=== PATIENT | male | born 1950 | race Caucasian/White ===

== ENCOUNTER 2018-03-17 15:38 | Outpatient (REF) | payer MEDICARE, SELFPAY ==
[2018-03-17 19:45] LABS: Abs Immature Grans 0.02 k/cumm (0.0-0.09); Absolute Basophil Count 0.04 k/cumm (0.0-0.2); Absolute Eosinophil Count 0.15 k/cumm (0.0-0.7); Absolute Lymphocyte Count 1.88 k/cumm (1.2-3.4); Absolute Monocyte Count 0.49 k/cumm (0.11-0.7); Absolute Neutrophil Count 4.66 k/cumm (1.2-6.7); Basophils % 0.6; Eosinophils % 2.1; HCT 41.3 % (40.0-50.0); HGB 14.1 g/dL (13.5-17.5); Immature Grans % 0.3; Mean Corp. HGB Concentration 34.1 g/dL (32.0-36.0); Mean Corpuscular Hemoglobin 30.4 pg (27.0-33.0); Monocytes % 6.8; Neutrophils % 64.2; Platelet Count 229 x1000/uL (130-400); RBC 4.64 m/cumm (4.50-6.00); RBC Distribution Width 12.5 % (11.8-14.1); White Blood Cell Count 7.24 k/cumm (4.4-10.8)
[2018-03-17 19:54] LABS: Anion Gap 9.8 mmol/L (3-11); BUN 19 mg/dL (7-18); CO2 27.2 mmol/L (21.0-32.0); CREATININE 0.94 mg/dL (0.70-1.30); Calcium 8.8 mg/dL (8.5-10.1); Chloride 105 mmol/L (98-107); Glucose 85 mg/dL (70-100); Potassium 4.5 mmol/L (3.5-5.1); Sodium 142 mmol/L (136-145); Uric Acid 6.4 mg/dL (3.5-7.2)
== END 2018-03-17 15:58 ==
LOC: NCHCN 15:38
PROVIDERS: PCP Specialist/Technologist Athletic Trainer; Visit Provider Physician Assistant Medical
DX: M10.9 Gout, unspecified (principal)
CPT/HCPCS: 80048; 84550; 85025

== ENCOUNTER 2019-01-11 09:09 | Outpatient (REF) | payer MEDICARE, SELFPAY ==
[2019-01-11 21:50] LABS: Anion Gap 11.9 mmol/L (3-11); BUN 20 mg/dL (7-18); CO2 24.1 mmol/L (21.0-32.0); CREATININE 0.89 mg/dL (0.70-1.30); Calcium 8.7 mg/dL (8.5-10.1); Calculated LDL 135 mg/dL; Chloride 105 mmol/L (98-107); Cholesterol 201 mg/dL (50-200); Glucose 86 mg/dL (70-100); HDL Cholesterol 44 mg/dL (40-60); Potassium 4.3 mmol/L (3.5-5.1); Sodium 141 mmol/L (136-145); Triglyceride 113 mg/dL (30-150)
== END 2019-01-11 09:29 ==
LOC: NCHCN 09:09
PROVIDERS: PCP Specialist/Technologist Athletic Trainer; Visit Provider Specialist/Technologist Athletic Trainer
DX: E78.5 Hyperlipidemia, unspecified (principal); R81 Glycosuria
CPT/HCPCS: 80048; 80061; 83721

== ENCOUNTER 2019-02-13 19:18 | Emergency (ER) | payer MEDICARE, OTHER, SELFPAY ==
[2019-02-13 19:25] VITALS: BP 126/71; PULSE 61; RESP 18; TEMP 37; O2SAT 95
--- NOTE | 2019-02-13 19:49 | W.ED.GENAD ---
Discharge Plan Disposition Patient Disposition: HOME Condition: Stable Discharge Details Chief Complaint: Burn Clinical Impression: Burn of arm, left, second degree Primary Care Provider: Eusebio Montoya ED Provider: Maury Maier Home Meds and New Rx's Prescriptions: No Action ibuprofen 200 mg capsule 600 mg PO TID PRNRF: 0 fluticasone propionate [Flonase Allergy Relief] 50 mcg/actuation spray,suspension 1 spray PERRI DAILY RF: 0 loratadine-pseudoephedrine [Claritin-D 24 Hour] 10-240 mg tablet extended release 24 hr 1 tab PO DAILY RF: 0 Discharge Instructions Instructions: Second Degree Burn (ED), Acute Wound Care (ED) Additional Instructions: Please keep dressing in place for the next 3 to 7 days to ensure appropriate healing. Watch for signs of any worsening symptoms or infection of the wound if this occurs return to the emergency department for reassess. Feel free to follow-up with primary care provider also as needed for reassessment and wound check. Referrals: Eusebio Montoya [Primary Care Provider] - (As needed for reassessment or if not healing well) Medical Decision Making Patient presenting to the emergency department for chief complaint of left forearm burn. Patient reports yesterday while working on a radiator [employer] he suffered a steam burn to his forearm. He noted redness yesterday but no other symptoms. He did state it was painful and had sensation at that time. Today he went to work and covered it and worked all day but when he removed the dressing and showed his family they requested he come to emergency department for evaluation. Patient has a second-degree burn to the volar aspect of the left forearm that is approximately 1% of body surface area using palmar method. Patient does have some blisters and some slight sloughing of skin surrounded by other popped blisters. Sensation is intact patient has a very high pain threshold denies severe significant pain. Plan to coat with bacitracin and placed on Ag Mepilex dressing. Otherwise I feel the patient given that this is greater than 24 hours old may follow-up with primary care provider as needed or return for any new or worsening symptoms. Patient's tetanus is up-to-date. After discussion of diagnosis and plan of care patient has no further needs, questions, or concerns and states clear understanding to return to the emergency department for any worsening symptoms. HPI General Mode of arrival: ambulatory. Date/Time Provider Initiated Documentation: 02/13/19 19:28. Limitations to Documentation: no limitations. Information obtained by: patient and RN notes reviewed. History of Present Illness 68 year old M presents to the emergency department with the chief complaint of Left arm burn, described as mild, with intensity rated at 1. Quality is described as aching (Tingling), and is localized to the left and upper extremity. Patient started experiencing this day(s) (1) and it has been constant. Patient notes no other symptoms.. Patient did receive the following treatments prior to arrival, none Related Data Home Medications Medication Instructions Recorded Confirmed fluticasone propionate 50 1 spray PERRI DAILY 02/13/19 02/13/19 mcg/actuation nasal spray,suspension ibuprofen 200 mg capsule 600 mg PO TID PRN cap 02/13/19 02/13/19 loratadine-pseudoephedrine ER 10 1 tab PO DAILY 02/13/19 02/13/19 mg-240 mg tablet,extended [id number] Allergies Allergy/AdvReac Type Severity Reaction Status Date / Time No Known Allergies Allergy Unverified 02/13/19 19:30 General Stated Complaint: Burn HOWARD: 4 Review of Systems Constitutional Denies fever(s) Cardiovascular Denies chest pain and Denies dyspnea Respiratory Denies dyspnea Integumentary/Breasts Reports as per HPI and Reports other (Burn) Neurologic Denies sensory deficit [facility] Medical History Bradycardia (Acute) Chronic back pain (Acute) Dermatitis (Acute) Social History Smoking/Tobacco Use Status: Never Drug use: Never Do you feel safe in your relationship?: Yes Exam Const General: cooperative, no acute distress and not ill appearing Orientation: alert, awake and oriented x3 HENMT Mouth: moist mucous membranes Resp Effort & Inspection: normal respiratory effort, able to speak in complete sentences and no respiratory distress Cardio Rate: regular rate Rhythm: regular rhythm Skin Wounds: wounds noted (Second-degree burn with blisters and some sloughing of skin) left volar forearm Course Vital Signs Temperature 37 C 02/13/19 19:25 Pulse 61 02/13/19 19:25 Respiratory Rate 18 02/13/19 19:25 Blood Pressure 126/71 02/13/19 19:25 Pulse Oximetry 95 02/13/19 19:25 Temperature 37 C 02/13/19 19:25 Temperature Source Skin 02/13/19 19:25 Pulse 61 02/13/19 19:25 Respiratory Rate 18 02/13/19 19:25 Blood Pressure 126/71 02/13/19 19:25 Blood Pressure Position Sitting 02/13/19 19:25 Pulse Oximetry 95 02/13/19 19:25 Oxygen Delivery Method Room Air 02/13/19 19:25 Oxygen Flow Rate 0 02/13/19 19:25 Pain Level 0 02/13/19 19:25
== END 2019-02-13 20:16 | disposition home or self-care (01) ==
PROVIDERS: Emergency Provider Nurse Practitioner Family; PCP Specialist/Technologist Athletic Trainer
DX: T22.212A Burn of second degree of left forearm, initial encounter (principal); X13.1XXA Other contact with steam and other hot vapors, initial encounter; T31.0 Burns involving less than 10% of body surface
CPT/HCPCS: 16020

== ENCOUNTER → 2019-03-29 14:32 | Outpatient (BNVA) | payer MEDICARE, OTHER, SELFPAY | PROVIDERS: PCP Specialist/Technologist Athletic Trainer; Referring Provider Specialist/Technologist Athletic Trainer; Visit Provider Physical Therapy Assistant | DX: Z12.11 Encounter for screening for malignant neoplasm of colon (principal) ==

== ENCOUNTER 2019-04-11 11:42 | Outpatient (CLI) | payer MEDICARE, OTHER, SELFPAY ==
--- NOTE | 2019-04-11 11:53 | DI.RAD_ITS ---
EXAM: XR KNEE LT 3V AP,LAT,YOGI INDICATION: LT KNEE PAIN, M25.562. COMPARISON: No exams were available for comparison TECHNIQUE: 2D digital imaging was performed. FINDINGS: The bony structures are normally mineralized and joint spaces intact. Hypertrophic spurring is ident ified at the insertion of the quadriceps tendon on the patella. There is no evidence of a fracture o r dislocation. There is no evidence of a joint effusion.
== END 2019-04-11 12:02 ==
PROVIDERS: PCP Specialist/Technologist Athletic Trainer; Visit Provider Internal Medicine Hematology
DX: M25.562 Pain in left knee (principal)
CPT/HCPCS: 73562

== ENCOUNTER 2019-04-23 06:13 | Day surgery (SDC) | payer MEDICARE, OTHER, SELFPAY ==
[2019-04-23 06:24] VITALS: BP 109/69; PULSE 61; RESP 16; TEMP 36.1; O2SAT 97
--- NOTE | 2019-04-23 06:41 | W.COLOREPORT ---
Date of service: 04/23/19 Time of Service: 07:21 Colonoscopy Report Date of procedure: 04/23/19 Pre-op diagnosis general: Colon Cancer Screening Post-op diagnosis procedure note: other (colorectal polyps, diverticulosis, internal hemorrhoids) Procedure: Colonoscopy with polypectomy by cold forceps Surgeon: Meg Srivastvaa Anesthesia proc note operative: other (General/ ASA 2/Brian Bennett, JD) Estimated blood loss (mL): 3 Pathology: other (ascending polyp and sigmoid polyp) Complications: None Disposition: same day Indications: Mr. Contreras is a pleasant 68-year-old gentleman who is here today for a screening colonoscopy. His last colonoscopy was in 2000 and was normal. He has no family history of colon cancer. Risks, benefits and complications have been reviewed. Complications include but are not limited to bleeding, pain, perforation, missed small lesion/polyp, sore throat, aspiration and adverse reaction to the medications. Questions were entertained and answered to their satisfaction and they wished to proceed. No guarantees were given or implied. Prep: Miralax/Dulcolax Procedure Start Time: :21 Procedure End Time: 07:49 Retraction Time: 22 minutes Findings: 2 small sessile polyps. Both <10 mm mild sigmoid diverticulosis Grade 1 internal hemorrhoids Procedure Description: After informed consent was obtained the patient was taken to the procedure room and placed in a left decubitous position. Monitors were applied and a time out was done. The patients name, date of , procedure, allergies to medications and metal in their body was reviewed. The patient was then sedated. Once sedated and comfortable a rectal exam was done. External exam revealed mild rectal prolapse. Internal exam revealed a normal sphincter tone and no palpable masses. The prostate felt smooth. The scope was then introduced and retro-flexed. Grade 1 internal hemorrhoids were identified. The scope was then advanced to the cecum without difficulty. The TI and appendiceal orifice were identified. The prep was good. The scope was then slowly retracted over 22 minutes back into the rectum. Polyps were removed with cold forceps in the ascending colon and sigmoid colon. There was mild diverticulosis of the sigmoid colon. The scope was removed and the patient was woken up and taken back to Same day surgery in stable condition. The patient tolerated the procedure well and there were no immediate complications. Follow up: Follow up will depend on final pathology.
--- NOTE | 2019-04-23 06:42 | W.PM.DSUDISC ---
Discharge Plan Disposition Patient Disposition: HOME Condition: Good Discharge Details Reason For Visit: Colonoscopy Attending Provider: Meg Srivastava Primary Care Provider: Eusebio Montoya Home Meds and New Rx's Prescriptions: Continued ibuprofen 200 mg capsule 600 mg PO TID PRNRF: 0 fluticasone propionate [Flonase Allergy Relief] 50 mcg/actuation spray,suspension 1 spray PERRI DAILY RF: 0 loratadine-pseudoephedrine [Claritin-D 24 Hour] 10-240 mg tablet extended release 24 hr 1 tab PO DAILY RF: 0 Discontinued polyethylene glycol 3350 17 gram/dose powder 238 g PO ONCE Qty: 238 RF: 0 bisacodyl [Dulcolax (bisacodyl)] 5 mg tablet,delayed release (DR/EC) 5 mg PO ONCE Qty: 4 RF: 0 Discharge Instructions Instructions: Colonoscopy (DC), Diverticulosis (DC), Hemorrhoids (DC) Additional Instructions: Findings: 2 small polyps Diverticulosis Internal hemorrhoids Follow up: depends on final pathology Please call if you develop: fevers >101.5 Nausea or Vomiting Abdominal pain that is not transient DAY SURGERY UNIT POST ENDOSCOPY INSTRUCTIONS 1. Because there will be medication in your system for the next 24 hours, you may feel a little sleepy. Your coordination will be affected. Therefore: a. Do not drive or operate dangerous equipment for 24 hours. b. Do not drink alcohol beverages for 24 hours (not even beer). c. Plan to go home and rest for the day. 2. Generally there are no restrictions on your activity after a day or so has gone by, but you may feel a bit fatigued for a few days. 3 After you arrive home you may have a light meal and return to a normal diet as you can tolerate it without feeling sick to your stomach. 4. After surgery, you may feel pain or discomfort. This should be only transient, but if it persists please contact your doctor. 5. If there are any questions regarding the findings of your procedure, please feel free to contact your doctor. 6. If you are unable to contact your doctor with a problem, contact the hospital at [phone]. 7. Continue all your regular medications unless directed otherwise. I understand the above instructions and have no questions. Signature of Patient or Responsible Adult Escort Date/Time Name of Responsible Adult Escort Signature of Nurse Date/Time Activity:: Activity as Tolerated Diet:: As Tolerated Discharge Orders Discharge Orders: Discharge Order (Routine); Ordered 04/23/19 Ordered By: Meg Srivastava DS: Diagnosis Discharge Diagnosis (1) S/P colonoscopy: Status: Acute (2) Diverticulosis: Status: Acute (3) Colorectal polyps: Status: Acute
[2019-04-23] MEDS: Lactated Ringers 1,000 ML 80 ML IV (06:49)
--- NOTE | 2019-04-23 07:32 | BOWEL_PTH ---
PATIENT: Eduardo Contreras LOC: [facility] U#:[id number] AGE/SX: 68/M ROOM: RE04/23/[address]: Meg Srivastava MD : 1950 BED: DIS: 04/23/2019 SPEC #: [id number] RECD: 04/23/19 11:54 STATUS: LUZ RE #: [id number] ADILSON: 04/23/19 07:[address]: Meg Srivastava DEPT: Surgical Specimen RECD BY: Tiny Espinosa ENTERED: 04/23/19 11:55 SP TYPE: Bowel OTHR DR: Eusebio Montoya Tissues: 1 - BIOPSY BOWEL 2 - BIOPSY BOWEL Procedures: GROSS AND MICRO LEVEL 4 Comments: [id number]
[2019-04-23 08:33] VITALS: BP 103/69; PULSE 54; RESP 16; TEMP 36.2; O2SAT 96
== END 2019-04-23 09:00 | disposition home or self-care (01) ==
PROVIDERS: PCP Specialist/Technologist Athletic Trainer; Visit Provider Surgery
PROC: 0DJD8ZZ Inspection of Lower Intestinal Tract, Via Natural or Artificial Opening Endoscopic (ICD-10-PCS; CPT 45378; principal; 2019-04-23 07:30)
DX: Z12.11 Encounter for screening for malignant neoplasm of colon (principal); D12.2 Benign neoplasm of ascending colon; K57.30 Diverticulosis of large intestine without perforation or abscess without bleeding; K64.0 First degree hemorrhoids; K63.5 Polyp of colon
CPT/HCPCS: 45380; 88305

== ENCOUNTER 2020-05-23 14:52 | Outpatient (REF) | payer MEDICARE, OTHER, SELFPAY ==
[2020-05-23 21:01] LABS: Anion Gap 5.2 mmol/L (3-11); BUN 20 mg/dL (7-18); CO2 27.8 mmol/L (21.0-32.0); Calcium 8.4 mg/dL (8.5-10.1); Calculated LDL 159 mg/dL (<100); Chloride 103 mmol/L (98-107); Cholesterol 231 mg/dL (<200); Glucose 103 mg/dL (74-106); HDL Cholesterol 61 mg/dL (40-60); Potassium 4.6 mmol/L (3.5-5.1); Sodium 136 mmol/L (136-145); Triglyceride 57 mg/dL (<150)
== END 2020-05-23 15:12 ==
LOC: NCHCN 14:52
PROVIDERS: PCP Specialist/Technologist Athletic Trainer; Visit Provider Nurse Practitioner Family
DX: E78.5 Hyperlipidemia, unspecified (principal); R73.9 Hyperglycemia, unspecified
CPT/HCPCS: 80048; 80061

== ENCOUNTER 2020-11-28 19:16 | Outpatient (REF) | payer MEDICARE, OTHER, SELFPAY ==
[2020-12-01 11:00] LABS: Lyme Ab w Rflx to Lyme Confirm Negative (Negative)
[2020-12-02 22:28] LABS: Anaplasma phagocytophilum Negative (Negative); B. miyamotoi PCR Negative (Negative); Babesia divergens/MO-1 Negative (Negative); Babesia duncani Negative (Negative); Babesia microti Negative (Negative); Ehrlichia chaffeensis Negative (Negative); Ehrlichia ewingii/canis Negative (Negative); Ehrlichia muris eauclairensis Negative (Negative)
== END 2020-11-28 19:17 | disposition home or self-care (01) ==
LOC: NCHCN 19:16
PROVIDERS: PCP Specialist/Technologist Athletic Trainer; Visit Provider Nurse Practitioner Family
DX: W57.XXXA Bitten or stung by nonvenomous insect and other nonvenomous arthropods, initial encounter (principal); T14.8XXA Other injury of unspecified body region, initial encounter
CPT/HCPCS: 87798; 86618

== ENCOUNTER 2020-12-05 18:12 | Outpatient (REF) | payer MEDICARE, OTHER, SELFPAY ==
[2020-12-08 10:52] LABS: Hepatitis C Ab w Rflx HCV PCR Negative (Negative)
== END 2020-12-05 18:13 | disposition home or self-care (01) ==
LOC: NCHCN 18:12
PROVIDERS: PCP Specialist/Technologist Athletic Trainer; Visit Provider Nurse Practitioner Family
DX: Z11.59 Encounter for screening for other viral diseases (principal)
CPT/HCPCS: 86803

== ENCOUNTER 2021-06-05 10:18 | Outpatient (REF) | payer MEDICARE, OTHER, SELFPAY ==
[2021-06-05 12:48] LABS: Anion Gap 8.4 mmol/L (3-11); BUN 21 mg/dL (7-18); CO2 26.6 mmol/L (21.0-32.0); Calcium 8.6 mg/dL (8.5-10.1); Calculated LDL 123 mg/dL (<100); Chloride 105 mmol/L (98-107); Cholesterol 216 mg/dL (<200); Glucose 92 mg/dL (74-106); HDL Cholesterol 54 mg/dL (40-60); Potassium 4.5 mmol/L (3.5-5.1); Sodium 140 mmol/L (136-145); Triglyceride 199 mg/dL (<150)
[2021-06-05 13:37] LABS: Hemoglobin A1C 6.1 % (<5.7)
== END 2021-06-05 10:19 | disposition home or self-care (01) ==
LOC: NCHCN 10:18
PROVIDERS: PCP Family Medicine; Visit Provider Nurse Practitioner Family
DX: E78.5 Hyperlipidemia, unspecified (principal); R73.03 Prediabetes
CPT/HCPCS: 80048; 80061; 83036

== ENCOUNTER → 2022-11-11 13:35 | Outpatient (BNVA) | payer MEDICARE, OTHER, SELFPAY | PROVIDERS: PCP Family Medicine; Referring Provider Family Medicine; Visit Provider Urology | DX: N48.0 Leukoplakia of penis (principal) | CPT/HCPCS: 99203 ==

== ENCOUNTER 2022-11-30 15:49 | Outpatient (REF) | payer MEDICARE, OTHER, SELFPAY ==
[2022-11-30 16:07] LABS: Abs Immature Grans 0.02 10^3/uL (0.0-0.06); Absolute Basophil Count 0.05 10^3/uL (0.0-0.2); Absolute Eosinophil Count 0.15 10^3/uL (0.0-0.7); Absolute Lymphocyte Count 1.68 10^3/uL (1.2-3.4); Absolute Neutrophil Count 2.31 10^3/uL (1.2-6.7); Basophils % 1.1; Eosinophils % 3.3; HCT 38.9 % (40.0-50.0); HGB 13.2 g/dL (13.5-17.5); Immature Grans % 0.4; Lymphocytes % 36.4; MCH 30.3 pg (27.0-33.0); MCHC 33.9 % (32.0-36.0); MCV 89 fL (80-95); MPV 10.7 fL (8.0-11.0); Monocytes % 8.7; Neutrophils % 50.1; Platelet Count 211 10^3/uL (130-400); RBC 4.36 10^6/uL (4.36-5.78); RDW 12.3 % (11.8-14.1); RDW-SD 40.8 fL; WBC 4.61 10^3/uL (4.4-10.8)
[2022-11-30 16:27] LABS: ALT 38 U/L (16-63); AST 32 U/L (15-37); Albumin 3.6 g/dL (3.4-5.0); Alkaline Phosphatase 50 U/L (46-116); BUN 17 mg/dL (7-18); Bilirubin, Total 0.4 mg/dL (0.2-1.0); CREATININE 0.8 mg/dL (0.70-1.30); Calcium 8.3 mg/dL (8.5-10.1); Calculated LDL 118 mg/dL (<100); Chloride 107 mmol/L (98-107); Cholesterol 186 mg/dL (<200); Estimated GFR 94.62 (mL/min/1.73m2); Glucose 119 mg/dL (74-106); HDL Cholesterol 54 mg/dL (40-60); Potassium 4.1 mmol/L (3.5-5.1); Sodium 139 mmol/L (136-145); Total Protein 7.5 g/dL (6.4-8.2); Triglyceride 74 mg/dL (<150)
== END 2022-11-30 15:50 | disposition home or self-care (01) ==
LOC: NCHCN 15:49
PROVIDERS: PCP Family Medicine; Visit Provider Nurse Practitioner Family
DX: E78.5 Hyperlipidemia, unspecified (principal); R73.03 Prediabetes; N13.5 Crossing vessel and stricture of ureter without hydronephrosis; J32.8 Other chronic sinusitis
CPT/HCPCS: 80053; 80061; 83036; 85025

== ENCOUNTER → 2022-12-17 09:42 | Outpatient (BNVA) | payer MEDICARE, OTHER, SELFPAY | PROVIDERS: PCP Family Medicine; Referring Provider Family Medicine; Visit Provider Urology | DX: N35.911 Unspecified urethral stricture, male, meatal (principal) | CPT/HCPCS: 99214 ==

== ENCOUNTER 2023-01-03 07:06 | Day surgery (SDC) | payer MEDICARE, OTHER, SELFPAY ==
[2023-01-03] VITALS (7 sets, daily range): BP systolic 95–117; BP diastolic 51–86; PULSE 34–47; RESP 13–17; TEMP 36–36.5; O2SAT 95–98; BMI 24.5
[2023-01-03] MEDS: Lactated Ringers 1,000 ML 80 ML IV (08:10)
--- NOTE | 2023-01-03 08:18 | W.PM.HP.N ---
Date of service: 01/03/23 Time of Service: 08:46 Assessment and Plan Assessment and plan (1) Urethral meatal stenosis: Status: Acute Assessment and plan: We will plan to biopsy the tissue at the urethral meatus and dilate the area. We will likely leave a urethral catheter in place after the procedure until the biopsy site heals. History of Present Illness Narrative: This is a 72-year-old gentleman who tells me that he has had spraying of his urinary stream for about a year.? More recently, he felt a firm area on the glans.? Since feeling the firm area, he actually has had a less spraying but more postvoid dribbling.? He has no gross hematuria and no dysuria.? He has no history of kidney stones or recurrent urinary tract infections. He has never had a circumcision.? He has never been catheterized.? His only other urologic procedure is a vasectomy. He was treated with a trial of a topical steroid ointment with no improvement. he presents for biopsy of the urethral meatus and urethral dilation. Review of Systems Narrative: No fevers or chills Chronic sinusitis. No vision change or dysphasia No diabetes or thyroid No shortness of breath, cough or hemoptysis No chest pain or palpitations No nausea, vomiting, hepatitis, ulcers, jaundice No seizures, strokes or peripheral neuropathy No bleeding disorders or anemia No gout PFSH All Active Problems Urethral meatal stenosis (Acute) Phlegm in throat (Acute) Chronic rhinosinusitis (Acute) Postnasal drip (Acute) Leg cramps (Acute) Prediabetes (Acute) Preventative health care (Acute) Hx of adenomatous colonic polyps (Acute) Skin lesion of face (Acute) Pharyngeal mucositis (Acute) Vision changes (Acute) Hordeolum (Acute) Colorectal polyps (Acute) Diverticulosis (Acute ~04/23/19) S/P colonoscopy (Acute ~04/23/19) 05/08 - serrated adenoma. 2000- normal Hyperlipidemia (Acute) Chronic cough (Acute) Glucosuria (Acute) Fatty liver (Acute) Chronic back pain (Acute) Bradycardia (Acute) Dermatitis (Acute) Medical History Balanitis xerotica obliterans Social History Smoking/Tobacco Use Status: Never Smoking risk assessment performed?: Yes Alcohol Intake: current Alcohol Intake frequency: holidays/special occasions only Alcohol type: beer Drug use: Never Substance use type: does not use Housing: house Pets and animals: Yes Pets and animals: dog(s) Current gender identity: male Do you feel safe at home: Yes Do you feel safe in your relationship?: Yes Meds Allergies and Home Medications Allergies Allergy/AdvReac Type Severity Reaction Status Date / Time No Known Allergies Allergy Unverified 12/31/22 11:38 Home Medications Medication Instructions Recorded Confirmed Type ibuprofen 200 mg capsule 600 mg PO TID PRN 02/13/19 01/03/23 History varicella-zoster glycoE [id number] 0.5 ml IM ONCE 03/31/21 01/03/23 History adj(PF) 50 mcg/0.5 mL IM susp, kit (Shingrix (PF)) Exam Const General: cooperative Neck Neck: supple Resp Effort & Inspection: normal respiratory effort Auscultation: clear to auscultation bilaterally Cardio Rate: regular rate Rhythm: regular rhythm GI Inspection: normal to inspection Palpation: soft and no masses Neuro General: patient alert, patient awake and patient oriented x3 Results Last Vital Signs Temp 36.5 C 01/03/23 07:29 Pulse 47 L 01/03/23 07:29 Resp 16 01/03/23 07:29 BP 113/86 01/03/23 07:29 Pulse Ox 96 01/03/23 07:29 Time Spent Time spent with Patient: <40 minutes Time was spent: other
--- NOTE | 2023-01-03 08:35 | W.ANESPRE ---
General Info Date of Service Date Performed: 01/03/23 Height: 5 ft 8 in Weight: 73.2 kg Body Mass Index (BMI): 24.5 Surgical Procedure: Operation Date: 01/03/23 08:40 Proposed Procedure Side Surgeon p Cystoscopy/Urethral Dilation/Penile Biopsy Moisés Hardy MD Actual Procedure Side Surgeon p Cystoscopy/Urethral Dilation/Penile Biopsy Not Applicable Moisés Hardy MD Meds Allergies and Home Medications Allergies Allergy/AdvReac Type Severity Reaction Status Date / Time No Known Allergies Allergy Unverified 12/31/22 11:38 Home Medication Medication Instructions Recorded ibuprofen 200 mg capsule 600 mg PO TID PRN 02/13/19 varicella-zoster glycoE [id number] 0.5 ml IM ONCE 03/31/21 adj(PF) 50 mcg/0.5 mL IM susp, kit (Shingrix (PF)) Current Visit Medications: Current Medications Generic Name Dose Route Start Last Admin Trade Name Freq PRN Reason Stop Dose Admin Ringer's Solution 1,000 mls @ 80 mls/hr 01/03/23 06:00 01/03/23 08:10 IV 01/30/23 23:59 80 mls/hr INFUSION AIRAM Administration Cefazolin Sodium/Dextrose 2 gm in 50 mls @ 100 mls/hr 01/03/23 06:00 Ancef Duplex IVPB 01/03/23 16:00 PREOP AIRAM IV Miscellaneous Supplies 1 each 01/03/23 06:00 Iv Access IV 01/30/23 23:59 DIRECTED AIRAM Sodium Chloride 0 ml 01/03/23 06:00 Normal Saline Flush 10 Ml Syr IV 01/30/23 23:59 PRN PRN Sodium Chloride 0 ml 01/03/23 06:00 Normal Saline 10 Ml Vial IJ 01/30/23 23:59 DIRECTED PRN Sterile Water 0 ml 01/03/23 06:00 Water,Injection,Sterile 10 Ml Vial IJ 01/30/23 23:59 DIRECTED PRN PFSH Active Problems Active Problems: Problem Status Onset Code Urethral meatal stenosis N35.919 Phlegm in throat R09.89 Chronic rhinosinusitis J31.0, J32.9 Postnasal drip R09.82 Leg cramps R25.2 Prediabetes R73.03 Preventative health care Z00.00 Hx of adenomatous colonic polyps Z86.010 Skin lesion of face L98.9 Pharyngeal mucositis K12.30 Vision changes H53.9 Hordeolum H00.019 Colorectal polyps K63.5 Diverticulosis ~04/23/19 K57.90 S/P colonoscopy ~04/23/19 Z98.890 Hyperlipidemia E78.5 Chronic cough R05 Glucosuria R81 Fatty liver K76.0 Chronic back pain M54.9, G89.29 Bradycardia R00.1 Dermatitis L30.9 Medical History Medical History Balanitis xerotica obliterans Medical History Comments:: 01/03/23 post nasal drip Tobacco Smoking/Tobacco Use Status: Never Alcohol Alcohol Intake: current Alcohol intake frequency: holidays/special occasions only Alcohol type: beer Substance Use Substance use: Never Substance use type: does not use Vital Signs and Lab Results Vital Signs Most Recent Vital Signs in EMR: Most Recent Vital Signs Temp Pulse Resp BP Pulse Ox 36.5 C 47 L 16 113/86 96 01/03/23 07:29 01/03/23 07:29 01/03/23 07:29 01/03/23 07:29 01/03/23 07:29 Point of Care Results Point of Care Results: Finger Stick Blood Glucose 105 01/03/23 07:58 Lab Results Blood Type / Crossmatch: No Data to Display Complete Blood Count: No Data to Display Complete Metabolic Panel: No Data to Display Liver Function Panel: No Data to Display Coagulation Panel: No Data to Display Cardiac Panel: No Data to Display Arterial Blood Gas: No Data to Display Venous Blood Gas: No Data to Display Pancreas Panel: No Data to Display Thyroid Panel: No Data to Display Infectious Disease: No Data to Display Blood Cultures: No Data to Display Toxicology Panel: No Data to Display Anesthesia Assessment and Plan Anesthesia History Personal History: No History of Anesthesia Complications Family History: No Family History of Anesthesia Complications Exercise Tolerance Exercise Tolerance: Metabolic Equivalents>4 Pertinent Negatives Pertinent Negatives: No Symptoms of GERD Cardiac & Pulmonary Exam Cardiac Exam: Normal S1/S2 Heart Sounds Pulmonary Exam: Clear Bilateral Breath Sounds Implantable Cardiac Device Does patient have a Pacemaker or an ICD?: No Airway Exam Known Difficult Airway: No Mallampati Class: 2 Mouth Opening: Normal (> 3cm) Thyromental Distance: Less than 3 cm Neck Range of Motion: Full ROM Neck Circumference: Normal Teeth Condition: Normal Dentition ASA Classification ASA Score: ASA 2 Emergency Case?: No NPO Status NPO Status: NPO Clears >2 hours, Solids >8 hours Anesthesia Plan Resuscitation Status: Full Code Anesthesia Technique: General Anesthesia Airway Planned: LMA Monitors Used: Standard Monitors
[2023-01-03] MEDS: ceFAZolin 2 GM/50 ML BAG IVPB (08:59)
--- NOTE | 2023-01-03 09:13 | URETHRABX_PTH ---
PATIENT: Eduardo Contreras LOC: [facility] U#:[id number] AGE/SX: 72/M ROOM: RE01/03/[address]: Moisés Hardy MD : 1950 BED: DIS: 01/03/2023 SPEC #: [id number] RECD: 01/03/23 12:05 STATUS: LUZ RE #: [id number] ADILSON: 01/03/23 09:[address]: Moisés Hardy DEPT: Surgical Specimen RECD BY: yLssa Garcia ENTERED: 01/03/23 12:08 SP TYPE: URETHRABX OTHR DR: SOPHY NOE, LORETA Tissues: 1 - URETHRA BIOPSY Procedures: GROSS AND MICRO LEVEL 4 IMMUNOPEROXIDASE STAIN Comments: [id number]
--- NOTE | 2023-01-03 09:25 | W.PM.OP ---
Date of service: 01/03/23 Time of Service: 09:25 Operative Note Operative Note DATE OF PROCEDURE: 01/03/23 PRE-OP DIAGNOSIS: Meatal Stenosis POST-OP DIAGNOSIS: same PROCEDURE: Penile biopsy, urethral dilation, cystoscopy, insert urethral catheter SURGEON: Moisés Hardy ANESTHESIA TYPE: General LMA/ETT Refer to Anesthesia Record ESTIMATED BLOOD LOSS: 25 PATHOLOGY: other (urethral meatal biopsy) COMPLICATIONS: None Patient was transported to: PACU Patient's condition: stable Implants: 16 [place] [employer] tipped catheter with 10 cc sterile water in balloon Indications: This is a 72-year-old gentleman who has a history of spraying of his urinary stream over the past year or so. He then developed a firm area out at the urethral meatus. Clinically, we treated him with a topical steroid for presumptive diagnosis of balanitis xerotica obliterans. He had no improvement in either his urinary stream or the firmness of the penile mass. He presents now for biopsy of the area and urethral dilation. We plan on doing cystoscopy to evaluate the extent of any narrowing of the urethra. Findings: Meatal stenosis Procedure Description: The patient was brought to the operating room on 01/03/2023. He was given a dose of IV antibiotics. After successful induction of general anesthesia with intubation, he was placed in the dorsal lithotomy position. His genitalia was prepped and draped. Examination of the urethral meatus revealed a stenotic area with firmness of the surrounding glanular tissue. I was able to pass a guidewire through the urethral meatus and advanced the wire into the bladder. With the wire placed, I took an excisional biopsy of some of the firm tissue at the urethral meatus. The tissue was placed in formalin and sent to pathology for permanent section. I was then able to dilate the urethral meatus over the wire. We used urethral dilators to go from 14 [place] size up to 24 [place] size. Once the dilation was complete, I then passed a 22 [place] rigid cystoscope through the urethra alongside of the wire. I inspected the urethra using a 30 degree lens. The length of the stenotic area was less than a centimeter. The remainder the urethra appeared normal with no additional stenotic areas. The bladder appeared normal with no papillary or nodular lesions. The cystoscope was then withdrawn and a 16 [place] citizen [place] tip catheter was passed over the wire. The catheter was advanced until the tip was in the bladder. The catheter balloon was inflated with 10 cc of sterile water and the catheter was hooked to gravity drainage. Once the catheter was placed, I used simple interrupted 4-0 chromic sutures to reapproximate the edges of the urethral and penile mucosa. A Xeroflo dressing was applied at the urethral meatus. The patient tolerated this procedure well with no complications.
--- NOTE | 2023-01-03 09:28 | W.PM.DSUDISC ---
Date of service: 01/03/23 Time of Service: 09:28 Discharge Plan Disposition Patient Disposition: Home Condition: Stable Discharge Details Reason For Visit: meatal stenosis Attending Provider: Moisés Hardy Primary Care Provider: SOPHY NOE Home Meds and New Rx's Prescriptions: No Action ibuprofen 200 mg capsule 600 mg PO TID PRN Shingrix (PF) 50 mcg/0.5 mL suspension for reconstitution 0.5 ml IM ONCE Discharge Instructions Additional Instructions: black to leg bag followup 3 to 5 days for catheter removal followup appt 2 to 3 week for biopsy results Activity:: no lifting over 10 pounds for 48 hours Shower/Bathe:: 24 hours Diet:: As Tolerated Discharge Orders Discharge Orders: Discharge Order (Routine); Ordered 01/03/23 Ordered By: Moisés Hardy DS: Diagnosis Discharge Diagnosis (1) Urethral meatal stenosis: Status: Acute
--- NOTE | 2023-01-03 10:06 | W.ANESPOSTOP ---
Postoperative Evaluation Date, Time and Location Date Performed: 01/03/23 Time Performed: 10:06 Patient Location: Day Surgery Unit Vital Signs Most Recent Imported Vital Signs: Most Recent Vital Signs Temp Pulse Resp BP Pulse Ox 36.1 C L 39 L 16 103/73 96 01/03/23 09:54 01/03/23 09:54 01/03/23 09:54 01/03/23 09:54 01/03/23 09:54 Pain Score Most Recent Pain Score: Most Recent Pain Score Pain Level 0 01/03/23 09:54 Assessment Mental Status: Awake (Alert & Oriented to Patient Baseline) Airway and Respiratory Function: Patent airway with normal (patient baseline) respiratory exam Cardiovascular Function: Hemodynamically Stable Hydration Status: Adequately Hydrated Nausea & Vomiting: No Nausea or Vomiting Pain: Pt. Denies Any Pain Peripheral Nerve Block: Patient did not receive a nerve block
== END 2023-01-03 11:33 | disposition home or self-care (01) ==
PROVIDERS: PCP Nurse Practitioner Family; Visit Provider Urology
PROC: 0T7D8ZZ Dilation of Urethra, Via Natural or Artificial Opening Endoscopic (ICD-10-PCS; CPT 52281; principal; 2023-01-03 08:30)
DX: N35.811 Other urethral stricture, male, meatal (principal)
CPT/HCPCS: 52204; 88305; 88361; J0690; J1100; J1885; J2001; J2405; J2704

== ENCOUNTER → 2023-01-06 08:05 | Outpatient (BNVA) | payer MEDICARE, OTHER, SELFPAY | PROVIDERS: PCP Nurse Practitioner Family; Referring Provider Nurse Practitioner Family; Visit Provider Nurse Practitioner Gerontology | DX: Z46.6 Encounter for fitting and adjustment of urinary device (principal); N35.811 Other urethral stricture, male, meatal | CPT/HCPCS: 99213 ==

== ENCOUNTER → 2023-01-28 15:05 | Outpatient (BNVA) | payer MEDICARE, OTHER, SELFPAY | PROVIDERS: PCP Nurse Practitioner Family; Referring Provider Nurse Practitioner Family; Visit Provider Urology | DX: N35.911 Unspecified urethral stricture, male, meatal (principal) | CPT/HCPCS: 99213 ==

== ENCOUNTER 2023-04-26 07:56 | Outpatient (REF) | payer MEDICARE, OTHER, SELFPAY | END 2023-04-26 07:57 | disposition home or self-care (01) | LOC: LBN 07:56 | PROVIDERS: PCP Nurse Practitioner Family; Visit Provider Urology | DX: R82.90 Unspecified abnormal findings in urine (principal); D49.59 Neoplasm of unspecified behavior of other genitourinary organ | CPT/HCPCS: 87086 ==

== ENCOUNTER 2023-08-09 05:24 | Outpatient (CLI) | payer MEDICARE, OTHER, SELFPAY ==
[2023-08-09 12:54] LABS: Abs Immature Grans 0.07 10^3/uL (0.0-0.06); Absolute Basophil Count 0.08 10^3/uL (0.0-0.2); Absolute Eosinophil Count 0.26 10^3/uL (0.0-0.7); Absolute Lymphocyte Count 1.49 10^3/uL (1.2-3.4); Absolute Monocyte Count 0.52 10^3/uL (0.1-0.8); Absolute Neutrophil Count 4.54 10^3/uL (1.2-6.7); Basophils % 1.1; Eosinophils % 3.7; HCT 38.9 % (40.0-50.0); HGB 13.2 g/dL (13.5-17.5); Lymphocytes % 21.4; MCH 29.9 pg (27.0-33.0); MCHC 33.9 % (32.0-36.0); MCV 88 fL (80-95); MPV 9.4 fL (8.0-11.0); Monocytes % 7.5; Neutrophils % 65.3; Platelet Count 364 10^3/uL (130-400); RBC 4.41 10^6/uL (4.36-5.78); RDW 11.9 % (11.8-14.1); RDW-SD 38.5 fL; WBC 6.96 10^3/uL (4.4-10.8)
[2023-08-09 13:28] LABS: ALT 28 U/L (16-63); AST 18 U/L (15-37); Albumin 2.9 g/dL (3.4-5.0); Alkaline Phosphatase 78 U/L (46-116); BUN 21 mg/dL (7-18); Bilirubin, Total 0.2 mg/dL (0.2-1.0); Calcium 8.9 mg/dL (8.5-10.1); Chloride 104 mmol/L (98-107); Estimated GFR 79.97 (mL/min/1.73m2); Glucose 119 mg/dL (74-106); Potassium 4.2 mmol/L (3.5-5.1); Sodium 142 mmol/L (136-145); Total Protein 7.6 g/dL (6.4-8.2)
== END 2023-08-09 05:25 | disposition home or self-care (01) ==
LOC: LBO 05:26
PROVIDERS: PCP Nurse Practitioner Family; Visit Provider Internal Medicine
DX: C60.9 Malignant neoplasm of penis, unspecified (principal)
CPT/HCPCS: 36415; 80053; 85025

== ENCOUNTER 2023-09-11 00:46 | Outpatient (RCR) | payer MEDICARE, OTHER, SELFPAY ==
[2023-09-11] MEDS: Normal Saline Flush 10 ML SYR IVP (16:30)
== END 2023-09-18 23:59 | disposition home or self-care (01) ==
LOC: INF 00:46
PROVIDERS: PCP Nurse Practitioner Family; Visit Provider Internal Medicine
DX: C60.9 Malignant neoplasm of penis, unspecified (principal)
CPT/HCPCS: 96523

== ENCOUNTER 2023-10-11 04:42 | Outpatient (RCR) | payer MEDICARE, OTHER, SELFPAY ==
[2023-09-20] MEDS: Normal Saline Flush 10 ML SYR IVP (11:55)
[2023-09-20 12:03] LABS: Abs Immature Grans 0.01 10^3/uL (0.0-0.06); Absolute Basophil Count 0.02 10^3/uL (0.0-0.2); Absolute Eosinophil Count 0.31 10^3/uL (0.0-0.7); Absolute Lymphocyte Count 0.49 10^3/uL (1.2-3.4); Absolute Monocyte Count 0.44 10^3/uL (0.1-0.8); Absolute Neutrophil Count 1.41 10^3/uL (1.2-6.7); Basophils % 0.7; Eosinophils % 11.6; HCT 34.3 % (40.0-50.0); HGB 11.5 g/dL (13.5-17.5); Immature Grans % 0.4; Lymphocytes % 18.3; MCH 29.3 pg (27.0-33.0); MCHC 33.5 % (32.0-36.0); MCV 88 fL (80-95); Monocytes % 16.4; Neutrophils % 52.6; Platelet Count 101 10^3/uL (130-400); RBC 3.92 10^6/uL (4.36-5.78); RDW-SD 39.7 fL; WBC 2.68 10^3/uL (4.4-10.8)
[2023-09-20 12:17] LABS: ALT 28 U/L (16-63); AST 22 U/L (15-37); Albumin 3.2 g/dL (3.4-5.0); Alkaline Phosphatase 64 U/L (46-116); Anion Gap 9.3 mmol/L (3-11); BUN 16 mg/dL (7-18); Bilirubin, Total 0.3 mg/dL (0.2-1.0); CO2 26.7 mmol/L (21.0-32.0); CREATININE 0.9 mg/dL (0.70-1.30); Calcium 8.5 mg/dL (8.5-10.1); Chloride 105 mmol/L (98-107); Estimated GFR 90.74 (mL/min/1.73m2); Glucose 119 mg/dL (74-106); Potassium 4.1 mmol/L (3.5-5.1); Sodium 141 mmol/L (136-145); Total Protein 7.1 g/dL (6.4-8.2)
[2023-09-27] MEDS: Normal Saline Flush 10 ML SYR IVP (13:25)
[2023-09-27 14:22] LABS: Abs Immature Grans 0.09 10^3/uL (0.0-0.06); Absolute Basophil Count 0.05 10^3/uL (0.0-0.2); Absolute Eosinophil Count 0.36 10^3/uL (0.0-0.7); Absolute Lymphocyte Count 0.48 10^3/uL (1.2-3.4); Absolute Monocyte Count 0.64 10^3/uL (0.1-0.8); Absolute Neutrophil Count 2.55 10^3/uL (1.2-6.7); Basophils % 1.2; Eosinophils % 8.6; HCT 35.4 % (40.0-50.0); HGB 12.2 g/dL (13.5-17.5); Immature Grans % 2.2; Lymphocytes % 11.5; MCHC 34.5 % (32.0-36.0); MCV 87 fL (80-95); MPV 9.2 fL (8.0-11.0); Monocytes % 15.3; Neutrophils % 61.2; Platelet Count 128 10^3/uL (130-400); RBC 4.06 10^6/uL (4.36-5.78); RDW 13.9 % (11.8-14.1); WBC 4.17 10^3/uL (4.4-10.8)
[2023-09-27 15:05] LABS: ALT 30 U/L (16-63); AST 25 U/L (15-37); Albumin 3.4 g/dL (3.4-5.0); Alkaline Phosphatase 64 U/L (46-116); Anion Gap 9.1 mmol/L (3-11); BUN 17 mg/dL (7-18); Bilirubin, Total 0.3 mg/dL (0.2-1.0); CO2 25.9 mmol/L (21.0-32.0); CREATININE 1.3 mg/dL (0.70-1.30); Calcium 8.3 mg/dL (8.5-10.1); Chloride 102 mmol/L (98-107); Estimated GFR 58.37 (mL/min/1.73m2); Glucose 127 mg/dL (74-106); Sodium 137 mmol/L (136-145); Total Protein 7.6 g/dL (6.4-8.2)
[2023-10-02] MEDS: Normal Saline Flush 10 ML SYR IVP (15:56)
[2023-10-11] MEDS: Normal Saline Flush 10 ML SYR IVP (08:19)
[2023-10-11 08:40] LABS: Abs Immature Grans 0.02 10^3/uL (0.0-0.06); Absolute Basophil Count 0.04 10^3/uL (0.0-0.2); Absolute Eosinophil Count 0.79 10^3/uL (0.0-0.7); Absolute Lymphocyte Count 0.31 10^3/uL (1.2-3.4); Absolute Monocyte Count 0.72 10^3/uL (0.1-0.8); Absolute Neutrophil Count 2.57 10^3/uL (1.2-6.7); Basophils % 0.9; Eosinophils % 17.8; HCT 33.9 % (40.0-50.0); HGB 11.9 g/dL (13.5-17.5); Immature Grans % 0.4; MCH 30.5 pg (27.0-33.0); MCHC 35.1 % (32.0-36.0); MCV 87 fL (80-95); MPV 8.4 fL (8.0-11.0); Monocytes % 16.2; Neutrophils % 57.7; Platelet Count 244 10^3/uL (130-400); RDW 15.8 % (11.8-14.1); RDW-SD 47.4 fL; WBC 4.45 10^3/uL (4.4-10.8)
[2023-10-11 08:53] LABS: ALT 25 U/L (16-63); AST 16 U/L (15-37); Albumin 2.9 g/dL (3.4-5.0); Alkaline Phosphatase 60 U/L (46-116); Anion Gap 8.6 mmol/L (3-11); BUN 15 mg/dL (7-18); Bilirubin, Total 0.3 mg/dL (0.2-1.0); CO2 26.4 mmol/L (21.0-32.0); CREATININE 1.1 mg/dL (0.70-1.30); Calcium 8.1 mg/dL (8.5-10.1); Chloride 103 mmol/L (98-107); Estimated GFR 71.32 (mL/min/1.73m2); Glucose 163 mg/dL (74-106); Potassium 3.5 mmol/L (3.5-5.1); Sodium 138 mmol/L (136-145); Total Protein 6.8 g/dL (6.4-8.2)
== END 2023-10-18 23:59 | disposition home or self-care (01) ==
LOC: INF 04:42
PROVIDERS: PCP Nurse Practitioner Family; Visit Provider Internal Medicine
DX: Z45.2 Encounter for adjustment and management of vascular access device (principal); C60.9 Malignant neoplasm of penis, unspecified
CPT/HCPCS: 36591; 80053; 96523; 85025

== ENCOUNTER 2024-06-04 17:24 | Outpatient (CLI) | payer MEDICARE, OTHER, SELFPAY ==
--- OUTSIDE RECORDS SUMMARY | 2024-06-04 17:27 | XMS_ITS ---
[facility] [address] Care Team Providers Care Administrative Office Manager Name Role Phone Shannan Arellano GAYLE Primary Care Provider [phone] Active Problems Problem Noted Date Diagnosed Date Edema 10/06/2023 Surgical site infection 07/20/2023 Intra-abdominal fluid collection 07/19/2023 Penile cancer 06/24/2023 Cancer Staging:Pathologic:Stage IV(pT2, pN3, cM0) - Signed by Rolly Peters MD on 07/22/2023 Current Oncology Plans [facility] ONC -BLADDER CANCER - mitoMYcin / FLUOROURACIL / XRT* Plan Start Date:09/06/2023 Plan Provider:Olivier Obrien MD Linked Problems Penile cancer Treatment Medications fluorouraciL (AdruciL) in so dium chloride 0.9% 360 mL infusion (5 Day - For Home Use)mitoMYcin (Mutamycin)Pump Disconnect: Home Infusion Past Plans No past plan information found. Radiation Treatments * No radiation treatments are documented for this patient in [facility]. Treatments may have been administered in another system.
--- OUTSIDE RECORDS SUMMARY | 2024-06-04 17:27 | XMS_ITS | Encounter Summary ---
Author Organization [facility] Address [facility] [address] Care Team Providers Care Data Processing Manager Name Role Phone Shannan Arellano APRN Primary Care Provider Encounter Details Date Type Department Care Team (Latest Contact Info) Description 05/03/2024 Travel Social History Tobacco Use Types Packs/Day Years Used Date Smoking Tobacco: Never Smokeless Tobacco: Never Alcohol Use Standard Drinks/Week Comments Yes 1 (1 standard drink = 0.6 oz pur e alcohol) [facility] Utilities Answer Date Recorded In the past 12 months has th e electric, gas, oil, or water [employer] threatened to shut off services in your home? No 07/28/2023 Overall Financial Resource Strain (CARDIA) Answe r Date Recorded How hard is it for you to pa y for the very basics like food, housing, medical care, and heating? Not hard at all 07/28/2023 Hunger Vital Sign Answer Date Recorded Worried About Running Out of Food in the Last Ye ar Not on file 07/28/2023 Within the past 12 months, t he food you bought just didn't last and you didn't have money to get more. Never true 07/28/2023 PRAPARE - Transportation Answer Date Re corded In the past 12 months, has l ack of transportation kept you from medical appointments or from getting medications? No 01/2024 In the past 12 months, has l ack of transportation kept you from meetings, work, or from getting things needed for daily living? No 07/28/2023 Housing Stability Vital Sign Answer Mina e Recorded In the last 12 months, was t here a time when you were not able to pay the mortgage or rent on time? No 07/28/2023 In the last 12 months, how many places have you lived? 1 07/28/2023 In the last 12 months, was t here a time when you did not have a steady place to sleep or slept in a custodial (including now)? No 07/28/2023 IPV Inpatient Questions Answer Date Recorded Does Anyone Try to Keep You From Having Contact with Others or Doing Things Outside Your Home? unable to answer (comment required) 06/24/2023 Feels Threatened by Someone unable to an swer (comment required) 06/24/2023 Feels Unsafe at Home or Work/School unab le to answer (comment required) 06/24/2023 Physical Signs of Abuse Present no 06/24/2023 Sex and Gender Information Value Date Recorded Sex Assigned at Not on file Gender Identity Not on file Sexual Orientation Not on file documented as of this encounter Plan of Treatment Upcoming Encounters Date Type Department Care Team (Late st Contact Info) Description 06/07/2024 1:00 PM EST TH Visit (TeleHealth) [place] [address] Zachary Garcia MD [facility] [place] [address] 06/11/2024 9:00 AM EST Office Visit [place] [address] EspinozaTia de la torreyl E, OT 07/10/2024 8:00 AM EST Office Visit [place] [address] Espinoza, Caroline E, OT 07/24/2024 10:00 AM EST Office Visit [place] [address] Espinoza, Caroline E, OT 08/07/2024 10:00 AM EST Office Visit [place] [address] Espinoza, Caroline E, OT 08/21/2024 10:00 AM EST Office Visit [place] [address] Caroline Espinoza, OT documented as of this encounter Visit Diagnoses Not on filedocumented in this encounter Care Teams Data Processing Manager Relationship Specialty Start Date End Date Shannan Arellano, [place] [address] PCP - General Family Medicine 02/03/23 documented as of this encounter
--- OUTSIDE RECORDS SUMMARY | 2024-06-04 17:27 | XMS_ITS | Encounter Summary ---
Author Organization [facility] Address [facility] [address] Care Team Providers Care Rhythmic Gymnastics Coach Name Role Phone Shannan Arellaon APRN Primary Care Provider Encounter Details Date Type Department Care Team (Latest Contact Info) Description 04/03/2024 Travel Social History Tobacco Use Types Packs/Day Years Used Date Smoking Tobacco: Never Smokeless Tobacco: Never Alcohol Use Standard Drinks/Week Comments Yes 1 (1 standard drink = 0.6 oz pur e alcohol) [facility] Utilities Answer Date Recorded In the past 12 months has th e electric, gas, oil, or water [employer] threatened to shut off services in your [...] place to sleep or slept in a intermediate (including now)? No 07/28/2023 IPV Inpatient Questions [...] PM EST TH Visit (TeleHealth) [place] [address] Zachary Garcia MD [facility] [place] [address] 06/11/2024 9:00 AM EST Office Visit [place] [address] EspinozaTia de la torreyl E, OT 07/10/2024 8:00 AM EST Office Visit [place] [address] Espinoza, Caroline E, OT 07/24/2024 10:00 AM EST Office Visit [place] [address] Espinoza, Caroline E, OT 08/07/2024 10:00 AM EST Office Visit [place] [address] Espinoza, Caroline E, OT 08/21/2024 10:00 AM EST Office Visit [place] [address] Caroline Espinoza, OT documented as of this encounter Visit Diagnoses Not on filedocumented in this encounter Care Teams Rhythmic Gymnastics Coach Relationship Specialty Start Date End Date Shannan Arellano, BOW MAKER [place] [address] PCP - General Family Medicine 02/03/23 documented as of this encounter
--- OUTSIDE RECORDS SUMMARY | 2024-06-04 17:27 | XMS_ITS | Encounter Summary ---
Author Organization [facility] [place] [address] Care Team Providers Care Supervisor Forming And Tempering Name Role Phone Shannan Arellano GAYLE Primary Care Provider [phone] Reason for Referral * Physical Therapy (Routine) - Authorized Specialty Diagnoses / Procedures Referred By Marry kelsey Referred To Contact Physical Therapy Diagnoses History of penile cancer Lymphedema of both lower extremities Zachary Garcia MD [facility] [place] [address] [facility] [place] [address] Referral ID Status Reason Start Date Expiration Date Visits Requested Visits Authorized [id number] Authorized Evaluate and Treat 05/29/2024 05/29/2025 100 100 Encounter Details Date Type Department Care Team (Late Contact Info) Description 05/29/2024 [place] [address] Zo Arboleda, RN Social History Tobacco Use Types Packs/Day Years Used Date Smoking Tobacco: Never Smokeless Tobacco: Never Alcohol Use Standard Drinks/Week Comments Yes 1 (1 standard drink = 0.6 oz pur e alcohol) [facility] Utilities Answer Date Recorded In the past 12 months has th e electric, gas, oil, or water company threatened to shut off services in your [...] place to sleep or slept in a care home (including now)? No 07/28/2023 DH IPV Inpatient Questions Answer Date Recorded Does [...] on file documented as of this encounter Miscellaneous Notes * Telephone Encounter - Zo Arboleda RN - 05/29/2024 11:29 AM EST Copied from [facility] #[id number]. Topic: Specialty Dept CRMs - Generic Call >> May 29, 2024 11:26 AM September R wrote: Specialist: Radha Relationship (if other than patient-full name): Janiya [facility] rehab Reason for Call: Janiya states that they need a new referral from the provider as previous one is going to . documented in this encounter Plan of Treatment Upcoming Encounters Date Type Department Care Team (Late st Contact Info) Description 06/07/2024 1:00 PM EST TH Visit (TeleHealth) [place] [address] Zachary Garcia MD [facility] [place] [address] 06/11/2024 9:00 AM EST Office [place] [address] Espinoza, Caroline E, OT 07/10/2024 8:00 AM EST Office [place] [address] Espinoza, Caroline E, OT 07/24/2024 10:00 AM EST Office [place] [address] Espinoza, Caroline E, OT 08/07/2024 10:00 AM EST Office [place] [address] Espinoza, Caroline E, OT 08/21/2024 10:00 AM EST Office [place] [address] Espinoza, Caroline E, OT Scheduled Referrals Name Type Priority Associated Diagnoses Orde r Schedule Referral to Physical Therapy Outpatient Referral Routine History of penile cancer Lymphedema of both lower extremities Ordered: 05/29/2024 documented as of this encounter Visit Diagnoses Diagnosis History of penile cancer Lymphedema of both lower extremities documented in this encounter Care Teams Supervisor Forming And Tempering Relationship Specialty Start Date End Date Shannan Arellano APRN Gu[place] [address] PCP - General Family Medicine 02/03/23 documented as of this encounter
--- OUTSIDE RECORDS SUMMARY | 2024-06-04 17:27 | XMS_ITS | Encounter Summary ---
Author Organization [facility] Address [facility] [address] Care Team Providers Care Emergency Management System Director Name Role Phone Shannan Arellano GAYLE Primary Care Provider [phone] Encounter Details Date Type Department Care Team (Late st Contact Info) Description 06/04/2024 Telephone [place] [address] Zo Arboleda RN Social History Tobacco Use Types Packs/Day Years Used Date Smoking Tobacco: Never Smokeless Tobacco: Never Alcohol Use Standard Drinks/Week Comments Yes 1 (1 standard drink = 0.6 oz pur e alcohol) [facility] Utilities Answer Date Recorded In the past [...] place to sleep or slept in a long-term (including now)? No 07/28/2023 DH IPV Inpatient [...] on file documented as of this encounter Progress Notes * Zo Arboleda RN - 06/04/2024 10:28 AM EST Call returned to patient and Sylvie, reviewed upcoming appointment times. Lab work not completed, pt will go to [facility] today, requested results be faxed back [facility] for upcomingappointment. documented in this encounter Miscellaneous Notes * Telephone Encounter - Zo Arboleda RN - 06/04/2024 10:23 AM EST Copied from [facility] #[id number]. Topic: Specialty Dept CRMs - Generic Call >> May 31, 2024 1:06 PM Sarah Navarro wrote: Specialist: Radha Relationship (if other than patient-full name): Sylvie ([place] on file) Reason for Call: Sylvie calling, says patient has a phone call with Dr. Garcia to discuss PET scan results on 06/07. Sylvie is wondering if this is necessary as patient is seeing Dr. Garcia on 07/02/24. Sylvie says if she doesn't answer you can leave a detailed message just letting her know that Dr. Garcia would like to speak to them on 06/07 or if it will be cancelled and they will see him on 07/02. Can you please advise? documented in this encounter Plan of Treatment Upcoming Encounters Date Type Department Care Team (Daniela st Contact Info) Description 06/07/2024 1:00 PM EST TH Visit (TeleHealth) [place] [address] Zachary Garcia MD [facility] [place] [address] 06/11/2024 9:00 AM EST Office Visit [place] [address] Espinoza, Caroline E, OT 07/10/2024 8:00 AM EST Office Visit [place] [address] Espinoza, Caroline E, OT 07/24/2024 10:00 AM EST Office Visit [place] [address] Espinoza, Caroline E, OT 08/07/2024 10:00 AM EST Office Visit [place] [address] Espinoza, Caroline E, OT 08/21/2024 10:00 AM EST Office Visit [place] [address] Espinoza, Caroline E, OT documented as of this encounter Visit Diagnoses Not on filedocumented in this encounter Care Teams Emergency Management System Director Relationship Specialty Start Date End Date Shannan Arellano, ASSISTANT WOMENS VOLLEYBALL COACH [place] [address] PCP - General Family Medicine 02/03/23 documented as of this encounter
--- OUTSIDE RECORDS SUMMARY | 2024-06-04 17:27 | XMS_ITS | Encounter Summary ---
Author Organization [facility] Address [facility] [address] Care Team Providers Care Window Systems Administrator Name Role Phone Shannan Arellano APRN Primary Care Provider [phone] Encounter Details Date Type Department Care Team (Latest Contact Info) Description 05/29/2024 Travel Social History Tobacco Use Types Packs/Day Years Used Date Smoking Tobacco: Never Smokeless Tobacco: Never Alcohol Use Standard Drinks/Week Comments Yes 1 (1 standard drink = 0.6 oz pur e alcohol) [facility] Utilities Answer Date Recorded In the past 12 months has th e electric, gas, oil, or water [employer] threatened to shut off services in your [...] place to sleep or slept in a senior care (including now)? No 07/28/2023 IPV Inpatient Questions [...] PM EST TH Visit (TeleHealth) [place] [address] Zachary Garcia MD [facility] [place] [address] 06/11/2024 9:00 AM EST Office [place] [address] EspinozaTia de la torreyl E, OT 07/10/2024 8:00 AM EST Office [place] [address] Espinoza, Caroline E, OT 07/24/2024 10:00 AM EST Office [place] [address] Espinoza, Caroline E, OT 08/07/2024 10:00 AM EST Office [place] [address] Espinoza, Caroline E, OT 08/21/2024 10:00 AM EST Office [place] [address] Caroline Espinoza, OT documented as of this encounter Visit Diagnoses Not on filedocumented in this encounter Care Teams Window Systems Administrator Relationship Specialty Start Date End Date Shannan Arellano, [place] [address] PCP - General Family Medicine 02/03/23 documented as of this encounter
--- OUTSIDE RECORDS SUMMARY | 2024-06-04 17:27 | XMS_ITS | Encounter Summary ---
Author Organization [facility] Address [facility] [address] Care Team Providers Care Television Agent Name Role Phone Shannan Arellano APRN Primary Care Provider [phone] Encounter Details Date Type Department Care Team (Latest Contact Info) Description 04/19/2024 Travel Social History Tobacco Use Types Packs/Day Years Used Date Smoking Tobacco: Never Smokeless Tobacco: Never Alcohol Use Standard Drinks/Week Comments Yes 1 (1 standard drink = 0.6 oz pur e alcohol) [facility] Utilities Answer Date Recorded In the past 12 months has th e electric, gas, oil, or water [employer] threatened to shut off services in your [...] place to sleep or slept in a nursing home (including now)? No 07/28/2023 IPV Inpatient Questions [...] PM EST TH Visit (TeleHealth) [place] [address] Zachary Garcia MD [facility] [place] [address] 06/11/2024 9:00 AM EST Office [place] [address] EspinozaTia de la torreyl E, OT 07/10/2024 8:00 AM EST Office [place] [address] Espinoza, Caroline E, OT 07/24/2024 10:00 AM EST Office [place] [address] Espinoza, Caroline E, OT 08/07/2024 10:00 AM EST Office [place] [address] Espinoza, Caroline E, OT 08/21/2024 10:00 AM EST Office [place] [address] Caroline Espinoza, OT documented as of this encounter Visit Diagnoses Not on filedocumented in this encounter Care Teams Television Agent Relationship Specialty Start Date End Date Shannan Arellano, FACULTY I ON CALL MEDICAL [place] [address] PCP - General Family Medicine 02/03/23 documented as of this encounter
--- OUTSIDE RECORDS SUMMARY | 2024-06-04 17:27 | XMS_ITS | Encounter Summary ---
Author Organization [facility] Address [facility] [address] Care Team Providers Care Atmospheric Drier Tender Name Role Phone Shannan Arellano APRN Primary Care Provider [phone] Encounter Details Date Type Department Care Team (Latest Contact Info) Description 06/01/2024 Travel Social History Tobacco Use Types Packs/Day Years Used Date Smoking Tobacco: Never Smokeless Tobacco: Never Alcohol Use Standard Drinks/Week Comments Yes 1 (1 standard drink = 0.6 oz pur e alcohol) [facility] Utilities Answer Date Recorded In the past 12 months has th e electric, gas, oil, or water [employer] threatened to shut off services in your [...] place to sleep or slept in a halfway (including now)? No 07/28/2023 IPV Inpatient Questions [...] PM EST TH Visit (TeleHealth) [place] [address] Zachary Garcia MD [facility] [place] [address] 06/11/2024 9:00 AM EST Office Visit [place] [address] EspinozaTia de la torreyl E, OT 07/10/2024 8:00 AM EST Office [place] [address] Espinoza, Caroline E, OT 07/24/2024 10:00 AM EST Office Visit [place] [address] Espinoza, Caroline E, OT 08/07/2024 10:00 AM EST Office Visit [place] [address] Espinoza, Caroline E, OT 08/21/2024 10:00 AM EST Office Visit [place] [address] Caroline Espinoza, OT documented as of this encounter Visit Diagnoses Not on filedocumented in this encounter Care Teams Atmospheric Drier Tender Relationship Specialty Start Date End Date Shannan Arellano, [place] [address] PCP - General Family Medicine 02/03/23 documented as of this encounter
--- OUTSIDE RECORDS SUMMARY | 2024-06-04 17:27 | XMS_ITS | Encounter Summary ---
Author Organization [facility] [place] [address] Care Team Providers Care Short Haul Driver Name Role Phone Shannan Arellano GAYLE Primary Care Provider [phone] Reason for Referral * Diagnostic Test (Routine) - Closed Specialty Diagnoses / Procedures Referred By Contac t Referred To Contact Radiology Diagnoses Penis cancer Procedures NM PET CT Skull Base to Mid-thigh Zachary Garcia MD [facility] [place] [address] [place] [address] Referral ID Status Reason Start Date Expiration Date V isits Requested Visits Authorized [id number] Closed Specialty Service Requested 03/16/2024 09/13/2025 1 1 Reason for Visit * Diagnostic Test (Routine) - Closed Specialty Diagnoses / Procedures Referred By Contac t Referred To Contact Radiology Diagnoses Penis cancer Procedures NM PET CT Skull Base to Mid-thigh Zachary Garcia MD [facility] [place] [address] [place] [address] Referral ID Status Reason Start Date Expiration Date V isits Requested Visits Authorized [id number] Closed Specialty Service Requested 03/16/2024 09/13/2025 1 1 Encounter Details Date Type Department Care Team (Latest Contact Info) Description 06/01/2024 9:47 AM EST - 06/01/2024 11:59 PM EST Hospital Encounter Nuclear Medicine at [facility] [place] [address] Zachary Garcia MD [facility] [address] Penis cancer Discharge Disposition: Home Social History Tobacco Use Types Packs/Day Years Used Date Smoking Tobacco: Never Smokeless Tobacco: Never Alcohol Use Standard Drinks/Week Comments Yes 1 (1 standard drink = 0.6 oz pur e alcohol) [facility] Utilities Answer Date Recorded In the past [...] place to sleep or slept in a [facility] (including now)? No 07/28/2023 DH IPV Inpatient [...] on file documented as of this encounter Medications at Time of Discharge Medication Sig Dispensed Refills Start Date End Date tamsulosin (Flomax) 0.4 mg capsule Take 1 capsule by mouth nightly. 30 tablet 11/04/2023 silver sulfADIAZINE (Silvadene) 1 % Cream Apply topically daily. 400 g 10/14/2023 simethicone (Gas-X Chew) 80 mg chewable tablet Take 80 mg by mouth every 6 hours as needed for Flatulence. guaiFENesin (Robitussin) 20 mg/mL Liquid Take 200 mg by mouth 3 times daily as needed for Cough. ondansetron ODT (Zofran-ODT) 8 mg disintegrating tablet Take 1 tablet by mouth every 8 hours as needed for Nausea. Put the tablet under your tongue and it will dissolve. 30 tablet 10/07/2023 Psyllium Seed-Sucrose (0) Powder Take by mouth. loperamide (IMODIUM A-D) 2 mg Tablet Take by mouth 4 times daily as needed for Diarrhea. Maximum 16 mg in 24 hours lidocaine-prilocaine (EMLA) CreamIndications:Penile cancer Apply topically as needed. 30 g 1 09/05/2023 prochlorperazine (Compazine) 10 mg tabletIndications:Penile cancer Take 1 tablet by mouth every 6 hours as needed for Nausea. 30 tablet 3 08/16/2023 acetaminophen (Tylenol) 325 mg tablet Take 650 mg by mouth as needed for Pain. Maybe once a week famotidine (Pepcid) 40 mg tablet Take 40 mg by mouth. 07/27/2023 fluticasone propionate (Flonase) 50 mcg/actuation Parnell, Suspension by Each Nare route daily. 07/27/2023 oxyCODONE (Roxicodone) 5 mg tablet Take 1 tablet by mouth every 4 hours as needed for Pain (for severe pain not controlled by tylenol/ibuprofen). 5 tablet 06/26/2023 documented as of this encounter Plan of Treatment Upcoming Encounters Date Type Department Care Team (Late st Contact Info) Description 06/07/2024 1:00 PM EST TH Visit (TeleHealth) [place] [address] Zachary Garcia MD [facility] [address] 06/11/2024 9:00 AM EST Office [place] [address] Espinoza, Caroline E, OT 07/10/2024 8:00 AM EST Office [place] [address] Espinoza, Caroline E, OT 07/24/2024 10:00 AM EST Office [place] [address] Espinoza, Caroline E, OT 08/07/2024 10:00 AM EST Office [place] [address] Espinoza, Caroline E, OT 08/21/2024 10:00 AM EST Office [place] [address] Espinoza, Caroline E, OT documented as of this encounter Procedures Procedure Name Priority Date/Time Associated Diagnosis Comments NM PET CT SKULL BASE TO MID-THIGH ([facility]) Routine 06/01/2024 11:05 AM EST Penis cancer documented in this encounter Results * NM PET CT Skull Base to Mid-thigh (06/01/2024 11:05 AM EST) WORKSTATION ID [id number] RAD Anatomical Region Laterality Modality Positron Emissio n Tomography (PET) Impressions 06/04/2024 4:10 PM EST No evidence of tumor recurrence or metastasis. I have personally reviewed the image(s) and the resident's interpretation and agree with the findings, Alfredo Everett MD at 06/04/2024 4:10 PM Thank you for letting us participate in the care of this patient. ??If you are a health care provider and have any questions regarding this report, please contact the number below. ??For patients who have questions please contact the health vehicle care specialist that requested your imaging first. ? 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 The noncontrast CT was used for anatomic localization and photon attenuation correction of the PET scan. Blood glucose level: 97 (mg/dL) FDG dose: 7.2 mCi COMPARISON: PET/CT 01/11/2024 FINDINGS: HEAD/NECK: Normal activity in all soft tissue regions of the neck and visualized lower head. No adenopathy. CHEST: Normal activity in all soft tissue regions. No adenopathy and no suspicious pulmonary nodule. Aortic annular calcifications. ABDOMEN/PELVIS: Normal activity in all soft tissue regions. No adenopathy. Postsurgical change in the left inguinal region. Stable right lower pole simple renal cyst. Stable small left hydrocele. Diffuse subcutaneous edema in the left lower pelvis and visualized left lower extremity SKELETON/EXTREMITIES: Decreased marrow activity in the lower lumbar spine and pelvis is consistent with post radiation change. No suspicious osseous lesion. Procedure Note Ashdown, Alfredo A, MD - 06/04/2024 EXAMINATION: NM PET CT STANDARD SKULL BASE TO MID-THIGH CLINICAL HISTORY: Hx of Node positive penile cancer sp node dissection andXRT C60.9, Malignant neoplasm of penis, unspecified TECHNIQUE: Following IV injection of 91-htysnm-1-deoxyglucose (FDG) astandard uptake of approximately 60 minutes, a noncontrast CT scan followed by aPET scan were acquired from the base of the skull to mid thighs. The noncontrast CTwas used for anatomic localization and photon attenuation correction of thePET scan. Blood glucose level: 97 (mg/dL) FDG dose: 7.2 mCi COMPARISON: PET/CT 01/11/2024 FINDINGS: HEAD/NECK: Normal activity in all soft tissue regions of the neck and visualizedlower head. No adenopathy. CHEST: Normal activity in all soft tissue regions. No adenopathy and nosuspicious pulmonary nodule. Aortic annular calcifications. ABDOMEN/PELVIS: Normal activity in all soft tissue regions. No adenopathy. Postsurgical change in the left inguinal region. Stable right lower pole simple renal cyst. Stable small left hydrocele. Diffuse subcutaneous edema in the left lower pelvis and visualized leftlower extremity SKELETON/EXTREMITIES: Decreased marrow activity in the lower lumbar spine and pelvis isconsistent with post radiation change. No suspicious osseous lesion. IMPRESSION No evidence of tumor recurrence or metastasis. I have personally reviewed the image(s) and the resident's interpretationand agree with the findings, Alfredo Everett MD at 06/04/2024 4:10 PM Thank you for letting us participate in the care of this patient. If youare a health care provider and have any questions regarding this report,please contact the number below. For patients who have questions please contactthe health vehicle care specialist that requested your imaging first. Zachary Garcia MD IMG PET ORDERABLES documented in this encounter Visit Diagnoses Diagnosis Penis cancer Malignant neoplasm of penis, part unspecified documented in this encounter Administered Medications Inactive Administered Medications - up to 3 most recent administrations Medication Order MAR Action Action Date Dose Rate Site fludeoxyglucose (F-18) FDG injection 0-20 mCi 0-20 mCi, Intravenous, ONCE PRN, 1 dose, Starting on Tue06/01/24 at 1004, Until Tue06/01/24 at 0958, Per Protocol, Radiology Contrast, Routine Given 06/01/2024 9:58 AM EST 7.2 mCi Right Arm documented in this encounter Care Teams Short Haul Driver Relationship Specialty Start Date End Date Shannan Arellano, NIB INSPECTOR [facility] [address] [facility] [address] PCP - General Family Medicine 02/03/23 documented as of this encounter
--- OUTSIDE RECORDS SUMMARY | 2024-06-04 17:27 | XMS_ITS | Encounter Summary ---
Author Organization [facility] Address [facility] [address] Care Team Providers Care Dry Clipper Tender Name Role Phone Shannan Arellano APRN Primary Care Provider [phone] Encounter Details Date Type Department Care Team (Late st Contact Info) Description 04/30/2024 Telephone [place] [phone] Kristel Mendoza Social History Tobacco Use Types Packs/Day Years Used Date Smoking Tobacco: Never Smokeless Tobacco: Never Alcohol Use Standard Drinks/Week Comments Yes 1 (1 standard drink = 0.6 oz pur e alcohol) [facility] Utilities Answer Date Recorded In the [...] place to sleep or slept in a fpc (including now)? No 07/28/2023 IPV Inpatient Questions [...] encounter Miscellaneous Notes * Telephone Encounter - Kristel Mendoza - 04/30/2024 10:05 AM EST Eduardo Contreras [id number] Diagnosis/Indication: screening Please review patient chart to confirm if previous Endoscopy procedure was performed within system. If yes, take note of Anesthesia type used. If previous procedure found, and with MAC/propofol Anesthesia support was used, schedule this procedure with Anesthesia and skip the Anesthesia portion of questions. If not performed within system, not performed at all, or performed with IVCS, ask Anesthesia questions. SCHEDULING QUESTIONS (ask all patient these questions) Have you ever had a/an Colonoscopy before? Yes: Date 5 yrs [facility] If yes, did you have any problems with the procedure (such as waking up during the procedure, pain or difficulties afterwards, etc.)? No What type of sedation was used: IV Conscious Sedation (ASK ONLY FOR COLONOSCOPY PROCEDURES) Are you aware, or have you ever been told that you had a poor prep or failed prep with a previous colonoscopy? No If yes, assign the Extended MiraLAX Prep (ASK ONLY FOR COLONOSCOPY PROCEDURES) Do you have an ongoing history of constipation? (E.g., hard stools, >2 days without a bowel movement, straining or difficulty passing stool) No If yes, assign the Extended MiraLAX Prep Do you take any blood thinners or have you been diagnosed with a bleeding disorder that increases your risk of bleeding with procedures? No Do you have a Pacemaker or Defibrillator device? If yes, send pool message to Cardiology with patient information and date or procedure. No Do you have diabetes? If yes, call PCP/managing provider to discuss use of prep and any questions or concerns related to. No If yes, assign the Extended MiraLAX Prep Do you take any iron supplements or vitamins that contain iron? No Do you take a GLP-1 medication for diabetes and/or weight loss? All patients who say yes, regardless of procedure, must be on clear liquids day prior to procedure. If patient answers yes, you must note which medication and instruct to hold the medication prior to procedure for one dose. Brand names include Wegovy, Ozempic, Trulicity, Mounjaro, Zepbound, Rynelsus, Saxenda, Victoza, Byetta, Bydureon, Soliqua, Xultophy No Do you have a preference regarding the gender of your provider? No ANESTHESIA QUESTIONS (YES to any question, please book with Anesthesia support) Have you ever been diagnosed with Pulmonary Hypertension and/or Congential Heart Disease? No Have you been diagnosed with A-Fib (atrial fibrillation) that is NOT being well controled with medications? No Have you ever had an allergic or adverse reaction to Fentanyl or Versed? No Have you had a problem with sedation or anesthesia? (Waking up during procedure, extreme confusion after, etc.) No Do you have a diagnosis of Obstructive Sleep Apnea that requires the use of a c- pap machine? No Do you use an oxygen tank at home? No Do you use a rescue inhaler more than twice per day? (COPD, severe asthma) No Do you experience breathing problems when you lay flat for a period of time? No Do you regularly take prescription opioid pain medications on a daily basis? (Includes oxycodone, Percocet, Suboxone, methadone, etc.) No If yes, assign the Extended MiraLAX Prep SCHEDULING CONFIRMATIONS: Please note any and all parts of your conversation with the patient here. We offer all new patients an opportunity to have an appointment with one of our associate care providers to learn more about your upcoming procedure, ask questions and get answers. These appointmentsare offered via telehealth. Would you be interested in scheduling this appointment? (Only ask if NEW referral patient; skip this question if GI provider ordered the procedure.) No Is there any other information or concerns you would like to us to share with your care team in relation to your upcoming scheduled procedure? No You must have a responsible constitution party who will drive you to your procedure, stay on campus for the entire duration of your procedure, and drive you home from your procedure. Who will likely be your lyft driver for the procedure? *Please Verify the height and weight, and adjust if height and/or weight have changed* Estimated body mass index is 24.96 kg/m?? as calculated from the following: Height as of 11/18/23: 172.2 cm (5' 7.8). Weight as of 11/18/23: 74 kg (163 lb 3.2 oz). Age:73 y.o. documented in this encounter Plan of Treatment Upcoming Encounters Date Type Department Care Team (Late st Contact Info) Description 06/07/2024 1:00 PM EST TH Visit (TeleHealth) [place] [address] Zachary Garcia MD [facility] [place] [address] 06/11/2024 9:00 AM EST Office [place] [address] Caroline Espinoza, OT 07/10/2024 8:00 AM EST Office [place] [address] Caroline Espinoza, OT 07/24/2024 10:00 AM EST Office [place] [address] Caroline Espinoza, OT 08/07/2024 10:00 AM EST Office [place] [address] Caroline Espinoza, OT 08/21/2024 10:00 AM EST Office [place] [address] Caroline Espinoza, OT documented as of this encounter Visit Diagnoses Not on filedocumented in this encounter Care Teams Dry Clipper Tender Relationship Specialty Start Date End Date Shannan Arellano, ASSISTANT FACILITY MANAGER [address] [place] [address] PCP - General Family Medicine 02/03/23 documented as of this encounter
--- OUTSIDE RECORDS SUMMARY | 2024-06-04 17:27 | XMS_ITS | Encounter Summary ---
Author Organization [facility] Address [facility] [address] Care Team Providers Care Commercial Census Taker Name Role Phone Shannan Arellano GAYLE Primary Care Provider [phone] Reason for Visit * Physical Therapy (Routine) - Authorized Specialty Diagnoses / Procedures Referred By Marry kelsey Referred To Contact Physical Therapy Diagnoses Penile cancer Zachary Garcia MD [facility] [place] [address] [facility] [place] [address] Referral ID Status Reason Start Date Expiration Date Visits Requested Visits Authorized [id number] Authorized Evaluate and Treat 05/17/2023 06/15/2024 100 100 Encounter Details Date Type Department Care Team (Late st Contact Info) Description 04/19/2024 9:00 AM EDT Office [place] [address] Caroline Espinoza, OT Lymphedema; 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 No 07/28/2023 DH IPV Inpatient [...] as of this encounter Miscellaneous Notes * Treatment - Therapy - Caroline Espinoza OT - 04/19/2024 9:00 AM EDTSummary: OT/CLT LE LYMPHEDEMA TREATMENT NOTE OT/CLT LE LYMPHEDEMA TREATMENT NOTE Date of Exam/First treatment: 05/31/23 Date of Onset 03/18/23 Referring Provider: Zachary Garcia MD Diagnosis and pertinent co-morbidities: Penile CA Primary Insurance: Payor: MEDICARE / Plan: MEDICARE PART A & B / Product Type: *No Product type* / Medicare Cert Period: 05/31/23- 08/29/23 08/29/33-11/28/23 11/29/23- 02/27/24 02/28/24- 06/26/24 CURRENT HISTORY: Eduardo Contreras is a 73 y.o. male with h/o penile CA. Referred by DR. Garcia. Patient presented initially with swelling/lymphedema with s/p CA and node resection. 06/30/23 local excision of distal urethra with hypospadiac meatus, bilateral groin dissection. MRI with suspicious LEFT inguinal lymph nodes. Cystoscopy and biopsy on 05/09/23 Surgery on 06/24/22 for inguinal lymph node dissection and penile tumor resection. 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 Lymphedema and scarring Patient has been receiving therapy with CLT since 05/31/23 . Patient has been consistent daily withcompression wear, elevation, dietary changes, MLD and adjunct fluid management techniques . He continues to have difficulty with lymphedema control particularly with his pelvic, truncal and scrotal areas as well as bilateral LE L>R. He would at this point benefit from sequential compression pumps for B LE and pelvis/trunk. Pending with [facility] for follow through. He avinash require advanced pump secondary to pelvic, trunk and abdominal lymphedema. He has been utilizing basic pump for approximately 2 weeks. Noted improvement in leg girth however continues with truncal and pelvic lymphedema. He has been consistent with scrotal pad, compression wear, elevation and MLD daily. He continues to have difficulty with control of his pelvic and truncal lymphedema with significant pelvic fibrosis. Hyperpigmentation in inguinal and pubis s/p radiation treatment. Patient would benefit from ADVANCED sequential compression pumps to address his pelvic and truncal lymphedema. PRECAUTIONS: activity as tolerated SOCIAL SUPPORTS: Patient lives with spouse, Kate, 6 children 30 years. Does not smoke. Anddrinks rarely ENVIRONMENT: I at home with out DME PATIENT STATED GOAL: I want to get back to work and doing what I like to do. CURRENT ACTIVITY LEVEL: Active lifestyle and work. 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 PAIN: Occasional knee and back pain from OA reported. No c.o pain. FUNCTIONAL LIMITATIONS: On a difficulty scale with 0 being unable to perform an activity, and 10 being able to perform at a pre injury/occurance level 10/10 HAND DOMINANCE: Patient is R hand dominant. CLINICAL FINDINGS: 1) GENERAL OBSERVATION Thin healthy male. Good postural and neck control and AROM noted. Both UE and LE 2) STRENGTH:WNL 3) SKIN/PALPATION: H/O CELLULITIS Mod/max fibrotic changes. Hyperpigmentation from radiation. NO hyperplasia, hyperkeratosis, or papillomas noted Mod/max fibrotic tissue changes noted groin, pelvis, lower abdomen and upper thigh L>R LE. R LE often having lymphedema through to ankle.Continues with scrotal lymphedema though this has been better. Reviewed S/S of cellulitis. Patient and spouse keeping an eye on. Verbalize understanding to contact PCP or ED if increase in redness/swelling/heat Continues with scrotal edema and edema above pubic bone into lower abdomen. Continues daily wearingof compression long shorts or capris with thigh high L LE with scrotal swell pack . Lymphedema continues to persist. 5) LE circumferences (cm) Right 05/31/23 Left 05/31/23 RIGHT 08/16/23 Left 08/16/23 RIGHT 11/22/23 Left 11/22/23 Right 02/21/24 LEFT 02/21/24 RIGHT 03/20/24 LEFT 03/20/24 LEFT 04/03/24 Right 04/19/24 Left 04/19/24 Mid foot 22.8 23.2 22.5 23.6 22.5 23.5 23 25 22 22.9 23.6 22.3 23.6 Ankle 25.4 24 24 24.1 22.6 26 23.9 27.5 22.1 23.8 24.6 21.4 23.2 Calf 33 35.3 31.7 34.8 35.5 34.6 32 35.5 29.5 35.7 37.5 30.5 34.6 D 32.3 31.8 33.5 33 32.5 33.2 33 35.4 32 34.2 35.2 32 34.9 Knee 35.7 35.5 36.8 37.2 36.2 38.4 36.5 42.4 35.6 37.6 38.6 35.4 38.7 Knee +12 45.3 46.8 46.7 47 46.5 49.7 47 49.6 45.6 51.4 55 45.5 46 Upper thigh G 55 53.4 51.2 52 51.7 54.2 52.7 58.2 50.7 57.8 57.5 51.1 56.2 A-D Length 38 A-G Length 75 Waist 87.5 86.5* Hips 95.2 94.2* * post MLD measurements. Patient continues with persistent lower abdomen, pelvis lymphedema even with follow through with all techniques taught. Lower abdomen and above pubic area continues firm and fluid filled. Responds positively to MLD sessions. Patient has procurred vibration plate for home use and is adding to his management routine. Utilizing Jobst 20-30 MMhG compression tights daily with scrotal pad. He finds these comfortable. He wears these most often. Utilizing scrotal pad to keep scrotal swelling down though encouraged to use with greater consistency. Usually using 5-6 days per week. Verbalizes understanding. Lower abdomen pubic lymphedema has been more persistent. Discussion today regarding utilzing swell pad on pubis if scrotal pad feels like too much. Patient verbalizes understanding. Scars are mobile and well healed CLINICAL EVALUATION AND DIAGNOSIS: Penile Ca with Inguinal node dissection and CA resection. Patient would benefit from skilled OT/CLT services to address MLD Education and training for self MLD as needed for lymphededema / scrotal edema compression wear including instruction on donning and doffing for post op edema management Education and training for adjunct fluid management as needed post op techniques which may include gu ayleen paddle, rolling, elevation, Education and training for edema management, lymphedema risk and risk reduction. Scar management techniques. SCD utilization indicated. IS currently using basic pump but would benefit from advanced pump to address truncal and pelvic lymphedema Clinical presentation: Stable Evolving Unstable X X Notes: The patient's rehabilitation potential is good for stated goals. GOALS: Therapy Short Term Goals 4 weeks Patient will be mod i with self MLD techniques including deep diaphragmatic breathing and deep abdominal lymph node drainage as indicated for fluid management 08/16/23 working on improving compliance 11/22/23 goal met 2. Patient will be I with donning/doffing appropriate compression wear for post op fluid management 08/16/23 MOD I goal met 3. Patient will demonstrate good understanding of risks of lymphedema given plans for inguinal noderemoval and possible post surgical radiation treatment. 08/16/23 goal met 4. Scar management 5. Patient will be I with utilization of adjunct fluid management techniques: Rolling. Muscle pump HEP. Elevation gu sha paddle. 08/16/23 ongoing. 11/22/23 6. SCD trial. [facility] Pending [facility] Goals 12 weeks 1. Patient will demonstrate ability to maintain reduction in swelling utilizing all techniques taught. 11/22/23 Patient continues to benefit from MLD every 4-6 weeks to clear out lymph fluid. THERAPEUTIC INTERVENTIONS UTILIZED TODAY: Review education and training for MLD sequence including deep diaphragmatic breathing and deep abdominal lymph node drainage. Full MLD sequence. Lymphedema responds well with increase in comfort reported by patient. Reviewed use of scrotal swell pack. Discussion today re: needs SCD for LE and pelvis/abdomen/truncal . Will work with [facility] for follow through. Education/training with gu sha paddle. Good return demo. Education and training for LE muscle pump HEP. Has written information. Excellent follow through. PLAN: OT/CLT SERVICES 2x/month x 3 months Adding or tapering visits as clinically indicated. Treatment: manual lymphatic drainage Exercise- muscle pump HEP teaching self care garment fitting- Bioflex Orly and Jobst compression shorts. With jobst tights. Patient alternates.Patient has scrotal swell packs/channel foam to minimize scrotal edema. Adjunct fluid management techniques SCD trial has been initiated. Looking to get advanced pump with pelvic and abdominal pump . Per Medicare guidelines he will need to first trial basic Entree pump for 4 weeks. Charges Minutes OT EVAL LOW (29707) OT EVAL MOD (50520) OT EVAL HIGH (27102) MANUAL THERAPY(82234) 45 SELF CARE/HOME MANAGEMENT (83972) THERAPEUTIC/FUNCTIONAL ACTIVITIES(44580) THEREX NEUROMUSCULAR BINA(67463) THEREX: STRENGTH ROM (35535) 15 Caroline Espinoza, OT/CLT ADVANCED PNEUMATIC COMPRESSION DEVICE (PCD) EVALUATION: DIAGNOSIS ASSESSMENT [x] Lymphedema, not elsewhere classified [I89.0] Secondary to: radiation and penile cancer resection [] Hereditary/Congenital lymphedema [Q82.0] [] Praecox [] Tarda [] Other: LOCATION OF LYMPHEDEMA [x] Right Leg [x] Left Leg [x] Pelvis/Genitals/Hips/Buttocks [x] Abdomen/Trunk [] Other: Date of onset, or duration: 05/31/23 SEVERITY Symptoms and observations from physical exam Stage of Lymphedema: []Stage II [x] Stage III []Other [] Hyperkeratosis [x] Hyperpigmentation [] Lymphorrhea (weeping) [] Papillomatosis (warts, nodules, papules) [] Elephantiasis [x] Fibrosis [x] Pitting edema [] Recurrent episode(s) of infection/cellulitis [] Pain [] Venous leg ulcers and/or wounds [x] Functional impairments to include limited range of motion or impaired mobility [x] Other, explain: decreased ROM with increased fluid Patient adhered to: Regular use of compression bandage system or compression garment(s)? [x] YES, compression garments with a minimum of 20-30 mmHg distally [] YES, compression bandage system Type: [] Multi-layer short stretch [] Velcro compression wrap(s) [] One-time use pre-packaged bandaging (i.e., Profore, Unna boot, Coban) [] Other: [] NO, explain: Regular exercise? [x] YES []NO If NO, explain: Limb elevation? [x] YES [] NO If NO, explain: Complete decongestive therapy (CDT) or lymphedema therapy? [x] YES [] NO If NO, explain: At least 30 minutes daily of MLD or self-MLD? [x] YES [] NO If NO, explain: Diet modifications? [x] YES [] NO Ongoing dietary concerns? [] YES [x] NO If YES, explain: Patient has used an E0651 basic PCD? [x] Yes (complete below questions) [] No Did complete trial with good results. Device make and model: entre basic Duration per extremity (hour): [x] 1 [] 2 [] Other: Frequency per day: [] 1x [x] 2x [] Other: Pressure level (mmHg): [x] 30 (low) [] 40 (med) [] 60 (high) Patient has been adherent in their use of an E0651 basic PCD, and I am recommending an E0652 advanced PCD for ongoing treatment of patient's lymphedema [x] Yes [] No If yes, was the E0651 basic PCD effective in managing the patient's lymphedema? [] Yes [x] No [] N/A Did the patient experience any barriers during use of the E0651 that would prevent them from adhering to the recommended treatment protocol(s)? [] Yes [x] No If YES, explain: What changes have occurred in the patient's condition? Describe symptoms that have persisted and/orevolved: persistent truncal, lower abdoinal and pelvic. lymphedema Why is the E0651 basic PCD unable to provide satisfactory treatment (check all that apply): [x] Lymphedema is extending beyond the treatment area of an E0651 treatment sleeve [] E0651 basic PCD exacerbated preexisting upper thigh, trunk/abdominal lymphedema [] Patient was unable to tolerate static pressure applied during the trial of the E0651 basic PCD due to a pre-existing condition or a condition being exacerbated: []Pain []Scarring []Contractures []Compromised skin integrity []Open ulcers/wounds [] The E0651 basic PCD did not control swelling or resulted in no significant clinical improvement Explain: MEASUREMENTS ; SEE MEASUREMENTS EMBEDDED ABOVE Choose at least two consecutive anatomical locations in addition to hip and waist. Right Leg Left Leg Ankle cm Ankle cm Calf cm Calf cm Knee cm Knee cm Thigh cm Thigh cm Suprapubic (Hip) cm Suprapubic (Hip) cm Umbilicus (Waist) cm Umbilicus (Waist) cm Other history and clinical information: documented in this encounter Plan of Treatment Upcoming Encounters Date Type Department Care Team (Late st Contact Info) Description 06/07/2024 1:00 PM EST TH Visit (TeleHealth) [place] [address] Zachary Garcia MD [facility] [place] [address] 06/11/2024 9:00 AM EST Office [place] [address] Caroline Espinoza OT 07/10/2024 8:00 AM EST [place] [address] Caroline Espinoza OT 07/24/2024 10:00 AM EST Office [place] [address] EspinozaCaroline de la torre E, OT 08/07/2024 10:00 AM EST Office [place] [address] EspinozaTia santiagoyl E, OT 08/21/2024 10:00 AM EST Office [place] [address] EspinozaTiayl E, OT documented as of this encounter Visit Diagnoses Diagnosis Lymphedema Other lymphedema 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
--- OUTSIDE RECORDS SUMMARY | 2024-06-04 17:27 | XMS_ITS | Encounter Summary ---
Author Organization [facility] Address [facility] [place] [address] Care Team Providers Care Membership Sales Representative Name Role Phone Shannan Arellano APRN Primary Care Provider [phone] Encounter Details Date Type Department Care Team (Latest Contact Info) Description 05/15/2024 9:36 AM EST - 05/15/2024 12:28 PM EST Hospital Encounter Gastroenterology at [facility] [place] [address] Regina Burns MD [facility] [place] [address] Discharge Disposition: Home Social History Tobacco Use Types Packs/Day Years Used Date Smoking Tobacco: Never Smokeless Tobacco: Never Alcohol Use Standard Drinks/Week Comments Yes 1 (1 standard drink = 0.6 oz pur e alcohol) [facility] Utilities Answer Date Recorded In the past 12 months has e electric, gas, oil, or water company [...] place to sleep or slept in a [place] [facility] [place] facility (including now)? No 07/28/2023 [facility] IPV Inpatient [...] on file documented as of this encounter Last Filed Vital Signs Vital Sign Reading Time Taken Comments Blood Pressure 93/68 05/15/2024 12:10 PM EST Pulse 54 05/15/2024 11:52 AM EST Temperature 36.3 ??C (97.3 ??F) 05/15/2024 10:[address] Respiratory Rate 16 05/15/2024 11:55 AM EST Oxygen Saturation 94% 05/15/2024 12:10 PM EST Inhaled Oxygen Concentration - - Weight 72.6 kg (160 lb) 05/15/2024 10:04 AM EST Height - - Body Mass Index 24.48 11/18/2023 12:30 PM EDT documented in this encounter Discharge Instructions * Discharge Instructions* Molly Rod RN - 05/15/2024 11:54 AM EST Colonoscopy: What to Expect at Home Your Recovery Your doctor will talk to you about when you will need your next colonoscopy. Your doctor can help you decide how often you need to be checked. This will depend on the results of your test and your risk for colorectal cancer. After the test, you may be bloated or have gas pains. You may need to pass gas. If a biopsy was done or a polyp was removed, you may have streaks of blood in your stool (feces) for a few days. Problems such as heavy rectal bleeding may not occur until several weeks after the test. This isn't common. But it can happen after polyps are removed. This care sheet gives you a general idea about how long it will take for you to recover. But each person recovers at a different pace. Follow the steps below to get better as quickly as possible. How can you care for yourself at home? Activity Rest when you feel tired. You can do your normal activities when it feels okay to do so. Diet Follow your doctor's directions for eating. Unless your doctor has told you not to, drink plenty of fluids. This helps to replace the fluids that were lost during the colon prep. Do not drink alcohol. Medicines Your doctor will tell you if and when you can restart your medicines. He or she will also give you instructions about taking any new medicines. If you take blood thinners, such as warfarin (Coumadin), clopidogrel (Plavix), or aspirin, be sure to talk to your doctor. He or she will tell you if and when to start taking those medicines again. Make sure that you understand exactly what your doctor wants you to do. If polyps were removed or a biopsy was done during the test, your doctor may tell you not to take aspirin or other anti-inflammatory medicines for a few days. These include ibuprofen (Advil, Motrin) and naproxen (Aleve). Other instructions For your safety, do not drive or operate machinery until the medicine wears off and you can think clearly. Your doctor may tell you not to drive or operate machinery until the day after your test. Do not sign legal documents or make major decisions until the medicine wears off and you can think clearly. The anesthesia can make it hard for you to fully understand what you are agreeing to. Additional Information for Sedation Patients For patients who received sedation: You may have received medications before and/or during your procedure which effects your judgement and reaction time. Do not drive, operate machinery, drink alcoholic beverages or make important decisions for 24 hours. Be careful on stairs as you may be unsteady on your feet. You may eat a regular diet as tolerated. Do not smoke if you are alone. IV site: Slight redness or tenderness is normal, you can use a warm compress if you would like. If tenderness and/or redness increase or if foul drainage occurs, please contact your Doctor. Please call [phone] before 8pm Mon-Fri with problems, questions or concerns. If you call after 8pm or on weekends, call the Hospital at [phone] and ask to speak to the Resolution Specialist demolition specialist and the tank house operator helper will contact that person for you. When should you call for help? Call [phone] anytime you think you may need emergency care. For example, call if: You passed out (lost consciousness). You pass maroon or bloody stools. You have trouble breathing. Call your doctor now or seek immediate medical care if: You have pain that does not get better after you take pain medicine. You are sick to your stomach or cannot drink fluids. You have new or worse belly pain. You have blood in your stools. You have a fever. You cannot pass stools or gas. Watch closely for changes in your health, and be sure to contact your doctor if you have any problems. Where can you learn more? [facility] View your After Visit Summary and more online at [email or web address] If you would like to provide feedback about your hospital experience, please call the Office of Patient and Family Relations at . If you have received this After Visit Summary in error, please immediately return it in person to the department, or notify the [facility] Privacy Office by calling toll free at between the hours of 8AM and 5PM to arrange for our retrieval of the documents at no cost to you. Content Version: 12.2 ?? 3664-6179 [employer]. Care instructions adapted under license by [facility]. If you have questions about a medical condition or this instruction, always ask your healthcare professional. [employer] disclaims any warranty or liability for your use of this information. Colonoscopy: What to Expect at Home Your Recovery Your doctor will talk to you about when you will need your next colonoscopy. Your doctor can help you decide how often you need to be checked. This will depend on the results of your test and your risk for colorectal cancer. After the test, you may be bloated or have gas pains. You may need to pass gas. If a biopsy was done or a polyp was removed, you may have streaks of blood in your stool (feces) for a few days. Problems such as heavy rectal bleeding may not occur until several weeks after the test. This isn't common. But it can happen after polyps are removed. This care sheet gives you a general idea about how long it will take for you to recover. But each person recovers at a different pace. Follow the steps below to get better as quickly as possible. How can you care for yourself at home? Activity Rest when you feel tired. You can do your normal activities when it feels okay to do so. Diet Follow your doctor's directions for eating. Unless your doctor has told you not to, drink plenty of fluids. This helps to replace the fluids that were lost during the colon prep. Do not drink alcohol. Medicines Your doctor will tell you if and when you can restart your medicines. He or she will also give you instructions about taking any new medicines. If you take blood thinners, such as warfarin (Coumadin), clopidogrel (Plavix), or aspirin, be sure to talk to your doctor. He or she will tell you if and when to start taking those medicines again. Make sure that you understand exactly what your doctor wants you to do. If polyps were removed or a biopsy was done during the test, your doctor may tell you not to take aspirin or other anti-inflammatory medicines for a few days. These include ibuprofen (Advil, Motrin) and naproxen (Aleve). Other instructions For your safety, do not drive or operate machinery until the medicine wears off and you can think clearly. Your doctor may tell you not to drive or operate machinery until the day after your test. Do not sign legal documents or make major decisions until the medicine wears off and you can think clearly. The anesthesia can make it hard for you to fully understand what you are agreeing to. Additional Information for Sedation Patients For patients who received sedation: You may have received medications before and/or during your procedure which effects your judgement and reaction time. Do not drive, operate machinery, drink alcoholic beverages or make important decisions for 24 hours. Be careful on stairs as you may be unsteady on your feet. You may eat a regular diet as tolerated. Do not smoke if you are alone. IV site: Slight redness or tenderness is normal, you can use a warm compress if you would like. If tenderness and/or redness increase or if foul drainage occurs, please contact your Doctor. Please call [phone] before 8pm Mon-Fri with problems, questions or concerns. If you call after 8pm or on weekends, call the Hospital at [phone] and ask to speak to the Resolution Specialist demolition specialist and the tank house operator helper will contact that person for you. When should you call for help? Call 911 anytime you think you may need emergency care. For example, call if: You passed out (lost consciousness). You pass maroon or bloody stools. You have trouble breathing. Call your doctor now or seek immediate medical care if: You have pain that does not get better after you take pain medicine. You are sick to your stomach or cannot drink fluids. You have new or worse belly pain. You have blood in your stools. You have a fever. You cannot pass stools or gas. Watch closely for changes in your health, and be sure to contact your doctor if you have any problems. Where can you learn more? [facility] View your After Visit Summary and more online at [email or web address] If you would like to provide feedback about your hospital experience, please call the Office of Patient and Family Relations at . If you have received this After Visit Summary in error, please immediately return it in person to the department, or notify the [facility] Privacy Office by calling toll free at between the hours of 8AM and 5PM to arrange for our retrieval of the documents at no cost to you. Content Version: 12.2 ?? 4027-3951 [employer]. Care instructions adapted under license by [facility]. If you have questions about a medical condition or this instruction, always ask your healthcare professional. [employer] disclaims any warranty or liability for your use of this information. * Patient Instructions* Regina Burns MD - 05/15/2024 11:51 AM EST Please see Recommendations in the Provation procedure report which is documented in the procedural note in [facility]. documented in this encounter Medications at Time of Discharge [...] mouth. 07/27/2023 fluticasone propionate (Flonase) 50 mcg/actuation [place], Suspension by Each Nare route daily. 07/27/2023 oxyCODONE (Roxicodone) 5 mg tablet Take 1 tablet by mouth every 4 hours as needed for Pain (for severe pain not controlled by tylenol/ibuprofen). 5 tablet 06/26/2023 documented as of this encounter Progress Notes * Adela Ponce, RN - 05/15/2024 12:21 PM ESTSummary: endo discharge Patient alert and oriented, vital signs stable. Reviewed discharge instructions; patient and spouseverbalized understanding. Copy of instruction sheet with contact numbers for questions/concerns. Pain assessment documented. Patient escorted out of department via wheelchair with spouse. documented in this encounter H&P Notes * Regina Burns MD - 05/15/2024 11:29 AM EST Gastroenterology and Hepatology Pre-Procedure History and Physical Exam Procedure: Colonoscopy: Indication: Surveillance colonoscopy Patient Active Problem List Diagnosis Code Penile cancer C60.9 Intra-abdominal fluid collection R18.8 Surgical site infection T81.49XA Edema R60.9 EXAM: HEENT: Airway examined, oropharynx clear Mallampati Score: I (soft palate, uvula, fauces, tonsillar pillars visible) LUNGS: Clear to auscultation HEART: Regular rate and rhythm, normal S1, S2 ABDOMEN: Normal bowel sounds, soft, non tender, non distended, A/P Proceed with the planned endoscopic procedure. ASA 2 - Patient with mild systemic disease with no functional limitations Sedation Plan: moderate (conscious sedation) Risks and benefits of the procedure explained to the patient. Consent signed. documented in this encounter Miscellaneous Notes * Op Note - Regina Burns MD - 05/15/2024 11:38 AM EST [facility] Operative Note Patient Name: Eduardo Contreras : [id number] MR#: [id number] Case Date: 05/15/2024 Surgeon: Surgeons and Role: * Regina Burns MD - Primary Preoperative diagnosis: surveillance colonoscopy Postoperative diagnosis: diverticulosis, radiation proctopathy - mild Procedure(s) (LRB): COLONOSCOPY,SCREENING (WRVU 3.26) (N/A) Anesthesia: IVCS Full procedure note is documented under the Procedure section of [facility]. Attestation: Case Date: 05/15/2024 I performed this procedure without the involvement of a resident. REGINA BURNS MD 05/15/2024 documented in this encounter Plan of Treatment Upcoming Encounters Date Type Department Care Team (Late st Contact Info) Description 06/07/2024 1:00 PM EST TH Visit (TeleHealth) [place] [address] Zachary Garcia MD [facility] [place] [address] 06/11/2024 9:00 AM EST Office Visit [place] [address] Espinoza, Caroline E, OT 07/10/2024 8:00 AM EST Office Visit [place] [address] Espinoza, Caroline E, OT 07/24/2024 10:00 AM EST Office Visit [place] [address] Espinoza, Caroline E, OT 08/07/2024 10:00 AM EST Office Visit [place] [address] Espinoza, Caroline E, OT 08/21/2024 10:00 AM EST Office Visit [place] [address] Espinoza, Caroline E, OT documented as of this encounter Procedures Procedure Name Priority Date/Time Associated Diagnosis Comments Colonoscopy, Diagnostic (88502) 05/15/2024 11:30 AM EST Encounter for screening colonoscopy COLONOSCOPY Routine 05/15/2024 11:20 AM EST documented in this encounter Results * COLONOSCOPY (05/15/2024 11:20 AM EST) COLONOSCOPY [facility] Endoscopy Procedure Date: 05/15/2024 11:20 AM ? Patient Name: Eduardo Contreras ? Date of : 1950 ? Age: 73 ? Order #: [id number] ? Instrument Name: [id number] ? Procedure: ? Colonoscopy Indications: ? High risk colon cancer ? surveillance: Personal history of ? adenomatous colonic polyps Providers: ? Regina Burns MD, Hudson Matthew ? KIRA Ford, Krystian Bahena MD: ?Shannan Arellano Medicines: ? Midazolam 3 mg IV, Fentanyl 125 ? micrograms IV Complications: ? No immediate complications. Procedure: ? Pre-Anesthesia Assessment: ? - Prior to the procedure, a History ? and Physical was performed, and ? patient medications, allergies and ? sensitivities were reviewed. The ? patient's tolerance of previous ? anesthesia was reviewed. ? - The risks and benefits of the ? procedure and the sedation options ? and risks were discussed with the ? patient. All questions were ? answered and informed consent was ? obtained. ? - Abdominal Examination: bowel ? sounds present, abdomen soft and ? non-tender, no masses or ? organomegaly noted. ? - CV Examination: normal. ? - Mental Status Examination: alert ? and oriented. ? - Respiratory Examination: clear to ? auscultation. ? - ASA Grade Assessment: II - A ? patient with mild systemic disease. ? - After reviewing the risks and ? benefits, the patient was deemed in ? satisfactory condition to undergo ? the procedure. ? - The anesthesia plan was to use ? moderate sedation/analgesia ? (conscious sedation). ? - Immediately prior to ? administration of medications, the ? patient was re-assessed for ? adequacy to receive sedatives. ? - Sedation was administered by the ? nurse. The sedation level attained ? was moderate. ? - The heart rate, respiratory rate, ? oxygen saturations, blood pressure, ? adequacy of pulmonary ventilation, ? and response to care were monitored ? throughout the procedure. ? - The physical status of the ? patient was re-assessed after the ? procedure. ? The procedure, indications, ? benefits, risks and alternatives ? were explained to the patient. ? Specifically discussed were ? potential complications including, ? but not limited to, bleeding, ? perforation, infection, missing a ? cancer, and adverse medication ? reactions. The patient was placed ? in the left lateral decubitus ? position, and a digital rectal exam ? was performed. The Colonoscope was ? inserted in the anus and under ? direct visualization, advanced to ? the terminal ileum. Careful ? inspection was made as the ? colonoscope was withdrawn. The ? colonoscopy was performed without ? difficulty. The patient tolerated ? the procedure well. The quality of ? the bowel preparation was good. ? Anatomical landmarks were ? photographed. ? Findings: ? The perianal and digital rectal examinations were ? normal. ? The terminal ileum appeared normal. ? Multiple small angioectasias without bleeding were ? found in the rectum. ? The exam was otherwise without abnormality. ? A few small-mouthed diverticula were found in the ? sigmoid colon. ? Moderate Sedation: ? Moderate (conscious) sedation was administered by the ? nurse and supervised by the endoscopist. The ? following parameters were monitored: oxygen ? saturation, heart rate, blood pressure, and response ? to care. Impression: ?- The examined portion of the ileum ? was normal. ? - Multiple non-bleeding colonic ? angioectasias. 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 ? - The examination was otherwise ? normal. ? - Mild diverticulosis in the ? sigmoid colon. ? - No specimens collected. Recommendation: ?- Repeat colonoscopy in 5 years for ? surveillance. ? Attending Participation: ? I personally performed the entire procedure. I was ? present during the intraservice time as documented by ? the sedation RN. ? Regina Burns MD 05/15/2024 11:57:51 AM This report has been signed electronically. Number of Addenda: 0 Note Initiated On: 05/15/2024 11:20 AM PROVATION 05/15/2024 11:2 0 AM EST Shannan Arellano APRN GENERAL SURGICAL ORD ERABLES PROVATION documented in this encounter Visit Diagnoses Not on filedocumented in this encounter Active and Recently Administered Medications Times are shown in EST. PRN Medication Order 05/13/2024 05/14/2024 05/15/2024 fentaNYL (pf) (50 mcg/mL) multi-dose injection (CANCELED) PRN, Starting on Tue05/15/24 at 1134, Until Tue05/15/24 at 1428, Intra-Operative (Intra-Procedure), Routine 1133 (Given - Provid er: Molly Rod RN)1136 (Given - Provider: Molly Rod RN)1142 (Given - Provider: Molly Rod RN) midazolam (pf) (Versed) (1 mg/mL) multi-dose injection (CANCELED) PRN, Starting on Tue05/15/24 at 1134, Until Tue05/15/24 at 1428, Intra-Operative (Intra-Procedure), Routine 1133 (Given - Provid er: Molly Rod RN)1136 (Given - Provider: Molly Rod RN)1142 (Given - Provider: Molly Rod RN) documented in this encounter Care Teams Membership Sales Representative Relationship Specialty Start Date End Date Shannan Arellano, [place] [address] PCP - General Family Medicine 02/03/23 documented as of this encounter
--- OUTSIDE RECORDS SUMMARY | 2024-06-04 17:27 | XMS_ITS | Encounter Summary ---
Author Organization [facility] Address [facility] [address] Care Team Providers Care Card Processing Clerk Name Role Phone Shannan Arellano GAYLE Primary Care Provider [phone] Reason for Visit * Physical Therapy (Routine) - Authorized Specialty Diagnoses / Procedures Referred By Marry kelsey Referred To Contact Physical Therapy Diagnoses Penile cancer Zachary Garcia MD [facility] [place] [address] [facility] [place] [address] Referral ID Status Reason Start Date Expiration Date Visits Requested Visits Authorized [id number] Authorized Evaluate and Treat 05/17/2023 06/15/2024 100 100 Encounter Details Date Type Department Care Team (Late st Contact Info) Description 05/29/2024 9:00 AM EST Office [place] [address] Caroline Espinoza, OT Lymphedema; 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 No 07/28/2023 DH IPV Inpatient [...] - Therapy - Caroline Espinoza OT - 05/29/2024 9:00 AM ESTSummary: OT/CLT LE LYMPHEDEMA TREATMENT NOTE Occupational Therapy Occupational Therapy Visit Patient Name: Eduardo Contreras Date of : 1950 Today's Date: 05/29/2024 Date of Exam/First treatment: 05/31/23 Date of Onset 03/18/23 Referring Provider: Zachary Garcia MD Diagnosis and pertinent co-morbidities: Penile CA LE, scrotal and pelvic lymphedema Primary Insurance: Payor: MEDICARE / Plan: MEDICARE [...] He would at this point benefit from advanced sequential compression pumps for B LE and pelvis/trunk. Pending with [facility] for follow through. He avinash require advanced pump secondary to pelvic, trunk and abdominal lymphedema. He has been utilizing basic pump daily for 2 hours. ( Two one hour periods.). Noted improvement in leg girth however continues withtruncal and pelvic lymphedema. He has been consistent with scrotal pad, compression wear, elevationand MLD daily. He continues to have difficulty with control of his pelvic and truncal lymphedema with significant pelvic fibrosis. Hyperpigmentation in inguinal and pubis s/p radiation treatment. He is also elevating and utilizing muscle pump HEP 1-2 times per day. Patient would benefit from ADVANCED sequential compression pumps to address his pelvic and truncal lymphedema. Information resubmitted today to [facility] for Flexitouch. PRECAUTIONS: activity as tolerated SOCIAL SUPPORTS: Patient lives with spouse, Kate, 6 children 30 years. Does not smoke. Anddrinks rarely ENVIRONMENT: I at home with out DME PATIENT STATED GOAL: I want to get back to work and doing what I like to do. CURRENT ACTIVITY LEVEL: Active lifestyle and work. 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 PAIN: Occasional knee and back pain from OA reported. No c.o pain. FUNCTIONAL LIMITATIONS: On a difficulty scale with 0 being unable to perform an activity, and 10 being able to perform at a pre injury/occurance level 1010 HAND DOMINANCE: Patient is R hand dominant. [...] 11/22/23 Left 11/22/23 Right 02/21/24 LEFT 02/21/24 LEFT 04/03/24 Right 04/19/24 Left 04/19/24 RIGHT 05/03/24 LEFT 05/03/24 LEFT 05/29/24 Mid foot 22.8 23.2 22.5 23.6 22.5 23.5 23 25 23.6 22.3 23.6 22.5 23.9 23.3. Ankle 25.4 24 24 24.1 22.6 26 23.9 27.5 24.6 21.4 23.2 23.8 26.7 25.2 Calf 33 35.3 31.7 34.8 35.5 34.6 32 35.5 37.5 30.5 34.6 31.7 36.3 37.2 D 32.3 31.8 33.5 33 32.5 33.2 33 35.4 35.2 32 34.9 31.6 34.6 34 Knee 35.7 35.5 36.8 37.2 36.2 38.4 36.5 42.4 38.6 35.4 38.7 35 39.3 38 Knee +12 45.3 46.8 46.7 47 46.5 49.7 47 49.6 55 45.5 46 46.1 51.1 50.6 Upper thigh G 55 53.4 51.2 52 51.7 54.2 52.7 58.2 57.5 51.1 56.2 50.2 55.7 56 A-D Length 38 A-G Length 75 Waist 87.5 86.5* 87 Hips 95.2 94.2* 96.4 * post MLD measurements. Patient continues with persistent lower abdomen, pelvis lymphedema even with consistent follow through with all techniques taught. Lower abdomen and above pubic area continues firm and fluid filled. Responds positively to MLD sessions. Patient has been consistent with follow through with all techniques taught. Patient has procurred vibration plate for home use and is adding to his management routine. Utilizing [employer]st 20-30 MMhG compression tights daily with scrotal pad. He finds these comfortable. He wears these most often. Utilizing scrotal pad to keep scrotal swelling down , utilizing with greater consistency. Usually using 5-6 days [...] reduction. Scar management techniques. SCD utilization indicated. Patient is currently using basic pump but would benefit [...] node drainage as indicated for fluid management 11/22/23 goal met 05/29/24 consistent with follow through. 2. Patient will be I with donning/doffing [...] HEP. Elevation gu sha paddle. 08/16/23 ongoing. 05/29/24 scar mobile 6. SCD trial. [employer] Pending for advanced Therapy Snf Goals 12 weeks 1. Patient will demonstrate ability to maintain reduction in swelling utilizing all techniques taught. 05/29/24 Patient continues to benefit from MLD every [...] [employer] for follow through. Education/training with edda sha paddle. Good return demo. Education and [...] 4 weeks. Charges Minutes OT EVAL LOW (76813) OT EVAL MOD (00577) OT EVAL HIGH (95177) MANUAL THERAPY(31457) 45 SELF CARE/HOME MANAGEMENT (17086) THERAPEUTIC/FUNCTIONAL ACTIVITIES(55842) THEREX NEUROMUSCULAR BINA(69954) THEREX: STRENGTH ROM (79412) 15 Caroline Espinoza, OT/CLT ADVANCED PNEUMATIC COMPRESSION [...] PM EST TH Visit (TeleHealth) [place] [address] Zachary Garcia MD [facility] [place] [address] 06/11/2024 9:00 AM EST Office [place] [address] Espinoza, Caroline E, OT 07/10/2024 8:00 AM EST Office [place] [address] Espinoza, Caroline E, OT 07/24/2024 10:00 AM EST Office [place] [address] Espinoza, Caroline E, OT 08/07/2024 10:00 AM EST Office [place] [address] Espinoza, Caroline E, OT 08/21/2024 10:00 AM EST Office [place] [address] Espinoza, Caroline E, OT documented as of this encounter Visit Diagnoses Diagnosis Lymphedema Other lymphedema 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
--- OUTSIDE RECORDS SUMMARY | 2024-06-04 17:27 | XMS_ITS | Encounter Summary ---
Author Organization [facility] [place] [address] Care Team Providers Care Word Processing Supervisor Name Role Phone Shannan Arellano GAYLE Primary Care Provider [phone] Reason for Visit * Diagnostic Test (Routine) - Closed Specialty Diagnoses / Procedures Referred By Marry kelsey Referred To Contact Radiology Diagnoses Penis cancer Procedures NM PET CT Skull Base to Mid-thigh Zachary Garcia MD [facility] [place] [address] [place] [address] Referral ID Status Reason Start Date Expiration Date V isits Requested Visits Authorized [id number] Closed Specialty Service Requested 03/16/2024 09/13/2025 1 1 Encounter Details Date Type Department Care Team (Latest Contact Info) Description 06/01/2024 9:47 AM EST - 06/01/2024 11:59 PM [facility] Hospital Encounter [place] [address] Zachary Garcia MD [facility] [place] [address] Arrived Discharge Disposition: Home Social History Tobacco Use Types Packs/Day Years Used Date Smoking Tobacco: Never Smokeless Tobacco: Never Alcohol Use Standard Drinks/Week Comments Yes 1 (1 standard drink = 0.6 oz pur e alcohol) [facility] Utilities Answer Date Recorded In the past 12 months has [employer], gas, oil, or water company threatened [...] place to sleep or slept in a correction (including now)? No 07/28/2023 DH IPV Inpatient [...] mouth. 07/27/2023 fluticasone propionate (Flonase) 50 mcg/actuation [place], Suspension by Each Nare route daily. 07/27/2023 oxyCODONE (Roxicodone) 5 mg tablet Take 1 tablet by mouth every 4 hours as needed for Pain (for severe pain not controlled by tylenol/ibuprofen). 5 tablet 06/26/2023 documented as of this encounter Plan of Treatment Upcoming Encounters Date Type Department Care Team (Late st Contact Info) Description 06/07/2024 1:00 PM EST TH Visit (TeleHealth) [place] [address] Zachary Garcia MD [facility] [place] [address] 06/11/2024 9:00 AM EST Office Visit [place] [address] Caroline Espinoza OT 07/10/2024 8:00 AM EST Office [place] [address] Espinoza, Caroline E, OT 07/24/2024 10:00 AM EST Office [place] [address] Espinoza, Caroline E, OT 08/07/2024 10:00 AM EST Office [place] [address] Espinoza, Caroline E, OT 08/21/2024 10:00 AM EST Office [place] [address] Espinoza, Caroline E, OT documented as of this encounter Procedures Procedure Name Priority Date/Time Associated Diagnosis Comments NM PET CT SKULL BASE TO MID-THIGH ([facility]) Routine 06/01/2024 11:05 AM EST Penis cancer POC, GLUCOSE Routine 06/01/2024 9:56 AM EST documented in this encounter Results * POC, GLUCOSE (06/01/2024 9:56 AM EST) Glucometer, POC 97 65 - 199 mg/dL 06/01/2024 9:57 AM EST [facility] Comment:Supplemental ranges: <140 mg/dL before meals <180 mg/dL all other times of the day. Blood CAPILLARY BLOOD / Unknown 06/01/2024 9:56 AM EST 06/01/2024 9:57 AM EST Zachary Garcia MD POINT OF CARE TEST O RDERABLES [facility] [place] [address] documented in this encounter Visit Diagnoses Not on filedocumented in this encounter Care Teams Word Processing Supervisor Relationship Specialty Start Date End Date Shannan Arellano APR[place] [address] PCP - General Family Medicine 02/03/23 documented as of this encounter
--- OUTSIDE RECORDS SUMMARY | 2024-06-04 17:27 | XMS_ITS | Encounter Summary ---
Author Organization [facility] Address [facility] [place] [address] Care Team Providers Care Quality Inspector Name Role Phone Shannan Arellano APRN Primary Care Provider [phone] Encounter Details Date Type Department Care Team (Late st Contact Info) Description 05/15/2024 10:30 AM EST - 05/15/2024 11:15 AM EST Surgery Gastroenterology at [facility] [address] Regina Burns MD [facility] [place] [address] COLONOSCOPY,SCREENING (WRVU 3.26) Social History Tobacco Use Types Packs/Day Years Used Date Smoking Tobacco: Never Smokeless Tobacco: Never Alcohol Use Standard Drinks/Week Comments Yes 1 (1 standard drink = 0.6 oz pur e alcohol) [facility] Utilities Answer Date Recorded In [...] place to sleep or slept in a assisted (including now)? No 07/28/2023 DH IPV Inpatient [...] Sign Reading Time Taken Comments Blood Pressure 104/68 05/15/2024 10:04 AM EST Pulse 55 05/15/2024 10:04 AM EST Temperature 36.3 ??C (97.3 ??F) 05/15/2024 10:[address] Respiratory Rate 17 05/15/2024 10:04 AM EST Oxygen Saturation 97% 05/15/2024 10:04 AM EST Inhaled Oxygen Concentration - - Weight [...] occurs, please contact your Doctor. Please call [phone] before 8pm Mon-Fri with problems, questions or concerns. If you call after 8pm or on weekends, call the Hospital at [phone] and ask to speak to the Industrial Rehabilitation Consultant health and physical education teacher and the proof machine operator supervisor will contact that person for you. When should you call for help? Call [phone] anytime you think you may need emergency [...] any problems. Where can you learn more? [facility] View your After Visit Summary and more online at [email or web address] If you would like to provide feedback about your hospital experience, please call the Office of Patient and Family Relations at . If you have received this After Visit Summary in error, please immediately return it in person to the department, or notify the [facility] Privacy Office by calling toll free at between the hours of 8AM and 5PM to arrange for our retrieval of the documents at no cost to you. Content Version: 12.2 ?? 8144-4790 [employer]. Care instructions adapted under license by [facility]. If you have questions about a medical condition or this instruction, always ask your healthcare professional. [employer] disclaims any warranty or liability for your [...] occurs, please contact your Doctor. Please call [phone] before 8pm Mon-Fri with problems, questions or concerns. If you call after 8pm or on weekends, call the Hospital at [phone] and ask to speak to the Industrial Rehabilitation Consultant health and physical education teacher and the proof machine operator supervisor will contact that person for you. When should you call for help? Call [phone] anytime you think you may need emergency [...] any problems. Where can you learn more? [facility] View your After Visit Summary and more online at [email or web address] If you would like to provide feedback about your hospital experience, please call the Office of Patient and Family Relations at . If you have received this After Visit Summary in error, please immediately return it in person to the department, or notify the [facility] Privacy Office by calling toll free at between the hours of 8AM and 5PM to arrange for our retrieval of the documents at no cost to you. Content Version: 12.2 ?? 3053-9009 [employer]. Care instructions adapted under license by [facility]. If you have questions about a medical condition or this instruction, always ask your healthcare professional. [employer] disclaims any warranty or liability for your [...] mouth. 07/27/2023 fluticasone propionate (Flonase) 50 mcg/actuation [place], Suspension by Each Nare route daily. 07/27/2023 oxyCODONE (Roxicodone) 5 mg tablet Take 1 tablet by mouth every 4 hours as needed for Pain (for severe pain not controlled by tylenol/ibuprofen). 5 tablet 06/26/2023 documented as of this encounter Progress Notes * Adela Ponce RN - 05/15/2024 12:21 PM ESTSummary: endo [...] Burns MD - 05/15/2024 11:38 AM EST [facility] Operative Note Patient Name: Eduardo Contreras : [id number] MR#: [id number] Case Date: 05/15/2024 Surgeon: Surgeons and Role: * Regina Burns MD - Primary Preoperative diagnosis: surveillance colonoscopy Postoperative diagnosis: diverticulosis, radiation proctopathy - mild Procedure(s) (LRB): COLONOSCOPY,SCREENING (WRVU 3.26) (N/A) Anesthesia: IVCS Full procedure note is documented under the Procedure section of [facility]. Attestation: Case Date: 05/15/2024 I performed this procedure without the involvement of a resident. REGINA BURNS MD 05/15/2024 documented in this encounter Plan of Treatment Upcoming Encounters Date Type Department Care Team (Late st Contact Info) Description 06/07/2024 1:00 PM EST TH Visit (TeleHealth) [place] [address] Zachary Garcia MD [facility] [place] [address] 06/11/2024 9:00 AM EST Office Visit [place] [address] Espinoza, Caroline E, OT 07/10/2024 8:00 AM EST Office [place] [address] Espinoza, Caroline E, OT 07/24/2024 10:00 AM EST Office [place] [address] Espinoza, Caroline E, OT 08/07/2024 10:00 AM EST Office [place] [address] Espinoza, Caroline E, OT 08/21/2024 10:00 AM EST Office [place] [address] Espinoza, Caroline E, OT documented as of this encounter Procedures Procedure Name Priority Date/Time Associated Diagnosis Comments Colonoscopy, Diagnostic (72112) 05/15/2024 11:30 AM EST Encounter for screening colonoscopy COLONOSCOPY Routine 05/15/2024 11:20 AM EST documented in this encounter Results * COLONOSCOPY (05/15/2024 11:20 AM EST) COLONOSCOPY [facility] Endoscopy Procedure Date: 05/15/2024 11:20 AM ? Patient Name: Eduardo Contreras ? Date of : 1950 ? Age: 73 ? Order #: [id number] ? Instrument Name: [id number] ? Procedure: ? Colonoscopy Indications: ? High [...] [employer]ATION documented in this encounter Visit Diagnoses Diagnosis Encounter for screening colonoscopy Special screening for malignant neoplasms, colon documented in this encounter Administered Medications Inactive Administered Medications - up to 3 most recent administrations Medication Order MAR Action Action Date Dose Rate Site fentaNYL (pf) (50 mcg/mL) multi-dose injection PRN, Starting on Tue05/15/24 at 1134, Until Tue05/15/24 at 1428, Intra-Operative (Intra-Procedure), Routine Given 05/15/2024 11:42 AM EST 25 mcg Given 05/15/2024 11:36 AM EST 50 mcg Given 05/15/2024 11:33 AM EST 50 mcg midazolam (pf) (Versed) (1 mg/mL) multi-dose injection PRN, Starting on Tue05/15/24 at 1134, Until Tue05/15/24 at 1428, Intra-Operative (Intra-Procedure), Routine Given 05/15/2024 11:42 AM EST 1 mg Given 05/15/2024 11:36 AM EST 1 mg Given 05/15/2024 11:33 AM EST 1 mg documented in this encounter Active and Recently Administered [...] RN) documented in this encounter Care Teams Quality Inspector Relationship Specialty Start Date End Date Shannan Arellano [place] [address] PCP - General Family Medicine 02/03/23 documented as of this encounter
--- OUTSIDE RECORDS SUMMARY | 2024-06-04 17:27 | XMS_ITS | Encounter Summary ---
Author Organization [facility] Address [facility] [address] Care Team Providers Care Nursery Attendant Name Role Phone Shannan Arellano GAYLE Primary Care Provider [phone] Reason for Visit * Physical Therapy (Routine) - Authorized Specialty Diagnoses / Procedures Referred By Marry kelsey Referred To Contact Physical Therapy Diagnoses Penile cancer Zachary Garcia MD [facility] [place] [address] 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 No 07/28/2023 DH IPV Inpatient [...] - Therapy - Caroline Espinoza OT - 05/03/2024 9:00 AM ESTSummary: OT/CLT LE LYMPHEDEMA TREATMENT NOTE OT/CLT LE [...] for B LE and pelvis/trunk. Pending with [facility] for follow through. He avinash require [...] address his pelvic and truncal lymphedema. Information submitted today to [employer] for Flexitouch. PRECAUTIONS: activity as tolerated SOCIAL SUPPORTS: Patient lives with spouse, Kate, 6 children 30 years. Does not smoke. Anddrinks rarely ENVIRONMENT: I at home with out DME PATIENT STATED GOAL: I want to get back to work and doing what I like to do. CURRENT ACTIVITY LEVEL: Active lifestyle and work. 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 PAIN: Occasional knee and back pain from OA reported. No c.o pain. FUNCTIONAL LIMITATIONS: On a difficulty scale with 0 being unable to perform an activity, and 10 being able to perform at a pre injury/occurance level 10/ HAND DOMINANCE: Patient is R hand dominant. [...] 03/20/24 LEFT 04/03/24 Right 04/19/24 Left 04/19/24 RIGHT 05/03/24 LEFT 05/03/24 Mid foot 22.8 23.2 22.5 23.6 22.5 23.5 23 25 22 22.9 23.6 22.3 23.6 22.5 23.9 Ankle 25.4 24 24 24.1 22.6 26 23.9 27.5 22.1 23.8 24.6 21.4 23.2 23.8 26.7 Calf 33 35.3 31.7 34.8 35.5 34.6 32 35.5 29.5 35.7 37.5 30.5 34.6 31.7 36.3 D 32.3 31.8 33.5 33 32.5 33.2 33 35.4 32 34.2 35.2 32 34.9 31.6 34.6 Knee 35.7 35.5 36.8 37.2 36.2 38.4 36.5 42.4 35.6 37.6 38.6 35.4 38.7 35 39.3 Knee +12 45.3 46.8 46.7 47 46.5 49.7 47 49.6 45.6 51.4 55 45.5 46 46.1 51.1 Upper thigh G 55 53.4 51.2 52 51.7 54.2 52.7 58.2 50.7 57.8 57.5 51.1 56.2 50.2 55.7 A-D Length 38 A-G Length 75 Waist [...] 6. SCD trial. [facility] Pending Therapy [facility] Goals 12 weeks 1. Patient will demonstrate [...] 4 weeks. Charges Minutes OT EVAL LOW (74383) OT EVAL MOD (77246) OT EVAL HIGH (98237) MANUAL THERAPY(84932) 45 SELF CARE/HOME MANAGEMENT (90920) THERAPEUTIC/FUNCTIONAL ACTIVITIES(33643) THEREX NEUROMUSCULAR BINA(62809) THEREX: STRENGTH ROM (09667) 15 Caroline Espinoza, OT/CLT ADVANCED PNEUMATIC COMPRESSION [...] PM EST TH Visit (TeleHealth) [place] [address] Zachary Garcia MD [facility] [place] [address] 06/11/2024 9:00 AM EST Office [place] [address] Espinoza, Caroline E, OT 07/10/2024 8:00 AM EST Office [place] [address] Espinoza, Caroline E, OT 07/24/2024 10:00 AM EST Office [place] [address] Espinoza, Caroline E, OT 08/07/2024 10:00 AM EST Office [place] [address] Espinoza, Caroline E, OT 08/21/2024 10:00 AM EST Office [place] [address] Espinoza, Caroline E, OT documented as of this encounter Visit Diagnoses Diagnosis Lymphedema Other lymphedema 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
--- OUTSIDE RECORDS SUMMARY | 2024-06-04 17:27 | XMS_ITS | Clinical Summary ---
Author Organization [facility] Address [facility] [place] [address] Care Team Providers Care Principal Statistical Programmer Name Role Phone Shannan Arellano CAUSE ANALYST Primary Care Provider [phone] Allergies No known active allergies Medications Medication Sig Dispensed Refills Start Date End Date Status oxyCODONE (Roxicodone) 5 mg tablet Take 1 tablet by mouth every 4 hours as needed for Pain (for severe pain not controlled by tylenol/ibuprofen ). 5 tablet 06/26/2023 Active Additional Information Patient not taking.Reported on 07/26/2023 acetaminophen (Tylenol) 325 mg tablet Take 650 mg by mouth as needed for Pain. Maybe once a week Active famotidine (Pepcid) 40 mg tablet Take 40 mg by mouth. 07/27/2023 Active fluticasone propionate (Flonase) 50 mcg/actuation [place], Suspension by Each Nare route daily. 07/27/2023 Active prochlorperazine (Compazine) 10 mg tabletIndications:Pen ile cancer Take 1 tablet by mouth every 6 hours as needed for Nausea. 30 tablet 3 08/16/2023 Active Additional Information Patient not taking.Reported on 10/28/2023 lidocaine-prilocaine (EMLA) CreamIndications:Peni le cancer Apply topically as needed. 30 g 1 09/05/2023 Active Additional Information Patient not taking.Reported on 09/08/2023 loperamide (IMODIUM A-D) 2 mg Tablet Take by mouth 4 times daily as needed for Diarrhea. Maximum 16 mg in 24 hours Active Psyllium Seed-Sucrose (0) Powder Take by mouth. Active simethicone (Gas-X Chew) 80 mg chewable tablet Take 80 mg by mouth every 6 hours as needed for Flatulence. Active guaiFENesin (Robitussin) 20 mg/mL Liquid Take 200 mg by mouth 3 times daily as needed for Cough. Active ondansetron ODT (Zofran-ODT) 8 mg disintegrating tablet Take 1 tablet by mouth every 8 hours as needed for Nausea. Put the tablet under your tongue and it will dissolve. 30 tablet 10/07/2023 Active Additional Information Patient not taking.Reported on 10/28/2023 silver sulfADIAZINE (Silvadene) 1 % Cream Apply topically daily. 400 g 10/14/2023 Active Additional Information Patient not taking.Reported on 03/16/2024 tamsulosin (Flomax) 0.4 mg capsule Take 1 capsule by mouth nightly. 30 tablet 11/04/2023 Active Active Problems Problem Noted Date Diagnosed Date Edema 10/06/2023 Surgical site infection 07/20/2023 Intra-abdominal fluid collection 07/19/2023 Penile cancer 06/24/2023 Cancer Staging:Pathologic:Stage IV(pT2, pN3, cM0) - Signed by Rolly Peters MD on 07/22/2023 Encounters Date Type Department Care Team Description 06/04/2024 [place] [phone] Zo Arboleda RN 06/01/2024 9:47 AM EST - 06/01/2024 11:59 PM EST Hospital Encounter [place] [phone] Zachary Garcia MD Arrived Discharge Disposition: Home 06/01/2024 9:47 AM EST - 06/01/2024 11:59 PM EST Hospital [place] [phone] Zachary Garcia MD Penis cancer Discharge Disposition: Home 06/01/2024 Travel 05/29/2024 9:00 AM EST Office Visit Occupational Therapy at [place] [phone] Caroline Espinoza, OT Lymphedema; 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 05/29/2024 [place] [address] Zo Arboleda, RN 05/29/2024 Travel 05/15/2024 10:30 AM EST - 05/15/2024 11:15 AM EST Surgery Gastroenterology at [place] [phone] Peter Burns MD COLONOSCOPY,SCREENI NG (WRVU 3.26) 05/15/2024 9:36 AM EST - 05/15/2024 12:28 PM EST Hospital En[place] [address] Peter Burns MD Discharge Disposition: Home 05/03/2024 9:00 AM EST Office Visit Occupational Therapy at [place] [phone] Espinoza, Caroline E, OT Lymphedema; 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 05/03/2024 Travel 04/30/2024 [place] [address] Kristel Mendoza 04/19/2024 9:00 AM EDT Office [place] [address] Espinoza, Caroline E, OT Lymphedema; 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; Scar 04/19/2024 Travel 04/03/2024 8:00 AM EDT Office [place] [address] Espinoza, Caroline E, OT Lymphedema 04/03/2024 Travel 04/03/2024 [place] [address] Zo Arboleda, RN 03/20/2024 9:00 AM EDT Office [place] [address] Espinoza, Caroline E, OT Lymphedema (Primary Dx); 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; Scar 03/20/2024 Travel 03/19/2024 [place] [address] Marline Goetz, RN 03/16/2024 10:00 AM EDT [place] [address] Zachary Garcia MD Penis cancer (Primary Dx) 03/15/2024 [place] [address] Marline Goetz, RN from Last 3 Months Family History Medical History Relation Comments Breast Cancer Maternal Grandmother Relation Status Comments Maternal Grandmother Social History Tobacco Use Types Packs/Day Years Used Date Smoking Tobacco: Never Smokeless Tobacco: Never Tobacco Cessation:Counseling Given: Not Answered Alcohol Use Standard Drinks/Week Comments Yes 1 (1 standard drink = 0.6 oz pur e alcohol) [facility] Utilities Answer Date Recorded In the past 12 months has th e [place], gas, oil, or water [employer] threatened to shut off services in your [...] place to sleep or slept in a usp (including now)? No 07/28/2023 [facility] Inpatient Questions Answer Date Recorded Does Anyone [...] on file Sexual Orientation Not on file Last Filed Vital Signs Vital Sign Reading Time Taken Comments Blood Pressure 93/68 05/15/2024 12:10 PM EST Pulse 54 05/15/2024 11:52 AM EST Temperature 36.3 ??C (97.3 ??F) 05/15/2024 10:[address] Respiratory Rate 16 05/15/2024 11:55 AM EST Oxygen Saturation 94% 05/15/2024 12:10 PM EST Inhaled Oxygen Concentration - - Weight 72.6 kg (160 lb) 05/15/2024 10:04 AM EST Height 172.2 cm (5' 7.8) 11/18/2023 12:30 PM ED T Body Mass Index 24.48 11/18/2023 12:30 PM EDT Plan of Treatment Upcoming Encounters Date Type Department Care Team (Late st Contact Info) Description 06/07/2024 1:00 PM EST TH Visit (TeleHealth) [place] [phone] Zachary Garcia MD [facility] [place] [address] 06/11/2024 9:00 AM EST Office Visit [place] [phone] Caroline Espinoza OT 07/10/2024 8:00 AM EST Office [place] [phone] Espinoza, Caroline E, OT 07/24/2024 10:00 AM EST Office [place] [phone] Espinoza, Caroline E, OT 08/07/2024 10:00 AM EST Office [place] [phone] Espinoza, Caroline E, OT 08/21/2024 10:00 AM EST Office [place] [phone] Espinoza, Caroline E, OT Health Maintenance Due Date Last Done Comments CT Colonography 1950 FIT DNA 1950 FIT 1950 Sigmoidoscopy 1950 Hepatitis C Screening 1969 Lipid Screening 1969 Tetanus/Diphtheria/Pertussis Vaccines (1 - Tdap) 1970 Zoster vaccine (1 of 2) 2001 Advance Directive 2006 Pneumoccocal Vaccine: 65+ (1 of 1 - PCV) 2016 Covid-19 Vaccine (1 - season) 2024 Influenza (Flu) vaccine (1 o f 1 - Influenza standard series) 02/19/2024 Colonoscopy 05/15/2034 05/15/2024, 05/15/2024 Colorectal Cancer Screening 05/15/2034 Sigmoidoscopy (10 year) with FIT yearly 05/15/2034 1 07/15/2023, 05/15/2024 Medical Devices Explanted Type Area Nutrition Manager Device Identifier Shelf Expiration Date Model / Serial / Lot Port Infusion 8fr Cath Power Injectable Lp 1lum Ct Ti [id number] Implanted:Qty: 1 on 08/25/2023 by Robbin Cristobal PA Explanted:Qty: 1 on 12/20/2023 by Katerina Fernandez PA IMPLANTS Right: Chest Wall [employer] - CR BARD 09/17/2024 [id number] / / Description:8fr Procedures Procedure Name Priority Date/Time Associated Diagnosis Comments NM PET CT SKULL BASE TO MID-THIGH ([facility]) Routine 06/01/2024 11:05 AM EST Penis cancer POC, GLUCOSE Routine 06/01/2024 9:56 AM EST Colonoscopy, Diagnostic (96723) 05/15/2024 11:30 AM EST Encounter for screening colonoscopy COLONOSCOPY Routine 05/15/2024 11:20 AM EST OT PLAN OF CARE CERT/RE-CERT Routine 03/20/2024 10:58 AM EDT Lymphedema 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 ? Electronically signed by: Alfredo Everett MD, [facility] ([phone]), at 06/04/2024 4:10 PM Narrative 06/04/2024 4:10 PM EST EXAMINATION: NM PET CT STANDARD SKULL BASE TO MID-THIGH CLINICAL HISTORY: Hx of Node positive penile cancer sp node dissection and XRT C60.9, Malignant neoplasm of penis, unspecified TECHNIQUE: Following IV injection of 81-tegizg-5-deoxyglucose (FDG) a standard uptake of approximately 60 [...] change. No suspicious osseous lesion. Procedure Note Alfredo Everett MD - 06/04/2024 EXAMINATION: NM PET CT STANDARD SKULL BASE TO MID-THIGH CLINICAL HISTORY: Hx of Node positive penile cancer sp node dissection andXRT C60.9, Malignant neoplasm of penis, unspecified TECHNIQUE: Following IV injection of 42-nafecz-5-deoxyglucose (FDG) astandard uptake of approximately 60 minutes, [...] patients who have questions please contactthe health director career that requested your imaging first. Electronically signed by: Alfredo Everett MD, [facility]([phone]), at 06/04/2024 4:10 PM Zachary Garcia MD IMG PET ORDERABLES * POC, GLUCOSE (06/01/2024 9:56 AM EST) Glucometer, POC 97 65 - 199 mg/dL 06/01/2024 9:[address] [facility] Comment:Supplemental ranges: <140 mg/dL before meals <180 mg/dL all other times of the day. Blood CAPILLARY BLOOD / Unknown 06/01/2024 9:56 AM EST 06/01/2024 9:57 AM EST Zachary Garcia MD POINT OF CARE TEST O RDERABLES [facility] [place] [address] * COLONOSCOPY (05/15/2024 11:20 AM EST) COLONOSCOPY [facility] Endoscopy Procedure Date: 05/15/2024 11:20 AM ? Patient Name: Eduardo Contreras ? Date of : 1950 ? Age: 73 ? Order #: [id number] ? Instrument Name: [id number] ? Procedure: ? Colonoscopy Indications: ? High risk colon cancer ? surveillance: Personal history of ? adenomatous colonic polyps Providers: ? Peter Burns MD, [place] Matthew ? KIRA Ford, [...] documented by ? the sedation RN. ? Peter Burns MD 05/15/2024 11:57:51 AM This report has been signed electronically. 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 Production Plant Operator 07/29/2023 2:16 PM designation of personal rep Personal Cement Production Plant Operator 05/09/2023 6:11 AM Personal Rep.() * Attempt Cardiopulmonary Resuscitation - Inpatient (Latest Code Status on File) Date Activated Date Inactivated Comments 12/20/2023 10:38 AM 12/21/2023 4:35 AM Question Answer Comments Code Status decision made by: Patient * Attempt Cardiopulmonary Resuscitation - Inpatient Date Activated Date Inactivated Comments 08/25/2023 7:05 AM 08/26/2023 4:33 AM Question Answer Comments Code Status decision made by: Patient * Attempt Cardiopulmonary Resuscitation - Inpatient Date Activated Date Inactivated Comments 07/19/2023 5:31 PM 07/21/2023 6:04 PM Question Answer Comments Code Status decision made by: Patient * Attempt Cardiopulmonary Resuscitation - Inpatient Date Activated Date Inactivated Comments 06/24/2023 8:00 PM 06/26/2023 6:09 PM Question Answer Comments Code Status decision made by: Patient Care Teams Principal Statistical Programmer Relationship Specialty Start Date End Date Shannan Arellano, [place] [address] PCP - General Family Medicine 02/03/23
--- OUTSIDE RECORDS SUMMARY | 2024-06-04 17:28 | XMS_ITS | Encounter Summary ---
Author Organization [facility] Address [facility] [address] Care Team Providers Care Crystalizer Name Role Phone Shannan Arellano GAYLE Primary Care Provider [phone] Reason for Visit * Physical Therapy (Routine) - Authorized Specialty Diagnoses / Procedures Referred By Marry kelsey Referred To Contact Physical Therapy Diagnoses Penile cancer Zachary Garcia MD [facility] [place] [address] [facility] [place] [address] Referral ID Status Reason Start Date Expiration Date Visits Requested Visits Authorized [id number] Authorized Evaluate and Treat 05/17/2023 06/15/2024 100 100 Encounter Details Date Type Department Care Team (Late st Contact Info) Description 11/22/2023 9:00 AM EDT Office Visit [place] [address] Caroline Espinoza, OT Lymphedema (Primary Dx); Scar; 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 No 07/28/2023 DH IPV Inpatient [...] as of this encounter Progress Notes * Caroline Espinoza OT - 11/22/2023 9:00 AM EDTSummary: OT/CLT LE LYMPHEDEMA PROGRESS NOTE OT/CLT LE LYMPHEDEMA PROGRESS NOTE Date of Exam/First treatment: 05/31/23 Date of Onset 03/18/23 Referring Provider: Zachary Garcia MD Diagnosis and pertinent co-morbidities: Penile CA Primary Insurance: Payor: MEDICARE / Plan: MEDICARE PART A & B / Product Type: *No Product type* / Medicare Cert Period: 05/31/23- 08/29/23 08/29/33-11/28/23 11/29/23- 02/27/24 Penile CA CURRENT HISTORY: Eduardo Contreras is a 73 y.o. male with h/o penile CA. Referred by DR. Garcia. Patient presented initially with swelling/lymphedema with s/p CA and node resection. 06/30/23 local excision of distal urethra with hypospadiac meatus, bilateral groin dissection. MRI show suspicious LEFT inguinal lymph nodes. Cystoscopy and biopsy on 05/09/23 Surgery on 06/24/22 for inguinal dissection and penile tumor resection. Patient has completed adjuvant chemo and radiation . Pending port removal in next 2 weeks. 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 Lymphedema and scarring PRECAUTIONS: activity as tolerated SOCIAL SUPPORTS: Patient lives with spouse, Kate, 6 children 30 years. Does not smoke. Anddrinks rarely ENVIRONMENT: I at home with out DME PATIENT STATED GOAL: I want to get back to work and doing what I like to do. CURRENT ACTIVITY LEVEL: Active lifestyle and work. 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 PAIN: Occasional knee and back pain from OA reported. No c.o pain. Belly bloating and fullness he had during radiation resolving. Reports improved appetite. FUNCTIONAL LIMITATIONS: On a difficulty scale with 0 being unable to perform an activity, and 10 being able to perform at a pre injury/occurance level 10/10 HAND DOMINANCE: Patient is R hand dominant. CLINICAL FINDINGS: 1) GENERAL OBSERVATION Thin healthy male. Good postural and neck control and AROM noted. Both UE and LE 2) STRENGTH:WNL 3) SKIN/PALPATION: H/O CELLULITIS Fibrotic changes. Hyperpigmentation for radiation. NO hyperplasia, hyperkeratosis, or papillomas noted \ Radiated area warm and fibrotic tissue changes noted. Reviewed S/S of cellulitis. Patient and spouse keeping an eye on. Verbalize understanding to contact PCP or ED if increase in redness/swelling/heat Continues with waxing/waning scrotal edema and edema above pubic bone into lower abdomen 5) LE circumferences (cm) Right 05/31/23 Left 05/31/23 RIGHT 07/07/23 LEFT 07/07/23 RIGHT 08/16/23 Left 08/16/23 Right 09/13/23 Left 09/13/23 RIGHT 10/25/23 LEFT 10/25/23 RIGHT 11/22/23 Left 11/22/23 Mid foot 22.8 23.2 23.3 23.1 22.5 23.6 22.3 23.5 22.3 23.5 22.5 23.5 Ankle 25.4 24 22.8 22.6 24 24.1 23 24.5 25.2 24.4 22.6 26 Calf 33 35.3 35 35.3 31.7 34.8 34.7 35.8 35.5 35.3 35.5 34.6 D 32.3 31.8 32.5 32 33.5 33 33 32.8 32.5 33 32.5 33.2 Knee 35.7 35.5 35.7 36.2 36.8 37.2 36.4 37.5 35.9 36.7 36.2 38.4 Knee +12 45.3 46.8 41.5 45.6 46.7 47 45.2 46 45.9 47.9 46.5 49.7 Upper thigh G 55 53.4 52.3 57 51.2 52 51.5 51.8 51.7 54.2 A-D Length 38 A-G Length 75 32 waist JUZO 20-30 MMhG compression short size II capris Compression bike short. Wearing during the day at times Patient is also using Jobst relax tights 15-20 mmHg footless/footed . He finds these comfortable. And wears these most often. Discussion today about wearing new knee highs (pending delivery and compression short to increase compression at pubis and using scrotal pad to keep scrotal swelling done. Verbalizes understanding. Recs for scrotal swell pad. Patient has been having mild/mod increase in scrotal swelling which hasbeen waxing and waning. Reviewed again with patient for waxing/waning scrotal edema utilizing scrotal compression pads which he has at home. He is reluctant to use. Discussion today regarding concerns for further scrotal swelling. Patient and spouse verbalizes understanding. Patient given channel foam pieces to assist in more comfortable scrotal compression. RECOMMENDED to patient to wear stretchy more breathable athletic pants. He over wears damon jeans which are less breathable and heavy rubbing on incisions. Spouse and patient verbalize understanding.Reviewed again today. Discussion for increase reclining with area open to air over next week to help skin heal from radiation. Discussion regarding not getting overheated. 7) Occasional urinary dribbling. Utilizing pads a needed. CLINICAL EVALUATION AND DIAGNOSIS: Penile Ca with pending Inguinal dissection and CA resection. Patient would benefit from skilled OT/CLT services to address MLD Education and training for self MLD as needed for lymphededema / scrotal edema compression wear including instruction on donning and doffing for post op edema management Education and training for adjunct fluid management as needed post op techniques which may include gu ayleen paddle, rolling, elevation, dry brushing, vibration plate Education and training for edema management, lymphedema risk and risk reduction. Scar management techniques. Clinical presentation: Stable Evolving Unstable X Notes: The patient's rehabilitation potential is [...] management techniques: Rolling. Muscle pump HEP. Elevation 08/16/23 ongoing. 11/22/23 Therapy License Inspector Goals 12 weeks 1. Patient will demonstrate ability to maintain reduction in swelling utilizing all techniques taught. 11/22/23 Patient continues to benefit from MLD every 4-6 weeks to clear out lymph fluid. THERAPEUTIC INTERVENTIONS UTILIZED TODAY: Review education and training for MLD sequence including deep diaphragmatic breathing and deep abdominal lymph node drainage. Full MLD sequence. Edema responds well with increase in comfort reported by patient. Reviewed need for scrotal swell pack. Reviewed importance of wearing regularly Given channel foam pieces to place in compression shorts to assist in scrotal compression. Have ordered thigh high compression stocking for patient to wear under compression sorts as they may be more comfortable. Patient is in agreement with plan as stated. Pending delivery per John today. Patient seen today for progress visit. Patient continues to work on goals as denoted above. OT/CLT services to continue per POC. Patient is in agreement with plan as stated. PLAN: OT/CLT SERVICES 2x/ month x 2 months. Adding or tapering visits as needed. Treatment: manual lymphatic drainage compression bandaging if indicated Exercise- muscle pump HEP teaching self care garment fitting- Bioflex Orly and Jobst compression shorts. Patient alternates. Patient has scrotal swell packs/channel foam to minimize scrotal edema. Patient is also doing well with Jobst relax 15-20 mmHg tights. May benefit from 20-30 compression. Reviewed with patient today. Ordered thigh highcompression to be worn with compression shorts. Pending delivery from [employer]. Adjunct fluid management techniques Charges Minutes OT EVAL LOW (47685) OT EVAL MOD (10794) OT EVAL HIGH (21081) MANUAL THERAPY(63134) 45 SELF CARE/HOME MANAGEMENT (70970) 15 THERAPEUTIC/FUNCTIONAL ACTIVITIES(81046) THEREX NEUROMUSCULAR BINA(00192) THEREX: STRENGTH ROM (72066) Caroline Espinoza, OT/CLT DIAGNOSIS ASSESSMENT [x] Lymphedema, not elsewhere classified [I89.0] Secondary to: penile CA and radiation [] Hereditary/Congenital lymphedema [Q82.0] [] Praecox [] Tarda [] Other: LOCATION OF LYMPHEDEMA [x] Right Leg [x] Left Leg [x] Pelvis/Genitals/Hips/Buttocks [] Abdomen/Trunk [] Other: Date of onset, or duration: 03/18/23 SEVERITY Symptoms and observations from physical exam Stage of Lymphedema: []Stage II [x] Stage III []Other: [] Hyperkeratosis [x] Hyperpigmentation [] Lymphorrhea (weeping) [] Papillomatosis (warts, nodules, papules) [] Elephantiasis [x] Fibrosis [] Pitting edema [x] Recurrent episode(s) of infection/cellulitis [] Pain [] Venous leg ulcers and/or wounds [] Functional impairments to include limited range of motion or impaired mobility [] Other, explain: CONSERVATIVE TREATMENT (CT) INITATION Start date (if different from this visit date): 05/31/23 Conservative treatment plan includes the following activities (check all that apply): [x] Regular exercise [x] Elevation of the limb(s) [x] Compression garment(s) or compression bandage system [x] Compression garments with a minimum of 30 mmHg distally [] Compression bandage system Type: [] Multi-layer short stretch [] Velcro compression wrap(s) [] One-time use pre-packaged bandaging (i.e., Profore, Unna boot, Coban) [] Other: [x] Complete decongestive therapy (CDT) or lymphedema therapy [x] Minimum of 30 minutes daily MLD or self-MLD [x] Diet assessment with modification recommendations [] Other: Has the patient tried an E0651 basic pneumatic compression device? [] Yes [x] No Comments: MEASUREMENTS: SEE MEASUREMENTS EMBEDDED ABOVE Choose at least two anatomical locations. Right Leg Left Leg Ankle cm Ankle cm Calf cm Calf cm Knee cm Knee cm Thigh cm Thigh cm Suprapubic (Hip)* cm Suprapubic (Hip)* cm Umbilicus (Waist)* cm Umbilicus (Waist)* cm *Include measurements if patient presents with lymphedema proximally into the genitals or trunk Other history and clinical information: documented in this encounter Plan of Treatment Upcoming Encounters Date Type Department Care Team (Late st Contact Info) Description 06/07/2024 1:00 PM EST TH Visit (TeleHealth) [place] [address] aZchary Garcia MD [facility] [place] [address] 06/11/2024 9:00 AM EST Office Visit [place] [address] Caroline Espinoza OT 07/10/2024 8:00 AM EST Office [place] [address] Caroline Espinoza OT 07/24/2024 10:00 AM EST Office [place] [address] Caroline Espinoza OT 08/07/2024 10:00 AM EST Office Visit [place] [address] Caroline Espinoza OT 08/21/2024 10:00 AM EST Office Visit [place] [address] Caroline Espinoza OT documented as of this encounter Procedures Procedure Name Priority Date/Time Associated Diagnosis Comments OT PLAN OF CARE CERT/RE-CERT Routine 11/22/2023 11:58 AM EDT Lymphedema 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
--- OUTSIDE RECORDS SUMMARY | 2024-06-04 17:28 | XMS_ITS | Encounter Summary ---
Author Organization [facility] Address [facility] [address] [address] Care Team Providers Care Waste Water Operator Name Role Phone Shannan Arellano APRN Primary Care Provider [phone] Encounter Details Date Type Department Care Team (Latest Contact Info) Description 02/21/2024 Travel Social History Tobacco Use Types Packs/Day Years Used Date Smoking Tobacco: Never Smokeless Tobacco: Never Alcohol Use Standard Drinks/Week Comments Yes 1 (1 standard drink = 0.6 oz pur e alcohol) [facility] Utilities Answer Date Recorded In the past 12 months has th e electric, gas, oil, or water [employer] threatened to shut off services in your [...] PM EST TH Visit (TeleHealth) [place] [address] Zachary Garcia MD [facility] [place] [address] 06/11/2024 9:00 AM EST Office [place] [address] EspinozaTia de la torreyl E, OT 07/10/2024 8:00 AM EST Office [place] [address] Espinoza, Caroline E, OT 07/24/2024 10:00 AM EST Office [place] [address] Espinoza, Caroline E, OT 08/07/2024 10:00 AM EST Office [place] [address] Espinoza, Caroline E, OT 08/21/2024 10:00 AM EST Office [place] [address] Caroline Espinoza, OT documented as of this encounter Visit Diagnoses Not on filedocumented in this encounter Care Teams Waste Water Operator Relationship Specialty Start Date End Date Shannan Arellano, [place] [address] PCP - General Family Medicine 02/03/23 documented as of this encounter
--- OUTSIDE RECORDS SUMMARY | 2024-06-04 17:28 | XMS_ITS | Encounter Summary ---
Author Organization [facility] Address [facility] [address] Care Team Providers Care Hand Miter Operator Name Role Phone Shannan Arellano APRN Primary Care Provider [phone] Encounter Details Date Type Department Care Team (Latest Contact Info) Description 03/20/2024 Travel Social History Tobacco Use Types Packs/Day Years Used Date Smoking Tobacco: Never Smokeless Tobacco: Never Alcohol Use Standard Drinks/Week Comments Yes 1 (1 standard drink = 0.6 oz pur e alcohol) [facility] Utilities Answer Date Recorded In the past 12 months has th e electric, gas, oil, or water [employer] threatened to shut off services in your [...] PM EST TH Visit (TeleHealth) [place] [address] Zachary Garcia MD [facility] [place] [address] 06/11/2024 9:00 AM EST Office Visit [place] [address] EspinozaTia de la torreyl E, OT 07/10/2024 8:00 AM EST Office Visit [place] [address] Espinoza, Caroline E, OT 07/24/2024 10:00 AM EST Office Visit [place] [address] Espinoza, Caroline E, OT 08/07/2024 10:00 AM EST Office Visit [place] [address] Espinoza, Caroline E, OT 08/21/2024 10:00 AM EST Office Visit [place] [address] Caroline Espinoza, OT documented as of this encounter Visit Diagnoses Not on filedocumented in this encounter Care Teams Hand Miter Operator Relationship Specialty Start Date End Date Shannan Arellano, [place] [address] PCP - General Family Medicine 02/03/23 documented as of this encounter
--- OUTSIDE RECORDS SUMMARY | 2024-06-04 17:28 | XMS_ITS | Encounter Summary ---
[place] [address] Care Team Providers Care Brand Ambassadors Promotional Sales Name Role Phone Shannan Arellano GAYLE Primary Care Provider [phone] Reason for Visit * Diagnostic Test (Routine) - Closed Specialty Diagnoses / Procedures Referred By Marry kelsey Referred To Contact Radiology Diagnoses Penile cancer Procedures NM PET CT Skull Base to Mid-thigh Rolly Peters MD [address] [place] [address] [place] [address] [place] [address] Referral ID Status Reason Start Date Expiration Date V isits Requested Visits Authorized [id number] Closed Specialty Service Requested 10/14/2023 04/14/2025 1 1 Encounter Details Date Type Department Care Team (Latest Contact Info) Description 01/11/2024 11:10 AM EDT - 01/11/2024 11:59 PM EDT Hospital Encounter [place] [address] Rolly Peters MD [address] [place] [address] DR RADIATION ONCOLOGY [place], [place] [id number] Discharge Disposition: Home Social History Tobacco Use Types Packs/Day Years Used Date Smoking Tobacco: Never Smokeless Tobacco: Never Alcohol Use Standard Drinks/Week Comments Yes 1 (1 standard drink = 0.6 oz pur e alcohol) [facility] Utilities Answer Date Recorded In the past 12 months has [employer] electric, gas, oil, or water company threatened [...] mouth. 07/27/2023 fluticasone propionate (Flonase) 50 mcg/actuation [place], Suspension by Each Nare route daily. 07/27/2023 oxyCODONE (Roxicodone) 5 mg tablet Take 1 tablet by mouth every 4 hours as needed for Pain (for severe pain not controlled by tylenol/ibuprofen). 5 tablet 06/26/2023 documented as of this encounter Plan of Treatment Upcoming Encounters Date Type Department Care Team (Late st Contact Info) Description 06/07/2024 1:00 PM EST TH Visit (TeleHealth) [place] [address] Zachary Garcia MD [facility] [place] [address] 06/11/2024 9:00 AM EST Office Visit [place] [address] Caroline Espinoza OT 07/10/2024 8:00 AM EST Office Visit [place] [address] Espinoza, Caroline E, OT 07/24/2024 10:00 AM EST Office Visit [place] [address] Espinoza, Caroline E, OT 08/07/2024 10:00 AM EST Office Visit [place] [address] Espinoza, Caroline E, OT 08/21/2024 10:00 AM EST Office Visit [place] [address] Espinoza, Caroline E, OT documented as of this encounter Procedures Procedure Name Priority Date/Time Associated Diagnosis Comments NM PET CT SKULL BASE TO MID-THIGH ([facility]) Routine 01/11/2024 1:06 PM EDT Penile cancer POCT GLUCOSE Routine 01/11/2024 11:24 AM EDT documented in this encounter Results * POCT Glucose (01/11/2024 11:24 AM EDT) Glucose, POC 106 65 - 199 mg/dL [facility] Comment: Supplemental ranges: <140 mg/dL before meals <180 mg/dL all other times of the day Blood 01/11/2024 11:2 4 AM EDT 01/11/2024 11:24 AM EDT Rolly Peters MD POINT OF CARE TEST O RDERABLES [facility] [place] [address] documented in this encounter Visit Diagnoses Not on filedocumented in this encounter Care Teams Brand Ambassadors Promotional Sales Relationship Specialty Start Date End Date Shannan Arellano [place] [address] PCP - General Family Medicine 02/03/23 documented as of this encounter
--- OUTSIDE RECORDS SUMMARY | 2024-06-04 17:28 | XMS_ITS | Encounter Summary ---
Author Organization [facility] Address [facility] [address] Care Team Providers Care Mortgage Collector Name Role Phone Shannan Arellano GAYLE Primary Care Provider [phone] Reason for Visit * Physical Therapy (Routine) - Authorized Specialty Diagnoses / Procedures Referred By Marry kelsey Referred To Contact Physical Therapy Diagnoses Penile cancer Zachary Garcia MD [facility] [place] [address] [facility] [place] [address] Referral ID Status Reason Start Date Expiration Date Visits Requested Visits Authorized [id number] Authorized Evaluate and Treat 05/17/2023 06/15/2024 100 100 Encounter Details Date Type Department Care Team (Late st Contact Info) Description 12/20/2023 9:00 AM EDT Office [place] [address] Caroline Espinoza, OT Lymphedema; Scar; 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 PAIN: Occasional [...] radiation. NO hyperplasia, hyperkeratosis, or papillomas noted Fibrotic tissue changes noted groin, pelvis and upper thigh L>R LE. R LE often having lymphedemathrough to ankle. Reviewed S/S of cellulitis. Patient and spouse keeping an eye on. Verbalize understanding to contact PCP or ED if increase in redness/swelling/heat Continues with waxing/waning scrotal edema and edema above pubic bone into lower abdomen. Continue to encourage daily wearing of compression long shorts or capris with thigh high L LE with scrotal swell pack . 5) LE circumferences (cm) Right 05/31/23 Left 05/31/23 RIGHT 07/07/23 LEFT 07/07/23 RIGHT 2/27/24 Left 08/16/23 Right 09/13/23 Left 09/13/23 RIGHT [...] Length 38 A-G Length 75 32 waist HIPS Patient continues with persistent scrotal and pelvis lymphedema even with follow through with all techniques taught. Utilizing JUZO 20-30 MMhG compression short size II capris Compression bike short. Wearing during the day at times Patient is also using Jobst relax tights 15-20 mmHg footless/footed . He finds these comfortable. And wears these most often. Discussion today about wearing new knee highs (pending delivery and compression capris to increase compression at pubis and using scrotal pad to keep scrotal swelling done. Verbalizes understanding. Recs for scrotal swell pad. Patient has been having mild/mod increase in scrotal swelling which hasbeen waxing and waning. Reviewed again with patient for waxing/waning scrotal edema utilizing scrotal compression pads which he has at home. He continues reluctant to use. Discussion today regarding concerns for further scrotal swelling. Patient and spouse verbalizes understanding. Incisions well healed. CLINICAL EVALUATION AND DIAGNOSIS: Penile Ca with [...] pump HEP. Elevation 08/16/23 ongoing. 11/22/23 Therapy Shelter Goals 12 weeks 1. Patient will demonstrate [...] compression shorts to assist in scrotal compression. Also has information about swell pack for pubis if scrotal swell pack less tolerated. Discussion today re: SCD for le and pelvis/abdomen consistent follow through with current techniques not enough. Education and training for LE muscle pump HEP. Has written information. Patient seen today for progress visit. Patient continues to work on goals as denoted above. OT/CLT services to continue per POC. Patient is in agreement with plan as stated. PLAN: OT/CLT SERVICES 1x/month x 3 months Adding or tapering visits as needed. Treatment: manual lymphatic drainage Exercise- muscle pump HEP teaching self care garment fitting- Bioflex Orly and Jobst compression shorts. Patient alternates. Patient has scrotal swell packs/channel foam to minimize scrotal edema. Patient is also doing well with Jobst relax 15-20 mmHg tights. Adjunct fluid management techniques SCD trial as indicated. Charges Minutes OT EVAL LOW (67474) OT EVAL MOD (61273) OT EVAL HIGH (77886) MANUAL THERAPY(44865) 45 SELF CARE/HOME MANAGEMENT (87682) THERAPEUTIC/FUNCTIONAL ACTIVITIES(62460) THEREX NEUROMUSCULAR BINA(99027) THEREX: STRENGTH ROM (40829) 15 Caroline Espinoza, OT/CLT ADVANCED PNEUMATIC COMPRESSION DEVICE (PCD) EVALUATION: DIAGNOSIS ASSESSMENT [x] Lymphedema, not elsewhere classified [I89.0] Secondary to: [] Hereditary/Congenital lymphedema [Q82.0] [] Praecox [] Tarda [] Other: LOCATION OF LYMPHEDEMA [x] Right Leg [x] Left Leg [x] Pelvis/Genitals/Hips/Buttocks [] Abdomen/Trunk [] Other: Date of onset, or duration: 03/18/23 SEVERITY Symptoms and observations from physical exam Stage of Lymphedema: []Stage II [] Stage III [x]Other [] Hyperkeratosis [x] Hyperpigmentation [] Lymphorrhea (weeping) [] Papillomatosis (warts, nodules, papules) [] Elephantiasis [x] Fibrosis [x] Pitting edema [x] Recurrent episode(s) of infection/cellulitis [] Pain [] Venous leg ulcers and/or wounds [] Functional impairments to include limited range of motion or impaired mobility [] Other, explain: Patient adhered to: Regular use of compression bandage system or compression garment(s)? [x] YES, compression garments with a minimum of 30 mmHg distally [] YES, compression bandage system [...] Patient has used an E0651 basic PCD? [] Yes (complete below questions) [x] No Device make and model: Duration per extremity (hour): [] 1 [] 2 [] Other: Frequency per day: [] 1x [] 2x [] Other: Pressure level (mmHg): [] 30 (low) [] 40 (med) [] 60 (high) Patient has been adherent in their use of an E0651 basic PCD, and I am recommending an E0652 advanced PCD for ongoing treatment of patient's lymphedema [] Yes [] No If yes, was the E0651 basic PCD effective in managing the patient's lymphedema? [] Yes [] No [] N/A Did the patient experience any barriers during use of the E0651 that would prevent them from adhering to the recommended treatment protocol(s)? [] Yes [] No If YES, explain: What changes have occurred in the patient's condition? Describe symptoms that have persisted and/orevolved: Why is the E0651 basic PCD unable [...] in no significant clinical improvement Explain: MEASUREMENTS Choose at least two consecutive anatomical locations in addition to hip and waist. See measurement embedded above. Right Leg Left Leg Ankle cm Ankle [...] PM EST TH Visit (TeleHealth) [place] [address] Zachary Garcia MD [facility] [place] [address] 06/11/2024 9:00 AM EST Office [place] [address] Caroline Espinoza, OT 07/10/2024 8:00 AM EST Office [place] [address] Caroline Espinoza, OT 07/24/2024 10:00 AM EST Office [place] [address] Caroline Espinoza, OT 08/07/2024 10:00 AM EST Office [place] [address] Caroline Espinoza, OT 08/21/2024 10:00 AM EST Office [place] [address] Caroline Espinoza, OT documented as of this encounter Visit Diagnoses Diagnosis Lymphedema Other lymphedema Scar Scar condition and fibrosis of skin 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
--- OUTSIDE RECORDS SUMMARY | 2024-06-04 17:28 | XMS_ITS | Encounter Summary ---
Author Organization [facility] Address [facility] [place] [address] Care Team Providers Care Legal Billing Specialist Name Role Phone Shannan Arellano APRN Primary Care Provider [phone] Encounter Details Date Type Department Care Team (Late st Contact Info) Description 05/29/2024 Plan of Care Documentation [facility] [place] [address] Social History Tobacco Use Types Packs/Day Years Used Date Smoking Tobacco: Never Smokeless Tobacco: Never Alcohol Use Standard Drinks/Week Comments Yes 1 (1 standard drink = 0.6 oz pur e alcohol) [facility] Utilities Answer Date Recorded In [...] place to sleep or slept in a mcc (including now)? No 07/28/2023 IPV Inpatient Questions [...] PM EST TH Visit (TeleHealth) [place] [address] Zachary Garcia MD [facility] [place] [address] 06/11/2024 9:00 AM EST Office [place] [address] Caroline Espinoza, OT 07/10/2024 8:00 AM EST Office [place] [address] Caroline Espinoza, OT 07/24/2024 10:00 AM EST Office [place] [address] Caroline Espinoza, OT 08/07/2024 10:00 AM EST Office [place] [address] Caroline Espinoza, OT 08/21/2024 10:00 AM EST Office [place] [address] Caroline Espinoza, OT documented as of this encounter Visit Diagnoses Not on filedocumented in this encounter Care Teams Legal Billing Specialist Relationship Specialty Start Date End Date Shannan Arellano, CONCIERGE MANAGER [address] [place] [address] PCP - General Family Medicine 02/03/23 documented as of this encounter
--- OUTSIDE RECORDS SUMMARY | 2024-06-04 17:28 | XMS_ITS | Encounter Summary ---
Author Organization [facility] Address [facility] [address] Care Team Providers Care Sign Builder Name Role Phone Shannan Arellano GAYLE Primary Care Provider Reason for Visit * Physical Therapy (Routine) - Authorized Specialty Diagnoses / Procedures Referred By Marry kelsey Referred To Contact Physical Therapy Diagnoses Penile cancer Zachary Garcia MD [facility] [address] [facility] [place] [address] Referral ID Status Reason Start Date Expiration Date Visits Requested Visits Authorized [id number] Authorized Evaluate and Treat 05/17/2023 06/15/2024 100 100 Encounter Details Date Type Department Care Team (Late st Contact Info) Description 04/03/2024 8:00 AM EDT Office [place] [address] Caroline Espinoza, OT Lymphedema Social History Tobacco Use Types Packs/Day Years Used Date Smoking Tobacco: Never Smokeless Tobacco: Never Alcohol Use Standard Drinks/Week Comments Yes 1 (1 standard drink = 0.6 oz pur e alcohol) [facility] Utilities Answer Date Recorded In the past 12 months has [employer], gas, oil, or water company threatened to [...] - Therapy - Caroline Espinoza OT - 04/03/2024 8:00 AM EDTSummary: OT/CLT LE LYMPHEDEMA TREATMENT NOTE OT/CLT LE LYMPHEDEMA PROGRESS NOTE Date of Exam/First treatment: 05/31/23 Date of Onset 03/18/23 Referring Provider: Zachary Garcia MD Diagnosis and pertinent co-morbidities: Penile CA Primary Insurance: Payor: MEDICARE / Plan: MEDICARE PART A & B / Product Type: *No Product type* / Medicare Cert Period: 05/31/23- 08/29/23 08/29/33-11/28/23 11/29/23- 02/27/24 02/28/24- 06/26/24 Penile CA CURRENT HISTORY: Eduardo Contreras is [...] with lymphedema control particularly with his pelvic, trunk and scrotal areas as well as bilateral LE L>R. He would at this point benefit from sequential compression pumps for B LE and pelvis/trunk. Pending with [facility] for follow through. He avinash require advanced pump secondary to pelvic, trunk and abdominal lymphedema/. PRECAUTIONS: activity as tolerated SOCIAL SUPPORTS: Patient lives with spouse, Kate, 6 children 30 years. Does not smoke. Anddrinks rarely ENVIRONMENT: I at home with out DME PATIENT STATED GOAL: I want to get back to work and doing what I like to do. CURRENT ACTIVITY LEVEL: Active lifestyle and work. 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 PAIN: Occasional [...] 05/31/23 Left 05/31/23 RIGHT 08/16/23 Left 08/16/23 Right 09/13/23 Left 09/13/23 RIGHT 11/22/23 Left 11/22/23 Right 01/24/24 Left 01/24/24 Right 02/21/24 LEFT 02/21/24 RIGHT 03/20/24 LEFT 03/20/24 LEFT 04/03/24 Mid foot 22.8 23.2 22.5 23.6 22.3 23.5 22.5 23.5 23 24.7 23 25 22 22.9 23.6 Ankle 25.4 24 24 24.1 23 24.5 22.6 26 23.9 27.1 23.9 27.5 22.1 23.8 24.6 Calf 33 35.3 31.7 34.8 34.7 35.8 35.5 34.6 31.1 35 32 35.5 29.5 35.7 37.5 D 32.3 31.8 33.5 33 33 32.8 32.5 33.2 32.9 35.2 33 35.4 32 34.2 35.2 Knee 35.7 35.5 36.8 37.2 36.4 37.5 36.2 38.4 36.4 41.2 36.5 42.4 35.6 37.6 38.6 Knee +12 45.3 46.8 46.7 47 45.2 46 46.5 49.7 47.1 48.6 47 49.6 45.6 51.4 55 Upper thigh G 55 53.4 51.2 52 51.5 51.8 51.7 54.2 53.6 57.3 52.7 58.2 50.7 57.8 57.5 A-D Length 38 A-G Length 75 Waist 87.5 Hips 95.2 Patient continues with persistent lower abdomen, pelvis lymphedema even with follow through with all techniques taught. Lower abdomen and above pubic area continues firm and fluid filled. Responds positively to MLD sessions. Trialed vibration plate today 10 mins level 7 with muscle pump HEP with positive results. Patient has information on procuring for home use. Utilizing JUZO 20-30 MMhG compression short size II capris. Wearing during the day. Patient is using Jobst relax tights 20-30 mmHg footless/footed . He finds these comfortable. He wears these most often. Continue using scrotal pad to keep scrotal swelling down though encouraged to use with greater consistency. Usually using 3-4 days per week. Verbalizes understanding. Lower abdomen pubic lymphedema has been more persistent. Discussion today regarding utilzing swell pad on pubis if scrotal pad feelslike too much. Patient verbalizes understanding. Scars are mobile and well healed CLINICAL EVALUATION AND DIAGNOSIS: Penile Ca with Inguinal dissection and CA resection. Patient would [...] and risk reduction. Scar management techniques. SCD trial indicated . Order is pending with [facility]. Clinical presentation: Stable Evolving Unstable X X [...] 6. SCD trial. [facility] Pending Therapy Device Sales Consultant Goals 12 weeks 1. Patient will demonstrate [...] of scrotal swell pack. Discussion today re: SCD for le and pelvis/abdomen consistent follow through with current techniques not enough. Referral sent to [facility]. Pending insurance. Education/training with edda escudero paddle. Good return demo. Vibration plate 10 min level 7 with positive results. Patient has information on procuring. Education and training for LE muscle pump [...] 4 weeks. Charges Minutes OT EVAL LOW (22268) OT EVAL MOD (28853) OT EVAL HIGH (99037) MANUAL THERAPY(14003) 45 SELF CARE/HOME MANAGEMENT (67276) THERAPEUTIC/FUNCTIONAL ACTIVITIES(51526) THEREX NEUROMUSCULAR IBNA(43754) THEREX: STRENGTH ROM (51149) 15 Caroline Espinoza, OT/CLT ADVANCED PNEUMATIC COMPRESSION [...] [] Yes (complete below questions) [x] No Did complete trial with good results. Device make and model: Duration per extremity (hour): [] 1 [] 2 [] Other: Frequency per day: [] 1x [] 2x [] Other: Pressure level (mmHg): [] 30 (low) [] 40 (med) [] 60 (high) Patient has been adherent in their use of an E0651 basic PCD, and I am recommending an E0652 advanced PCD for ongoing treatment of patient's lymphedema [] Yes [x] No If yes, was the E0651 basic [...] PM EST TH Visit (TeleHealth) [place] [address] Zachary Garcia MD [facility] [place] [address] 06/11/2024 9:00 AM EST Office [place] [address] Caroline Espinoza OT 07/10/2024 8:00 AM EST Office [place] [address] Caroline Espinoza OT 07/24/2024 10:00 AM EST Office [place] [address] Caroline Espinoza OT 08/07/2024 10:00 AM EST Office [place] [address] Caroline Espinoza OT 08/21/2024 10:00 AM EST Office [place] [address] Caroline Espinoza OT documented as of this encounter Visit Diagnoses Diagnosis Lymphedema Other lymphedema documented in this encounter Care Teams Sign Builder Relationship Specialty Start Date End Date Shannan Arellano, LEDGER [place] [address] PCP - General Family Medicine 02/03/23 documented as of this encounter
--- OUTSIDE RECORDS SUMMARY | 2024-06-04 17:28 | XMS_ITS | Encounter Summary ---
Author Organization [facility] Address [facility] [address] Care Team Providers Care Mail Processing Equipment Mechanic Name Role Phone Shannan Arellano APRN Primary Care Provider [phone] Encounter Details Date Type Department Care Team (Latest Contact Info) Description 01/24/2024 Travel Social History Tobacco Use Types Packs/Day Years Used Date Smoking Tobacco: Never Smokeless Tobacco: Never Alcohol Use Standard Drinks/Week Comments Yes 1 (1 standard drink = 0.6 oz pur e alcohol) [facility] Utilities Answer Date Recorded In the past 12 months has th e electric, gas, oil, or water [employer] threatened to shut off services in your [...] PM EST TH Visit (TeleHealth) [place] [address] Zachary Garcia MD [facility] [place] [address] 06/11/2024 9:00 AM EST Office [place] [address] EspinozaTia de la torreyl E, OT 07/10/2024 8:00 AM EST Office [place] [address] Espinoza, Caroline E, OT 07/24/2024 10:00 AM EST Office [place] [address] Espinoza, Caroline E, OT 08/07/2024 10:00 AM EST Office [place] [address] Espinoza, Caroline E, OT 08/21/2024 10:00 AM EST Office [place] [address] Carolien Espinoza, OT documented as of this encounter Visit Diagnoses Not on filedocumented in this encounter Care Teams Mail Processing Equipment Mechanic Relationship Specialty Start Date End Date Shannan Arellano, RESIDENCE [place] [address] PCP - General Family Medicine 02/03/23 documented as of this encounter
--- OUTSIDE RECORDS SUMMARY | 2024-06-04 17:28 | XMS_ITS | Encounter Summary ---
Author Organization [facility] Address [facility] [address] Care Team Providers Care Dining Services Director Name Role Phone Shannan Arellano APRN Primary Care Provider [phone] Encounter Details Date Type Department Care Team (Late st Contact Info) Description 03/19/2024 [place] [address] Marline Goetz RN Social History Tobacco Use Types Packs/Day Years Used Date Smoking Tobacco: Never Smokeless Tobacco: Never Alcohol Use Standard Drinks/Week Comments Yes 1 (1 standard drink = 0.6 oz pur e alcohol) [facility] Utilities Answer Date Recorded In [...] in a snf (including now)? No 07/28/2023 IPV Inpatient Questions [...] encounter Miscellaneous Notes * Telephone Encounter - Marline Goetz RN - 03/19/2024 11:53 AM EDT Copied from [facility] #[id number]. Topic: Specialty Dept CRMs - Form Status >> Mar 19, 2024 11:25 AM Laurel Hernandez wrote: Form Status Request Specialist Urology Relationship (if other than patient-full name): Molly - [facility] Type of Form/Paperwork: Prescription request How Was Form/Paperwork Given to Office: Faxed Date Form/Paperwork was Sent to Office: 03/07/24 Fax form to [phone] Patient Informed, completion of this request can take 5-7 business days. documented in this encounter Plan of Treatment Upcoming Encounters Date Type Department Care Team (Late st Contact Info) Description 06/07/2024 1:00 PM EST TH Visit (TeleHealth) [place] [address] Zachary Garcia MD [facility] [place] [address] 06/11/2024 9:00 AM EST Office [place] [address] Espinoza, Caroline E, OT 07/10/2024 8:00 AM EST Office [place] [address] Espinoza, Caroline E, OT 07/24/2024 10:00 AM EST Office [place] [address] Espinoza, Caroline E, OT 08/07/2024 10:00 AM EST Office [place] [address] Espinoza, Caroline E, OT 08/21/2024 10:00 AM EST Office [place] [address] Espinoza, Caroline E, OT documented as of this encounter Visit Diagnoses Not on filedocumented in this encounter Care Teams Dining Services Director Relationship Specialty Start Date End Date Shannan Arellano, FOOD [place] [address] PCP - General Family Medicine 02/03/23 documented as of this encounter
--- OUTSIDE RECORDS SUMMARY | 2024-06-04 17:28 | XMS_ITS | Encounter Summary ---
Author Organization [facility] Address [facility] [place] [address] Care Team Providers Care Financial Planning Adviser Name Role Phone Shannan Arellano APRN Primary Care Provider [phone] Encounter Details Date Type Department Care Team (Latest Contact Info) Description 11/18/2023 Travel Social History Tobacco Use Types Packs/Day Years Used Date Smoking Tobacco: Never Smokeless Tobacco: Never Alcohol Use Standard Drinks/Week Comments Yes 1 (1 standard drink = 0.6 oz pur e alcohol) [facility] Utilities Answer Date Recorded In the past 12 months has th e electric, gas, oil, or water [employer] threatened to shut off services in [...] a care home (including now)? No 07/28/2023 IPV Inpatient [...] PM EST TH Visit (TeleHealth) [place] [address] Zachary Garcia MD [facility] [place] [address] 06/11/2024 9:00 AM EST Office [place] [address] EspinozaTia de la torreyl E, OT 07/10/2024 8:00 AM EST Office [place] [address] Espinoza, Caroline E, OT 07/24/2024 10:00 AM EST Office [place] [address] Espinoza, Caroline E, OT 08/07/2024 10:00 AM EST Office [place] [address] Espinoza, Caroline E, OT 08/21/2024 10:00 AM EST Office [place] [address] Caroline Espinoza, OT documented as of this encounter Visit Diagnoses Not on filedocumented in this encounter Care Teams Financial Planning Adviser Relationship Specialty Start Date End Date Shannan Arellano, SENIOR [place] [address] PCP - General Family Medicine 02/03/23 documented as of this encounter
--- OUTSIDE RECORDS SUMMARY | 2024-06-04 17:28 | XMS_ITS | Encounter Summary ---
Author Organization [facility] [address] Care Team Providers Care Sales Service Rep Name Role Phone Shannan Arellano APRN Primary Care Provider [phone] Encounter Details Date Type Department Care Team (Late st Contact Info) Description 11/04/2023 Orders Only Radiation Oncology at [address] [address] Rolly Peters MD [address] [place] [address] [place] [address] Social History Tobacco Use Types Packs/Day Years [...] in a correction (including now)? No 07/28/2023 IPV Inpatient Questions [...] PM EST TH Visit (TeleHealth) [place] [address] Zachary Garcia MD [facility] [place] [address] 06/11/2024 9:00 AM EST Office [place] [address] Caroline Espinoza, OT 07/10/2024 8:00 AM EST Office [place] [address] Caroline Espinoza, OT 07/24/2024 10:00 AM EST Office [place] [address] Caroline Espinoza, OT 08/07/2024 10:00 AM EST Office [place] [address] Caroline Espinoza OT 08/21/2024 10:00 AM EST Office [place] [address] Caroline Espinoza OT documented as of this encounter Visit Diagnoses Not on filedocumented in this encounter Care Teams Sales Service Rep Relationship Specialty Start Date End Date Shannan Arellano, FLYING [place] [address] PCP - General Family Medicine 02/03/23 documented as of this encounter
--- OUTSIDE RECORDS SUMMARY | 2024-06-04 17:28 | XMS_ITS | Encounter Summary ---
Author Organization [facility] [address] Care Team Providers Care Heating Element Winder Name Role Phone Shannan Arellano APRN Primary Care Provider [phone] Encounter Details Date Type Department Care Team (Late st Contact Info) Description 11/18/2023 Telephone Urology [facility] [place] [address] Peter Hahn MD [facility] [place] [address] Social History Tobacco Use Types Packs/Day Years Used Date Smoking Tobacco: Never Smokeless Tobacco: Never Alcohol Use Standard Drinks/Week Comments Yes 1 (1 standard drink = 0.6 oz pur e alcohol) [facility] Utilities Answer Date Recorded In [...] encounter Miscellaneous Notes * Telephone Encounter - Peter Hahn MD - 11/18/2023 5:58 PM EDT Spoke with patient regarding Eliquis prescription. Per last note by Dr. Garcia on 08/11/23 patient to continue for 3 months. He should not require more Eliquis as he just ran out. documented in this encounter Plan of Treatment Upcoming Encounters Date Type Department Care Team (Late st Contact Info) Description 06/07/2024 1:00 PM EST TH Visit (TeleHealth) [place] [address] Zachary Garcia MD [facility] [place] [address] 06/11/2024 9:00 AM EST Office Visit Occupational [place] [address] Caroline Espinoza, OT 07/10/2024 8:00 AM EST Office Visit Occupational [place] [address] Espinoza, Caroline E, OT 07/24/2024 10:00 AM EST Office Visit Occupational [place] [address] Espinoza, Caroline E, OT 08/07/2024 10:00 AM EST Office Visit Occupational [place] [address] Espinoza, Caroline E, OT 08/21/2024 10:00 AM EST Office Visit Occupational [place] [address] Espinoza, Caroline E, OT documented as of this encounter Visit Diagnoses Not on filedocumented in this encounter Care Teams Heating Element Winder Relationship Specialty Start Date End Date Shannan Arellano, ELECTROCHE[place] [address] PCP - General Family Medicine 02/03/23 documented as of this encounter
--- OUTSIDE RECORDS SUMMARY | 2024-06-04 17:28 | XMS_ITS | Encounter Summary ---
Author Organization [facility] Address [facility] [address] Care Team Providers Care Radon Inspector Name Role Phone Shannan Arellano GAYLE Primary Care Provider [phone] Encounter Details Date Type Department Care Team (Late st Contact Info) Description 01/25/2024 [place] [address] Zo Arboleda RN Social History Tobacco Use Types Packs/Day Years Used Date Smoking Tobacco: Never Smokeless Tobacco: Never Alcohol Use Standard Drinks/Week Comments Yes 1 (1 standard drink = 0.6 oz pur e alcohol) [facility] Utilities Answer Date Recorded In [...] to sleep or slept in a senior living (including now)? No 07/28/2023 DH IPV Inpatient [...] Progress Notes * Zo Arboleda RN - 01/25/2024 10:07 AM EDT Call returned to patient's Sylvie, reviewed recommendation per Dr. Garcia. Sylvie reports that patient is not experiencing pain, redness or warmth to CARIN, he did appear to be SOB when putting on his compression stockings this AM. Sylvie will call Vascular to schedule US, she agreed to call back if he is not able to be scheduled today. documented in this encounter Miscellaneous Notes * Telephone Encounter - Zo Arboleda RN - 01/25/2024 10:05 AM EDT Copied from CRM #[id number]. Topic: Specialty Dept CRMs - Generic Call >> Jan 25, 2024 9:48 AM Ganesh Zhang wrote: Specialist: Unknown Relationship (if other than patient-full name): Sylvie, spouse Reason for Call: Patient's spouse Sylvie called back in response to vm. Please call patient to assist. documented in this encounter Plan of Treatment Upcoming Encounters Date Type Department Care Team (Late st Contact Info) Description 06/07/2024 1:00 PM EST TH Visit (TeleHealth) [place] [address] Zachary Garcia MD [facility] [place] [address] 06/11/2024 9:00 AM EST Office Visit [place] [address] Espinoza, Caroline E, OT 07/10/2024 8:00 AM EST Office [place] [address] Espinoza, Caroline E, OT 07/24/2024 10:00 AM EST Office [place] [address] Espinoza, Caroline E, OT 08/07/2024 10:00 AM EST Office [place] [address] Espinoza, Caroline E, OT 08/21/2024 10:00 AM EST Office [place] [address] Espinoza, Caroline E, OT documented as of this encounter Visit Diagnoses Not on filedocumented in this encounter Care Teams Radon Inspector Relationship Specialty Start Date End Date Shann[place] [address] PCP - General Family Medicine 02/03/23 documented as of this encounter
--- OUTSIDE RECORDS SUMMARY | 2024-06-04 17:28 | XMS_ITS | Encounter Summary ---
Author Organization [facility] Address [facility] [place] [address] Care Team Providers Care Child Care Cook Name Role Phone Shannan Arellano APRN Primary Care Provider [phone] Reason for Visit * Reason Onset Date Comments Medication Refill 11/18/2023 Encounter Details Date Type Department Care Team (Late st Contact Info) Description 11/18/2023 Telephone Urology at [facility] [place] [address] Zachary Garcia MD [facility] [place] [address] Medication Refill Social History Tobacco Use Types Packs/Day Years Used Date Smoking Tobacco: Never Smokeless Tobacco: Never Alcohol Use Standard Drinks/Week Comments Yes 1 (1 standard drink = 0.6 oz pur e alcohol) [facility] Utilities Answer Date Recorded In [...] medical appointments or from getting medications? No 02/0 01/2024 In the past 12 months, has [...] encounter Miscellaneous Notes * Telephone Encounter - Alexia Sanchez Natalia - 11/18/2023 1:09 PM EDT Patient was not aware that this medication was supposed to continue. Please send appropriate amountof refills to pharmacy. Patient has not medication in over a week. NAME OF MEDICATION AND DOSE: apixaban (Eliquis) 5 mg tablet Take 1 tablet by mouth 2 times daily., Historical Med - dose and frequency as stated in medication list. PHARMACY NAME:[facility] P: [phone] PHARMACY PHONE: [phone] Would patient like script sent directly to pharmacy? (Yes or no) yes Would patient like to corn picker paper script here at our office (Please put yes or no) no Would patient like paper script mailed to home address (Please put yes or no) no Patient did not have a pill to take this morning. Sylvie wants to be sure its ok patient missed a dose and asked if this can be called in today so he doesn't miss anymore. Caller/Patient aware of 1-2 business day process. documented in this encounter Plan of Treatment Upcoming Encounters Date Type Department Care Team (Late st Contact Info) Description 06/07/2024 1:00 PM EST TH Visit (TeleHealth) [place] [address] [facility] [place] [address] 06/11/2024 9:00 AM EST Office [place] [address] Espinoza, Caroline E, OT 07/10/2024 8:00 AM EST Office [place] [address] Espinoza, Caroline E, OT 07/24/2024 10:00 AM EST Office [place] [address] Espinoza, Caroline E, OT 08/07/2024 10:00 AM EST Office [place] [address] Espinoza, Caroline E, OT 08/21/2024 10:00 AM EST Office [place] [address] Espinoza, Caroline E, OT documented as of this encounter Visit Diagnoses Not on filedocumented in this encounter Care Teams Child Care Cook Relationship Specialty Start Date End Date Shannan Arellano, PHOTOENG[place] [address] PCP - General Family Medicine 02/03/23 documented as of this encounter
--- OUTSIDE RECORDS SUMMARY | 2024-06-04 17:28 | XMS_ITS | Encounter Summary ---
Author Organization Replaced By [facility] Address [facility] [place] [address] Care Team Providers Care Lumber Stacker Operator Name Role Phone Shannan Arellano APRN Primary Care Provider [phone] Encounter Details Date Type Department Care Team (Latest Contact Info) Description 01/11/2024 Travel Social History Tobacco Use Types Packs/Day Years Used Date Smoking Tobacco: Never Smokeless Tobacco: Never Alcohol Use Standard Drinks/Week Comments Yes 1 (1 standard drink = 0.6 oz pur e alcohol) [facility] Utilities Answer Date Recorded In the past 12 months has th e electric, gas, oil, or water [email or web address] threatened to shut off services in your [...] PM EST TH Visit (TeleHealth) [place] [address] Zachary Garcia MD [facility] [place] [address] 06/11/2024 9:00 AM EST Office Visit [place] [address] EspinozaTia de la torreyl E, OT 07/10/2024 8:00 AM EST Office Visit [place] [address] Espinoza, Caroline E, OT 07/24/2024 10:00 AM EST Office [place] [address] Espinoza, Caroline E, OT 08/07/2024 10:00 AM EST Office [place] [address] Espnioza, Caroline E, OT 08/21/2024 10:00 AM EST Office [place] [address] Caroline Espinoza, OT documented as of this encounter Visit Diagnoses Not on filedocumented in this encounter Care Teams Lumber Stacker Operator Relationship Specialty Start Date End Date Shannan Arellano, FIRE CONTROL [place] [address] PCP - General Family Medicine 02/03/23 documented as of this encounter
--- OUTSIDE RECORDS SUMMARY | 2024-06-04 17:28 | XMS_ITS | Encounter Summary ---
Author Organization [facility] Address [facility] [address] Care Team Providers Care Epic Cupid Specialists Name Role Phone Shannan Arellano GAYLE Primary Care Provider [phone] Encounter Details Date Type Department Care Team (Late st Contact Info) Description 04/03/2024 [place] [phone] Zo Arboleda RN Social History Tobacco Use [...] Progress Notes * Zo Arboleda RN - 04/03/2024 7:16 AM EDT Office notes faxed to number provided below. documented in this encounter Miscellaneous Notes * Telephone Encounter - Zo Arboleda RN - 04/03/2024 7:12 AM EDT Copied from [facility] #[id number]. Topic: Specialty Dept CRMs - Form Status >> Apr 02, 2024 8:14 AM Alyce Alonso wrote: Form Status Request Specialist Radha Relationship (if other than patient-full name): Niya Estrada Medical Type of Form/Paperwork: last office visit notes How Was Form/Paperwork Given to Office: Faxed Date Form/Paperwork was Sent to Office: 03/28/2024 phone [phone] fax Patient Informed, completion of this request can take 5-7 business days. documented in this encounter Plan of Treatment Upcoming Encounters Date Type Department Care Team (Late st Contact Info) Description 06/07/2024 1:00 PM EST TH Visit (TeleHealth) [place] [address] Zachary Garcia MD [facility] [address] 06/11/2024 9:00 AM EST Office Visit [place] [address] Espinoza, Caroline E, OT 07/10/2024 8:00 AM EST Office Visit [place] [address] Espinoza, Caroline E, OT 07/24/2024 10:00 AM EST Office [place] [address] Espinoza, Caroline E, OT 08/07/2024 10:00 AM EST Office Visit [place] [address] Espinoza, Caroline E, OT 08/21/2024 10:00 AM EST Office [place] [address] Espinoza, Caroline E, OT documented as of this encounter Visit Diagnoses Not on filedocumented in this encounter Care Teams Epic Cupid Specialists Relationship Specialty Start Date End Date Shannan Arellano, [place] [address] PCP - General Family Medicine 02/03/23 documented as of this encounter
--- OUTSIDE RECORDS SUMMARY | 2024-06-04 17:28 | XMS_ITS | Encounter Summary ---
Author Organization [facility] Address [facility] [place] [address] Care Team Providers Care Isotope Technologist Name Role Phone Shannan Arellano APRN Primary Care Provider [phone] Encounter Details Date Type Department Care Team (Late st Contact Info) Description 01/16/2024 Telephone Radiation Oncology at [facility] [place] [address] Noemy Mallory MD [facility] [place] [address] Social History Tobacco Use Types Packs/Day Years [...] in a halfway (including now)? No 07/28/2023 DH IPV Inpatient [...] encounter Miscellaneous Notes * Telephone Encounter - Noemy Mallory MD - 01/16/2024 11:10 AM EDT Images from the original note were not included. 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 He is received adjuvant chemoradiation to the pelvis and groins where he had 3 involved LNs (all on the left side) completed10/17/23. I am calling him today to discuss PET/CT results from 01/11/24. INTERVAL SUBJECTIVE HISTORY: Since last seen, reports no overall changes to his health status. INTERVAL OBJECTIVE HISTORY: 01/11/24 PET/CT: IMPRESSION 1. Small focus of uptake in the base of the penis/penile urethra is nonspecific, favored to be inflammatory. Attention on follow-up. 2. Resolution of previously seen bilateral inguinal fluid collections which were mildly avid along the periphery. ASSESSMENT / PLAN: I relayed the results of his most recent PET/CT which showed a good response, though there is smallamount of non-specific uptake in the base of the penis. Eduardo understands that these results likelyreflect inflammation, but that we will continue to monitor this area. Edaurdo thinks he's supposed to follow-up with Dr. Garcia in January 2024, but doesn't currently have an appointment. I will reach out to Dr. Garcia to confirm urology follow-up. Dr. Peters is currently out of office, but I will confirm on his return regarding follow-up in the radiation oncology department. Eduardo is agreeable to this plan and all of his questions were answered to his fullest satisfaction, and we have provided him with our contact information should any further questions or concerns arise. Son Mallory MD, MS PGY5 documented in this encounter Plan of Treatment Upcoming Encounters Date Type Department Care Team (Late st Contact Info) Description 06/07/2024 1:00 PM EST TH Visit (TeleHealth) [place] [address] Zachary Garcia MD [facility] [place] [place] [address] 06/11/2024 9:00 AM EST Office Visit [place] [address] Caroline Espinoza, OT 07/10/2024 8:00 AM EST Office Visit [place] [address] Caroline Espinoza, OT 07/24/2024 10:00 AM EST Office Visit [place] [address] Caroline Espinoza, OT 08/07/2024 10:00 AM EST Office Visit [place] [address] Caroline Espinoza OT 08/21/2024 10:00 AM EST Office Visit [place] [address] Caroline Espinoza OT documented as of this encounter Visit Diagnoses Not on filedocumented in this encounter Care Teams Isotope Technologist Relationship Specialty Start Date End Date Shannan Arellano, TAP OUT OPERATOR [facility] [place] [address] PCP - General Family Medicine 02/03/23 documented as of this encounter
--- OUTSIDE RECORDS SUMMARY | 2024-06-04 17:28 | XMS_ITS | Encounter Summary ---
Author Organization [facility] [place] [address] Care Team Providers Care Asphalt Paver Operator Name Role Phone Shannan Arlelano GAYLE Primary Care Provider [phone] Reason for Referral * Diagnostic Test (Routine) - Closed Specialty Diagnoses / Procedures Referred By Marry t Referred To Contact Diagnoses Penile cancer Procedures Duplex Study for DVT, Bilat legs Shelbie Garcia MD [facility] [place] [address] [facility] [address] [place] [address] Referral ID Status Reason Start Date Expiration Date V isits Requested Visits Authorized [id number] Closed Specialty Service Requested 01/24/2024 01/23/2025 1 1 Encounter Details Date Type Department Care Team (Late st Contact Info) Description 01/24/2024 [place] [address] Zo Arboleda, RN Social History Tobacco Use Types Packs/Day Years Used Date Smoking Tobacco: Never Smokeless Tobacco: Never Alcohol Use Standard Drinks/Week Comments Yes 1 (1 standard drink = 0.6 oz pur e alcohol) [facility] Utilities Answer Date Recorded In the past 12 months has [employer] electric, gas, oil, or water company threatened [...] place to sleep or slept in a group home (including now)? No 07/28/2023 DH IPV [...] Notes * Zo Arboleda RN - 01/25/2024 9:27 AM EDT Call placed to patient on mobile and call placed to patient's , no answer, LVM requesting a call back. Patient will need to go to Vascular for a bilat. Duplex study to assess for DVT. * Zo Arboleda RN - 01/24/2024 5:01 PM EDT Call returned to patient, no answer, LVM to return call to clinic. Background: Per last office visit with Dr. 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 With negative margins 3/13 pelvic nodes positive. Doing well Plan: Complete Levaquin Continue Eliquis 3 months Await PET. OK to proceed with chemo XRT in 1-2 weeks if groins stable. I will see in 3-4 months after he has completed his chemo XRT. documented in this encounter Miscellaneous Notes * Addendum Note - Shelbie Garcia MD - 01/24/2024 5:40 PM EDTAddended by: SHELBIE GARCIA on: 01/24/2024 05:40 PM Modules accepted: Orders * Telephone Encounter - Zo Arboleda RN - 01/24/2024 4:55 PM EDT Copied from [facility] #[id number]. Topic: Specialty Dept CRMs - Triage >> Jan 24, 2024 3:53 PM Laurel Hernandez wrote: Triage Message Specialist: Urology Relationship (if other than patient-full name): Sylvie - Symptom: Swelling from hip down the leg, mainly on left side but some on right. Has patient experienced symptom before No If patient has experienced symptom before, when was the last time this occurred Is patient currently having symptom : Yes When did symptom begin : After surgery in June Additional Comments: Sylvie states the patient had Physical Therapy today, and the physical therapist thought the patient should see Dr. Chinchilla to make sure there was nothing else going on. AVS for 2/ states - I will see in 3-4 months after he has completed his chemo XRT, and patient finished Chemo at the end of December. documented in this encounter Plan of Treatment Upcoming Encounters Date Type Department Care Team (Late st Contact Info) Description 06/07/2024 1:00 PM EST TH Visit (TeleHealth) [place] [address] Shelbie Garcia MD [facility] DR UROLOGY [place] [id number] 06/11/2024 9:00 AM EST Office Visit [place] [address] Espinoza, Caroline E, OT 07/10/2024 8:00 AM EST Office Visit [place] [address] Espinoza, Caroline E, OT 07/24/2024 10:00 AM EST Office [place] [address] Espinoza, Caroline E, OT 08/07/2024 10:00 AM EST Office Visit [place] [address] Espinoza, Caroline E, OT 08/21/2024 10:00 AM EST Office [place] [address] Espinoza, Caroline E, OT documented as of this encounter Results * Duplex Study for DVT, Bilat legs (01/25/2024 2:07 PM EDT) Pathologist [facility] Text Report Department: Vascular Surgery Lab Patient: [id number] (EBONY CONTRERAS) CPT: [id number] Referring Physician: SHELBIE GARCIA ?? Indications: Bilateral LE swelling L>R. Hx of lymph nodes removed. ? DVT Findings: RIGHT: Patent common femoral vein and popliteal vein with spontaneous, respirophasic Doppler waveforms that respond normally to augmentation maneuvers. The common femoral vein, saphenofemoral junction, femoral vein through the thigh and popliteal vein are fully compressible. Patent posterior tibial and peroneal veins with no evidence of thrombus. LEFT: Patent common femoral vein and popliteal vein with spontaneous, respirophasic Doppler waveforms that respond normally to augmentation maneuvers. The common femoral vein, saphenofemoral junction, femoral vein through the thigh and popliteal vein are fully compressible. Patent posterior tibial and peroneal veins with no evidence of thrombus. Interpretation: RIGHT: ??No evidence of lower extremity deep venous thrombosis. LEFT: ??No evidence of lower extremity deep venous thrombosis. Comparison: ?? No previous study in our vascular lab database for comparison. Electronically Signed by: WENDY MANRIQUE on 2024-01-31 08:16:47 AM [facility] VB Text Report End of Report [facility] 01/25/2024 2:07 PM EDT Shelbie Garcia MD VASCULAR ORDERABLES Performing Organization Address City/State/[facility] Co de Phone Number [facility] documented in this encounter Visit Diagnoses Diagnosis Penile cancer- Primary Malignant neoplasm of penis, part unspecified documented in this encounter Care Teams Asphalt Paver Operator Relationship Specialty Start Date End Date Shannan Arellano, SKYDIVING INSTRUCTOR [place] [address] PCP - General Family Medicine 02/03/23 documented as of this encounter
--- OUTSIDE RECORDS SUMMARY | 2024-06-04 17:28 | XMS_ITS | Encounter Summary ---
Author Organization Replaced By [facility] [place] [address] Care Team Providers Care Broadcast Operations Engineer Name Role Phone Shannan Arellano GAYLE Primary Care Provider [phone] Reason for Referral * Diagnostic Test (Routine) - Closed Specialty Diagnoses / Procedures Referred By Marry kelsey Referred To Contact Radiology Diagnoses Penis cancer Procedures NM PET CT Skull Base to Mid-thigh Shelbie Garcia MD [facility] [place] [address] [place] [address] Referral ID Status Reason Start Date Expiration Date V isits Requested Visits Authorized [id number] Closed Specialty Service Requested 03/16/2024 09/13/2025 1 1 Encounter Details Date Type Department Care Team (Late st Contact Info) Description 03/16/2024 10:00 AM EDT [place] [id number] Shelbie Garcia MD [facility] [address] Penis cancer (Primary Dx) Social History Tobacco Use Types Packs/Day Years Used Date Smoking Tobacco: Never Smokeless Tobacco: Never Alcohol Use Standard Drinks/Week Comments Yes 1 (1 standard drink = 0.6 oz pur e alcohol) [facility] Utilities Answer Date Recorded In the past 12 months has [employer], gas, oil, or water company threatened to [...] place to sleep or slept in a retirement (including now)? No 07/28/2023 DH IPV Inpatient [...] Sign Reading Time Taken Comments Blood Pressure 104/65 03/16/2024 9:52 AM EDT Pulse 53 03/16/2024 9:52 AM EDT Temperature - - Respiratory Rate - - Oxygen Saturation - - Inhaled Oxygen Concentration - - Weight - - Height - - Body Mass Index - - documented in this encounter Progress Notes * Shelbie Garcia MD - 03/16/2024 10:00 AM EDT Images from the original note were not included. Patient Name: Eduardo Contreras Date of Service: 03/16/2024 Primary Care Provider: Shannan Arellano APRN Reason for Visit: Eduardo Contreras is a 73 y.o. male who is referred Dr. 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 ~ 1 year ago He started to void spraying and noticed a lump about 3 months 01/03/2023 Cyto/urethral dilitation/Bx 05/09/2023 Cystoscopy/penile biopsy/groin FNA Path Invasive carcinoma with squamoid features. LEFT Groin node FNA Positive 06/24/2023 Local excision and penile glans reconstruction/neomeatus/ Bilateral Groin dissection Left lap pelvic node dissection Path: [id number] poorly differentiated penile cancer 4/10 Left inguinal and 3/13 Left pelvic nodes. 0/8 Right nodes. Margins Negative (to be confirmed at tumor board review) Negative urethroscopy. distal penile mass, ventral aspect of glans and distal aspect of urethra resected with remaining penis reconstructed. Frozen section Margins negative Bilateral inguinal lymph node dissection with sartorius muscle flap bilaterally. Palpable left inguinal lymph nodes. Right inguinal lymph node frozen sections negative. Laparoscopic pelvic lymph node dissection on the left performed. Following the surgery he did well and was discharged with drains in place on Keflex 06/26/2022. He was readmitted on 07/19/2023 for undrained collections and SSI. Discharged on 07/21/23 with Levaquin and 4 total drains. 08/03/2023 All drains removed. 10/17/2023 Completed 54GY of XRT He sees Lanny Espinoza OT for his lymphodema Currently Past Medical History: None Past Surgical History: None Medications: Reviewed Allergies: Reviewed Family History: There is no family history of Penile issues. Father ASCVD. 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 The patient has been for 30 years with 6 children (between them) . The patient drinks rarely Tobacco: Never. Systems review: He can walk a mile. Physical Exam: Looks well Penis some odema, Unable to expose remains of glans, but no palpable masses. No palpable masses on the shaft. Groin look good. Some bilateral induration over area of sarorius flap on both Right and Left. A little more prominent on Left. No fluid collections. No cellulitis. Labs 07/21/2023 Hb 12.2, Plts 169, Cr 1.02, X-rays 04/22/2023 MR Groin IMPRESSION 1. Mass of the distal corpus spongiosum, 1.2 cm. No invasion of the corpora cavernosa or glans penis, within the limitations of image quality. 2. Suspicious left inguinal lymph nodes, largest 1.4 cm. 06/21/2023 PET IMPRESSION 1. Mana metastases in the left inguinal, left distal external iliac, and left anterior obturator regions. 2. No distant sites of metastasis. 3. The primary malignancy in the distal urethra is not evident on this exam, likely due to its small size and location. 12/2023 PET IMPRESSION 1. Small focus of uptake in the base of the penis/penile urethra is nonspecific, favored to be inflammatory. Attention on follow-up. 2. Resolution of previously seen bilateral inguinal fluid collections which were mildly avid along the periphery. 01/25/2024 Duplex negative Tumor Board 07/14/2022 Discussion Radiology: Positive left inguinal and left external iliac lymph nodes seen on PET. 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 Positive nodes - 7 total. No evidence of extra-mana disease. Rad Onc: Would recommend adjuvant chemoRT with treatment of surgical bed as well due to HPV relateddisease. Recommendation Recommend referral for discussion with patient of adjuvant chemoRT with treatment of the surgical bed. Impression: [id number] poorly diff penile cancer sp local excision and bilateral node dissection. With negative margins 08/30 pelvic nodes positive 06/2023. Sp adjuvant XRT 09/2023 ANDRE Doing well Plan: 3 months for exam and CMP PET All questions were answered documented in this encounter Miscellaneous Notes * Addendum Note - Shelbie Garcia MD - 03/16/2024 10:00 AM EDTAddended by: SHELBIE GARCIA on: 03/16/2024 11:25 AM Modules accepted: Orders documented in this encounter Plan of Treatment Upcoming Encounters Date Type Department Care Team (Late st Contact Info) Description 06/07/2024 1:00 PM EST TH Visit (TeleHealth) [place] [address] Shelbie Garcia MD [facility] [place] [place] [address] 06/11/2024 9:00 AM EST Office Visit [place] [address] Espinoza, Caroline E, OT 07/10/2024 8:00 AM EST Office [place] [address] Espinoza, Caroline E, OT 07/24/2024 10:00 AM EST Office [place] [address] Espionza, Caroline E, OT 08/07/2024 10:00 AM EST Office [place] [address] Espinoza, Caroline E, OT 08/21/2024 10:00 AM EST Office [place] [address] Espinoza, Caroline E, OT Scheduled Orders Name Type Priority Associated Diagnoses Orde r Schedule Comprehensive metabolic panel Non-fasting Lab Routine Penis cancer Expected: 06/15/2024 (Approximate), Expires: 03/16/2025 documented as of this encounter Results * NM PET CT Skull Base to Mid-thigh (06/01/2024 11:05 AM EST) WORKSTATION ID [id number] RAD Anatomical Region Laterality Modality Positron Emissio [...] who have questions please contact the health day care worker that requested your imaging first. ? Electronically signed by: Alfredo Everett MD, [facility] ([phone]), at 06/04/2024 4:10 PM Narrative 06/04/2024 4:10 PM EST EXAMINATION: NM PET CT STANDARD SKULL BASE TO MID-THIGH CLINICAL HISTORY: Hx of Node positive penile cancer sp node dissection and XRT C60.9, Malignant neoplasm of penis, unspecified TECHNIQUE: Following IV injection of 55-pkytjj-4-deoxyglucose (FDG) a standard uptake of approximately 60 [...] penis, unspecified TECHNIQUE: Following IV injection of 57-sxfrvu-6-deoxyglucose (FDG) astandard uptake of approximately 60 minutes, [...] patients who have questions please contactthe health day care worker that requested your imaging first. Electronically signed by: Alfredo Everett MD, [facility]([phone]), at 06/04/2024 4:10 PM Shelbie Garcia MD IMG PET ORDERABLES documented in this encounter Visit Diagnoses Diagnosis Penis cancer- Primary Malignant neoplasm of penis, part unspecified Penis cancer Malignant neoplasm of penis, part unspecified documented in this encounter Care Teams Broadcast Operations Engineer Relationship Specialty Start Date End Date Shannan Arellano, CERTIFIED ORTHOTIST/PEDORTHIST [place] [address] PCP - General Family Medicine 02/03/23 documented as of this encounter
--- OUTSIDE RECORDS SUMMARY | 2024-06-04 17:28 | XMS_ITS | Encounter Summary ---
Author Organization [facility] Address [facility] [address] Care Team Providers Care Aeronautical Test Engineer Name Role Phone Shannan Arellano APRN Primary Care Provider [phone] Encounter Details Date Type Department Care Team (Latest Contact Info) Description 12/20/2023 Travel Social History Tobacco Use Types Packs/Day Years Used Date Smoking Tobacco: Never Smokeless Tobacco: Never Alcohol Use Standard Drinks/Week Comments Yes 1 (1 standard drink = 0.6 oz pur e alcohol) [facility] Utilities Answer Date Recorded In the past 12 months has th e electric, gas, oil, or water [employer] threatened to shut off services in your [...] in a penitentiary (including now)? No 07/28/2023 IPV Inpatient Questions [...] PM EST TH Visit (TeleHealth) [place] [address] Zachary Garcia MD [facility] [place] [address] 06/11/2024 9:00 AM EST Office Visit Occupational [place] [address] EspinozaTia de la torreyl E, OT 07/10/2024 8:00 AM EST Office Visit Occupational [place] [address] Espinoza, Caroline E, OT 07/24/2024 10:00 AM EST Office Visit Occup[place] [address] Espinoza, Caroline E, OT 08/07/2024 10:00 AM EST Office Visit Occup[place] [address] Espinoza, Caroline E, OT 08/21/2024 10:00 AM EST Office Visit Occupational [place] [address] Caroline Espinoza, OT documented as of this encounter Visit Diagnoses Not on filedocumented in this encounter Care Teams Aeronautical Test Engineer Relationship Specialty Start Date End Date Shannan Arellano, SR. MANAGER [employer] [place] [address] PCP - General Family Medicine 02/03/23 documented as of this encounter
--- OUTSIDE RECORDS SUMMARY | 2024-06-04 17:28 | XMS_ITS | Encounter Summary ---
Author Organization [facility] Address [facility] [place] [address] Care Team Providers Care Wheat Shipper Name Role Phone Shannan Arellano APRN Primary Care Provider [phone] Encounter Details Date Type Department Care Team (Late st Contact Info) Description 01/12/2024 Telephone Radiation Oncology at [facility] [place] [phone] Noemy Mallory MD [facility] DR [place] [address] Social History Tobacco Use Types Packs/Day Years Used Date Smoking Tobacco: Never Smokeless Tobacco: Never Alcohol Use Standard Drinks/Week Comments Yes 1 (1 standard drink = 0.6 oz pur e alcohol) [facility] Utilities Answer Date Recorded In the [...] place to sleep or slept in a chcf (including now)? No 07/28/2023 IPV Inpatient Questions [...] Miscellaneous Notes * Telephone Encounter - Noemy Malloyr MD - 01/12/2024 1:26 PM EDT Patient's PET/CT was completed yesterday. Final results show non-specific focal uptake in base of the penis/penile urethra favoring inflammatory etiology. Called patient to discuss results but there was no answer. Left message that I was calling from Dr. Peters's office and would reach out again. Son Mallory MD, MS PGY5 documented in this encounter Plan of Treatment Upcoming Encounters Date Type Department Care Team (Late st Contact Info) Description 06/07/2024 1:00 PM EST TH Visit (TeleHealth) [place] [address] Zachary Garcia MD [facility] [place] [address] 06/11/2024 9:00 AM EST Office Visit [place] [address] Espinoza, Caroline E, OT 07/10/2024 8:00 AM EST Office Visit [place] [address] Espinoza, Caroline E, OT 07/24/2024 10:00 AM EST Office Visit [place] [address] Espinoza, Caroline E, OT 08/07/2024 10:00 AM EST Office Visit [place] [address] Espinoza, Caroline E, OT 08/21/2024 10:00 AM EST Office Visit [place] [address] Espinoza, Caroline E, OT documented as of this encounter Visit Diagnoses Not on filedocumented in this encounter Care Teams Wheat Shipper Relationship Specialty Start Date End Date Shannan Arellano, EXTRACTOR PLANT [place] [address] PCP - General Family Medicine 02/03/23 documented as of this encounter
--- OUTSIDE RECORDS SUMMARY | 2024-06-04 17:28 | XMS_ITS | Encounter Summary ---
Author Organization [facility] [address] Care Team Providers Care Curatorial Specialist Name Role Phone Shannan Arellano GAYLE Primary Care Provider [phone] Reason for Visit * Reason Onset Date Comments Follow-up 11/04/2023 Urinary urgency Encounter Details Date Type Department Care Team (Late st Contact Info) Description 11/04/2023 Telephone Radiation Oncology at [address] [address] Katerina Ochoa, RN Follow-up (Urinary urgency) Social History Tobacco Use Types Packs/Day Years Used Date Smoking Tobacco: Never Smokeless Tobacco: Never Alcohol Use Standard Drinks/Week Comments Yes 1 (1 standard drink = 0.6 oz pur e alcohol) [facility] Utilities Answer Date Recorded In [...] encounter Miscellaneous Notes * Telephone Encounter - Katerina Ochoa RN - 11/04/2023 9:40 AM EDT RN call returned to patient and to assess urinary urgency. Spoke to Kate who tells me it is about the same as it has been. He is getting up about 3 times at night and voiding frequent, small amounts during the day. She was hoping Dr. Peters would be able to order Flomax to try. Dr. Peters updated via in basket and order for Flomax was placed. Returned call to Kate to let her know and also advised her to call us back if Eduardo is having any ill side effects from the medication. Kate is in agreement with this plan. ----- Message from Rolly Peters MD sent at 11/04/2023 9:34 AM EDT ----- Sure flomax is worth trying. I will send it to the pharmacy now. ----- Message ----- From: Katerina Ochoa RN Sent: 11/04/2023 9:28 AM EDT To: Rolly Peters MD I got in touch with his . She said she thought you had mentioned that you were going to order flomax or a different med for the urgency but nothing was ever sent in. His urgency is about the sameand he's still voiding frequent, small amounts. Getting up 3 times at night. They use [facility] in [place]. Let me know your recs and I'll call her back. Thanks, Katerina ----- Message ----- From: Rolly Peters MD Sent: 11/03/2023 4:48 PM EDT To: Chasidy Cali; [facility] Nurse; # Sounds good, thanks for calling him. ----- Message ----- From: Katerina Ochoa RN Sent: 11/03/2023 4:28 PM EDT To: Rolly Peters MD; Chasidy Cali; # I tried to call back to further assess urinary symptoms, but it went to voice mail. I will call again tomorrow. I think it is safe to cancel skin check appointment for tomorrow - I looked with Dr. Maier last week and it was looking much better. Katerina ----- Message ----- From: Chasidy Cali Sent: 11/03/2023 2:29 PM EDT To: [facility] Nurse Francisco Javierjonatan Eduardo is canceling his appt for 11/04/[address] as he said that Dr. Peters told him if he felt like not keeping the appt then he did not have to. Eduardo is also looking for medication to help with the urgency to urinate. They are wondering if Dr. Peters could call that medication in to [facility] in [place] His call back number is [phone] Thank you Chasidy I did not cancel appt, didn't know if in fact he does need to be seen. Just let me know documented in this encounter Plan of Treatment Upcoming Encounters Date Type Department Care Team (Late st Contact Info) Description 06/07/2024 1:00 PM EST TH Visit (TeleHealth) [place] [address] Zachary Garcia MD [facility] [place] [address] 06/11/2024 9:00 AM EST Office Visit [place] [address] Espinoza, Caroline E, OT 07/10/2024 8:00 AM EST Office Visit [place] [address] Espinoza, Caroline E, OT 07/24/2024 10:00 AM EST Office [place] [address] Espinoza, Caroline E, OT 08/07/2024 10:00 AM EST Office Visit [place] [address] Espinoza, Caroline E, OT 08/21/2024 10:00 AM EST Office Visit [place] [address] Espinoza, Caroline E, OT documented as of this encounter Visit Diagnoses Not on filedocumented in this encounter Care Teams Curatorial Specialist Relationship Specialty Start Date End Date Shannan Arellano [place] [address] PCP - General Family Medicine 02/03/23 documented as of this encounter
--- OUTSIDE RECORDS SUMMARY | 2024-06-04 17:28 | XMS_ITS | Encounter Summary ---
[facility] [address] Care Team Providers Care Certification Officer Name Role Phone Shannan Arellano GAYLE Primary Care Provider [phone] Reason for Referral * Diagnostic Test (Routine) - Closed Specialty Diagnoses / Procedures Referred By Marry kelsey Referred To Contact Radiology Diagnoses Penile cancer Procedures IR Mediport Removal Lucinda Cardenas APRN [facility] [place] [address] Referral ID Status Reason Start Date Expiration Date V isits Requested Visits Authorized [id number] Closed Specialty Service Requested 11/22/2023 05/23/2025 1 1 Reason for Visit * Diagnostic Test (Routine) - Closed Specialty Diagnoses / Procedures Referred By Marry kelsey Referred To Contact Radiology Diagnoses Penile cancer Procedures IR Mediport Removal Lucinda Cardenas [facility] [place] [address] Referral ID Status Reason Start Date Expiration Date V isits Requested Visits Authorized [id number] Closed Specialty Service Requested 11/22/2023 05/23/2025 1 1 Encounter Details Date Type Department Care Team (Latest Contact Info) Description 12/20/2023 10:21 AM EDT - 12/20/2023 11:59 PM EDT Hospital En[place] [address] Lucinda Cardenas [employer] [facility] [place] [address] Penile cancer Discharge Disposition: Home Social History Tobacco Use Types Packs/Day Years Used Date Smoking Tobacco: Never Smokeless Tobacco: Never Alcohol Use Standard Drinks/Week Comments Yes 1 (1 standard drink = 0.6 oz pur e alcohol) [facility] Utilities Answer Date Recorded In the past [...] Sign Reading Time Taken Comments Blood Pressure 115/71 12/20/2023 11:56 AM EDT Pulse 56 12/20/2023 11:56 AM EDT Temperature 36.4 ??C (97.5 ??F) 12/20/2023 10:41 AM E DT Respiratory Rate 16 12/20/2023 11:56 AM EDT Oxygen Saturation 96% 12/20/2023 11:56 AM EDT Inhaled Oxygen Concentration - - Weight - - Height - - Body Mass Index - - documented in this encounter Discharge Instructions * Discharge Instructions* Missael Hanley RN - 12/20/2023 11:23 AM EDT [facility] Vascular and Interventional Radiology Discharge Instructions for your Chest Port Removal Activity: Relax for the next 24 hours Diet: Drink plenty of fluids. Resume your regular diet Bandage: There is a sterile dressing consisting of small gauze with a clear dressing (Tegaderm or IV 3000). This dressing should be left in place for 48 hours. If the clear dressing becomes loose youshould place tape over the edges to secure it in place. No tub baths, swimming or whirlpools for 1 week. No showering for 48 hours. Note: There may be Ollie-arana (skin glue) also, allow this to flake off. Do not pick this off. Bathing: Do not take a shower until 48 hours after your port is removed; after this time you may shower with the dressing in place, then remove it and pat your skin dry. After 48 hours, we recommend that you cover the area with THE AQUA GUARD PROVIDED for 1 week while showering, facing away from the shower stream. You may use a bandaid to cover the site after the 48 hours are up if there is any drainage. No tub baths, whirlpools or swimming for one week following port removal. Pain: Apply ice bag to site (s) at 30 minute intervals (30 minutes on and 30 minutes off) for 24 hours?? . May use as needed for pain and/or bruising after 24 hours. When to call your healthcare provider: If you notice bleeding from the incision on your chest, you should lie flat and apply firm pressureover the site for 10-15 minutes, keeping the site covered and call your doctor. If you are still bleeding after 10-15 minutes, reapply pressure, and have someone drive you to the nearest Emergency Department, or call 911. If you develop pain, redness, drainage or swelling at or around chest incision site. If you develop a fever equal to or greater than 101 degrees Fahrenheit. When to call the Interventional Radiology Department: Please call with any questions or concerns. If it is during regular office hours, please call [phone]. If it is after regular office hours, or on weekends or holidays, please call [phone] and ask to speak to the [employer] utility person for Interventional Radiology. You may resume your regular diet as tolerated. Revised 04/05/19 documented in this encounter Medications at Time [...] mouth. 07/27/2023 fluticasone propionate (Flonase) 50 mcg/actuation [place], Suspension by Each Nare route daily. 07/27/2023 oxyCODONE (Roxicodone) 5 mg tablet Take 1 tablet by mouth every 4 hours as needed for Pain (for severe pain not controlled by tylenol/ibuprofen). 5 tablet 06/26/2023 documented as of this encounter Progress Notes * Fozia Danielle RN - 12/20/2023 11:22 AM EDT [facility] DATABASE Name: Eduardo Contreras Date of : 1950 AGE: 73 y.o. Address: [address] [address] Phone: [phone] (home) Mobile: Telephone Information: Referring Provider: Lucinda Cardenas REASON FOR VISIT: Order Questions Answers Where will study be performed? External [125] Reason for exam and clinical history: patient has completed chemo Is the patient on anticoagulant / antiplatelet therapy ? No No data recorded No Known Allergies Pertinent PMH: Patient Active Problem List Diagnosis Code Penile cancer C60.9 Intra-abdominal fluid collection R18.8 Surgical site infection T81.49XA Edema R60.9 Date/Procedure Meds Given/Comments 07/20/23 US Guided Inguinal drain placement x 2 Versed 2mg, Fentanyl 100mcg 08/25/23 Mediport placement Fentanyl 75 mcg IV, Versed 1.5 mg IV Sinus chandler ~50 bpm @ baseline, Hypotensive (80s/50s) w/ sedation - asymptomatic 12/20/23 Mediport Removal Local 1120 to procedure room IR6 via stretcher. Onto table supine. All monitors, O2, safety strap in place. Meds per protocol. Laboratory Results: Lab Results Component Value Date CREATININE 1.02 07/21/2023 Lab Results Component Value Date K 4.3 07/21/2023 Lab Results Component Value Date PLATELET 169 07/21/2023 documented in this encounter H&P Notes * Stumetz, Juan Jose, DO - 12/20/2023 10:38 AM EDT INTERVENTIONAL RADIOLOGY FOCUSED H&P: Procedure: Planned procedure: Mediport removal The patient's history and physical exam have been reviewed and completed. There has been no interval change from that of the pre-operative history and physical exam done within the last 30 days. Physical Exam: Cardiovascular: Regular, Normal Pulmonary: Breath sounds clear to auscultation The planned procedure (and sedation plan if appropriate) , its benefits and risks, and alternativeswere discussed with the patient. The patient consented to the procedure. PRE-SEDATION ASSESSMENT: Sedation Plan: no sedation Confirm NPO status: No History of anesthetic complications: No Current medications reviewed: Yes Allergies reviewed: Yes Source Note - AshfieldKaterina PA - 12/20/2023 8:52 AM EDT Images from the original note were not included. Interventional Radiology Focused Pre-procedure H&P: PCP: Shannan Arellano APRN Referring Provider: Lucinda Cardenas Planned procedure: Mediport removal Procedure indication: Penile cancer, completion of chemotherapy, no longer requiring durable venousaccess IR workflow: Procedure request received through Interventional Radiology eDH order queue. Order Questions Answers Where will study be performed? External [125] Reason for exam and clinical history: patient has completed chemo Is the patient on anticoagulant / antiplatelet therapy ? No History of Present Illness: Per chart review, Eduardo Contreras is a 73 y.o. male with PMH of penile cancer s/p right IJ chest port ( IR, 08/25/23) who presents to Interventional Radiology to undergo chest port removal. Remainder of patient's medical and surgical history, allergies, medications, and social/family history obtained below as previously outlined in patient's medical record. IR History: Date/Procedure Meds Given/Comments 07/20/23 US Guided Inguinal drain placement x 2 Versed 2mg, Fentanyl 100mcg 08/25/23 Mediport placement Fentanyl 75 mcg IV, Versed 1.5 mg IV Sinus chandler ~50 bpm @ baseline, Hypotensive (80s/50s) w/ sedation - asymptomatic Anticoagulation/Antiplatelet: None listed Labs: Lab Results Component Value Date HGB 12.2 (L) 07/21/2023 HCT 35.4 (L) 07/21/2023 WBC 9.1 07/21/2023 PLATELET 169 07/21/2023 BUN 16 07/21/2023 CREATININE 1.02 07/21/2023 Allergies: Patient has no known allergies. Imagin08/25/23 Assessment: 73 y.o. male with right sided chest port presenting to Interventional Radiology for port removal. Plan Planned procedure: Mediport removal Labs to be performed day of procedure: No labs Sedation: No Sedation Prophylactic antibiotic : None Contrast: No contrast Additional medications for procedure: Lidocaine Planned access site: Right chest Position: Supine Consent: Pending Medications to discontinue (and days held): None Cytopathology presence needed: No Case Urgency:: G2- Elective Outpatient intervention within 8-14 days Medications: Current Outpatient Medications on File Prior to Encounter Medication Sig Dispense Refill tamsulosin (Flomax) 0.4 mg capsule Take 1 capsule by mouth nightly. 30 tablet PRN silver sulfADIAZINE (Silvadene) 1 % Cream Apply topically daily. 400 g 0 simethicone (Gas-X Chew) 80 mg chewable tablet [...] under your tongue and it will dissolve. (Patient not taking: Reportedon 10/28/2023) 30 tablet PRN Psyllium Seed-Sucrose (0) Powder Take by mouth. loperamide (IMODIUM A-D) 2 mg Tablet Take by mouth 4 times daily as needed for Diarrhea. Maximum 16mg in 24 hours lidocaine-prilocaine (EMLA) Cream Apply topically as needed. (Patient not taking: Reported on 09/08/2023) 30 g 1 prochlorperazine (Compazine) 10 mg tablet Take 1 tablet by mouth every 6 hours as needed for Nausea. (Patient not taking: Reported on 10/28/2023) 30 tablet 3 acetaminophen (Tylenol) 325 mg tablet Take 650 mg by mouth as needed for Pain. Maybe once a week famotidine (Pepcid) 40 mg tablet Take 40 mg by mouth. fluticasone propionate (Flonase) 50 mcg/actuation [place], Suspension by Each Nare route daily. oxyCODONE (Roxicodone) 5 mg tablet Take 1 tablet by mouth every 4 hours as needed for Pain (for severe pain not controlled by tylenol/ibuprofen). (Patient not taking: Reported on 07/26/2023) 5 tablet 0 No current facility-administered medications on file prior to encounter. Past Medical/Surgical history: Patient Active Problem List Diagnosis Code Penile cancer C60.9 Intra-abdominal fluid collection R18.8 Surgical site infection T81.49XA Edema R60.9 No past medical history on file. Past Surgical History: Procedure Laterality Date IR ALL DRAINAGE PROCEDURES 07/20/2023 IR All Drainage Procedures [facility] RAD IR MEDIPORT PLACEMENT 08/25/2023 IR Mediport Placement 08/25/2023 Robbin Cristobal PA [facility] RAD PRO CYSTOURETHROSCOPY, BIOPSIES N/A 05/09/2023 CYSTO, URETHROSCOPY WITH BIOPSY (WRVU 2.59) performed by Zachary Garcia MD at [facility] OSC PRO MUSCLE-SKIN FLAP, LEG Bilateral 06/24/2023 FLAP, MYOCUTANEOUS OR FASCIOCUTANEOUS, LOWER EXTREMITY (WRVU 19.04) performed by Zachary Garcia MDat [facility] MA[facility] OR PRO REMOVAL PENIS, PARTIAL N/A 06/24/2023 PENILE AMPUTATION, PARTIAL (WRVU 11.01) performed by Zachary Garcia MD at [facility] MA[facility] OR PRO REMOVE GROIN LYMPH NODES SUPERF Bilateral 06/24/2023 LYMPHADENECTOMY, INGUINOFEMORAL- ADRIEN (WRVU 13.62) performed by Zachary Garcia MD at [facility] MA[facility] OR PRO UNLISTED LAPAROSCOPY PROCEDURE LYMPHATIC SYSTEM Bilateral 06/24/2023 LAPAROSCOPIC LYMPHADENECTOMY (WRVU 17.08) performed by Zachary Garcia MD at [facility] MA[facility] OR Social History and Habits: Social History Tobacco Use Smoking status: Never Smokeless tobacco: Never Vaping Use Vaping status: Never Used Substance Use Topics Alcohol use: Yes Alcohol/week: 1.0 standard drink of alcohol Types: 1 Cans of beer per week Drug use: Never Significant Family History: Family History Problem Relation Age of Onset Breast Cancer Maternal Grandmother Pertinent ROS: as per HPI Physical Exam: Pending (to be performed in IR the day of procedure) ASA: Pending (to be assessed in IR the day of procedure) Mallampati class: Pending (to be assessed in IR the day of procedure) 12/20/2023 Katerina Fernandez PA-C * Katerina Fernandez PA - 12/20/2023 8:52 AM EDT Images from the original note were not included. Interventional Radiology Focused Pre-procedure H&P: PCP: Shannan Arellano APRN Referring Provider: Lucinda Cardenas Planned procedure: Mediport removal Procedure indication: Penile cancer, completion of chemotherapy, no longer requiring durable venousaccess IR workflow: Procedure request received through Interventional Radiology eDH order queue. Order Questions Answers Where will study be performed? External [125] Reason for exam and clinical history: patient has completed chemo Is the patient on anticoagulant / antiplatelet therapy ? No History of Present Illness: Per chart review, Eduardo Contreras is a 73 y.o. male with PMH of penile cancer s/p right IJ chest port ( IR, 08/25/23) who presents to Interventional Radiology to undergo chest port removal. Remainder of patient's medical and surgical history, allergies, medications, and social/family history obtained below as previously outlined in patient's medical record. IR History: Date/Procedure Meds Given/Comments 07/20/23 US Guided Inguinal drain placement x 2 Versed 2mg, Fentanyl 100mcg 08/25/23 Mediport placement Fentanyl 75 mcg IV, Versed 1.5 mg IV Sinus chandler ~50 bpm @ baseline, Hypotensive (80s/50s) w/ sedation - asymptomatic Anticoagulation/Antiplatelet: None listed Labs: Lab Results Component Value Date HGB 12.2 (L) 07/21/2023 HCT 35.4 (L) 07/21/2023 WBC 9.1 07/21/2023 PLATELET 169 07/21/2023 BUN 16 07/21/2023 CREATININE 1.02 07/21/2023 Allergies: Patient has no known allergies. Imagin08/25/23 Assessment: 73 y.o. male with right sided chest port presenting to Interventional Radiology for port removal. Plan Planned procedure: Mediport removal Labs to be performed day of procedure: No labs Sedation: No Sedation Prophylactic antibiotic : None Contrast: No contrast Additional medications for procedure: Lidocaine Planned access site: Right chest Position: Supine Consent: Pending Medications to discontinue (and days held): None Cytopathology presence needed: No Case Urgency:: G2- Elective Outpatient intervention within 8-14 days Medications: Current Outpatient Medications on File Prior to Encounter Medication Sig Dispense Refill tamsulosin (Flomax) 0.4 mg capsule Take 1 capsule by mouth nightly. 30 tablet PRN silver sulfADIAZINE (Silvadene) 1 % Cream Apply topically daily. 400 g 0 simethicone (Gas-X Chew) 80 mg chewable tablet [...] under your tongue and it will dissolve. (Patient not taking: Reportedon 10/28/2023) 30 tablet PRN Psyllium Seed-Sucrose (0) Powder Take by mouth. loperamide (IMODIUM A-D) 2 mg Tablet Take by mouth 4 times daily as needed for Diarrhea. Maximum 16mg in 24 hours lidocaine-prilocaine (EMLA) Cream Apply topically as needed. (Patient not taking: Reported on 09/08/2023) 30 g 1 prochlorperazine (Compazine) 10 mg tablet Take 1 tablet by mouth every 6 hours as needed for Nausea. (Patient not taking: Reported on 10/28/2023) 30 tablet 3 acetaminophen (Tylenol) 325 mg tablet Take 650 mg by mouth as needed for Pain. Maybe once a week famotidine (Pepcid) 40 mg tablet Take 40 mg by mouth. fluticasone propionate (Flonase) 50 mcg/actuation [place], Suspension by Each Nare route daily. oxyCODONE (Roxicodone) 5 mg tablet Take 1 tablet by mouth every 4 hours as needed for Pain (for severe pain not controlled by tylenol/ibuprofen). (Patient not taking: Reported on 07/26/2023) 5 tablet 0 No current facility-administered medications on file prior to encounter. Past Medical/Surgical history: Patient Active Problem List Diagnosis Code Penile cancer C60.9 Intra-abdominal fluid collection R18.8 Surgical site infection T81.49XA Edema R60.9 No past medical history on file. Past Surgical History: Procedure Laterality Date IR ALL DRAINAGE PROCEDURES 07/20/2023 IR All Drainage Procedures [facility] IR MEDIPORT PLACEMENT 08/25/2023 IR Mediport Placement 08/25/2023 Robbin Cristobal PA [facility] RAD PRO CYSTOURETHROSCOPY, BIOPSIES N/A 05/09/2023 CYSTO, URETHROSCOPY WITH BIOPSY (WRVU 2.59) performed by Zachary Garcia MD at [facility] OSC PRO MUSCLE-SKIN FLAP, LEG Bilateral 06/24/2023 FLAP, MYOCUTANEOUS OR FASCIOCUTANEOUS, LOWER EXTREMITY (WRVU 19.04) performed by [facility]at [facility] PRO REMOVAL PENIS, PARTIAL N/A 06/24/2023 PENILE AMPUTATION, PARTIAL (WRVU 11.01) performed by Zachary Garcia MD at [facility] MA[facility] OR PRO REMOVE GROIN LYMPH NODES SUPERF Bilateral 06/24/2023 LYMPHADENECTOMY, INGUINOFEMORAL- ADRIEN (WRVU 13.62) performed by Zachary Garcia MD at [facility] MA[facility] OR PRO UNLISTED LAPAROSCOPY PROCEDURE LYMPHATIC SYSTEM Bilateral 06/24/2023 LAPAROSCOPIC LYMPHADENECTOMY (WRVU 17.08) performed by Zachary Garcia MD at [facility] OR Social History and Habits: Social History Tobacco Use Smoking status: Never Smokeless tobacco: Never Vaping Use Vaping status: Never Used Substance Use Topics Alcohol use: Yes Alcohol/week: 1.0 standard drink of alcohol Types: 1 Cans of beer per week Drug use: Never Significant Family History: Family History Problem Relation Age of Onset Breast Cancer Maternal Grandmother Pertinent ROS: as per HPI Physical Exam: Pending (to be performed in IR the day of procedure) ASA: Pending (to be assessed in IR the day of procedure) Mallampati class: Pending (to be assessed in IR the day of procedure) 12/20/2023 Katerina Fernandez PA-C documented in this encounter Plan of Treatment Upcoming Encounters Date Type Department Care Team (Late st Contact Info) Description 06/07/2024 1:00 PM EST TH Visit (TeleHealth) [place] [address] Zachary Garcia MD [facility] [place] [address] 06/11/2024 9:00 AM EST Office Visit [place] [address] Espinoza, Caroline E, OT 07/10/2024 8:00 AM EST Office Visit [place] [address] Espinoza, Caroline E, OT 07/24/2024 10:00 AM EST Office Visit [place] [address] Espinoza, Caroline E, OT 08/07/2024 10:00 AM EST Office Visit [place] [address] Espinoza, Caroline E, OT 08/21/2024 10:00 AM EST Office Visit [place] [address] Espinoza, Caroline E, OT documented as of this encounter Procedures Procedure Name Priority Date/Time Associated Diagnosis Comments IR MEDIPORT REMOVAL Routine 12/20/2023 1 2:00 PM EDT Penile cancer documented in this encounter Results * IR Mediport Removal (12/20/2023 12:00 PM EDT) Anatomical Region Laterality Modality X-Ray Angiograph y Narrative 12/20/2023 1:34 PM EDT Interventional Radiology Procedure Note Procedure: Venous chest port explant Indication: Penile cancer, discontinue nursing home central venous access for chemotherapy Pre-procedure: Informed consent for the procedure including risks, benefits and alternatives was obtained. Active time-out was performed prior to the procedure. Maximum sterile barrier technique was used throughout the procedure. Sedation: None Technique: Local anesthetic was administered at the port site. A 2 cm transverse incision was made superior to the port. Catheter was removed from the vein via the subcutaneous tunnel. Hemostasis was achieved by applying direct pressure to the right neck. Blunt and sharp dissection used to remove, intact, the single-lumen port. Removal of the port reservoir, hub, and catheter were confirmed by their identification outside the patient. The wound was copiously irrigated with normal saline. The pocket was closed using a two-layer technique with 2-0 vicryl deep interrupted and 4-0 vicryl running subcuticular sutures. Skin closed with dermabond. Medications: Lidocaine 1% 10 mL subcut; lidocaine 2% with epinephrine 1:100,000 10 mL subcut Estimated blood loss: 2 mL Complications: No immediate Impression: Explantation of single-lumen right subcutaneous venous port with all components accounted for. Service provider: Katerina Fernandez PA-C Attending of record: Zachary Jon MD 12/20/2023 Lucinda A Cardenas [employer] INS[employer] IMG IR ORDERABLES documented in this encounter Visit Diagnoses Diagnosis Penile cancer Malignant neoplasm of penis, part unspecified documented in this encounter Administered Medications Inactive Administered Medications - up to 3 most recent administrations Medication Order MAR Action Action Date Dose Rate Site lidocaine (Xylocaine) 1% (10 mg/mL) injection 10 mg 10 mg, Subcutaneous, ONCE, 1 dose, On Tue12/20/23 at 1100, For use in Interventional Radiology (IR) only for procedure with direct provider supervision and verbal order., Angio/IR (Intra-Procedure), Routine Given 12/20/2023 11:35 AM EDT 10 mg lidocaine-EPINEPHrine (1% - 1:100,000) injection 20 mL 20 mL, Intradermal, ONCE, 1 dose, On Tue12/20/23 at 1100, For use in Interventional Radiology (IR) only for procedure with direct provider supervision and verbal order. *This order is NOT a Venous Ablation Order / Dose., Angio/IR (Intra-Procedure), Routine Given 12/20/2023 11:36 AM EDT 20 mLs documented in this encounter Care Teams Certification Officer Relationship Specialty Start Date End Date Shannan Arellano, [employer] [address] [place] [address] PCP - General Family Medicine 02/03/23 documented as of this encounter
--- OUTSIDE RECORDS SUMMARY | 2024-06-04 17:28 | XMS_ITS | Encounter Summary ---
Author Organization [facility] Address [facility] ge[place] [id number] Care Team Providers Care Photocopying Machine Operator Name Role Phone Shannan Arellano APRN Primary Care Provider [phone] Reason for Visit * Reason Comments IV Access PORTFLUSH Encounter Details Date Type Department Care Team (Late st Contact Info) Description 11/18/2023 12:30 PM EDT Infusion Hematology Oncology at [address] [phone] Penile cancer Social History Tobacco Use Types Packs/Day Years Used Date Smoking Tobacco: Never Smokeless Tobacco: Never Alcohol Use Standard Drinks/Week Comments Yes 1 (1 standard drink = 0.6 oz pur e alcohol) [facility] Utilities Answer Date Recorded In the [...] Sign Reading Time Taken Comments Blood Pressure 116/73 11/18/2023 12:30 PM EDT Pulse 66 11/18/2023 12:30 PM EDT Temperature 36.3 ??C (97.3 ??F) 11/18/2023 12:30 PM E DT Respiratory Rate 16 11/18/2023 12:30 PM EDT Oxygen Saturation 98% 11/18/2023 12:30 PM EDT Inhaled Oxygen Concentration - - Weight 74 kg (163 lb 3.2 oz) 11/18/2023 12:30 PM EDT Height 172.2 cm (5' 7.8) 11/18/2023 12:30 PM ED T Body Mass Index 24.96 11/18/2023 12:30 PM EDT documented in this encounter Progress Notes * Fuetnes Baxter, RN - 11/18/2023 12:30 PM EDT INFUSION THERAPY ADMINISTRATION NOTES DIAGNOSIS: 1. Penile cancer REASON FOR VISIT: MEDIPORT FLUSH ONLY IV ACCESS: Mediport GAUGE: 19G BLOOD RETURN: yes ANY S/S OF INFECTION/EXTRAVASATIONS: no signs of IV complications observed IV FLUSHED WITH: 20cc NS via pulsatile method IV DISCONTINUED: yes ASSESSMENT: Patient tolerated treatment well. PLAN: Return to clinic per routine. documented in this encounter Plan of Treatment Upcoming Encounters Date Type Department Care Team (Late st Contact Info) Description 06/07/2024 1:00 PM EST TH Visit (TeleHealth) [place] [address] Zachary Garcia MD [facility] [place] [address] 06/11/2024 9:00 AM EST Office Visit [place] [address] Espinoza, Caroline E, OT 07/10/2024 8:00 AM EST Office Visit [place] [address] Espinoza, Caroline E, OT 07/24/2024 10:00 AM EST Office Visit [place] [address] Espinoza, Caroline E, OT 08/07/2024 10:00 AM EST Office Visit [place] [address] Espinoza, Caroline E, OT 08/21/2024 10:00 AM EST Office Visit [place] [address] Espinoza, Caroline E, OT documented as of this encounter Visit Diagnoses Diagnosis Penile cancer Malignant neoplasm of penis, part unspecified documented in this encounter Care Teams Photocopying Machine Operator Relationship Specialty Start Date End Date Shannan [place] [address] PCP - General Family Medicine 02/03/23 documented as of this encounter
--- OUTSIDE RECORDS SUMMARY | 2024-06-04 17:28 | XMS_ITS | Encounter Summary ---
Author Organization [facility] Address [facility] [place] [address] Care Team Providers Care Commis Chef Name Role Phone Shannan Arellano GAYLE Primary Care Provider [phone] Reason for Visit * Physical Therapy (Routine) - Authorized Specialty Diagnoses / Procedures Referred By Marry kelsey Referred To Contact Physical Therapy Diagnoses Penile cancer Zachary Garcia MD [facility] [place] [address] [facility] [place] [address] Referral ID Status Reason Start Date Expiration Date Visits Requested Visits Authorized [id number] Authorized Evaluate and Treat 05/17/2023 06/15/2024 100 100 Encounter Details Date Type Department Care Team (Late st Contact Info) Description 03/20/2024 9:00 AM EDT Office [place] [address] Caroline Espinoza, OT Lymphedema (Primary Dx); 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 No 07/28/2023 DH IPV Inpatient [...] - Therapy - Caroline Espinoza OT - 03/20/2024 9:00 AM EDTSummary: OT/CLTLE LYMPHEDEMA TREATMENT NOTE OT/CLT LE LYMPHEDEMA PROGRESS [...] B LE and pelvis/trunk. Pending with [facility] for follow through. He avinash [...] ACTIVITY LEVEL: Active lifestyle and work. 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 PAIN: Occasional [...] 01/24/24 Right 02/21/24 LEFT 02/21/24 RIGHT 03/20/24 LEFt 03/20/24 Mid foot 22.8 23.2 22.5 23.6 22.3 23.5 22.5 23.5 23 24.7 23 25 22 22.9 Ankle 25.4 24 24 24.1 23 24.5 22.6 26 23.9 27.1 23.9 27.5 22.1 23.8 Calf 33 35.3 31.7 34.8 34.7 35.8 35.5 34.6 31.1 35 32 35.5 29.5 35.7 D 32.3 31.8 33.5 33 33 32.8 32.5 33.2 32.9 35.2 33 35.4 32 34.2 Knee 35.7 35.5 36.8 37.2 36.4 37.5 36.2 38.4 36.4 41.2 36.5 42.4 35.6 37.6 Knee +12 45.3 46.8 46.7 47 45.2 46 46.5 49.7 47.1 48.6 47 49.6 45.6 51.4 Upper thigh G 55 53.4 51.2 52 51.5 51.8 51.7 54.2 53.6 57.3 52.7 58.2 50.7 57.8 A-D Length 38 A-G Length 75 Waist 87.5 Hips 95.2 Patient continues with persistent lower abdomen, pelvis lymphedema even with follow through with all techniques taught. Lower abdomen and above pubic area continues firm and fluid filled. Responds positively to MLD sessions. Utilizing JUZO 20-30 MMhG compression short size II capris. Wearing during the day. Patient is using Jobst relax tights 20-30 mmHg footless/footed . He finds these comfortable. He wears these most often. Continue using scrotal pad to keep scrotal swelling down. Verbalizes understanding. Lower abdomen pubic lymphedema has been more persistent. Scars are mobile and well healed CLINICAL [...] indicated . Order is pending with [facility] Clinical presentation: Stable Evolving Unstable X X [...] 6. SCD trial. [facility] Pending Therapy Detention Goals 12 weeks 1. Patient will demonstrate [...] current techniques not enough. Referral sent to [facility]. Pending insurance. Education/training with edda quintanilla. Good return demo. Education and training for LE muscle pump HEP. Has written information. Excellent follow through. PLAN: OT/CLT SERVICES 2x/month x 3 months Adding or tapering visits as needed. Treatment: manual lymphatic drainage Exercise- muscle pump HEP teaching self care garment fitting- Bioflex Orly and Jobst compression shorts. Patient alternates. Patient has scrotal swell packs/channel foam to minimize scrotal edema.Pending new Jobst tights. Adjunct fluid management techniques SCD trial has been initiated. Looking to get advanced pump with pelvic and abdominal pump . Per Medicare guidelines he will need to first trial basic Entree pump for 4 weeks. Charges Minutes OT EVAL LOW (41075) OT EVAL MOD (80750) OT EVAL HIGH (40462) MANUAL THERAPY(03675) 45 SELF CARE/HOME MANAGEMENT (84431) THERAPEUTIC/FUNCTIONAL ACTIVITIES(50422) THEREX NEUROMUSCULAR BINA(78587) THEREX: STRENGTH ROM (69799) 15 Caroline Espinoza, OT/CLT ADVANCED PNEUMATIC COMPRESSION [...] PM EST TH Visit (TeleHealth) [place] [address] Zachary Garcia MD [facility] [place] [address] 06/11/2024 9:00 AM EST Office [place] [address] Caroline Espinoza OT 07/10/2024 8:00 AM EST Office [place] [address] Caroline Espinoza OT 07/24/2024 10:00 AM EST Office [place] [address] Caroline Espinoza OT 08/07/2024 10:00 AM EST Office [place] [address] Caroline Espinoza, OT 08/21/2024 10:00 AM EST Office [place] [address] Caroline Espinoza OT documented as of this encounter Procedures Procedure Name Priority Date/Time Associated Diagnosis Comments OT PLAN OF CARE CERT/RE-CERT Routine 03/20/2024 10:58 AM EDT Lymphedema 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
--- OUTSIDE RECORDS SUMMARY | 2024-06-04 17:28 | XMS_ITS | Encounter Summary ---
Author Organization [facility] Address [facility] [address] Care Team Providers Care Camera Engineer Name Role Phone Shannan Arellano APRN Primary Care Provider [phone] Encounter Details Date Type Department Care Team (Late st Contact Info) Description 03/15/2024 Telephone [place] [phone] Marline Goetz RN Social History Tobacco Use Types Packs/Day Years Used Date Smoking Tobacco: Never Smokeless Tobacco: Never Alcohol Use Standard Drinks/Week Comments Yes 1 (1 standard drink = 0.6 oz pur e alcohol) [facility] Utilities Answer Date Recorded In the past [...] place to sleep or slept in a fci (including now)? No 07/28/2023 IPV Inpatient Questions [...] Telephone Encounter - Marline Goetz RN - 03/15/2024 11:38 AM EDT Copied from CRM #[id number]. Topic: Specialty Dept CRMs - Form Status >> Mar 15, 2024 11:11 AM Alyce Alonso wrote: Form Status Request Specialist Radha Relationship (if other than patient-full name): Catrachita with [facility] Type of Form/Paperwork: Rx form How Was Form/Paperwork Given to Office: Faxed Date Form/Paperwork was Sent to Office: 03/07/2024 Patient Informed, completion of this request can take 5-7 business days. documented in this encounter Plan of Treatment Upcoming Encounters Date Type Department Care Team (Late st Contact Info) Description 06/07/2024 1:00 PM EST TH Visit (TeleHealth) [place] [address] Zachary Garcia MD [facility] [place] [address] 06/11/2024 9:00 AM EST Office Visit [place] [address] Espinoza, Caroline E, OT 07/10/2024 8:00 AM EST Office Visit [place] [address] Espinoza, Caroline E, OT 07/24/2024 10:00 AM EST Office Visit [place] [address] Espinoza, Caroline E, OT 08/07/2024 10:00 AM EST Office Visit [place] [address] Espinoza, Caroline E, OT 08/21/2024 10:00 AM EST Office Visit [place] [address] Espinoza, Caroline E, OT documented as of this encounter Visit Diagnoses Not on filedocumented in this encounter Care Teams Camera Engineer Relationship Specialty Start Date End Date Shannan Arellano, [place] [address] PCP - General Family Medicine 02/03/23 documented as of this encounter
--- OUTSIDE RECORDS SUMMARY | 2024-06-04 17:28 | XMS_ITS | Encounter Summary ---
Author Organization [facility] Address [facility] [place] [address] Care Team Providers Care Documentation Spec Name Role Phone Shannan Arellano GAYLE Primary Care Provider [phone] Reason for Referral * Diagnostic Test (Routine) - Closed Specialty Diagnoses / Procedures Referred By Marry kelsey Referred To Contact Radiology Diagnoses Penile cancer Procedures IR Mediport Removal Lucinda Cardenas APRN [facility] [place] [address] Referral ID Status Reason Start Date Expiration Date V isits Requested Visits Authorized [id number] Closed Specialty Service Requested 11/22/2023 05/23/2025 1 1 Encounter Details Date Type Department Care Team (Late st Contact Info) Description 11/22/2023 Orders Only Hematology/Oncology at [address] [address] Lucinda Cardenas APRN [facility] [place] [address] Penile cancer Social History Tobacco Use Types Packs/Day Years Used Date Smoking Tobacco: Never Smokeless Tobacco: Never Alcohol Use Standard Drinks/Week Comments Yes 1 (1 standard drink = 0.6 oz pur e alcohol) [facility] Utilities Answer Date Recorded In the [...] PM EST TH Visit (TeleHealth) [place] [address] Zachary Garcia MD [facility] [address] 06/11/2024 9:00 AM EST Office Visit [place] [address] Espinoza, Caroline E, OT 07/10/2024 8:00 AM EST Office Visit [place] [address] Espinoza, Caroline E, OT 07/24/2024 10:00 AM EST Office Visit [place] [address] Espinoza, Caroline E, OT 08/07/2024 10:00 AM EST Office Visit [place] [address] Espinoza, Caroline E, OT 08/21/2024 10:00 AM EST Office Visit [place] [address] Espinoza, Caroline E, OT documented as of this encounter Results * IR Mediport Removal (12/20/2023 12:00 PM EDT) Anatomical Region Laterality Modality X-Ray Angiograph y Narrative 12/20/2023 1:34 PM EDT Interventional Radiology Procedure Note Procedure: Venous chest port explant Indication: Penile cancer, discontinue half-way central venous access for chemotherapy Pre-procedure: Informed [...] of record: Zachary Jon MD 12/20/2023 Lucinda Cardenas RADIATOR CORE TESTER IMG IR ORDERABLES documented in this encounter Visit Diagnoses Diagnosis Penile cancer Malignant neoplasm of penis, part unspecified Penile cancer Malignant neoplasm of penis, part unspecified documented in this encounter Care Teams Documentation Spec Relationship Specialty Start Date End Date Shannan Arellano, RADIATOR CORE TESTER [address] [place] [address] PCP - General Family Medicine 02/03/23 documented as of this encounter
--- OUTSIDE RECORDS SUMMARY | 2024-06-04 17:28 | XMS_ITS | Encounter Summary ---
Author Organization [facility] [place] [address] Care Team Providers Care Pharmacy Specialist Name Role Phone Shannan Arellano GAYLE Primary Care Provider [phone] Reason for Visit * Diagnostic Test (Routine) - Closed Specialty Diagnoses / Procedures Referred By Marry kelsey Referred To Contact Diagnoses Penile cancer Procedures Duplex Study for DVT, Bilat legs Shelbie Garcia MD [facility] [place] [address] [facility] [address] [place] [address] Referral ID Status Reason Start Date Expiration Date V isits Requested Visits Authorized [id number] Closed Specialty Service Requested 01/24/2024 01/23/2025 1 1 Encounter Details Date Type Department Care Team (Late st Contact Info) Description 01/25/2024 2:00 PM EDT Tech [place] [address] Krystian Faith [place] Penile cancer Social History Tobacco Use Types Packs/Day Years Used Date Smoking Tobacco: Never Smokeless Tobacco: Never Alcohol Use Standard Drinks/Week Comments Yes 1 (1 standard drink = 0.6 oz pur e alcohol) [facility] Utilities Answer Date Recorded In the past 12 months has [employer], gas, oil, or water company threatened to [...] PM EST TH Visit (TeleHealth) [place] [phone] Shelbie Garcia MD [facility] [place] [address] 06/11/2024 9:00 AM EST Office Visit Occup[place] [address] Espinoza, Caroline E, OT 07/10/2024 8:00 AM EST Office Visit [place] [address] Espinoza, Caroline E, OT 07/24/2024 10:00 AM EST Office Visit [place] [address] Espinoza, Caroline E, OT 08/07/2024 10:00 AM EST Office Visit [place] [address] Espinoza, Caroline E, OT 08/21/2024 10:00 AM EST Office Visit [place] [address] Espinoza, Caroline E, OT documented as of this encounter Procedures Procedure Name Priority Date/Time Associated Diagnosis Comments DUPLEX FOR DVT BILAT LEGS Routine 01/25/2024 2:07 PM EDT Penile cancer documented in this encounter Results * Duplex Study for DVT, Bilat legs (01/25/2024 2:07 PM EDT) VB Text Report Department: Vascular Surgery Lab Patient: [id number] (EBONY CONTRERAS) CPT: [id number] Referring Physician: SHELBIE GARCIA ?? Indications: Bilateral [...] Garcia MD VASCULAR ORDERABLES Performing Organization Address City/State/[facility] Co de Phone Number VAS[facility] documented in this encounter Visit Diagnoses Diagnosis Penile cancer Malignant neoplasm of penis, part unspecified documented in this encounter Care Teams Pharmacy Specialist Relationship Specialty Start Date End Date Shannan Arellano, PRINTING MACHINE OPERATOR [employer] [place] [address] PCP - General Family Medicine 02/03/23 documented as of this encounter
--- OUTSIDE RECORDS SUMMARY | 2024-06-04 17:28 | XMS_ITS | Encounter Summary ---
Author Organization [facility] Address [facility] [address] Care Team Providers Care Mine Promotor Name Role Phone Shannan Arellano APRN Primary Care Provider [phone] Encounter Details Date Type Department Care Team (Late st Contact Info) Description 11/03/2023 Telephone Radiation Oncology at [address] [phone] Chasidy Cali Social History Tobacco Use Types Packs/Day Years [...] encounter Miscellaneous Notes * Telephone Encounter - Chasidy Cali - 11/03/2023 2:23 PM EDT [facility] called to cancel the appt on 11/04/23. She said that Dr. Peters told Eduardo if he felt that he did not want to come to the appts then he did not have to. So they are canceling. documented in this encounter Plan of Treatment Upcoming Encounters Date Type Department Care Team (Late st Contact Info) Description 06/07/2024 1:00 PM EST TH Visit (TeleHealth) [place] [address] Zachary Garcia MD [facility] [place] [address] 06/11/2024 9:00 AM EST Office [place] [address] Caroline Espinoza OT 07/10/2024 8:00 AM EST Office [place] [address] Espinoza, Caroline E, OT 07/24/2024 10:00 AM EST Office [place] [address] Espinoza, Caroline E, OT 08/07/2024 10:00 AM EST Office [place] [address] Espinoza, Caroline E, OT 08/21/2024 10:00 AM EST Office [place] [address] Espinoza, Caroline E, OT documented as of this encounter Visit Diagnoses Not on filedocumented in this encounter Care Teams Mine Promotor Relationship Specialty Start Date End Date Shannan Arellano, RUNNER [place] [address] PCP - General Family Medicine 02/03/23 documented as of this encounter
--- OUTSIDE RECORDS SUMMARY | 2024-06-04 17:28 | XMS_ITS | Encounter Summary ---
Author Organization [facility] Address [facility] [place] [address] Care Team Providers Care Nurse Wound Name Role Phone Shannan Arellano GAYLE Primary Care Provider Reason for Visit * Physical Therapy (Routine) - Authorized Specialty Diagnoses / Procedures Referred By Marry kelsey Referred To Contact Physical Therapy Diagnoses Penile cancer Zachary Garcia MD [facility] [place] [address] [facility] [place] [address] Referral ID Status Reason Start Date Expiration Date Visits Requested Visits Authorized [id number] Authorized Evaluate and Treat 05/17/2023 06/15/2024 100 100 Encounter Details Date Type Department Care Team (Late st Contact Info) Description 02/21/2024 9:00 AM EDT Office Visit [place] [address] Caroline Espinoza, OT Lymphedema; 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 No 07/28/2023 DH IPV Inpatient [...] Progress Notes * Caroline Espinoza OT - 02/21/2024 9:00 AM EDTSummary: OT/CLT LE LYMPHEDEMA PROGRESS [...] sequential compression pumps for B LE and trunk. Referral for placed with [facility] for follow through. PRECAUTIONS: activity as tolerated SOCIAL SUPPORTS: Patient lives with spouse, Kate, 6 children 30 years. Does not smoke. Anddrinks rarely ENVIRONMENT: I at home with out DME PATIENT STATED GOAL: I want to get back to work and doing what I like to do. CURRENT ACTIVITY LEVEL: Active lifestyle and work. 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 PAIN: Occasional [...] noted Mod/max fibrotic tissue changes noted groin, pelvis and upper thigh L>R LE. R LE often having lymphedema through to ankle.Continues with scrotal lymphedema. Reviewed S/S of cellulitis. Patient andspouse keeping an eye on. Verbalize understanding to [...] 01/24/24 Left 01/24/24 Right 02/21/24 LEFT 02/21/24 Mid foot 22.8 23.2 22.5 23.6 22.3 23.5 22.5 23.5 23 24.7 23 25 Ankle 25.4 24 24 24.1 23 24.5 22.6 26 23.9 27.1 23.9 27.5 Calf 33 35.3 31.7 34.8 34.7 35.8 35.5 34.6 31.1 35 32 35.5 D 32.3 31.8 33.5 33 33 32.8 32.5 33.2 32.9 35.2 33 35.4 Knee 35.7 35.5 36.8 37.2 36.4 37.5 36.2 38.4 36.4 41.2 36.5 42.4 Knee +12 45.3 46.8 46.7 47 45.2 46 46.5 49.7 47.1 48.6 47 49.6 Upper thigh G 55 53.4 51.2 52 51.5 51.8 51.7 54.2 53.6 57.3 52.7 58.2 A-D Length 38 A-G Length 75 Waist 87.5 cm HIPS 95.2 cm Patient continues with persistent scrotal and pelvis [...] to keep scrotal swelling done. Verbalizes understanding. Scrotal and pubic lymphedema has been more persistent. Scars [...] trial indicated . Order is pending with [facility] Clinical presentation: Stable Evolving Unstable X X [...] Muscle pump HEP. Elevation 08/16/23 ongoing. 11/22/23 6. SCD trial. Referral sent to [facility] Pending Therapy Alf Goals 12 weeks 1. Patient will demonstrate [...] current techniques not enough. Referral sent to [facility]. Pending insurance. Education and training for LE muscle pump HEP. Has written information. Excellent follow through. Patient seen today for progress visit. Patient continues to work on goals as denoted above. Patientcontinue to benefit from regular MLD to clear pubic, lower abdomen and upper thighs particular on Rside. OT/CLT services to continue per POC. Patient [...] management techniques SCD trial has been initiated. . Charges Minutes OT EVAL LOW (40696) OT EVAL MOD (67139) OT EVAL HIGH (48412) MANUAL THERAPY(61344) 45 SELF CARE/HOME MANAGEMENT (71088) THERAPEUTIC/FUNCTIONAL ACTIVITIES(06105) THEREX NEUROMUSCULAR BINA(09385) THEREX: STRENGTH ROM (77625) 15 Caroline Espinoza, OT/CLT ADVANCED PNEUMATIC COMPRESSION [...] PM EST TH Visit (TeleHealth) [place] [address] Zachary Garcia MD [facility] [place] [address] 06/11/2024 9:00 AM EST Office Visit [place] [address] Caroline Espinoza, OT 07/10/2024 8:00 AM EST Office Visit [place] [address] Caroline Espinoza, OT 07/24/2024 10:00 AM EST Office Visit [place] [address] Caroline Espinoza, OT 08/07/2024 10:00 AM EST Office Visit [place] [address] Caroline Espinoza, OT 08/21/2024 10:00 AM EST Office Visit [place] [address] Caroline Espinoza, OT documented as of this encounter Visit Diagnoses Diagnosis Lymphedema Other lymphedema 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
--- OUTSIDE RECORDS SUMMARY | 2024-06-04 17:28 | XMS_ITS | Encounter Summary ---
Author Organization [facility] Address [facility] [address] Care Team Providers Care Fast Food Server Name Role Phone Shannan Arellano APRN Primary Care Provider [phone] Encounter Details Date Type Department Care Team (Latest Contact Info) Description 11/22/2023 Travel Social History Tobacco Use Types Packs/Day Years Used Date Smoking Tobacco: Never Smokeless Tobacco: Never Alcohol Use Standard Drinks/Week Comments Yes 1 (1 standard drink = 0.6 oz pur e alcohol) [facility] Utilities Answer Date Recorded In the past 12 months has th e electric, gas, oil, or water [employer] threatened to shut off services in your [...] PM EST TH Visit (TeleHealth) [place] [address] Zachary Garcia MD [facility] [place] [address] 06/11/2024 9:00 AM EST Office Visit Occupational [place] [address] EspinozaTia de la torreyl E, OT 07/10/2024 8:00 AM EST Office Visit Occup[place] [address] Espinoza, Caroline E, OT 07/24/2024 10:00 AM EST Office Visit Occup[place] [address] Espinoza, Caroline E, OT 08/07/2024 10:00 AM EST Office Visit Occupational [place] [address] Espinoza, Caroline E, OT 08/21/2024 10:00 AM EST Office Visit Occupational [place] [address] Caroline Espinoza, OT documented as of this encounter Visit Diagnoses Not on filedocumented in this encounter Care Teams Fast Food Server Relationship Specialty Start Date End Date Shannan Arellano, AGRICULTURAL [employer]IT[place] [address] PCP - General Family Medicine 02/03/23 documented as of this encounter
--- OUTSIDE RECORDS SUMMARY | 2024-06-04 17:28 | XMS_ITS | Encounter Summary ---
Author Organization [facility] Address [facility] [place] [address] Care Team Providers Care Outdoor Adventure Guides Name Role Phone Shannan Arellano APRN Primary Care Provider [phone] Encounter Details Date Type Department Care Team (Late st Contact Info) Description 01/24/2024 Orders Only Urology [facility] [place] [address] Zachary Garcia MD [facility] [place] [address] History of penile cancer (Primary Dx) Social History Tobacco Use Types Packs/Day Years Used Date Smoking Tobacco: Never Smokeless Tobacco: Never Alcohol Use Standard Drinks/Week Comments Yes 1 (1 standard drink = 0.6 oz pur e alcohol) [facility] Utilities Answer Date Recorded In the past [...] PM EST TH Visit (TeleHealth) [place] [address] Zachary Garcia MD [facility] [place] [address] 06/11/2024 9:00 AM EST Office [place] [address] Caroline Espinoza, OT 07/10/2024 8:00 AM EST Office [place] [address] Caroline Espinoza, OT 07/24/2024 10:00 AM EST Office [place] [address] Caroline Espinoza, OT 08/07/2024 10:00 AM EST Office [place] [address] Caroline Espinoza OT 08/21/2024 10:00 AM EST Office [place] [address] Caroline Espinoza OT documented as of this encounter Visit Diagnoses Diagnosis History of penile cancer- Primary documented in this encounter Care Teams Outdoor Adventure Guides Relationship Specialty Start Date End Date Shannan Arellano, BLOOD BANK ATTENDANT [facility] [place] [address] PCP - General Family Medicine 02/03/23 documented as of this encounter
--- OUTSIDE RECORDS SUMMARY | 2024-06-04 17:28 | XMS_ITS | Encounter Summary ---
Author Organization [facility] [place] [address] Care Team Providers Care Wirer Maintenance Name Role Phone Shannan Arellano GAYLE Primary Care Provider [phone] Encounter Details Date Type Department Care Team (Late st Contact Info) Description 11/21/2023 Telephone Hematology/Oncology at [address] [address] Nathalia Tse RN Social History Tobacco Use Types Packs/Day Years Used Date Smoking Tobacco: Never Smokeless Tobacco: Never Alcohol Use Standard Drinks/Week Comments Yes 1 (1 standard drink = 0.6 oz pur e alcohol) [facility] Utilities Answer Date Recorded In the [...] in a assisted (including now)? No 07/28/2023 IPV Inpatient Questions [...] as of this encounter Miscellaneous Notes * Addendum Note - Nathalia Tse RN - 11/22/2023 9:29 AM EDTAddended by: NATHALIA TSE on: 11/22/2023 09:29 AM Modules accepted: Orders * Telephone Encounter - Nathalia Tse RN - 11/21/2023 4:08 PM EDT Called pt and and left messages on both their phones to return my call. Need to ask them if ptis still on any blood thinners , Anali Cardenas needs to know to set him up for mediport removal as he nolonger requires to have it. called back and said he has been off eliquis for 2 weeks and not on any other blood thinners or aspirin. Anali Cardenas FORGE UTILITY WORKER updated. documented in this encounter Plan of Treatment Upcoming Encounters Date Type Department Care Team (Late st Contact Info) Description 06/07/2024 1:00 PM EST TH Visit (TeleHealth) [place] [address] Zachary Garcia MD [facility] [place] [address] 06/11/2024 9:00 AM EST Office [place] [address] Espinoza, Caroline E, OT 07/10/2024 8:00 AM EST Office [place] [address] Espinoza, Caroline E, OT 07/24/2024 10:00 AM EST Office [place] [address] Espinoza, Caroline E, OT 08/07/2024 10:00 AM EST Office [place] [address] Espinoza, Caroline E, OT 08/21/2024 10:00 AM EST Office [place] [address] Espinoza, Caroline E, OT documented as of this encounter Visit Diagnoses Not on filedocumented in this encounter Care Teams Wirer Maintenance Relationship Specialty Start Date End Date Shannan Arellano, [place] [address] PCP - General Family Medicine 02/03/23 documented as of this encounter
--- OUTSIDE RECORDS SUMMARY | 2024-06-04 17:28 | XMS_ITS | Encounter Summary ---
[place] [address] Care Team Providers Care Community Mental Health Worker Name Role Phone Shannan Arellano GAYLE Primary Care Provider [phone] Reason for Referral * Diagnostic Test (Routine) - Closed Specialty Diagnoses / Procedures Referred By Marry kelsey Referred To Contact Radiology Diagnoses Penile cancer Procedures NM PET CT Skull Base to Mid-thigh Rolly Peters MD [address] [place] [address] [place] [address] [place] [address] Referral ID Status Reason Start Date Expiration Date V isits Requested Visits Authorized [id number] Closed Specialty Service Requested 10/14/2023 04/14/2025 1 1 Reason for Visit * Diagnostic Test (Routine) - Closed Specialty Diagnoses / Procedures Referred By Marry kelsey Referred To Contact Radiology Diagnoses Penile cancer Procedures NM PET CT Skull Base to Mid-thigh Rolly Peters MD [address] [place] [address] [place] [address] [place] [address] Referral ID Status Reason Start Date Expiration Date V isits Requested Visits Authorized [id number] Closed Specialty Service Requested 10/14/2023 04/14/2025 1 1 Encounter Details Date Type Department Care Team (Latest Contact Info) Description 01/11/2024 11:10 AM EDT - 01/11/2024 11:59 PM EDT Hospital Encounter [place] [address] Rolly Peters MD [address] [place] [address] [place] [address] Penile cancer Discharge Disposition: Home Social History Tobacco Use Types Packs/Day Years Used Date Smoking Tobacco: Never Smokeless Tobacco: Never Alcohol Use Standard Drinks/Week Comments Yes 1 (1 standard drink = 0.6 oz pur e alcohol) [facility] Utilities Answer Date Recorded In the [...] mouth. 07/27/2023 fluticasone propionate (Flonase) 50 mcg/actuation [place], Suspension by Each Nare route daily. 07/27/2023 oxyCODONE (Roxicodone) 5 mg tablet Take 1 tablet by mouth every 4 hours as needed for Pain (for severe pain not controlled by tylenol/ibuprofen). 5 tablet 06/26/2023 documented as of this encounter Plan of Treatment Upcoming Encounters Date Type Department Care Team (Late st Contact Info) Description 06/07/2024 1:00 PM EST TH Visit (TeleHealth) [place] [address] Zachary Garcia MD [facility] [place] [address] 06/11/2024 9:00 AM EST Office [place] [address] Espinoza, Caroline E, OT 07/10/2024 8:00 AM EST Office Visit [place] [address] Espinoza, Caroline E, OT 07/24/2024 10:00 AM EST Office [place] [address] Espinoza, Caroline E, OT 08/07/2024 10:00 AM EST Office [place] [address] Espinoza, Caroline E, OT 08/21/2024 10:00 AM EST Office [place] [address] Espinoza, Caroline E, OT documented as of this encounter Procedures Procedure Name Priority Date/Time Associated Diagnosis Comments NM PET CT SKULL BASE TO MID-THIGH ([facility]) Routine 01/11/2024 1:06 PM EDT Penile cancer documented in this encounter Results * NM PET CT Skull Base to Mid-thigh (01/11/2024 1:06 PM EDT) WORKSTATION ID [id number] RAD Anatomical Region Laterality Modality Positron Emissio n Tomography (PET) Impressions 01/12/2024 11:38 AM EDT 1. ??Small focus of uptake in the base of the penis/penile urethra is nonspecific, favored to be inflammatory. Attention on follow-up. 2. ??Resolution of previously seen bilateral inguinal fluid collections which were mildly avid along the periphery. Thank you for letting us participate in the care of this patient. ??If you are a health care provider and have any questions regarding this report, please contact the number below. ??For patients who have questions please contact the health children's zoo caretaker that requested your imaging first. ? Narrative 01/12/2024 11:38 AM EDT EXAMINATION: NM PET CT STANDARD SKULL BASE TO MID-THIGH CLINICAL HISTORY: Genital cancer, assess treatment response C60.9, Malignant neoplasm of penis, unspecified TECHNIQUE: Following IV injection of 14-udantp-7-deoxyglucose (FDG) a standard uptake of approximately 60 minutes, a noncontrast CT scan followed by a PET scan were acquired from the base of the skull to mid thighs. The noncontrast CT was used for anatomic localization and photon attenuation correction of the PET scan. Blood glucose level: 106 (mg/dL) FDG dose: 11.1 mCi COMPARISON: FDG PET/CT 08/15/2023, 07/01/2023. MRI of the pelvis 04/22/2023. FINDINGS: HEAD AND NECK: BRAIN AND EXTRA-AXIAL SPACES (WHERE INCLUDED): No abnormal uptake. ORBITS: No abnormal uptake. PARANASAL SINUSES: No abnormal uptake. MASTOIDS: No abnormal uptake. AERODIGESTIVE TRACT: No abnormal uptake. SALIVARY GLANDS: No abnormal uptake. THYROID: No abnormal uptake. VASCULATURE: No abnormal uptake. LYMPH NODES: No abnormal uptake. THORAX: LUNGS: No abnormal uptake. PLEURA: No abnormal uptake. AIRWAYS: No abnormal uptake. MEDIASTINUM: No abnormal uptake. HEART AND VASCULATURE: No abnormal uptake. LYMPH NODES: No abnormal uptake. BREASTS/CHEST WALL: No abnormal uptake. ABDOMEN AND PELVIS: LIVER: No abnormal uptake. Fatty liver. BILIARY SYSTEM: No abnormal uptake. PANCREAS: No abnormal uptake. SPLEEN: No abnormal uptake. ADRENALS: No abnormal uptake. KIDNEYS AND URETERS: No abnormal uptake. Cyst in the right kidney lower pole. URINARY BLADDER: No abnormal uptake. REPRODUCTIVE: Small focus of uptake at the base of the penis measuring SUV max 5.1 (image 272), nonspecific.. Moderate stranding and edema in the scrotal sac. Moderate left hydrocele. GI: No abnormal uptake. A few colonic diverticulosis. OMENTUM, MESENTERY, PERITONEUM, RETROPERITONEUM: No abnormal uptake. VASCULATURE: No abnormal uptake. Mild vascular calcifications in the aorta and branch vessels. LYMPH NODES: No abnormal uptake. MUSCULOSKELETAL: Skin thickening associated abnormal uptake in the anterior upper right chest (image 60), likely inflammatory. Subcutaneous edema bilateral visualize thighs. Procedure Note Santos Lion MD - 01/12/2024 EXAMINATION: NM PET CT STANDARD SKULL BASE TO MID-THIGH CLINICAL HISTORY: Genital cancer, assess treatment response C60.9, Malignant neoplasm of penis, unspecified TECHNIQUE: Following IV injection of 14-rvakwz-1-deoxyglucose (FDG) astandard uptake of approximately 60 minutes, a noncontrast CT scan followed by aPET scan were acquired from the base of the skull to mid thighs. The noncontrast CTwas used for anatomic localization and photon attenuation correction of thePET scan. Blood glucose level: 106 (mg/dL) FDG dose: 11.1 mCi COMPARISON: FDG PET/CT 08/15/2023, 07/01/2023. MRI of the pelvis 04/22/2023. FINDINGS: HEAD AND NECK: BRAIN AND EXTRA-AXIAL SPACES (WHERE INCLUDED): No abnormal uptake. ORBITS: No abnormal uptake. PARANASAL SINUSES: No abnormal uptake. MASTOIDS: No abnormal uptake. AERODIGESTIVE TRACT: No abnormal uptake. SALIVARY GLANDS: No abnormal uptake. THYROID: No abnormal uptake. VASCULATURE: No abnormal uptake. LYMPH NODES: No abnormal uptake. THORAX: LUNGS: No abnormal uptake. PLEURA: No abnormal uptake. AIRWAYS: No abnormal uptake. MEDIASTINUM: No abnormal uptake. HEART AND VASCULATURE: No abnormal uptake. LYMPH NODES: No abnormal uptake. BREASTS/CHEST WALL: No abnormal uptake. ABDOMEN AND PELVIS: LIVER: No abnormal uptake. Fatty liver. BILIARY SYSTEM: No abnormal uptake. PANCREAS: No abnormal uptake. SPLEEN: No abnormal uptake. ADRENALS: No abnormal uptake. KIDNEYS AND URETERS: No abnormal uptake. Cyst in the right kidney lowerpole. URINARY BLADDER: No abnormal uptake. REPRODUCTIVE: Small focus of uptake at the base of the penis measuring SUVmax 5.1 (image 272), nonspecific.. Moderate stranding and edema in the scrotalsac. Moderate left hydrocele. GI: No abnormal uptake. A few colonic diverticulosis. OMENTUM, MESENTERY, PERITONEUM, RETROPERITONEUM: No abnormal uptake. VASCULATURE: No abnormal uptake. Mild vascular calcifications in the aortaand branch vessels. LYMPH NODES: No abnormal uptake. MUSCULOSKELETAL: Skin thickening associated abnormal uptake in the anterior upper rightchest (image 60), likely inflammatory. Subcutaneous edema bilateral visualizethighs. IMPRESSION 1. Small focus of uptake in the base of the penis/penile urethra is nonspecific, favored to be inflammatory. Attention on follow-up. 2. Resolution of previously seen bilateral inguinal fluid collectionswhich were mildly avid along the periphery. Thank you for letting us participate in the care of this patient. If youare a health care provider and have any questions regarding this report,please contact the number below. For patients who have questions please contactthe health children's zoo caretaker that requested your imaging first. Electronically signed by: Santos Lion [facility] ([phone]),at 01/12/2024 11:38 AM Rolly Peters MD IMG PET ORDERABLES documented in this encounter Visit Diagnoses Diagnosis Penile cancer Malignant neoplasm of penis, part unspecified documented in this encounter Administered Medications Inactive Administered Medications - up to 3 most recent administrations Medication Order MAR Action Action Date Dose Rate Site fludeoxyglucose (F-18) FDG injection 0-20 mCi 0-20 mCi, Intravenous, ONCE PRN, 1 dose, Starting on Tue01/11/24 at 1133, Until Tue01/11/24 at 1133, Per Protocol, Radiology Contrast, Routine Given 01/11/2024 11:33 AM EDT 11.1 mCi Right Arm documented in this encounter Care Teams Community Mental Health Worker Relationship Specialty Start Date End Date Shannan Arellano, FLATWORK FINISHER Guerre[facility] [place] [address] PCP - General Family Medicine 02/03/23 documented as of this encounter
--- OUTSIDE RECORDS SUMMARY | 2024-06-04 17:28 | XMS_ITS | Encounter Summary ---
Author Organization [facility] Address [facility] [address] Care Team Providers Care Desk Reporter Name Role Phone Shannan Arellano GAYLE Primary Care Provider [phone] Reason for Visit * Physical Therapy (Routine) - Authorized Specialty Diagnoses / Procedures Referred By Marry kelsey Referred To Contact Physical Therapy Diagnoses Penile cancer Zachary Garcia MD [facility] [place] [address] [facility] [place] [address] Referral ID Status Reason Start Date Expiration Date Visits Requested Visits Authorized [id number] Authorized Evaluate and Treat 05/17/2023 06/15/2024 100 100 Encounter Details Date Type Department Care Team (Late st Contact Info) Description 01/24/2024 9:00 AM EDT Office Visit [place] [address] Caroline Espinoza, OT Lymphedema; 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 No 07/28/2023 DH IPV Inpatient [...] - Therapy - Caroline Espinoza OT - 01/24/2024 9:00 AM EDTSummary: OT/CLT LE LYMPHEDEMA TREATMENT NOTE OT/CLT LE LYMPHEDEMA Treatment NOTE Date of Exam/First treatment: 05/31/23 Date [...] since 05/31/23 . Patient has been consistent with compression wear, elevation, dietary changes, MLD and adjunct fluid management techniques . He continues to have difficulty with lymphedema control particularly with his pelvic, trunk and scrotal areas as well as bilateral LE L>R. He would at this point benefit from sequential compression pumps for B LE and trunk. Referral for such place with [facility] for follow through. PRECAUTIONS: activity as tolerated SOCIAL SUPPORTS: Patient lives with spouse, Kate, 6 children 30 years. Does not smoke. Anddrinks rarely ENVIRONMENT: I at home with out DME PATIENT STATED GOAL: I want to get back to work and doing what I like to do. CURRENT ACTIVITY LEVEL: Active lifestyle and work. 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 PAIN: Occasional [...] radiation. NO hyperplasia, hyperkeratosis, or papillomas noted Moderate fibrotic tissue changes noted groin, pelvis and upper thigh L>R LE. R LE often having lymphedema through to ankle.Continues with scrotal lymphedema. Reviewed S/S of cellulitis. Patient and spouse [...] 11/22/23 Left 11/22/23 Right 01/24/24 Left 01/24/24 Mid foot 22.8 23.2 23.3 23.1 22.5 23.6 22.3 23.5 22.5 23.5 23 24.7 Ankle 25.4 24 22.8 22.6 24 24.1 23 24.5 22.6 26 23.9 27.1 Calf 33 35.3 35 35.3 31.7 34.8 34.7 35.8 35.5 34.6 31.1 35 D 32.3 31.8 32.5 32 33.5 33 33 32.8 32.5 33.2 32.9 35.2 Knee 35.7 35.5 35.7 36.2 36.8 37.2 36.4 37.5 36.2 38.4 36.4 41.2 Knee +12 45.3 46.8 41.5 45.6 46.7 47 45.2 46 46.5 49.7 47.1 48.6 Upper thigh G 55 53.4 52.3 57 51.2 52 51.5 51.8 51.7 54.2 53.6 57.3 A-D Length 38 A-G Length 75 Waist 87.5 cm HIPS 95.2 cm Patient continues with persistent scrotal and pelvis lymphedema even with follow through with all techniques taught. Utilizing JUZO 20-30 MMhG compression short size II capris Compression bike short. Wearing during the day at times Patient is also using Jobst relax tights 20-30 mmHg footless/footed [...] reduction. Scar management techniques. SCD trial indicated Clinical presentation: Stable Evolving Unstable X X [...] 11/22/23 6. SCD trial. Referral sent to [facility] Goals 12 weeks 1. Patient will demonstrate [...] current techniques not enough. Referral sent to [facility]. New Jobst tights ordered. Education and training for LE muscle pump HEP. Has written information. Excellent follow through. PLAN: OT/CLT SERVICES 1x/month x 3 months Adding or tapering visits as needed. Treatment: manual lymphatic drainage Exercise- muscle pump HEP teaching self care garment fitting- Bioflex Orly and Jobst compression shorts. Patient alternates. Patient has scrotal swell packs/channel foam to minimize scrotal edema.Pending new Jobst tights. Adjunct fluid management techniques SCD trial has been initiated. . Charges Minutes OT EVAL LOW (34045) OT EVAL MOD (37493) OT EVAL HIGH (74252) MANUAL THERAPY(08522) 45 SELF CARE/HOME MANAGEMENT (13507) THERAPEUTIC/FUNCTIONAL ACTIVITIES(17034) THEREX NEUROMUSCULAR BINA(08222) THEREX: STRENGTH ROM (43370) 15 Caroline Espinoza, OT/CLT ADVANCED PNEUMATIC COMPRESSION [...] in addition to hip and waist. See measurementsembedded above. Right Leg Left Leg Ankle cm [...] PM EST TH Visit (TeleHealth) [place] [address] Zachary Garcia MD [facility] [place] [address] 06/11/2024 9:00 AM EST Office Visit [place] [address] Caroline Espinoza, OT 07/10/2024 8:00 AM EST Office Visit [place] [address] Caroline Espinoza, OT 07/24/2024 10:00 AM EST Office Visit [place] [address] Caroline Espinoza, OT 08/07/2024 10:00 AM EST Office Visit [place] [address] Caroline Espinoza, OT 08/21/2024 10:00 AM EST Office Visit [place] [address] Caroline Espinoza, OT documented as of this encounter Visit Diagnoses Diagnosis Lymphedema Other lymphedema 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
--- OUTSIDE RECORDS SUMMARY | 2024-06-04 17:29 | XMS_ITS | Encounter Summary ---
Author Organization [facility] Address [facility] [place] [address] Care Team Providers Care Hydrate Thickener Operator Name Role Phone hSannan Arellano APRN Primary Care Provider [phone] Encounter Details Date Type Department Care Team (Latest Contact Info) Description 09/30/2023 Travel Social History Tobacco Use Types Packs/Day Years Used Date Smoking Tobacco: Never Smokeless Tobacco: Never Alcohol Use Standard Drinks/Week Comments Yes 1 (1 standard drink = 0.6 oz pur e alcohol) [facility] Utilities Answer Date Recorded In the past 12 months has th e electric, gas, oil, or water [employer] threatened to shut off services in your [...] PM EST TH Visit (TeleHealth) [place] [address] Zachary Garcia MD [facility] [place] [address] 06/11/2024 9:00 AM EST Office Visit [place] [address] EspinozaTia de la torreyl E, OT 07/10/2024 8:00 AM EST Office Visit [place] [address] Espinoza, Caroline E, OT 07/24/2024 10:00 AM EST Office Visit [place] [address] Espinoza, Caroline E, OT 08/07/2024 10:00 AM EST Office Visit [place] [address] Espinoza, Caroline E, OT 08/21/2024 10:00 AM EST Office Visit [place] [address] Caroline Espinoza, OT documented as of this encounter Visit Diagnoses Not on filedocumented in this encounter Care Teams Hydrate Thickener Operator Relationship Specialty Start Date End Date Shannan Arellano, [place] [address] PCP - General Family Medicine 02/03/23 documented as of this encounter
--- OUTSIDE RECORDS SUMMARY | 2024-06-04 17:29 | XMS_ITS | Encounter Summary ---
Author Organization [facility] Address [facility] [address] Care Team Providers Care Quality Control Checker Name Role Phone Shannan Arellano APRN Primary Care Provider Encounter Details Date Type Department Care Team (Latest Contact Info) Description 09/21/2023 Travel Social History Tobacco Use Types Packs/Day Years Used Date Smoking Tobacco: Never Smokeless Tobacco: Never Alcohol Use Standard Drinks/Week Comments Yes 1 (1 standard drink = 0.6 oz pur e alcohol) [facility] Utilities Answer Date Recorded In the past 12 months has th e electric, gas, oil, or water [employer] threatened to shut off services in your [...] PM EST TH Visit (TeleHealth) [place] [address] Zachary Garcia MD [facility] [place] [address] 06/11/2024 9:00 AM EST Office Visit [place] [address] EspinozaTia de la torreyl E, OT 07/10/2024 8:00 AM EST Office Visit [place] [address] Espinoza, Caroline E, OT 07/24/2024 10:00 AM EST Office [place] [address] Espinoza, Caroline E, OT 08/07/2024 10:00 AM EST Office [place] [address] Espinoza, Caroline E, OT 08/21/2024 10:00 AM EST Office Visit [place] [address] Caroline Espinoza, OT documented as of this encounter Visit Diagnoses Not on filedocumented in this encounter Care Teams Quality Control Checker Relationship Specialty Start Date End Date Shannan Arellano, [place] [address] PCP - General Family Medicine 02/03/23 documented as of this encounter
--- OUTSIDE RECORDS SUMMARY | 2024-06-04 17:29 | XMS_ITS | Encounter Summary ---
Author Organization [facility] Address [facility] [address] Care Team Providers Care Ice Cream Scooper Name Role Phone Shannan Arellano APRN Primary Care Provider [phone] Encounter Details Date Type Department Care Team (Latest Contact Info) Description 09/26/2023 Travel Social History Tobacco Use Types Packs/Day Years Used Date Smoking Tobacco: Never Smokeless Tobacco: Never Alcohol Use Standard Drinks/Week Comments Yes 1 (1 standard drink = 0.6 oz pur e alcohol) [facility] Utilities Answer Date Recorded In the past 12 months has th e electric, gas, oil, or water [employer] threatened to shut off services in [...] PM EST TH Visit (TeleHealth) [place] [address] Zachary Garcia MD [facility] [place] [address] 06/11/2024 9:00 AM EST Office Visit [place] [address] EspinozaTia de la torreyl E, OT 07/10/2024 8:00 AM EST Office Visit [place] [address] Espinoza, Caroline E, OT 07/24/2024 10:00 AM EST Office Visit [place] [address] Espinoza, Caroline E, OT 08/07/2024 10:00 AM EST Office Visit [place] [address] Espinoza, Caroline E, OT 08/21/2024 10:00 AM EST Office Visit [place] [address] Caroline Espinoza, OT documented as of this encounter Visit Diagnoses Not on filedocumented in this encounter Care Teams Ice Cream Scooper Relationship Specialty Start Date End Date Shannan Arellano, [place] [address] PCP - General Family Medicine 02/03/23 documented as of this encounter
--- OUTSIDE RECORDS SUMMARY | 2024-06-04 17:29 | XMS_ITS | Encounter Summary ---
Author Organization [facility] Address [facility] [place] [id number] Care Team Providers Care Performance Improvement Director Name Role Phone Shannan Arellano APRN Primary Care Provider [phone] Reason for Visit * Reason Comments IV Access Port flush Encounter Details Date Type Department Care Team (Late st Contact Info) Description 09/21/2023 1:00 PM EDT Infusion Hematology Oncology at [address] [phone] Penile cancer Social History Tobacco Use Types Packs/Day Years Used Date Smoking Tobacco: Never Smokeless Tobacco: Never Alcohol Use Standard Drinks/Week Comments Yes 1 (1 standard drink = 0.6 oz pur e alcohol) [facility] Utilities Answer Date Recorded In [...] as of this encounter Progress Notes * Citlaly Blanton RN - 09/21/2023 1:00 PM EDT INFUSION THERAPY ADMINISTRATION NOTES DIAGNOSIS: Penile CA REASON FOR VISIT: MEDIPORT FLUSH ONLY IV ACCESS: Mediport GAUGE: 19G BLOOD RETURN: yes ANY S/S OF INFECTION/EXTRAVASATIONS: no signs of IV complications observed IV FLUSHED WITH: 20cc NS IV DISCONTINUED: yes ASSESSMENT: Patient tolerated treatment well. PLAN: Return to clinic per routine. documented in this encounter Plan of Treatment Upcoming Encounters Date Type Department Care Team (Late st Contact Info) Description 06/07/2024 1:00 PM EST TH Visit (TeleHealth) [place] [address] Zachary Garcia MD [facility] [place] [address] 06/11/2024 9:00 AM EST Office Visit [place] [address] Espinoza, Caroline E, OT 07/10/2024 8:00 AM EST Office Visit [place] [address] Espinoza, Caroline E, OT 07/24/2024 10:00 AM EST Office Visit [place] [address] Espinoza, Caroline E, OT 08/07/2024 10:00 AM EST Office Visit [place] [address] Espinoza, Caroline E, OT 08/21/2024 10:00 AM EST Office Visit [place] [address] Espinoza, Caroline E, OT documented as of this encounter Visit Diagnoses Diagnosis Penile cancer Malignant neoplasm of penis, part unspecified documented in this encounter Care Teams Performance Improvement Director Relationship Specialty Start Date End Date Shannan Arellano, CAR CLEAN[place] [place] [address] PCP - General Family Medicine 02/03/23 documented as of this encounter
--- OUTSIDE RECORDS SUMMARY | 2024-06-04 17:29 | XMS_ITS | Encounter Summary ---
Author Organization [facility] Address [facility] [place] [address] Care Team Providers Care Control Room Tender Name Role Phone Shannan Arellano GAYLE Primary Care Provider [phone] Encounter Details Date Type Department Care Team (Late st Contact Info) Description 09/20/2023 1:30 PM EDT Office Visit Hematology/Oncology at [address] [phone] Lucinda Cardenas APRN [facility] [place] [address] Penile cancer; Fatigue, unspecified type; Thrombocytopenia Social History Tobacco Use Types Packs/Day Years Used Date Smoking Tobacco: Never Smokeless Tobacco: Never Alcohol Use Standard Drinks/Week Comments Yes 1 (1 standard drink = 0.6 oz pur e alcohol) [facility] Utilities Answer Date Recorded In [...] in a intermediate (including now)? No 07/28/2023 DH IPV Inpatient [...] Sign Reading Time Taken Comments Blood Pressure 119/71 09/20/2023 1:34 PM EDT Pulse 58 09/20/2023 1:34 PM EDT Temperature 36.7 ??C (98 ??F) 09/20/2023 1:34 PM EDT Respiratory Rate 18 09/20/2023 1:34 PM EDT Oxygen Saturation 99% 09/20/2023 1:34 PM EDT Inhaled Oxygen Concentration - - Weight 74.9 kg (165 lb 3.2 oz) 09/20/2023 1:34 P M EDT Height 172.7 cm (5' 7.99) 09/20/2023 1:34 PM ED T Body Mass Index 25.12 09/20/2023 1:34 PM EDT documented in this encounter Progress Notes * Lucinda Cardenas, GAYLE - 09/20/2023 1:30 PM EDT Images from the original note were not included. Diagnosis: Penile cancer HPI:Eduardo Contreras is 73 y.o.M referred by Dr. Garcia for consultation on adjuvant treatment with locally advanced penile cancer. Oncological history (copied from Dr. Garcia notes): ~ 1 year ago He started to void spraying and noticed a lump about 3 months 01/03/2023 Cyto/urethral dilitation/Bx 05/09/2023 Cystoscopy/penile biopsy/groin FNA Path Invasive carcinoma with squamoid features. LEFT Groin node FNA Positive 06/21/2023 Positive left inguinal and left external iliac lymph nodes seen on PET. 06/24/2023 Local excision and penile glans reconstruction/neomeatus/ Bilateral Groin dissection Left lap pelvic node dissection Path: [id number] poorly differentiated penile cancer 4/10 Left inguinal and 3/13 Left pelvic nodes. 0/8 Right nodes. Margins Negative (to be confirmed at tumor board review) 07/19/23 readmitted s/p b/l inguinal surgical drains which was complicated by bilateral groin/thigh subcutaneous fluid collections s/p 10Fr drains (07/20 - cultures grew beta hemolytic streptococci & acinetobacter junii). S/p treatment with antibiotics. Drains have been removed. Interval history 09/13/23:Eduardo Contreras is in clinic for follow-up. He is scheduled for mitomycin/5-fu C2 tomorrow. He has fatigue and general malaise, but feels better since getting the pump off. Dry cracking lips secondary to the 5-fu resolved with aquaphor. No mouth sores or difficulty eating ordrinking. He has swelling to his groin, thigh and scrotum and LE occasionally and continues to wearcompression and sees PT. No fever or chills or signs of infection. He has urgency and pasty stools from the RT and is using fiber. Has imodium if he develops diarrhea. Appetite is good. Complains of dry mouth. Denies any pain. The remainder of his review of systems reviewed and is negative. 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 The patient has been for 30 yearswith 6 children (between them) . The patient drinks occasionally. He is here today with his . Allergies: No Known Allergies Medications: Your Medications Accurate as of September 20, 2023 3:56 PM. If you have any questions, ask your nurse or doctor. Continued medications, unchanged Dose Details acetaminophen 325 mg tablet Commonly known as: Tylenol Take 650 mg by mouth as needed for Pain. Maybe once a week 650 mg Refills: 0 apixaban 5 mg tablet Commonly known as: Eliquis Take 1 tablet by mouth 2 times daily. 1 tablet Refills: 0 famotidine 40 mg tablet Commonly known as: Pepcid Take 40 mg by mouth. 40 mg Refills: 0 fluticasone propionate 50 mcg/actuation [place], Suspension Commonly known as: Flonase by Each Nare route daily. Refills: 0 lidocaine-prilocaine Cream Commonly known as: EMLA Apply topically as needed. Quantity: 30 g Refills: 1 loperamide 2 mg Tablet Commonly known as: IMODIUM A-D Take by mouth 4 times daily as needed for Diarrhea. Maximum 16 mg in 24 hours Refills: 0 oxyCODONE 5 mg tablet Commonly known as: Roxicodone Take 1 tablet by mouth every 4 hours as needed for Pain (for severe pain not controlled by tylenol/ibuprofen). 5 mg Quantity: 5 tablet Refills: 0 prochlorperazine 10 mg tablet Commonly known as: Compazine Take 1 tablet by mouth every 6 hours as needed for Nausea. 10 mg Quantity: 30 tablet Refills: 3 Review of Systems: As in interval history PE: Constitutional: NAD HENT: Head: NCAT Eyes: Non-injected, anicteric. Mouth: dry, no mucositis or thrush. Neck: No lymphadenopathy Cardiovascular: RRR, no murmur. Resp: Effort normal. No respiratory distress. CTA Lymph: No palpable lymph nodes in cervical, supraclavicular, axillary areas. Abdominal: Soft, NT, ND, BS+ Extremities: BLE swelling (R>L) is improved since surgery and with compression and PT. BP 119/71 (Patient Position: Sitting) Pulse 58 Temp 36.7 ??C (98 ??F) (Temporal) Resp 18 Ht172.7 cm (5' 7.99) Wt 74.9 kg (165 lb 3.2 oz) SpO2 99% BMI 25.12 kg/m?? Pathology: 06/24/23 DIAGNOSIS A - Penile foreskin, excision: No evidence of high-grade dysplasia or malignancy. 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 C - Additional glans penis, excision: No evidence of malignancy. D - Right inguinal lymph nodes, excision: Eight lymph nodes, no evidence of malignancy (0/8). E - Left inguinal lymph nodes, excision: Metastatic carcinoma in four of ten lymph nodes (4/10). F - Left pelvic lymph nodes, excision: Metastatic carcinoma in three of thirteen lymph nodes (3/13). CR-0 Electronically signed by: Terrell BARRON, Ignacio Ennis Verified: 07/06/2023 11:48 Pathologist Performed at: -[facility] Dept. of Pathology, [place] [address] Ward Maid: Corbin Doll MD, [facility], [facility] Certificate: [id number] SYNOPTIC Specimen Procedure: Wide local excision of ventral glans penis and distal aspect of urethra Foreskin: Cannot be determined - Foreskin separately removed (Specimen A) Tumor Tumor Focality: Unifocal Tumor Site: Glans Tumor Size: 0.8 Centimeters (cm) Histologic Type: HPV-associated squamous cell carcinoma - Cannot be determined Histologic Grade: G3, poorly differentiated Tumor Extent: Glans Glans: Invades corpus spongiosum Lymphatic and / or Vascular Invasion: Not identified Perineural Invasion: Not identified Margins Margin Status for Invasive Carcinoma: Cannot be determined - Tumor with cautery artifact present focally at margin of blue-inked area of concern (section B2); Additional separately submitted glans penis (specimen C) free of tumor Margin Status for Noninvasive Carcinoma / Carcinoma in Situ: All margins negative for non-invasive carcinoma / carcinoma in situ Regional Lymph Nodes . SYNOPTIC Regional Lymph Node Status: Tumor present in regional lymph node(s) Number of Lymph Nodes with Tumor: 7 Mana Site(s) with Tumor: Inguinal - Left; Pelvic - Left Number of Inguinal Lymph Nodes with Tumor: 4 Laterality of Inguinal Lymph Node(s) with Tumor: Unilateral Extranodal Extension: Not identified Number of Lymph Nodes Examined: 31 pTNM Classification (AJCC 8th Edition) pT Category: pT2 pN Category: pN3 Special Studies p16 Immunohistochemistry: Positive Best Tumor Blocks for Future Studies Tumor Block(s): B3, B4, B6 Normal Block(s): N/A CAP [facility] 2022 Q3 Release DISCUSSION The infiltrating carcinoma is comprised of nests and coalescing cords/trabeculae of tumor cells with generally vesicular nuclei and small nucleoli often associated with a dense infiltrate of lymphocytic cells and/or a myxoid-like stroma. The tumor cells are more cohesive and patterned than typically described in lymphoepithelioma-like carcinoma and lack the mixed inflammatory cell infiltrate that is more typical of penile medullary carcinoma. The subtype of HPV-associated squamous cell carcinoma is not clearly discernible and the histomorphologic features are not unequivocally characteristic of any of the described subtypes of HPV-associated penile squamous cell carcinomas (ie, basaloid, warty, clear cell, lymphoepithelioma-like, or medullary subtypes). Labs: 09/20/23: WBC 2.68, hemoglobin 11.5, platelet count 101, ANC 1.41, BUN 16, creatinine 0.9, TB 0.3, alkaline phosphatase 64, sodium 141, potassium 4.1, AST 22, ALT 28, 08/09/2023 WBC 6.96, hemoglobin 13.2, platelet count 364, ANC 4.54, BUN 21, creatinine 1.0, TB 0.2, alkaline phosphatase 78, sodium 142, potassium 4.2, AST 18, ALT 28, Imagin08/15/23 PET scan: IMPRESSION 1. Metastases are no longer seen. 2. There are post-operative changes in the pelvis with fluid collections with peripheral FDG avidity. These may represent areas of inflammation or abscesses but there has been partial improvement since the previous study. 06/21/23 PET scan: IMPRESSION 1. Mana metastases in the left inguinal, left distal external iliac, and left anterior obturator regions. 2. No distant sites of metastasis. 3. The primary malignancy in the distal urethra is not evident on this exam, likely due to its small size and location. Assessment and Plan: Diagnosis:[id number] poorly diff penile cancer sp local excision and bilateral node dissection. 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 Positive nodes - 7 total. No evidence of extra-mana disease. This case was discussed on tumor board with recommendation for adjuvant concurrent chemoradiation. Mr. Contreras has locally advanced penile cancer. There is limited data on adjuvant treatment with concurrent chemoradiation. In most small studies cisplatin was used as a radiosensitizing agent. . There is a data on use of mitomycin-C in combination with 5-FU in case reports, so well is extrapolated from the time of bladder cancer, vaginal cancer and anal cancer with relatively high rate of success. He was informed of side effects of chemotherapy which include but not limited to nausea, vomiting, fatigue, low blood counts requiring transfusion, allergic reaction, diarrhea, mouth sores, pain, infection including life-threatening infection. All questions were answered to patient satisfaction. 08/16/2023 PET scan: Report is pending, personally reviewed. I do not see any evidence of metastaticdisease but will wait for official report. We again discussed benefits and risk of chemotherapy with Mitomycin-C and 5-FU. All questions were answered to patient's satisfaction. Will arrange Mediport placement. He will see Dr. Peters on August 23. Will start chemotherapy on the first day of radiation. 08/23/23 Eduardo is seen today for chemotherapy teach. He elects treatment with Mitomycin-C/F-fu with concurrent RT. Chemotherapy to start same day as RT. He will see RT tomorrow for Sim. Mediport to be placed this week. 09/13/23 Eduardo is seen today s/p mitomycin/5-fu C1. Continues with concomitant RT. Tolerating treatment well other than fatigue and mild dry, cracking lips and hands and feet. 09/20/23 Eduardo is seen today for follow up visit. He is scheduled for mitomycin/5- fu C2 tomorrow. Continues with RT. ANC is low at 1.41. PLT = 101. Will delay treatment one week and repeat labs next week prior to treatment. Of note, he continues on Eliquis and we will need to monitor platelet counts closely on anticoagulation. #CINV, mild: compazine helps. #Post op lymphedema and scrotal swelling: Improved, continues with compression and follows with PT. #fatigue: secondary to treatment, tolerable and remains active. #Dry, cracked skin to his lips and finger tips: resolved now, secondary to treatment, mild. Will continue with aquaphor PRN #Anticoagulation: continues Eliquis. Of note, we will need to monitor PLT counts closely on the Eliquis. Currently no problems with bleeding. Plan: Hold mitomycin/5-fu. F/u next week on 09/26, labs prior to visit. Mitomycin/5-fu C2 to begin on 09/28/23 if counts ok for treatment. Continue RT Aquaphor for dry, cracked lips and skin on hands and feet Lucinda Cardenas APRN 30 minutes were spent on date of visit, including non-face to face time. documented in this encounter Plan of Treatment Upcoming Encounters Date Type Department Care Team (Late st Contact Info) Description 06/07/2024 1:00 PM EST TH Visit (TeleHealth) [place] [address] Zachary Garcia MD [facility] [place] [address] 06/11/2024 9:00 AM EST Office Visit [place] [address] Caroline Espinoza, OT 07/10/2024 8:00 AM EST Office Visit [place] [address] Caroline Espinoza, OT 07/24/2024 10:00 AM EST Office Visit [place] [address] Caroline Espinoza E, OT 08/07/2024 10:00 AM EST Office Visit [place] [address] Caroline Espinoza, OT 08/21/2024 10:00 AM EST Office Visit [place] [phone] Caroline Espinoza OT documented as of this encounter Visit Diagnoses Diagnosis Penile cancer Malignant neoplasm of penis, part unspecified Fatigue, unspecified type Thrombocytopenia Thrombocytopenia, unspecified documented in this encounter Care Teams Control Room Tender Relationship Specialty Start Date End Date Shannan Arellano, HAT [employer] [place] [address] [place] [address] PCP - General Family Medicine 02/03/23 documented as of this encounter
--- OUTSIDE RECORDS SUMMARY | 2024-06-04 17:29 | XMS_ITS | Encounter Summary ---
Author Organization [facility] Address [facility] [address] Care Team Providers Care Personnel Arbitrator Name Role Phone Shannan Arellano APRN Primary Care Provider [phone] Encounter Details Date Type Department Care Team (Latest Contact Info) Description 10/05/2023 Travel Social History Tobacco Use Types Packs/Day Years Used Date Smoking Tobacco: Never Smokeless Tobacco: Never Alcohol Use Standard Drinks/Week Comments Yes 1 (1 standard drink = 0.6 oz pur e alcohol) [facility] Utilities Answer Date Recorded In the past 12 months has th e electric, gas, oil, or water [employer] threatened to shut off services in your [...] place to sleep or slept in a half-way (including now)? No 07/28/2023 IPV Inpatient Questions [...] PM EST TH Visit (TeleHealth) [place] [address] Zachary Garcia MD [facility] [place] [address] 06/11/2024 9:00 AM EST Office Visit [place] [address] EspinozaTia de la torreyl E, OT 07/10/2024 8:00 AM EST Office Visit [place] [address] Espinoza, Caroline E, OT 07/24/2024 10:00 AM EST Office Visit [place] [address] Espinoza, Caroline E, OT 08/07/2024 10:00 AM EST Office Visit [place] [address] Espinoza, Caroline E, OT 08/21/2024 10:00 AM EST Office Visit [place] [address] Caroline Espinoza, OT documented as of this encounter Visit Diagnoses Not on filedocumented in this encounter Care Teams Personnel Arbitrator Relationship Specialty Start Date End Date Shannan Arellano, [place] [address] PCP - General Family Medicine 02/03/23 documented as of this encounter
--- OUTSIDE RECORDS SUMMARY | 2024-06-04 17:29 | XMS_ITS | Encounter Summary ---
Author Organization [facility] Address [facility] [address] Care Team Providers Care Grades 9 12 Tutor Name Role Phone Shannan Arellano APRN Primary Care Provider [phone] Encounter Details Date Type Department Care Team (Latest Contact Info) Description 10/14/2023 Travel Social History Tobacco Use Types Packs/Day Years Used Date Smoking Tobacco: Never Smokeless Tobacco: Never Alcohol Use Standard Drinks/Week Comments Yes 1 (1 standard drink = 0.6 oz pur e alcohol) [facility] Utilities Answer Date Recorded In the past 12 months has th e electric, gas, oil, or water [employer] threatened to shut off services in your [...] PM EST TH Visit (TeleHealth) [place] [address] Zachary Garcia MD [facility] [place] [address] 06/11/2024 9:00 AM EST Office Visit [place] [address] EspinozaTia de la torreyl E, OT 07/10/2024 8:00 AM EST Office [place] [address] Espinoza, Caroline E, OT 07/24/2024 10:00 AM EST Office [place] [address] Espinoza, Caroline E, OT 08/07/2024 10:00 AM EST Office [place] [address] Espinoza, Caroline E, OT 08/21/2024 10:00 AM EST Office [place] [address] Caroline Espinoza, OT documented as of this encounter Visit Diagnoses Not on filedocumented in this encounter Care Teams Grades 9 12 Tutor Relationship Specialty Start Date End Date Shannan Arellano, [employer] [place] [address] PCP - General Family Medicine 02/03/23 documented as of this encounter
--- OUTSIDE RECORDS SUMMARY | 2024-06-04 17:29 | XMS_ITS | Encounter Summary ---
Author Organization [facility] [place] [address] Care Team Providers Care Heat Welder Plastics Name Role Phone Shannan Arellano APRN Primary Care Provider [phone] Encounter Details Date Type Department Care Team (Late st Contact Info) Description 10/07/2023 2:15 PM EDT Office Visit Radiation Oncology at [address] [phone] Rolly Peters MD [address] [place] [address] [place] [address] Penile cancer Social History Tobacco Use Types Packs/Day Years Used Date Smoking Tobacco: Never Smokeless Tobacco: Never Alcohol Use Standard Drinks/Week Comments Yes 1 (1 standard drink = 0.6 oz pur e alcohol) [facility] Utilities Answer Date Recorded [...] Sign Reading Time Taken Comments Blood Pressure 107/69 10/07/2023 2:13 PM EDT Pulse 95 10/07/2023 2:13 PM EDT Temperature 37.2 ??C (99 ??F) 10/07/2023 2:13 PM EDT Respiratory Rate 16 10/07/2023 2:13 PM EDT Oxygen Saturation 97% 10/07/2023 2:13 PM EDT Inhaled Oxygen Concentration - - Weight 72.3 kg (159 lb 6.4 oz) 10/07/2023 2:13 P M EDT Height - - Body Mass Index 24.24 09/27/2023 2:45 PM EDT documented in this encounter Progress Notes * Rolly Peters MD - 10/07/2023 2:15 PM EDT Images from the original note were not included. s [facility] Medicine Radiation Oncology Radiation Oncology On-treatment Visit Note Patient ID Patient name: Eduardo Contreras Date of : 1950 Referring: Dr Garcia PCP: Shannan Arellano APRN Chief complaint: Cancer Staging Penile cancer Staging form: Penis, AJCC 8th Edition - Pathologic: Stage IV (pT2, pN3, cM0) - Signed by Rolly Peters MD on 07/22/2023 Eduardo is a 73-year-old man status post R0 wide local excision and lymph node dissection of a stage IV HPV associated penile cancer. He is receiving adjuvant chemoradiation to the pelvis and groins where he had 3 involved LNs (all on the left side). Treatment Details Intent: Curative (Adjuvant) Concurrent Therapy: 5FU/M[facility] (from Dr Obrien) Modality: IMRT Treatment Site 1 Right groin / pelvis Prescribed Dose 45 Gy in 25 fractions Treatment Site 2 Left groin / pelvis (sequential boost) Prescribed Dose 54 Gy in 30 fractions Current Dose: 43.2 Gy in 24 fractions Scientific Affairs Manager Tyson from Current Plan (minimum 45 Gy isodose volume shown): Interval Clinical Course General: Overall feels poorly today GI: Ongoing nausea - compazine not very helpful. Still vomiting. Diarrhea and loose stools. Imodium x 2 tabs has not really helped. Not quite following LRD / low FODMAP diet (had some melon last night, and then diarrhea this AM). : No dysuria or increased frequency. Stable nocturia 3x/nt. More urgency. Skin: Just started using silvadene in skin folds. Pain: Pain score today is 0/10. Performance Status KPS Score ECOG Grade Definition 90-100 0 Fully active, able to carry on all pre-disease performance without restriction XX 70-80 1 Restricted in physically strenuous activity but ambulatory and able to carry out work ofa light or sedentary nature, e.g., light house work, office work 50-60 2 Ambulatory and capable of all selfcare but unable to carry out any work activities; up and about more than 50% of waking hours 30-40 3 Capable of only limited selfcare; confined to bed or chair more than 50% of waking hours 10-20 4 Completely disabled; cannot carry on any selfcare; totally confined to bed or chair Medications Medications 10/07/23 9574 Medication Sig Taking? simethicone (Gas-X Chew) 80 mg chewable tablet Take 80 mg by mouth every 6 hours as needed for Flatulence. Yes guaiFENesin (Robitussin) 20 mg/mL Liquid Take 200 mg by mouth 3 times daily as needed for Cough. Yes Psyllium Seed-Sucrose (0) Powder Take by mouth. Yes silver sulfADIAZINE (Silvadene) 1 % Cream Apply topically daily. Yes loperamide (IMODIUM A-D) 2 mg Tablet Take by mouth 4 times daily as needed for Diarrhea. Maximum 16mg in 24 hours Yes prochlorperazine (Compazine) 10 mg tablet Take 1 tablet by mouth every 6 hours as needed for Nausea. Yes apixaban (Eliquis) 5 mg tablet Take 1 tablet by mouth 2 times daily. Yes acetaminophen (Tylenol) 325 mg tablet Take 650 mg by mouth as needed for Pain. Maybe once a week Yes famotidine (Pepcid) 40 mg tablet Take 40 mg by mouth. Yes fluticasone propionate (Flonase) 50 mcg/actuation [place], Suspension by Each Nare route daily. Yes lidocaine-prilocaine (EMLA) Cream Apply topically as needed. Patient not taking: Reported on 09/08/2023 oxyCODONE (Roxicodone) 5 mg tablet Take 1 tablet by mouth every 4 hours as needed for Pain (for severe pain not controlled by tylenol/ibuprofen). Patient not taking: Reported on 07/26/2023 Exam Vitals: BP 107/69 (Patient Position: Sitting) Pulse 95 Temp 37.2 ??C (99 ??F) (Temporal) Resp 16 Wt72.3 kg (159 lb 6.4 oz) SpO2 97% BMI 24.24 kg/m?? General: Appears well, in no distress Abd: Soft, nt Skin: Moist desquamation left inguinal fold Imaging/Labs Interval setup imaging has been checked and approved. See [facility] for details. Impression/Plan Tolerance to radiotherapy: Tolerating as anticipated. Continue as planned. Diarrhea: Cont Imodum, LRD/Low FODMAP diet Skin: Silvadene / aquaphor BID Followup: RTC for on-treatment assessment next week. No orders of the defined types were placed in this encounter. [facility] [place] ([facility]) [facility] [employer] Commission on Cancer (ACS [place]) Accredited Cancer Program [employer] (ACR) Accredited Radiation Oncology Program documented in this encounter Plan of Treatment Upcoming Encounters Date Type Department Care Team (Late st Contact Info) Description 06/07/2024 1:00 PM EST TH Visit (TeleHealth) [place] [address] [facility] [place] [address] 06/11/2024 9:00 AM EST Office [place] [address] Espinoza, Caroline E, OT 07/10/2024 8:00 AM EST Office [place] [address] Espinoza, Caroline E, OT 07/24/2024 10:00 AM EST Office [place] [address] Espinoza, Caroline E, OT 08/07/2024 10:00 AM EST Office [place] [address] Espinoza, Caroline E, OT 08/21/2024 10:00 AM EST Office [place] [address] Espinoza, Caroline E, OT documented as of this encounter Visit Diagnoses Diagnosis Penile cancer Malignant neoplasm of penis, part unspecified documented in this encounter Care Teams Heat Welder Plastics Relationship Specialty Start Date End Date Shannan Arellano, REGIONAL SALES LEADER [facility] [address] PCP - General Family Medicine 02/03/23 documented as of this encounter
--- OUTSIDE RECORDS SUMMARY | 2024-06-04 17:29 | XMS_ITS | Encounter Summary ---
Author Organization [facility] Address [facility] [place] [address] Care Team Providers Care Fagot Heater Name Role Phone Shannan Arellano APRN Primary Care Provider Encounter Details Date Type Department Care Team (Late st Contact Info) Description 10/11/2023 Orders [address] [facility] [place] [phone] Zachary Garcia MD [facility] [place] [address] Penile cancer (Primary Dx) Social History Tobacco Use [...] a long term (including now)? No 07/28/2023 IPV Inpatient Questions [...] PM EST TH Visit (TeleHealth) [place] [address] Zachary Garcia MD [facility] [place] [address] 06/11/2024 9:00 AM EST Office Visit [place] [address] Caroline Espinoza, OT 07/10/2024 8:00 AM EST Office Visit [place] [address] Caroline Espinoza, OT 07/24/2024 10:00 AM EST Office Visit [place] [address] Caroline Espinoza, OT 08/07/2024 10:00 AM EST Office Visit [place] [address] Caroline Espinoza, OT 08/21/2024 10:00 AM EST Office Visit [place] [address] Caroline Espinoza, OT documented as of this encounter Visit Diagnoses Diagnosis Penile cancer- Primary Malignant neoplasm of penis, part unspecified documented in this encounter Care Teams Fagot Heater Relationship Specialty Start Date End Date Shannan Arellano, DRILL HAND [facility] [place] [address] PCP - General Family Medicine 02/03/23 documented as of this encounter
--- OUTSIDE RECORDS SUMMARY | 2024-06-04 17:29 | XMS_ITS | Encounter Summary ---
Author Organization [facility] Address [facility] georgina [place] [id number] Care Team Providers Care Head Kiln Operator Name Role Phone Shannan Arellano APRN Primary Care Provider [phone] Reason for Visit * Reason Comments IV Medication hydration Encounter Details Date Type Department Care Team (Late st Contact Info) Description 10/11/2023 2:00 PM EDT Infusion Hematology Oncology at [address] [phone] Penile cancer Social History Tobacco Use Types Packs/Day Years Used Date Smoking Tobacco: Never Smokeless Tobacco: Never Alcohol Use Standard Drinks/Week Comments Yes 1 (1 standard drink = 0.6 oz pur e alcohol) [facility] Utilities Answer Date Recorded In the [...] Sign Reading Time Taken Comments Blood Pressure 104/59 10/11/2023 2:10 PM EDT Pulse 61 10/11/2023 2:10 PM EDT Temperature 36 ??C (96.8 ??F) 10/11/2023 2:10 PM EDT Respiratory Rate 16 10/11/2023 2:10 PM EDT Oxygen Saturation 98% 10/11/2023 2:10 PM EDT Inhaled Oxygen Concentration - - Weight - - Height - - Body Mass Index - - documented in this encounter Progress Notes * Catherine No RN - 10/11/2023 2:00 PM EDT INFUSION THERAPY ADMINISTRATION NOTES DIAGNOSIS: Penile REASON FOR VISIT: Hydration SUBJECTIVE Eduardo reports fatigue, he met with Anabelle Cardenas APRN earlier today and had declined hydration at the time, after going home he changed his mind. OBJECTIVE IV ACCESS: PORT REACTIONS (DESCRIPTION, TIME, INTERVENTION AND EFFECTIVENESS) none ASSESSMENT Eduardo was awake, alert and tolerated treatment well. PLAN Return to clinic per routine. documented in this encounter Plan of Treatment Upcoming Encounters Date Type Department Care Team (Late st Contact Info) Description 06/07/2024 1:00 PM EST TH Visit (TeleHealth) [place] [address] Zachary Garcia MD [facility] [place] [address] 06/11/2024 9:00 AM EST Office Visit [place] [address] Espinoza, Caroline E, OT 07/10/2024 8:00 AM EST Office [place] [address] Espinoza, Caroline E, OT 07/24/2024 10:00 AM EST Office [place] [address] Espinoza, Caroline E, OT 08/07/2024 10:00 AM EST Office Visit [place] [address] Espinoza, Caroline E, OT 08/21/2024 10:00 AM EST Office [place] [address] Espinoza, Caroline E, OT documented as of this encounter Visit Diagnoses Diagnosis Penile cancer Malignant neoplasm of penis, part unspecified documented in this encounter Administered Medications Inactive Administered Medications - up to 3 most recent administrations Medication Order MAR Action Action Date Dose Rate Site sodium chloride 0.9% injection 1,000 mL 1,000 mL, Intravenous, ONCE, 1 dose, On Tu10/11/23 at 1315, Routine Given 10/11/2023 2:12 PM EDT 1,000 mLs documented in this encounter Care Teams Head Kiln Operator Relationship Specialty Start Date End Date Shann[place] [address] PCP - General Family Medicine 02/03/23 documented as of this encounter
--- OUTSIDE RECORDS SUMMARY | 2024-06-04 17:29 | XMS_ITS | Encounter Summary ---
Author Organization [facility] [address] [place] [address] Care Team Providers Care Muff Winder Name Role Phone Shannan Arellano APRN Primary Care Provider [phone] Reason for Visit * Reason Onset Date Comments Follow-up 10/12/2023 Encounter Details Date Type Department Care Team (Late st Contact Info) Description 10/12/2023 Telephone Hematology/Oncology at [address] [address] Lionel García RN Follow-up Social History Tobacco Use Types Packs/Day Years Used Date Smoking Tobacco: Never Smokeless Tobacco: Never Alcohol Use Standard Drinks/Week Comments Yes 1 (1 standard drink = 0.6 oz pur e alcohol) [facility] Utilities Answer Date Recorded In [...] encounter Miscellaneous Notes * Telephone Encounter - Lionel García RN - 10/12/2023 8:47 AM EDT Called and spoke with Eduardo Contreras to let him know to continue Eliquis until he sees Dr Garcia for FUV in January 2024. He is in agreement with plan. ----- Message from Lucinda Cardenas APRN sent at 10/11/2023 12:50 PM EDT ----- Please call Eduardo and let him know to continue Eliquis and Dr. Garcia will discuss how long to continue at his next visit. Dr. Garcia office will call him to schedule a visit in 01/2024 with labs prior and PET/CT prior to visit and this has been ordered by Dr. Garcia already. He will continue to follow Eduardo after he completes treatment and we will see him as needed. Thank you! Anabelle ----- Message ----- From: Zachary Garcia MD Sent: 10/11/2023 11:57 AM EDT To: Olivier Obrien MD; Rolly Peters MD; # Eliquis for 3 months.We can make decision about duration at that visit. I am happy to follow him in the care home. [facility] admin Appt with me beginning of 01/2024 with a CMP and PET/CT. Orders placed. AMANDA Esquivel ----- Message ----- From: Rolly Peters MD Sent: 10/11/2023 10:15 AM EDT To: Zachary Garcia MD; Olivier Obrien MD; # Agree w timetable however I think PET would be best to follow him. He has a lot of postop changes that will make CT challenging to assess response If you and Olivier planned to follow Eduardo I do not feel strongly that we need to see him in rad/oncas well Rolly ----- Message ----- From: Lucinda Cardenas APRN Sent: 10/11/2023 10:13 AM EDT To: Zachary Garcia MD; Rolly Peters MD [facility] Dr Garcia and - Eduardo completes adjuvant chemoRT 10/17/23. In reviewing NCCN guidelines recommendations for surveillance look to be: clinical exam and CT CAP q 3 months x 1 year, then [id number] x year 2-4. Dr. Garcia - per your last note it looks as though you will be seeing Eduardo 3-4 months after he completes treatment. Were you planning to continue to follow him for surveillance? 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 Dr. Peters - were you planning surveillance visits after treatment? Just trying to coordinate care for the patient now that he has completed treatment. Thank you! Anabelle Cardenas documented in this encounter Plan of Treatment Upcoming Encounters Date Type Department Care Team (Late st Contact Info) Description 06/07/2024 1:00 PM EST TH Visit (TeleHealth) [place] [address] Zachary Garcia MD [facility] [place] [address] 06/11/2024 9:00 AM EST Office [place] [address] Espinoza, Caroline E, OT 07/10/2024 8:00 AM EST Office [place] [address] Espinoza, Caroline E, OT 07/24/2024 10:00 AM EST Office [place] [address] Espinoza, Caroline E, OT 08/07/2024 10:00 AM EST Office [place] [address] Espinoza, Caroline E, OT 08/21/2024 10:00 AM EST Office [place] [address] Espinoza, Caroline E, OT documented as of this encounter Visit Diagnoses Not on filedocumented in this encounter Care Teams Muff Winder Relationship Specialty Start Date End Date Shannan Arellano, [place] [address] PCP - General Family Medicine 02/03/23 documented as of this encounter
--- OUTSIDE RECORDS SUMMARY | 2024-06-04 17:29 | XMS_ITS | Encounter Summary ---
Author Organization [facility] Address [facility] [place] [address] Care Team Providers Care Engineering Associate Name Role Phone Shannan Arellano APRN Primary Care Provider [phone] Encounter Details Date Type Department Care Team (Latest Contact Info) Description 10/28/2023 Travel Social History Tobacco Use Types Packs/Day Years Used Date Smoking Tobacco: Never Smokeless Tobacco: Never Alcohol Use Standard Drinks/Week Comments Yes 1 (1 standard drink = 0.6 oz pur e alcohol) [facility] Utilities Answer Date Recorded In the past 12 months has th e electric, gas, oil, or water [employer] threatened to shut off services in your [...] PM EST TH Visit (TeleHealth) [place] [address] Zachary Garcia MD [facility] [place] [address] 06/11/2024 9:00 AM EST Office Visit [place] [address] EspinozaTia de la torreyl E, OT 07/10/2024 8:00 AM EST Office Visit [place] [address] Espinoza, Caroline E, OT 07/24/2024 10:00 AM EST Office Visit [place] [address] Espinoza, Caroline E, OT 08/07/2024 10:00 AM EST Office Visit [place] [address] Espinoza, Caroline E, OT 08/21/2024 10:00 AM EST Office Visit [place] [address] Caroline Espinoza, OT documented as of this encounter Visit Diagnoses Not on filedocumented in this encounter Care Teams Engineering Associate Relationship Specialty Start Date End Date Shannan Arellano, [place] [address] PCP - General Family Medicine 02/03/23 documented as of this encounter
--- OUTSIDE RECORDS SUMMARY | 2024-06-04 17:29 | XMS_ITS | Encounter Summary ---
Author Organization [facility] Address [facility] [address] Care Team Providers Care Short Piece Handler Name Role Phone Shannan Arellano APRN Primary Care Provider [phone] Encounter Details Date Type Department Care Team (Latest Contact Info) Description 10/03/2023 Travel Social History Tobacco Use Types Packs/Day Years Used Date Smoking Tobacco: Never Smokeless Tobacco: Never Alcohol Use Standard Drinks/Week Comments Yes 1 (1 standard drink = 0.6 oz pur e alcohol) [facility] Utilities Answer Date Recorded In the past 12 months has th e electric, gas, oil, or water [employer] threatened to shut off services in your [...] in a long-term (including now)? No 07/28/2023 IPV Inpatient Questions [...] PM EST TH Visit (TeleHealth) [place] [address] Zachary Garcia MD [facility] [place] [address] 06/11/2024 9:00 AM EST Office Visit [place] [address] EspinozaTia de la torreyl E, OT 07/10/2024 8:00 AM EST Office Visit [place] [address] Espinoza, Caroline E, OT 07/24/2024 10:00 AM EST Office Visit [place] [address] Espinoza, Caroline E, OT 08/07/2024 10:00 AM EST Office Visit [place] [address] Espinoza, Caroline E, OT 08/21/2024 10:00 AM EST Office Visit [place] [address] Caroline Espinoza, OT documented as of this encounter Visit Diagnoses Not on filedocumented in this encounter Care Teams Short Piece Handler Relationship Specialty Start Date End Date Shannan Arellano, CHEMICAL RESEARCH [place] [address] PCP - General Family Medicine 02/03/23 documented as of this encounter
--- OUTSIDE RECORDS SUMMARY | 2024-06-04 17:29 | XMS_ITS | Encounter Summary ---
Author Organization [facility] Address [facility] [place] [address] Care Team Providers Care Learning Engineer Name Role Phone Shannan Arellano APRN Primary Care Provider [phone] Encounter Details Date Type Department Care Team (Late st Contact Info) Description 09/20/2023 Notes Only Radiation Oncology at [address] [address] Sandy Aranda, RN Social History Tobacco Use Types Packs/Day Years Used Date Smoking Tobacco: Never Smokeless Tobacco: Never Alcohol Use Standard Drinks/Week Comments Yes 1 (1 standard drink = 0.6 oz pur e alcohol) [facility] Utilities Answer Date Recorded In the [...] in a mcc (including now)? No 07/28/2023 DH IPV Inpatient [...] as of this encounter Progress Notes * Sandy Aranda RN - 09/20/2023 3:19 PM EDT Radiation Oncology Nursing on Treatment Note Background: Asked to see patient by Anabelle Cardenas APRN for bowel issues related to xrt. I met with patient and his . Patient has received 1980 cGy to the pelvis/groin for treatment of penile cancer. Side effects that patient is experiencing: Frequent urgent bowel movements. Assessment: He denies currently having any diarrhea. He is having multiple very small pasty BM's throughout the day and describes the urge as very urgent. . Denies any bleeding. Denies any bowel incontinence. Spending more time than he would like in bathroom moving his bowels. Nocturia reported at 3 times/night. Also awoken x1 last night for BM. Not currently taking imodium as no diarrhea. Did take one dose of Metamucil. Anticipatory guidance/ interventions: purchasing good food such as broccoli, cauliflower. They like salads. He is staying hydrated. Instructed on diet recommendations for diarrhea/frequent BM's. Offered RD consult which they were in agreement with. Other: Dr. Peters and Anabelle Cardenas APRN updated via this note. Plan: Relay any new recommendations from Dr. Peters to patient by calling his as requested. RD referral. * Sandy Aranda RN - 09/20/2023 3:19 PM EDT Telephone call to patient's Sylvie. Message left on identifiable voicemail regarding Dr. Peters recommendation to follow LRD, imodium prn. Reminded that I have asked RD to meet with them to discuss diet as well. I also left our clinic contact information should they have any additional questions. documented in this encounter Plan of Treatment Upcoming Encounters Date Type Department Care Team (Late st Contact Info) Description 06/07/2024 1:00 PM EST TH Visit (TeleHealth) [place] [address] Zachary Garcia MD [facility] [address] 06/11/2024 9:00 AM EST Office Visit [place] [address] Espinoza, Caroline E, OT 07/10/2024 8:00 AM EST Office Visit [place] [address] Espinoza Caroline E, OT 07/24/2024 10:00 AM EST Office Visit [place] [address] Espinoza Caroline E, OT 08/07/2024 10:00 AM EST Office Visit [place] [address] Espinoza Caroline E, OT 08/21/2024 10:00 AM EST Office Visit [place] [address] Espinoza Caroline E, OT documented as of this encounter Visit Diagnoses Not on filedocumented in this encounter Care Teams Learning Engineer Relationship Specialty Start Date End Date Shannan Arellano, [place]IRED [place] [address] PCP - General Family Medicine 02/03/23 documented as of this encounter
--- OUTSIDE RECORDS SUMMARY | 2024-06-04 17:29 | XMS_ITS | Encounter Summary ---
Author Organization [facility] Address [facility] [address] Care Team Providers Care Animal Breeder Name Role Phone Shannan Arellano APRN Primary Care Provider [phone] Encounter Details Date Type Department Care Team (Latest Contact Info) Description 10/25/2023 Travel Social History Tobacco Use Types Packs/Day Years Used Date Smoking Tobacco: Never Smokeless Tobacco: Never Alcohol Use Standard Drinks/Week Comments Yes 1 (1 standard drink = 0.6 oz pur e alcohol) [facility] Utilities Answer Date Recorded In the past 12 months has th e electric, gas, oil, or water [employer] threatened to shut off services in your [...] a skilled nursing (including now)? No 07/28/2023 IPV Inpatient Questions [...] PM EST TH Visit (TeleHealth) [place] [address] Zachary Garcia MD [facility] [place] [address] 06/11/2024 9:00 AM EST Office Visit [place] [address] EspinozaTia de la torreyl E, OT 07/10/2024 8:00 AM EST Office Visit [place] [address] Espinoza, Caroline E, OT 07/24/2024 10:00 AM EST Office Visit [place] [address] Espinoza, Caroline E, OT 08/07/2024 10:00 AM EST Office Visit [place] [address] Espinoza, Caroline E, OT 08/21/2024 10:00 AM EST Office Visit [place] [address] Caroline Espinoza, OT documented as of this encounter Visit Diagnoses Not on filedocumented in this encounter Care Teams Animal Breeder Relationship Specialty Start Date End Date Shannan Arellano, [place] [address] PCP - General Family Medicine 02/03/23 documented as of this encounter
--- OUTSIDE RECORDS SUMMARY | 2024-06-04 17:29 | XMS_ITS | Encounter Summary ---
Author Organization [facility] [place] [address] Care Team Providers Care Oxyacetylene Burner Name Role Phone Shannan Arellano APRN Primary Care Provider [phone] Encounter Details Date Type Department Care Team (Late st Contact Info) Description 09/15/2023 4:15 PM EDT Office Visit Radiation Oncology at [address] [phone] Rolly Peters MD [address] [place] [address] [place] [address] Penile cancer Social History Tobacco Use Types Packs/Day Years Used Date Smoking Tobacco: Never Smokeless Tobacco: Never Alcohol Use Standard Drinks/Week Comments Yes 1 (1 standard drink = 0.6 oz pur e alcohol) [facility] Utilities Answer Date Recorded In the [...] Sign Reading Time Taken Comments Blood Pressure 129/76 09/15/2023 4:09 PM EDT Pulse 73 09/15/2023 4:09 PM EDT Temperature 37 ??C (98.6 ??F) 09/15/2023 4:09 PM EDT Respiratory Rate 18 09/15/2023 4:09 PM EDT Oxygen Saturation 95% 09/15/2023 4:09 PM EDT Inhaled Oxygen Concentration - - Weight 75.9 kg (167 lb 6.4 oz) 09/15/2023 4:09 P M EDT Height - - Body Mass Index 25.46 09/13/2023 2:41 PM EDT documented in this encounter Progress Notes * Rolly Peters MD - 09/15/2023 4:15 PM EDT Images from the original note were not included. [facility] Medicine Radiation Oncology Radiation Oncology On-treatment [...] 54 Gy in 30 fractions Current Dose: 14.4 Gy in 8 fractions Strategic Marketing Specialist Tyson from Current Plan (minimum 45 Gy isodose volume shown): Interval Clinical Course General: No changes since last seen. GI: Some nausea w chemotherapy - compazine helps Diarrhea earlier this week - Imodium helped : No dysuria or increased frequency Skin: No erythema or drainage. Pain: Pain score today is 0/10. Performance [...] confined to bed or chair Medications Medications 09/15/23 1616 Medication Sig Taking? loperamide (IMODIUM A-D) 2 mg Tablet Take [...] mouth. Yes fluticasone propionate (Flonase) 50 mcg/actuation [place], Suspension by Each Nare route daily. Yes lidocaine-prilocaine (EMLA) Cream Apply topically as needed. Patient not taking: Reported on 09/08/2023 oxyCODONE (Roxicodone) 5 mg tablet Take 1 tablet by mouth every 4 hours as needed for Pain (for severe pain not controlled by tylenol/ibuprofen). Patient not taking: Reported on 07/26/2023 Exam Vitals: BP 129/76 (Patient Position: Sitting) Pulse 73 Temp 37 ??C (98.6 ??F) (Temporal) Resp 18 Wt75.9 kg (167 lb 6.4 oz) SpO2 95% BMI 25.46 kg/m?? General: Appears well, in no distress Imaging/Labs Interval setup imaging has been checked and approved. See [employer] for details. Impression/Plan Tolerance to radiotherapy: Tolerating as anticipated. Continue as planned. Followup: RTC for on-treatment assessment next week. No orders of the defined types were placed in this encounter. [facility] [place] (NCI) [facility] [employer] Commission on Cancer (ACS [place]) Accredited Cancer Program [employer] (ACR) Accredited Radiation Oncology Program documented in this encounter Plan of Treatment Upcoming Encounters Date Type Department Care Team (Late st Contact Info) Description 06/07/2024 1:00 PM EST TH Visit (TeleHealth) [place] [address] Zachary Garcia MD [facility] [place] [address] 06/11/2024 9:00 AM EST Office [place] [address] Caroline Espinoza OT 07/10/2024 8:00 AM EST Office [place] [address] Espinoza Caroline E, OT 07/24/2024 10:00 AM EST Office [place] [address] Espinoza, Caroline E, OT 08/07/2024 10:00 AM EST Office [place] [address] Espinoza, Caroline E, OT 08/21/2024 10:00 AM EST Office [place] [address] Espinoza, Caroline E, OT documented as of this encounter Visit Diagnoses Diagnosis Penile cancer Malignant neoplasm of penis, part unspecified documented in this encounter Care Teams Oxyacetylene Burner Relationship Specialty Start Date End Date Shannan Arellano, GENERAL MAINTENANCE [place] [address] PCP - General Family Medicine 02/03/23 documented as of this encounter
--- OUTSIDE RECORDS SUMMARY | 2024-06-04 17:29 | XMS_ITS | Encounter Summary ---
Author Organization [facility] Address [facility] [address] Care Team Providers Care Manager Of International Name Role Phone Shannan Arellano APRN Primary Care Provider [phone] Encounter Details Date Type Department Care Team (Latest Contact Info) Description 10/17/2023 Travel Social History Tobacco Use Types Packs/Day Years Used Date Smoking Tobacco: Never Smokeless Tobacco: Never Alcohol Use Standard Drinks/Week Comments Yes 1 (1 standard drink = 0.6 oz pur e alcohol) [facility] Utilities Answer Date Recorded In the past 12 months has th e electric, gas, oil, or water [employer] threatened to shut off services in your [...] a senior living (including now)? No 07/28/2023 IPV Inpatient Questions [...] PM EST TH Visit (TeleHealth) [place] [address] Zachary Garcia MD [facility] [place] [address] 06/11/2024 9:00 AM EST Office [place] [address] EspinozaTia de la torreyl E, OT 07/10/2024 8:00 AM EST Office [place] [address] Espinoza, Caroline E, OT 07/24/2024 10:00 AM EST Office [place] [address] Espinoza, Caroline E, OT 08/07/2024 10:00 AM EST Office [place] [address] Espinoza, Caroline E, OT 08/21/2024 10:00 AM EST Office [place] [address] Caroline Espinoza, OT documented as of this encounter Visit Diagnoses Not on filedocumented in this encounter Care Teams Manager Of International Relationship Specialty Start Date End Date Shannan Arellano, GUN [place] [address] PCP - General Family Medicine 02/03/23 documented as of this encounter
--- OUTSIDE RECORDS SUMMARY | 2024-06-04 17:29 | XMS_ITS | Encounter Summary ---
Author Organization [facility] Address [facility] [address] Care Team Providers Care Professor Sculpture Name Role Phone Shannan Arellano GAYLE Primary Care Provider [phone] Reason for Visit * Physical Therapy (Routine) - Authorized Specialty Diagnoses / Procedures Referred By Marry kelsey Referred To Contact Physical Therapy Diagnoses Penile cancer Zachary Garcia MD [facility] [place] [address] [facility] [place] [address] Referral ID Status Reason Start Date Expiration Date Visits Requested Visits Authorized [id number] Authorized Evaluate and Treat 05/17/2023 06/15/2024 100 100 Encounter Details Date Type Department Care Team (Late st Contact Info) Description 10/25/2023 9:00 AM EDT Office Visit [place] [address] Caroline Espinoza, OT Lymphedema; Scar; 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 Social History Tobacco Use Types Packs/Day Years Used Date Smoking Tobacco: Never Smokeless Tobacco: Never Alcohol Use Standard Drinks/Week Comments Yes 1 (1 standard drink = 0.6 oz pur e alcohol) [facility] Utilities Answer Date Recorded In the past 12 months has [employer] electric, gas, oil, or water company threatened [...] - Therapy - Caroline Espinoza OT - 10/25/2023 9:00 AM EDTSummary: OT/CLT LE LYMPHEDEMA TREATMENT NOTE OT/CLT LE LYMPHEDEMA TREATMENT NOTE Date of Exam/First treatment: 05/31/23 Date of Onset 03/18/23 Referring Provider: Zachary Garcia MD Diagnosis and pertinent co-morbidities: Penile CA Primary Insurance: Payor: MEDICARE / Plan: MEDICARE PART A & B / Product Type: *No Product type* / Medicare Cert Period: 05/31/23- 08/29/23 08/29/33-11/28/23 Penile CA CURRENT HISTORY: Eduardo Contreras is [...] for inguinal dissection and penile tumor resection. P Patient has completed adjuvant chemo and completed radiation with past two weeks. 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 Lymphedema and scarring PRECAUTIONS: activity as tolerated SOCIAL SUPPORTS: Patient lives with spouse, 6 children 30 years. Does not smoke. And drinksrarely ENVIRONMENT: I at home with out DME PATIENT STATED GOAL: I want to get back to work and doing what I like to do. CURRENT ACTIVITY LEVEL: Active lifestyle and work. 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 PAIN: Occasional [...] UE and LE 2) STRENGTH:WNL 3) SKIN/PALPATION: NO H/O CELLULITIS No Fibrotic changes. Hyperpigmentation for radiation. NO hyperplasia, hyperkeratosis, or papillomas noted No belly fluid noted. Incisions healing well. Radiated area warm and fibrotic tissue changes noted. Red and warm particularly Left inguinal area.Reviewed S/S of cellulitis. Patient and spouse keeping an eye on. Verbalize understanding to contact PCP or ED if increase in redness/swelling/heat 5) LE circumferences (cm) Right 05/31/23 Left 05/31/23 RIGHT 07/07/23 LEFT 07/07/23 RIGHT 08/16/23 Left 08/16/23 Right 09/13/23 Left 09/13/23 RIGHT 10/25/23 LEFT 5/7/24 Mid foot 22.8 23.2 23.3 23.1 22.5 23.6 22.3 23.5 22.3 23.5 Ankle 25.4 24 22.8 22.6 24 24.1 23 24.5 25.2 24.4 Calf 33 35.3 35 35.3 31.7 34.8 34.7 35.8 35.5 35.3 D 32.3 31.8 32.5 32 33.5 33 33 32.8 32.5 33 Knee 35.7 35.5 35.7 36.2 36.8 37.2 36.4 37.5 35.9 36.7 Knee +12 45.3 46.8 41.5 45.6 46.7 47 45.2 46 45.9 47.9 Upper thigh G 55 53.4 52.3 57 51.2 52 51.5 51.8 A-D Length 38 A-G Length 75 32 waist JUZO 20-30 MMhG compression short size II knee high Compression bike short. Wearing during the day. Patient given information for [employer] Orly for daily compression .These may be more comfortable for him. Patient has not has any swelling below the knee Patient is also using Jobst relax tights 15-20 mmHg footless. He finds these comfortable. Recs for scrotal swell pad. Patient has [...] fluid management 08/16/23 working on improving compliance 2. Patient will be I with donning/doffing [...] Rolling. Muscle pump HEP. Elevation 08/16/23 ongoing. Therapy Residential Goals 12 weeks 1. Patient will demonstrate ability to maintain reduction in swelling utilizing all techniques taught. THERAPEUTIC INTERVENTIONS UTILIZED TODAY: Review education and training for MLD sequence including deep diaphragmatic breathing and deep abdominal lymph node drainage. Full MLD sequence. Edema responds well with increase in comfort reported by patient. Reviewed need for scrotal swell pack. Reviewed importance of wearing regularly Given channel foam pieces to place in compression shorts to assist in scrotal compression. Encouraged letting area open to air for next week to allow for healing post radiation. Reviewed s/s of cellulitis. Verbalizes understanding. Will order thigh high compression stocking for patient to [...] from 20-30 compression. Reviewed with patient today. Will order thigh high compression to be worn with compression shorts. Adjunct fluid management techniques Charges Minutes OT EVAL LOW (20023) OT EVAL MOD (40599) OT EVAL HIGH (89356) MANUAL THERAPY(88578) 45 SELF CARE/HOME MANAGEMENT (74020) 15 THERAPEUTIC/FUNCTIONAL ACTIVITIES(37846) THEREX NEUROMUSCULAR BINA(98956) THEREX: STRENGTH ROM (27578) Caroline Espinoza OT/CLT documented in this encounter Plan of Treatment Upcoming Encounters Date Type Department Care Team (Late st Contact Info) Description 06/07/2024 1:00 PM EST TH Visit (TeleHealth) [place] [address] Zachary Garcia MD [facility] [place] [address] 06/11/2024 9:00 AM EST Office Visit [place] [address] Caroline Espinoza, OT 07/10/2024 8:00 AM EST Office Visit [place] [address] Caroline Espinoza, OT 07/24/2024 10:00 AM EST Office Visit [place] [address] Caroline Espinoza, OT 08/07/2024 10:00 AM EST Office Visit [place] [address] Caroline Espinoza, OT 08/21/2024 10:00 AM EST Office Visit [place] [address] Caroline Espinoza, OT documented as of this encounter Visit Diagnoses Diagnosis Lymphedema Other lymphedema Scar Scar condition and fibrosis of skin 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
--- OUTSIDE RECORDS SUMMARY | 2024-06-04 17:29 | XMS_ITS | Encounter Summary ---
Author Organization [facility] Address [facility] [address] Care Team Providers Care Orthopedic Physician Name Role Phone Shannan Arellano APRN Primary Care Provider [phone] Encounter Details Date Type Department Care Team (Latest Contact Info) Description 09/19/2023 Travel Social History Tobacco Use Types Packs/Day Years Used Date Smoking Tobacco: Never Smokeless Tobacco: Never Alcohol Use Standard Drinks/Week Comments Yes 1 (1 standard drink = 0.6 oz pur e alcohol) [facility] Utilities Answer Date Recorded In the past 12 months has th e electric, gas, oil, or water [employer] threatened to shut off services in your [...] PM EST TH Visit (TeleHealth) [place] [address] Zachary Garcia MD [facility] [place] [address] 06/11/2024 9:00 AM EST Office [place] [address] EspinozaTia de la torreyl E, OT 07/10/2024 8:00 AM EST Office [place] [address] Espinoza, Caroline E, OT 07/24/2024 10:00 AM EST Office [place] [address] Espinoza, Caroline E, OT 08/07/2024 10:00 AM EST Office [place] [address] Espinoza, Caroline E, OT 08/21/2024 10:00 AM EST Office [place] [address] Caroline Espinoza, OT documented as of this encounter Visit Diagnoses Not on filedocumented in this encounter Care Teams Orthopedic Physician Relationship Specialty Start Date End Date Shannan Arellano, GUINE[place] [address] PCP - General Family Medicine 02/03/23 documented as of this encounter
--- OUTSIDE RECORDS SUMMARY | 2024-06-04 17:29 | XMS_ITS | Encounter Summary ---
Author Organization [facility] Address [facility] [place] [id number] Care Team Providers Care Tailor Apprentice Name Role Phone Shannan Arellano GAYLE Primary Care Provider [phone] Encounter Details Date Type Department Care Team (Late st Contact Info) Description 09/16/2023 Telephone Hematology/Oncology at [address] [address] Chasidy Cali Social History Tobacco Use Types Packs/Day Years Used Date Smoking Tobacco: Never Smokeless Tobacco: Never Alcohol Use Standard Drinks/Week Comments Yes 1 (1 standard drink = 0.6 oz pur e alcohol) [facility] Utilities Answer Date Recorded In [...] place to sleep or slept in a prison (including now)? No 07/28/2023 IPV Inpatient Questions [...] Miscellaneous Notes * Telephone Encounter - Chasidy aCli - 09/16/2023 11:07 AM EDT Called and left a message on Kate's phone about his up coming appt on 09/20/23 needing labs prior documented in this encounter Plan of Treatment Upcoming Encounters Date Type Department Care Team (Late st Contact Info) Description 06/07/2024 1:00 PM EST TH Visit (TeleHealth) [place] [address] Zachary Garcia MD [facility] [place] [address] 06/11/2024 9:00 AM EST Office Visit [place] [address] Caroline Espinoza OT 07/10/2024 8:00 AM EST Office Visit [place] [address] Caroline Espinoza OT 07/24/2024 10:00 AM EST Office Visit [place] [address] EspinozaTia santiagoyl E, OT 08/07/2024 10:00 AM EST Office Visit [place] [address] EspinozaTiayl E, OT 08/21/2024 10:00 AM EST Office Visit [place] [address] EspinozaTiayl E, OT documented as of this encounter Visit Diagnoses Not on filedocumented in this encounter Care Teams Tailor Apprentice Relationship Specialty Start Date End Date Shannan Arellano, RUBBER TURNER [place] [address] PCP - General Family Medicine 02/03/23 documented as of this encounter
--- OUTSIDE RECORDS SUMMARY | 2024-06-04 17:29 | XMS_ITS | Encounter Summary ---
Author Organization [facility] Address [facility] [address] Care Team Providers Care Annealer Name Role Phone Shannan Arellano APRN Primary Care Provider Encounter Details Date Type Department Care Team (Latest Contact Info) Description 10/07/2023 Travel Social History Tobacco Use Types Packs/Day Years Used Date Smoking Tobacco: Never Smokeless Tobacco: Never Alcohol Use Standard Drinks/Week Comments Yes 1 (1 standard drink = 0.6 oz pur e alcohol) [facility] Utilities Answer Date Recorded In the past 12 months has th e electric, gas, oil, or water [employer] threatened to shut off services in your [...] PM EST TH Visit (TeleHealth) [place] [address] Zachary Garcia MD [facility] [place] [address] 06/11/2024 9:00 AM EST Office [place] [address] EspinozaTia de la torreyl E, OT 07/10/2024 8:00 AM EST Office [place] [address] Espinoza, Caroline E, OT 07/24/2024 10:00 AM EST Office [place] [address] Espinoza, Caroline E, OT 08/07/2024 10:00 AM EST Office [place] [address] Espinoza, Caroline E, OT 08/21/2024 10:00 AM EST Office [place] [address] Caroline Espinoza, OT documented as of this encounter Visit Diagnoses Not on filedocumented in this encounter Care Teams Annealer Relationship Specialty Start Date End Date Shannan Arellano, APPLICATION PROGRAMMER [place] [address] PCP - General Family Medicine 02/03/23 documented as of this encounter
--- OUTSIDE RECORDS SUMMARY | 2024-06-04 17:29 | XMS_ITS | Encounter Summary ---
Author Organization [facility] Address [facility] [address] Care Team Providers Care Diet Technician Registered Name Role Phone Shannan Arellano APRN Primary Care Provider [phone] Encounter Details Date Type Department Care Team (Latest Contact Info) Description 09/16/2023 Travel Social History Tobacco Use Types Packs/Day Years Used Date Smoking Tobacco: Never Smokeless Tobacco: Never Alcohol Use Standard Drinks/Week Comments Yes 1 (1 standard drink = 0.6 oz pur e alcohol) [facility] Utilities Answer Date Recorded In the past 12 months has th e electric, gas, oil, or water [employer] threatened to shut off services in your [...] PM EST TH Visit (TeleHealth) [place] [address] Zachary Garcia MD [facility] [place] [address] 06/11/2024 9:00 AM EST Office Visit [place] [address] EspinozaTia de la torreyl E, OT 07/10/2024 8:00 AM EST Office Visit [place] [address] Espinoza, Caroline E, OT 07/24/2024 10:00 AM EST Office Visit [place] [address] Espinoza, Caroline E, OT 08/07/2024 10:00 AM EST Office Visit [place] [address] Espinoza, Caroline E, OT 08/21/2024 10:00 AM EST Office Visit [place] [address] Caroline Espinoza, OT documented as of this encounter Visit Diagnoses Not on filedocumented in this encounter Care Teams Diet Technician Registered Relationship Specialty Start Date End Date Shannan Arellano, SALES DEVELOPMENT [place] [address] PCP - General Family Medicine 02/03/23 documented as of this encounter
--- OUTSIDE RECORDS SUMMARY | 2024-06-04 17:29 | XMS_ITS | Encounter Summary ---
[facility] Address [facility] [place] [address] Care Team Providers Care Moisture Meter Operator Name Role Phone Shannan Arellano APRN Primary Care Provider [phone] Reason for Visit * Reason Onset Date Comments Medication Refill 10/13/2023 Encounter Details Date Type Department Care Team (Late st Contact Info) Description 10/13/2023 Refill Urology at [facility] [place] [address] Zachary Garcia MD [facility] [place] [address] Social History Tobacco Use Types Packs/Day Years [...] Progress Notes * Zo Arboleda RN - 10/13/2023 8:54 AM EDT Refill request for Eliquis. Per office visit note from Dr. Garcia on 08/11/23: Plan: Complete Levaquin Continue Eliquis 3 months Await PET. OK to proceed with chemo XRT in 1-2 weeks if groins stable. I will see in 3-4 months after he has completed his chemo XRT. documented in this encounter Miscellaneous Notes * Telephone Encounter - Alyce Coleman - 10/13/2023 8:06 AM EDT NAME OF MEDICATION AND DOSE: apixaban (Eliquis) 5 mg tablet Take 1 tablet by mouth 2 times daily., Historical Med - dose and frequency as stated in medication list. PHARMACY NAME:[facility] P: [phone] PHARMACY PHONE: [phone] Would patient like script sent directly to pharmacy? (Yes or no) yes Would patient like to picker tender paper script here at our office (Please [...] PM EST TH Visit (TeleHealth) [place] [address] Zachary Garcia MD [facility] [place] [address] 06/11/2024 9:00 AM EST Office [place] [address] Espinoza, Caroline E, OT 07/10/2024 8:00 AM EST Office [place] [address] Espinoza Caroline E, OT 07/24/2024 10:00 AM EST Office [place] [address] Espinoza, Caroline E, OT 08/07/2024 10:00 AM EST Office [place] [address] Espinoza Caroline E, OT 08/21/2024 10:00 AM EST Office [place] [address] Espinoza Caroline E, OT documented as of this encounter Visit Diagnoses Not on filedocumented in this encounter Care Teams Moisture Meter Operator Relationship Specialty Start Date End Date Shannan Arellano, MEDICAL DEVICE Guerrero [facility] [place] [address] PCP - General Family Medicine 02/03/23 documented as of this encounter
--- OUTSIDE RECORDS SUMMARY | 2024-06-04 17:29 | XMS_ITS | Encounter Summary ---
Author Organization [facility] Address [facility] [place] [address] Care Team Providers Care Cloth Beamer Name Role Phone Shannan Arellano APRN Primary Care Provider [phone] Encounter Details Date Type Department Care Team (Late st Contact Info) Description 10/26/2023 Orders Only Urology at [facility] [place] [phone] Zachary Garcia MD [facility] [place] [address] Lymphedema of both lower extremities (Primary Dx) Social History Tobacco Use Types Packs/Day Years Used Date Smoking Tobacco: Never Smokeless Tobacco: Never Alcohol Use Standard Drinks/Week Comments Yes 1 (1 standard drink = 0.6 oz pur e alcohol) [facility] Utilities Answer Date Recorded In the past [...] PM EST TH Visit (TeleHealth) [place] [address] Zachary Garcia MD [facility] [place] [address] 06/11/2024 9:00 AM EST Office Visit [place] [address] Caroline Espinoza, OT 07/10/2024 8:00 AM EST Office [place] [address] Caroline Espinoza, OT 07/24/2024 10:00 AM EST Office [place] [address] Caroline Espinoza, OT 08/07/2024 10:00 AM EST Office [place] [address] Caroline Espinoza OT 08/21/2024 10:00 AM EST Office [place] [address] Caroline Espinoza OT documented as of this encounter Visit Diagnoses Diagnosis Lymphedema of both lower extremities- Primary documented in this encounter Care Teams Cloth Beamer Relationship Specialty Start Date End Date Shannan Arellano, [place] [address] PCP - General Family Medicine 02/03/23 documented as of this encounter
--- OUTSIDE RECORDS SUMMARY | 2024-06-04 17:29 | XMS_ITS | Encounter Summary ---
Author Organization [facility] [place] [id number] Care Team Providers Care Mushroom Farmer Name Role Phone Shannan Arellano APRN Primary Care Provider [phone] Reason for Visit * Reason Comments Chemotherapy 5FU pump Encounter Details Date Type Department Care Team (Late st Contact Info) Description 09/27/2023 2:30 PM EDT Infusion Hematology Oncology at [address] [phone] Penile cancer Social History Tobacco Use Types [...] Sign Reading Time Taken Comments Blood Pressure 115/65 09/27/2023 2:45 PM EDT Pulse 72 09/27/2023 2:45 PM EDT Temperature 36.7 ??C (98 ??F) 09/27/2023 2:45 PM EDT Respiratory Rate 18 09/27/2023 2:45 PM EDT Oxygen Saturation 96% 09/27/2023 2:45 PM EDT Inhaled Oxygen Concentration - - Weight 73.8 kg (162 lb 9.6 oz) 09/27/2023 2:45 P M EDT Height 172.7 cm (5' 7.99) 09/27/2023 2:45 PM ED T Body Mass Index 24.73 09/27/2023 2:45 PM EDT documented in this encounter Progress Notes * Catherine No RN - 09/27/2023 2:30 PM EDT INFUSION THERAPY ADMINISTRATION NOTES DIAGNOSIS: Penile CYCLE #: [id number] REASON FOR VISIT: initiation of 5FU continuous home infusion via CADD pump. SUBJECTIVE Eduardo offers no complaints. OBJECTIVE LAB DATA: completed 09/26 at [facility], reviewed with Anabelle Cardenas APRN Pre administration: Chemotherapy orders independently verified for drug name, route, and dosage per patient's height, weight and BSA by Catherine No, KIRA and staff pharmacists REACTIONS (DESCRIPTION, TIME, INTERVENTION AND EFFECTIVENESS) none ASSESSMENT Eduardo was awake, alert and he tolerated treatment well. PLAN Disconnect at [facility] on 10/01 at 4:30pm. documented in this encounter Plan of Treatment Upcoming Encounters Date Type Department Care Team (Late st Contact Info) Description 06/07/2024 1:00 PM EST TH Visit (TeleHealth) [place] [address] Zachary Garcia MD [facility] [place] [address] 06/11/2024 9:00 AM EST Office [place] [address] Espinoza Caroline E, OT 07/10/2024 8:00 AM EST Office [place] [address] Esipnoza, Caroline E, OT 07/24/2024 10:00 AM EST Office [place] [address] Espinoza, Caroline E, OT 08/07/2024 10:00 AM EST Office [place] [address] Espinoza, Caroline E, OT 08/21/2024 10:00 AM EST Office [place] [address] Espinoza, Caroline E, OT documented as of this encounter Visit Diagnoses Diagnosis Penile cancer Malignant neoplasm of penis, part unspecified documented in this encounter Administered Medications Inactive Administered Medications - up to 3 most recent administrations Medication Order MAR Action Action Date Dose Rate Site fluorouraciL (AdruciL) in sodium chloride 0.9% 360 mL infusion (5 Day - For Home Use) 4,775 mg 4,775 mg (2,500 mg/m2/dose ? 1.91 m2 Treatment Plan BSA from Recorded weight), Intravenous, ONCE, 1 dose, On Tue09/27/23 at 1645, Administer over 120 Hours, Warning Vesicant/Irritant Medication To be infused via an ambulatory infusion CADD Roland pump continuously IV at 3 mL/hr for 120 hours (5 days). Pump contains a 5 day supply and provides a daily dose of 500 mg/m2/day = 2,500 mg/m2 IV over 5 days. Given 09/27/2023 4:05 PM EDT 4,775 mg 3 m L/hr documented in this encounter Care Teams Mushroom Farmer Relationship Specialty Start Date End Date Shannan Arellano, VOCATIONAL AIDE [address] [place] [address] PCP - General Family Medicine 02/03/23 documented as of this encounter
--- OUTSIDE RECORDS SUMMARY | 2024-06-04 17:29 | XMS_ITS | Encounter Summary ---
Author Organization [facility] Address [facility] [address] Care Team Providers Care Medical Technologist Clinical Name Role Phone Shannan Arellano GAYLE Primary Care Provider [phone] Reason for Visit * Physical Therapy (Routine) - Authorized Specialty Diagnoses / Procedures Referred By Marry kelsey Referred To Contact Physical Therapy Diagnoses Penile cancer Zachary Garcia MD [facility] [place] [address] [facility] [place] [address] Referral ID Status Reason Start Date Expiration Date Visits Requested Visits Authorized [id number] Authorized Evaluate and Treat 05/17/2023 06/15/2024 100 100 Encounter Details Date Type Department Care Team (Late st Contact Info) Description 10/06/2023 10:00 AM EDT Office Visit [place] [address] Espinoza, Caroline E, OT Edema, unspecified type; Scar; Lymphedema Social History Tobacco Use Types Packs/Day Years Used Date Smoking Tobacco: Never Smokeless Tobacco: Never Alcohol Use Standard Drinks/Week Comments Yes 1 (1 standard drink = 0.6 oz pur e alcohol) [facility] Utilities Answer Date Recorded In the past 12 months has [employer], gas, oil, or water [employer] threatened to shut off services in your [...] - Therapy - Caroline Espinoza OT - 10/06/2023 10:00 AM EDTSummary: OT/CLT LE LYMPHEDEMA TREATMENT NOTE [...] MRI show suspicious LEFT inguinal lymph nodes. Awaiting pathology report Pending discussion at tumor board Cystoscopy and biopsy on 05/09/23 Surgery on 06/24/22 for inguinal dissection and penile tumor resection. Patient continues on prophylactic ABX Patient has completed adjuvant chemo and continues with radiation. 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 Lymphedema and scarring PRECAUTIONS: activity as tolerated SOCIAL SUPPORTS: Patient lives with spouse, 6 children 30 years. Does not smoke. And drinksrarely ENVIRONMENT: I at home with out DME PATIENT STATED GOAL: I want to get back to work and doing what I like to do. CURRENT ACTIVITY LEVEL: Active lifestyle and work. 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 PAIN: Occasional knee and back pain from OA reported. No c.o pain. He has been having some belly bloatingand fullness. FUNCTIONAL LIMITATIONS: On a difficulty scale with 0 being unable to perform an activity, and 10 being able to perform at a pre injury/occurance level 10/10 HAND DOMINANCE: Patient is R hand dominant. CLINICAL FINDINGS: 1) GENERAL OBSERVATION Thin healthy male. Good postural and neck control and AROM noted. Both UE and LE 2) STRENGTH:WNL 3) SKIN/PALPATION: NO H/O CELLULITIS No Fibrotic changes. No hyperpigmentation, hyperplasia, hyperkeratosis, or papillomas noted No belly fluid noted. Incision healing well. 5) LE circumferences (cm) Right 05/31/23 Left 05/31/23 RIGHT 07/07/23 LEFT 07/07/23 RIGHT 08/16/23 Left 08/16/23 Right 09/13/23 Left 09/13/23 Mid foot 22.8 23.2 23.3 23.1 22.5 23.6 22.3 23.5 Ankle 25.4 24 22.8 22.6 24 24.1 23 24.5 Calf 33 35.3 35 35.3 31.7 34.8 34.7 35.8 D 32.3 31.8 32.5 32 33.5 33 33 32.8 Knee 35.7 35.5 35.7 36.2 36.8 37.2 36.4 37.5 Knee +12 45.3 46.8 41.5 45.6 46.7 47 45.2 46 Upper thigh G 55 53.4 52.3 57 [...] scrotal swelling. Patient and spouse verbalizes understanding. RECOMMENDED to patient to wear stretchy more breathable athletic pants. He over wears damon jeans which are less breathable and heavy rubbing on incisions. Spouse and patient verbalize understanding. 7) Occasional urinary dribbling. Utilizing pads a [...] Muscle pump HEP. Elevation 08/16/23 ongoing. Therapy Server Assistant Goals 12 weeks 1. Patient will demonstrate ability to maintain reduction in swelling utilizing all techniques taught. THERAPEUTIC INTERVENTIONS UTILIZED TODAY: Review education and training for MLD sequence including deep diaphragmatic breathing and deep abdominal lymph node drainage. Full MLD sequence. Edema responds well with increase in comfort reported by patient. Reviewed need for scrotal swell pack. Reviewed importance of wearing regularly, Negative pressure work over inguinal scarring for scar work and fluid management with good results. PLAN: OT/CLT SERVICES 2x/ month x 2 months. Adding or tapering visits as needed. Treatment: manual lymphatic drainage compression bandaging if indicated Exercise- muscle pump HEP teaching self care garment fitting- Bioflex Orly and Jobst compression shorts. Patient alternates. Patient has i scrotal swell packs to minimize scrotal edema. Patient is also doing well with Jobst relax 15-20 mmHg tights. May benefit from 20-30 compression. Reviewed with patient today. Adjunct fluid management techniques Charges Minutes OT EVAL LOW (05201) OT EVAL MOD (74165) OT EVAL HIGH (39447) MANUAL THERAPY(51512) 45 SELF CARE/HOME MANAGEMENT (43635) 15 THERAPEUTIC/FUNCTIONAL ACTIVITIES(79961) THEREX NEUROMUSCULAR BINA(49519) THEREX: STRENGTH ROM (52758) Caroline Espinoza OT/CLT documented in this encounter Plan of Treatment Upcoming Encounters Date Type Department Care Team (Late st Contact Info) Description 06/07/2024 1:00 PM EST TH Visit (TeleHealth) [place] [address] Zachary Garcia MD [facility] [place] [address] 06/11/2024 9:00 AM EST Office Visit [place] [address] Espinoza, Caroline E, OT 07/10/2024 8:00 AM EST Office Visit [place] [address] Espinoza, Caroline E, OT 07/24/2024 10:00 AM EST Office Visit [place] [address] Espinoza, Caroline E, OT 08/07/2024 10:00 AM EST Office Visit [place] [address] Espinoza, Caroline E, OT 08/21/2024 10:00 AM EST Office Visit [place] [address] Espinoza, Caroline E, OT documented as of this encounter Visit Diagnoses Diagnosis Edema, unspecified type Scar Scar condition and fibrosis of skin Lymphedema Other lymphedema documented in this encounter Care Teams Medical Technologist Clinical Relationship Specialty Start Date End Date Shannan Arellano, SERVER [place]IST[place] [address] PCP - General Family Medicine 02/03/23 documented as of this encounter
--- OUTSIDE RECORDS SUMMARY | 2024-06-04 17:29 | XMS_ITS | Encounter Summary ---
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 Social History Tobacco Use Types Packs/Day Years Used Date Smoking Tobacco: Never Smokeless Tobacco: Never Alcohol Use Standard Drinks/Week Comments Yes 1 (1 standard drink = 0.6 oz pur e alcohol) [facility] Utilities Answer Date Recorded In [...] Sign Reading Time Taken Comments Blood Pressure 103/61 10/28/2023 9:06 AM EDT Pulse 66 10/28/2023 9:06 AM EDT Temperature 36.9 ??C (98.4 ??F) 10/28/2023 9:06 AM ED T Respiratory Rate 16 10/28/2023 9:06 AM EDT Oxygen Saturation 97% 10/28/2023 9:06 AM EDT Inhaled Oxygen Concentration - - Weight 71.6 kg (157 lb 12.8 oz) 10/28/2023 9:06 AM EDT Height - - Body Mass Index 24 10/11/2023 9:04 AM EDT documented in this encounter Progress Notes * Rodney Bella MD - 10/28/2023 9:00 AM EDT Images from the original note were not included. [facility] Medicine Radiation Oncology Radiation Therapy Follow-Up Note Patient ID Patient name: Eduardo Contreras [...] Prescribed Dose 54 Gy in 30 fractions Start Date End Date Elapsed Days 09/06/23 10/17/23 40d Welder Tack Tyson from Current Plan (minimum 45 Gy isodose volume shown): Treatment tolerance: With regard to side effects noted during radiotherapy, the patient tolerated treatment with expected toxicities for this treatment area and dose, including radiation dermatitis. This was managed withtopical creams. Treatment response: The patient's response to treatment was undetermined, as he was largely asymptomatic at the time ofpresentation. Future assessment will be determined via serial imaging and clinical exams. 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 He has been using Silvadene with good response. He has also been seen by Physical Therapy to be fitted with a compression garment to help minimize the anticipated lymphedema from his groin dissection and radiation therapy. Physical Exam: There has been nearly complete resolution of the prior moist desquamation with only a sliver of skin in the L groin fold that has not completely re-epithelialized. There is only minimal residual erythema of the skin. There is moderate induration of the dissected and irradiated groins. Impression: Nearly complete resolution of prior acute moist desquamation of the groin skin.He can continue skin care with the Silvadene for a few more days and then transition to a Vitamin E containing moisturizing skin lotion. Follow up plan: Next follow-up visit with Radiation Oncology in [facility] is scheduled for 11/04/23 for another skin check to confirm adequate and timely healing.He has received instructions to call this office or seek the help of the local emergency room if any further problems should arise prior to followup. Rodney Bella MD (covering for Rolly Peters M.D., M.S.) 10/28/2023 [facility] [place] ([facility] [employer] Commission on Cancer ([employer] [place]) Accredited Cancer Program [employer] (ACR) Accredited Radiation Oncology Program documented in this encounter Plan of Treatment Upcoming Encounters Date Type Department Care Team (Late st Contact Info) Description 06/07/2024 1:00 PM EST TH Visit (TeleHealth) [place] [address] Zachary Garcia MD [facility] [place] [address] 06/11/2024 9:00 AM EST Office [place] [address] Espinoza, Caroline E, OT 07/10/2024 8:00 AM EST Office [place] [address] Espinoza, Caroline E, OT 07/24/2024 10:00 AM EST Office [place] [address] Espinoza, Caroline E, OT 08/07/2024 10:00 AM EST Office [place] [address] Espinoza, Caroline E, OT 08/21/2024 10:00 AM EST Office [place] [address] Espinoza, Caroline E, OT documented as of this encounter Visit Diagnoses Diagnosis Penile cancer Malignant neoplasm of penis, part unspecified 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
--- OUTSIDE RECORDS SUMMARY | 2024-06-04 17:29 | XMS_ITS | Encounter Summary ---
Author Organization [facility] Address [facility] [place] [address] Care Team Providers Care Postal Inspector Name Role Phone Shannan Arellano MILL STENCILER Primary Care Provider [phone] Encounter Details Date Type Department Care Team (Late st Contact Info) Description 09/29/2023 4:00 PM EDT Office Visit Radiation Oncology at [address] [phone] Fito Hopkins MD [facility] [place] [address] Penile cancer Social History Tobacco Use Types Packs/Day Years Used Date Smoking Tobacco: Never Smokeless Tobacco: Never Alcohol Use Standard Drinks/Week Comments Yes 1 (1 standard drink = 0.6 oz pur e alcohol) [facility] Utilities Answer Date Recorded In the [...] place to sleep or slept in a detention (including now)? No 07/28/2023 DH IPV Inpatient [...] Sign Reading Time Taken Comments Blood Pressure 115/69 09/29/2023 4:08 PM EDT Pulse 91 09/29/2023 4:08 PM EDT Temperature 37.3 ??C (99.1 ??F) 09/29/2023 4:08 PM ED T Respiratory Rate 16 09/29/2023 4:08 PM EDT Oxygen Saturation 94% 09/29/2023 4:08 PM EDT Inhaled Oxygen Concentration - - Weight 73.8 kg (162 lb 12.8 oz) 09/29/2023 4:08 PM EDT Height - - Body Mass Index 24.76 09/27/2023 2:45 PM EDT documented in this encounter Progress Notes * Fito Hopkins MD - 09/29/2023 4:00 PM EDT Images from the original note were not included. s [facility] Medicine Radiation Oncology Radiation Oncology On-treatment Visit [...] 54 Gy in 30 fractions Current Dose: 32.4 Gy in 18 fractions Rn Cardiac Cath Tyson from Current Plan (minimum 45 Gy isodose volume shown): Interval Clinical Course General: Low energy GI: Stable slight nausea w chemotherapy - compazine helps; he did vomit x 1 he thinks b/c he ate too much at once No diarrhea, but 'paste-like' frequent stools w urgency. Imodium x 2 tabs has not really helped. Not following LRD / low FODMAP diet yet. : No dysuria or increased frequency. Stable nocturia 3x/nt. Skin: Skin darker in skin folds and his thinks a small area of superficial desquamation; has silvadene but has not applied it yet Pain: Pain score today is 0/10. Performance [...] confined to bed or chair Medications Medications 09/23/23 0848 Medication Sig Taking? Psyllium Seed-Sucrose (0) Powder Take by mouth. silver sulfADIAZINE (Silvadene) 1 % Cream Apply topically daily. loperamide (IMODIUM A-D) 2 mg Tablet Take by mouth 4 times daily as needed for Diarrhea. Maximum 16mg in 24 hours lidocaine-prilocaine (EMLA) Cream Apply topically as needed. Patient not taking: Reported on 09/08/2023 prochlorperazine (Compazine) 10 mg tablet Take 1 tablet by mouth every 6 hours as needed for Nausea. apixaban (Eliquis) 5 mg tablet Take 1 tablet by mouth 2 times daily. acetaminophen (Tylenol) 325 mg tablet Take 650 mg by mouth as needed for Pain. Maybe once a week famotidine (Pepcid) 40 mg tablet Take 40 mg by mouth. fluticasone propionate (Flonase) 50 mcg/actuation [place], Suspension by Each Nare route daily. oxyCODONE (Roxicodone) 5 mg tablet Take 1 tablet by mouth every 4 hours as needed for Pain (for severe pain not controlled by tylenol/ibuprofen). Patient not taking: Reported on 07/26/2023 Exam Vitals: There were no vitals taken for this visit. General: Appears well, in no distress Abd: Soft, nt Imaging/Labs Interval setup imaging has been checked and approved. See [facility] for details. Impression/Plan Tolerance to radiotherapy: Tolerating as anticipated. Continue as planned. Diarrhea: They will meet RD today. LRD, low FODMAP and Imodium teaching provided today. Skin: Silvadene for areas of desquamation; okay to use Rajeev's cream or other thin moisturizer on other in-field skin as long as skin is clean before coming for treatment. Followup: RTC for on-treatment assessment next week. No orders of the defined types were placed in this encounter. National Cancer [place] (NCI) Comprehensive Cancer Center [employer] on Cancer ([employer] [place]) Accredited Cancer Program [employer] ([employer]) Accredited Radiation Oncology Program documented in this encounter Plan of Treatment Upcoming Encounters Date Type Department Care Team (Late st Contact Info) Description 06/07/2024 1:00 PM EST TH Visit (TeleHealth) Urology at [place] [phone] Zachary Garcia MD [facility] [address] 06/11/2024 9:00 AM EST Office [place] [address] Espinoza, Caroline E, OT 07/10/2024 8:00 AM EST Office [place] [address] Espinoza, Caroline E, OT 07/24/2024 10:00 AM EST Office [place] [phone] Espinoza, Caroline E, OT 08/07/2024 10:00 AM EST Office [place] [address] Espinoza, Caroline E, OT 08/21/2024 10:00 AM EST Office [place] [address] Espinoza, Caroline E, OT documented as of this encounter Visit Diagnoses Diagnosis Penile cancer Malignant neoplasm of penis, part unspecified documented in this encounter Care Teams Postal Inspector Relationship Specialty Start Date End Date Shannan Arellano [place] [address] PCP - General Family Medicine 02/03/23 documented as of this encounter
--- OUTSIDE RECORDS SUMMARY | 2024-06-04 17:29 | XMS_ITS | Encounter Summary ---
[facility] [address] Care Team Providers Care Disposal Worker Name Role Phone Shannan Arellano APRN Primary Care Provider [phone] Encounter Details Date Type Department Care Team (Late st Contact Info) Description 10/17/2023 Notes Only Radiation Oncology at [address] [phone] Rolly Peters MD [address] [place] [address] [place] [address] Social History Tobacco Use Types Packs/Day Years Used Date Smoking Tobacco: Never Smokeless Tobacco: Never Alcohol Use Standard Drinks/Week Comments Yes 1 (1 standard drink = 0.6 oz pur e alcohol) [facility] Utilities Answer Date Recorded In the [...] as of this encounter Progress Notes * Rolly Peters MD - 10/17/2023 11:59 PM EDT Images from the original note were not included. [facility] Medicine Radiation Oncology Radiation Therapy Completion Note Patient ID Patient name: Eduardo Contreras [...] End Date Elapsed Days 09/06/23 10/17/23 [employer] Tanker Truck Driver Tyson from Current Plan (minimum 45 Gy isodose volume shown): Clinical Course Treatment tolerance: With regard to side effects noted during radiotherapy, the patient tolerated treatment with expected toxicities for this treatment area and dose, including radiation dermatitis. This was managed withtopical creams. Treatment response: The patient's response to treatment was undetermined, as he was largely asymptomatic at the time ofpresentation. Future assessment will be determined via serial imaging and clinical exams. Follow up plan: Follow-up visit with Radiation Oncology in [facility] is scheduled for 10/21/23 for weekly skin checks to confirm adequate and timely healing; he has received instructions to call this office or seek the help of the local emergency room if any further problems should arise prior to followup. ROLLY PETERS MD 10/20/2023 National Cancer [place] (NCI) Comprehensive Cancer Center [employer] Commission on Cancer ([employer] [place]) Accredited Cancer Program [employer] (ACR) Accredited Radiation Oncology Program documented in this encounter Plan of Treatment Upcoming Encounters Date Type Department Care Team (Late st Contact Info) Description 06/07/2024 1:00 PM EST TH Visit (TeleHealth) [place] [address] Zachary Garcia MD [facility] [place] [address] 06/11/2024 9:00 AM EST Office Visit [place] [address] Caroline Espinoza OT 07/10/2024 8:00 AM EST Office [place] [address] Caroline Espinoza OT 07/24/2024 10:00 AM EST Office [place] [phone] Caroline Espinoza OT 08/07/2024 10:00 AM EST Office [place] [address] Caroline Espinoza, OT 08/21/2024 10:00 AM EST Office [place] [address] Caroline Espinoza, OT documented as of this encounter Visit Diagnoses Not on filedocumented in this encounter Care Teams Disposal Worker Relationship Specialty Start Date End Date Shannan Arellano, SANDING MACHINE OPERATOR [facility] [place] [address] PCP - General Family Medicine 02/03/23 documented as of this encounter
--- OUTSIDE RECORDS SUMMARY | 2024-06-04 17:29 | XMS_ITS | Encounter Summary ---
[place] [address] Care Team Providers Care [place] Seamer Name Role Phone Shannan Arellano GAYLE Primary Care Provider [phone] Reason for Referral * Diagnostic Test (Routine) - Closed Specialty Diagnoses / Procedures Referred By Marry kelsey Referred To Contact Radiology Diagnoses Penile cancer Procedures NM PET CT Skull Base to Mid-thigh Rolly Peters MD [address] [place] [address] [place] [address] [place] [address] Referral ID Status Reason Start Date Expiration Date V isits Requested Visits Authorized [id number] Closed Specialty Service Requested 10/14/2023 04/14/2025 1 1 Encounter Details Date Type Department Care Team (Late st Contact Info) Description 10/14/2023 2:45 PM EDT Office Visit Radiation Oncology at [address] [phone] Rolly Peters MD [address] [place] [address] [place] [address] Penile cancer Social History Tobacco Use Types Packs/Day Years Used Date Smoking Tobacco: Never Smokeless Tobacco: Never Alcohol Use Standard Drinks/Week Comments Yes 1 (1 standard drink = 0.6 oz pur e alcohol) [facility] Utilities Answer Date Recorded In the past 12 months has [place], gas, oil, or water company threatened to [...] Sign Reading Time Taken Comments Blood Pressure 108/72 10/14/2023 2:56 PM EDT Pulse 82 10/14/2023 2:56 PM EDT Temperature 37.5 ??C (99.5 ??F) 10/14/2023 2:56 PM ED T Respiratory Rate 18 10/14/2023 2:56 PM EDT Oxygen Saturation 96% 10/14/2023 2:56 PM EDT Inhaled Oxygen Concentration - - Weight 72.1 kg (159 lb) 10/14/2023 2:56 PM EDT Height - - Body Mass Index 24.18 10/11/2023 9:04 AM EDT documented in this encounter Progress Notes * Rolly Peters MD - 10/14/2023 2:45 PM EDT Images from the original note were not included. s [facility] Medicine Radiation Oncology Radiation Oncology [...] 54 Gy in 30 fractions Current Dose: 52.2 Gy in 29 fractions Fire Extinguisher Technician Tyson from Current Plan (minimum 45 Gy isodose volume shown): Interval Clinical Course General: Overall feels poorly today GI: Ongoing nausea - compazine not very helpful. Still vomiting. Diarrhea better controlled w Imodium / GasX. Following LRD. : No dysuria or increased frequency. Stable nocturia 3x/nt. More urgency. Skin: More skin breakdown, using silvadene 1x/day Pain: Pain score today is 4/10. Not taking anything. Performance Status KPS Score ECOG Grade Definition [...] confined to bed or chair Medications Medications 10/14/23 4494 Medication Sig Taking? apixaban (Eliquis) 5 mg tablet Take 1 tablet by mouth 2 times daily. Yes simethicone (Gas-X Chew) 80 mg chewable tablet Take 80 mg by mouth every 6 hours as needed for Flatulence. Yes guaiFENesin (Robitussin) 20 mg/mL Liquid Take 200 mg by mouth 3 times daily as needed for Cough. Yes ondansetron ODT (Zofran-ODT) 8 mg disintegrating tablet Take 1 tablet by mouth every 8 hours as needed for Nausea. Put the tablet under your tongue and it will dissolve. Yes Psyllium Seed-Sucrose (0) Powder Take by mouth. Yes loperamide (IMODIUM A-D) 2 mg Tablet Take by mouth 4 times daily as needed for Diarrhea. Maximum 16mg in 24 hours Yes prochlorperazine (Compazine) 10 mg tablet Take 1 tablet by mouth every 6 hours as needed for Nausea. Yes acetaminophen (Tylenol) 325 mg tablet Take 650 mg by mouth as needed for Pain. Maybe once a week Yes famotidine (Pepcid) 40 mg tablet Take 40 mg by mouth. Yes fluticasone propionate (Flonase) 50 mcg/actuation [place], Suspension by Each Nare route daily. Yes silver sulfADIAZINE (Silvadene) 1 % Cream Apply topically daily. lidocaine-prilocaine (EMLA) Cream Apply topically as needed. Patient not taking: Reported on 09/08/2023 oxyCODONE (Roxicodone) 5 mg tablet Take 1 tablet by mouth every 4 hours as needed for Pain (for severe pain not controlled by tylenol/ibuprofen). Patient not taking: Reported on 07/26/2023 Exam Vitals: BP 108/72 (Patient Position: Sitting) Pulse 82 Temp 37.5 ??C (99.5 ??F) (Temporal) Resp 18 Wt 72.1 kg (159 lb) SpO2 96% BMI 24.18 kg/m?? General: Appears well, in no distress Abd: Soft, nt Skin: Moist desquamation left inguinal fold Imaging/Labs Interval setup imaging has been checked and approved. See [place] for details. Impression/Plan Tolerance to radiotherapy: Tolerating as anticipated. Continue as planned. Completes next week. Diarrhea: Cont Imodum, LRD/Low FODMAP diet Skin: Silvadene / Radiagel Followup: RV weekly for skin checks PET CT in 3 months No orders of the defined types were placed in this encounter. National Cancer [place] (NCI) Comprehensive Cancer Center [employer] Commission on Cancer ([employer] [place]) Accredited Cancer Program [employer] (ACR) Accredited Radiation Oncology Program documented in this encounter Plan of Treatment Upcoming Encounters Date Type Department Care Team (Late st Contact Info) Description 06/07/2024 1:00 PM EST TH Visit (TeleHealth) [place] [phone] [facility] [place] [address] 06/11/2024 9:00 AM EST Office Visit [place] [address] Caroline Espinoza, OT 07/10/2024 8:00 AM EST Office Visit [place] [address] Caroline Espinoza, OT 07/24/2024 10:00 AM EST Office Visit [place] [address] Caroline Espinoza, OT 08/07/2024 10:00 AM EST Office Visit [place] [address] Caroline Espinoza, OT 08/21/2024 10:00 AM EST Office Visit [place] [address] Caroline Espinoza, OT documented as of this encounter Results * NM PET CT Skull Base to Mid-thigh (01/11/2024 1:06 PM EDT) WORKSTATION ID [id number] RAD Anatomical Region Laterality Modality Positron Emissio [...] who have questions please contact the health complex care nurse practitioner that requested your imaging first. ? Narrative 01/12/2024 11:38 AM EDT EXAMINATION: NM PET CT STANDARD SKULL BASE TO MID-THIGH CLINICAL HISTORY: Genital cancer, assess treatment response C60.9, Malignant neoplasm of penis, unspecified TECHNIQUE: Following IV injection of 53-uacvlv-8-deoxyglucose (FDG) a standard uptake of approximately 60 [...] penis, unspecified TECHNIQUE: Following IV injection of 48-wkkkpx-3-deoxyglucose (FDG) astandard uptake of approximately 60 minutes, [...] patients who have questions please contactthe health complex care nurse practitioner that requested your imaging first. Electronically signed by: Santos Lion [facility] ([phone]),at 01/12/2024 11:38 AM Rolly Peters MD IMG PET ORDERABLES documented in this encounter Visit Diagnoses Diagnosis Penile cancer Malignant neoplasm of penis, part unspecified Penile cancer Malignant neoplasm of penis, part unspecified documented in this encounter Care Teams [place] Seamer Relationship Specialty Start Date End Date Shannan Arellano, APPRENTICE PAINTER [employer] [address] [place] [address] PCP - General Family Medicine 02/03/23 documented as of this encounter
--- OUTSIDE RECORDS SUMMARY | 2024-06-04 17:29 | XMS_ITS | Encounter Summary ---
Author Organization [facility] Address [facility] [place] [address] Care Team Providers Care Epoxy Coatings Installer Name Role Phone Shannan Arellano GAYLE Primary Care Provider [phone] Encounter Details Date Type Department Care Team (Late st Contact Info) Description 10/11/2023 9:30 AM EDT Office Visit Hematology/Oncology at [address] [phone] Olivier Obrien MD [facility] [place] [address] Mikhail Chacon APRN [facility] [place] [address] Penile cancer; Fatigue, unspecified type Social History Tobacco Use Types Packs/Day Years Used Date Smoking Tobacco: Never Smokeless Tobacco: Never Alcohol Use Standard Drinks/Week Comments Yes 1 (1 standard drink = 0.6 oz pur e alcohol) [facility] Utilities Answer Date Recorded In the past 12 months has [employer], gas, oil, or water [employer] threatened to shut off services in your [...] Sign Reading Time Taken Comments Blood Pressure 109/71 10/11/2023 9:04 AM EDT Pulse 82 10/11/2023 9:04 AM EDT Temperature 36.4 ??C (97.5 ??F) 10/11/2023 9:04 AM ED T Respiratory Rate 18 10/11/2023 9:04 AM EDT Oxygen Saturation 98% 10/11/2023 9:04 AM EDT Inhaled Oxygen Concentration - - Weight 71.6 kg (157 lb 12.8 oz) 10/11/2023 9:04 AM EDT Height 172.7 cm (5' 7.99) 10/11/2023 9:04 AM ED T Body Mass Index 24 10/11/2023 9:04 AM EDT documented in this encounter Progress Notes * Mikhail Chacon APRN - 10/11/2023 9:30 AM EDT Images from the original note [...] dissection Left lap pelvic node dissection Path: [id number] poorly differentiated penile cancer 4/10 Left inguinal [...] is in clinic for follow-up. He is s/p mitomycin/5-fu x 2 cycles which he completed on 09/27/23. Last RT is scheduled for 10/16. He has fatigue and general malaise. No mouth sores. Swelling to his groin, thigh and scrotum and LE is improved. Continues Eliquis forhx of DVT, no problems with bleeding. No fever or chills or signs of infection. He has intermittentdiarrhea and imodium helps. Decreased appetite. Has some reflux and indigestion and GasX is helping. Denies any pain. The remainder of his review of systems reviewed and is negative. 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 The patient has been for 30 yearswith 6 children (between them) . The patient drinks occasionally. He is here today with his . Allergies: No Known Allergies Medications: Your Medications Accurate as of October 11, 2023 9:45 AM. If you have any questions, ask your [...] mg Refills: 0 fluticasone propionate 50 mcg/actuation nasal spray, suspension Commonly known as: Flonase by Each Nare route daily. Refills: 0 guaiFENesin 20 mg/mL Liquid Commonly known as: Robitussin Take 200 mg by mouth 3 times daily as needed for Cough. 200 mg Refills: 0 lidocaine-prilocaine Cream Commonly known as: EMLA Apply topically as needed. Quantity: 30 g Refills: 1 loperamide 2 mg Tablet Commonly known as: IMODIUM A-D Take by mouth 4 times daily as needed for Diarrhea. Maximum 16 mg in 24 hours Refills: 0 ondansetron ODT 8 mg disintegrating tablet Commonly known as: Zofran-ODT Take 1 tablet by mouth every 8 hours as needed for Nausea. Put the tablet under your tongue and it will dissolve. 8 mg Quantity: 30 tablet Refills: PRN oxyCODONE 5 mg tablet Commonly known as: Roxicodone Take 1 tablet by mouth every 4 hours as needed for Pain (for severe pain not controlled by tylenol/ibuprofen). 5 mg Quantity: 5 tablet Refills: 0 prochlorperazine 10 mg tablet Commonly known as: Compazine Take 1 tablet by mouth every 6 hours as needed for Nausea. 10 mg Quantity: 30 tablet Refills: 3 Psyllium Seed-Sucrose Powder Commonly known as: 0 Take by mouth. Refills: 0 silver sulfADIAZINE 1 % Cream Commonly known as: Silvadene Apply topically daily. Quantity: 50 g Refills: 0 simethicone 80 mg chewable tablet Commonly known as: Gas-X Chew Take 80 mg by mouth every 6 hours as needed for Flatulence. 80 mg Refills: 0 Review of Systems: As in interval history PE: Constitutional: NAD HENT: Head: NCAT Eyes: Non-injected, anicteric. Neck: No lymphadenopathy Cardiovascular: RRR, no murmur. Resp: Effort normal. No respiratory distress. CTA Lymph: No palpable lymph nodes in cervical, supraclavicular, axillary areas. Abdominal: Soft, NT, ND, BS+ Extremities: No swelling. BP 109/71 (Patient Position: Sitting) Pulse 82 Temp 36.4 ??C (97.5 ??F) (Temporal) Resp 18 Ht 172.7 cm (5' 7.99) Wt 71.6 kg (157 lb 12.8 oz) SpO2 98% BMI 24.00 kg/m?? Pathology: 06/24/23 DIAGNOSIS A - Penile foreskin, excision: No evidence of high-grade dysplasia or malignancy. 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 C - Additional [...] Ennis Verified: 07/06/2023 11:48 Pathologist Performed at: -[facility] Dept. of Pathology, [place] [address] Dike Supervisor: Corbin Doll MD, FCAP, CLIA Certificate: [id number] SYNOPTIC Specimen Procedure: Wide local excision of [...] Block(s): B3, B4, B6 Normal Block(s): N/A [facility] 2022 Q3 Release DISCUSSION The infiltrating [...] clear cell, lymphoepithelioma-like, or medullary subtypes). Labs: 10/11/23: WBC 4.45, hemoglobin 11.9, platelet count 244, ANC 2.57, BUN 15, creatinine 1.1, TB 0.3, alkaline phosphatase 60, sodium 138, potassium 3.5, AST 16, ALT 25, 09/20/23: WBC 2.68, hemoglobin 11.5, platelet count [...] small size and location. Assessment and Plan: Diagnosis:[id number] poorly diff penile cancer sp local excision and bilateral node dissection. LN 01/17 positive, / left inguinal lymph nodes with negative margins left 08/30 pelvic nodes positive,ENEneg Treatment: 06/24/23 Local excision and penile glans reconstruction/neomeatus/ Bilateral Groin dissection Left lap pelvic node dissection -09/06/23 to present: mitocycin/5-fu chemotherapy x 2 cycles (completed 09/27/23) plus RT (final dose scheduled for 10/16) Pathology: specimen showing poorly differentiated squamous cell [...] to monitor platelet counts closely on anticoagulation. 10/11/23 Eduardo is seen today for follow up visit. He completed mitomycin/5-fu x 2 cycles on 09/27/23. He is scheduled to complete RT on 10/17/23. #Post op lymphedema and scrotal swelling: Improved, continues with compression and follows with PT. #fatigue: secondary to treatment, tolerable and remains active. #Diarrhea: intermittent, secondary to treatment. Imodium helps #Hx of post-op DVT: continues Eliquis and will follow up with Dr. Garcia as to how long to continue Plan: F/u with Dr. Garcia 3-4 months after treatment and I will message his office to coordinate. Per NCCN guidelines surveillance recommended with clinical exam and CT CAP q 3 months x 1 year, then q6 months x year 2-4. Will message [address] Garcia to coordinate follow up. Continue Eliquis and f/u with Dr. Garcia in regards to how long to continue anticoagulation therapy. Mikhail Chacon APRN 30 minutes were spent on date of visit, including non-face to face time. documented in this encounter Miscellaneous Notes * Addendum Note - Mikhail Chacon APRN - 10/11/2023 9:30 AM EDTAddended by: MIKHAIL CHACON on: 10/11/2023 12:49 PM Modules accepted: Orders documented in this encounter Plan of Treatment Upcoming Encounters Date Type Department Care Team (Late st Contact Info) Description 06/07/2024 1:00 PM EST TH Visit (TeleHealth) [place] [address] Zachary Garcia MD [facility] [place] [address] 06/11/2024 9:00 AM EST Office [place] [address] Espinoza, Caroline E, OT 07/10/2024 8:00 AM EST Office [place] [address] Espinoza, Caroline E, OT 07/24/2024 10:00 AM EST Office [place] [address] Espinoza, Caroline E, OT 08/07/2024 10:00 AM EST Office [place] [address] Espinoza, Caroline E, OT 08/21/2024 10:00 AM EST Office [place] [address] Espinoza, Caroline E, OT documented as of this encounter Visit Diagnoses Diagnosis Penile cancer Malignant neoplasm of penis, part unspecified Fatigue, unspecified type documented in this encounter Care Teams Epoxy Coatings Installer Relationship Specialty Start Date End Date Shannan Arellano APRN [address] [place] [address] PCP - General Family Medicine 02/03/23 documented as of this encounter
--- OUTSIDE RECORDS SUMMARY | 2024-06-04 17:29 | XMS_ITS | Encounter Summary ---
Author Organization [facility] Address [facility] [place] [address] Care Team Providers Care Barley Steeper Name Role Phone Shannan Arellano APRN Primary Care Provider [phone] Encounter Details Date Type Department Care Team (Late st Contact Info) Description 09/23/2023 9:00 AM EDT Clinical Support Hematology/Oncology at [address] [phone] Johanna Castillo, T[facility] DR [place] [address] Penile cancer Social History Tobacco Use Types Packs/Day Years Used Date Smoking Tobacco: Never Smokeless Tobacco: Never Alcohol Use Standard Drinks/Week Comments Yes 1 (1 standard drink = 0.6 oz pur e alcohol) [facility] Utilities Answer Date Recorded In the past [...] as of this encounter Progress Notes * Anna Spencer E, RD - 09/23/2023 9:00 AM EDT Nutrition Note Met with Eduardo and his after OTV appointment with Dr. Peters today. Patient had diagnosis of stage IV HPV associated penile cancer. He is receiving chemoradiation to the pelvis and grown where he had [address]. He is being treated with mitomycin/5-fu, which was held this week due to lowANC. He started treatment on 09/13/23. Patient reports having not diarrhea, but paste-like frequent stools with urgency. He has tried imodium twice which has not really helped. He is still following his regular diet. He says he does have diarrhea after chemotherapy days. He is having mild nausea, compazine helps with this. Patient is feeling fatigued today. Wt Readings from Last 10 Encounters: 09/23/23 73.8 kg (162 lb 12.8 oz) 09/20/23 74.9 kg (165 lb 3.2 oz) 09/15/23 75.9 kg (167 lb 6.4 oz) 09/13/23 74.4 kg (164 lb) 09/08/23 75.4 kg (166 lb 3.2 oz) 09/06/23 74.5 kg (164 lb 3.2 oz) 08/23/23 75.2 kg (165 lb 12.8 oz) 08/16/23 75.8 kg (167 lb) 07/28/23 71.3 kg (157 lb 3.2 oz) 07/26/23 71.7 kg (158 lb) BMI 25.1 1# loss from start of treatment 09/12-09/22 Diet: Following regular diet, not limiting fiber at this point. Medications: Metamucil, Imodium prn, compazine prn, Eliquis, tylenol prn, pepcid, oxycodone prn Labs on 09/20/23: WBC 2.68, hemoglobin 11.5, platelet count 101, ANC 1.41, BUN 16, creatinine 0.9, TB0.3, alkaline phosphatase 64, sodium 141, potassium 4.1, AST 22, ALT 28 Recommendations: Reviewed diet for treatment associated diarrhea/change in stools with patient. Encouraged limiting insoluble fiber, lactose, high fat foods, spicy foods to help control bowels. Provided printed handout of lists of foods to include and those to limit/avoid. Will be available to follow up as needed; no appointments scheduled at this time. Provided my card with contact information. documented in this encounter Plan of Treatment Upcoming Encounters Date Type Department Care Team (Late st Contact Info) Description 06/07/2024 1:00 PM EST TH Visit (TeleHealth) [place] [phone] Zachary Garcia MD [facility] [place] [address] 06/11/2024 9:00 AM EST Office Visit [place] [phone] Caroline Espinoza OT 07/10/2024 8:00 AM EST Office [place] [phone] Espinoza, Caroline E, OT 07/24/2024 10:00 AM EST Office [place] [address] Espinoza, Caroline E, OT 08/07/2024 10:00 AM EST Office [place] [address] Espinoza, Caroline E, OT 08/21/2024 10:00 AM EST Office [place] [address] Espinoza, Caroline E, OT documented as of this encounter Visit Diagnoses Diagnosis Penile cancer Malignant neoplasm of penis, part unspecified documented in this encounter Care Teams Barley Steeper Relationship Specialty Start Date End Date Shannan Arellano, RECORDER HELPER [employer]OSPECT[employer] [place] [address] PCP - General Family Medicine 02/03/23 documented as of this encounter
--- OUTSIDE RECORDS SUMMARY | 2024-06-04 17:29 | XMS_ITS | Encounter Summary ---
Author Organization [facility] Address [facility] [address] Care Team Providers Care Guzzler Builder Name Role Phone Shannan Arellano APRN Primary Care Provider [phone] Encounter Details Date Type Department Care Team (Latest Contact Info) Description 09/23/2023 Travel Social History Tobacco Use Types Packs/Day Years Used Date Smoking Tobacco: Never Smokeless Tobacco: Never Alcohol Use Standard Drinks/Week Comments Yes 1 (1 standard drink = 0.6 oz pur e alcohol) [facility] Utilities Answer Date Recorded In the past 12 months has th e electric, gas, oil, or water [employer] threatened to shut off services in your [...] PM EST TH Visit (TeleHealth) [place] [address] Zachary Garcia MD [facility] [place] [address] 06/11/2024 9:00 AM EST Office Visit [place] [address] EspinozaTia de la torreyl E, OT 07/10/2024 8:00 AM EST Office [place] [address] Espinoza, Caroline E, OT 07/24/2024 10:00 AM EST Office [place] [address] Espinoza, Caroline E, OT 08/07/2024 10:00 AM EST Office [place] [address] Espinoza, Caroline E, OT 08/21/2024 10:00 AM EST Office Visit [place] [address] Caroline Espinoza, OT documented as of this encounter Visit Diagnoses Not on filedocumented in this encounter Care Teams Guzzler Builder Relationship Specialty Start Date End Date Shannan Arellano, [place] [address] PCP - General Family Medicine 02/03/23 documented as of this encounter
--- OUTSIDE RECORDS SUMMARY | 2024-06-04 17:29 | XMS_ITS | Encounter Summary ---
Author Organization [facility] Address [facility] [address] Care Team Providers Care Social Welfare Research Worker Name Role Phone Shannan Arellano APRN Primary Care Provider [phone] Encounter Details Date Type Department Care Team (Latest Contact Info) Description 10/10/2023 Travel Social History Tobacco Use Types Packs/Day Years Used Date Smoking Tobacco: Never Smokeless Tobacco: Never Alcohol Use Standard Drinks/Week Comments Yes 1 (1 standard drink = 0.6 oz pur e alcohol) [facility] Utilities Answer Date Recorded In the past 12 months has th e electric, gas, oil, or water [email or web address] threatened to shut off services in your [...] in a fdc (including now)? No 07/28/2023 IPV Inpatient Questions [...] PM EST TH Visit (TeleHealth) [place] [address] Zachary Garcia MD [facility] [place] [address] 06/11/2024 9:00 AM EST Office Visit [place] [address] EspinozaTia de la torreyl E, OT 07/10/2024 8:00 AM EST Office Visit [place] [address] Espinoza, Caroline E, OT 07/24/2024 10:00 AM EST Office Visit [place] [address] Espinoza, Caroline E, OT 08/07/2024 10:00 AM EST Office Visit [place] [address] Espinoza, Caroline E, OT 08/21/2024 10:00 AM EST Office Visit [place] [address] Caroline Espinoza, OT documented as of this encounter Visit Diagnoses Not on filedocumented in this encounter Care Teams Social Welfare Research Worker Relationship Specialty Start Date End Date Shannan Arellano, ANNEALING [place] [address] PCP - General Family Medicine 02/03/23 documented as of this encounter
--- OUTSIDE RECORDS SUMMARY | 2024-06-04 17:29 | XMS_ITS | Encounter Summary ---
Author Organization [facility] [place] [address] Care Team Providers Care Lan Manager Name Role Phone Shannan Arellano APRN Primary Care Provider [phone] Encounter Details Date Type Department Care Team (Late st Contact Info) Description 09/23/2023 8:15 AM EDT Office Visit Radiation Oncology at [address] [phone] Rolly Peters MD [address] [place] [address] [place] [address] Penile cancer Social History Tobacco Use Types Packs/Day Years Used Date Smoking Tobacco: Never Smokeless Tobacco: Never Alcohol Use Standard Drinks/Week Comments Yes 1 (1 standard drink = 0.6 oz pur e alcohol) [facility] Utilities Answer Date Recorded In [...] Sign Reading Time Taken Comments Blood Pressure 107/67 09/23/2023 8:28 AM EDT Pulse 91 09/23/2023 8:28 AM EDT Temperature 37.1 ??C (98.8 ??F) 09/23/2023 8:28 AM ED T Respiratory Rate 16 09/23/2023 8:28 AM EDT Oxygen Saturation 94% 09/23/2023 8:28 AM EDT Inhaled Oxygen Concentration - - Weight 73.8 kg (162 lb 12.8 oz) 09/23/2023 8:28 AM EDT Height - - Body Mass Index 24.76 09/20/2023 1:34 PM EDT documented in this encounter Progress Notes * Rolly Peters MD - 09/23/2023 8:15 AM EDT Images from the original note were not included. [facility] Medicine Radiation Oncology Radiation Oncology On-treatment Visit [...] 54 Gy in 30 fractions Current Dose: 25.2 Gy in 14 fractions Lobster Fisherman Tyson from Current Plan (minimum 45 Gy isodose volume shown): Interval Clinical Course General: No changes since last seen. GI: Stable slight nausea w chemotherapy - compazine helps No diarrhea, but 'paste-like' frequent stools w urgency. Imodium x 2 tabs has not really helped. Not following LRD / low FODMAP diet yet. : No dysuria or increased frequency. Stable nocturia 3x/nt. Skin: No erythema or drainage. Pain: Pain [...] to bed or chair Medications Medications 09/23/23 0518 Medication Sig Taking? Psyllium Seed-Sucrose (0) Powder [...] mouth. Yes fluticasone propionate (Flonase) 50 mcg/actuation [place], Suspension by Each Nare route daily. Yes lidocaine-prilocaine (EMLA) Cream Apply topically as needed. Patient not taking: Reported on 09/08/2023 oxyCODONE (Roxicodone) 5 mg tablet Take 1 tablet by mouth every 4 hours as needed for Pain (for severe pain not controlled by tylenol/ibuprofen). Patient not taking: Reported on 07/26/2023 Exam Vitals: BP 107/67 (Patient Position: Sitting) Pulse 91 Temp 37.1 ??C (98.8 ??F) (Temporal) Resp 16 Wt 73.8 kg (162 lb 12.8 oz) SpO2 94% BMI 24.76 kg/m?? General: Appears well, in no distress Abd: Soft, nt Imaging/Labs Interval setup imaging has been checked and approved. See [employer] for details. Impression/Plan Tolerance to radiotherapy: Tolerating as anticipated. Continue as planned. Diarrhea: They will meet RD today. LRD, low FODMAP and Imodium teaching provided today. Followup: RTC for on-treatment assessment next week. No orders of the defined types were placed in this encounter. [facility] [place] (NCI) [facility] [employer] Commission on Cancer ([employer] [place]) Accredited Cancer Program [employer] (ACR) Accredited Radiation Oncology Program documented in this encounter Plan of Treatment Upcoming Encounters Date Type Department Care Team (Late st Contact Info) Description 06/07/2024 1:00 PM EST TH Visit (TeleHealth) [place] [address] Zachary Garcia MD [facility] [place] [address] 06/11/2024 9:00 AM EST Office [place] [address] Espinoza, Caroline E, OT 07/10/2024 8:00 AM EST Office [place] [address] Espinoza, Caroline E, OT 07/24/2024 10:00 AM EST Office [place] [address] Espinoza, Caroline E, OT 08/07/2024 10:00 AM EST Office [place] [phone] Espinoza, Caroline E, OT 08/21/2024 10:00 AM EST Office [place] [address] Espinoza, Caroline E, OT documented as of this encounter Visit Diagnoses Diagnosis Penile cancer Malignant neoplasm of penis, part unspecified documented in this encounter Care Teams Lan Manager Relationship Specialty Start Date End Date Shannan Arellano, GLOBAL [place]ING [place] [address] PCP - General Family Medicine 02/03/23 documented as of this encounter
--- OUTSIDE RECORDS SUMMARY | 2024-06-04 17:29 | XMS_ITS | Encounter Summary ---
Author Organization [facility] Address [facility] [place] [address] Care Team Providers Care Soil Tester Name Role Phone Shannan Arellano APRN Primary Care Provider Encounter Details Date Type Department Care Team (Latest Contact Info) Description 09/28/2023 Travel Social History Tobacco Use Types Packs/Day Years Used Date Smoking Tobacco: Never Smokeless Tobacco: Never Alcohol Use Standard Drinks/Week Comments Yes 1 (1 standard drink = 0.6 oz pur e alcohol) [facility] Utilities Answer Date Recorded In the past 12 months has th e electric, gas, oil, or water [employer] threatened to shut off services in your [...] PM EST TH Visit (TeleHealth) [place] [address] Zachary Garcia MD [facility] [place] [address] 06/11/2024 9:00 AM EST Office Visit [place] [address] EspinozaTia de la torreyl E, OT 07/10/2024 8:00 AM EST Office Visit [place] [address] Espinoza, Caroline E, OT 07/24/2024 10:00 AM EST Office [place] [address] Espinoza, Caroline E, OT 08/07/2024 10:00 AM EST Office [place] [address] Espinoza, Caroline E, OT 08/21/2024 10:00 AM EST Office Visit [place] [address] Caroline Espinoza, OT documented as of this encounter Visit Diagnoses Not on filedocumented in this encounter Care Teams Soil Tester Relationship Specialty Start Date End Date Shannan Arellano, [place] [address] PCP - General Family Medicine 02/03/23 documented as of this encounter
--- OUTSIDE RECORDS SUMMARY | 2024-06-04 17:29 | XMS_ITS | Encounter Summary ---
Author Organization [facility] Address [facility] [address] Care Team Providers Care Mangle Operator Garments Name Role Phone Shannan Arellano APRN Primary Care Provider [phone] Encounter Details Date Type Department Care Team (Latest Contact Info) Description 10/12/2023 Travel Social History Tobacco Use Types Packs/Day Years Used Date Smoking Tobacco: Never Smokeless Tobacco: Never Alcohol Use Standard Drinks/Week Comments Yes 1 (1 standard drink = 0.6 oz pur e alcohol) [facility] Utilities Answer Date Recorded In the past 12 months has th e electric, gas, oil, or water [employer] threatened to shut off services in your [...] PM EST TH Visit (TeleHealth) [place] [address] Zcahary Garcia MD [facility] [place] [address] 06/11/2024 9:00 AM EST Office Visit [place] [address] EspinozaTia de la torreyl E, OT 07/10/2024 8:00 AM EST Office Visit [place] [address] Espinoza, Caroline E, OT 07/24/2024 10:00 AM EST Office Visit [place] [address] Espinoza, Caroline E, OT 08/07/2024 10:00 AM EST Office Visit [place] [address] Espinoza, Caroline E, OT 08/21/2024 10:00 AM EST Office Visit [place] [address] Caroline Espinoza, OT documented as of this encounter Visit Diagnoses Not on filedocumented in this encounter Care Teams Mangle Operator Garments Relationship Specialty Start Date End Date Shannan Arellano, SEED [employer] [place] [address] PCP - General Family Medicine 02/03/23 documented as of this encounter
--- OUTSIDE RECORDS SUMMARY | 2024-06-04 17:29 | XMS_ITS | Encounter Summary ---
Author Organization [facility] Address [facility] [place] [address] Care Team Providers Care Institutional Nutrition Consultant Name Role Phone Shannan Arellano GAYLE Primary Care Provider [phone] Encounter Details Date Type Department Care Team (Late st Contact Info) Description 09/21/2023 Orders Only Hematology/Oncology at [address] [phone] [facility] [place] [address] Social History Tobacco Use Types Packs/Day Years Used Date Smoking Tobacco: Never Smokeless Tobacco: Never Alcohol Use Standard Drinks/Week Comments Yes 1 (1 standard drink = 0.6 oz pur e alcohol) [facility] Utilities Answer Date Recorded In the [...] PM EST TH Visit (TeleHealth) [place] [address] Zachary Garcia MD [facility] [place] [address] 06/11/2024 9:00 AM EST Office Visit Occupational [place] [address] Caroline Espinoza, OT 07/10/2024 8:00 AM EST Office Visit Occup[place] [address] Caroline Espinoza, OT 07/24/2024 10:00 AM EST Office Visit Occup[place] [address] Caroline Espinoza, OT 08/07/2024 10:00 AM EST Office Visit Occup[place] [address] Caroline Espinoza OT 08/21/2024 10:00 AM EST Office Visit Occupational [place] [address] Caroline Espinoza OT documented as of this encounter Visit Diagnoses Not on filedocumented in this encounter Care Teams Institutional Nutrition Consultant Relationship Specialty Start Date End Date Shannan Arellano, HOT METAL MIXER OPERATOR [place] [address] [place] [address] PCP - General Family Medicine 02/03/23 documented as of this encounter
--- OUTSIDE RECORDS SUMMARY | 2024-06-04 17:30 | XMS_ITS | Encounter Summary ---
Author Organization [facility] Address [facility] [place] [address] Care Team Providers Care Case Resolution Specialist Name Role Phone Shannan Arellano APRN Primary Care Provider [phone] Encounter Details Date Type Department Care Team (Late st Contact Info) Description 07/26/2023 8:40 AM EST [place] [phone] Shelbie Garcia MD [facility] [place] [address] Penile cancer Social History Tobacco Use Types Packs/Day Years Used Date Smoking Tobacco: Never Smokeless Tobacco: Never Alcohol Use Standard Drinks/Week Comments Yes 1 (1 standard drink = 0.6 oz pur e alcohol) [facility] Inpatient Questions Answer Date Recorded Does Anyone [...] Sign Reading Time Taken Comments Blood Pressure 120/77 07/26/2023 8:41 AM EST Pulse 87 07/26/2023 8:41 AM EST Temperature - - Respiratory Rate - - Oxygen Saturation - - Inhaled Oxygen Concentration - - Weight - - Height - - Body Mass Index - - documented in this encounter Progress Notes * Shelbie Garcia MD - 07/26/2023 8:40 AM EST Seen with Dr Loyd Much better Some induration on Left Drains still with moderate output, though clear. F/U 1 week Continue Levaquin through that appt. Sees Aziza later the week * Maury Loyd MD - 07/26/2023 8:40 AM EST Images from the original note were not included. Patient Name: Ebony Contreras Date of Service: 07/26/2023 Primary Care Provider: Shannan Arellano APRN Reason for Visit: Ebony Contreras is a 73 y.o. male who [...] dissection Left lap pelvic node dissection Path: [id number] poorly differentiated penile cancer 4/10 Left inguinal and 3/13 Left pelvic nodes. 0/8 Right nodes. Margins Negative (to be confirmed at tumor board review) [facility] Department of Pathology and Laboratory Medicine Broadcast Traffic Coordinator: Corbin Doll MD, AP CLIA Certificate: [id number] Name: EBONY CONTRERAS Provider: SHELBIE GARCIA Client: [facility] /Age/Sex: 1950 73 years Male Location: L2WDS; 0210; A The signing pathologist has (i) examined the relevant preparation(s) for the specimen(s); and (ii) rendered or confirmed the diagnosis(es). [facility] Printed: 07/06/2023 11:48 EST Dept. of Pathology and Laboratory Medicine [place] [address] Pathology Report Collected: 06/24/2023 12:57 EST Received: 06/24/2023 13:23 EST Surgical Pathology DIAGNOSIS A - Penile foreskin, excision: No evidence of high-grade dysplasia or malignancy. 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 C - Additional [...] Ennis Verified: 07/06/2023 11:48 Pathologist Performed at: [facility] Dept. of Pathology, [place] [address] Broadcast Traffic Coordinator: Corbin Doll MD, FCAP, CLIA Certificate: [id number] SYNOPTIC Specimen Procedure: Wide local excision of ventral glans penis and distal aspect of urethra Foreskin: Cannot be determined - Foreskin separately removed (Specimen A) Tumor Site: Glans Tumor Size: 0.8 Centimeters [...] / carcinoma in situ Regional Lymph Nodes Regional Lymph Node Status: Tumor present in regional lymph node(s) Number of Lymph Nodes with Tumor: 7 Makayla Site(s) with Tumor: Inguinal - Left; Pelvic [...] Block(s): B3, B4, B6 Normal Block(s): N/A [facility] 2022 Q3 Release DISCUSSION The infiltrating [...] warty, clear cell, lymphoepithelioma-like, or medullary subtypes). Negative urethroscopy. distal penile mass, ventral aspect [...] 07/21/23 with Levaquin and 4 total drains. 07/26/23: Doing well, drains SS. Walking around home. Afebrile and induration of groin continuing to improve. Drains in last 24hours: L#1 original - 165mL R#2 original- 205mL L#3 new - 55mL R#4 new - 15mL Wearing his stockings and biker shorts Past Medical History: None Past Surgical History: None Medications: Reviewed Allergies: Reviewed Family History: There is no family history of Penile issues. Father ASCVD. 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 The patient has been for 30 years with 6 children (between them) . The patient drinks rarely Tobacco: Never. Systems review: He can walk a mile. Physical Exam: Looks well Penis look excellent. Groin improved, mild induration of left groin still but without erythema. 4 drains with SS output. Labs none X-rays 04/22/2023 MR Groin IMPRESSION 1. Mass of the distal corpus spongiosum, 1.2 cm. No invasion of the corpora cavernosa or glans penis, within the limitations of image quality. 2. Suspicious left inguinal lymph nodes, largest 1.4 cm. 06/21/2023 PET IMPRESSION 1. Makayla metastases in the left inguinal, left distal external iliac, and left anterior obturator regions. 2. No distant sites of metastasis. 3. The primary malignancy in the distal urethra is not evident on this exam, likely due to its small size and location. Tumor Board 07/14/2022 Discussion Radiology: Positive left inguinal and left external iliac lymph nodes seen on PET. 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 Positive nodes - 7 total. No evidence of extra-makayla disease. Rad Onc: Would recommend adjuvant chemoRT with treatment of surgical bed as well due to HPV relateddisease. Recommendation Recommend referral for discussion with patient of adjuvant chemoRT with treatment of the surgical bed. Impression: [id number] poorly diff penile cancer sp local excision and bilateral node dissection. With negative margins 3/13 pelvic nodes positive. Doing well after re-admission for collections not draining and SSI Plan: Continue stockings Bike Shorts Continue Levaquin 500mg daily Continue Eliquis 1 week for a f/u IR drain check on 08/04/23 Hem Onc appointment 07/26/23 Rad Onc appointment 07/28/23 All questions were answered documented in this encounter Plan of Treatment Upcoming Encounters Date Type Department Care Team (Late st Contact Info) Description 06/07/2024 1:00 PM EST TH Visit (TeleHealth) Urology at [place] [phone] Shelbie Garcia MD [facility] [place] [address] 06/11/2024 9:00 AM EST Office Visit [place] [address] Espinoza, Caroline E, OT 07/10/2024 8:00 AM EST Office [place] [address] Espinoza, Caroline E, OT 07/24/2024 10:00 AM EST Office [place] [address] Espinoza, Caroline E, OT 08/07/2024 10:00 AM EST Office [place] [address] Espinoza, Caroline E, OT 08/21/2024 10:00 AM EST Office [place] [address] Espinoza, Caroline E, OT documented as of this encounter Visit Diagnoses Diagnosis Penile cancer Malignant neoplasm of penis, part unspecified documented in this encounter Care Teams Case Resolution Specialist Relationship Specialty Start Date End Date Shannan Arellano, OCEANO[place] [address] PCP - General Family Medicine 02/03/23 documented as of this encounter
--- OUTSIDE RECORDS SUMMARY | 2024-06-04 17:30 | XMS_ITS | Encounter Summary ---
Author Organization [facility] Address [facility] [place] [address] Care Team Providers Care Health Analytics Consultant Name Role Phone Shannan Arellano GAYLE Primary Care Provider [phone] Reason for Visit * Reason Onset Date Comments New Medication Request 09/02/2023 EMLA Encounter Details Date Type Department Care Team (Late st Contact Info) Description 09/02/2023 Telephone Hematology/Oncology at [address] [address] Lucinda Cardenas APRN [facility] [place] [address] New Medication Request (EMLA ) Social History Tobacco Use Types Packs/Day Years Used Date Smoking Tobacco: Never Smokeless Tobacco: Never Alcohol Use Standard Drinks/Week Comments Yes 1 (1 standard drink = 0.6 oz pur e alcohol) [facility] Utilities Answer Date Recorded In the past 12 months has e electric, gas, oil, or water [employer] threatened to shut off services in your [...] Telephone Encounter - Lionel García RN - 09/02/2023 2:35 PM EDT ----- Message from Chasidy Cali sent at 09/02/2023 2:28 PM EDT ----- Sylvie called regarding her Eduardo. It was mentioned to them that there is a topical creamthat can be applied to the skin prior to chemotherapy. They are wondering if that could be called into [facility] in [place]. She thinks the name of the cream is CINDI? Any questions please callthem at [phone] Thank you Chasidy documented in this encounter Plan of Treatment Upcoming Encounters Date Type Department Care Team (Late st Contact Info) Description 06/07/2024 1:00 PM EST TH Visit (TeleHealth) [place] [address] Zachary Garcia MD [facility] [place] [address] 06/11/2024 9:00 AM EST Office [place] [address] Espinoaz, Caroline E, OT 07/10/2024 8:00 AM EST Office [place] [address] Espinoza, Caroline E, OT 07/24/2024 10:00 AM EST Office [place] [address] Espinoza, Caroline E, OT 08/07/2024 10:00 AM EST Office [place] [address] Espinoza, Caroline E, OT 08/21/2024 10:00 AM EST Office [place] [address] Espinoza, Caroline E, OT documented as of this encounter Visit Diagnoses Diagnosis Penile cancer Malignant neoplasm of penis, part unspecified documented in this encounter Care Teams Health Analytics Consultant Relationship Specialty Start Date End Date Shannan Arellano APRN [place] [address] [place] [address] PCP - General Family Medicine 02/03/23 documented as of this encounter
--- OUTSIDE RECORDS SUMMARY | 2024-06-04 17:30 | XMS_ITS | Encounter Summary ---
Author Organization [facility] Address [facility] [address] Care Team Providers Care Wedding Day Coordinator Name Role Phone Shannan Arellano APRN Primary Care Provider [phone] Encounter Details Date Type Department Care Team (Latest Contact Info) Description 08/25/2023 Travel Social History Tobacco Use Types Packs/Day Years Used Date Smoking Tobacco: Never Smokeless Tobacco: Never Alcohol Use Standard Drinks/Week Comments Yes 1 (1 standard drink = 0.6 oz pur e alcohol) [facility] Utilities Answer Date Recorded In the past 12 months has th e electric, gas, oil, or water [employer] threatened to shut off services in your [...] PM EST TH Visit (TeleHealth) [place] [address] Zachary Garcia MD [facility] [place] [address] 06/11/2024 9:00 AM EST Office Visit [place] [address] EspinozaTia de la torreyl E, OT 07/10/2024 8:00 AM EST Office Visit [place] [address] Espinoza, Caroline E, OT 07/24/2024 10:00 AM EST Office Visit [place] [address] Espinoza, Caroline E, OT 08/07/2024 10:00 AM EST Office Visit [place] [address] Espinoza, Caroline E, OT 08/21/2024 10:00 AM EST Office Visit [place] [address] Caroline Espinoza, OT documented as of this encounter Visit Diagnoses Not on filedocumented in this encounter Care Teams Wedding Day Coordinator Relationship Specialty Start Date End Date Shannan Arellano, [place] [address] PCP - General Family Medicine 02/03/23 documented as of this encounter
--- OUTSIDE RECORDS SUMMARY | 2024-06-04 17:30 | XMS_ITS | Encounter Summary ---
Author Organization [facility] Address [facility] [address] Care Team Providers Care Bull Driver Name Role Phone Shannan Arellano APRN Primary Care Provider [phone] Encounter Details Date Type Department Care Team (Latest Contact Info) Description 08/03/2023 Travel Social History Tobacco Use Types Packs/Day Years Used Date Smoking Tobacco: Never Smokeless Tobacco: Never Alcohol Use Standard Drinks/Week Comments Yes 1 (1 standard drink = 0.6 oz pur e alcohol) [facility] Utilities Answer Date Recorded In the past 12 months has th e electric, gas, oil, or water [employer] threatened to shut off services in [...] PM EST TH Visit (TeleHealth) [place] [address] Zachary Garcia MD [facility] [place] [address] 06/11/2024 9:00 AM EST Office Visit [place] [address] EspinozaTia de la torreyl E, OT 07/10/2024 8:00 AM EST Office Visit [place] [address] Espinoza, Caroline E, OT 07/24/2024 10:00 AM EST Office Visit [place] [address] Espinoza, Caroline E, OT 08/07/2024 10:00 AM EST Office Visit [place] [address] Espinoza, Caroline E, OT 08/21/2024 10:00 AM EST Office Visit [place] [address] Caroline Espinoza, OT documented as of this encounter Visit Diagnoses Not on filedocumented in this encounter Care Teams Bull Driver Relationship Specialty Start Date End Date Shannan Arellano, [place] [address] PCP - General Family Medicine 02/03/23 documented as of this encounter
--- OUTSIDE RECORDS SUMMARY | 2024-06-04 17:30 | XMS_ITS | Encounter Summary ---
[place] [address] Care Team Providers Care Pensionholder Information Clerk Name Role Phone Shannan Arellano GAYLE Primary Care Provider [phone] Reason for Visit * Diagnostic Test (Routine) - Closed Specialty Diagnoses / Procedures Referred By Marry kelsey Referred To Contact Radiology Diagnoses Penile cancer Procedures NM PET CT Skull Base to Mid-thigh Rolly Peters MD [address] [place] [address] [place] [address] [place] [address] Referral ID Status Reason Start Date Expiration Date V isits Requested Visits Authorized [id number] Closed Specialty Service Requested 07/28/2023 01/25/2025 1 1 Encounter Details Date Type Department Care Team (Latest Contact Info) Description 08/15/2023 8:56 AM EST - 08/15/2023 11:59 PM [facility] Hospital Encounter [place] [address] Rolly Peters MD [address] [place] [address] DR RADIATION ONCOLOGY [place], [place] [id number] Discharge Disposition: Home Social History Tobacco Use Types Packs/Day Years Used Date Smoking Tobacco: Never Smokeless Tobacco: Never Alcohol Use Standard Drinks/Week Comments Yes 1 (1 standard drink = 0.6 oz pur e alcohol) [facility] Utilities Answer Date Recorded In the past 12 months has [employer] electric, gas, oil, or water company threatened [...] Sig Dispensed Refills Start Date End Date acetaminophen (Tylenol) 325 mg tablet Take 650 mg by mouth as needed for Pain. Maybe once a week famotidine (Pepcid) 40 mg tablet Take 40 mg by mouth. 07/27/2023 fluticasone propionate (Flonase) 50 mcg/actuation [place], Suspension by Each Nare route daily. 07/27/2023 oxyCODONE (Roxicodone) 5 mg tablet Take 1 tablet by mouth every 4 hours as needed for Pain (for severe pain not controlled by tylenol/ibuprofen). 5 tablet 06/26/2023 apixaban (Eliquis) 5 mg tablet Take 1 tablet by mouth 2 times daily. 10/13/2023 levoFLOXacin (Levaquin) 500 mg tablet Take 1 tablet by mouth daily. 10 tablet 08/03/2023 08/16/2023 documented as of this encounter Plan of Treatment Upcoming Encounters Date Type Department Care Team (Late st Contact Info) Description 06/07/2024 1:00 PM EST TH Visit (TeleHealth) [place] [address] Zachary Garcia MD [facility] [place] [address] 06/11/2024 9:00 AM EST Office Visit [place] [address] Espinoza Caroline E, OT 07/10/2024 8:00 AM EST Office Visit [place] [address] Espinoza Caroline E, OT 07/24/2024 10:00 AM EST Office Visit [place] [address] Espinoza Caroline E, OT 08/07/2024 10:00 AM EST Office Visit [place] [address] Espinoza Caroline E, OT 08/21/2024 10:00 AM EST Office Visit [place] [address] Espinoza Caroline E, OT documented as of this encounter Procedures Procedure Name Priority Date/Time Associated Diagnosis Comments NM PET CT SKULL BASE TO MID-THIGH ([facility]) Routine 08/15/2023 10:20 AM EST Penile cancer documented in this encounter Results * NM PET CT Skull Base to Mid-thigh (08/15/2023 10:20 AM EST) Anatomical Region Laterality Modality Positron Emissio n Tomography (PET) Impressions 08/19/2023 10:53 AM EST 1. ??Metastases are no longer seen. 2. ??There are post-operative changes in the pelvis with fluid collections with peripheral FDG avidity. These may represent areas of inflammation or abscesses but there has been partial improvement since the previous study. Thank you for letting us participate in the care of this patient. ??If you are a health care provider and have any questions regarding this report, please contact the number below. ??For patients who have questions please contact the health lead caregiver that requested your imaging first. ? Electronically signed by: Josh Vitale MD, [facility] ([phone]), at 08/19/2023 10:53 AM Narrative 08/19/2023 10:53 AM EST EXAMINATION: NM PET CT STANDARD SKULL BASE TO MID-THIGH CLINICAL HISTORY: Genital cancer, assess treatment response C60.9, Malignant neoplasm of penis, unspecified TECHNIQUE: Following IV injection of 33-jrlpeq-5-deoxyglucose (FDG) a standard uptake of approximately 60 minutes, a noncontrast CT scan followed by a PET scan were acquired from the base of the skull to mid thighs. The noncontrast CT was used for anatomic localization and photon attenuation correction of the PET scan. Blood glucose level: 87 (mg/dL) FDG dose: 10.6 mCi COMPARISON: FDG PET/CT June 21, 2023 CT abdomen and pelvis July 19, 2023 FINDINGS: HEAD/NECK: Normal activity in all soft tissue regions of the neck and visualized lower head. CHEST: Normal activity in all soft tissue regions. There is a small amount of debris in the trachea. ABDOMEN/PELVIS: Post-operative changes from bilateral inguinal node dissections are present. This includes fluid collections with mildly FDG avid rims. There is a small amount of gas in the soft tissues of the left inguinal region. These fluid collections have decreased in size from that seen in the previous CT scan. The previously noted lymphadenopathy in the left external iliac and obturator spaces is no longer present. The previously seen hypermetabolic left inguinal lymph node is not definitively present but evaluation in this area is limited due to post-operative change. Diffuse hepatic steatosis. Unchanged right renal cyst. No new lymphadenopathy. Pelvic fluid collection. Scrotal edema. SKELETON/EXTREMITIES: No significant abnormal activity. There is mildly increased activity in the left humeral head associated with degenerative disease. Procedure Note Josh Vitale MD - 08/19/2023 EXAMINATION: NM PET CT STANDARD SKULL BASE TO MID-THIGH CLINICAL HISTORY: Genital cancer, assess treatment response C60.9, Malignant neoplasm of penis, unspecified TECHNIQUE: Following IV injection of 88-multpt-0-deoxyglucose (FDG) astandard uptake of approximately 60 minutes, a noncontrast CT scan followed by aPET scan were acquired from the base of the skull to mid thighs. The noncontrast CTwas used for anatomic localization and photon attenuation correction of thePET scan. Blood glucose level: 87 (mg/dL) FDG dose: 10.6 mCi COMPARISON: FDG PET/CT June 21, 2023 CT abdomen and pelvis July 19, 2023 FINDINGS: HEAD/NECK: Normal activity in all soft tissue regions of the neck and visualizedlower head. CHEST: Normal activity in all soft tissue regions. There is a small amount of debris in the trachea. ABDOMEN/PELVIS: Post-operative changes from bilateral inguinal node dissections arepresent. This includes fluid collections with mildly FDG avid rims. There is asmall amount of gas in the soft tissues of the left inguinal region. Thesefluid collections have decreased in size from that seen in the previous CT scan. The previously noted lymphadenopathy in the left external iliac andobturator spaces is no longer present. The previously seen hypermetabolic leftinguinal lymph node is not definitively present but evaluation in this area islimited due to post-operative change. Diffuse hepatic steatosis. Unchanged right renal cyst. No newlymphadenopathy. Pelvic fluid collection. Scrotal edema. SKELETON/EXTREMITIES: No significant abnormal activity. There is mildly increased activity inthe left humeral head associated with degenerative disease. IMPRESSION 1. Metastases are no longer seen. 2. There are post-operative changes in the pelvis with fluid collectionswith peripheral FDG avidity. These may represent areas of inflammation orabscesses but there has been partial improvement since the previous study. Thank you for letting us participate in the care of this patient. If youare a health care provider and have any questions regarding this report,please contact the number below. For patients who have questions please contactthe health lead caregiver that requested your imaging first. Rolly Peters MD IMG PET ORDERABLES documented in this encounter Visit Diagnoses Not on filedocumented in this encounter Care Teams Pensionholder Information Clerk Relationship Specialty Start Date End Date Shannan Arellano, COSTUME MAKER [place] [address] [place] [address] PCP - General Family Medicine 02/03/23 documented as of this encounter
--- OUTSIDE RECORDS SUMMARY | 2024-06-04 17:30 | XMS_ITS | Encounter Summary ---
Author Organization [facility] [place] [address] Care Team Providers Care Chiller Technician Name Role Phone Shannan Arellano APRN Primary Care Provider [phone] Encounter Details Date Type Department Care Team (Late st Contact Info) Description 09/08/2023 2:30 PM EDT Office Visit Radiation Oncology at [address] [phone] Rolly Peters MD [address] [place] [address] [place] [address] Penile cancer Social History Tobacco Use Types Packs/Day Years Used Date Smoking Tobacco: Never Smokeless Tobacco: Never Alcohol Use Standard Drinks/Week Comments Yes 1 (1 standard drink = 0.6 oz pur e alcohol) [facility] Utilities Answer Date Recorded In the [...] Sign Reading Time Taken Comments Blood Pressure 126/73 09/08/2023 2:06 PM EDT Pulse 81 09/08/2023 2:06 PM EDT Temperature 37 ??C (98.6 ??F) 09/08/2023 2:06 PM EDT Respiratory Rate 18 09/08/2023 2:06 PM EDT Oxygen Saturation 98% 09/08/2023 2:06 PM EDT Inhaled Oxygen Concentration - - Weight 75.4 kg (166 lb 3.2 oz) 09/08/2023 2:06 P M EDT Height 172.7 cm (5' 8) 09/08/2023 2:06 PM EDT Body Mass Index 25.27 09/08/2023 2:06 PM EDT documented in this encounter Progress Notes * Rolly Peters MD - 09/08/2023 2:30 PM EDT Images from the original note were not included. [facility] Medicine Radiation Oncology Radiation Oncology On-treatment [...] 54 Gy in 30 fractions Current Dose: 5.4 Gy in 3 fractions Corporate Strategy Intern [employer] from Current Plan (minimum 45 Gy isodose volume shown): Interval Clinical Course General: No changes since last seen. Started this week. GI: No n/v/d : No dysuria or increased frequency Skin: [...] confined to bed or chair Medications Medications 09/08/23 1411 Medication Sig Taking? prochlorperazine (Compazine) 10 mg tablet Take 1 [...] mouth. Yes fluticasone propionate (Flonase) 50 mcg/actuation [place], Suspension by Each Nare route daily. Yes lidocaine-prilocaine (EMLA) Cream Apply topically as needed. Patient not taking: Reported on 09/08/2023 oxyCODONE (Roxicodone) 5 mg tablet Take 1 tablet by mouth every 4 hours as needed for Pain (for severe pain not controlled by tylenol/ibuprofen). Patient not taking: Reported on 07/26/2023 Exam Vitals: BP 126/73 (Patient Position: Sitting) Pulse 81 Temp 37 ??C (98.6 ??F) (Temporal) Resp 18 Ht172.7 cm (5' 8) Wt 75.4 kg (166 lb 3.2 oz) SpO2 98% BMI 25.27 kg/m?? General: Appears well, in no distress Imaging/Labs Interval setup imaging has been checked and approved. See [employer] for details. Impression/Plan Tolerance to radiotherapy: Tolerating as anticipated. Continue as planned. Followup: RTC for on-treatment assessment next week. No orders of the defined types were placed in this encounter. National [facility] [place] (NCI) [facility] [employer] Commission on Cancer (ACS [place]) Accredited Cancer Program [employer] (ACR) Accredited Radiation Oncology Program documented in this encounter Plan of Treatment Upcoming Encounters Date Type Department Care Team (Late st Contact Info) Description 06/07/2024 1:00 PM EST TH Visit (TeleHealth) [place] [address] Zachary Garcia MD [facility] [address] 06/11/2024 9:00 AM EST Office Visit [place] [phone] Caroline Espinoza OT 07/10/2024 8:00 AM EST Office Visit [place] [phone] Espinoza Caroline E, OT 07/24/2024 10:00 AM EST Office Visit [place] [address] Espinoza, Caroline E, OT 08/07/2024 10:00 AM EST Office Visit [place] [address] Espinoza, Caroline E, OT 08/21/2024 10:00 AM EST Office Visit [place] [address] Espinoza, Caroline E, OT documented as of this encounter Visit Diagnoses Diagnosis Penile cancer Malignant neoplasm of penis, part unspecified documented in this encounter Care Teams Chiller Technician Relationship Specialty Start Date End Date Shannan Arellano, LIQUID COMP[place] [address] PCP - General Family Medicine 02/03/23 documented as of this encounter
--- OUTSIDE RECORDS SUMMARY | 2024-06-04 17:30 | XMS_ITS | Encounter Summary ---
Author Organization [facility] Address [facility] [place] [address] Care Team Providers Care Artists' Booking Representative Name Role Phone Shannan Arellano APRN Primary Care Provider [phone] Encounter Details Date Type Department Care Team (Latest Contact Info) Description 07/26/2023 Travel Social History Tobacco Use Types Packs/Day Years Used Date Smoking Tobacco: Never Smokeless Tobacco: Never Alcohol Use Standard Drinks/Week Comments Yes 1 (1 standard drink = 0.6 oz pur e alcohol) IPV Inpatient Questions Answer Date Recorded Does [...] PM EST TH Visit (TeleHealth) [place] [address] Zachary Garcia MD [facility] [place] [address] 06/11/2024 9:00 AM EST Office [place] [address] Caroline Espinoza OT 07/10/2024 8:00 AM EST Office [place] [address] Espinoza, Caroline E, OT 07/24/2024 10:00 AM EST Office [place] [address] Espinoza, Caroline E, OT 08/07/2024 10:00 AM EST Office [place] [address] Espinoza, Caroline E, OT 08/21/2024 10:00 AM EST Office [place] [address] Espinoza, Caroline E, OT documented as of this encounter Visit Diagnoses Not on filedocumented in this encounter Care Teams Artists' Booking Representative Relationship Specialty Start Date End Date Shannan Arellano, LEGAL RECORDS MANAGER [place] [place] [address] PCP - General Family Medicine 02/03/23 documented as of this encounter
--- OUTSIDE RECORDS SUMMARY | 2024-06-04 17:30 | XMS_ITS | Encounter Summary ---
Author Organization [facility] Address [facility] [address] Care Team Providers Care Distribution Dispatcher Name Role Phone Shannan Arellano APRN Primary Care Provider [phone] Encounter Details Date Type Department Care Team (Latest Contact Info) Description 08/23/2023 Travel Social History Tobacco Use Types Packs/Day Years Used Date Smoking Tobacco: Never Smokeless Tobacco: Never Alcohol Use Standard Drinks/Week Comments Yes 1 (1 standard drink = 0.6 oz pur e alcohol) [facility] Utilities Answer Date Recorded In the past 12 months has th e electric, gas, oil, or water [employer] threatened to shut off services in your [...] PM EST TH Visit (TeleHealth) [place] [address] Zachary Garcia MD [facility] [place] [address] 06/11/2024 9:00 AM EST Office [place] [address] EspinozaTia de la torreyl E, OT 07/10/2024 8:00 AM EST Office [place] [address] Espinoza, Caroline E, OT 07/24/2024 10:00 AM EST Office [place] [address] Espinoza, Caroline E, OT 08/07/2024 10:00 AM EST Office [place] [address] Espinoza, Caroline E, OT 08/21/2024 10:00 AM EST Office [place] [address] Caroline Espinoza, OT documented as of this encounter Visit Diagnoses Not on filedocumented in this encounter Care Teams Distribution Dispatcher Relationship Specialty Start Date End Date Shannan Arellano, AD OPERATIONS [place] [address] PCP - General Family Medicine 02/03/23 documented as of this encounter
--- OUTSIDE RECORDS SUMMARY | 2024-06-04 17:30 | XMS_ITS | Encounter Summary ---
Author Organization [facility] Address [facility] [place] [address] Care Team Providers Care Career Technical Supervisor Name Role Phone Shannan Arellano GAYLE Primary Care Provider [phone] Encounter Details Date Type Department Care Team (Late st Contact Info) Description 08/30/2023 Orders Only Hematology/Oncology at [address] [phone] Lucinda Cardenas APRN [facility] [place] [address] Social History Tobacco Use Types Packs/Day Years Used Date Smoking Tobacco: Never Smokeless Tobacco: Never Alcohol Use Standard Drinks/Week Comments Yes 1 (1 standard drink = 0.6 oz pur e alcohol) [facility] Utilities Answer Date Recorded In the [...] PM EST TH Visit (TeleHealth) [place] [address] Zachary Garcia MD [facility] [place] [address] 06/11/2024 9:00 AM EST Office [place] [address] Caroline Espinoza, OT 07/10/2024 8:00 AM EST Office [place] [address] Caroline Espinoza, OT 07/24/2024 10:00 AM EST Office [place] [address] Caroline Espinoza, OT 08/07/2024 10:00 AM EST Office [place] [address] Caroline Espinoza OT 08/21/2024 10:00 AM EST Office [place] [address] Caroline Espinoza OT documented as of this encounter Visit Diagnoses Not on filedocumented in this encounter Care Teams Career Technical Supervisor Relationship Specialty Start Date End Date Shannan Arellano, HEALTH AND SOCIAL CARE TEACHER [place] [address] PCP - General Family Medicine 02/03/23 documented as of this encounter
--- OUTSIDE RECORDS SUMMARY | 2024-06-04 17:30 | XMS_ITS | Encounter Summary ---
Author Organization [facility] Address [facility] [place] [address] Care Team Providers Care Wellness Coordinator Name Role Phone Shannan Arellano GAYLE Primary Care Provider [phone] Encounter Details Date Type Department Care Team (Late st Contact Info) Description 08/23/2023 9:00 AM EST Office Visit Hematology/Oncology at [address] [phone] Olivier Obrien MD [facility] [address] HEMATOLOGY [place] [address] Lucinda Cardenas APRN [facility] [place] [address] Penile cancer; Edema, unspecified type Social History Tobacco Use Types Packs/Day Years Used Date Smoking Tobacco: Never Smokeless Tobacco: Never Alcohol Use Standard Drinks/Week Comments Yes 1 (1 standard drink = 0.6 oz pur e alcohol) [facility] Utilities Answer Date Recorded In the past 12 months has [employer], gas, oil, or water [employer] threatened to shut off services in your [...] Sign Reading Time Taken Comments Blood Pressure 110/72 08/23/2023 9:02 AM EST Pulse 65 08/23/2023 9:02 AM EST Temperature 36.3 ??C (97.3 ??F) 08/23/2023 9:02 AM ES T Respiratory Rate 16 08/23/2023 9:02 AM EST Oxygen Saturation 97% 08/23/2023 9:02 AM EST Inhaled Oxygen Concentration - - Weight 75.2 kg (165 lb 12.8 oz) 08/23/2023 9:02 AM EST Height 172.7 cm (5' 7.99) 08/23/2023 9:02 AM ES T Body Mass Index 25.22 08/23/2023 9:02 AM EST documented in this encounter Progress Notes * Lucinda Cardenas APRN - 08/23/2023 9:00 AM EST Images from the original note [...] dissection Left lap pelvic node dissection Path: [id number] poorly differentiated penile cancer 4/10 Left inguinal and 3/13 Left pelvic nodes. 0/8 Right nodes. Margins Negative (to be confirmed at tumor board review) 07/19/23 readmitted s/p b/l inguinal surgical drains which was complicated by bilateral groin/thigh subcutaneous fluid collections s/p 10Fr drains (07/20 - cultures grew beta hemolytic streptococci & acinetobacter junii). S/p treatment with antibiotics. Drains have been removed. Interval history:Eduardo Contreras is in clinic for follow-up appointment on penile cancer and chemotherapy teach. Overall he is doing well. He has swelling to his groin, thight and scrotum and continues to wear compression and sees PT. He continues to follow with Dr. Garcia on his abscess/fluid retention after surgery. All drains were removed on August 11. He complains on cough with some phlegm which is chronic but getting worse now. No fever or chills. Denies any pain. The remainder of his review of systems reviewed and is negative. 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 The patient has been for 30 yearswith 6 children (between them) . The patient drinks occasionally Allergies: No Known Allergies Medications: Your Medications Accurate as of August 23, 2023 10:10 AM. If you have any questions, ask [...] mg Refills: 0 fluticasone propionate 50 mcg/actuation [place], Suspension Commonly known as: Flonase by Each Nare route daily. Refills: 0 oxyCODONE 5 mg tablet Commonly [...] Abdominal: Soft, NT, ND, BS+ Extremities: No distal edema noted. BP 110/72 (Patient Position: Sitting) Pulse 65 Temp 36.3 ??C (97.3 ??F) (Temporal) Resp 16 Ht 172.7 cm (5' 7.99) Wt 75.2 kg (165 lb 12.8 oz) SpO2 97% BMI 25.22 kg/m?? Pathology: 06/24/23 DIAGNOSIS A - Penile foreskin, excision: No evidence of high-grade dysplasia or malignancy. 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 C - Additional [...] lymph nodes (3/13). CR-0 Electronically signed by: Ignacio Tejada MD Verified: 07/06/2023 11:48 Pathologist Performed at: -[facility] Dept. of Pathology, [place] [address] Test Cell Technician: Corbin Doll MD, AP, [facility] Certificate: [id number] SYNOPTIC Specimen Procedure: Wide local excision of [...] Block(s): B3, B4, B6 Normal Block(s): N/A [facility] 2022 Q3 Release DISCUSSION The infiltrating carcinoma [...] clear cell, lymphoepithelioma-like, or medullary subtypes). Labs: 08/09/2023 WBC 6.96, hemoglobin 13.2, platelet count [...] small size and location. Assessment and Plan: Diagnosis:[id number] poorly diff penile cancer sp local excision and bilateral node dissection. LN / positive, 4/10 left inguinal lymph nodes with negative margins left 3/13 pelvic nodes positive,ENEneg Treatment: 06/24/23 Local excision and penile glans reconstruction/neomeatus/ Bilateral Groin dissection Left lap pelvic node dissection Pathology: specimen showing poorly differentiated squamous cell [...] cancer with relatively high rate of success. We discussed side effects of chemotherapy which include but not limited to nausea, vomiting, fatigue, low blood counts requiring transfusion, allergic reaction, diarrhea, mouth sores, pain, infectionincluding life-threatening infection. All questions were answered to patient satisfaction. Will wait for assessment by our radiation oncologist Dr. Peters and discuss radiosensitizing chemotherapy Will contact to urologist Dr. Garcia to discuss timing of concurrent chemoradiation. He is currently on antibiotics for infection. If decision to proceed with Mitomycin-C and 5-FU made he will need Mediport placement. I will tentatively schedule him in 4 weeks with blood work and chemotherapy teaching by TRACK BROOM OPERATOR. 08/16/2023 PET scan: Report is pending, personally [...] Sim. Mediport to be placed this week. We again discussed potential side effects of chemotherapy including but not limited to nausea, vomiting, fatigue, low blood counts requiring transfusion, allergic reaction, diarrhea, mouth sores, pain, infection including life- threatening infection. All questions were answered to patient satisfaction. His and daughter were present for our visit today. #CINV: Has Rx for compazine PRN #Post op lymphedema and scrotal swelling: continues with compression and follows with PT. #chronic congestion: present prior to diagnosis and unchanged. No signs of infection Plan: F/u with Dr. Garcia and Dr. Peters Mediport placement this week Start chemotherapy on the first day of radiation. No additional labs prior to treatment Visit within a week after starting chemotherapy Lucinda Cardenas APRN The plan was discussed with the patient in details. We had a detailed discussion surrounding chemotherapy, potential side effects, his schedule and plan of care. All questions were answered to patient's satisfaction. 60 minutes were spent on date of visit, including non-face to face time. documented in this encounter Plan of Treatment Upcoming Encounters Date Type Department Care Team (Late st Contact Info) Description 06/07/2024 1:00 PM EST TH Visit (TeleHealth) [place] [address] Zachary Garcia MD [facility] [place] [address] 06/11/2024 9:00 AM EST Office Visit Occupational [place] [address] Espinoza, Carolnie E, OT 07/10/2024 8:00 AM EST Office Visit Occupational [place] [address] Espinoza, Caroline E, OT 07/24/2024 10:00 AM EST Office Visit Occupational [place] [address] Espinoza, Caroline E, OT 08/07/2024 10:00 AM EST Office Visit Occupational [place] [address] Espinoza, Caroline E, OT 08/21/2024 10:00 AM EST Office Visit Occupational [place] [address] Espinoza, Caroline E, OT documented as of this encounter Visit Diagnoses Diagnosis Penile cancer Malignant neoplasm of penis, part unspecified Edema, unspecified type documented in this encounter Care Teams Wellness Coordinator Relationship Specialty Start Date End Date Shannan Arellano, SPINNING AND WINDING SUPERVISOR [place] [address] [place] [address] PCP - General Family Medicine 02/03/23 documented as of this encounter
--- OUTSIDE RECORDS SUMMARY | 2024-06-04 17:30 | XMS_ITS | Encounter Summary ---
Author Organization [facility] Address [facility] [address] Care Team Providers Care Escrow Manager Name Role Phone Shannan Arellano APRN Primary Care Provider [phone] Encounter Details Date Type Department Care Team (Latest Contact Info) Description 09/12/2023 Travel Social History Tobacco Use Types Packs/Day Years Used Date Smoking Tobacco: Never Smokeless Tobacco: Never Alcohol Use Standard Drinks/Week Comments Yes 1 (1 standard drink = 0.6 oz pur e alcohol) [facility] Utilities Answer Date Recorded In the past 12 months has th e electric, gas, oil, or water [email or web address] threatened to shut off services in your [...] place to sleep or slept in a jail (including now)? No 07/28/2023 IPV Inpatient Questions [...] PM EST TH Visit (TeleHealth) [place] [address] Zachary Garcia MD [facility] [address] 06/11/2024 9:00 AM EST Office Visit [place] [address] EspinozaTia de la torreyl E, OT 07/10/2024 8:00 AM EST Office Visit [place] [address] Espinoza, Caroline E, OT 07/24/2024 10:00 AM EST Office Visit [place] [address] Espinoza, Caroline E, OT 08/07/2024 10:00 AM EST Office Visit [place] [address] Espinoza, Caroline E, OT 08/21/2024 10:00 AM EST Office Visit [place] [address] Caroline Espinoza, OT documented as of this encounter Visit Diagnoses Not on filedocumented in this encounter Care Teams Escrow Manager Relationship Specialty Start Date End Date Shannan Arellano, PHOTOFLASH [place] [address] PCP - General Family Medicine 02/03/23 documented as of this encounter
--- OUTSIDE RECORDS SUMMARY | 2024-06-04 17:30 | XMS_ITS | Encounter Summary ---
Author Organization [facility] Address [facility] [place] [address] Care Team Providers Care Plasma Cutting Machine Operator Name Role Phone Shannan Arellano APRN Primary Care Provider [phone] Encounter Details Date Type Department Care Team (Late st Contact Info) Description 08/03/2023 9:20 AM EST Office Visit Urology at [facility] [place] [phone] Shelbie Garcia MD [facility] [place] [address] Penis cancer Social History Tobacco Use Types Packs/Day Years Used Date Smoking Tobacco: Never Smokeless Tobacco: Never Alcohol Use Standard Drinks/Week Comments Yes 1 (1 standard drink = 0.6 oz pur e alcohol) [facility] Utilities Answer Date Recorded In [...] place to sleep or slept in a alf (including now)? No 07/28/2023 DH IPV Inpatient [...] Sign Reading Time Taken Comments Blood Pressure 120/85 08/03/2023 9:16 AM EST Pulse 91 08/03/2023 9:16 AM EST Temperature - - Respiratory Rate - - Oxygen Saturation - - Inhaled Oxygen Concentration - - Weight - - Height - - Body Mass Index - - documented in this encounter Progress Notes * Shelbie Garcia MD - 08/03/2023 9:20 AM EST Images from the original note were not included. Patient Name: Ebony Contreras Date of Service: 08/03/2023 Primary Care Provider: Shannan Arellano APRN Reason [...] dissection Left lap pelvic node dissection Path: [id number] poorly differentiated penile cancer 4/10 Left inguinal and 3/13 Left pelvic nodes. 0/8 Right nodes. Margins Negative (to be confirmed at tumor board review) [facility] Department of Pathology and Laboratory Medicine Director Of Programming: Corbin Doll MD, FCAP CLIA Certificate: [id number] Name: EBONY CONTRERAS Provider: SHELBIE GARCIA Client: [facility] /Age/Sex: 1950 73 years Male Location: [facility]; 0210; A The signing pathologist has (i) examined the relevant preparation(s) for the specimen(s); and (ii) rendered or confirmed the diagnosis(es). [facility] Printed: 07/06/2023 11:48 EST Dept. of Pathology and Laboratory Medicine [facility] [place] [address] Pathology Report Collected: 06/24/2023 12:57 EST Received: 06/24/2023 13:23 EST Surgical Pathology DIAGNOSIS A - Penile foreskin, excision: No evidence of high-grade dysplasia or malignancy. 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 C - Additional [...] [place] Verified: 07/06/2023 11:48 Pathologist Performed at: -[facility] Dept. of Pathology, [place] [address] Director Of Programming: Corbin Doll MD, AP, [facility] Certificate: [id number] SYNOPTIC Specimen Procedure: Wide local excision of [...] Block(s): B3, B4, B6 Normal Block(s): N/A [facility] 2022 Q3 Release DISCUSSION The infiltrating [...] new - 55mL R#4 new - 15mL 08/03/2023 No changes. He saw Med Onc and saw Rad Onc. L#1 original - 95mL R#2 original 120mL L#3 new - 5mL R#4 new - 0 mL All drains removed. Wearing his stockings and biker shorts Past Medical History: None Past Surgical History: None Medications: Reviewed Allergies: Reviewed Family History: There is no family history of Penile issues. Father ASCVD. 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 The patient has been for 30 years [...] with treatment of the surgical bed. Impression: [id number] poorly diff penile cancer sp local excision and bilateral node dissection. With negative margins 3/13 pelvic nodes positive. Doing well after re-admission for collections not draining and SSI Plan: Continue stockings Bike Shorts Continue Levaquin 500mg daily x 5 more days Continue Eliquis All drains removed. 1 week All questions were answered documented in this encounter Plan of Treatment Upcoming Encounters Date Type Department Care Team (Late st Contact Info) Description 06/07/2024 1:00 PM EST TH Visit (TeleHealth) [place] [address] Shelbie Garcia MD [facility] [place] [address] 06/11/2024 9:00 AM EST Office [place] [address] Caroline Espinoza, OT 07/10/2024 8:00 AM EST Office [place] [address] Caroline Espinoza, OT 07/24/2024 10:00 AM EST Office [place] [address] Caroline Espinoza, OT 08/07/2024 10:00 AM EST Office [place] [address] Caroline Espinoza OT 08/21/2024 10:00 AM EST Office [place] [address] Caroline Espinoza OT documented as of this encounter Visit Diagnoses Diagnosis Penis cancer Malignant neoplasm of penis, part unspecified documented in this encounter Care Teams Plasma Cutting Machine Operator Relationship Specialty Start Date End Date Shannan Arellano, CASH APPLICATIONS MANAGER [place] [address] PCP - General Family Medicine 02/03/23 documented as of this encounter
--- OUTSIDE RECORDS SUMMARY | 2024-06-04 17:30 | XMS_ITS | Encounter Summary ---
Author Organization [facility] Address [facility] [address] Care Team Providers Care Human Resources Intern Name Role Phone Shannan Arellano APRN Primary Care Provider [phone] Encounter Details Date Type Department Care Team (Latest Contact Info) Description 08/11/2023 Travel Social History Tobacco Use Types Packs/Day Years Used Date Smoking Tobacco: Never Smokeless Tobacco: Never Alcohol Use Standard Drinks/Week Comments Yes 1 (1 standard drink = 0.6 oz pur e alcohol) [facility] Utilities Answer Date Recorded In the past 12 months has th e electric, gas, oil, or water [employer] threatened to shut off services in your [...] in a detention (including now)? No 07/28/2023 IPV Inpatient Questions [...] PM EST TH Visit (TeleHealth) [place] [address] Zachary Garcia MD [facility] [place] [address] 06/11/2024 9:00 AM EST Office [place] [address] EspinozaiTa de la torreyl E, OT 07/10/2024 8:00 AM EST Office [place] [address] Espinoza, Caroline E, OT 07/24/2024 10:00 AM EST Office [place] [address] Espinoza, Caroline E, OT 08/07/2024 10:00 AM EST Office [place] [address] Espinoza, Caroline E, OT 08/21/2024 10:00 AM EST Office Visit [place] [address] Caroline Espinoza, OT documented as of this encounter Visit Diagnoses Not on filedocumented in this encounter Care Teams Human Resources Intern Relationship Specialty Start Date End Date Shannan Arellano, REVENUE CYCLE [place] [address] PCP - General Family Medicine 02/03/23 documented as of this encounter
--- OUTSIDE RECORDS SUMMARY | 2024-06-04 17:30 | XMS_ITS | Encounter Summary ---
Author Organization [facility] [place] [address] Care Team Providers Care Artificial Stone Setter Name Role Phone Shannan Arellano GAYLE Primary Care Provider [phone] Reason for Visit * Consultation (Routine) - Closed Specialty Diagnoses / Procedures Referred By Marry kelsey Referred To Contact Radiation Oncology Diagnoses Penile cancer Procedures Simulation for Radiation Therapy Planning Rolly Peters MD [address] [place] [address] [place] [address] [facility] Rad Onc Office [address] [place] [phone] Referral ID Status Reason Start Date Expiration Date V isits Requested Visits Authorized [id number] Closed Consult, Test & Treat 08/24/2023 11/24/2023 31 31 Encounter Details Date Type Department Care Team (Late st Contact Info) Description 08/24/2023 10:00 AM EST Ancillary Appointment Radiation Oncology at [address] [phone] Rolly Peters MD [address] [place] [address] [place] [address] Penile cancer Social History Tobacco Use Types Packs/Day Years Used Date Smoking Tobacco: Never Smokeless Tobacco: Never Alcohol Use Standard Drinks/Week Comments Yes 1 (1 standard drink = 0.6 oz pur e alcohol) [facility] Utilities Answer Date Recorded In the past 12 months has [employer] electric, gas, oil, or water company threatened [...] on file documented as of this encounter Patient Instructions * Patient Instructions* Katerina Ochoa RN - 08/24/2023 10:00 AM EST General instructions for Radiation therapy Radiation Oncology Team Radiation Oncologist -The doctor who will direct all aspects of your radiation treatments Nurse Practitioner - They assist your doctor in treating your side effects and with follow up appointments. Registered Nurse - They tashia you in learining about you radaiton treatments, , and things you can do to help manage the side effects. Reed Man - They take the doctors radiation prescription and customize it into doses (or days of treatments) specific for you. Physicist - They make sure all the machines are operating correctly and double check calculations for your treatment. Radiation Technologists - They operate the machines which deliver your radiation. You see them daily and they schedule your treatments. Simulation CT/ Planning Session- Your first step after deciding to start radiation treatments is done on a special CT scanner in radiation oncolcgy. The images obtained are used to plan your treatments. This may be scheduled the same day you meet your doctor or in a separate visit. This usually takes between 30 minutes to one hour. You may need an IV for contrast. If so our nurse will let you know that day along with any other special instructions. During this visit we may franc Your skin with a tiny ???tattoos?? , take pictures or make special molds or masks to help us place you in the exact treatment position every day. After this session it takes up to two weeks for your plan to be developed and checked by your doctor, the dosimetrists and the physicist. Skin Care - Your nurse/physician will provide you with the necessary creams and supplies as you need them during your treatments. Please make sure to keep the treatment area clean and dry. Be sure to notice if your clothing rubs or digs into the treatment area and try to wear clothes which are less abrasive, like cotton or loose fitting. Do not use harsh soaps, ointments, deodorants or tapes in the treatment area unless directed by your nurse or doctor. Keep the treatment area out of the sun during treatments. General precautions- DO NOT USE heating pads, hot water bottles, hot poultices, heat lamps, heat in any form, or ice packs to the area of your body being treated. It is common to start feeling fatigue after a few weeks of being treated. You can help minimize this by getting regular exercise or walking and getting plenty of rest. In general a well balanced diet is recommended. The radiator mechanic and nurse will inform you of any special diet requirements. Avoid shaving the treatment area with a razor. If you must shave use an electric razor. Our Contact numbers Section of Radiation Oncology Our normal business hours are: Tuesday - Tuesday: 8:00 AM to 5:[address] [facility]: [facility]: If you have questions about your radiation appointments please ask to speak to one of our secretarystaff. If you have questions for a nurse/doctor about radiation treatments, radiation side effects or you are not feeling well it is best to call early in the day. This allows a nurse to return your call by5 PM the same day. If you call after 4 PM, a nurse will return your call by 5 PM the following day unless it is emergent. If you experience any of the following you need to seek emergency care immediately by calling 911 1. Sudden and unexpected breathing difficulty without any exertion 2. Sudden onset of chest pain 3. Sudden onset of severe pain or uncontrolled pain 4. Sudden onset of severe weakness and/or unable to ambulate 5. Sudden new onset of a seizure 6. Fall resulting in injury A Radiation Oncology doctor is traditional chinese herbalist after our normal hours and on weekends. To call for urgent medical issues from radiation treatments that can not wait until normal businesshours: Call for either location and have the picked edge sewing machine operator page the Radiation Oncologist traditional chinese herbalist. documented in this encounter Progress Notes * Katerina Ochoa RN - 08/24/2023 10:00 AM EST Radiation Oncology Simulation Note Eduardo Contreras is here for radiation planning , undergoing a simulation to the pelvis for penile cancer treatment . Usual radiation oncology routines and purpose of on treatment visits were explained. Anticipatory Guidance: per AVS Barriers to Treatment/ Compliance issues identified: none per NPW Patient confirms they have no difficulties lying flat. pre- medication plan made: none Referrals: VIBRATION TECHNICIAN per protocol * Rolly Peters MD - 08/24/2023 10:00 AM EST Simulation Note for External Beam Radiation Treatment Planning [facility] Eduardo Contreras is a 73 y.o. year old male with penile cancer who was simulated for adjuvant radiotherapy to the pelvis and groins today. No changes were made from the plan as documented in the original simulation order and instructions. Briefly, he was immobilized using a vacloc bag and his penis was immobilized out of the treatment field. A 2.5mm slice thickness CT scan of the patient's pelvis and groin was then obtained. This scanwas performed to delineate both target volumes and organs/structures at risk. These images will be used to create a customized treatment plan employing multileaf collimators and beams-eye view to treat the target to prescription dose while maximally sparing organs at risk, with the overall goal of maximizing the likelihood of a favorable disease response while minimizing the likelihood of any short term side effects or long term care pharmacist complications of therapy. I anticipate his prescription dose will be 54Gy to the surgical bed, delivered in daily 1.8 Gy fractions over the course of 6 weeks. Anticipate therapy to begin within the next 10 days. Furthermore, I anticipate this patient will require IMRT or VMAT treatment planning and delivery asthe critical treatment volume of interest (in this case, tumor bed) is/are irregular and in close proximity to sensitive structures which must be protected (including his external genitalia, bowel, femurs, and bladder). The patient tolerated this procedure well, and was provided instructions with regard to upcoming appointments. documented in this encounter Plan of Treatment Upcoming Encounters Date Type Department Care Team (Late st Contact Info) Description 06/07/2024 1:00 PM EST TH Visit (TeleHealth) [place] [address] Zachary Garcia MD [facility] [place] [address] 06/11/2024 9:00 AM EST Office [place] [address] Caroline Espinoza OT 07/10/2024 8:00 AM EST Office [place] [address] Caroline Espinoza OT 07/24/2024 10:00 AM EST Office [place] [address] Caroline Espinoza, OT 08/07/2024 10:00 AM EST Office [place] [address] EspinozaCaroline de la torre E, OT 08/21/2024 10:00 AM EST Office [place] [address] EspinozaCaroline de la torre, OT documented as of this encounter Visit Diagnoses Diagnosis Penile cancer Malignant neoplasm of penis, part unspecified documented in this encounter Care Teams Artificial Stone Setter Relationship Specialty Start Date End Date Shannan Arellano, METAPHYSICIAN [place] [address] [place] [address] PCP - General Family Medicine 02/03/23 documented as of this encounter
--- OUTSIDE RECORDS SUMMARY | 2024-06-04 17:30 | XMS_ITS | Encounter Summary ---
Author Organization [facility] Address [facility] [place] [address] Care Team Providers Care Construction Project Engineer Name Role Phone Shannan Arellano GAYLE Primary Care Provider [phone] Encounter Details Date Type Department Care Team (Late st Contact Info) Description 08/24/2023 Orders Only Hematology/Oncology at [address] [phone] Lucinda Cardenas APRN [facility] [place] [address] Social History Tobacco Use Types Packs/Day Years Used Date Smoking Tobacco: Never Smokeless Tobacco: Never Alcohol Use Standard Drinks/Week Comments Yes 1 (1 standard drink = 0.6 oz pur e alcohol) [facility] Utilities Answer Date Recorded In the past [...] PM EST TH Visit (TeleHealth) [place] [address] Zachary Garcia MD [facility] [place] [address] 06/11/2024 9:00 AM EST Office [place] [address] Caroline Espinoza, OT 07/10/2024 8:00 AM EST Office [place] [address] Caroline Espinoza, OT 07/24/2024 10:00 AM EST Office [place] [address] Caroline Espinoza, OT 08/07/2024 10:00 AM EST Office [place] [address] Caroline Espinoza OT 08/21/2024 10:00 AM EST Office [place] [address] Caroline Espinoza OT documented as of this encounter Visit Diagnoses Not on filedocumented in this encounter Care Teams Construction Project Engineer Relationship Specialty Start Date End Date Shannan Arellano, TAXI CAB DRIVER [place] [place] [address] PCP - General Family Medicine 02/03/23 documented as of this encounter
--- OUTSIDE RECORDS SUMMARY | 2024-06-04 17:30 | XMS_ITS | Encounter Summary ---
Author Organization [facility] Address [facility] [place] [address] Care Team Providers Care Clinical Psychologist Private Practice Name Role Phone Shannan Arellano APRN Primary Care Provider [phone] Encounter Details Date Type Department Care Team (Latest Contact Info) Description 08/15/2023 Travel Social History Tobacco Use Types Packs/Day Years Used Date Smoking Tobacco: Never Smokeless Tobacco: Never Alcohol Use Standard Drinks/Week Comments Yes 1 (1 standard drink = 0.6 oz pur e alcohol) [facility] Utilities Answer Date Recorded In the past 12 months has th e electric, gas, oil, or water [employer] threatened to shut off services in your [...] PM EST TH Visit (TeleHealth) [place] [address] Zachary Garcia MD [facility] [address] 06/11/2024 9:00 AM EST Office [place] [address] EspinozaTia de la torreyl E, OT 07/10/2024 8:00 AM EST Office [place] [address] Espinoza, Caroline E, OT 07/24/2024 10:00 AM EST Office [place] [address] Espinoza, Caroline E, OT 08/07/2024 10:00 AM EST Office [place] [address] Espinoza, Caroline E, OT 08/21/2024 10:00 AM EST Office [place] [address] Caroline Espinoza, OT documented as of this encounter Visit Diagnoses Not on filedocumented in this encounter Care Teams Clinical Psychologist Private Practice Relationship Specialty Start Date End Date Shannan Arellano, [place] [address] PCP - General Family Medicine 02/03/23 documented as of this encounter
--- OUTSIDE RECORDS SUMMARY | 2024-06-04 17:30 | XMS_ITS | Encounter Summary ---
Author Organization [facility] Address [facility] [place] [address] Care Team Providers Care Mail Handler Equipment Operator Name Role Phone Shannan Arellano APRN Primary Care Provider [phone] Encounter Details Date Type Department Care Team (Late st Contact Info) Description 08/24/2023 Notes Only Radiation Oncology at [address] [phone] Aurora Solomon, LAP MACHINE TENDER OFFICE OF CARE MANAGEMENT Social History Tobacco Use Types Packs/Day Years [...] as of this encounter Progress Notes * Aurora Solomon, LAP MACHINE TENDER - 08/24/2023 11:28 AM EST Reason for Referral: Brief assessment of social and emotional needs. Met with Eduardo and his after his sim today to introduce myself and role of social secretary to assess/address barriers to getting to and through treatments; address support needs and connect with community services and resourcesas needed. Family/Social Supports: Eduardo identified his and a daughter as his primary supports. Living Situation/Daily Activities/Transportation: Eduardo indicated he manages his daily chores and activities. He is expecting 6-7 weeks of concurrent chemo/RT treatments. He does not expect any issues with transportation. 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 He and his have income and they are able to manage their financial obligations. He has Medicare and [facility]. He did not have any concerns re finances or insurance. Advance Directives: Eduardo has not completed his advance directive. His indicated they have theinformation at home. Offered assistance if interested in completing. Utilization of Community Resources: None at this time. Adjustment to Illness/Mental Health Concerns: eduardo indicated he is ready to take the next step andget his treatments going. Offered support. Identified Needs: Nothing specific at this time. Referrals: Not at this time. Social Work Interventions: Brief assessment Supportive Counseling Advance care planning Plan: Informed pt of LAP MACHINE TENDER availability and contact information. Will follow to assess/address psychosocial needs. SARY Rose, JOB LITHOGRAPHER, OSW-C Account Specialist [facility] documented in this encounter Plan of Treatment Upcoming Encounters Date Type Department Care Team (Late st Contact Info) Description 06/07/2024 1:00 PM EST TH Visit (TeleHealth) [place] [address] Zachary Garcia MD [facility] [place] [address] 06/11/2024 9:00 AM EST Office [place] [address] Espinoza, Caroline E, OT 07/10/2024 8:00 AM EST Office [place] [address] Espinoza, Caroline E, OT 07/24/2024 10:00 AM EST Office [place] [address] Espinoza, Caroline E, OT 08/07/2024 10:00 AM EST Office [place] [address] Espinoza, Caroline E, OT 08/21/2024 10:00 AM EST Office [place] [address] Espinoza, Caroline E, OT documented as of this encounter Visit Diagnoses Not on filedocumented in this encounter Care Teams Mail Handler Equipment Operator Relationship Specialty Start Date End Date Shannan [place] [address] PCP - General Family Medicine 02/03/23 documented as of this encounter
--- OUTSIDE RECORDS SUMMARY | 2024-06-04 17:30 | XMS_ITS | Encounter Summary ---
Author Organization [facility] Address [facility] [address] Care Team Providers Care Sheet Rock Sander Name Role Phone Shannan Arellano GAYLE Primary Care Provider [phone] Reason for Visit * Physical Therapy (Routine) - Authorized Specialty Diagnoses / Procedures Referred By Marry kelsey Referred To Contact Physical Therapy Diagnoses Penile cancer Zachary Garcia MD [facility] [place] [address] [facility] [place] [address] Referral ID Status Reason Start Date Expiration Date Visits Requested Visits Authorized [id number] Authorized Evaluate and Treat 05/17/2023 06/15/2024 100 100 Encounter Details Date Type Department Care Team (Late st Contact Info) Description 08/04/2023 9:00 AM EST Office Visit [place] [address] Espinoza, Caroline E, OT Edema, unspecified type Social History Tobacco Use [...] - Therapy - Caroline Espinoza OT - 08/04/2023 9:00 AM ESTSummary: OT/CLT LE LYMPHEDEMA TREATMENT NOTE OT/CLT LE LYMPHEDEMA TREATMENT NOTE Date of Exam/First treatment: 05/31/23 Date of Onset 03/18/23 Referring Provider: Zachary Garcia MD Diagnosis and pertinent co-morbidities: Penile CA Primary Insurance: Payor: MEDICARE / Plan: MEDICARE PART A & B / Product Type: *No Product type* / Medicare Cert Period: 05/31/23- 08/29/23 Penile CA No past medical history on file. CURRENT HISTORY: Eduardo Contreras is a 73 y.o. male with h/o penile CA. Referred by DR. Garcia. Patient presents today with concerns of swelling/lymphedema with upcoming node resection. Educationdeficits regarding lymphedema risk post lymph node dissection and if radiation is planned. Sitting for compression wear for post op. 06/30/23 local excision of distal urethra with hypospadiac meatus, bilateral groin dissection. MRI show suspicious LEFT inguinal lymph nodes. Awaiting pathology report Pending discussion at tumor board Cystoscopy and biopsy on 05/09/23 Surgery on 06/24/22 for inguinal dissection and penile tumor resection. Patient has two drains in still he states that they are annoying. Patient continues on prophylactic ABX Plan for adjuvant chemo or radiation pending. Spouse states she feels like patient may have overdone this weekend out moving wood piles and cutting firewood. Patient at ED 07/19/23 after last appointment with Treatment Diagnosis:Penile CA with Left inguinal lymph node resection. PRECAUTIONS: Reviewed risks for lymphedema . Risks related to radiation fibrosis. SOCIAL SUPPORTS: Patient lives with spouse, 6 children 30 years. Does not smoke. And drinksrarely ENVIRONMENT: I at home with out DME PATIENT STATED GOAL: I want to get back to work and doing what I like to do. CURRENT ACTIVITY LEVEL: Active lifestyle and work. 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 PAIN: Occasional knee and back pain from OA reported. No pain at incision. FUNCTIONAL LIMITATIONS: On a difficulty scale with [...] 05/31/23 Left 05/31/23 RIGHT 07/07/23 LEFT 07/07/23 Mid foot 22.8 23.2 23.3 23.1 Ankle 25.4 24 22.8 22.6 Calf 33 35.3 35 35.3 D 32.3 31.8 32.5 32 Knee 35.7 35.5 35.7 36.2 Knee +12 45.3 46.8 41.5 45.6 Upper thigh G 55 53.4 52.3 57 A-D Length 38 A-G Length 75 32 waist JUZO 20-30 MMhG compression short size II knee high Compression bike short. Wearing during the day. Patient given information for Bioflect Orly for daily compression . Patient has not has any swelling below the knee Recs today for scrotal swell pad. Patient has been having mild increase in scrotal swelling which has been waxing and waning. 7) Occasional urinary dribbling. Utilizing pads a needed. CLINICAL EVALUATION AND DIAGNOSIS: Penile Ca with pending Inguinal dissection and CA resection. Patient would benefit from skilled OT/CLT services to address MLD Education and training for self MLD as needed for edema compression wear including instruction on donning and doffing for post op edema management Education and training for adjunct fluid management as needed post op techniques which may include gu ayleen paddle, rolling, elevation, dry brushing, vibration plate Education and training for edema management, lymphedema risk and risk reduction. Clinical presentation: Stable Evolving Unstable X Notes: The patient's rehabilitation potential is good for stated goals. GOALS: Therapy Short Term Goals 4 weeks Patient will be mod i with self MLD techniques including deep diaphragmatic breathing and deep abdominal lymph node drainage as indicated for fluid management 2. Patient will be I with donning/doffing appropriate compression wear for post op fluid management 4. Patient will demonstrate good understnading of risks of lymphedema given plans for inguinal noderemoval and possible post surgical radiation treatment. 5. Patient will be I with utilization of adjunct fluid management techniques: Rolling. Muscle pump HEP. elevation Therapy Fpc Goals 12 weeks 1. Patient will demonstrate ability to maintain reduction in swelling utilizing all techniques taught. THERAPEUTIC INTERVENTIONS UTILIZED TODAY: Review education and training for MLD sequence including deep diaphragmatic breathing and deep abdominal lymph node drainage. Full MLD sequence. Edema responds well with increase in comfort reported by patient. PLAN: OT/CLT SERVICES 2x/ month x 2 months. Adding or tapering visits as needed. Treatment: manual lymphatic drainage compression bandaging if indicated Exercise- muscle pump HEP teaching self care garment fitting- Boiflext Orly and Jobst compression shorts. Patient alternates. Patient has information on ordering scrotal swell pack to minimize scrotal edema. Adjunct fluid management techniques Charges Minutes OT EVAL LOW (33356) OT EVAL MOD (65551) OT EVAL HIGH (35185) MANUAL THERAPY(83022) 30 SELF CARE/HOME MANAGEMENT (84125) 30 THERAPEUTIC/FUNCTIONAL ACTIVITIES(49757) THEREX NEUROMUSCULAR BINA(33058) THEREX: STRENGTH ROM (09291) Caroline Espinoza OT/CLT documented in this encounter Plan of Treatment Upcoming Encounters Date Type Department Care Team (Late st Contact Info) Description 06/07/2024 1:00 PM EST TH Visit (TeleHealth) Urology at [place] [phone] Zachary Garcia MD [facility] [place] [address] 06/11/2024 9:00 AM EST Office Visit [place] [address] Caroline Espinoza, OT 07/10/2024 8:00 AM EST Office Visit [place] [address] Caroline Espinoza, OT 07/24/2024 10:00 AM EST Office Visit [place] [address] Caroline Espinoza, OT 08/07/2024 10:00 AM EST Office Visit [place] [address] Caroline Espinoza, OT 08/21/2024 10:00 AM EST Office Visit [place] [address] Caroline Espinoza, OT documented as of this encounter Visit Diagnoses Diagnosis Edema, unspecified type documented in this encounter Care Teams Sheet Rock Sander Relationship Specialty Start Date End Date Shannan Arellano, [place] [address] PCP - General Family Medicine 02/03/23 documented as of this encounter
--- OUTSIDE RECORDS SUMMARY | 2024-06-04 17:30 | XMS_ITS | Encounter Summary ---
Author Organization [facility] Address [facility] [place] [address] Care Team Providers Care Shift Leader Name Role Phone Shannan Arellano APRN Primary Care Provider [phone] Encounter Details Date Type Department Care Team (Latest Contact Info) Description 09/14/2023 Travel Social History Tobacco Use Types Packs/Day Years Used Date Smoking Tobacco: Never Smokeless Tobacco: Never Alcohol Use Standard Drinks/Week Comments Yes 1 (1 standard drink = 0.6 oz pur e alcohol) [facility] Utilities Answer Date Recorded In the past 12 months has th e electric, gas, oil, or water [employer] threatened to shut off services in your [...] health care facility (including now)? No 07/28/2023 IPV Inpatient Questions [...] PM EST TH Visit (TeleHealth) [place] [address] Zachary Garcia MD [facility] [place] [address] 06/11/2024 9:00 AM EST Office Visit [place] [address] EspinozaTia de la torreyl E, OT 07/10/2024 8:00 AM EST Office Visit [place] [address] Espinoza, Caroline E, OT 07/24/2024 10:00 AM EST Office Visit [place] [address] Espinoza, Caroline E, OT 08/07/2024 10:00 AM EST Office Visit [place] [address] Espinoza, Caroline E, OT 08/21/2024 10:00 AM EST Office Visit [place] [address] Caroline Espinoza, OT documented as of this encounter Visit Diagnoses Not on filedocumented in this encounter Care Teams Shift Leader Relationship Specialty Start Date End Date Shannan Arellano, [place] [address] PCP - General Family Medicine 02/03/23 documented as of this encounter
--- OUTSIDE RECORDS SUMMARY | 2024-06-04 17:30 | XMS_ITS | Encounter Summary ---
Author Organization [facility] [place] [place] [address] Care Team Providers Care Oncology Registrar Name Role Phone Shannan Arellano GAYLE Primary Care Provider [phone] Reason for Referral * Diagnostic Test (Routine) - Closed Specialty Diagnoses / Procedures Referred By Marry kelsey Referred To Contact Radiology Diagnoses Penile cancer Procedures IR [facility] Olivier Holt MD [facility] [address] HEMATOLOGY [place] [address] [facility] [place] [address] Referral ID Status Reason Start Date Expiration Date V isits Requested Visits Authorized [id number] Closed Specialty Service Requested 08/16/2023 02/13/2025 1 1 Reason for Visit * Diagnostic Test (Routine) - Closed Specialty Diagnoses / Procedures Referred By Marry kelsey Referred To Contact Radiology Diagnoses Penile cancer Procedures IR [facility] Olivier Holt MD [facility] [address] HEMATOLOGY [place] [address] [facility] [place] [address] Referral ID Status Reason Start Date Expiration Date V isits Requested Visits Authorized [id number] Closed Specialty Service Requested 08/16/2023 02/13/2025 1 1 Encounter Details Date Type Department Care Team (Latest Contact Info) Description 08/25/2023 6:31 AM EST - 08/25/2023 11:59 PM EST Hospital Encounter Radiology at [facility] [place] [id number] Olivier Obrien MD [facility] HEMATOLOGY AND [place] [address] Penile cancer Discharge Disposition: Home Social History [...] a senior care (including now)? No 07/28/2023 [facility] Inpatient Questions Answer Date Recorded Does Anyone [...] Sign Reading Time Taken Comments Blood Pressure 113/59 08/25/2023 9:00 AM EST Pulse 49 08/25/2023 8:35 AM EST Temperature 36.4 ??C (97.6 ??F) 08/25/2023 8:45 AM ES T Respiratory Rate 18 08/25/2023 9:00 AM EST Oxygen Saturation 91% 08/25/2023 9:00 AM EST Inhaled Oxygen Concentration - - Weight - - Height - - Body Mass Index - - documented in this encounter Discharge Instructions * Discharge Instructions* Mirna Wallace RN - 08/25/2023 7:50 AM EST Images from the original note were not included. [facility] Department of Vascular and Interventional Radiology Discharge Instructions for your Chest Port You have received a ???Power Port?? , which provides access for infusions and blood draws. What makes this a ???Power Port?? is the unique ability to ???power inject?? contrast (intravenous dye) through the port when getting a CT scan, which produces superior images (pictures). Patients who don???t have these special ports need to have an IV started if they need dye injected for their CT scan. Your port is printed with the letters ???CT?? which can be detected by x- ray to identify it as a ???Power Port?? . You will be provided with an ID card stating the flight crew scheduler and type of port you have. Please carry this with you in a safe place. Bandage: There is a sterile dressing over the port site consisting of small gauze with a clear dressing (Tegaderm or [id number] ). This dressing should be left in place for 48 hours. If the clear dressing becomes loose you should place tape over the edges to secure it in place. Note: If you have steri-strips beneath your dressing, simply allow them to fall off. Do not peel them off. There may be Madeira-arana (skin glue) also, allow this to flake off. Pain: Apply ice bag to site (s) at 30 minute intervals (30 minutes on and 30 minutes off) for 24 hours?? . May use as needed for pain and/or bruising after 24 hours. Bathing: Do not take a shower until 48 hours after your port is placed; after this time you may shower with the dressing in place, then remove it and pat your skin dry. After 48 hours, we recommend that you cover the area with THE AQUA GUARD PROVIDED for 1 week while showering, facing away from theshower stream. You may use a bandaid to cover the site after the 48 hours are up if there is any drainage. No tub baths, whirlpools or swimming for one week following port placement. Flushing the mediport: If your port has not been used, it must be flushed every 30 days. What to expect when your port is accessed: 1. You may feel tenderness the first few times it is accessed but generally this subsides over time. Ask your healthcare provider to use a local anesthetic on the site if discomfort is a problem for you. You may ask for a prescription for a topical cream (EMLA) from your clinician; you may apply athome prior to your appointments, to help numb the skin over your port. 2. The clinician should be wearing sterile gloves and a mask during the access procedure. Anyone inthe room with you should also have a mask on. 3. The skin over and 2 inches around the port should be cleaned with a disinfectant 4. Tell the clinician if you would like the skin numbed (lidocaine) before the access needle is placed. 5. Unless you are unable to take heparin (blood thinner), the port should be injected with a heparin solution before deaccess (at end of each treatment or blood draw). When to call your healthcare provider: If you notice bleeding from the puncture site in your neck, or from the port incision on your chest, you should apply firm pressure over the site for 10-15 minutes, keeping the site covered. Call if you are still bleeding after 10-15 minutes. If you develop pain, redness, drainage or swelling at or around the port site, or the puncture sitein the neck If you develop fever (elevation of more than 2 degrees or greater than 101F) and/or shaking chills When to call the Interventional Radiology Department: Please call with any questions or concerns. If it is during regular office hours, please call [phone]. If it is after regular office hours, or on weekends or holidays, please call [phone] and ask to speak to the [employer] division field inspector for Interventional Radiology. XXX You have received medication during your procedure to help lessen anxiety and keep you comfortable. These medications affect judgement and reaction time. We recommend that you do not drive, operate equipment, sign any important documents, or smoke unattended for 24 hours following your procedure. Because of the sedation, be careful on stairs, as you may be unsteady on your feet. You may resume your regular diet as tolerated. IV site -- slight redness, or tenderness is normal, you can use a warm compress. If tenderness and redness increases or foul drainage occurs, please contact your M. D. Revised 04/05/19 documented in this encounter Medications at Time of Discharge Medication Sig Dispensed Refills Start Date End Date prochlorperazine (Compazine) 10 mg tabletIndications:Peni le cancer Take 1 tablet by mouth every 6 hours as needed for Nausea. 30 tablet 3 08/16/2023 acetaminophen (Tylenol) 325 mg tablet Take 650 mg by mouth as needed for Pain. Maybe once a week famotidine (Pepcid) 40 mg tablet Take 40 mg by mouth. 07/27/2023 fluticasone propionate (Flonase) 50 mcg/actuation Duncan, Suspension by Each Nare route daily. 07/27/2023 oxyCODONE (Roxicodone) 5 mg tablet Take 1 tablet by mouth every 4 hours as needed for Pain (for severe pain not controlled by tylenol/ibuprofen). 5 tablet 06/26/2023 apixaban (Eliquis) 5 mg tablet Take 1 tablet by mouth 2 times daily. 10/13/2023 documented as of this encounter Progress Notes * Cristal Ferro RN - 08/25/2023 11:59 PM EST Interventional and Vascular Radiology Post-Procedure Call Name: Eduardo Contreras Age: 73 y.o. Sex: Male Date of : 1950 Telephone Number: [phone] (home) Telephone Information: PCP: Shannan Arellano APRN [phone] Date/Time of call: August 26, 2023/10:00 AM Procedure: Mediport placement Procedural Provider: LEONOR Tillman Contact with patient or if not, with whom?: Yes Are you having pain related to your procedure now?: No Are you having any swelling or bleeding from the site? No Are there any improvement in your symptoms?: Yes Are you having any other problems related to your procedure?: No Comments: Did you understand the discharge instructions given and do you have any questions?: Yes Comments: Do you have any comments about your Nurse or Provider or the care you received?: No Nurse Comments: * Mirna Wallace RN - 08/25/2023 6:59 AM EST ANGIO NURSING DATABASE Name: Eduardo Contreras Date of : 1950 AGE: 73 y.o. Address: [address] [address] Phone: [phone] (home) Mobile: Telephone Information: Referring Provider: Olivier Obrien REASON FOR VISIT: Order Questions Answers Where will study be performed? [facility] Radiology [120] Is the patient on anticoagulant / antiplatelet therapy ? DOAC (Direct Oral Anticoagulant) Reason for exam and clinical history: Penile cancer plan for adjuvant chemoradiation Clinical information / mayfield questions for radiologist: Needs reliable access for 5-FU pump infusion and mitomycin Exam/Procedure requested: Mediport placement Planned procedure: Mediport implant - single lumen Labs to be performed day of procedure: No labs Sedation: Moderate (Conscious sedation) Prophylactic antibiotic : None Contrast: No contrast Additional medications for procedure: Lidocaine Planned access site: Groin Position: Supine Consent: Pending Medications to discontinue (and days held): None Case Urgency:: G2- Elective Outpatient intervention within 8-14 days No Known Allergies Pertinent PMH: Patient Active Problem List Diagnosis Code Penile cancer C60.9 Intra-abdominal fluid collection R18.8 Surgical site infection T81.49XA Date/Procedure Meds Given/Comments 07/20/23 US Guided Inguinal drain placement x 2 Versed 2mg, Fentanyl 100mcg 08/25/23 Mediport placement Fentanyl 75 mcg IV, Versed 1.5 mg IV Sinus chandler ~50 bpm @ baseline, Hypotensive (80s/50s) w/ sedation - asymptomatic 728 to procedure room 3 via stretcher. Onto table supine. All monitors, O2, safety strap in place.Meds per protocol. Laboratory Results: Lab Results Component Value Date CREATININE 1.02 07/21/2023 Lab Results Component Value Date K 4.3 07/21/2023 Lab Results Component Value Date PLATELET 169 07/21/2023 documented in this encounter H&P Notes * Robbin Cristobal PA - 08/25/2023 7:06 AM EST INTERVENTIONAL RADIOLOGY FOCUSED H&P: Procedure: Mediport Update to H&P: The patient's history and physical exam have been reviewed and completed. There has been NO interval change from that of the pre-procedural note done within the last 30 days. There is NO change in the procedural plan. Physical Exam: Cardiovascular: Regular, Normal Pulmonary: Breath sounds clear to auscultation Meds: Current medications reviewed. No medications held. Labs: No new relevant labs. The planned procedure (and sedation plan if appropriate) , its benefits and risks, and alternativeswere discussed with the patient. The patient consented to the procedure. PRE-SEDATION ASSESSMENT: Sedation Plan: moderate (conscious sedation) ASA: 3: Patient with severe systemic disease Mallampati: I: soft palate, fauces, tonsillar pillars and uvula can be seen Confirm NPO status: Yes History of anesthetic complications: No Current medications reviewed: Yes Allergies reviewed: Yes Source Note - Katerina Fernandez PA - 08/17/2023 7:42 AM EST Images from the original note were not included. Interventional Radiology Focused Pre-procedure H&P: PCP: Shannan Arellano APRN Referring Provider: Olivier Obrien MD Planned procedure: Mediport implant - single lumen Procedure indication: Penile cancer, need for long-term durable venous access for systemic chemotherapy IR workflow: Procedure request received through Interventional Radiology eDH order queue. There are no answered order specific questions. History of Present Illness: Per chart review, Eduardo Contreras is a 73 y.o. male with PMH of penile cancer who presents to Interventional Radiology to undergo Mediport implant. First infusion not yet scheduled. Remainder of patient's medical and surgical history, allergies, medications, and social/family history obtained below as previously outlined in patient's medical record. IR History: Date/Procedure Meds Given/Comments 07/20/23 US Guided Inguinal drain placement x 2 Versed 2mg, Fentanyl 100mcg Anticoagulation/Antiplatelet: Eliquis Labs: Lab Results Component Value Date HGB 12.2 (L) 07/21/2023 HCT 35.4 (L) 07/21/2023 WBC 9.1 07/21/2023 PLATELET 169 07/21/2023 BUN 16 07/21/2023 CREATININE 1.02 07/21/2023 Allergies: Patient has no known allergies. Imaging: PET/CT 08/15/23 Assessment: 73 y.o. male with penile cancer presenting to Interventional Radiology for Mediport implant. Plan Planned procedure: Mediport implant - single lumen Labs to be performed day of procedure: No labs Sedation: Moderate (Conscious sedation) Prophylactic antibiotic : None Contrast: No contrast Additional medications for procedure: Lidocaine Position: Supine Consent: Pending Medications to discontinue (and days held): None Cytopathology presence needed: No Case Urgency:: G2- Elective Outpatient intervention within 8-14 days Medications: Current Outpatient Medications on File Prior to Visit Medication Sig Dispense Refill prochlorperazine (Compazine) 10 mg tablet Take 1 tablet by mouth every 6 hours as needed for Nausea. 30 tablet 3 apixaban (Eliquis) 5 mg tablet Take 1 tablet by mouth 2 times daily. acetaminophen (Tylenol) 325 mg tablet Take 650 mg by mouth as needed for Pain. Maybe once a week famotidine (Pepcid) 40 mg tablet Take 40 mg by mouth. fluticasone propionate (Flonase) 50 mcg/actuation Duncan, Suspension by Each Nare route daily. oxyCODONE (Roxicodone) 5 mg tablet Take 1 tablet by mouth every 4 hours as needed for Pain (for severe pain not controlled by tylenol/ibuprofen). (Patient not taking: Reported on 07/26/2023) 5 tablet 0 No current facility-administered medications on file prior to visit. Past Medical/Surgical history: Patient Active Problem List Diagnosis Code Penile cancer C60.9 Intra-abdominal fluid collection R18.8 Surgical site infection T81.49XA No past medical history on file. Past Surgical History: Procedure Laterality Date IR ALL DRAINAGE PROCEDURES 07/20/2023 IR All Drainage Procedures [facility] INTERVENTIONL RAD PRO CYSTOURETHROSCOPY, BIOPSIES N/A 05/09/2023 CYSTO, URETHROSCOPY WITH BIOPSY (WRVU 2.59) performed by Zachary Garcia MD at [facility] OSC PRO MUSCLE-SKIN FLAP, LEG Bilateral 06/24/2023 FLAP, MYOCUTANEOUS OR FASCIOCUTANEOUS, LOWER EXTREMITY (WRVU 19.04) performed by Zachary Garcia MDat [facility] MAIN OR PRO REMOVAL PENIS, PARTIAL N/A 06/24/2023 PENILE AMPUTATION, PARTIAL (WRVU 11.01) performed by Zachary Garcia MD at [facility] MAIN OR PRO REMOVE GROIN LYMPH NODES SUPERF Bilateral 06/24/2023 LYMPHADENECTOMY, INGUINOFEMORAL- ADRIEN (WRVU 13.62) performed by Zachary Garcia MD at [facility] MAIN OR PRO UNLISTED LAPAROSCOPY PROCEDURE LYMPHATIC SYSTEM Bilateral 06/24/2023 LAPAROSCOPIC LYMPHADENECTOMY (WRVU 17.08) performed by Zachary Garcia MD at [facility] MAIN OR Social History and Habits: Social History Tobacco Use Smoking status: Never Smokeless tobacco: Never Vaping Use Vaping Use: Never used Substance Use Topics Alcohol use: Yes Alcohol/week: [...] assessed in IR the day of procedure) 08/17/2023 Katerina Fernandez PA-C documented in this encounter Plan of Treatment Upcoming Encounters Date Type Department Care Team (Late st Contact Info) Description 06/07/2024 1:00 PM EST TH Visit (TeleHealth) [place] [address] Zachary Garcia MD [facility] [place] [address] 06/11/2024 9:00 AM EST Office [place] [address] Espinoza, Caroline E, OT 07/10/2024 8:00 AM EST Office [place] [address] Espinoza, Caroline E, OT 07/24/2024 10:00 AM EST Office [place] [address] Espinoza, Caroline E, OT 08/07/2024 10:00 AM EST Office [place] [address] Espinoza, Caroline E, OT 08/21/2024 10:00 AM EST Office [place] [address] Espinoza, Caroline E, OT documented as of this encounter Procedures Procedure Name Priority Date/Time Associated Diagnosis Comments IR MEDIPORT PLACEMENT Routine 08/25/2023 8:37 AM EST Penile cancer documented in this encounter Results * IR Mediport Placement (08/25/2023 8:37 AM EST) Anatomical Region Laterality Modality X-Ray Angiograph y Narrative 08/25/2023 9:25 AM EST Interventional Radiology Procedure Note Procedure: Subcutaneous venous port implant Indication: Penile Cancer, durable correction central venous access for chemotherapy Procedure summary: 1.) Venous access with ultrasound guidance 2.) Tunneled port insertion under fluoroscopic guidance Pre-procedure: Informed consent for the procedure including risks, benefits, and alternatives was obtained. Active time-out was performed prior to the procedure. The site was prepared and draped using maximal sterile barrier technique. ?? Sedation: The patient received split doses of intravenous midazolam and fentanyl from the interventional radiology nurse while pulse, pressure, and oxygen saturation were continuously monitored. Technique: The right internal jugular vein was sonographically evaluated and determined to be patent. A permanent image was stored. Local anesthetic was administered. The vein was accessed via real-time ultrasound and micropuncture set with 21 gauge needle. A 0.018 wire was advanced into superior vena cava. The remainder of the procedure was performed under fluoroscopic guidance. A 4 Fr introducer sheath was placed and the wire exchanged for a 0.035 J wire. The wire was advanced into the inferior vena cava. Local anesthetic was administered on the anterior chest wall inferolateral to the puncture site. A 2 cm transverse incision was made in the right anterior chest wall, and with blunt dissection the port pocket was created. A trocar was then used to advance the catheter subcutaneously to the venous access site. The catheter was trimmed to appropriate length and the attached port was inserted into the pocket. A 4 Fr introducer sheath was exchanged for a peel-away sheath over the wire. The wire and inner obturator were removed and the 23 cm catheter advanced into the superior vena cava under fluoroscopic guidance and the sheath was removed. Catheter tip location was identified and a permanent image was stored. The port flushed and aspirated well. ??The pocket was closed using a two-layer technique with 2-0 vicryl deep interrupted and 4-0 vicryl running sutures. The skin closed was with dermabond. The port was not left accessed. Medications: Lidocaine 1% <10 cc subcutaneous, lidocaine 1% with epinephrine <20 cc subcutaneous, fentanyl 75 mcg IV, midazolam 1.5 mg IV Contrast: None Fluoroscopy: 0.5 mGy Estimated blood loss: <5 mL Complications: No immediate Findings Patent, compressible right internal jugular vein by ultrasound evaluation. Catheter tip located in the superior cavoatrial junction. Impression Successful implantation of power-injectable, Medcomp Dignity Mini 8 F low profile single-lumen port in right chest. The port may be used immediately. Service provider: Robbin Cristobal PA-C Present during the intraservice time as documented by the interventional radiology nurse. Attending of record: Zachary Jon MD 08/25/2023 Olivier Obrien MD IMG IR ORDERABLES documented in this encounter Visit Diagnoses Diagnosis Penile cancer Malignant neoplasm of penis, part unspecified documented in this encounter Administered Medications Inactive Administered Medications - up to 3 most recent administrations Medication Order MAR Action Action Date Dose Rate Site fentaNYL (pf) (50 mcg/mL) multi-dose injection 25-50 mcg 25-50 mcg, Intravenous, EVERY 3 MIN PRN, Starting on Saida 08/25/23 at 0652, Until Saida 08/25/23 at 0922, Pain, per unit protocol, For use in Interventional Radiology (IR) only for procedural sedation with direct provider supervision and verbal order. - Start dose: 50 mcg (reduce dose to 25 mcg if history of sedation sensitivity). - Titration dose: 25-50 mcg IV, (based on patient response) every 3 minutes PRN to maintain procedural pain less than 2 per Pain Scale. Maximum dose: 50 mcg/dose, 250 mcg/hour, Angio/IR (Intra-Procedure), Routine Given 08/25/2023 8:04 AM EST 25 mcg Given 08/25/2023 7:44 AM EST 25 mcg Given 08/25/2023 7:36 AM EST 25 mcg lidocaine (Xylocaine) 1% (10 mg/mL) injection 10 mg 10 mg, Subcutaneous, ONCE, 1 dose, On Saida 08/25/23 at 0715, For use in Interventional Radiology (IR) only for procedure with direct provider supervision and verbal order., Angio/IR (Intra-Procedure), Routine Given 08/25/2023 8:08 AM EST 10 mg lidocaine-EPINEPHrine (1% - 1:100,000) injection 20 mL 20 mL, Intradermal, ONCE, 1 dose, On Saida 08/25/23 at 0715, For use in Interventional Radiology (IR) only for procedure with direct provider supervision and verbal order. *This order is NOT a Venous Ablation Order / Dose., Angio/IR (Intra-Procedure), Routine Given 08/25/2023 8:14 AM EST 20 mLs midazolam (pf) (Versed) (1 mg/mL) multi-dose injection 0.5-1 mg 0.5-1 mg, Intravenous, EVERY 3 MIN PRN, Starting on Saida 08/25/23 at 0652, Until Saida 08/25/23 at 0922, Sedation, For use in Interventional Radiology (IR) only for procedural sedation with direct provider supervision and verbal order. - Start dose: 1 mg (Reduce dose to 0.5 mg if history of sedation sensitivity). - Titration dose: 0.5 mg - 1 mg (based on patient response) every 3 minutes PRN to obtain RASS score of -3. Maximum dose: 1 mg/dose, 5 mg/hour., Angio/IR (Intra-Procedure), Routine Given 08/25/2023 8:04 AM EST 0.5 mg Given 08/25/2023 7:44 AM EST 0.5 mg Given 08/25/2023 7:36 AM EST 0.5 mg sodium chloride 0.9 % (flush) (BD PosiFlush Normal Saline 0.9) flush 5 mL 5 mL, Intravenous, 2 TIMES DAILY, First dose on Saida 08/25/23 at 0900, Until Discontinued, Angio/IR (Day of Procedure), Routine Given 08/25/2023 9:00 AM EST 5 mLs documented in this encounter Care Teams Oncology Registrar Relationship Specialty Start Date End Date Shannan Arellano, PATIENT SERVICE ASSOCIATE [address] [place] [address] PCP - General Family Medicine 02/03/23 documented as of this encounter
--- OUTSIDE RECORDS SUMMARY | 2024-06-04 17:30 | XMS_ITS | Encounter Summary ---
Author Organization [facility] Address [facility] [place] [address] Care Team Providers Care Drivematic Machine Operator Name Role Phone Shannan Arellano APRN Primary Care Provider [phone] Encounter Details Date Type Department Care Team (Late st Contact Info) Description 08/17/2023 Notes Only Radiology at [facility] [place] [phone] Katerina Fernandez PA [facility] [address] [place] [address] Social History Tobacco Use Types Packs/Day Years [...] on file documented as of this encounter H&P Notes * Katerina Fernandez PA - 08/17/2023 7:42 AM [...] by mouth. fluticasone propionate (Flonase) 50 mcg/actuation [place], Suspension by Each Nare route daily. oxyCODONE [...] DRAINAGE PROCEDURES 07/20/2023 IR All Drainage Procedures [facility] INTERVENTIONL RAD PRO CYSTOURETHROSCOPY, BIOPSIES N/A 05/09/2023 CYSTO, URETHROSCOPY WITH BIOPSY (WRVU 2.59) performed by Zachary Garcia MD at [facility] OSC PRO MUSCLE-SKIN FLAP, LEG Bilateral 06/24/2023 FLAP, MYOCUTANEOUS OR FASCIOCUTANEOUS, LOWER EXTREMITY (WRVU 19.04) performed by Zachary Garcia MDat [facility] MAIN OR PRO REMOVAL PENIS, PARTIAL N/A 06/24/2023 PENILE AMPUTATION, PARTIAL (WRVU 11.01) performed by Zachary Garcia MD at [facility] MAIN OR PRO REMOVE GROIN LYMPH NODES SUPERF Bilateral 06/24/2023 LYMPHADENECTOMY, INGUINOFEMORAL- ADRIEN (WRVU 13.62) performed by Zachary Garcia MD at [facility] MAIN OR PRO UNLISTED LAPAROSCOPY PROCEDURE LYMPHATIC SYSTEM Bilateral 06/24/2023 LAPAROSCOPIC LYMPHADENECTOMY (WRVU 17.08) performed by Zachary Garcia MD at [facility] MAIN OR Social History and Habits: [...] PM EST TH Visit (TeleHealth) [place] [address] Zachary Garcia MD [facility] [place] [address] 06/11/2024 9:00 AM EST Office [place] [phone] Caroline Espinoza OT 07/10/2024 8:00 AM EST Office [place] [address] Espinoza, Caroline E, OT 07/24/2024 10:00 AM EST Office [place] [address] Espinoza, Caroline E, OT 08/07/2024 10:00 AM EST Office [place] [address] Espinoza, Caroline E, OT 08/21/2024 10:00 AM EST Office [place] [address] Espinoza, Caroline E, OT documented as of this encounter Visit Diagnoses Not on filedocumented in this encounter Care Teams Drivematic Machine Operator Relationship Specialty Start Date End Date Shannan Arellano, [employer] [place] [address] PCP - General Family Medicine 02/03/23 documented as of this encounter
--- OUTSIDE RECORDS SUMMARY | 2024-06-04 17:30 | XMS_ITS | Encounter Summary ---
Author Organization [facility] Address [facility] [place] [address] Care Team Providers Care Supervisor [employer] Name Role Phone Shannan Arellano APRN Primary Care Provider [phone] Encounter Details Date Type Department Care Team (Late st Contact Info) Description 08/11/2023 10:30 AM EST Office Visit Urology at [facility] [place] [phone] Shelbie Garcia MD [facility] [place] [address] Penile cancer Social History Tobacco Use Types Packs/Day Years Used Date Smoking Tobacco: Never Smokeless Tobacco: Never Alcohol Use Standard Drinks/Week Comments Yes 1 (1 standard drink = 0.6 oz pur e alcohol) [facility] Utilities Answer Date Recorded In [...] place to sleep or slept in a residential (including now)? No 07/28/2023 DH IPV Inpatient [...] Sign Reading Time Taken Comments Blood Pressure 124/84 08/11/2023 10:03 AM EST Pulse 75 08/11/2023 10:03 AM EST Temperature - - Respiratory Rate - - Oxygen Saturation - - Inhaled Oxygen Concentration - - Weight - - Height - - Body Mass Index - - documented in this encounter Progress Notes * Shelbie Garcia MD - 08/11/2023 10:30 AM EST Images from the original note were not included. Patient Name: Ebony Contreras Date of Service: 08/11/2023 Primary Care Provider: Shannan Arellano APRN Reason [...] dissection Left lap pelvic node dissection Path: [id number] poorly differentiated penile cancer 4/10 Left inguinal and 3/13 Left pelvic nodes. 0/8 Right nodes. Margins Negative (to be confirmed at tumor board review) [facility] Department of Pathology and Laboratory Medicine Electronic Tester: Corbin Doll MD, FCAP CLIA Certificate: [id number] Name: EBONY CONTRERAS Provider: SHELBIE GARCIA Client: [facility] /Age/Sex: 1950 73 years Male Location: [facility]; 0210; A The signing pathologist has (i) examined the relevant preparation(s) for the specimen(s); and (ii) rendered or confirmed the diagnosis(es). [facility] Printed: 07/06/2023 11:48 EST Dept. of Pathology and Laboratory Medicine [facility] [place] [address] Pathology Report Collected: 06/24/2023 12:57 EST Received: 06/24/2023 13:23 EST Surgical Pathology DIAGNOSIS A - Penile foreskin, excision: No evidence of high-grade dysplasia or malignancy. 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 C - Additional [...] [place] Verified: 07/06/2023 11:48 Pathologist Performed at: -[facility] Dept. of Pathology, [place] [address] Electronic Tester: Corbin Doll MD, AP, [facility] Certificate: [id number] SYNOPTIC Specimen Procedure: Wide local excision of [...] Block(s): B3, B4, B6 Normal Block(s): N/A [facility] 2022 Q3 Release DISCUSSION The infiltrating carcinoma [...] new - 0 mL All drains removed. 08/11/2023 No drainage. Wearing his stockings and biker shorts Continues on Eliquis 2 more days of Levaquin Past Medical History: None Past Surgical History: None Medications: Reviewed Allergies: Reviewed Family History: There is no family history of Penile issues. Father ASCVD. 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 The patient has been for 30 years with 6 children (between them) . The patient drinks rarely Tobacco: Never. Systems review: He can walk a mile. Physical Exam: Looks well Penis some odema, but I can expose the glans and it looks good. No masses Groin look good. Some bilateral induration over [...] with treatment of the surgical bed. Impression: [id number] poorly diff penile cancer sp local excision and bilateral node dissection. With negative margins 3/13 pelvic nodes positive. Doing well Plan: Complete Levaquin Continue Eliquis 3 months Await PET. OK to proceed with chemo XRT in 1-2 weeks if groins stable. I will see in 3-4 months after he has completed his chemo XRT. All questions were answered documented in this encounter Plan of Treatment Upcoming Encounters Date Type Department Care Team (Late st Contact Info) Description 06/07/2024 1:00 PM EST TH Visit (TeleHealth) [place] [address] Shelbie Garcia MD [facility] [place] [address] 06/11/2024 9:00 AM EST Office [place] [address] Caroline Espinoza OT 07/10/2024 8:00 AM EST Office [place] [address] Espinoza Caroline E, OT 07/24/2024 10:00 AM EST Office [place] [address] Espinoza, Caroline E, OT 08/07/2024 10:00 AM EST Office [place] [address] Espinoza, Caroline E, OT 08/21/2024 10:00 AM EST Office [place] [address] Espinoza, Caroline E, OT documented as of this encounter Visit Diagnoses Diagnosis Penile cancer Malignant neoplasm of penis, part unspecified documented in this encounter Care Teams Supervisor [employer] Relationship Specialty Start Date End Date Shannan Arellano, STORE MANAGER [place] [place] [address] PCP - General Family Medicine 02/03/23 documented as of this encounter
--- OUTSIDE RECORDS SUMMARY | 2024-06-04 17:30 | XMS_ITS | Encounter Summary ---
[place] [address] Care Team Providers Care Ornamental Painter Name Role Phone Shannan Arellano GAYLE Primary Care Provider [phone] Reason for Referral * Diagnostic Test (Routine) - Closed Specialty Diagnoses / Procedures Referred By Marry kelsey Referred To Contact Radiology Diagnoses Penile cancer Procedures NM PET CT Skull Base to Mid-thigh Sarah Peters MD [address] [place] [address] [place] [address] [place] [address] Referral ID Status Reason Start Date Expiration Date V isits Requested Visits Authorized [id number] Closed Specialty Service Requested 07/28/2023 01/25/2025 1 1 * Consultation (Routine) - Closed Specialty Diagnoses / Procedures Referred By Marry kelsey Referred To Contact Radiation Oncology Diagnoses Penile cancer Procedures Simulation for Radiation Therapy Planning Sarah Peters MD [address] [place] [address] [place] [address] [facility] Office [address] [place] [phone] Referral ID Status Reason Start Date Expiration Date V isits Requested Visits Authorized [id number] Closed Consult, Test & Treat 08/24/2023 11/24/2023 31 31 Reason for Visit * Consultation (Routine) - Closed Specialty Diagnoses / Procedures Referred By Contac t Referred To Contact Radiation Oncology Diagnoses Penis cancer Zachary Garcia MD [facility] [place] [address] St Rad Onc Office [address] [place] [phone] Referral ID Status Reason Start Date Expiration Date V isits Requested Visits Authorized [id number] Closed Consult, Test & Treat 07/15/2023 07/14/2024 1 1 Encounter Details Date Type Department Care Team (Late st Contact Info) Description 07/28/2023 8:00 AM EST Office Visit Radiation Oncology at [address] [phone] Sarah Peters MD [address] [place] [address] [place] [address] Penile cancer Social History Tobacco Use Types Packs/Day Years Used Date Smoking Tobacco: Never Smokeless Tobacco: Never Alcohol Use Standard Drinks/Week Comments Yes 1 (1 standard drink = 0.6 oz pur e alcohol) [facility] Utilities Answer Date Recorded In the [...] Sign Reading Time Taken Comments Blood Pressure 117/69 07/28/2023 7:45 AM EST Pulse 82 07/28/2023 7:45 AM EST Temperature 37.1 ??C (98.8 ??F) 07/28/2023 7:45 AM ES T Respiratory Rate 18 07/28/2023 7:45 AM EST Oxygen Saturation 98% 07/28/2023 7:45 AM EST Inhaled Oxygen Concentration - - Weight 71.3 kg (157 lb 3.2 oz) 07/28/2023 7:45 A M EST Height - - Body Mass Index 23.9 07/26/2023 3:54 PM EST documented in this encounter Patient Instructions * Patient Instructions* Sarah Peters MD - 07/28/2023 8:00 AM EST Images from the original note were not included. Dear Mr. Contreras, Dr. Garcia asked for me to see you to discuss how radiation therapy can be used to treat your penile cancer and this note is to recap our discussion regarding use of radiation treatments. As your radiation oncologist, I work closely with your other healthcare providers and most importantly, with you to make sure that the treatments we discuss and offer keep your personal preferences and goals in mind. We discussed the following next steps as part of your cancer evaluation and/or treatment: Radiation treatments for Stage 4 penile cancer: Because this cancer has spread to lymph nodes outside of the penis, there is a risk that other lymph nodes could eventually develop cancer. The goal ofradiation to the lymph nodes is to prevent cancer from showing up there and hopefully cure you of this cancer. Other treatment options include: chemotherapy without radiation or no treatment at all Mapping scan to plan your radiation treatments: Your radiation therapy will involve using high energy radiation which kills cancer but also normal healthy tissues. In order to make sure the radiation goes to the cancerous tissues and to also avoid radiating the normal tissues, we design radiationbeams beams into special shapes which come from various different directions. Because no two peopleand no two cancers are completely identical, the radiation plan we create for you will be unique toyou and your body. In order to figure out how many beams to use, how much radiation to give, which angles they should come from, and how they should be shaped, we have asked you to undergo a mapping scan here in our department known as a CT simulation, or CT sim, for short. This is essentially a CAT-scan similar to scans which you may have received before, but slightly different in a few ways: First, it allows us to place you in the exact same position which you should expect to be placed during each of your radiation treatment sessions. Second, it lets us better understand where the radiation targets and the normal tissues that we want to avoid exist, in relation to each other and the radiation beams. Following this scan, we then perform additional calculations and measurements to create the absolute best plan possible for you. Depending on the complexity of the plan, these processescan take from just few hours to several days, and for that we ask for your patience. If you have any questions about the planning process or your custom radiation plan, I would be more than happy to review the plan with you during your first week of treatment. I anticipate you will receive 30 treatments total, daily Tuesday-Tuesday for 6.5 weeks. Your start date and time will be provided once the simulation scan is completed. During your radiation treatments, you can expect to see me once per week so that I can examine you to make sure you are tolerating radiation treatments and so that we can monitor your response to treatment. If you need to see me any other day, one of my colleagues or I would be happy to see you - just ask one of the radiation therapists or radiation nurses for assistance. Side effects of treatment: We briefly discussed short term (temporary) side effects of treatment aswell as possible compliance specialist (late, permanent) side effects of radiation treatment. If they occur, short term side effects may include fatigue, frequent urination, diarrhea, or skin irritation. prison side effects may include swelling of the legs or feet. Please do not hesitate to call me at [phone] with any other questions or concerns you have. IfI am not here, one of our radiation oncology nurses can assist you or help you get in touch with me. A Radiation Oncology doctor is also transition mgr after our normal hours and on weekends for urgent questions or concerns related to radiation treatments that can not wait until normal business hours. To reach the on-call doctor after-hours, just call and have the primary operator page the Radiation Oncologist transition mgr. And, as always, if you experience any life-threatening emergencies which any include the following,you need to seek emergency care immediately by calling 911: 1. Sudden and unexpected breathing difficulty without any exertion 2. Sudden onset of chest pain 3. Sudden onset of severe pain or uncontrolled pain 4. Sudden onset of severe weakness and/or unable to walk 5. Sudden new onset of a seizure 6. Fall resulting in injury 7. Uncontrollable bleeding Sincerely, Sarah Peters MD, MS Radiation Oncology documented in this encounter Progress Notes * Sarah Peters MD - 07/28/2023 8:00 AM EST Images from the original note were not included. Radiation Oncology Consult Note Sarah Peters MD, MS [facility] PATIENT IDENTIFICATION: PATIENT NAME: Eduardo Contreras DATE OF : 1950 REFERRING PROVIDER: Dr Garcia PRIMARY CARE PROVIDER: Shannan Arellano APRN REASON FOR CONSULTATION: Cancer Staging Penile cancer Staging form: Penis, AJCC 8th Edition - Pathologic: Stage IV (pT2, pN3, cM0) - Signed by Sarah Peters MD on 07/22/2023 DATE OF SERVICE: 07/28/2023 HISTORY OF PRESENT ILLNESS: Eduardo is a 73M diagnosed with a penile cancer in the setting of a penile mass. He first noticed a lump at the urethral meatus in 2021. He was seen first by Dr Hardy then later by Dr Garcia 02/2023 at which time results of biopy were reviewed that showed PeIN. On exam in February, Dr Garcia noted a 1cm firm nodule at the distal urethra / glans penis. MRI 04/22/23 showed a 1.2cm distal corpus spongiosum mass and a 1.4cm left inguinal LN. Biopsy with cysto was performed 05/09/23 that showed a distal urethral tumor within the urethra that did not extend past the coronal sulcus. FNA of a left inguinal LN was performed at the same time. 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 Staging PET/CT 06/21/23 showed left inguinal and makayla metastases without any evidence of distant disease. The penile primary was not well visualized, presumably due to small size. 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 7 of 31 nodes were involved with cancer as well (4 inguinal, 3 pelv ic). His case was discussed at TB with recommendations for adjuvant chemoRT. There was some debate about whether or not to treat the surgical bed, given negative margins. He experienced a surgical site infection 07/19/23 with undrained fluid collections and was discharged 2 days later, on levaquin and 4 drains placed. He met with both Drs. Garcia and Micah earlier this week. Dr Obrien reviewed a plan for concurrent 5FU/MMC with RT. Dr Garcia recommends starting chemoRT in early August to allow for wound healing to complete. I am seeing him today to discuss the radiotherapy component of his adjuvant therapy. REVIEW OF SYSTEMS: On further questioning, he reports feeling well with no specific complaints. 07/28/2023 7:28 AM REVIEW OF SYSTEMS Constitutional None of the above Eyes None of the above Respiratory Thick mucous or spit (Sputum or Phlegm) Cardiovascular None of the above Skin, hair None of the above Musculoskeletal None of the above Neurological None of the above Hematologic / Lymphatic None of the above A comprehensive 14 point review of systems was conducted with this patient and is otherwise negative except as documented above. PAST MEDICAL AND SURGICAL HISTORY: No past medical history on file. Past Surgical History: Procedure Laterality Date IR ALL DRAINAGE PROCEDURES 07/20/2023 IR All Drainage Procedures [facility] INTERVENTIONL RAD PRO CYSTOURETHROSCOPY, BIOPSIES N/A 05/09/2023 CYSTO, URETHROSCOPY WITH BIOPSY (WRVU 2.59) performed by Zachary Garcia MD at [facility] OSC PRO MUSCLE-SKIN FLAP, LEG Bilateral 06/24/2023 FLAP, MYOCUTANEOUS OR FASCIOCUTANEOUS, LOWER EXTREMITY (WRVU 19.04) performed by Zachary Garcia MDat [facility] MAIN OR PRO REMOVAL PENIS, PARTIAL N/A 06/24/2023 PENILE AMPUTATION, PARTIAL (WRVU 11.01) performed by Zachary Garcia MD at [facility] MAIN OR PRO REMOVE GROIN LYMPH NODES SUPERF Bilateral 06/24/2023 LYMPHADENECTOMY, INGUINOFEMORAL- ADRIEN (WRVU 13.62) performed by Zachary Garcia MD at [facility] MAIN OR PRO UNLISTED LAPAROSCOPY PROCEDURE LYMPHATIC SYSTEM Bilateral 06/24/2023 LAPAROSCOPIC LYMPHADENECTOMY (WRVU 17.08) performed by Zachary Garcia MD at [facility] MAIN OR CONTRAINDICATIONS TO RADIATION THERAPY: None Prior Radiation to this Site: No Active Connective Tissue Disease (Lupus or Scleroderma) No MEDICATIONS AND ALLERGIES: Medications 07/28/23 0736 Medication Sig Taking? acetaminophen (Tylenol) 325 mg tablet Take 650 mg by mouth every 4 hours as needed for Pain. Yes famotidine (Pepcid) 40 mg tablet Take 40 mg by mouth. Yes fluticasone propionate (Flonase) 50 mcg/actuation [place], Suspension by Each Nare route daily. Yes levoFLOXacin (Levaquin) 500 mg tablet Take 1 tablet by mouth daily. Yes apixaban (Eliquis) 5 mg tablet Take 1 tablet by mouth 2 times daily for 30 days. Starting Jun 28, 2023. 5mg twice a day Yes oxyCODONE (Roxicodone) 5 mg tablet Take 1 tablet by mouth every 4 hours as needed for Pain (for severe pain not controlled by tylenol/ibuprofen). 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 General: alert, appears stated age, and in no distress sitting in exam room with Sylvie at side Abdomen: soft, nt. : diffuse induration / erythema left groin. Dressings in place - did not remote. All 4 drains with serous output. Penile head fully retracted within circumcised remnant foreskin with dissolvable sutures still in place at the glans. No tenderness or nodularity to penile surgical bed. 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 Currently he is being treated for surgical site infection and fluid collections, with oral antibiotics and [address] Today we reviewed the role for adjuvant chemoradiation. He is already met with Dr. Obrien and would like to proceed. The doctor Micah plans on administering the Jammie regimen (eg 5FU/MMC), I will review whether oral Xeloda may be easier to administer, as is commonly used in the GI setting. Ideally, adjuvant therapy would begin for 6 weeks postoperatively. Given that healing delayed, we will defer the start of chemoradiation until cleared by Dr. Garcia's team, anticipating a start in early August. Given the slight delay and lymph node extent, I would recommend restaging PET/CT to be certain that there is no evidence of distant disease prior to starting chemoradiation. I we will ask for a PET/CT to be performed towards the end of this month so that his current infection can clear and obscure any findings. I reviewed the role of chemoradiation today, as well as the logistics and toxicities associated with treatment. He understands that radiation will be given on a daily basis for approximately 6 weeks.Common short-term side effects including radiation cystitis, enteritis and dermatitis were reviewed. The long- term I discussed the risk of chronic lymphedema. Informed consent was obtained today in clinic, and we will plan to see him for simulation in early August. All of Eduardo' questions were answered to his fullest satisfaction, and we have provided him with our contact information should any further questions or concerns arise. SUMMARY OF PLAN / RECOMMENDATION: Intent of therapy: Curative Clinical Trial Availability: No TIME ATTESTATION: I certify spending at least 60 minutes in providing care to this patient today, 07/28/23 as reflected by the following activities: - review of his medical record in the chart, including interpretation of imaging, laboratory and pathologic studies referenced above - discussion of the above with the patient as part of shared medical decision making - documenting the outcome of today's visit as above SARAH PETERS MD, MS * Katerina Ochoa RN - 07/28/2023 8:00 AM EST RADIATION ONCOLOGY NURSING INITIAL NURSING ASSESSMENT Chief complaint: Penile CA NPW ADVANCE DIRECTIVES: did not discuss today PRESENTING SYSTEMS and PATHOLOGY: Post-op infection to incision site- still taking Levaquin Currently has 4 drains - 2 in each upper thigh REVIEW OF SYSTEMS: see questionnaire Medical history: No past medical history on file. Surgical history: Last colonoscopy - 5 years ago Past Surgical History: Procedure Laterality Date IR ALL DRAINAGE PROCEDURES 07/20/2023 IR All Drainage Procedures [facility] INTERVENTIONL RAD PRO CYSTOURETHROSCOPY, BIOPSIES N/A 05/09/2023 CYSTO, URETHROSCOPY WITH BIOPSY (WRVU 2.59) performed by Zachary Garcia MD at [facility] OSC PRO MUSCLE-SKIN FLAP, LEG Bilateral 06/24/2023 FLAP, MYOCUTANEOUS OR FASCIOCUTANEOUS, LOWER EXTREMITY (WRVU 19.04) performed by Zachary Garcia MDat [facility] MAIN OR PRO REMOVAL PENIS, PARTIAL N/A 06/24/2023 PENILE AMPUTATION, PARTIAL (WRVU 11.01) performed by Zachary Garcia MD at [facility] MAIN OR PRO REMOVE GROIN LYMPH NODES SUPERF Bilateral 06/24/2023 LYMPHADENECTOMY, INGUINOFEMORAL- ADRIEN (WRVU 13.62) performed by Zachary Garcia MD at [facility] MAIN OR PRO UNLISTED LAPAROSCOPY PROCEDURE LYMPHATIC SYSTEM Bilateral 06/24/2023 LAPAROSCOPIC LYMPHADENECTOMY (WRVU 17.08) performed by Zachary Garcia MD at [facility] MAIN OR Social History: Driving from - [place], [place] Lives with - Sylvie 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 Hasn't been working since surgery at the beginning of Jun. Alcohol/Drug/Tobacco use - 1 beer per week. No drugs. Never smoker Social History Socioeconomic History Marital status: Spouse name: Not on file Number of children: Not on file Years of education: Not on file Highest education level: Not on file Occupational History Not on file Tobacco Use Smoking status: Never Smokeless tobacco: Never Vaping Use Vaping Use: Never used Substance and Sexual Activity Alcohol use: Yes Alcohol/week: 1.0 standard drink of alcohol Types: 1 Cans of beer per week Drug use: Never Sexual activity: Not on file Other Topics Concern Not on file Social History Narrative Not on file Social Determinants of Health Financial Resource Strain: Low Risk (07/28/2023) Overall Financial Resource Strain (CARDIA) Difficulty of Paying Living Expenses: Not hard at all Food Insecurity: Unknown (07/28/2023) Hunger Vital Sign Worried About Running Out of Food in the Last Year: Not on file Ran Out of Food in the Last Year: Never true Transportation Needs: No Transportation Needs (07/28/2023) PRAPARE - Transportation Lack of Transportation (Medical): No Lack of Transportation (Non-Medical): No Physical Activity: Not on file Intimate Partner Violence: Patient Unable To Answer (07/26/2023) IPV Inpatient Questions Prevent Contact with Others: unable to answer (comment required) Feels Threatened by Someone: unable to answer (comment required) Feels Unsafe at Home: unable to answer (comment required) Physical Signs of Abuse Present: no Housing Stability: Low Risk (07/28/2023) Housing Stability Vital Sign Unable to Pay for Housing in the Last Year: No Number of Places Lived in the Last Year: 1 Unstable Housing in the Last Year: No Family History of cancer: History reviewed. No pertinent family history. Prior Radiotherapy: No Site: Date: Facility: Prior Chemotherapy: No Drug: Oncologist- LastTreatment: Prior hormone treatment/medications: No Drug: LastTreatment: RADIATION SPECIFIC REVIEW: NO: YES: Claustrophobia or requires sedation for MRIs X Allergy to CT or MRI contrast agent or iodine or shellfish X Diabetic and on metformin X Metal in body, implanted device, worked with metal, body piercings,braces X hearing device X Dentures X Pacemaker X Difficulty breathing while lying flat X H/O Sclera derma X Currently X Active lupus X Kidney problems/creatinine X Balance difficulty: No At risk for fall: No If yes, actions implemented to prevent fall: Patient/family instructed to avoid independent ambulation. Use wheelchair and ask for assistance of staff while in the clinic. ADL [ X ] no limits [ ] needs dressing assistance [ ] needs meal assistance Assistive device:[ X ]none [ ]cane [ ]walker [ ]wheelchair [ ]other: explain PAIN ASSESSMENT: [ 0 ] out of 10 Location: Description: [ ] Dull [ ] Sharp [ ] Burning [ ] Throbbing [ ] Radiating [ ] Continuous [ ]Intermittent Aggravating Factors: [ ] Movement [ ] Position [ ]Immobility [ ]Other Alleviating Factors: [ ]Medication [ ] Positioning [ ] Other Current Pain Management Plan: [ ]Satisfied [ ] Not satisfied SOCIAL ASSESSMENT: See [facility] social assessment information entered. Support Systems: Sylvie, kids, friends transportation plan: [X ]private vehicle [ ] RCT needs Social Work referral [ ] Unknown at this time needs Social Work referral Barriers to treatment: None Referrals/Interventions: Will see AFFILIATE MARKETING COORDINATOR per routine during SIM appointment. TEACHING: Learning Assessment Does the primary learner have any barriers to learning?: No Barriers How does the primary learner prefer to learn new concepts?: Listening Education material provided: Will be provided during SIM appointment per routine documented in this encounter Plan of Treatment Upcoming Encounters Date Type Department Care Team (Late st Contact Info) Description 06/07/2024 1:00 PM EST TH Visit (TeleHealth) [place] [address] Zachary Garcia MD [facility] [place] [address] 06/11/2024 9:00 AM EST Office Visit [place] [address] Espinoza Caroline E, OT 07/10/2024 8:00 AM EST Office [place] [address] Espinoza Caroline E, OT 07/24/2024 10:00 AM EST Office Visit [place] [address] Espinoza, Caroline E, OT 08/07/2024 10:00 AM EST Office Visit [place] [address] Espinoza Caroline E, OT 08/21/2024 10:00 AM EST Office [place] [address] Espinoza, Caroline E, OT Scheduled Orders Name Type Priority Associated Diagnoses Orde r Schedule Simulation for Radiation Therapy Planning Radiation Oncology Routine Penile cancer Expected: 08/24/2023, Expires: 02/23/2024 documented as of this encounter Results * [...] who have questions please contact the health neonatal intensive care nurse that requested your imaging first. ? Narrative 08/19/2023 10:53 AM EST EXAMINATION: NM PET CT STANDARD SKULL BASE TO MID-THIGH CLINICAL HISTORY: Genital cancer, assess treatment response C60.9, Malignant neoplasm of penis, unspecified TECHNIQUE: Following IV injection of 40-dogweg-7-deoxyglucose (FDG) a standard uptake of approximately 60 [...] penis, unspecified TECHNIQUE: Following IV injection of 69-jtavoe-6-deoxyglucose (FDG) astandard uptake of approximately 60 minutes, [...] patients who have questions please contactthe health neonatal intensive care nurse that requested your imaging first. Sarah Peters MD IMG PET ORDERABLES documented in this encounter Visit Diagnoses Diagnosis Penile cancer Malignant neoplasm of penis, part unspecified Penile cancer Malignant neoplasm of penis, part unspecified documented in this encounter Care Teams Ornamental Painter Relationship Specialty Start Date End Date Shannan Arellano, WATERPROOF MATERIAL FOLDER [address] [place] [address] PCP - General Family Medicine 02/03/23 documented as of this encounter
--- OUTSIDE RECORDS SUMMARY | 2024-06-04 17:30 | XMS_ITS | Encounter Summary ---
[place] [address] Care Team Providers Care Sterile Processing Manager Name Role Phone Shannan Arellano GAYLE Primary Care Provider [phone] Reason for Referral * Diagnostic Test (Routine) - Closed Specialty Diagnoses / Procedures Referred By Marry kelsey Referred To Contact Radiology Diagnoses Penile cancer Procedures NM PET CT Skull Base to Mid-thigh Rolly Peters MD [address] [place] [address] [place] [address] [place] [address] Referral ID Status Reason Start Date Expiration Date V isits Requested Visits Authorized [id number] Closed Specialty Service Requested 07/28/2023 01/25/2025 1 1 Reason for Visit * Diagnostic Test (Routine) - Closed Specialty Diagnoses / Procedures Referred By Marry kelsey Referred To Contact Radiology Diagnoses Penile cancer Procedures NM PET CT Skull Base to Mid-thigh Rolly Peters MD [address] [place] [address] [place] [address] [place] [address] Referral ID Status Reason Start Date Expiration Date V isits Requested Visits Authorized [id number] Closed Specialty Service Requested 07/28/2023 01/25/2025 1 1 Encounter Details Date Type Department Care Team (Latest Contact Info) Description 08/15/2023 8:55 AM EST Hospital Encounter [place] [address] Rolly Peters MD [address] [place] [address] [place] [address] Penile cancer Discharge Disposition: Home Social History Tobacco Use Types Packs/Day Years Used Date Smoking Tobacco: Never Smokeless Tobacco: Never Alcohol Use Standard Drinks/Week Comments Yes 1 (1 standard drink = 0.6 oz pur e alcohol) [facility] Utilities Answer [...] mouth. 07/27/2023 fluticasone propionate (Flonase) 50 mcg/actuation [place], Suspension by Each Nare route daily. 07/27/2023 [...] 08/03/2023 08/16/2023 documented as of this encounter Progress Notes * Olivier Obrien MD - 08/15/2023 8:55 AM EST Patient Name: Eduardo Contreras Patient Age: 73 y.o. Birthdate: 1950 Admit date: 08/15/2023 Attending Physician: No att. providers found documented in this encounter Plan of Treatment Upcoming Encounters Date Type Department Care Team (Late st Contact Info) Description 06/07/2024 1:00 PM EST TH Visit (TeleHealth) [place] [address] Zachary Garcia MD [facility] [place] [address] 06/11/2024 9:00 AM EST Office [place] [address] EspinozaTia santiagoyl E, OT 07/10/2024 8:00 AM EST Office [place] [address] Espinoza Caroline E, OT 07/24/2024 10:00 AM EST Office [place] [address] Espinoza Caroline E, OT 08/07/2024 10:00 AM EST Office [place] [address] Espinoza Caroline E, OT 08/21/2024 10:00 AM EST Office [place] [address] EspinozaCaroline, OT documented as of this encounter Procedures Procedure Name Priority Date/Time Associated Diagnosis Comments NM PET CT SKULL BASE TO MID-THIGH ([facility]) Routine 08/15/2023 10:20 AM EST Penile cancer POCT GLUCOSE Routine 08/15/2023 9:07 AM EST documented in this encounter Results * NM [...] who have questions please contact the health care taker that requested your imaging first. ? Narrative 08/19/2023 10:53 AM EST EXAMINATION: NM PET CT STANDARD SKULL BASE TO MID-THIGH CLINICAL HISTORY: Genital cancer, assess treatment response C60.9, Malignant neoplasm of penis, unspecified TECHNIQUE: Following IV injection of 36-bzuukn-2-deoxyglucose (FDG) a standard uptake of approximately 60 [...] penis, unspecified TECHNIQUE: Following IV injection of 76-zwpuvl-0-deoxyglucose (FDG) astandard uptake of approximately 60 minutes, [...] patients who have questions please contactthe health care taker that requested your imaging first. Rolly Peters MD IMG PET ORDERABLES * POCT Glucose (08/15/2023 9:07 AM EST) Glucose, POC 87 65 - 199 mg/dL [facility] Comment: Supplemental ranges: <140 mg/dL before meals <180 mg/dL all other times of the day Blood 08/15/2023 9:07 AM EST 08/15/2023 9:07 AM EST Rolly Peters MD POINT OF CARE TEST O RDERABLES [facility] [place] [address] documented in this encounter Visit Diagnoses Diagnosis Penile cancer Malignant neoplasm of penis, part unspecified documented in this encounter Administered Medications Inactive Administered Medications - up to 3 most recent administrations Medication Order MAR Action Action Date Dose Rate Site fludeoxyglucose (F-18) FDG injection 0-20 mCi 0-20 mCi, Intravenous, ONCE PRN, 1 dose, Starting on Tue08/15/23 at 0920, Until Tue08/15/23 at 0914, Per Protocol, Radiology Contrast, Routine Given 08/15/2023 9:14 AM EST 10.6 mCi documented in this encounter Care Teams Sterile Processing Manager Relationship Specialty Start Date End Date Shannan Arellano, CAREER PROFESSIONAL [address] [place] [address] PCP - General Family Medicine 02/03/23 documented as of this encounter
--- OUTSIDE RECORDS SUMMARY | 2024-06-04 17:30 | XMS_ITS | Encounter Summary ---
Author Organization [facility] Address [facility] [address] Care Team Providers Care Cathead Worker Name Role Phone Shannan Arellano APRN Primary Care Provider [phone] Encounter Details Date Type Department Care Team (Latest Contact Info) Description 09/06/2023 Travel Social History Tobacco Use Types Packs/Day Years Used Date Smoking Tobacco: Never Smokeless Tobacco: Never Alcohol Use Standard Drinks/Week Comments Yes 1 (1 standard drink = 0.6 oz pur e alcohol) [facility] Utilities Answer Date Recorded In the past 12 months has th e electric, gas, oil, or water [employer] threatened to shut off services in your [...] PM EST TH Visit (TeleHealth) [place] [address] Zachary Garcia MD [facility] [place] [address] 06/11/2024 9:00 AM EST Office Visit [place] [address] EspinozaTia de la torreyl E, OT 07/10/2024 8:00 AM EST Office Visit [place] [address] Espinoza, Caroline E, OT 07/24/2024 10:00 AM EST Office Visit [place] [address] Espinoza, Caroline E, OT 08/07/2024 10:00 AM EST Office Visit [place] [address] Espinoza, Caroline E, OT 08/21/2024 10:00 AM EST Office Visit [place] [address] Caroline Espinoza, OT documented as of this encounter Visit Diagnoses Not on filedocumented in this encounter Care Teams Cathead Worker Relationship Specialty Start Date End Date Shannan Arellano, OPERATIONS [place] [address] PCP - General Family Medicine 02/03/23 documented as of this encounter
--- OUTSIDE RECORDS SUMMARY | 2024-06-04 17:30 | XMS_ITS | Encounter Summary ---
Author Organization [facility] Address [facility] [place] [address] Care Team Providers Care Labor Operator Name Role Phone Shannan Arellano GAYLE Primary Care Provider [phone] Encounter Details Date Type Department Care Team (Late st Contact Info) Description 09/13/2023 2:30 PM EDT Office Visit Hematology/Oncology at [address] [phone] Olivier Obrien MD [facility] [place] [address] Lucinda Cardenas APRN [facility] [place] [place] [address] Penile cancer; Edema, unspecified type; Fatigue, unspecified type Social History Tobacco Use Types Packs/Day Years Used Date Smoking Tobacco: Never Smokeless Tobacco: Never Alcohol Use Standard Drinks/Week Comments Yes 1 (1 standard drink = 0.6 oz pur e alcohol) [facility] Utilities Answer Date Recorded In the past 12 months has [employer], gas, oil, or water [employer] threatened to shut off services in your [...] in a fpc (including now)? No 07/28/2023 DH IPV Inpatient [...] Sign Reading Time Taken Comments Blood Pressure 117/72 09/13/2023 2:41 PM EDT Pulse 65 09/13/2023 2:41 PM EDT Temperature 37.1 ??C (98.7 ??F) 09/13/2023 2:41 PM ED T Respiratory Rate 18 09/13/2023 2:41 PM EDT Oxygen Saturation 97% 09/13/2023 2:41 PM EDT Inhaled Oxygen Concentration - - Weight 74.4 kg (164 lb) 09/13/2023 2:41 PM EDT Height 172.7 cm (5' 7.99) 09/13/2023 2:41 PM ED T Body Mass Index 24.94 09/13/2023 2:41 PM EDT documented in this encounter Progress Notes * Lucinda Cardenas APRN - 09/13/2023 2:30 PM EDT Images from the original [...] dissection Left lap pelvic node dissection Path: [id number] poorly differentiated penile cancer 4/10 Left inguinal [...] history 09/13/23:Eduardo Contreras is in clinic for follow-up s/p 5- Fu/mitomycin C1. Overall he tolerated treatment well. He has fatigue and general malaise, but feels better since getting the pump off. He has dry cracking lips secondary to the 5-fu, but no mouth sores and this is not affecting his eating or drinking. He is using aquaphor which is helping. He has swelling to his groin, thighand scrotum and continues to wear compression and sees PT. No fever or chills or signs of infection. He has dry, cracked skin on his hands and feet and will try aquaphor, this is not limiting his walking or activity. He has loose stools and urgency and imodium helps. Mild nausea and compazine helps. Denies any pain. The remainder of his review of systems reviewed and is negative. 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 The patient has been for 30 yearswith 6 children (between them) . The patient drinks occasionally. He is here today with his . Allergies: No Known Allergies Medications: Your Medications Accurate as of September 13, 2023 3:54 PM. If you have any questions, ask [...] mg Refills: 0 fluticasone propionate 50 mcg/actuation [place], Suspension Commonly known as: Flonase by Each Nare route daily. Refills: 0 lidocaine-prilocaine Cream Commonly known as: EMLA Apply topically as needed. Quantity: 30 g Refills: 1 oxyCODONE 5 mg tablet Commonly known as: [...] Head: NCAT Eyes: Non-injected, anicteric. Mouth: dry, cracked lips, no mucositis or thrush. Neck: No lymphadenopathy Cardiovascular: RRR, no murmur. Resp: Effort normal. No respiratory distress. CTA Lymph: No palpable lymph nodes in cervical, supraclavicular, axillary areas. Abdominal: Soft, NT, ND, BS+ Extremities: BLE swelling (R>L) is improved since surgery and with compression and PT. Skin: dry, cracked skin to his fingertips, no erythema or peeling BP 117/72 (Patient Position: Sitting) Pulse 65 Temp 37.1 ??C (98.7 ??F) (Temporal) Resp 18 Ht 172.7 cm (5' 7.99) Wt 74.4 kg (164 lb) SpO2 97% BMI 24.94 kg/m?? Pathology: 06/24/23 DIAGNOSIS A - Penile foreskin, excision: No evidence of high-grade dysplasia or malignancy. 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 C - Additional [...] Ennis Verified: 07/06/2023 11:48 Pathologist Performed at: -[facility] Dept. of Pathology, [place] [address] Cab Supervisor: Corbin Doll MD, [facility], [facility] Certificate: [id number] SYNOPTIC Specimen Procedure: Wide local excision of [...] Block(s): B3, B4, B6 Normal Block(s): N/A [facility] 2022 Q3 Release DISCUSSION The [...] clear cell, lymphoepithelioma-like, or medullary subtypes). Labs: 09/13/23: No labs for today's visit 08/09/2023 WBC 6.96, hemoglobin 13.2, platelet count [...] small size and location. Assessment and Plan: Diagnosis:[id number] poorly diff penile cancer sp local excision [...] with blood work and chemotherapy teaching by TITLE SEARCHER. 08/16/2023 PET scan: Report is pending, personally [...] dry, cracking lips and hands and feet. #CINV, mild: compazine helps. #Post op lymphedema and scrotal swelling: Improved, continues with compression and follows with PT. #fatigue: secondary to treatment, tolerable and remains active. #Dry, cracked skin to his lips and finger tips: secondary to treatment, mild. Will continue with aquaphor Plan: F/u next week on 09/19, labs prior to visit. Mitomycin/5-fu C2 to begin on 09/21/23 if counts ok for treatment. Of note, if blood counts have not recovered we will plan to delay chemotherapy 1 week. Continue RT Aquaphor for dry, cracked lips and skin on hands and feet Lucinda Cardenas APRN 30 minutes were spent on date of visit, including non-face to face time. documented in this encounter Plan of Treatment Upcoming Encounters Date Type Department Care Team (Late st Contact Info) Description 06/07/2024 1:00 PM EST TH Visit (TeleHealth) [place] [address] Zachary Garcia MD [facility] [place] [address] 06/11/2024 9:00 AM EST Office Visit [place] [address] Caroline Espinoza, OT 07/10/2024 8:00 AM EST Office [place] [address] Tia Espinozayl E, OT 07/24/2024 10:00 AM EST Office [place] [address] Espinoza, Caroline E, OT 08/07/2024 10:00 AM EST Office [place] [address] EspinozaTia de la torreyl E, OT 08/21/2024 10:00 AM EST Office [place] [address] EspinozaCaroline de la torre E, OT documented as of this encounter Visit Diagnoses Diagnosis Penile cancer Malignant neoplasm of penis, part unspecified Edema, unspecified type Fatigue, unspecified type documented in this encounter Care Teams Labor Operator Relationship Specialty Start Date End Date Shannan Arellano, CYLINDER PRESS OPERATOR HEL[place] [address] PCP - General Family Medicine 02/03/23 documented as of this encounter
--- OUTSIDE RECORDS SUMMARY | 2024-06-04 17:30 | XMS_ITS | Encounter Summary ---
Author Organization [facility] Address [facility] [place] [address] Care Team Providers Care Lead Inspector Name Role Phone Shannan Arellano APRN Primary Care Provider [phone] Encounter Details Date Type Department Care Team (Latest Contact Info) Description 07/28/2023 Travel Social History Tobacco Use Types Packs/Day Years Used Date Smoking Tobacco: Never Smokeless Tobacco: Never Alcohol Use Standard Drinks/Week Comments Yes 1 (1 standard drink = 0.6 oz pur e alcohol) [facility] Utilities Answer Date Recorded In the past 12 months has th e electric, gas, oil, or water [employer] threatened to shut off services in your [...] in a usp (including now)? No 07/28/2023 IPV Inpatient Questions [...] PM EST TH Visit (TeleHealth) [place] [address] Zachary Garcia MD [facility] [place] [address] 06/11/2024 9:00 AM EST Office Visit [place] [address] EspinozaTia de la torreyl E, OT 07/10/2024 8:00 AM EST Office [place] [address] Espinoza, Caroline E, OT 07/24/2024 10:00 AM EST Office [place] [address] Espinoza, Caroline E, OT 08/07/2024 10:00 AM EST Office [place] [address] Espinoza, Caroline E, OT 08/21/2024 10:00 AM EST Office [place] [address] Caroline Espinoza, OT documented as of this encounter Visit Diagnoses Not on filedocumented in this encounter Care Teams Lead Inspector Relationship Specialty Start Date End Date Shannan Arellano, TRAILER SE[place] [address] PCP - General Family Medicine 02/03/23 documented as of this encounter
--- OUTSIDE RECORDS SUMMARY | 2024-06-04 17:30 | XMS_ITS | Encounter Summary ---
Author Organization [facility] Address [facility] [place] [id number] Care Team Providers Care Flight Control Manager Name Role Phone Shannan Arellano GAYLE Primary Care Provider [phone] Encounter Details Date Type Department Care Team (Late st Contact Info) Description 08/17/2023 Telephone Hematology/Oncology at [address] [address] Chasidy Cali Social History Tobacco Use Types Packs/Day Years Used Date Smoking Tobacco: Never Smokeless Tobacco: Never Alcohol Use Standard Drinks/Week Comments Yes 1 (1 standard drink = 0.6 oz pur e alcohol) [facility] Utilities Answer Date Recorded In [...] a group home (including now)? No 07/28/2023 IPV Inpatient [...] * Telephone Encounter - Chasidy Cali - 08/17/2023 9:26 AM EST Called and spoke with [facility] to let her know that medi port placement is on 08/25/23 in [facility]. They will need to be there by 6:30am. They are aware of the appt and are fine with it documented in this encounter Plan of Treatment Upcoming Encounters Date Type Department Care Team (Late st Contact Info) Description 06/07/2024 1:00 PM EST TH Visit (TeleHealth) [place] [address] Zachary Garcia MD [facility] [place] [address] 06/11/2024 9:00 AM EST Office [place] [address] Caroline Espinoza OT 07/10/2024 8:00 AM EST Office [place] [address] Espinoza, Caroline E, OT 07/24/2024 10:00 AM EST Office [place] [address] Espinoza, Caroline E, OT 08/07/2024 10:00 AM EST Office [place] [address] Espinoza, Caroline E, OT 08/21/2024 10:00 AM EST Office [place] [address] Espinoza, Caroline E, OT documented as of this encounter Visit Diagnoses Not on filedocumented in this encounter Care Teams Flight Control Manager Relationship Specialty Start Date End Date Shannan Arellano, WARDROBE [place] [address] PCP - General Family Medicine 02/03/23 documented as of this encounter
--- OUTSIDE RECORDS SUMMARY | 2024-06-04 17:30 | XMS_ITS | Encounter Summary ---
Author Organization [facility] [place] [address] Care Team Providers Care Staff Interpreter Name Role Phone Shannan Arellano GAYLE Primary Care Provider [phone] Reason for Referral * Diagnostic Test (Routine) - Closed Specialty Diagnoses / Procedures Referred By Contrico t Referred To Contact Radiology Diagnoses Penile cancer Procedures IR Mediport Placement Olivier Obrien MD [facility] [place] [address] [facility] [place] [address] Referral ID Status Reason Start Date Expiration Date V isits Requested Visits Authorized [id number] Closed Specialty Service Requested 08/16/2023 02/13/2025 1 1 Encounter Details Date Type Department Care Team (Late st Contact Info) Description 08/16/2023 2:30 PM EST Office Visit Hematology/Oncology at [address] [address] [facility] [place] [address] [address] [facility] [place] [address] Penile cancer (Primary Dx) Social History Tobacco Use Types Packs/Day Years Used Date Smoking Tobacco: Never Smokeless Tobacco: Never Alcohol Use Standard Drinks/Week Comments Yes 1 (1 standard drink = 0.6 oz pur e alcohol) [facility] Utilities Answer Date Recorded In the [...] Sign Reading Time Taken Comments Blood Pressure 120/72 08/16/2023 2:55 PM EST Pulse 79 08/16/2023 2:55 PM EST Temperature 36.3 ??C (97.3 ??F) 08/16/2023 2:55 PM ES T Respiratory Rate 16 08/16/2023 2:55 PM EST Oxygen Saturation 96% 08/16/2023 2:55 PM EST Inhaled Oxygen Concentration - - Weight 75.8 kg (167 lb) 08/16/2023 2:55 PM EST Height 172.7 cm (5' 7.99) 08/16/2023 2:55 PM ES T Body Mass Index 25.4 08/16/2023 2:55 PM EST documented in this encounter Progress Notes * Olivier Obrien MD - 08/16/2023 2:30 PM EST Images from the original note were not included. Diagnosis: Penile cancer CC:I feel okay HPI:Eduardo Contreras is 73 y.o.M referred by [...] dissection Left lap pelvic node dissection Path: [id number] poorly differentiated penile cancer 4/10 Left inguinal and 3/13 Left pelvic nodes. 0/8 Right nodes. Margins Negative (to be confirmed at tumor board review) 07/19/23 readmitted s/p b/l inguinal surgical drains which was complicated by bilateral groin/thigh subcutaneous fluid collections s/p 10Fr drains (07/20 - cultures grew beta hemolytic streptococci & acinetobacter junii) currently on antibiotics Interval history:Eduardo Contreras is in clinic for follow-up appointment on penile cancer. He continues to follow with Dr. Garcia on his abscess/fluid retention after surgery. According to Dr. Garcia, there was no draining fluid so all drains were removed on August 11. He complains on cough with some phlegm which is chronic but getting worse now. No fever or chills. Denies any pain. 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 The patient has been for 30 yearswith 6 children (between them) . The patient drinks occasionally Family History: Noncontributory Allergies: No Known Allergies Medications: Your Medications Accurate as of August 16, 2023 3:25 PM. If you have any questions, ask [...] mg Refills: 0 fluticasone propionate 50 mcg/actuation Peterson, Suspension Commonly known as: Flonase by Each Nare route daily. Refills: 0 oxyCODONE 5 mg tablet Commonly known as: Roxicodone Take 1 tablet by mouth every 4 hours as needed for Pain (for severe pain not controlled by tylenol/ibuprofen). 5 mg Quantity: 5 tablet Refills: 0 STOPPED Medications levoFLOXacin 500 mg tablet Commonly known as: Levaquin Stopped by: MD domi GONZALEZ Review of Systems: Constitutional: Negative for fever, chills, activity change, fatigue and unexpected weight change. HEENT: Negative for sore throat, mouth sores and trouble swallowing. Eyes: Negative. Respiratory: Positive for cough, negative for shortness of breath and wheezing. Cardiovascular: Negative for chest pain, palpitations and leg swelling. Gastrointestinal: Negative for nausea, vomiting, abdominal pain, diarrhea, constipation and abdominal distention. Genitourinary: Negative for dysuria and difficulty urinating. Musculoskeletal: Negative. Skin: Negative. Neurological: Negative. Hematological: Negative for adenopathy. PE: Constitutional: NAD HENT: Head: NCAT Eyes: Non-injected, anicteric. Neck: Normal ROM, supple. Cardiovascular: RRR, no murmur. Resp: Effort normal. No respiratory distress. Wheezes bilat lobes, no rales or rhonchi. Lymph: No palpable lymph nodes in cervical, supraclavicular, axillary areas. Abdominal: mild induration/swelling of left groin . 4 drains with SS output. Soft, NT, ND, BS+ : no CVA tenderness. Skin: Skin is warm and dry. No rash or lesions noted on limited exam. No pallor. Musculoskeletal: No spinal tenderness. Normal range of motion, ambulatory. Extremities: No distal edema noted. Neurological: Alert & oriented, no focal deficits. Psych: Conversant, normal mood and affect. BP 120/72 (Patient Position: Sitting) Pulse 79 Temp 36.3 ??C (97.3 ??F) (Temporal) Resp 16 Ht 172.7 cm (5' 7.99) Wt 75.8 kg (167 lb) SpO2 96% BMI 25.40 kg/m?? Pathology: 06/24/23 DIAGNOSIS A - Penile foreskin, excision: No evidence of high-grade dysplasia or malignancy. 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 C - Additional [...] Ennis Verified: 07/06/2023 11:48 Pathologist Performed at: -[facility] Dept. of Pathology, [place] [address] Museum Attendant: Corbin Doll MD, FCAP, CLIA Certificate: [id number] SYNOPTIC Specimen Procedure: Wide local excision of [...] Block(s): B3, B4, B6 Normal Block(s): N/A [facility] 2022 Q3 Release DISCUSSION The infiltrating [...] AST 18, ALT 28, Imagin08/15/23 PET scan: Report is pending, personally reviewed 06/21/23 PET scan: IMPRESSION 1. Makayla metastases in the left inguinal, left distal external iliac, and left anterior obturator regions. 2. No distant sites of metastasis. 3. The primary malignancy in the distal urethra is not evident on this exam, likely due to its small size and location. Assessment and Plan: Diagnosis:[id number] poorly diff penile cancer sp local excision [...] 7 total. No evidence of extra-makayla disease. This case was discussed on tumor [...] with blood work and chemotherapy teaching by BILINGUAL ACCOUNT MANAGER. 08/16/2023 PET scan: Report is pending, personally reviewed. I do not see any evidence of metastaticdisease but will wait for official report. We again discussed benefits and risk of chemotherapy with Mitomycin-C and 5-FU. All questions were answered to patient's satisfaction. Will arrange Mediport placement. He will see Dr. Peters on August 23. Will start chemotherapy on the first day of radiation. Plan: F/u with Dr. Garcia and Dr. Peters Mediport placement within a week Next visit with BILINGUAL ACCOUNT MANAGER for chemotherapy teaching on August 22 as scheduled Start chemotherapy on the first day of radiation Visit within a week after starting chemotherapy The plan was discussed with the patient in details. All questions were answered to patient's satisfaction. I would like to thank Shannan Arellano and Dr. Garcia for allowing me to participate in the care ofthipamela gonzalez documented in this encounter Plan of Treatment Upcoming Encounters Date Type Department Care Team (Late st Contact Info) Description 06/07/2024 1:00 PM EST TH Visit (TeleHealth) [place] [address] [facility] [place] [address] 06/11/2024 9:00 AM EST Office [place] [address] Espinoza, Caroline E, OT 07/10/2024 8:00 AM EST Office [place] [address] Espinoza, Caroline E, OT 07/24/2024 10:00 AM EST Office [place] [address] Espinoza, Caroline E, OT 08/07/2024 10:00 AM EST Office [place] [address] Espinoza, Caroline E, OT 08/21/2024 10:00 AM EST Office [place] [address] Espinoza, Caroline E, OT documented as of this encounter Results * IR Mediport Placement (08/25/2023 8:37 AM EST) Anatomical Region Laterality Modality X-Ray Angiograph y Narrative 08/25/2023 9:25 AM EST Interventional Radiology Procedure Note Procedure: Subcutaneous venous port implant Indication: Penile Cancer, durable penitentiary central venous access for chemotherapy Procedure summary: [...] Primary Malignant neoplasm of penis, part unspecified Penile cancer Malignant neoplasm of penis, part unspecified documented in this encounter Care Teams Staff Interpreter Relationship Specialty Start Date End Date Shannan Arellano, [employer] [address] [place] [address] PCP - General Family Medicine 02/03/23 documented as of this encounter
--- OUTSIDE RECORDS SUMMARY | 2024-06-04 17:30 | XMS_ITS | Encounter Summary ---
Author Organization [facility] Address [facility] [place] [address] Care Team Providers Care Business Employment Specialist Name Role Phone Shannan Arellano GAYLE Primary Care Provider Reason for Visit * Physical Therapy (Routine) - Authorized Specialty Diagnoses / Procedures Referred By Marry kelsey Referred To Contact Physical Therapy Diagnoses Penile cancer Zachary Garcia MD [facility] [place] [address] [facility] [place] [address] Referral ID Status Reason Start Date Expiration Date Visits Requested Visits Authorized [id number] Authorized Evaluate and Treat 05/17/2023 06/15/2024 100 100 Encounter Details Date Type Department Care Team (Late st Contact Info) Description 09/13/2023 9:00 AM EDT Office Visit [place] [address] Espinoza, Caroline E, OT Edema, unspecified type (Primary Dx) Social History Tobacco Use Types Packs/Day Years Used Date Smoking Tobacco: Never Smokeless Tobacco: Never Alcohol Use Standard Drinks/Week Comments Yes 1 (1 standard drink = 0.6 oz pur e alcohol) [facility] Utilities Answer Date Recorded In the past 12 months has [employer], gas, oil, or water company threatened to [...] - Therapy - Caroline Espinoza OT - 09/13/2023 9:00 AM EDTSummary: OT/CLT LE LYMPHEDEMA TREATMENT NOTE OT/CLT LE LYMPHEDEMA TREATMENT NOTE Date of Exam/First treatment: 05/31/23 Date of Onset 03/18/23 Referring Provider: Zachary Garcia MD Diagnosis and pertinent co-morbidities: Penile CA Primary Insurance: Payor: MEDICARE / Plan: MEDICARE PART A & B / Product Type: *No Product type* / Medicare Cert Period: 05/31/23- 08/29/23 08/29/33-11/28/23 Penile CA No past medical history on file. CURRENT HISTORY: Eduardo Contreras is a 73 y.o. male with h/o penile CA. Referred by DR. Garcia. Patient presents today with concerns of swelling/lymphedema with upcoming node resection. Educationdeficits regarding lymphedema risk post lymph node dissection and if radiation is planned. Referredfor compression wear for post op. 06/30/23 local excision of distal urethra with hypospadiac meatus, bilateral groin dissection. MRI show suspicious LEFT inguinal lymph nodes. Awaiting pathology report Pending discussion at tumor board Cystoscopy and biopsy on 05/09/23 Surgery on 06/24/22 for inguinal dissection and penile tumor resection. Patient continues on prophylactic ABX Plan for adjuvant chemo or radiation pending. Radiation mapping scheduled for next week. Treatment Diagnosis:Penile CA with Left inguinal lymph [...] ACTIVITY LEVEL: Active lifestyle and work. 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 PAIN: Occasional [...] mmHg footless. He finds these comfortable. Recs today for scrotal swell pad. Patient has been having mild/mod increase in scrotal swelling which has been waxing and waning. Reviewed again with patient for waxing/waning scrotal edema utilizingscrotal compression pads which he has at home. RECOMMENDED to patient to wear stretchy more [...] for self MLD as needed for edema / scrotal edema compression wear including instruction [...] post surgical radiation treatment. 08/16/23 goal met 5. Patient will be I with utilization of adjunct fluid management techniques: Rolling. Muscle pump HEP. Elevation 08/16/23 ongoing. Therapy Fdc Goals 12 weeks 1. Patient will demonstrate ability to maintain reduction in swelling utilizing all techniques taught. Discussed with patient CLT's closer to home which may be easier on him. They are considering. THERAPEUTIC INTERVENTIONS UTILIZED TODAY: Review education and training for MLD sequence including deep diaphragmatic breathing and deep abdominal lymph node drainage. Full MLD sequence. Edema responds well with increase in comfort reported by patient. Reviewed need for scrotal swell pack. Reviewed importance of wearing regularly, Reviewed not wearing damon jeans as they are too heavy and rub against incision. Discussed breathable stretchy athletic wear. Patient and spouse verbalize understanding. Negative pressure work over inguinal scarring for [...] management techniques Charges Minutes OT EVAL LOW (02219) OT EVAL MOD (97939) OT EVAL HIGH (84474) MANUAL THERAPY(45642) 45 SELF CARE/HOME MANAGEMENT (73498) 15 THERAPEUTIC/FUNCTIONAL ACTIVITIES(86590) THEREX NEUROMUSCULAR BINA(59731) THEREX: STRENGTH ROM (87661) Caroline Espinoza OT/CLT documented in this encounter Plan of Treatment Upcoming Encounters Date Type Department Care Team (Late st Contact Info) Description 06/07/2024 1:00 PM EST TH Visit (TeleHealth) [place] [address] Zachary Garcia MD [facility] [place] [address] 06/11/2024 9:00 AM EST Office Visit Occup[place] [address] Espinoza, Caroline E, OT 07/10/2024 8:00 AM EST Office Visit [place] [address] Espinoza, Caroline E, OT 07/24/2024 10:00 AM EST Office Visit [place] [address] Espinoza, Caroline E, OT 08/07/2024 10:00 AM EST Office Visit [place] [address] Espinoza, Caroline E, OT 08/21/2024 10:00 AM EST Office Visit [place] [address] Espinoza, Caroline E, OT documented as of this encounter Procedures Procedure Name Priority Date/Time Associated Diagnosis Comments OT PLAN OF CARE CERT/RE-CERT Routine 09/13/2023 10:00 AM EDT Edema, unspecified type documented in this encounter Visit Diagnoses Diagnosis Edema, unspecified type- Primary documented in this encounter Care Teams Business Employment Specialist Relationship Specialty Start Date End Date Shannan Arellano, TABLET [employer] [address] PCP - General Family Medicine 02/03/23 documented as of this encounter
--- OUTSIDE RECORDS SUMMARY | 2024-06-04 17:30 | XMS_ITS | Encounter Summary ---
Author Organization [facility] Address [facility] [place] [address] Care Team Providers Care Kiln Hand Name Role Phone Shannan Arellano APRN Primary Care Provider [phone] Encounter Details Date Type Department Care Team (Latest Contact Info) Description 09/08/2023 Travel Social History Tobacco Use Types Packs/Day Years Used Date Smoking Tobacco: Never Smokeless Tobacco: Never Alcohol Use Standard Drinks/Week Comments Yes 1 (1 standard drink = 0.6 oz pur e alcohol) [facility] Utilities Answer Date Recorded In the past 12 months has th e electric, gas, oil, or water [employer] threatened to shut off services in your [...] PM EST TH Visit (TeleHealth) [place] [address] Zachary Garcia MD [facility] [place] [address] 06/11/2024 9:00 AM EST Office [place] [address] EspinozaTia de la torreyl E, OT 07/10/2024 8:00 AM EST Office [place] [address] Espinoza, Caroline E, OT 07/24/2024 10:00 AM EST Office [place] [address] Espinoza, Caroline E, OT 08/07/2024 10:00 AM EST Office [place] [address] Espinoza, Caroline E, OT 08/21/2024 10:00 AM EST Office [place] [address] Caroline Espinoza, OT documented as of this encounter Visit Diagnoses Not on filedocumented in this encounter Care Teams Kiln Hand Relationship Specialty Start Date End Date Shannan Arellano, [employer] [place] [address] PCP - General Family Medicine 02/03/23 documented as of this encounter
--- OUTSIDE RECORDS SUMMARY | 2024-06-04 17:30 | XMS_ITS | Encounter Summary ---
Author Organization [facility] Address [facility] [place] [id number] Care Team Providers Care Curriculum Consultant Name Role Phone Shannan Arellano APRN Primary Care Provider [phone] Encounter Details Date Type Department Care Team (Late st Contact Info) Description 09/06/2023 3:00 PM EDT Infusion Hematology Oncology at [address] [phone] Penile cancer Social History Tobacco Use Types Packs/Day Years Used Date Smoking Tobacco: Never Smokeless Tobacco: Never Alcohol Use Standard Drinks/Week Comments Yes 1 (1 standard drink = 0.6 oz pur e alcohol) [facility] Utilities Answer Date Recorded In the past [...] Sign Reading Time Taken Comments Blood Pressure 115/66 09/06/2023 3:01 PM EDT Pulse 62 09/06/2023 3:01 PM EDT Temperature 36.3 ??C (97.4 ??F) 09/06/2023 3:01 PM ED T Respiratory Rate 18 09/06/2023 3:01 PM EDT Oxygen Saturation 97% 09/06/2023 3:01 PM EDT Inhaled Oxygen Concentration - - Weight 74.5 kg (164 lb 3.2 oz) 09/06/2023 3:01 P M EDT Height 172.7 cm (5' 7.99) 09/06/2023 3:01 PM ED T Body Mass Index 24.97 09/06/2023 3:01 PM EDT documented in this encounter Progress Notes * Catherine No RN - 09/06/2023 3:00 PM EDT INFUSION THERAPY ADMINISTRATION NOTES DIAGNOSIS: Penile CYCLE #: C1D1 REASON FOR VISIT: Mitomycin + initiation of 5FU continuous home infusion via CADD pump. SUBJECTIVE Eduardo offers no complaints. OBJECTIVE LAB DATA: completed 08/[address] [facility] Pre administration: Chemotherapy orders independently verified for drug name, route, and dosage per patient's height, weight and BSA by Catherine No RN and staff pharmacists REACTIONS (DESCRIPTION, TIME, INTERVENTION AND EFFECTIVENESS) none ASSESSMENT Eduardo was awake, alert and he tolerated treatment well. Pt. chemo teaching instructions included: During clinic hours (8am-5pm Tuesday-Tuesday): pt. can call [phone] with questions or concerns. After clinic hours (5pm-8am Tuesday-Tuesday and weekends) pt can call [phone] and ask for the defect cutter/oncologist auto phone installer. Eduardo Contreras verbalized understanding of potential chemotherapy side effects and home care including but not limited to- handwashing to prevent infection, signs and symptoms of low blood counts (fever, fatigue, bleeding), to call with a fever of 100.4 or greater, any significant constipation/diarrhea, importance of nutrition and fluid intake (drinking at least 32-64 ounces of non-caffeinated beverages/day), mouth care. Eduardo Contreras verbalized understanding of how to take prescription medications given for home use after chemotherapy. PLAN Disconnect at [facility] on 09/10 at4:30pm. documented in this encounter Plan of Treatment Upcoming Encounters Date Type Department Care Team (Late st Contact Info) Description 06/07/2024 1:00 PM EST TH Visit (TeleHealth) [place] [address] Zachary Garcia MD [facility] [place] [address] 06/11/2024 9:00 AM EST Office Visit [place] [address] Caroline Espinoza, OT 07/10/2024 8:00 AM EST Office Visit [place] [address] Caroline Espinoza, OT 07/24/2024 10:00 AM EST Office Visit [place] [address] Caroline Espinoza, OT 08/07/2024 10:00 AM EST Office Visit [place] [address] Caroline Espinoza, OT 08/21/2024 10:00 AM EST Office Visit [place] [address] Caroline Espinoza, OT documented as of this [...] Recorded weight), Intravenous, ONCE, 1 dose, On Tue09/06/23 at 1700, Administer over 120 Hours, Warning Vesicant/Irritant Medication To be infused via an ambulatory infusion CADD Roland pump continuously IV at 3 mL/hr for 120 hours (5 days). Pump contains a 5 day supply and provides a daily dose of 500 mg/m2/day = 2,500 mg/m2 IV over 5 days. Given 09/06/2023 4:27 PM EDT 4,775 mg 3 m L/hr mitoMYcin (Mutamycin) (0.5 mg/mL) injection solution 22.9 mg 22.9 mg (rounded from 22.92 mg = 12 mg/m2/dose ? 1.91 m2 Treatment Plan BSA from Recorded weight), Intravenous, ONCE, 1 dose, On Tue09/06/23 at 1700, Administer each syringe over a minimum of 5 minutes. Warning Vesicant/Irritant Medication Given 09/06/2023 4:07 PM EDT 22.9 mg ondansetron (Zofran) tablet 8 mg 8 mg, Oral, ONCE, 1 dose, On Tue09/06/23 at 1600, Administer prior to chemotherapy, Routine Given 09/06/2023 3:46 PM EDT 8 mg documented in this encounter Care Teams Curriculum Consultant Relationship Specialty Start Date End Date Shannan Arellano APRN [address] [place] [address] PCP - General Family Medicine 02/03/23 documented as of this encounter
--- OUTSIDE RECORDS SUMMARY | 2024-06-04 17:30 | XMS_ITS | Encounter Summary ---
Author Organization [facility] Address [facility] [address] Care Team Providers Care Adult Secondary Education Instructor Name Role Phone Shannan Arellano GAYLE Primary Care Provider [phone] Reason for Visit * Physical Therapy (Routine) - Authorized Specialty Diagnoses / Procedures Referred By Marry kelsey Referred To Contact Physical Therapy Diagnoses Penile cancer Zachary Garcia MD [facility] [place] [address] [facility] [place] [address] Referral ID Status Reason Start Date Expiration Date Visits Requested Visits Authorized [id number] Authorized Evaluate and Treat 05/17/2023 06/15/2024 100 100 Encounter Details Date Type Department Care Team (Late st Contact Info) Description 08/16/2023 9:00 AM EST Office [place] [address] Espinoza, Caroline E, OT Edema, unspecified type Social History Tobacco Use Types Packs/Day Years Used Date Smoking Tobacco: Never Smokeless Tobacco: Never Alcohol Use Standard Drinks/Week Comments Yes 1 (1 standard drink = 0.6 oz pur e alcohol) [facility] Utilities Answer Date Recorded In [...] of this encounter Progress Notes * Caroline Espinoza, OT - 08/16/2023 9:00 AM ESTSummary: OT/CLT LE LYMPHEDEMA PROGRESS NOTE OT/CLT LE [...] ACTIVITY LEVEL: Active lifestyle and work. 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 PAIN: Occasional [...] 07/07/23 LEFT 07/07/23 RIGHT 08/16/23 Left 08/16/23 Mid foot 22.8 23.2 23.3 23.1 22.5 23.6 Ankle 25.4 24 22.8 22.6 24 24.1 Calf 33 35.3 35 35.3 31.7 34.8 D 32.3 31.8 32.5 32 33.5 33 Knee 35.7 35.5 35.7 36.2 36.8 37.2 Knee +12 45.3 46.8 41.5 45.6 46.7 47 Upper thigh G 55 53.4 52.3 57 51.2 52 A-D Length 38 A-G Length 75 32 [...] Reviewed again with patient for waxing/waning scrotal edema. RECOMMENDED to patient to wear stretchy more [...] Muscle pump HEP. Elevation 08/16/23 ongoing. Therapy Usp Goals 12 weeks 1. Patient will demonstrate ability to maintain reduction in swelling utilizing all techniques taught. Patient seen today for progress visit. Patient continues to work on goals as denoted above. . OT/CLT services to continue per POC. Patient is in agreement with plan as stated. Patient does have long drive to get here . Discussed with patient CLT's closer to home which may be easier on him. They areconsidering. THERAPEUTIC INTERVENTIONS UTILIZED TODAY: Review education and training for MLD sequence including deep diaphragmatic breathing and deep abdominal lymph node drainage. Full MLD sequence. Edema responds well with increase in comfort reported by patient. Reviewed need for scrotal swell pack. Reviewed info on procuring. Reviewed not wearing damon jeans as they are too heavy and rub against incision. Discussed breathable stretchy athletic wear. Patient and spouse verbalize understanding. PLAN: OT/CLT SERVICES 2x/ month x 2 months. Adding or tapering visits as needed. Treatment: manual lymphatic drainage compression bandaging if indicated Exercise- muscle pump HEP teaching self care garment fitting- Bioflex Orly and Jobst compression shorts. Patient alternates. Patient has information on ordering scrotal swell pack to minimize scrotal edema. Patient is also doing wel lwith Jobst relax 15-20 mmHg tights. May benefit from 20-30 compression. Reviewed with patient today. Adjunct fluid management techniques Charges Minutes OT EVAL LOW (91076) OT EVAL MOD (40211) OT EVAL HIGH (75012) MANUAL THERAPY(65958) 45 SELF CARE/HOME MANAGEMENT (34889) 15 THERAPEUTIC/FUNCTIONAL ACTIVITIES(64405) THEREX NEUROMUSCULAR BINA(62703) THEREX: STRENGTH ROM (94445) Caroline Espinoza OT/CLT documented in this encounter Plan of Treatment Upcoming Encounters Date Type Department Care Team (Late st Contact Info) Description 06/07/2024 1:00 PM EST TH Visit (TeleHealth) [place] [address] Zachary Garcia MD [facility] [place] [address] 06/11/2024 9:00 AM EST Office [place] [address] Espinoza, Caroline E, OT 07/10/2024 8:00 AM EST Office [place] [address] Espinoza, Caroline E, OT 07/24/2024 10:00 AM EST Office [place] [address] Espinoza, Caroline E, OT 08/07/2024 10:00 AM EST Office [place] [address] Espinoza, Caroline E, OT 08/21/2024 10:00 AM EST Office [place] [address] Espinoza, Caroline E, OT documented as of this encounter Visit Diagnoses Diagnosis Edema, unspecified type documented in this encounter Care Teams Adult Secondary Education Instructor Relationship Specialty Start Date End Date Shannan Arellano, CYCLE ANALYST [employer] [facility] [place] [address] PCP - General Family Medicine 02/03/23 documented as of this encounter
--- OUTSIDE RECORDS SUMMARY | 2024-06-04 17:31 | XMS_ITS | Encounter Summary ---
Author Organization [facility] Address [facility] [address] Care Team Providers Care Workforce Analyst Name Role Phone Shannan Arellano APRN Primary Care Provider [phone] Encounter Details Date Type Department Care Team (Late st Contact Info) Description 06/27/2023 Telephone [place] [id number] Zo Arboleda, RN Social History Tobacco Use [...] Telephone Encounter - Zo Arboleda RN - 06/27/2023 12:21 PM EST Call returned to patient, reviewed discharge plan per Dr. Garcia on 06/22/23: Plan: - Keflex ppx until drains come out at f/u - Start Eliquis 5mg BID on Wednesday 06/28 - F/u with Dr. Garcia in 1-2 weeks (requested, please call if you do not hear regarding this appointment) - Biker shorts until f/u - Avoid sitting straight up, sit in recliner or lay down until f/u Follow up scheduled with in requested time frame. * Telephone Encounter - Zo Arboleda RN - 06/27/2023 12:19 PM EST Copied from [facility] #[id number]. Topic: Specialty Dept CRMs - Triage >> Jun 27, 2023 10:52 AM Carolyn House wrote: Triage Message Specialist: Dr. Garcia Relationship (if other than patient-full name): Sylvie Symptom: See signed encounter from today. Drain is leaking, upper leg swelling Has patient experienced symptom before no If patient has experienced symptom before, when was the last time this occurred Is patient currently having symptom Yes When did symptom begin After surgery on 06.24.23 Additional Comments: Sylvie states Dr. Garcia wants to see the patient once per week, but is not scheduled until 07.07.23. Can be reached at [phone]. said patient does not always remember phone calls. documented in this encounter Plan of Treatment Upcoming Encounters Date Type Department Care Team (Late st Contact Info) Description 06/07/2024 1:00 PM EST TH Visit (TeleHealth) [place] [address] Zachary Garcia MD [facility] [place] [address] 06/11/2024 9:00 AM EST Office Visit [place] [address] Caroline Espinoza OT 07/10/2024 8:00 AM EST Office Visit [place] [address] Caroline Espinoza OT 07/24/2024 10:00 AM EST Office Visit [place] [address] Caroline Espinoza, OT 08/07/2024 10:00 AM EST Office Visit [place] [address] EspinozaTia santiagoyl E, OT 08/21/2024 10:00 AM EST Office Visit [place] [address] EspinozaCaroline de la torre E, OT documented as of this encounter Visit Diagnoses Not on filedocumented in this encounter Care Teams Workforce Analyst Relationship Specialty Start Date End Date Shannan Arellano, FUNERAL [place] [address] PCP - General Family Medicine 02/03/23 documented as of this encounter
--- OUTSIDE RECORDS SUMMARY | 2024-06-04 17:31 | XMS_ITS | Encounter Summary ---
Author Organization [facility] Address [facility] [address] Care Team Providers Care Opening Machine Cleaner Name Role Phone Shannan Arellano APRN Primary Care Provider [phone] Encounter Details Date Type Department Care Team (Late st Contact Info) Description 07/14/2023 Multidisciplinary Ca re Committee [place] [id number] Maury Loyd MD [facility] [place] [address] Social History Tobacco Use Types Packs/Day Years Used Date Smoking Tobacco: Never Smokeless Tobacco: Never Alcohol Use Standard Drinks/Week Comments Yes 1 (1 standard drink = 0.6 oz pur e alcohol) [facility] Inpatient Questions Answer Date Recorded Does Anyone [...] as of this encounter Progress Notes * Maury Loyd MD - 07/14/2023 4:40 PM EST Presented at Tumor board 07/14/2023 Specialities Present: Pathology Radiology Urologic Oncology Radiation Oncology Medical Oncology Patient clinical information reviewed Recent radiological studies reviewed Recent pathology reviewed Brief history Eduardo Contreras is a 73 y.o. 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 Also has PET CT scan for staging. Presented for evaluation of need for adjuvant treatment. Discussion Radiology: Positive left inguinal and left [...] chemoRT with treatment of the surgical bed. documented in this encounter Plan of Treatment Upcoming Encounters Date Type Department Care Team (Late st Contact Info) Description 06/07/2024 1:00 PM EST TH Visit (TeleHealth) [place] [address] Zachary Garcia MD [facility] [place] [address] 06/11/2024 9:00 AM EST Office Visit Occup[place] [address] Caroline Espinoza, OT 07/10/2024 8:00 AM EST Office Visit [place] [address] Tia Espinozayl E, OT 07/24/2024 10:00 AM EST Office Visit [place] [address] Tia Espinozayl E, OT 08/07/2024 10:00 AM EST Office Visit Occup[place] [address] Tia Espinozayl E, OT 08/21/2024 10:00 AM EST Office Visit Occup[place] [address] Espinoza, Caroline E, OT documented as of this encounter Visit Diagnoses Not on filedocumented in this encounter Care Teams Opening Machine Cleaner Relationship Specialty Start Date End Date Shannan Arellano, WELDER EXPERIMENTAL [facility] [address] PCP - General Family Medicine 02/03/23 documented as of this encounter
--- OUTSIDE RECORDS SUMMARY | 2024-06-04 17:31 | XMS_ITS | Encounter Summary ---
Author Organization [facility] Address [facility] [place] [address] Care Team Providers Care Shift Supervisor Name Role Phone Shannan Arellano APRN Primary Care Provider [phone] Encounter Details Date Type Department Care Team (Latest Contact Info) Description 07/07/2023 Travel Social History Tobacco Use Types Packs/Day [...] PM EST TH Visit (TeleHealth) [place] [address] Zachary Garcia MD [facility] [address] 06/11/2024 9:00 AM EST Office [place] [address] Caroline Espinoza OT 07/10/2024 8:00 AM EST Office [place] [address] Espinoza, Caroline E, OT 07/24/2024 10:00 AM EST Office [place] [address] Espinoza, Caroline E, OT 08/07/2024 10:00 AM EST Office [place] [address] Espinoza, Caroline E, OT 08/21/2024 10:00 AM EST Office [place] [address] Espinoza, Caroline E, OT documented as of this encounter Visit Diagnoses Not on filedocumented in this encounter Care Teams Shift Supervisor Relationship Specialty Start Date End Date Shannan Arellano, AUTOMOBILES SALESPERSON [place] [place] [address] PCP - General Family Medicine 02/03/23 documented as of this encounter
--- OUTSIDE RECORDS SUMMARY | 2024-06-04 17:31 | XMS_ITS | Encounter Summary ---
Author Organization [facility] Address [facility] [place] [address] Care Team Providers Care Engineering Design Manager Name Role Phone Shannan Arellano APRN Primary Care Provider [phone] Encounter Details Date Type Department Care Team (Late st Contact Info) Description 06/27/2023 [place] [phone] Maury Loyd MD [facility] [place] [address] Social History Tobacco Use Types Packs/Day Years Used Date Smoking Tobacco: Never Smokeless Tobacco: Never Alcohol Use Standard Drinks/Week Comments Yes 1 (1 standard drink = 0.6 oz pur e alcohol) [facility] Inpatient Questions Answer Date Recorded Does [...] Progress Notes * Zo Arboleda RN - 06/27/2023 8:26 AM EST Message sent to urology resident motor vehicle or caravan salesperson. Patient is s/p partial penectomy and lymph node dissection on 06/24/[address] Garcia, discharged yesterday. documented in this encounter Miscellaneous Notes * Telephone Encounter - Maury Loyd MD - 06/27/2023 8:42 AM EST Patient's and daughter called with concern that his QUANG drain is no longer draining through thebulb but has drainage alongside the tubing. We discussed that they can milk the drain to help it drain better and can also reinforce the area around the drain with gauze so that there is no leakage. They state there is no redness to the area or purulence of the output. * Telephone Encounter - Zo Arboleda RN - 06/27/2023 8:25 AM EST Copied from [facility] #[id number]. Topic: Specialty Dept CRMs - Triage >> Jun 27, 2023 8:04 AM Evelyne Brown wrote: Triage Message Specialist: Radha Relationship (if other than patient-full name): Kate Contreras - Symptom: Drain insertion site leaking, no output in quang drain Has patient experienced symptom before no If patient has experienced symptom before, when was the last time this occurred NA Is patient currently having symptom yes When did symptom begin unknown Additional Comments: Kate calling stating that the patient's drain insertion site on his left thigh is leaking, and there is no output in his quang drain. Please see surgery from 06/24/23. documented in this encounter Plan of Treatment Upcoming Encounters Date Type Department Care Team (Late st Contact Info) Description 06/07/2024 1:00 PM EST TH Visit (TeleHealth) [place] [address] Zachary Garcia MD [facility] [place] [address] 06/11/2024 9:00 AM EST Office [place] [address] Espinoza, Caroline E, OT 07/10/2024 8:00 AM EST Office [place] [address] Espinoza, Caroline E, OT 07/24/2024 10:00 AM EST Office [place] [address] Espinoza, Caroline E, OT 08/07/2024 10:00 AM EST Office [place] [address] Espinoza, Caroline E, OT 08/21/2024 10:00 AM EST Office [place] [address] Espinoza, Caroline E, OT documented as of this encounter Visit Diagnoses Not on filedocumented in this encounter Care Teams Engineering Design Manager Relationship Specialty Start Date End Date Shannan Arellano, COLOR PRINTER OPERATOR [facility] [place] [address] PCP - General Family Medicine 02/03/23 documented as of this encounter
--- OUTSIDE RECORDS SUMMARY | 2024-06-04 17:31 | XMS_ITS | Encounter Summary ---
Author Organization [facility] Address [facility] [place] [address] Care Team Providers Care Supervisor Quality Control Name Role Phone Shannan Arellano GAYLE Primary Care Provider [phone] Reason for Visit * Consultation (Routine) - Closed Specialty Diagnoses / Procedures Referred By Marry kelsey Referred To Contact Hematology and Oncology Diagnoses Penis cancer Zachary Garcia MD [facility] [place] [address] St Hem Onc Office [address] [place] [phone] Referral ID Status Reason Start Date Expiration Date V isits Requested Visits Authorized [id number] Closed Consult, Test & Treat 07/15/2023 07/14/2024 1 1 Encounter Details Date Type Department Care Team (Late st Contact Info) Description 07/26/2023 4:00 PM EST Office Visit Hematology/Oncology at [address] [phone] Olivier Obrien MD [facility] [place] [address] Penile cancer (Primary Dx) Social History Tobacco [...] Sign Reading Time Taken Comments Blood Pressure 112/70 07/26/2023 3:54 PM EST Pulse 69 07/26/2023 3:54 PM EST Temperature 36 ??C (96.8 ??F) 07/26/2023 3:54 PM EST Respiratory Rate 16 07/26/2023 3:54 PM EST Oxygen Saturation 96% 07/26/2023 3:54 PM EST Inhaled Oxygen Concentration - - Weight 71.7 kg (158 lb) 07/26/2023 3:54 PM EST Height 172.7 cm (5' 8) 07/26/2023 3:54 PM EST Body Mass Index 24.02 07/26/2023 3:54 PM EST documented in this encounter Progress Notes * Nathalia Melton, RN - 07/26/2023 4:00 PM EST . [facility] Patient Medical Oncology Note SOCIAL ASSESSMENT: See [facility] social assessment information entered. 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 [ x] yes [ ] no Local Pharmacy: [facility] in [place], [place] FUNCTIONAL SCREENING: Balance difficulty: [ x ]no [ ]yes At risk for fall: [ x ] no [ ] yes If yes, actions implemented to prevent fall. Patient/family instructed to avoid independent ambulation. Use wheelchair and ask for assistance of staff while in the clinic. ADL [ x ] no limits [ ] needs dressing assistance [ ] needs meal assistance Assistive device:[ x ]none [ ]cane [ ]walker [ ]wheelchair [ ]other: explain PAIN ASSESSMENT: [ 0] out of 10 Location: Description: [ ] Dull [ ] Sharp [ ] Burning [ ] Throbbing [ ] Radiating [ ] Continuous [ ] Intermittent Aggravating Factors: [ ] Movement [ ] Position [ ] Immobility [ ] Other Alleviating Factors: [ ] Medication [ ] Positioning [ ] Other Current Pain Management Plan: [ ] Satisfied [ ] Not satisfied LEARNING STYLE: Learning Needs Assessment up to date (yearly) [ ] TEACHING: _x_ Specific chemotherapy literature provided and reviewed with patient mitomycin and fluorouracil VASCULAR ACCESS ASSESSMENT: getting chemo? [ x ]yes [ ]no Need port? [x ] yes [ ] no * Olivier Obrien MD - 07/26/2023 4:00 PM EST Images from the original note were not included. Diagnosis: CC:I feel okay HPI:Eduardo Contreras is 73 [...] dissection Left lap pelvic node dissection Path: [id number] poorly differentiated penile cancer 4/10 Left inguinal and 3/13 Left pelvic nodes. 0/8 Right nodes. 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 The patient has been for 30 yearswith 6 children (between them) . The patient drinks occasionally Family History: Noncontributory Allergies: No Known Allergies Medications: Your Medications Accurate as of July 26, 2023 5:38 PM. If you have any questions, ask your nurse or doctor. Continued medications, unchanged Dose Details apixaban 5 mg tablet Commonly known as: Eliquis Take 1 tablet by mouth 2 times daily for 30 days. Starting Jun 28, 2023. 5mg twice a day 5 mg Quantity: 60 tablet Refills: 0 levoFLOXacin 500 mg tablet Commonly known as: Levaquin Take 1 tablet by mouth daily. 500 mg Quantity: 5 tablet Refills: 0 oxyCODONE 5 mg tablet Commonly known as: Roxicodone Take 1 tablet by mouth every 4 hours as needed for Pain (for severe pain not controlled by tylenol/ibuprofen). 5 mg Quantity: 5 tablet Refills: 0 d Review of Systems: Constitutional: Negative for fever, chills, activity change, fatigue and unexpected weight change. HEENT: Negative for sore throat, mouth sores and trouble swallowing. Eyes: Negative. Respiratory: Negative for cough, shortness of breath and wheezing. Cardiovascular: Negative [...] deficits. Psych: Conversant, normal mood and affect. Pathology: 06/24/23 DIAGNOSIS A - Penile foreskin, excision: No evidence of high-grade dysplasia or malignancy. 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 C - Additional [...] Ennis Verified: 07/06/2023 11:48 Pathologist Performed at: -[facility] [place] [facility] [place], [place] [address] [employer] Architect: Corbin Doll MD, FCAP, CLIA Certificate: [id number] SYNOPTIC Specimen Procedure: Wide local excision of [...] Block(s): B3, B4, B6 Normal Block(s): N/A [facility] 2022 Q3 Release DISCUSSION The [...] clear cell, lymphoepithelioma-like, or medullary subtypes). Labs: Latest Reference Range & Units 07/21/23 01:09 WBC 4.0 - 9.5 x10(3)/mcL 9.1 RBC 4.58 - 5.54 x10(6)/mcL 4.00 (L) Hemoglobin 13.7 - 16.5 g/dL 12.2 (L) Hematocrit 40.5 - 48.5 % 35.4 (L) MCV 82.9 - 93.1 fL 88.5 MCH 27.5 - 32.1 pg 30.5 MCHC 32.0 - 35.7 g/dL 34.5 RDWSD 36.0 - 45.0 fL 39.0 RDWCV 11.4 - 13.8 % 12.0 Platelets 145 - 357 x10(3)/mcL 169 MPV 7.6 - 12.9 fL 9.8 nRBC % Auto % 0.0 nRBC Abs Auto 0.000 - 0.000 x10(3)/mcL 0.000 Neutr Abs (ANC) 1.70 - 6.10 x10(3)/mcL 6.19 (H) Neutrophils % % 68.2 Immature Gran % % 0.40 Lymphocytes % % 20.7 Monocytes % % 8.0 Eosinophils % % 2.1 Basophils % % 0.6 Honey Gran Abs 0.00 - 0.04 x10(3)/mcL 0.04 Lymphocytes Abs 0.9 - 3.2 x10(3)/mcL 1.9 Monocyte Abs 0.3 - 0.9 x10(3)/mcL 0.7 Eosinophils Abs 0.0 - 0.4 x10(3)/mcL 0.2 Basophils Abs 0.0 - 0.1 x10(3)/mcL 0.0 Sodium 135 - 145 mmol/L 138 Potassium 3.5 - 5.0 mmol/L 4.3 Chloride 98 - 107 mmol/L 105 CO2 22 - 31 mmol/L 24 Anion Gap 5 - 15 mmol/L 9 BUN 10 - 20 mg/dL 16 Creatinine 0.80 - 1.50 mg/dL 1.02 Estimated GFR >=60 mL/min/1.73 m?? 78 Calcium 8.5 - 10.5 mg/dL 8.0 (L) Magnesium 0.69 - 1.07 mmol/L 0.91 Phosphorus 2.5 - 4.5 mg/dL 3.4 Glucose Lvl 65 - 199 mg/dL 132 (L): Data is abnormally low (H): Data is abnormally high Imagin06/21/23 PET scan: IMPRESSION 1. Makayla metastases in the left inguinal, left distal external iliac, and left anterior obturator regions. 2. No distant sites of metastasis. 3. The primary malignancy in the distal urethra is not evident on this exam, likely due to its small size and location. Assessment and Plan: Diagnosis:[id number] poorly diff penile cancer sp local excision and bilateral node dissection. LN /31 positive, 4/10 left inguinal lymph nodes with [...] with blood work and chemotherapy teaching by TEXTILE SCIENCE TECHNICIAN. Plan: F/u with Dr. Garcia and Dr. Peters Next visit with TEXTILE SCIENCE TECHNICIAN for chemotherapy teaching with CBC, cMP, in 4 weeks The plan was discussed with the patient in details. All questions were answered to patient's satisfaction. I would like to thank Shannan Arellano and Dr. Garcia for allowing me to participate in the care ofthis kirsten gentleman documented in this encounter Plan of Treatment Upcoming Encounters Date Type Department Care Team (Late st Contact Info) Description 06/07/2024 1:00 PM EST TH Visit (TeleHealth) [place] [address] Zachary Garcia MD [facility] [place] [address] 06/11/2024 9:00 AM EST Office Visit [place] [address] Caroline Espinoza, OT 07/10/2024 8:00 AM EST Office [place] [address] Caroline Espinoza, OT 07/24/2024 10:00 AM EST Office [place] [address] Caroline Espinoza, OT 08/07/2024 10:00 AM EST Office [place] [address] Caroline Espinoza OT 08/21/2024 10:00 AM EST Office [place] [phone] Caroline Espinoza OT Scheduled Orders Name Type Priority Associated Diagnoses Orde r Schedule CBC (with Diff) Lab Routine Penile cancer As Needed for 4 Occurrences starting 07/26/2023 until 07/26/2024 documented as of this encounter Visit Diagnoses Diagnosis Penile cancer- Primary Malignant neoplasm of penis, part unspecified documented in this encounter Care Teams Supervisor Quality Control Relationship Specialty Start Date End Date Shannan Arellano, PHYSIC[place] [address] PCP - General Family Medicine 02/03/23 documented as of this encounter
--- OUTSIDE RECORDS SUMMARY | 2024-06-04 17:31 | XMS_ITS | Encounter Summary ---
Author Organization [facility] Address [facility] [address] Care Team Providers Care Sample Card Maker Name Role Phone Shannan Arellano APRN Primary Care Provider Encounter Details Date Type Department Care Team (Late st Contact Info) Description 07/19/2023 Telephone [place] [phone] Zana Scott MD [facility] [place] [address] Social History Tobacco Use Types Packs/Day Years [...] encounter Miscellaneous Notes * Telephone Encounter - Zana Scott MD - 07/19/2023 10:39 AM EST Patient is having vomiting as well as increased swelling on the left as well as malaise and chills following a BL inguinal LND as well as left pelvic LND. Still has bilateral drains in. Left drain turned a bit pink this AM but volumes have not appreciably changed. Given malaise, chills, vomiting and swelling I think it is best if he go the ED for evalluation. documented in this encounter Plan of Treatment Upcoming Encounters Date Type Department Care Team (Late st Contact Info) Description 06/07/2024 1:00 PM EST TH Visit (TeleHealth) [place] [address] Zachary Garcia MD [facility] [place] [address] 06/11/2024 9:00 AM EST Office [place] [address] Espinoza, Caroline E, OT 07/10/2024 8:00 AM EST Office [place] [address] Espinoza, Caroline E, OT 07/24/2024 10:00 AM EST Office [place] [address] Espinoza, Caroline E, OT 08/07/2024 10:00 AM EST Office [place] [address] Espinoza, Caroline E, OT 08/21/2024 10:00 AM EST Office [place] [address] Espinoza, Caroline E, OT documented as of this encounter Visit Diagnoses Not on filedocumented in this encounter Care Teams Sample Card Maker Relationship Specialty Start Date End Date Shann[place] [address] PCP - General Family Medicine 02/03/23 documented as of this encounter
--- OUTSIDE RECORDS SUMMARY | 2024-06-04 17:31 | XMS_ITS | Encounter Summary ---
Author Organization Formerly [facility] [place] [address] Care Team Providers Care Mine Exploration Engineer Name Role Phone Shannan Arellano APRN Primary Care Provider [phone] Reason for Visit * Reason Comments Post-op Problem * Auth/Cert (Routine) Specialty Diagnoses / Procedures Referred By Marry kelsey Referred To Contact Diagnoses Intra-abdominal fluid collection Zachary Garcia MD [facility] [address] [place] [id number] [facility] Referral ID Status Reason Start Date Expiration Date Visits Re quested Visits Authorized [id number] 1 1 Encounter Details Date Type Department Care Team (Latest Contact Info) Description 07/19/2023 2:04 PM EST - 07/21/2023 3:58 PM EST Hospital Encounter [place] [id number] Manjula Desai MD [facility] [place] [address] Zachary Garcia MD [facility] [place] [place] [address] Intra-abdominal fluid collection (Primary Dx); Penile cancer; QT prolongation Discharge Disposition: Home Social History Tobacco Use Types Packs/Day Years Used Date Smoking Tobacco: Never Smokeless Tobacco: Never Alcohol Use Standard Drinks/Week Comments Yes 1 (1 standard drink = 0.6 oz pur e alcohol) [facility] Inpatient Questions Answer Date Recorded Does [...] Sign Reading Time Taken Comments Blood Pressure 121/83 07/21/2023 11:58 AM EST Pulse 68 07/20/2023 1:15 PM EST Temperature 36.9 ??C (98.4 ??F) 07/21/2023 11:[address] Respiratory Rate 16 07/21/2023 11:58 AM EST Oxygen Saturation 96% 07/21/2023 11:58 AM EST Inhaled Oxygen Concentration - - Weight - - Height - - Body Mass Index - - documented in this encounter Discharge Summaries * Nahomy Pugh PA - 07/21/2023 2:19 PM EST Images from the original note were not included. Discharge Summary Patient Name: Eduardo Contreras Patient Age: 73 y.o. Language: Cymraes Race: White Ethnicity: Not nor Admit date: 07/19/2023 Discharge date: 07/21/2023 Attending Physician: Zachary Garcia MD Discharge Diagnoses (Hospital Problems) and Secondary Diagnoses (Chronic Problems): Active Hospital Problems Diagnosis Intra-abdominal fluid collection Surgical site infection Penile cancer Resolved Hospital Problems No resolved problems to display. There are no active non-hospital problems to display for this patient. Operations/Major Procedures: IR drains placed in each thigh 07/20/23 History of Presentation: (from urology consult note 07/19) Eduardo Contreras is a 73 y.o. 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 He has bilateral inguinal drain after procedure. Patient was last seen by Dr. Garcia on 07/15 and was doing well at the time and until today. Patients presents to ED today due to increase redness of surgical site, N/V, subjective chills and draininage pinkish fluid from the drain. His drain culture from 06/30 was NG. Output is about 180ml/day. He is still on Keflex 250 mg QD. Patient has been urinating without dysuria or hematuria. Hospital Course: Patient was admitted to [facility] for the above-stated reasons and had 2 drains placed by interventionalradiology on 07/20/2023. HD1 (07/19): Admitted to urology. CT found fluid collections in bilateral thighs L > R. Unexpected finding of mural thrombus in right common femoral vein. Unexpected finding discussed with patient 07/21. HD2 (07/20): Zosyn and vancomycin started. Interventional radiology occurred procedure where 2 drains were placed in thighs (1 in left and 1 in right). Cultures growing GPC, acinetobacter junii/johnsonii (more details about cultures listed below). HD3 (07/21): ID curbsided about cxs who recommend patient going home on Levaquin 500 once daily at least until urology follow-up (to occur in 1 week). BBW of Levaquin discussed. EKG revealed Qtc 430. Heme also consulted for mural thrombus found on CT 07/19. They recommend patient to continue on Eliquis 5mg daily at least for 3 more months. Patient to present to ER immediately if has new leg swelling, redness, pain, or tender to touch. These symptoms were discussed with patient and his . They demonstrated understanding. Patient also to flush IR drains BID with 3-5mL and this was demonstrated to patient. He tolerated surgery well and was transferred from the PACU to the general floor in good condition a few hours after surgery. Patient's hospital course was uncomplicated. He remained afebrile, with stable vital signs throughout his hospital stay. Today, on , he has met all criteria for discharge home: his pain is well controlled with medications by mouth, he is tolerating a regular diet, is voiding spontaneously without difficulties, and is up and ambulating without complications. He has been deemed safe for discharge. Micro: 07/19: Aerobic: Left thigh drain - mixed gram positive organisms including rare beta hemolytic strep, ground B (pre-dozier) Right thigh drain - rare actinetobacter junii/johnsonii, mixed gram positive organisms (sensitiviesback) (pre-dozier) Anaerobic: Left thigh drain - NGTD (pre-dozier) Right thigh drain - NGTD (pre-dozier) 07/20: Aerobic: Left thigh drain - moderate GPCs (pre-dozier) Right thigh drain - rare GPCs (pre-dozier) Anaerobic: Left thigh drain - in process Right thigh drain - in process Plan: - 1 week f/u with Dr. Garcia hopefully to occur on 07/28 (requested) - IR f/u on 08/04 - Levaquin 500 once daily (per ID & BBW discussed) at least until urology f/u and more can be rxed if Dr. Garcia wishes - Additional Eliquis rx sent (at least 3 mo worth per heme for mural thrombus) - All cxs added to cx book - BID flushing of IR drains Vital Signs at Discharge: Weight: Wt Readings from Last 1 Encounters: 07/07/23 73.9 kg (163 lb) Height: Ht Readings from Last 1 Encounters: 07/07/23 172.7 cm (5' 8) BMI: There is no height or weight on file to calculate BMI. Last value Range last 24 hrs Temperature Temp: 36.9 ??C (98.4 ??F) Temp: [36.7 ??C (98 ??F)-37.7 ??C (99.9 ??F)] Heart Rate Heart Rate: 68 Heart Rate: -- Blood Pressure BP: 121/83 BP: (105-121)/(61-83) Respiratory Rate Resp: 16 Resp: [16] SpO2 SpO2: 96 % SpO2: [95 %-96 %] Exam at Discharge: GEN: NAD. Resting comfortably. CV: RRR, normal S1 S2 sounds. CHEST: Breathing appropriately on room air ABD: Soft, NTND, surgical sites c/d/i BACK: No CVAT : Inguinal incisions c/d/I, slight erythema over and swelling over the left inguinal incision, penile incision c/d/I, bilateral x2 inguinal drain with SS output Important Studies and Lab Data: Recent Labs 07/21/23 0109 07/20/23 0050 07/19/23 1515 WBC 9.1 11.3* 14.2* HGB 12.2* 13.0* 14.3 PLATELET 169 195 243 No results for input(s): INR in the last 72 hours. Recent Labs 07/21/23 0109 07/20/23 0050 07/19/23 1515 07/19/23 1515 NA 138 137 -- 140 K 4.3 4.2 -- 4.4 CL 105 103 -- 102 CO2 24 23 -- 25 BUN 16 14 -- 15 CREATININE 1.02 0.90 -- 1.06 MAGNESIUM 0.91 0.77 < > -- PHOS 3.4 3.0 < > -- < > = values in this interval not displayed. Studies: Results for orders placed or performed during the hospital encounter of 07/19/23 CT Abdomen & Pelvis w Contrast (Exam End: 07/19/2023 4:22 PM) Impression 1. Postsurgical changes in the inguinal regions and lower pelvic anterior abdominal wall, extending into the upper scrotum, with diffuse fat stranding which may indicate cellulitis or inflammation. 2. Large, irregularly-shaped fluid collection surrounding the left surgical drain suspicious for abscess. Smaller fluid collection surrounds the right surgical drain. 3. Hepatomegaly with marked hepatic steatosis. 4. Unexpected finding of nonocclusive mural thrombus along the medial wall of the right common femoral vein. 5. Small volume free intraperitoneal fluid of uncertain etiology and significance. Thank you for letting us participate in the care of this patient. If you are a health care provider and have any questions regarding this report, please contact the number below. For patients who have questions please contact the health lawn care technician that requested your imaging first. Electronically signed by: Hedy Ramirez MD, [facility] ([phone]), at 07/19/2023 4:40 PM Pending Studies and Lab Data: No current labs Discharge Conditions/Prognosis: Stable Discharge to: Home Updated Allergies/ADRs: No Known Allergies Immunizations Given this Hospitalization: There is no immunization history on file for this patient. Discharge Medications: Your Medications New Medications Dose Details * apixaban 5 mg tablet Commonly known as: Eliquis Take 1 tablet by mouth 2 times daily for 30 days. Starting Jun 28, 2023. 5mg twice a day 5 mg Quantity: 60 tablet Refills: 0 * apixaban 5 mg tablet Commonly known as: Eliquis Take 1 tablet by mouth 2 times daily. 5 mg Quantity: 30 tablet Refills: 4 levoFLOXacin 500 mg tablet Commonly known as: Levaquin Take 1 tablet by mouth daily. 500 mg Quantity: 10 tablet Refills: 0 * This list has 2 medication(s) that are the same as other medications prescribed for you. Read thedirections carefully, and ask your doctor or other care provider to review them with you. Continued medications, unchanged Dose Details oxyCODONE 5 mg tablet Commonly known as: Roxicodone Take 1 tablet by mouth every 4 hours as needed for Pain (for severe pain not controlled by tylenol/ibuprofen). 5 mg Quantity: 5 tablet Refills: 0 STOPPED Medications cephALEXin 250 mg capsule Commonly known as: Keflex Smoking Status at Discharge: Social History Tobacco Use Smoking Status Never Smokeless Tobacco Never Instructions Given to Patient at Discharge: Patient Instructions UROLOGY DISCHARGE INSTRUCTIONS Call your doctor for: fevers greater than 100.5 severe nausea or vomiting increasing pain not controlled by pain medications increasing redness or drainage from incisions decreased urine output, inability to urinate, or if your catheter is no longer draining The number for questions is [phone] before 5 PM weekdays and [phone] after 5 PM and weekends. Activity level: No heavy lifting greater than 10 -15 pounds (about equal to a full gallon jug) for the next 2-3 weeks or until cleared to do so at follow-up appointment. Otherwise activity as tolerated by comfort level. Medications: Please take antibiotic (Levofloxacin) 500 mg once daily for the next week (at least until your nexturology appt). If Dr. Garcia wants to prescribe more antibiotics he will after sees you in the office next week. Additional Eliquis was sent to your pharmacy. Please take Eliquis 5 mg twice daily at least for 3 more months. Diet: You may resume your regular diet as tolerated. Driving: No driving while still taking opioid pain medications (wait at least 6- 8 hours since last dose). No driving if you are still sore from surgery as it may limit your ability to react quickly if necessary. Shower/Bath: You may shower but do not get draisn wet where they enter the skin. Do not soak in water (s) (i.e. soaking in bath or swimming) until told you may do so by a doctor, as this may promote a wound infection. Wound Care: You may cover wounds with sterile gauze as needed to prevent incision rubbing on clothes or for any seepage. Drains: Please keep detailed journal of drain output and bring this to your next urology appointment. More specific instructions are listed below. Follow up Appointments: - Follow-up appointment will be scheduled with Dr. Garcia in about 1 week. Our schedulers will contact you with date and time but we requested this to occur on 07/28/23. Please call [phone] (clinic number for appointments) to confirm date and time of your appointment if you do not receive it. - You will follow-up with the Interventional Radiology team on 08/04/23 at . - Please return to ER immediately, if you develop new leg swelling, new redness, or new leg pain. This could be a sign that the blood clot is now causing obstruction in your vein. General Instructions INTERVENTIONAL RADIOLOGY DRAIN CARE INSTRUCTIONS Drains help to keep fluid from collecting by removing the extra blood and fluid from under the skinor from an abscess within the body. A drain is temporary. It stays in place until the drainage has slowed down or stopped. Your Provider will decide when each drain should be removed. This is usuallyafter each drain has 30cc or less in 24 hours for 2-3 days in a row. You will then be scheduled for what is called a Sinogram to check and see if the fluid collection has gotten smaller. How do I care for the drains at home? Pin your drain/s to your clothing by using a safety pin through the plastic loop on the top of the bulb. If the drain is not attached to your clothing, it may pull out from under your skin. Also, a drain usually feels more comfortable when it???s attached. To care for the drain at home, you will have to empty the drain, ???strip?? the drain tubing, and change the dressing if applicable. * See the following information on instructions on how to do this. You will go home with a dressing over the insertion site. Usually, Visiting Nurses are set up to show you how to change the dressing and care for the drain. They may teach a family member if they arewilling. The dressing needs to only be change once a week provided there is no leakage around the tube. What problems may I have with my drain? The bulb is not compressed- The bulb may not be squeezed tightly enough, the plug may not be closedsecurely, or the tube has slipped out a bit and is leaking. Follow the instructions on how to emptythe drain. If the bulb remains expanded, then notify your doctor or nurse during business hours. No drainage or sudden decrease in amount of drainage- This may be due to a plug in the drain. Please notify your doctor or nurse during business hours. The tube accidentally falls out- If this happens, place a dry gauze dressing over the drain site and notify your doctor or nurse during business hours. Increased redness, swelling, or heat around the tube insertion site- This may be a sign of infection. Take your temperature: if it is higher than 101F or 38.8C, call your doctor or nurse immediately.Otherwise, notify your doctor or nurse during business hours and keep the dressing clean and dry. How to Empty Your Drain and flush drain Note: Wash your hands thoroughly before emptying your drain(s). Unpin the drain from your clothing. 1. Turn the white stopcock so it is not parallel (in line) with the tubing. 2. Unscrew the tubing with the bulb attached from stopcock. Make sure you keep everything clean. 3. Attach the syringe with sterile saline to the stopcock. 4. Inject saline per MD order, 3-5 cc's. Forward flush only, do not aspirate back. 5. Re-attach the tubing with the bulb to the stopcock. 6. Invert the bulb and pull open the plug. 7. Have the plastic measuring cup from the hospital ready to collect and measure the drainage. Please measure the output at the same time every 24 hours and record the amount. 8. Turn the drain upside down and squeeze the contents of the bulb into the measuring cup. Be sure to empty the bulb as completely as possible. Flush the contents in the toilet. 9. Use the drain output log chart to record the amount of drainage twice a day or any time the bulbis full. Record the total for 24 hours for each drain you have. 10. If you have more than one drain, remember to record the drainage from each drain separately. 11. To prevent infection, do not let the stopper or top of the bottle touch the measuring cup or any other surface. Use one hand to squeeze all of the air from the drain. With the drain still squeezed, use your other hand to replace the top. This creates the suction necessary to remove the fluids from your body. Pin the drain back on your clothing to avoid pulling it out accidently. Wash your hands again. Remember to wash your hands before and after the procedure to reduce the risk of infection. Flushing the Drain: Your doctor may want the drain to be flushed once or twice daily to keep the fluid from plugging the drain. Flush the drain with 3-5 cc daily with the syringes supplied to you. FORWARD FLUSH ONLY, DO NOT ASPIRATE BACK. When to call the Interventional Radiology Department: Please call with any questions or concerns. If it is during regular office hours, please call [phone]. If it is after regular office hours, or on weekends or holidays, please call [phone] and ask to speak to the Math And Science Instructor operations manager station for Interventional Radiology. XX You have received medication during your procedure [...] please contact your M. D. Revised 04/05/19 Drainage Record NAME: Date of Surgery: Date: Time: If more than one drain, which one: Drainage Amount (per drain) Total Amount (per drain; in 24 hours) Future Appointments and Orders Future Appointments and Orders Future Appointments Provider Department Dept Phone 07/26/2023 2:00 PM Lucinda Cardenas, PACKAGING DESIGN ENGINEER; Olivier Obrien MD Hematology/Oncology at [facility] Arrive at: [facility] door at end of hallway [phone] 08/04/2023 9:00 AM Tia Espinozayl E, OT Occupational Therapy at [facility] Arrive at: Tabular Typist Area 2L [phone] 08/04/2023 1:50 PM [facility] IR ROOM 3 Radiology at [facility] Arrive at: [facility] RADIOLOGY [phone] Please expect a call from a radiology nurse within 3 days of your exam, you will need to follow theinstructions given at that time. 08/16/2023 9:00 AM Caroline Espinoza E, OT Occupational Therapy at [facility] Arrive at: Tabular Typist Area [phone] 08/18/2023 9:[address] Leatha Antony Radiation Oncology at [facility] Arrive at: [facility] door at end of hallway [phone] 08/18/2023 10:00 AM Rolly Peters MD Radiation Oncology at [facility] Arrive at: [facility] door at end of hallway [phone] 08/30/2023 9:00 AM Caroline Espinoza E, OT Occupational Therapy at [facility] Arrive at: Tabular Typist Area 2L [phone] 09/13/2023 9:00 AM Caroline Espinoza E, OT Occupational Therapy at [facility] Arrive at: Tabular Typist Area [phone] Future Orders Complete By Expires IR Drain Check/Change/Remove [[id number] Custom] 08/03/2023 11/18/2023 Process Instructions: Scheduling Instructions: Comments: Questions: Where will study be performed?: [facility] Radiology Reason for exam and clinical history: Bilateral Groin / Thigh collections following lymph node dissection. DRain placed 07/20 Exam/Procedure requested: What labs need to be collected during imaging study?: Does patient require sedation?: Requested Time: Date of injury if applicable: Clinical information / mayfield questions for radiologist: GA rationale: Is the patient on anticoagulant / antiplatelet therapy ?: No Follow-Up: Future Appointments Date Time Provider Department Center 07/26/2023 2:00 PM Olivier Obrien MD [facility] 08/04/2023 9:00 AM Caroline Espinoza OT OT [facility] 08/04/2023 1:50 PM [facility] IR ROOM 3 IR [facility] Rad 08/16/2023 9:00 AM Caroline Espinoza, OT [facility] 08/18/2023 9:[address] Leatha Antony [facility] Rad [facility] 08/18/2023 10:00 AM Rolly Peters MD [facility] Rad [facility] 08/30/2023 9:00 AM EspinozaCaroline de la torre, OT [facility] 09/13/2023 9:00 AM EspinozaCaroline de la torre, OT [facility] Primary Care Provider: Shannan Arellano, PACKAGING DESIGN ENGINEER [phone] Unexpected Findings: Mural thrombus in right common femoral vein found on CT 07/19/23 (discussed with patient and discussed with Heme) Call your doctor if: Please call your doctor immediately or go to an Emergency Department if you notice worsening pain not controlled by pain medications, uncontrolled headache, vision changes, chest pain, difficulty breathing, persistent nausea and vomiting, new redness or swelling in any extremities, new onset weakness or changes in sensation, or for any fevers greater than 101.3 F. Your care was managed by the Urology Team at [facility]. If you have any questions or concerns, please feel free to contact us. Provider Contact Information: Urology Clinic: [facility] (after business hours): Total time spent on discharge including [id number] time, care coordination, and discharge summarypreparation: 90 minutes LEONOR Acosta 07/21/2023 documented in this encounter Discharge Instructions * Discharge Instructions* Kristel Gilman RN - 07/20/2023 1:21 PM EST Images from the original note were not included. INTERVENTIONAL RADIOLOGY DRAIN CARE INSTRUCTIONS Drains help to keep fluid from collecting by removing the extra blood and fluid from under the skinor from an abscess within the body. A drain is temporary. It stays in place until the drainage has slowed down or stopped. Your Provider will decide when each drain should be removed. This is usuallyafter each drain has 30cc or less in 24 hours for 2-3 days in a row. You will then be scheduled for what is called a Sinogram to check and see if the fluid collection has gotten smaller. How do I care for the drains at home? Pin your drain/s to your clothing by using a safety pin through the plastic loop on the top of the bulb. If the drain is not attached to your clothing, it may pull out from under your skin. Also, a drain usually feels more comfortable when it???s attached. To care for the drain at home, you will have to empty the drain, ???strip?? the drain tubing, and change the dressing if applicable. * See the following information on instructions on how to do this. You will go home with a dressing over the insertion site. Usually, Visiting Nurses are set up to show you how to change the dressing and care for the drain. They may teach a family member if they arewilling. The dressing needs to only be change once a week provided there is no leakage around the tube. What problems may I have with my drain? The bulb is not compressed- The bulb may not be squeezed tightly enough, the plug may not be closedsecurely, or the tube has slipped out a bit and is leaking. Follow the instructions on how to emptythe drain. If the bulb remains expanded, then notify your doctor or nurse during business hours. No drainage or sudden decrease in amount of drainage- This may be due to a plug in the drain. Please notify your doctor or nurse during business hours. The tube accidentally falls out- If this happens, place a dry gauze dressing over the drain site and notify your doctor or nurse during business hours. Increased redness, swelling, or heat around the tube insertion site- This may be a sign of infection. Take your temperature: if it is higher than 101F or 38.8C, call your doctor or nurse immediately.Otherwise, notify your doctor or nurse during business hours and keep the dressing clean and dry. How to Empty Your Drain and flush drain Note: Wash your hands thoroughly before emptying your drain(s). Unpin the drain from your clothing. 1. Turn the white stopcock so it is not parallel (in line) with the tubing. 2. Unscrew the tubing with the bulb attached from stopcock. Make sure you keep everything clean. 3. Attach the syringe with sterile saline to the stopcock. 4. Inject saline per MD order, 3-5 cc's. Forward flush only, do not aspirate back. 5. Re-attach the tubing with the bulb to the stopcock. 6. Invert the bulb and pull open the plug. 7. Have the plastic measuring cup from the hospital ready to collect and measure the drainage. Please measure the output at the same time every 24 hours and record the amount. 8. Turn the drain upside down and squeeze the contents of the bulb into the measuring cup. Be sure to empty the bulb as completely as possible. Flush the contents in the toilet. 9. Use the drain output log chart to record the amount of drainage twice a day or any time the bulbis full. Record the total for 24 hours for each drain you have. 10. If you have more than one drain, remember to record the drainage from each drain separately. 11. To prevent infection, do not let the stopper or top of the bottle touch the measuring cup or any other surface. Use one hand to squeeze all of the air from the drain. With the drain still squeezed, use your other hand to replace the top. This creates the suction necessary to remove the fluids from your body. Pin the drain back on your clothing to avoid pulling it out accidently. Wash your hands again. Remember to wash your hands before and after the procedure to reduce the risk of infection. Flushing the Drain: Your doctor may want the drain to be flushed once or twice daily to keep the fluid from plugging the drain. Flush the drain with 3-5 cc daily with the syringes supplied to you. FORWARD FLUSH ONLY, DO NOT ASPIRATE BACK. When to call the Interventional Radiology Department: Please call with any questions or concerns. If it is during regular office hours, please call [phone]. If it is after regular office hours, or on weekends or holidays, please call [phone] and ask to speak to the [employer] operations manager station for Interventional Radiology. XX You have received medication during your procedure [...] please contact your M. D. Revised 04/05/19 Drainage Record NAME: Date of Surgery: Date: Time: If more than one drain, which one: Drainage Amount (per drain) Total Amount (per drain; in 24 hours) * Patient Instructions* Nahomy Pugh PA - 07/21/2023 2:14 PM EST UROLOGY DISCHARGE INSTRUCTIONS Call your doctor for: fevers greater than 100.5 severe nausea or vomiting increasing pain not controlled by pain medications increasing redness or drainage from incisions decreased urine output, inability to urinate, or if your catheter is no longer draining The number for questions is [phone] before 5 PM weekdays and [phone] after 5 PM and weekends. Activity level: No heavy lifting greater than 10 -15 pounds (about equal to a full gallon jug) for the next 2-3 weeks or until cleared to do so at follow-up appointment. Otherwise activity as tolerated by comfort level. Medications: Please take antibiotic (Levofloxacin) 500 mg once daily for the next week (at least until your nexturology appt). If Dr. Garcia wants to prescribe more antibiotics he will after sees you in the office next week. Additional Eliquis was sent to your pharmacy. Please take Eliquis 5 mg twice daily at least for 3 more months. Diet: You may resume your regular diet as tolerated. Driving: No driving while still taking opioid pain medications (wait at least 6- 8 hours since last dose). No driving if you are still sore from surgery as it may limit your ability to react quickly if necessary. Shower/Bath: You may shower but do not get draisn wet where they enter the skin. Do not soak in water (s) (i.e. soaking in bath or swimming) until told you may do so by a doctor, as this may promote a wound infection. Wound Care: You may cover wounds with sterile gauze as needed to prevent incision rubbing on clothes or for any seepage. Drains: Please keep detailed journal of drain output and bring this to your next urology appointment. More specific instructions are listed below. Follow up Appointments: - Follow-up appointment will be scheduled with Dr. Garcia in about 1 week. Our schedulers will contact you with date and time but we requested this to occur on 07/28/23. Please call [phone] (clinic number for appointments) to confirm date and time of your appointment if you do not receive it. - You will follow-up with the Interventional Radiology team on 08/04/23 at . - Please return to ER immediately, if you develop new leg swelling, new redness, or new leg pain. This could be a sign that the blood clot is now causing obstruction in your vein. documented in this encounter Medications at Time of Discharge Medication Sig Dispensed Refills Start Date End Date oxyCODONE (Roxicodone) 5 mg tablet Take 1 tablet by mouth every 4 hours as needed for Pain (for severe pain not controlled by tylenol/ibuprofen). 5 tablet 06/26/2023 apixaban (Eliquis) 5 mg tablet Take 1 tablet by mouth 2 times daily. 30 tablet 4 07/21/2023 07/26/2023 levoFLOXacin (Levaquin) 500 mg tablet Take 1 tablet by mouth daily. 10 tablet 07/21/2023 07/26/2023 apixaban (Eliquis) 5 mg tablet Take 1 tablet by mouth 2 times daily for 30 days. Starting Jun 28, 2023. 5mg twice a day 60 tablet 06/28/2023 07/28/2023 documented as of this encounter Progress Notes * Kinga Magana RN - 07/21/2023 3:30 PM EST [facility] Short Stay Unit Discharge Note All relevant discharge milestones have been met by the patent. After Visit Summary and discharge teaching reviewed with the patient and spouse. IV access has been discontinued. All personal belongings have been returned to the patient/family upon their departure from the unit. Patient has been discharged to home The patient has been discharged without VNA services. * Shabana Stone PA - 07/21/2023 8:13 AM EST Interventional Radiology Inpatient Progress Note Admitted 07/19/2023 Procedure(s): Bilateral inguinal drain placement Post-procedure day: #1 24 Hour Events: No acute events overnight. Last Value 24 Hour Range Temperature 36.7 ??C (98.1 ??F) Temp: [36.6 ??C (97.9 ??F)-37.7 ??C (99.9 ??F)] Heart Rate 68 Heart Rate: [65-71] Blood Pressure 116/74 BP: (91-119)/(57-79) Respiratory Rate 16 Resp: [16-27] SpO2 95 % SpO2: [92 %-96 %] Drains/Tubes (drainage over 24 hours) -L inguinal drain- 20 cc -R inguinal drain- 75 cc Labs: Reviewed-- Recent Labs 07/21/23 0109 07/20/23 0050 07/19/23 1515 WBC 9.1 11.3* 14.2* HGB 12.2* 13.0* 14.3 HCT 35.4* 38.0* 41.8 PLATELET 169 195 243 Micro: -L inguinal fluid- Beta hemolytic Strep -R inguinal fluid- Acinetobacter junii Assessment: 73 y.o. male with PMH of penile SCC s/p partial penectomy with B/L inguinal LN dissection with B/L inguinal drain placement on 06/24 currently admitted for B/L inguinal abscesses s/p drain placement POD #1. Per notes, sites look well. Drains functioning appropriately. Cultures positive for Strep from L inguinal abscess and A junii from R inguinal abscess. Patient covered with Vancomycinand Zosyn. Leukocytosis decreased from 11.3 to 9.1. Of note, both abscesses noted to have multiple internal septations (L>R) on US during drain placement yesterday. Flushing the drains will be particularly important to ensuring these abscesses resolve. Plan: -Record drain output. -Forward flush drain with 3-5 cc saline BID to maintain drain patency. -Follow-up for routine drain check as scheduled on 08/04. IR will sign-off at this time. Please page with further questions and concerns. Shabana Stone PA-C Interventional Radiology IR Team Pager [phone] * Kristel Gilman RN - 07/20/2023 10:54 AM EST ANGIO NURSING DATABASE Name: Eduardo Contreras Date of : 1950 AGE: 73 y.o. [address]: [address] [address] (home) Mobile: Telephone Information: Referring Provider: Unknown REASON FOR VISIT: Order Questions Answers Is the patient on anticoagulant / antiplatelet therapy ? DOAC (Direct Oral Anticoagulant) Reason for exam and clinical history: penile scc s/p partial penectomy with bilateral ILND and leftPLND 06/24 (went home with 2 thigh drains) now with fluid collection around bilateral drains L > R What labs need to be collected during imaging study? Cultures Planned procedure: US Guided inguinal drain placement Labs to be performed day of procedure: Other (See Comments) (to be ordered by primary team) Sedation: No Sedation Prophylactic antibiotic : None Contrast: No contrast Additional medications for procedure: Lidocaine Position: Supine Consent: Pending Medications to discontinue (and days held): None No Known Allergies Pertinent PMH: Patient Active Problem List Diagnosis Code Penile cancer C60.9 Intra-abdominal fluid collection R18.8 Date/Procedure Meds Given/Comments 07/20/23 US Guided Inguinal drain placement x 2 Versed 2mg, Fentanyl 100mcg 1228 to procedure room 2 via stretcher. Remains on stretcher. All monitors, O2, safety strap in place. Meds per protocol. Laboratory Results: Lab Results Component Value Date CREATININE 0.90 07/20/2023 Lab Results Component Value Date K 4.2 07/20/2023 Lab Results Component Value Date PLATELET 195 07/20/2023 * Nahomy Pugh PA - 07/20/2023 8:13 AM EST Urology Progress Note Patient: Eduardo Contreras : 1950 Room: [address] Admit date: 07/19/2023 Attending: Zachary Garcia MD ID: Eduardo Contreras is a 73 y.o. male with PMH most significant of [id number] penile SCC who is s/p partial penectomy / bilateral ILND / laparoscopic LEFT PLND on 06/24. He has bilateral inguinal drain after procedure. Patient was last seen by Dr. Garcia on 07/15 and was doing well at the time and until today. Patients presents to ED today due to increase redness of surgical site, N/V, subjective chills and draininage pinkish fluid from the drain. His drain culture from 06/30 was NG. Output is [id number] ml/day. He is still on Keflex 250 mg QD. Patient has been urinating without dysuria or hematuria. Past 24 hr Events: - NAEON - Afebrile - on Zosyn and vancomycin - Left drain: 95cc; right drain 65cc (overnight amounts) Current Medications: vancomycin 1 g Intravenous Q18H apixaban 5 mg Oral BID senna-docusate 2 tablet Oral BID sodium chloride 0.9 % (flush) 5 mL Intravenous BID piperacillin-tazobactam 3.375 g Intravenous Q8H Objective: Last value Range last 24hrs Temperature Temp: 36.9 ??C (98.4 ??F) Temp: [36.7 ??C (98.1 ??F)-37.4 ??C (99.4 ??F)] Heart Rate Heart Rate: 74 Heart Rate: [68-88] Blood Pressure BP: 104/67 BP: (101-118)/(59-82) Respiratory Rate Resp: 16 Resp: [16-30] SpO2 SpO2: 95 % SpO2: [92 %-96 %] Intake/Output Summary (Last 24 hours) at 07/20/2023 0814 Last data filed at 07/20/2023 0800 Gross per 24 hour Intake 860 ml Output 160 ml Net 700 ml Physical Exam: GEN: NAD. Resting comfortably. CV: RRR, normal S1 S2 sounds. CHEST: Breathing appropriately on room air ABD: Soft, NTND, surgical sites c/d/i BACK: No CVAT : Inguinal incisions c/d/I, slight erythema over and swelling over the left inguinal incision, penile incision c/d/I, bilateral inguinal drain with SS output Labs: Recent Labs 07/20/23 0050 07/19/23 1515 WBC 11.3* 14.2* HGB 13.0* 14.3 HCT 38.0* 41.8 PLATELET 195 243 Recent Labs 07/20/23 0050 07/19/23 1515 NA 137 140 K 4.2 4.4 CL 103 102 CO2 23 25 BUN 14 15 CREATININE 0.90 1.06 GLUCOSE 122 125 CALCIUM 8.3* 8.8 MAGNESIUM 0.77 -- PHOS 3.0 -- No results found for: SPGRAVITYUA, PHUADIP, PROTEINUADIP, GLUCOSEU, KETONESUA, UROBILIUADIP, BLOODUADIP, NITRATEUA, LEUKOESTERUA, WBCUA, BILIRUBINUA Imaging: CT Abdomen Pelvis w/ contrast 07/19/23: IMPRESSION 1. Postsurgical changes in the inguinal regions and lower pelvic anterior abdominal wall, extending into the upper scrotum, with diffuse fat stranding which may indicate cellulitis or inflammation. 2. Large, irregularly-shaped fluid collection surrounding the left surgical drain suspicious for abscess. Smaller fluid collection surrounds the right surgical drain. 3. Hepatomegaly with marked hepatic steatosis. 4. Unexpected finding of nonocclusive mural thrombus along the medial wall of the right common femoral vein. 5. Small volume free intraperitoneal fluid of uncertain etiology and significance. Micro: 07/19: Aerobic: Left thigh drain - GPC, GNR (pre-dozier) Right thigh drain - NGTD (pre-dozier) Anaerobic: Left thigh drain - NGTD (pre-dozier) Right thigh drain - NGTD (pre-dozier) A/P: Eduardo Contreras is a 73 y.o. male PMH most significant of [id number] penile SCC who is s/p partialpenectomy / bilateral ILND / laparoscopic LEFT PLND on 06/24 on Eliquis who was readmitted for increased redness of surgical site, N/V, subjective chills and draininage pinkish fluid from the drain.His drain culture from 06/30 was NG. He had been taking Keflex since discharge. Vancomycin and zosynadded on today. CT abdomen pelvis with contrast 07/19 revealed large irregular shaped fluid collection surrounding left drain suspicious for abscess and smaller fluid collection around right drain. Patient clinically doing well. He has been afebrile with stable vital signs. Leukocytosis improving(14.2 yesterday to 11.3 today). On mIVF. Voiding spontaneously without issues. Today's Plan: IR for drain for left thigh fluid collection (possible right thigh drain, too) CLD Neuro: prn tylenol and oxycodone CV: HDS, monitor vital signs, on Eliquis Pulm: encourage IS/OOB, deep breathing FENGI: Clear Liquid mIVF (LR) 50 mL/hr - bowel meds: edith pericolace - replete lytes prn : monitor urine output ID: on Zosyn and vanc (07/20 - ) Heme: CRISTELA Endo: None Psych: None PPX: SCDs, deep breathing, cough, ambulation Dispo: floor status, Attempt Cardiopulmonary Resuscitation - Inpatient Plan discussed with Dr. Garcia, Urology attending. LEONOR Acosta 07/20/2023 [id number] documented in this encounter H&P Notes * Ayden Grijalva PA - 07/20/2023 8:35 AM EST Images from the original note were not included. Interventional Radiology Interval H&P: Procedure: Planned procedure: US Guided inguinal drain placement Update to H&P: The patient's history and physical exam have been reviewed and completed. There has been NO interval change from that of the pre-procedural note done within the last 30 days. Thereis NO change in the procedural plan. Meds: Current medications reviewed. No medications held. Labs: No new relevant labs. Physical Exam: Cardiovascular: Regular, Normal Pulmonary: Breath sounds clear to auscultation The planned procedure (and sedation plan if appropriate), its benefits and risks, and alternatives were discussed with the patient. The patient consented to the procedure. The indications for the procedure are still present. Pre-sedation Assessment: Sedation Plan: moderate (conscious sedation) ASA: 2: Patient with mild systemic disease Mallampati: I: soft palate, fauces, tonsillar pillars and uvula can be seen Confirm NPO status: Yes History of anesthetic complications: No Current medications reviewed: Yes Allergies reviewed: Yes ======== Source note ======== INTERVENTIONAL RADIOLOGY FOCUSED H&P and PRE-PROCEDURE NOTE: PCP: Shannan Arellano APRN Referring Provider: LEONOR Pugh Planned Procedure: Planned procedure: US Guided inguinal drain placement Procedure Indication: fluid collections, infected Procedure Request: Procedure request received through the Interventional Radiology eDH order queue. Presenting Diagnosis/ Complaint: Eduardo Contreras is a 73 y.o. male with a history of penile SCC s/p partial penectomy/bilateral ILND (06/24/23) with bilateral inguinal drains. He was started on Eliquis post-operatively and is on Keflex 250mg qD. He presented to the ED 07/19/23 with subjective chills, N/V, and erythema of the surgical site. He was admitted to urology and started on vancy/zosyn. Labs notable for WBC 14(from 11). He has been afebrile and remains HDS on RA. Patient is able to give consent. CT showed a large left inguinal fluid collection measuring approximately 2.5 x 7 x 14 cm. There is also a smaller fluid collection in the right inguinal region measuring 1 x 3 x 2 cm. IR consulted for left, possible right, inguinal drain placements. Labs to be ordered by primary team. Past Medical/Surgical History: Patient Active Problem List Diagnosis Code Penile cancer C60.9 Intra-abdominal fluid collection R18.8 No past medical history on file. Past Surgical History: Procedure Laterality Date PRO CYSTOURETHROSCOPY, BIOPSIES N/A 05/09/2023 CYSTO, URETHROSCOPY WITH BIOPSY (WRVU 2.59) performed by Zachary Garcia MD at [facility] OSC PRO MUSCLE-SKIN FLAP, LEG Bilateral 06/24/2023 FLAP, MYOCUTANEOUS OR FASCIOCUTANEOUS, LOWER EXTREMITY (WRVU 19.04) performed by [facility] MDat [facility] MAIN OR PRO REMOVAL PENIS, PARTIAL N/A 06/24/2023 PENILE AMPUTATION, PARTIAL (WRVU 11.01) performed by Zachary Garcia MD at [facility] MAIN OR PRO REMOVE GROIN LYMPH NODES SUPERF Bilateral 06/24/2023 LYMPHADENECTOMY, INGUINOFEMORAL- ADRIEN (WRVU 13.62) performed by Zachary Garcia MD at [facility] MAIN OR PRO UNLISTED LAPAROSCOPY PROCEDURE LYMPHATIC SYSTEM Bilateral 06/24/2023 LAPAROSCOPIC LYMPHADENECTOMY (WRVU 17.08) performed by Zachary Garcia MD at [facility] MAIN OR Medications: No current facility-administered medications on file prior to encounter. Current Outpatient Medications on File Prior to Encounter Medication Sig Dispense Refill cephALEXin (Keflex) 250 mg capsule Take 1 capsule by mouth daily. 40 capsule 3 oxyCODONE (Roxicodone) 5 mg tablet Take 1 tablet by mouth every 4 hours as needed for Pain (for severe pain not controlled by tylenol/ibuprofen). 5 tablet 0 apixaban (Eliquis) 5 mg tablet Take 1 tablet by mouth 2 times daily for 30 days. Starting Jun 28, 2023. 5mg twice a day 60 tablet 0 Allergies: Patient has no known allergies. Social History and Habits: Social History Socioeconomic History Marital status: Spouse [...] Social Determinants of Health Financial Resource Strain: Not on file Food Insecurity: Not on file Transportation Needs: Not on file Physical Activity: Not on file Intimate Partner Violence: Not on file Housing Stability: Not on file Significant Family History: No family history on file. Pertinent ROS: as per HPI Labs: Lab Results Component Value Date WBC 11.3 (H) 07/20/2023 HCT 38.0 (L) 07/20/2023 PLATELET 195 07/20/2023 BUN 14 07/20/2023 CREATININE 0.90 07/20/2023 K 4.2 07/20/2023 Imaging: Physical Exam: Pending (to be performed in angio the day of procedure) ASA: Pending (to be assessed in angio the day of procedure) Mallampati Class: Pending (to be assessed in angio the day of procedure) Reviewed with Attending: Dr. Coley Plan: Planned procedure: US Guided inguinal drain placement Labs to be performed day of procedure: Other (See Comments) (to be ordered by primary team) Sedation: No Sedation Prophylactic antibiotic : None Contrast: No contrast Additional medications for procedure: Lidocaine Position: Supine Consent: Pending Medications to discontinue (and days held): None 07/20/2023 documented in this encounter ED Notes * Manjula Desai MD - 07/19/2023 2:10 PM EST ED Resident Note HPI: Eduardo Contreras is a 73 y.o. male with recent diagnosis and surgical treatment for invasive squamouscell carcinoma of the penis who presents to the Emergency Department for increased redness and swelling of L inguinal region at site of L inguinal lymph node dissection. He underwent surgery on 06/24 during which resection of his penile cancer as well as bilateral inguinal lymph node dissection was performed. Ultimately 09/27 L and 08/30 R inguinal nodes returned positive for carcinoma. He has surgical drains in place and is on keflex (06/26-). This morning he felt queasy and experienced vomiting andchills. He went to see his lymphedema therapist [place] [facility] [place] to the ED for his L groin redness. ROS as per HPI Vitals: ED Triage Vitals BP: 102/67 [07/19/23 1143] Heart Rate: 88 [07/19/23 1143] Resp: 18 [07/19/23 1143] Temp: 36.7 ??C (98.1 ??F) [07/19/23 1141] Temp src: Temporal [07/19/23 1141] SpO2: 95 % [07/19/23 1143] O2 Device: RA [07/19/23 1143] O2 Flow Rate (L/min): n/a Physical Exam General: age appropriate, alert and oriented, in NAD Cardio: RRR, no murmurs, rubs, or gallops, no significant LE edema noted Pulm: CTA b/l, no wheezes, rales, or rhonchi Abdominal: no tenderness to palpation, normal bowel sounds all quadrants Skin: no rashes : erythema and warmth of L inguinal region >R inguinal region, no open areas of surgical incisions, s/p penile resection, Madrigal drains in place at inguinal sites bilaterally draining serosanguinous fluid Musculoskeletal: full ROM Neuro: no significant weakness noted ED Course: I have reviewed labs and imaging, images and available reports, and they are significant for: CT abdomen pelvis 06/24: IMPRESSION 1. Postsurgical changes in the inguinal regions and lower pelvic anterior abdominal wall, extending into the upper scrotum, with diffuse fat stranding which may indicate cellulitis or inflammation. 2. Large, irregularly-shaped fluid collection surrounding the left surgical drain suspicious for abscess. Smaller fluid collection surrounds the right surgical drain. 3. Hepatomegaly with marked hepatic steatosis. 4. Unexpected finding of nonocclusive mural thrombus along the medial wall of the right common femoral vein. 5. Small volume free intraperitoneal fluid of uncertain etiology and significance. Lab Results Component Value Date WBC 14.2 (H) 07/19/2023 HGB 14.3 07/19/2023 HCT 41.8 07/19/2023 MCV 88.9 07/19/2023 PLATELET 243 07/19/2023 Lab Results Component Value Date NA 140 07/19/2023 K 4.4 07/19/2023 CL 102 07/19/2023 CO2 25 07/19/2023 BUN 15 07/19/2023 CREATININE 1.06 07/19/2023 GLUCOSE 125 07/19/2023 CALCIUM 8.8 07/19/2023 ESTGFR 75 07/19/2023 Lactate 2.2 ED Course as of 07/19/23 1625 Tue Jul 19, 2023 1537 15:30 Dr. Richter urology examined patient 1624 CT Abdomen & Pelvis w Contrast No orders to display Procedures Assessment and Plan: 73 y.o. male with with recent diagnosis and surgical treatment for invasive squamous cell carcinomaof the penis who presents to the Emergency Department for increased redness and swelling of L inguinal region at site of L inguinal lymph node dissection. Suspected surgical site infection despite patient on keflex. Urology contacted, believes likely cellulitis. Imaging returned with findings consistent with abscess around L surgical drain site. #erythema #cellulitis of surgical site -urology contacted, following -CBC with WBC 14.2 -BMP -lactate 2.2 wnl -CT abdomen pelvis with abscess around L surgical drain -Vanc/zosyn started in ED -Admission planned The visit findings, diagnosis, and care plan were discussed with the patient. Admission planned Marjan Corrales DO Resident 07/19/23 0180 ED ATTENDING ATTESTATION NOTE The patient was seen in conjunction with the resident physician. I have independently performed thekey portions of the history and physical exam. I have reviewed the diagnostic studies including labs, imaging studies and EKGs. I have discussed the details of the case with the resident and agree with the assessment and plan as described in the resident note unless noted below or in my separate note. Brief Summary: 73 y.o. male with chills, erythema, swelling, and tenderness in context of recent surgery. Imaging shows abscess and is already on PO abx. Broad spectrum IV ABX given in ED and admitted to urology. Manjula Desai MD 07/20/23 2166 * Geovany Mancuso MD - 07/19/2023 11:41 AM EST Telehealth [id number] Note: The following documentation is provided in my role as a TeleEmergency Physician and reflects a live audiovisual interaction. Brief HPI: s/p B/L lymph node dissection by urology, swelling at incision site with chills Brief Physical Exam: Vital signs reviewed General appearance: No acute distress Tests Ordered: pending bedside evaluation Preliminary testing was ordered. The patient is awaiting a bed in the Emergency Department. Geovany Mancuso MD 07/19/23 1143 documented in this encounter Miscellaneous Notes * Consult Note - Maury Loyd MD - 07/19/2023 3:11 PM EST Images from the original note were not included. UROLOGY H&P NOTE CC Post-op infection HPI Eduardo Contreras is a 73 y.o. male with PMH most significant of [id number] penile SCC who is s/p partialpenectomy / bilateral ILND / laparoscopic LEFT PLND on 06/24. He has bilateral inguinal drain after procedure. Patient was last seen by Dr. Garcia on 07/15 and was doing well at the time and until today. Patients presents to ED today due to increase redness of surgical site, N/V, subjective chills and draininage pinkish fluid from the drain. His drain culture from 06/30 was NG. Output is about 180ml/day. He is still on Keflex 250 mg QD. Patient has been urinating without dysuria or hematuria. PMH/PSH No past medical history on file. Patient Active Problem List Diagnosis Code Penile cancer C60.9 Past Surgical History: Procedure Laterality Date PRO CYSTOURETHROSCOPY, BIOPSIES N/A 05/09/2023 CYSTO, URETHROSCOPY WITH BIOPSY (WRVU 2.59) performed by Zachary Garcia MD at [facility] OSC PRO MUSCLE-SKIN FLAP, LEG Bilateral 06/24/2023 FLAP, MYOCUTANEOUS OR FASCIOCUTANEOUS, LOWER EXTREMITY (WRVU 19.04) performed by Zachary Garcia MDat [facility] MAIN OR PRO REMOVAL PENIS, PARTIAL N/A 06/24/2023 PENILE AMPUTATION, PARTIAL (WRVU 11.01) performed by Zachary Garcia MD at [facility] MAIN OR PRO REMOVE GROIN LYMPH NODES SUPERF Bilateral 06/24/2023 LYMPHADENECTOMY, INGUINOFEMORAL- ADRIEN (WRVU 13.62) performed by Zachary Garcia MD at [facility] MAIN OR PRO UNLISTED LAPAROSCOPY PROCEDURE LYMPHATIC SYSTEM Bilateral 06/24/2023 LAPAROSCOPIC LYMPHADENECTOMY (WRVU 17.08) performed by Zachary Garcia MD at [facility] MAIN OR MED No current facility-administered medications on file prior to encounter. Current Outpatient Medications on File Prior to Encounter Medication Sig Dispense Refill cephALEXin (Keflex) 250 mg capsule Take 1 capsule by mouth daily. 40 capsule 3 oxyCODONE (Roxicodone) 5 mg tablet Take 1 tablet by mouth every 4 hours as needed for Pain (for severe pain not controlled by tylenol/ibuprofen). 5 tablet 0 apixaban (Eliquis) 5 mg tablet Take 1 tablet by mouth 2 times daily for 30 days. Starting Jun 28, 2023. 5mg twice a day 60 tablet 0 SFamily History: There is no family history of Penile issues. Father ASCVD. 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 The patient has been for 30 years with 6 children (between them) . The patient drinks rarely Tobacco: Never. ROS Negative except for HPI PHYSICAL EXAM: Temp: [36.7 ??C (98.1 ??F)] Heart Rate: [71-88] Resp: [18-23] BP: (102-110)/(62-67) SpO2: [93 %-96 %] Heart Rate from SpO2: [74 bpm] GEN: NAD. Resting comfortably. CV: RRR, normal S1 S2 sounds. CHEST: CTAB. No audible wheezing/rales/rhochi. ABD: Soft, NTND, surgical sites c/d/i BACK: No CVAT : Inguinal incisions c/d/I, slight erythema over and swelling over the left inguinal incision, penile incision c/d/I, bilateral inguinal drain with SS output LAB Recent Labs 07/19/23 1515 WBC 14.2* HGB 14.3 HCT 41.8 PLATELET 243 Recent Labs 07/19/23 1515 NA 140 K 4.4 CL 102 CO2 25 BUN 15 CREATININE 1.06 GLUCOSE 125 MICROBIOLOGY Drain culture 06/30 - NG Lab Results Component Value Date URINECULTURE No growth (Less than 1,000 cfu/ml). 03/18/[address] A/P (07/19/23) pending ASSESSMENT Eduardo Contreras is a 73 y.o. 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 Patient has been doing well since his follow up on 07/15. He presents to ED today with some non-specific symptoms including N/V, malaise, subjective chills for 1 day. In the ED he is afebrile, VSS. Patient is reporting that his symptoms are improving. He has some evidence of cellulitis on exam but overall appears clinically well. A CT scan is pending right now to rule out deep infection. PLANS - follow up on labs and CT A/P, if no gross abnormality ok to follow as outpatient as schedule - send bilateral surgical drain for culture, added to culture list - transition from Keflex QD to therapeutic antibiotics (e.g. Bactrim DS BID) if ruled out deep infection - follow up with Dr. Garcia as scheduled on 07/21/23 Addendum: CT A/P with concern for fluid collections around current drains that appear to suggest drain may not be fully functioning on left side. Will admit to Urology overnight for IV antibiotics and will flush his drain to ensure patency. Maury Loyd MD * ED Triage - Yael Arellano RN - 07/19/2023 11:[address] 06/24, lymphnodes removed. Per pt and family swelling and redness at incisions. Vomited this morning. No fever. Draining pinkish fluids per family this is different than it has been. [facility] PT today and they felt the incision need to be looked at. HPI (Adult) Stated Reason for Visit: swelling in groin - incisions with drain History Obtained From: patient documented in this encounter Plan of Treatment Upcoming Encounters Date Type Department Care Team (Late st Contact Info) Description 06/07/2024 1:00 PM EST TH Visit (TeleHealth) [place] [address] Zachary Garcia MD [facility] [address] 06/11/2024 9:00 AM EST Office Visit [place] [address] Caroline Espinoza OT 07/10/2024 8:00 AM EST Office [place] [address] Caroline Espinoza OT 07/24/2024 10:00 AM EST Office Visit [place] [address] EspinozaTiayl E, OT 08/07/2024 10:00 AM EST Office Visit Occupational Therapy at [facility] [place] [address] Espinoza Caroline E, OT 08/21/2024 10:00 AM EST Office Visit Occupational Therapy at [facility] [place] [address] Espinoza Caroline E, OT documented as of this encounter Procedures Procedure Name Priority Date/Time Associated Diagnosis Comments EKG 12-LEAD Routine 07/21/2023 10:56 AM EST QT prolongation HEMOGRAM Routine 07/21/2023 1:09 AM EST DIFFERENTIAL, AUTOMATED Routine 07/21/2023 1:09 AM EST CBC (WITH DIFF) Routine 07/21/2023 1:09 AM EST PHOSPHORUS Routine 07/21/2023 1:09 AM EST MAGNESIUM Routine 07/21/2023 1:09 AM EST BASIC METABOLIC PANEL Routine 07/21/2023 1:09 AM EST IR ALL DRAINAGE PROCEDURES Routine 07/20/2023 1:21 PM EST ANAEROBIC CULTURE Routine 07/20/2023 12: 54 PM EST ANAEROBIC CULTURE Routine 07/20/2023 12: 54 PM EST HC BODY FLUID CULTURE Routine 07/20/2023 12:54 PM EST HC BODY FLUID CULTURE Routine 07/20/2023 12:54 PM EST BODY FLUID CULTURE, AEROBIC Routine 07/20/2023 12:54 PM EST BODY FLUID CULTURE, AEROBIC Routine 07/20/2023 12:54 PM EST HEMOGRAM Routine 07/20/2023 12:50 AM EST DIFFERENTIAL, AUTOMATED Routine 07/20/2023 12:50 AM EST CBC (WITH DIFF) Routine 07/20/2023 12:50 AM EST PHOSPHORUS Routine 07/20/2023 12:50 AM EST MAGNESIUM Routine 07/20/2023 12:50 AM EST BASIC METABOLIC PANEL Routine 07/20/2023 12:50 AM EST L-LACTATE2 WHOLE BLOOD Routine 07/19/2023 5:13 PM EST ANAEROBIC CULTURE Routine 07/19/2023 4:4 8 PM EST ANAEROBIC CULTURE Routine 07/19/2023 4:4 8 PM EST HC GRAM STAIN FOR BACTERIA Routine 07/19/2023 4:48 PM EST HC GRAM STAIN FOR BACTERIA Routine 07/19/2023 4:48 PM EST BODY FLUID CULTURE, AEROBIC Routine 07/19/2023 4:48 PM EST BODY FLUID CULTURE, AEROBIC Routine 07/19/2023 4:[address] ABDOMEN AND PELVIS W CONTRAST STAT 07/19/2023 4:22 PM EST L-LACTATE2 WHOLE BLOOD Routine 07/19/2023 3:24 PM EST HEMOGRAM STAT 07/19/2023 3:15 PM EST DIFFERENTIAL, AUTOMATED STAT 07/19/2023 3:15 PM EST CBC (WITH DIFF) STAT 07/19/2023 3:15 PM EST BASIC METABOLIC PANEL STAT 07/19/2023 3:15 PM EST documented in this encounter Results * EKG 12 Lead (07/21/2023 10:56 AM EST) Ventricular rate 65 BPM MUSE SYSTEM Atrial Rate 65 BPM MUSE SYSTEM P-R Interval 142 ms MUSE SYSTEM QRS Duration 108 ms MUSE SYSTEM Q-T Interval 414 ms MUSE SYSTEM QTC Calculated (Bezet) 430 ms MUSE SYSTEM Calculated P [place] -90 degrees MUSE SYSTEM Calculated R [place] -28 degrees MUSE SYSTEM Calculated T [place] 28 degrees MUSE SYSTEM INTERPRETATION Unusual P axis, possible ectopic atrial rhythm Abnormal ECG No previous ECGs available Confirmed by MD PEACE SALVATORE ([id number]) on 07/21/2023 3:23:53 PM MUSE SYSTEM 07/21/2023 10:5 6 AM EST 07/21/2023 3:23 PM EST Zachary Garcia MD ECG ORDERABLES MUSE SYSTEM * (ABNORMAL) Differential, Automated (07/21/2023 1:09 AM EST) Neutrophil % 68.2 % [facility] Neutrophil Absolute 6.19(H) 1.70 - 6.10 x10(3)/mc L [facility] Lymph % 20.7 % [facility] Lymphocytes Abs 1.9 0.9 - 3.2 x10(3)/mc L [facility] Monocyte % 8.0 % [facility] Monocyte Abs 0.7 0.3 - 0.9 x10(3)/mc L [facility] Eos % 2.1 % [facility] Eosinophils Abs 0.2 0.0 - 0.4 x10(3)/mc L [facility] Basophil % 0.6 % [facility] Baso Absolute 0.0 0.0 - 0.1 x10(3)/mc L [facility] Immature Gran % 0.40 % [facility] Comment: Immature granulocytes(IG's)percentage and absolute count will include metamyelocytes, myelocytes, and promyelocytes. Blood smears from CBCs yielding IG's will be scanned manually for concordance. If this scan disagrees with the automated IG or if promyelocytes are noted, a manual differential will be performed. Immature Gran Absolute 0.04 0.00 - 0.04 x10(3)/mc L [facility] Blood 07/21/2023 1:09 AM EST 07/21/2023 1:14 AM EST Narrative Resulting Agency Comment Spec In Lab Maury Loyd MD HEMATOLOGY ORDERABLE S [facility] [place] [address] * (ABNORMAL) Hemogram (07/21/2023 1:09 AM EST) White Blood Cell 9.1 4.0 - 9.5 x10(3)/mc L [facility] Red Blood Cell 4.00(L) 4.58 - 5.54 x10(6)/mc L [facility] Hemoglobin 12.2(L) 13.7 - 16.5 g/dL [facility] Hematocrit 35.4(L) 40.5 - 48.5 % [facility] Mean Cell Volume 88.5 82.9 - 93.1 fL [facility] Mean Cell Hemoglobin 30.5 27.5 - 32.1 pg [facility] Mean Cell Hemoglobin Concentration 34.5 32.0 - 35.7 g/dL [facility] Platelet 169 145 - 357 x10(3)/mc L [facility] RDW Standard Deviation 39.0 36.0 - 45.0 fL [facility] RDW coefficient of variation 12.0 11.4 - 13.8 % [facility] Mean Platelet Volume 9.8 7.6 - 12.9 fL [facility] NRBC% auto 0.0 % [facility] NRBC Absolute 0.000 0.000 - 0.000 x10(3)/mc L [facility] Blood 07/21/2023 1:09 AM EST 07/21/2023 1:14 AM EST Narrative Resulting Agency Comment Spec In Lab Maury Loyd MD HEMATOLOGY ORDERABLE S [facility] [place] [address] * (ABNORMAL) Basic Metabolic Panel (non-fasting) (07/21/2023 1:09 AM EST) Glucose 132 65 - 199 mg/dL [facility] Comment:Diabetes: >=200 mg/d L plus symptoms Blood Urea Nitrogen 16 10 - 20 mg/dL [facility] Creatinine 1.02 0.80 - 1.50 mg/dL [facility] Sodium 138 135 - 145 mmol/L [facility] Potassium 4.3 3.5 - 5.0 mmol/L [facility] Comment: Please note: ??Patients with WBC >100,000 may have falsely elevated Potassium levels. ??For accurate Potassium quantification in these patients send serum separator tube (gold top) for subsequent determinations. ??Contact the Clinical Chemistry Laboratory if there are any questions. Chloride 105 98 - 107 mmol/L [facility] Carbon Dioxide 24 22 - 31 mmol/L [facility] Anion Gap 9 5 - 15 mmol/L [facility] Calcium 8.0(L) 8.5 - 10.5 mg/dL [facility] Est Glomerular Filtration Rate 78 >=60 mL/min/1. 73 m?? [facility] Comment: This patient's estimated GFR was calculated using the 2020 CKD-EPI equation. The estimated GFR can vary from the measured GFR by up to 30% in the absence of rapidly changing kidney function. Assessment of the estimated GFR is not appropriate when creatinine concentrations are rapidly changing. For clinical situations in which a more precise estimate of GFR is necessary, consider alternative methods of GFR estimation such as a 24-hour urine creatinine clearance. Assignment of CKD stage 1-5 for patients with an eGFR near the transition point between stages may be based on clinical assessment of muscle mass and symptoms in addition to eGFR. Blood 07/21/2023 1:09 AM EST 07/21/2023 1:14 AM EST Narrative Resulting Agency Comment Spec In Lab Manjula Desai MD CHEMISTRY ORDERABLE S [facility] [place] [address] * Magnesium (07/21/2023 1:09 AM EST) Magnesium 0.91 0.69 - 1.07 mmol/L [facility] Blood 07/21/2023 1:09 AM EST 07/21/2023 1:14 AM EST Narrative Resulting Agency Comment Spec In Lab Manjula Desai MD CHEMISTRY ORDERABLE S Performing Organization Address [facility] Co de Phone Number [facility] [place] [address] * Phosphorus (07/21/2023 1:09 AM EST) Phosphorus 3.4 2.5 - 4.5 mg/dL [facility] Blood 07/21/2023 1:09 AM EST 07/21/2023 1:14 AM EST Narrative Resulting Agency Comment Spec In Lab Manjula Desai MD CHEMISTRY ORDERABLE S Performing Organization Address [facility] [place] [address] * IR All Drainage Procedures (07/20/2023 1:21 PM EST) Anatomical Region Laterality Modality X-Ray Angiograph y Narrative 07/20/2023 1:11 PM EST INTERVENTIONAL RADIOLOGY PROCEDURE NOTE Procedure: Bilateral Groin / Thigh Subcutaneous Collections Drainage Catheter Placements Indication for Procedure: ??Penile SCC status post partial penectomy/bilateral ILND (06/24/23) with bilateral inguinal drains. He presented to the ED 07/19/23 with subjective chills, N/V, and erythema of the surgical site. He was admitted to urology and started on vancy/zosyn. ?? Found to have bilateral groin / thigh collections on CT. Informed Consent: After discussing risks (including infection, trauma / damage to surrounding structures, hemorrhage, non-success, amongst others), and benefits of the procedure, the patient consented to the procedure. Monitoring and Sedation Details: Due to the painful nature of the procedure, patient received split doses of intravenous fentanyl and versed from the IR nurse while pulse, pressure, end tidal CO2 parameters and oxygen saturation were continuously monitored. Procedure Events and Technique: A standard time-out was conducted just before the start of the procedure to verify all mayfield aspects; including the correct patient and planned procedure, procedure location, informed consent, and all relevant critical information, all of which were correct. The patient was positioned supine on the procedure table. ??The bilateral thighs / groins was cleaned and prepped in typical sterile fashion; maximal sterile barrier technique was used throughout. ?? The procedure was performed under sonographic guidance. ??The right collection was identified with sonography and images were stored. ??Local anesthesia was obtained with 1% lidocaine injected subcutaneously via a 25-gauge needle. ??Under realtime sonographic guidance an 18-gauge needle was advanced into the collection. ??An 0.035 Amplatz wire was advanced under sonographic guidance. ??The tract was dilated and a 10.2-Fr drainage catheter was placed. ??The collection was aspirated. ??Repeat sonographic image was obtained. ??The catheter was sutured in placed with 2-0 Prolene. ?? The catheter was connected to bulb drainage. The procedure was repeated on the left. ?? Medications: Fentanyl 100 mcg IV, Versed 2 mg IV, 1% Lidocaine <10 cc subcutaneous. Contrast: None. Fluoroscopic Time: None. Estimated Blood Loss: < 5 cc. Complications: ??No immediate. Findings: Bilateral groin / thigh subcutaneous collections, hypoechoic with multiple internal septations, left larger than right. Placement of a 10.2-Fr drainage catheter into left collection; 10 cc of clear, serous fluid removed. ??Sample sent for gram stain and culture. ?? Placement of a 10.2-Fr drainage catheter into right collection; 5 cc of pink-tinged, serous fluid removed. ??Sample sent for gram stain and culture. ?? Impression: Successful bilateral groin / thigh subcutaneous collections drainage catheter placements. Resident/Fellow: Dr. Salvador Jaime. Attending: Dr. Epifanio Coley. I, Dr. Coley, was present throughout the procedure. I was present during the intraservice time as documented by the IR Nurse. ?? Zachary Garcia MD [facility] ORDERABLES * Anaerobic Culture (07/20/2023 12:54 PM EST) Anaerobic Culture No anaerobic organisms isolated [facility] Fluid 07/20/2023 12:5 4 PM EST 07/20/2023 1:53 PM EST Comment:From right thigh flu id collection Narrative Resulting Agency Comment Spec In Lab Nahomy GALVEZ MICROBIOLOGY - GENER AL ORDERABLES Performing Organization Address [facility] Co de Phone Number [facility] [place] [address] * (ABNORMAL) Body Fluid Culture, Aerobic (07/20/2023 12:54 PM EST) Body Fluid Culture Rare Beta Hemolytic Streptococci, Group B(A) [facility] Gram Stain Cytocentrifuge Gram Stain performed Neutrophils seen Rare Gram Positive Cocci seen (A) [facility] Organism Beta Hemolytic Streptococci, Group B(A) [facility] Organism Gram Positive Cocci(A) [facility] Fluid 07/20/2023 12:5 4 PM EST 07/20/2023 1:53 PM EST Comment:From right thigh flu id collection Narrative Resulting Agency Comment Spec In Lab Nahomy GALVEZ MICROBIOLOGY - GENER AL ORDERABLES Performing Organization Address [facility] Co de Phone Number [facility] [place] [address] * Anaerobic Culture (07/20/2023 12:54 PM EST) Anaerobic Culture No anaerobic organisms isolated [facility] Fluid 07/20/2023 12:5 4 PM EST 07/20/2023 1:53 PM EST Comment:From left thigh flui d collection Narrative Resulting Agency Comment Spec In Lab Nahomy GALVEZ MICROBIOLOGY - GENER AL ORDERABLES Performing Organization Address City/[facility] Co de Phone Number [facility] [place] [address] * (ABNORMAL) Body Fluid Culture, Aerobic (07/20/2023 12:54 PM EST) Body Fluid Culture Rare Beta Hemolytic Streptococci, Group B(A) [facility] Gram Stain Cytocentrifuge Gram Stain performed Neutrophils seen Moderate Gram Positive Cocci seen (A) [facility] Organism Beta Hemolytic Streptococci, Group B(A) [facility] Fluid 07/20/2023 12:5 4 PM EST 07/20/2023 1:53 PM EST Comment:From left thigh flui d collection Narrative Resulting Agency Comment Spec In Lab Nahomy GALVEZ MICROBIOLOGY - GENER AL ORDERABLES [facility] [place] [address] * (ABNORMAL) Differential, Automated (07/20/2023 12:50 AM EST) Neutrophil % 75.4 % [facility] Neutrophil Absolute 8.50(H) 1.70 - 6.10 x10(3)/mc L [facility] Lymph % 14.6 % [facility] Lymphocytes Abs 1.6 0.9 - 3.2 x10(3)/mc L [facility] Monocyte % 8.5 % [facility] Monocyte Abs 1.0(H) 0.3 - 0.9 x10(3)/mc L [facility] Eos % 0.6 % [facility] Eosinophils Abs 0.1 0.0 - 0.4 x10(3)/mc L [facility] Basophil % 0.4 % [facility] Baso Absolute 0.0 0.0 - 0.1 x10(3)/mc L [facility] Immature Gran % 0.50 % [facility] Comment: Immature granulocytes(IG's)percentage and absolute count will include metamyelocytes, myelocytes, and promyelocytes. Blood smears from CBCs yielding IG's will be scanned manually for concordance. If this scan disagrees with the automated IG or if promyelocytes are noted, a manual differential will be performed. Immature Gran Absolute 0.06(H) 0.00 - 0.04 x10(3)/mc L [facility] Blood 07/20/2023 12:5 0 AM EST 07/20/2023 1:11 AM EST Narrative Resulting Agency Comment Spec In Lab Maury Loyd MD HEMATOLOGY ORDERABLE S Performing Organization Address City/[facility]/[place] [address] * (ABNORMAL) Hemogram (07/20/2023 12:50 AM EST) White Blood Cell 11.3(H) 4.0 - 9.5 x10(3)/mc L [facility] Red Blood Cell 4.32(L) 4.58 - 5.54 x10(6)/mc L [facility] Hemoglobin 13.0(L) 13.7 - 16.5 g/dL [facility] Hematocrit 38.0(L) 40.5 - 48.5 % [facility] Mean Cell Volume 88.0 82.9 - 93.1 fL [facility] Mean Cell Hemoglobin 30.1 27.5 - 32.1 pg [facility] Mean Cell Hemoglobin Concentration 34.2 32.0 - 35.7 g/dL [facility] Platelet 195 145 - 357 x10(3)/mc L [facility] RDW Standard Deviation 39.9 36.0 - 45.0 fL [facility] RDW coefficient of variation 12.2 11.4 - 13.8 % [facility] Mean Platelet Volume 10.2 7.6 - 12.9 fL [facility] NRBC% auto 0.0 % [facility] NRBC Absolute 0.000 0.000 - 0.000 x10(3)/mc L [facility] Blood 07/20/2023 12:5 0 AM EST 07/20/2023 1:11 AM EST Narrative Resulting Agency Comment Spec In Lab Maury Loyd MD HEMATOLOGY ORDERABLE S Performing Organization Address City/State/[facility] Co de Phone Number [facility] [place] [address] * (ABNORMAL) Basic Metabolic Panel (non-fasting) (07/20/2023 12:50 AM EST) Glucose 122 65 - 199 mg/dL [facility] Comment:Diabetes: >=200 mg/d L plus symptoms Blood Urea Nitrogen 14 10 - 20 mg/dL [facility] Creatinine 0.90 0.80 - 1.50 mg/dL [facility] Sodium 137 135 - 145 mmol/L [facility] Potassium 4.2 3.5 - 5.0 mmol/L [facility] Comment: Please note: ??Patients with WBC >100,000 may have falsely elevated Potassium levels. ??For accurate Potassium quantification in these patients send serum separator tube (gold top) for subsequent determinations. ??Contact the Clinical Chemistry Laboratory if there are any questions. Chloride 103 98 - 107 mmol/L [facility] Carbon Dioxide 23 22 - 31 mmol/L [facility] Anion Gap 11 5 - 15 mmol/L [facility] Calcium 8.3(L) 8.5 - 10.5 mg/dL [facility] Est Glomerular Filtration Rate 91 >=60 mL/min/1. 73 m?? [facility] Comment: This patient's estimated GFR was calculated using the 2020 CKD-EPI equation. The estimated GFR can vary from the measured GFR by up to 30% in the absence of rapidly changing kidney function. Assessment of the estimated GFR is not appropriate when creatinine concentrations are rapidly changing. For clinical situations in which a more precise estimate of GFR is necessary, consider alternative methods of GFR estimation such as a 24-hour urine creatinine clearance. Assignment of CKD stage 1-5 for patients with an eGFR near the transition point between stages may be based on clinical assessment of muscle mass and symptoms in addition to eGFR. Blood 07/20/2023 12:5 0 AM EST 07/20/2023 1:11 AM EST Narrative Resulting Agency Comment Spec In Lab Manjula Desai MD CHEMISTRY ORDERABLE S [facility] [place] [address] * Magnesium (07/20/2023 12:50 AM EST) Magnesium 0.77 0.69 - 1.07 mmol/L [facility] Blood 07/20/2023 12:5 0 AM EST 07/20/2023 1:11 AM EST Narrative Resulting Agency Comment Spec In Lab Manjula Desai MD CHEMISTRY ORDERABLE S [facility] [place] [address] * Phosphorus (07/20/2023 12:50 AM EST) Phosphorus 3.0 2.5 - 4.5 mg/dL [facility] Blood 07/20/2023 12:5 0 AM EST 07/20/2023 1:11 AM EST Narrative Resulting Agency Comment Spec In Lab Manjula Desai MD CHEMISTRY ORDERABLE S Performing Organization Address [facility] de Phone Number [facility] [place] [address] * L-Lactate2 Whole Blood (07/19/2023 5:13 PM EST) Lactate WB 2.0 0.5 - 2.2 mmol/L [facility] Blood 07/19/2023 5:13 PM EST 07/19/2023 5:13 PM EST Manjula Desai MD CHEMISTRY ORDERABLE S Performing Organization Address [facility] de Phone Number [facility] [place] [address] * Anaerobic Culture (07/19/2023 4:48 PM EST) Anaerobic Culture No anaerobic organisms isolated [facility] Fluid 07/19/2023 4:48 PM EST 07/19/2023 5:58 PM EST Comment:Right inguinal drain Narrative Resulting Agency Comment Spec In Lab Christa Richter MD MICROBIOLOGY - GENER AL ORDERABLES Performing Organization Address [facility] de Phone Number [facility] [place] [address] * (ABNORMAL) Body Fluid Culture, Aerobic (07/19/2023 4:48 PM EST) Body Fluid Culture Rare Acinetobacter junii/johnsonii Rare Stenotrophomonas maltophilia Rare mixed Gram Positive organisms (A) [facility] Gram Stain Cytocentrifuge Gram Stain performed No Neutrophils seen. No microorganisms seen. (A) [facility] Organism Acinetobacter junii/johnsonii(A) [facility] Organism Stenotrophomonas maltophilia(A) [facility] Fluid 07/19/2023 4:48 PM EST 07/19/2023 5:58 PM EST Comment:Right inguinal drain Narrative Resulting Agency Comment Spec In Lab Organism Antibiotic Method Susceptibility Acinetobacter junii Ampicillin + Sulbactam VITEK 2 MET HOD Sensitive Acinetobacter junii Ceftazidime VITEK 2 METHOD Sensitive Acinetobacter junii Ceftriaxone VITEK 2 METHOD Sensitive Acinetobacter junii Gentamicin VITEK 2 METHOD Sensitive Acinetobacter junii Levofloxacin VITEK 2 METHOD Sensitive Acinetobacter junii Meropenem VITEK 2 METHOD Sensitive Acinetobacter junii Tetracycline VITEK 2 METHOD Sensitive Acinetobacter junii Tobramycin VITEK 2 METHOD Sensitive Acinetobacter junii Trimethoprim/Sulfa VITEK 2 METHOD Sensitive Stenotrophomonas maltophilia Ceftazidime MICROSCAN ME THOD Sensitive Stenotrophomonas maltophilia Levofloxacin MICROSCAN ME THOD Sensitive Comment:Contact the laboratory if use of Minocycline is necessary. Stenotrophomonas maltophilia Trimethoprim/Sulfa MICROS CAN METHOD Sensitive Christa Richter MD MICROBIOLOGY - GENER AL ORDERABLES Performing Organization Address [facility] Co de Phone Number [facility] [place] [address] * Anaerobic Culture (07/19/2023 4:48 PM EST) Anaerobic Culture No anaerobic organisms isolated [facility] Fluid 07/19/2023 4:48 PM EST 07/19/2023 5:56 PM EST Comment:Left inguinal drain Narrative Resulting Agency Comment Spec In Lab Christa Richter MD MICROBIOLOGY - GENER AL ORDERABLES Performing Organization Address [facility] Co de Phone Number [facility] [place] [address] * (ABNORMAL) Body Fluid Culture, Aerobic (07/19/2023 4:48 PM EST) Body Fluid Culture Rare Acinetobacter junii/johnsonii : Susceptibilities previously reported Rare Stenotrophomonas maltophilia : Susceptibilities previously reported Rare mixed Gram Positive organisms including : Rare Beta Hemolytic Streptococci, Group B (A) [facility] Gram Stain Cytocentrifuge Gram Stain performed Neutrophils seen Rare Gram Positive Cocci seen Rare Gram Negative Rods seen (A) [facility] Organism Acinetobacter junii/johnsonii(A) [facility] Organism Stenotrophomonas maltophilia(A) [facility] Organism Beta Hemolytic Streptococci, Group B(A) [facility] Organism Gram Positive Cocci(A) [facility] Organism Gram Negative Rods(A) [facility] Fluid 07/19/2023 4:48 PM EST 07/19/2023 5:56 PM EST Comment:Left inguinal drain Narrative Resulting Agency Comment Spec In Lab Christa Richter MD MICROBIOLOGY - GENER AL ORDERABLES [facility] [place] [address] * (ABNORMAL) CT Abdomen & Pelvis w Contrast (07/19/2023 4:22 PM EST) Anatomical Region Laterality Modality Abdomen, Pelvis Computed Tomogra phy Impressions 07/19/2023 4:40 PM EST 1. ??Postsurgical changes in the inguinal regions and lower pelvic anterior abdominal wall, extending into the upper scrotum, with diffuse fat stranding which may indicate cellulitis or inflammation. 2. ??Large, irregularly-shaped fluid collection surrounding the left surgical drain suspicious for abscess. Smaller fluid collection surrounds the right surgical drain. 3. ??Hepatomegaly with marked hepatic steatosis. 4. ??Unexpected finding of nonocclusive mural thrombus along the medial wall of the right common femoral vein. 5. ??Small volume free intraperitoneal fluid of uncertain etiology and significance. Thank you for letting us participate in the care of this patient. ??If you are a health care provider and have any questions regarding this report, please contact the number below. ??For patients who have questions please contact the health lawn care technician that requested your imaging first. ? 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 Administered 100.0 ml of OMNIPAQUE 350.00 mg/ml. Oral contrast was not administered. COMPARISON: PET/CT 06/21/2023 FINDINGS: Lower chest: Normal. Liver: Enlarged to 21.5 cm. Diffuse, marked low attenuation (39 Hounsfield units). Slightly higher attenuation abutting the gallbladder fossa may be focal fatty sparing. Widely patent hepatic and portal veins. Bile ducts: Nondilated. Gallbladder: No calcified gallstones. Normal caliber wall. Pancreas: Normal attenuation without ductal dilatation. Spleen: Normal. Adrenals: Normal. Kidneys: 3.1 cm right lower pole simple cyst has a solitary thin septation best appreciated on thin section images consistent with Bosniak 2 lesion. Several punctate low-attenuation left renal lesions are too small to characterize. Urinary Bladder: Nondistended. No wall thickening or calculi. Vasculature: 20 mm length thin mural filling defect along the medial wall of the right common femoral vein. Normal caliber aorta. Lymph Nodes: No enlarged lymph nodes. Bowel: Unremarkable stomach and duodenum. No dilated small or large bowel loops or bowel wall thickening. Normal terminal ileum and appendix. Peritoneum and retroperitoneum: Small volume free intraperitoneal fluid in the pelvic cul-de-sac measures simple fluid attenuation. There is no free intraperitoneal air or mesenteric inflammation. Abdominal wall: Moderate subcutaneous fat stranding in the anterior upper thighs and lower anterior pelvic abdominal wall. There are percutaneous surgical drains within the inguinal regions extending into the proximal thighs bilaterally. 14.1 x 7.1 x 2.4 cm irregularly shaped, peripherally enhancing fluid collection in the left inguinal region surrounding the drain. On the right, only minimal fluid surrounds the surgical drain, most voluminous anteromedially where it measures 6.0 x 1.1 x 3.1 cm. No subcutaneous emphysema. There are surgical clips in the upper scrotum. Small left hydrocele. Reproductive organs: Prostate not significantly enlarged. Osseous structures: No suspicious lesions. Resulting Agency Comment Unexpected Finding Manjula Desai MD IMG CT ORDERABLES * L-Lactate2 Whole Blood (07/19/2023 3:24 PM EST) Lactate WB 2.2 0.5 - 2.2 mmol/L [facility] Blood 07/19/2023 3:24 PM EST 07/19/2023 3:24 PM EST Manjula Desai MD CHEMISTRY ORDERABLE S [facility] [place] [address] * (ABNORMAL) Differential, Automated (07/19/2023 3:15 PM EST) Neutrophil % 80.7 % [facility] Neutrophil Absolute 11.45(H) 1.70 - 6.10 x10(3)/mc L [facility] Lymph % 11.7 % [facility] Lymphocytes Abs 1.7 0.9 - 3.2 x10(3)/mc L [facility] Monocyte % 6.6 % [facility] Monocyte Abs 0.9 0.3 - 0.9 x10(3)/mc L [facility] Eos % 0.1 % [facility] Eosinophils Abs 0.0 0.0 - 0.4 x10(3)/mc L [facility] Basophil % 0.2 % [facility] Baso Absolute 0.0 0.0 - 0.1 x10(3)/mc L [facility] Immature Gran % 0.70 % [facility] Comment: Immature granulocytes(IG's)percentage and absolute count will include metamyelocytes, myelocytes, and promyelocytes. Blood smears from CBCs yielding IG's will be scanned manually for concordance. If this scan disagrees with the automated IG or if promyelocytes are noted, a manual differential will be performed. Immature Gran Absolute 0.10(H) 0.00 - 0.04 x10(3)/mc L [facility] Blood 07/19/2023 3:15 PM EST 07/19/2023 3:38 PM EST Narrative Resulting Agency Comment Spec In Lab Marjan Ocampo [facility] HEMATOLOGY ORDERABL ES [facility] [place] [address] * (ABNORMAL) Hemogram (07/19/2023 3:15 PM EST) White Blood Cell 14.2(H) 4.0 - 9.5 x10(3)/mc L [facility] Red Blood Cell 4.70 4.58 - 5.54 x10(6)/mc L [facility] Hemoglobin 14.3 13.7 - 16.5 g/dL [facility] Hematocrit 41.8 40.5 - 48.5 % [facility] Mean Cell Volume 88.9 82.9 - 93.1 fL [facility] Mean Cell Hemoglobin 30.4 27.5 - 32.1 pg [facility] Mean Cell Hemoglobin Concentration 34.2 32.0 - 35.7 g/dL [facility] Platelet 243 145 - 357 x10(3)/mc L [facility] RDW Standard Deviation 40.5 36.0 - 45.0 fL [facility] RDW coefficient of variation 12.3 11.4 - 13.8 % [facility] Mean Platelet Volume 10.1 7.6 - 12.9 fL [facility] NRBC% auto 0.0 % [facility] NRBC Absolute 0.000 0.000 - 0.000 x10(3)/mc L [facility] Blood 07/19/2023 3:15 PM EST 07/19/2023 3:38 PM EST Narrative Resulting Agency Comment Spec In Lab Marjan Ocampo [facility] HEMATOLOGY ORDERABL ES [facility] [place] [address] * Basic Metabolic Panel (non-fasting) (07/19/2023 3:15 PM EST) Glucose 125 65 - 199 mg/dL [facility] Comment:Diabetes: >=200 mg/d L plus symptoms Blood Urea Nitrogen 15 10 - 20 mg/dL [facility] Creatinine 1.06 0.80 - 1.50 mg/dL [facility] Sodium 140 135 - 145 mmol/L [facility] Potassium 4.4 3.5 - 5.0 mmol/L [facility] Comment: Please note: ??Patients with WBC >100,000 may have falsely elevated Potassium levels. ??For accurate Potassium quantification in these patients send serum separator tube (gold top) for subsequent determinations. ??Contact the Clinical Chemistry Laboratory if there are any questions. Chloride 102 98 - 107 mmol/L [facility] Carbon Dioxide 25 22 - 31 mmol/L [facility] Anion Gap 13 5 - 15 mmol/L [facility] Calcium 8.8 8.5 - 10.5 mg/dL [facility] Est Glomerular Filtration Rate 75 >=60 mL/min/1. 73 m?? [facility] Comment: This patient's estimated GFR was calculated using the 2020 CKD-EPI equation. The estimated GFR can vary from the measured GFR by up to 30% in the absence of rapidly changing kidney function. Assessment of the estimated GFR is not appropriate when creatinine concentrations are rapidly changing. For clinical situations in which a more precise estimate of GFR is necessary, consider alternative methods of GFR estimation such as a 24-hour urine creatinine clearance. Assignment of CKD stage 1-5 for patients with an eGFR near the transition point between stages may be based on clinical assessment of muscle mass and symptoms in addition to eGFR. Blood 07/19/2023 3:15 PM EST 07/19/2023 3:38 PM EST Narrative Resulting Agency Comment Spec In Lab Manjula Desai MD CHEMISTRY ORDERABLE S [facility] [place] [address] documented in this encounter Visit Diagnoses Diagnosis Intra-abdominal fluid collection- Primary Other ascites Intra-abdominal fluid collection Other ascites Penile cancer Malignant neoplasm of penis, part unspecified QT prolongation Nonspecific abnormal electrocardiogram (ECG) (EKG) Surgical site infection Penile cancer Malignant neoplasm of penis, part unspecified documented in this encounter Admitting Diagnoses Diagnosis Intra-abdominal fluid collection Other ascites Surgical site infection Penile cancer Malignant neoplasm of penis, part unspecified documented in this encounter Administered Medications Inactive Administered Medications - up to 3 most recent administrations Medication Order MAR Action Action Date Dose Rate Site acetaminophen (Tylenol) tablet 650 mg 650 mg, Oral, EVERY 4 HOURS PRN, Starting on Tue07/19/23 at 1844, Until Saida 07/21/23 at 1759, Pain, for MILD pain (1-3), Maximum dose of acetaminophen is 4,000 mg from all sources in 24 hours. When ordered for pain, acetaminophen should be given even when other ordered pain medications are indicated., Routine Given 07/20/2023 8:00 PM EST 650 mg apixaban (Eliquis) tablet 5 mg 5 mg, Oral, 2 TIMES DAILY, First dose on Tue07/19/23 at 2100, Until Discontinued, Anticoagulant, Routine, Restricted anticoagulant, choose the most appropriate response: Continuation of ongoing therapy Given 07/21/2023 8:46 AM EST 5 mg Given 07/20/2023 8:00 PM EST 5 mg Given 07/20/2023 9:42 AM EST 5 mg fentaNYL (pf) (50 mcg/mL) multi-dose injection 25-50 mcg 25-50 mcg, Intravenous, EVERY 3 MIN PRN, Starting on Tue07/20/23 at 1218, Until Tue07/20/23 at 1345, Pain, per unit protocol, For use in [...] mcg/dose, 250 mcg/hour, Angio/IR (Intra-Procedure), Routine Given 07/20/2023 12:53 PM EST 25 mcg Given 07/20/2023 12:44 PM EST 50 mcg Given 07/20/2023 12:37 PM EST 25 mcg iohexoL (Omnipaque) (350 mg/mL) solution 0-200 mL 0-200 mL, Intravenous, ONCE PRN, 1 dose, Starting on Tue07/19/23 at 1622, Until Tue07/19/23 at 1622, Per Protocol, Warning Vesicant/Irritant Medication , Radiology Contrast, Routine Given 07/19/2023 4:22 PM EST 100 mLs lactated ringers infusion 50 mL/hr, Intravenous, CONTINUOUS, Starting on Tue07/19/23 at 1846, Until Saida 07/21/23 at 1759, Recovery (Recovery-Hospital Unit) New Bag 07/21/2023 6:20 AM EST 50 mL/hr 50 mL/ hr New Bag 07/19/2023 7:57 PM EST 50 mL/hr 50 mL/hr magnesium sulfate 2 g in sterile water 50 mL infusion 2 g, Intravenous, ONCE, 1 dose, On Tue07/20/23 at 1400, Administer over 120 Minutes New Bag 07/20/2023 2:15 PM EST 2 g 25 mL/hr midazolam (pf) (Versed) (1 mg/mL) multi-dose injection 0.5-1 mg 0.5-1 mg, Intravenous, EVERY 3 MIN PRN, Starting on Tue07/20/23 at 1218, Until Tue07/20/23 at 1345, Sedation, For use in Interventional Radiology (IR) [...] mg/dose, 5 mg/hour., Angio/IR (Intra-Procedure), Routine Given 07/20/2023 12:53 PM EST 0.5 mg Given 07/20/2023 12:41 PM EST 1 mg Given 07/20/2023 12:37 PM EST 0.5 mg piperacillin-tazobactam (Zosyn) 3.375 g vial attach to sodium chloride 0.9% 50 mL Mini-Bag Plus 3.375 g, Intravenous, EVERY 8 HOURS, First dose on Tue07/19/23 at 1846, Until Discontinued, Administer over 4 Hours, Warning Vesicant/Irritant Medication Do not administer or Y-site with lactated ringers., Indication for (Active or Suspected): Prophylaxis New Bag 07/21/2023 6:20 AM EST 3.375 g 12.5 mL /hr New Bag 07/20/2023 9:34 PM EST 3.375 g 12.5 mL/hr New Bag 07/20/2023 2:15 PM EST 3.375 g 12.5 mL/hr sodium chloride 0.9 % (flush) (BD PosiFlush Normal Saline 0.9) flush 5 mL 5 mL, Intravenous, 2 TIMES DAILY, First dose on Tue07/19/23 at 2100, Until Discontinued, Recovery (Recovery-Hospital Unit), Routine Given 07/21/2023 8:46 AM EST 5 mLs Given 07/20/2023 8:00 PM EST 5 mLs Given 07/20/2023 9:48 AM EST 5 mLs sodium chloride 0.9 % (flush) (BD PosiFlush Normal Saline 0.9) flush 5-20 mL 5-20 mL, Intravenous, EVERY 1 MIN PRN, Starting on Tue07/19/23 at 1844, Until Tue07/21/23 at 1759, flush, Flush pertains to all indwelling lines. Flush per protocol found in the job aid using the link provided on this medication record., Recovery (Recovery-Hospital Unit), Routine Given 07/19/2023 7:58 PM EST 5 mLs vancomycin (Vancocin) - dosing by trough NOT APPLICABLE, PER PHARMACY, Other, Starting on Tue07/20/23 at 0644, Until Tue07/21/23 at 1759, This order serves as a placeholder on the MAR to indicate this patient is receiving vancomycin dosed as directed by trough calculations. Warning Vesicant/Irritant Medication vancomycin (Vancocin) 1 gram in sodium chloride 0.9% 250 mL infusion 1 g, Intravenous, at 250 mL/hr, EVERY 12 HOURS, 2 doses, First dose on Tue07/19/23 at 1930, Last dose on Tue07/20/23 at 0730, Do not exceed 1 gram/hour. *Beta-lactam based antibiotics (eg. Ampicillin, ceFAZolin, Aztreonam) should be administered within 4 hours of the preceding intraoperative dose. *Vancomycin, Fluoroquinolones, Clindamycin, Gentamicin, and metroNIDAZOLE should be administered within 8 hours of the preceding intraoperative dose., Routine, Indication for (Active or Suspected): Prophylaxis New Bag 07/19/2023 7:57 PM EST 1 g 250 mL/ hr vancomycin (Vancocin) 1 gram in sodium chloride 0.9% 250 mL infusion 1 g, Intravenous, at 250 mL/hr, EVERY 18 HOURS, First dose (after last modification) on Tue07/20/23 at 0800, Until Discontinued, Do not exceed 1 gram/hour., Routine, Indication for (Active or Suspected): Skin/Skin Structure New Bag 07/21/2023 2:00 AM EST 1 g 250 mL/hr New Bag 07/20/2023 9:42 AM EST 1 g 250 mL/hr documented in this encounter Active and Recently Administered Medications Times are shown in EST. Scheduled Medication Order 07/19/2023 07/20/2023 07/21/2023 apixaban (Eliquis) tablet 5 mg 5 mg, Oral, 2 TIMES DAILY, First dose on Tue07/19/23 at 2100, Until Discontinued, Anticoagulant, Routine, Restricted anticoagulant, choose the most appropriate response: Continuation of ongoing therapy 2007 (Given - Provider: Olivier Chung RN) 0942 (Given - Provider: Kinga Magana RN)1999 (Given - Provider: Marjan Curiel LPN) 0846 (Given - Provider: Kinga Magana RN) magnesium sulfate 2 g in sterile water 50 mL infusion (COMPLETED) 2 g, Intravenous, ONCE, 1 dose, On Tue07/20/23 at 1400, Administer over 120 Minutes 1415 (New Bag - Provider: Marjan Curiel LPN)1615 (Stopped - Provider: Kinga Magana RN) piperacillin-tazobactam (Zosyn) 3.375 g vial attach to sodium chloride 0.9% 50 mL Mini-Bag Plus 3.375 g, Intravenous, EVERY 8 HOURS, First dose on Tue07/19/23 at 1846, Until Discontinued, Administer over 4 Hours, Warning Vesicant/Irritant Medication Do not administer or Y-site with lactated ringers., Indication for (Active or Suspected): Prophylaxis 1845 (Due) 0349 (New Bag - Provider: Diane Gunderson RN - Comment: med sent from pharmacy now)0749 (Stopped - Provider: Kinga Magana RN)1415 (New Bag - Provider: Marjan Curiel LPN - Comment: pt went to IR for drain placement)1814 (Stopped - Provider: Kinga Magana RN)213 (New Bag - Provider: Diane Gunderson RN) 0134 (Stopped - Provider: Diane Gunderson RN)0620 (New Bag - Provider: Diane Gunderson RN)1020 (Stopped - Provider: Kinga Magana RN)1430 (Not Given - Provider: Kinga Magana RN - Reason: See comment - Comment: pt discharging) senna-docusate (Pericolace) 8.6-50 mg per tablet 2 tablet 2 tablet, Oral, 2 TIMES DAILY, First dose on Tue07/19/23 at 2100, Until Discontinued, Hold for loose stool. , Routine 2100 (Not Given - Provider: Olivier Chung RN - Reason: Patient/family refused) 0939 (Not Given - Provider: Kinga Magana RN - Reason: Patient/family refused)2099 (Not Given - Provider: Marjan Curiel LPN - Reason: Patient/family refused) 0846 (Not Given - Provider: Kinga Magana RN - Reason: Patient/family refused) sodium chloride 0.9 % (flush) (BD PosiFlush Normal Saline 0.9) flush 5 mL 5 mL, Intravenous, 2 TIMES DAILY, First dose on Tue07/19/23 at 2100, Until Discontinued, Recovery (Recovery-Hospital Unit), Routine 2100 (Hold - Provider: Olivier Chung RN - Reason: See comment - Comment: duplicate order) 0948 (Given - Provider: Kinga Magana RN)1999 (Given - Provider: Marjan Curiel LPN) 0846 (Given - Provider: Kinga Magana RN) vancomycin (Vancocin) 1 gram in sodium chloride 0.9% 250 mL infusion (CANCELED) 1 g, Intravenous, at 250 mL/hr, EVERY 12 HOURS, 2 doses, First dose on Tue07/19/23 at 1930, Last dose on Tue07/20/23 at 0730, Do not exceed 1 gram/hour. *Beta-lactam based antibiotics (eg. Ampicillin, ceFAZolin, Aztreonam) should be administered within 4 hours of the preceding intraoperative dose. *Vancomycin, Fluoroquinolones, Clindamycin, Gentamicin, and metroNIDAZOLE should be administered within 8 hours of the preceding intraoperative dose., Routine, Indication for (Active or Suspected): Prophylaxis 1956 (New Bag - Provider: Olivier Chung RN)2056 (Stopped - Provider: Diane Gunderson RN) vancomycin (Vancocin) 1 gram in sodium chloride 0.9% 250 mL infusion 1 g, Intravenous, at 250 mL/hr, EVERY 18 HOURS, First dose (after last modification) on Tue07/20/23 at 0800, Until Discontinued, Do not exceed 1 gram/hour., Routine, Indication for (Active or Suspected): Skin/Skin Structure 0942 (New Bag - Provider: Kinga Magana RN)1042 (Stopped - Provider: Kinga Magana RN) 0200 (New Bag - Provider: Diane Gunderson RN)0300 (Stopped - Provider: Diane Gunderson RN) Continuous Medication Order 07/19/2023 07/20/2023 07/21/2023 lactated ringers infusion 50 mL/hr, Intravenous, CONTINUOUS, Starting on Tue07/19/23 at 1846, Until Saida 07/21/23 at 1759, Recovery (Recovery-Hospital Unit) 1956 (New Bag - Provider: Olivier Chung RN) 619 (New Bag - Provider: Diane Gunderson RN)1758 (Due: Stopped) PRN Medication Order 07/19/2023 07/20/2023 07/21/2023 acetaminophen (Tylenol) tablet 650 mg 650 mg, Oral, EVERY 4 HOURS PRN, Starting on Tue07/19/23 at 1844, Until Saida 07/21/23 at 1759, Pain, for MILD pain (1-3), Maximum dose of acetaminophen is 4,000 mg from all sources in 24 hours. When ordered for pain, acetaminophen should be given even when other ordered pain medications are indicated., Routine 1999 (Given - Provider: Marjan Curiel LPN) fentaNYL (pf) (50 mcg/mL) multi-dose injection 25-50 mcg (CANCELED) 25-50 mcg, Intravenous, EVERY 3 MIN PRN, Starting on Tue07/20/23 at 1218, Until Tue07/20/23 at 1345, Pain, per unit protocol, For use in [...] 50 mcg/dose, 250 mcg/hour, Angio/IR (Intra-Procedure), Routine 1237 (Given - Provider: Kristel Gilman, KIRA)1244 (Given - Provider: Kristel Gilman, RN)1253 (Given - Provider: Kristel Gilman, KIRA) iohexoL (Omnipaque) (350 mg/mL) solution 0-200 mL (COMPLETED) 0-200 mL, Intravenous, ONCE PRN, 1 dose, Starting on Tu07/19/23 at 1622, Until Tu07/19/23 at 1622, Per Protocol, Warning Vesicant/Irritant Medication , Radiology Contrast, Routine 1622 (Given - Provider: Jovanna Almazan - Comment: TLC WNL) lidocaine (Xylocaine) 1% (10 mg/mL) injection 3 mg 3 mg (0.3 mL), Subcutaneous, ONCE PRN, 1 dose, Starting on 07/19/23 at 1844, Until Saida 07/21/23 at 1759, for discomfort with PIV insertion, Recovery (Recovery-Hospital Unit), Routine 1238 (Not Given - Provider: Kristel Gilman RN - Reason: Order parameters not met) midazolam (pf) (Versed) (1 mg/mL) multi-dose injection 0.5-1 mg (CANCELED) 0.5-1 mg, Intravenous, EVERY 3 MIN PRN, Starting on Tue07/20/23 at 1218, Until Tue07/20/23 at 1345, Sedation, For use in Interventional Radiology (IR) [...] 1 mg/dose, 5 mg/hour., Angio/IR (Intra-Procedure), Routine 1237 (Given - Provider: Kristel Gilman, RN)1241 (Given - Provider: Kristel Gilman, KIRA)1253 (Given - Provider: Kristel Gilman, KIRA) oxyCODONE (Roxicodone) tablet 5 mg 5 mg, Oral, EVERY 4 HOURS PRN, Starting on Tue07/19/23 at 1844, Until Saida 07/21/23 at 1759, Pain, for severe pain not controlled by tylenol/ibuprofen, Routine sodium chloride 0.9 % (flush) (BD PosiFlush Normal Saline 0.9) flush 5-20 mL 5-20 mL, Intravenous, EVERY 1 MIN PRN, Starting on Tue07/19/23 at 1844, Until Saida 07/21/23 at 1759, flush, Flush pertains to all indwelling lines. Flush per protocol found in the job aid using the link provided on this medication record., Recovery (Recovery-Hospital Unit), Routine 1957 (Given - Provider: Olivier Chung RN) vancomycin (Vancocin) - dosing by trough NOT APPLICABLE, PER PHARMACY, Other, Starting on Tue07/20/23 at 0644, Until Saida 07/21/23 at 1759, This order serves as a placeholder on the MAR to indicate this patient is receiving vancomycin dosed as directed by trough calculations. Warning Vesicant/Irritant Medication documented in this encounter Care Teams Mine Exploration Engineer Relationship Specialty Start Date End Date Shannan Arellano, [place] [address] PCP - General Family Medicine 02/03/23 documented as of this encounter
--- OUTSIDE RECORDS SUMMARY | 2024-06-04 17:31 | XMS_ITS | Encounter Summary ---
Author Organization [facility] Address [facility] [place] [address] Care Team Providers Care Recapper Name Role Phone Shannan Arellano MANAGER EMERGENCY Primary Care Provider [phone] Reason for Visit * Physical Therapy (Routine) - Authorized Specialty Diagnoses / Procedures Referred By Marry kelsey Referred To Contact Physical Therapy Diagnoses Penile cancer Zachary Garcia MD [facility] [place] [address] [facility] [place] [address] Referral ID Status Reason Start Date Expiration Date Visits Requested Visits Authorized [id number] Authorized Evaluate and Treat 05/17/2023 06/15/2024 100 100 Encounter Details Date Type Department Care Team (Late st Contact Info) Description 07/19/2023 9:00 AM EST Office [place] [address] Espinoza, Caroline E, OT Edema, unspecified type Social History Tobacco Use Types Packs/Day Years Used Date Smoking Tobacco: Never Smokeless Tobacco: Never Alcohol Use Standard Drinks/Week Comments Yes 1 (1 standard drink = 0.6 oz pur e alcohol) [facility] Inpatient Questions Answer Date Recorded Does [...] Notes * Treatment - Therapy - Caroline Espinoza, OT - 07/19/2023 9:00 AM ESTSummary: OT/CLT LE LYMPHEDEMA TREATMENT [...] board Cystoscopy and biopsy on 05/09/23 Surgery on06/24/22 for inguinal dissection and penile tumor resection. Patient has two drains in still he states that they are annoying. Patient continues on prophylactic ABX Plan for adjuvant chemo or radiation pending. Mild increase in fluid today in Left groin with redness. Patient states he has been feeling queasy with vomiting this am. Referred to Dr. Garcia. They will be calling today for follow up. Spouse states she feels like patient may have overdone this weekend out moving wood piles and cutting firewood. 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 PRECAUTIONS: Reviewed risks for lymphedema . Risks related to radiation fibrosis if radiation is part of treatment plan. SOCIAL SUPPORTS: Patient lives with spouse, 6 children 30 years. Does not smoke. And drinksrarely ENVIRONMENT: I at home with out DME PATIENT STATED GOAL: I want to get back to work and doing what I like to do. CURRENT ACTIVITY LEVEL:Active lifestyle and work. 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 PAIN: Occasional [...] No belly fluid noted. Incision healing well. [place] still in. No unexpected redness . Normal post op swelling. 5) LE circumferences (cm) Right 05/31/23 Left [...] Compression bike short. Wearing during the day. Recs today for flannel padding at groin area as needed. 7) mild intermittent scrotal edema. Occasional urinary dribbling. Utilizing pads a needed. [...] techniques: Rolling. Muscle pump HEP. elevation Therapy Senior Care Goals 12 weeks 1. [...] muscle pump HEP teaching self care garment fitting Adjunct fluid management techniques Charges Minutes OT EVAL LOW (34184) OT EVAL MOD (49174) OT EVAL HIGH (45827) MANUAL THERAPY(74197) 45 SELF CARE/HOME MANAGEMENT (12862) 15 THERAPEUTIC/FUNCTIONAL ACTIVITIES(73016) THEREX NEUROMUSCULAR BINA(77881) THEREX: STRENGTH ROM (97480) Caroline Espinoza OT/CLT documented in this encounter Plan of Treatment Upcoming Encounters Date Type Department Care Team (Late st Contact Info) Description 06/07/2024 1:00 PM EST TH Visit (TeleHealth) [place] [address] Zachary Garcia MD [facility] [place] [address] 06/11/2024 9:00 AM EST Office [place] [address] Caroline Espinoza OT 07/10/2024 8:00 AM EST Office [place] [address] Caroline Espinoza OT 07/24/2024 10:00 AM EST Office [place] [address] Caroline Espinoza, OT 08/07/2024 10:00 AM EST Office [place] [address] EspinozaTia santiagoyl E, OT 08/21/2024 10:00 AM EST Office [place] [address] EspinozaTia santiagoyl E, OT documented as of this encounter Visit Diagnoses Diagnosis Edema, unspecified type documented in this encounter Care Teams Recapper Relationship Specialty Start Date End Date Shannan Arellano, MANAGER [place] [address] PCP - General Family Medicine 02/03/23 documented as of this encounter
--- OUTSIDE RECORDS SUMMARY | 2024-06-04 17:31 | XMS_ITS | Encounter Summary ---
Author Organization [facility] Address [facility] Ramses ramachandranh[address] [address] Care Team Providers Care Compounder Sterile Products Name Role Phone Shannan Arellano GAYLE Primary Care Provider [phone] Reason for Referral * Consultation (Routine) - Closed Specialty Diagnoses / Procedures Referred By Contac t Referred To Contact Hematology and Oncology Diagnoses Penis cancer Shelbie Garcia MD [facility] [place] [address] [facility] Hem Onc Office [address] [place] [phone] Referral ID Status Reason Start Date Expiration Date V isits Requested Visits Authorized [id number] Closed Consult, Test & Treat 07/15/2023 07/14/2024 1 1 * Consultation (Routine) - Closed Specialty Diagnoses / Procedures Referred By Contac t Referred To Contact Radiation Oncology Diagnoses Penis cancer Shelbie Garcia MD [facility] [place] [address] [facility] Rad Onc Office [address] [place] [phone] Referral ID Status Reason Start Date Expiration Date V isits Requested Visits Authorized [id number] Closed Consult, Test & Treat 07/15/2023 07/14/2024 1 1 Encounter Details Date Type Department Care Team (Late st Contact Info) Description 07/15/2023 9:40 AM EST Office Visit Urology at [facility] [place] [address] Shelbie Garcia MD [facility] [place] [address] Penis cancer (Primary Dx) Social History Tobacco [...] Sign Reading Time Taken Comments Blood Pressure 117/91 07/15/2023 10:07 AM EST Pulse 72 07/15/2023 10:07 AM EST Temperature - - Respiratory Rate - - Oxygen Saturation 96% 07/15/2023 10:07 AM EST Inhaled Oxygen Concentration - - Weight - - Height - - Body Mass Index - - documented in this encounter Progress Notes * Shelbie Garcia MD - 07/15/2023 9:40 AM EST Images from the original note were not included. Patient Name: Ebony Contreras Date of Service: 07/15/2023 Primary Care Provider: Shannan Arellano APRN Reason [...] dissection Left lap pelvic node dissection Path: [id number] poorly differentiated penile cancer 4/10 Left inguinal and 3/13 Left pelvic nodes. 0/8 Right nodes. Margins Negative (to be confirmed at tumor board review) [facility] Department of Pathology and Laboratory Medicine Investigative Writer: Corbin Doll MD, FCAP CLIA Certificate: [id number] Name: EBONY CONTRERAS Provider: NELLYHéctorSHELBIE Ramses Client: [facility] /Age/Sex: 1950 73 years Male Location: [facility]; [facility]; A The signing pathologist has (i) examined the relevant preparation(s) for the specimen(s); and (ii) rendered or confirmed the diagnosis(es). [facility] Printed: 07/06/2023 11:48 EST Dept. of Pathology and Laboratory Medicine [facility] [place] [address] Pathology Report Collected: 06/24/2023 12:57 EST Received: 06/24/2023 13:23 EST Surgical Pathology DIAGNOSIS A - Penile foreskin, excision: No evidence of high-grade dysplasia or malignancy. 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 C - Additional [...] Ennis Verified: 07/06/2023 11:48 Pathologist Performed at: -[facility] Dept. of Pathology, [place] [address] Investigative Writer: Corbin Doll MD, FCAP, [place] Certificate: [id number] SYNOPTIC Specimen Procedure: Wide local excision of [...] Number of Lymph Nodes with Tumor: 7 [place]a Site(s) with Tumor: Inguinal - Left; Pelvic [...] Block(s): B3, B4, B6 Normal Block(s): N/A [facility] 2022 Q3 Release DISCUSSION The infiltrating carcinoma [...] discharged with drains in place on Keflex 06/26/2022 06/30/2022 He is taking Keflex and eliquis. Eating /drinking well Bowels OK Some praying, but voiding well. Some decreased drainage and leakage on the Left, but no draining better. Right Left Leaking 06/29 300 210 06/30 185 (so far) 140(so far) Sero Wearing his stockings and biker shorts 07/07/2022 Doing better He is taking Keflex and eliquis. Eating /drinking well Bowels OK More spraying (due to increased penile odema, but voiding well) ~ 2-300 cc from each drain 07/15/2022 Doing well. Keflex once a day and Eliquis Still spraying. KEN ~ 225/24 hours cc both sides Past Medical History: None Past Surgical History: None Medications: Reviewed Allergies: Reviewed Family History: There is no family history of Penile issues. Father ASCVD. 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 The patient has been for 30 years with 6 children (between them) . The patient drinks rarely Tobacco: Never. Systems review: He can walk a mile. Physical Exam: Looks well Penis look excellent. A little more penile odema Groins look better. Labs none X-rays 04/22/2023 MR Groin IMPRESSION [...] with treatment of the surgical bed. Impression: [id number] poorly diff penile cancer sp local excision and bilateral node dissection. With negative margins 3/13 pelvic nodes positive. DOing well Minimal comorbidity Plan: Continue stockings Bike Shorts Keflex to once a day Continue Eliquis 1 week for a check Hem Onc/Rad onc referral All questions were answered documented in this encounter Plan of Treatment Upcoming Encounters Date Type Department Care Team (Late st Contact Info) Description 06/07/2024 1:00 PM EST TH Visit (TeleHealth) [place] [address] Shelbie Garcia MD [facility] [place] [place] [address] 06/11/2024 9:00 AM EST Office Visit [place] [address] Caroline Espinoza, OT 07/10/2024 8:00 AM EST Office Visit [place] [address] Caroline Espinoza, OT 07/24/2024 10:00 AM EST Office Visit [place] [address] Craoline Espinoza, OT 08/07/2024 10:00 AM EST Office Visit [place] [address] Caroline Espinoza OT 08/21/2024 10:00 AM EST Office Visit [place] [address] Caroline Espinoza, OT Scheduled Referrals Name Type Priority Associated Diagnoses Order Schedule Referral to Radiation Oncology Outpatient Referral Routine Penis cancer Ordered: 07/15/2023 Referral to Hematology and Oncology Outpatient Referral Routine Penis cancer Ordered: 07/15/2023 documented as of this encounter Visit Diagnoses Diagnosis Penis cancer- Primary Malignant neoplasm of penis, part unspecified documented in this encounter Care Teams Compounder Sterile Products Relationship Specialty Start Date End Date Shannan Arellano, SIZING MACHINE OPERATOR [place] [place] [address] PCP - General Family Medicine 02/03/23 documented as of this encounter
--- OUTSIDE RECORDS SUMMARY | 2024-06-04 17:31 | XMS_ITS | Encounter Summary ---
Author Organization [facility] Address [facility] [address] Care Team Providers Care Green Coffee Blender Name Role Phone Shannan Arellano APRN Primary Care Provider [phone] Encounter Details Date Type Department Care Team (Latest Contact Info) Description 06/30/2023 Travel Social History Tobacco Use Types Packs/Day [...] PM EST TH Visit (TeleHealth) [place] [address] Zachary Garcia MD [facility] [place] [address] 06/11/2024 9:00 AM EST Office [place] [address] Caroline Espinoza OT 07/10/2024 8:00 AM EST Office [place] [address] Espinoza, Caroline E, OT 07/24/2024 10:00 AM EST Office [place] [address] Espinoza, Caroline E, OT 08/07/2024 10:00 AM EST Office [place] [address] Espinoza, Caroline E, OT 08/21/2024 10:00 AM EST Office [place] [address] Espinoza, Caroline E, OT documented as of this encounter Visit Diagnoses Not on filedocumented in this encounter Care Teams Green Coffee Blender Relationship Specialty Start Date End Date Shannan Arellano, SURVEY COMPILER [place] [address] [place] [address] PCP - General Family Medicine 02/03/23 documented as of this encounter
--- OUTSIDE RECORDS SUMMARY | 2024-06-04 17:31 | XMS_ITS | Encounter Summary ---
Author Organization [facility] Address [facility] [place] [address] Care Team Providers Care Medical Grade Shoemaker Name Role Phone Shannan Arellano APRN Primary Care Provider [phone] Encounter Details Date Type Department Care Team (Late st Contact Info) Description 06/30/2023 1:40 PM EST Office Visit [place] [address] Zachary Garcia MD [facility] [place] [address] Penile cancer (Primary Dx) Social History Tobacco [...] Sign Reading Time Taken Comments Blood Pressure 124/94 06/30/2023 2:08 PM EST Pulse 74 06/30/2023 2:08 PM EST Temperature - - Respiratory Rate - - Oxygen Saturation 95% 06/30/2023 2:08 PM EST Inhaled Oxygen Concentration - - Weight - - Height - - Body Mass Index - - documented in this encounter Progress Notes * Zachary Garcia MD - 06/30/2023 1:40 PM EST Images from the original note were not included. Patient Name: Eduardo Contreras Date of Service: 06/30/2023 Primary Care Provider: Shannan Arellano APRN Reason [...] dissection Left lap pelvic node dissection Path: Pending Negative urethroscopy. distal penile mass, ventral aspect [...] Sero Wearing his stockings and biker shorts Past Medical History: None Past Surgical History: None Medications: Reviewed Allergies: Reviewed Family History: There is no family history of Penile issues. Father ASCVD. 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 The patient has been for 30 years with 6 children (between them) . The patient drinks rarely Tobacco: Never. Systems review: He can walk a mile. Physical Exam: Looks well Penis look excellent. Some redness around his groin incisions (Photo obtained) Labs none X-rays 04/22/2023 MR Groin IMPRESSION 1. Mass of the distal corpus spongiosum, 1.2 cm. No invasion of the corpora cavernosa or glans penis, within the limitations of image quality. 2. Suspicious left inguinal lymph nodes, largest 1.4 cm. 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 Path pending DOing well Minimal comorbidity Plan: Continue stockings Bike Shorts Culture Right and Left KEN (Change antibiotics if resistant Keflex) Continue drains Continue Keflex Continue Eliquis 1 week for a check All questions were answered documented in this encounter Plan of Treatment Upcoming Encounters Date Type Department Care Team (Late st Contact Info) Description 06/07/2024 1:00 PM EST TH Visit (TeleHealth) [place] [address] Zachary Garcia MD [facility] [place] [address] 06/11/2024 9:00 AM EST Office Visit Occup[place] [address] Espinoza, Caroline E, OT 07/10/2024 8:00 AM EST Office Visit Occup[place] [address] Espinoza Caroline E, OT 07/24/2024 10:00 AM EST Office Visit Occup[place] [address] Espinoza Caroline E, OT 08/07/2024 10:00 AM EST Office Visit Occup[place] [address] Espinoza Caroline E, OT 08/21/2024 10:00 AM EST Office Visit Occup[place] [address] Espinoza Caroline E, OT documented as of this encounter Procedures Procedure Name Priority Date/Time Associated Diagnosis Comments HC BODY FLUID CULTURE Routine 06/30/2023 5:27 PM EST Penile cancer BODY FLUID CULTURE, AEROBIC Routine 06/30/2023 5:27 PM EST Penile cancer HC BODY FLUID CULTURE Routine 06/30/2023 5:24 PM EST Penile cancer BODY FLUID CULTURE, AEROBIC Routine 06/30/2023 5:24 PM EST Penile cancer documented in this encounter Results * Body Fluid Culture, Aerobic (06/30/2023 5:27 PM EST) Body Fluid Culture No growth [facility] Peritoneal Fluid 06/30/2023 5:27 PM EST 06/30/2023 5:27 PM EST Comment:Right Groin KEN fluid Narrative Resulting Agency Comment Spec In Lab Zachary Garcia MD MICROBIOLOGY - GENER AL ORDERABLES Performing Organization Address [facility] [place] [address] * Body Fluid Culture, Aerobic (06/30/2023 5:24 PM EST) Body Fluid Culture No growth [facility] Peritoneal Fluid 06/30/2023 5:24 PM EST 06/30/2023 5:24 PM EST Comment:Left Groin KEN Fluid Narrative Resulting Agency Comment Spec In Lab Zachary Garcia MD MICROBIOLOGY - GENER AL ORDERABLES Performing Organization Address [facility] [place] [address] documented in this encounter Visit Diagnoses Diagnosis Penile cancer- Primary Malignant neoplasm of penis, part unspecified documented in this encounter Care Teams Medical Grade Shoemaker Relationship Specialty Start Date End Date Shannan Arellano, FINISH [place] [address] PCP - General Family Medicine 02/03/23 documented as of this encounter
--- OUTSIDE RECORDS SUMMARY | 2024-06-04 17:31 | XMS_ITS | Encounter Summary ---
Author Organization [facility] [place] [address] Care Team Providers Care Ems Driver Name Role Phone Shannan Arellano APRN Primary Care Provider [phone] Encounter Details Date Type Department Care Team (Late st Contact Info) Description 07/08/2023 Telephone [place] [phone] Zo Arboleda, RN Social History Tobacco Use [...] Progress Notes * Zo Arboleda RN - 07/08/2023 4:37 PM EST Call returned to patient and . Reviewed plan per Dr. Garcia on 07/07/23 to take Keflex once a day. documented in this encounter Miscellaneous Notes * Telephone Encounter - Zo Arboldea RN - 07/08/2023 4:37 PM EST Copied from CRM #[id number]. Topic: Specialty Dept CRMs - Generic Call >> Jul 08, 2023 2:08 PM Liliana Jose wrote: Specialist: Zachary Garcia MD Relationship (if other than patient-full name): marie Reason for Call: Marie, of patient, calling with questions about the patients keflex and isconfused on when they are going to go down on the dosage. Please call to advise. documented in this encounter Plan of Treatment Upcoming Encounters Date Type Department Care Team (Late st Contact Info) Description 06/07/2024 1:00 PM EST TH Visit (TeleHealth) [place] [address] Zachary Garcia MD [facility] [place] [address] 06/11/2024 9:00 AM EST Office Visit [place] [address] Espinoza, Caroline E, OT 07/10/2024 8:00 AM EST Office Visit [place] [address] Espinoza, Caroline E, OT 07/24/2024 10:00 AM EST Office Visit [place] [address] Espinoza, Caroline E, OT 08/07/2024 10:00 AM EST Office Visit [place] [address] Espinoza, Caroline E, OT 08/21/2024 10:00 AM EST Office Visit [place] [address] Espinoza, Caroline E, OT documented as of this encounter Visit Diagnoses Not on filedocumented in this encounter Care Teams Ems Driver Relationship Specialty Start Date End Date Adan, Shannan B, [place] [address] PCP - General Family Medicine 02/03/23 documented as of this encounter
--- OUTSIDE RECORDS SUMMARY | 2024-06-04 17:31 | XMS_ITS | Encounter Summary ---
Author Organization Formerly [facility], [facility] Address [facility] [place] [address] Care Team Providers Care Cupola Tapper Helper Name Role Phone Shannan Arellano GAYLE Primary Care Provider [phone] Reason for Visit * Auth/Cert (Routine) Specialty Diagnoses / Procedures Referred By Marry t Referred To Contact Diagnoses PENILE CANCER Procedures PRO REMOVAL PENIS, PARTIAL PRO REMOVE GROIN LYMPH NODES SUPERF PENILE AMPUTATION, PARTIAL (WRVU 11.01) LYMPHADENECTOMY, INGUINOFEMORAL- ADRIEN (WRVU 13.62) Shelbie Cervantes MD [facility] [place] [address] [place] [address] [facility] Referral ID Status Reason Start Date Expiration Date Visits Re quested Visits Authorized [id number] 1 1 Encounter Details Date Type Department Care Team (Late st Contact Info) Description 06/24/2023 10:04 AM EST - 06/24/2023 4:49 PM EST [place] [address] Shelbie Cervantes MD [facility] [place] [address] PENILE AMPUTATION, PARTIAL (WRVU 11.01) Social History Tobacco Use Types Packs/Day Years [...] Sign Reading Time Taken Comments Blood Pressure 141/75 06/24/2023 9:06 AM EST Pulse 85 06/24/2023 9:06 AM EST Temperature 36.8 ??C (98.2 ??F) 06/24/2023 9:06 AM ES T Respiratory Rate 16 06/24/2023 9:06 AM EST Oxygen Saturation - - Inhaled Oxygen Concentration - - Weight 73.9 kg (163 lb) 06/24/2023 9:06 AM EST Height 172.7 cm (5' 8) 06/24/2023 9:06 AM EST Body Mass Index 24.78 06/24/2023 9:06 AM EST documented in this encounter Discharge Summaries * Collin Loya MD - 06/26/2023 2:33 PM EST Images from the original note were not included. Discharge Summary Patient Name: Eduardo Contreras Patient Age: 73 y.o. Language: Georgian Race: White Ethnicity: Not nor Admit date: 06/24/2023 Discharge date: 06/26/2023 Attending Physician: Shelbie Cervantes MD Discharge Diagnoses (Hospital Problems) and Secondary Diagnoses (Chronic Problems): Active Hospital Problems Diagnosis Penile cancer Resolved Hospital Problems No resolved problems to display. There are no active non-hospital problems to display for this patient. Operations/Major Procedures: Procedure(s): PENILE AMPUTATION, PARTIAL (WRVU 11.01) LYMPHADENECTOMY, INGUINOFEMORAL- ADRIEN (WRVU 13.62) LAPAROSCOPIC LYMPHADENECTOMY (WRVU 17.08) FLAP, MYOCUTANEOUS OR FASCIOCUTANEOUS, LOWER EXTREMITY (WRVU 19.04) 06/24/2023 - 06/25/2023 Surgeon(s): Shelbie Cervantes MD Robertson, MD Jovani Liang, Peter Albarado MD History of Presentation: (from admission H&P) Eduardo Contreras is a 73 y.o. 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 No recent changes to health status. PET with: Makayla metastases in the left inguinal, left distal external iliac, and left anterior obturator regions. Hospital Course: Patient was admitted to [facility] via the same day surgery program and underwent the above procedure. Operative findings as follows: Findings: Negative urethroscopy. distal penile mass, ventral aspect of glans and distal aspect of urethra resected with remaining penis reconstructed. Bilateral inguinal lymph node dissection with sartorius muscle flap bilaterally. Palpable left inguinal lymph nodes. Right inguinal lymph node frozen sections negative. Laparoscopic pelvic lymph node dissection on the left performed. He tolerated surgery well and was transferred from the PACU to the general floor in good condition a few hours after surgery. Patient's hospital course was uncomplicated. Black removed and voiding spontaneously with acceptable PVRs. BMx1 on POD2 with improved abdominal distention and burping. Tolerating PO intake. He remained afebrile, with stable vital signs throughout his hospital stay. Today, on 2 Days Post-Op, he has met all criteria for discharge home: his pain is well controlled with medications by mouth, he is tolerating a regular diet, is voiding spontaneously without difficulties, and is up and ambulating without complications. He has been deemed safe for discharge. Plan: - Keflex ppx until drains come out at f/u - Start Eliquis 5mg BID on Wednesday 06/28 - F/u with Dr. Cervantes in 1-2 weeks (requested, please call if you do not hear regarding this appointment) - Biker shorts until f/u - Avoid sitting straight up, sit in recliner or lay down until f/u Vital Signs at Discharge: Weight: Wt Readings from Last 1 Encounters: 06/24/23 73.9 kg (163 lb) Height: Ht Readings from Last 1 Encounters: 06/24/23 172.7 cm (5' 8) BMI: Body mass index is 24.78 kg/m??. Last value Range last 24 hrs Temperature Temp: 36.7 ??C (98.1 ??F) Temp: [36.7 ??C (98.1 ??F)-36.8 ??C (98.2 ??F)] Heart Rate Heart Rate: 55 Heart Rate: -- Blood Pressure BP: (!) 141/94 BP: (136-151)/(82-94) Respiratory Rate Resp: 18 Resp: [16-18] SpO2 SpO2: 92 % SpO2: [89 %-93 %] Exam at Discharge: Gen: NAD, awake/alert CV: regular rate Pulm: non-labored breathing on room air Abd: soft, non-tender, mildly-distended, incisions c/d/I without pus or drainage : bilateral upper thigh incisions c/d/I, bilateral drains with sanguinous fluid, penile incisionsc/d/I with small amount of dry blood Ext: warm, well perfused, moving spontaneously Important Studies and Lab Data: Recent Labs 06/26/23 0035 06/25/23 0537 WBC 10.7* 10.3* HGB 13.6* 12.7* PLATELET 214 200 No results for input(s): INR in the last 72 hours. Recent Labs 06/26/23 0035 06/25/23 0537 NA 138 140 K 4.2 4.4 CL 104 106 CO2 21* 22 BUN 11 14 CREATININE 0.77* 0.82 Studies: No results found for this visit on 06/24/23. Pending Studies and Lab Data: No current labs Discharge Conditions/Prognosis: Stable Discharge to: Home Updated Allergies/ADRs: No Known Allergies Immunizations Given this Hospitalization: There is no immunization history on file for this patient. Discharge Medications: Your Medications New Medications Dose Details apixaban 5 mg tablet Commonly known as: Eliquis Take 1 tablet by mouth 2 times daily for 30 days. Starting Jun 28, 2023. 5mg twice a day Start taking on: June 28, 2023 5 mg Quantity: 60 tablet Refills: 0 cephALEXin 500 mg capsule Commonly known as: Keflex Take 1 capsule by mouth 3 times daily for 14 days. 500 mg Quantity: 42 capsule Refills: 0 docusate sodium 100 mg capsule Commonly known as: Colace Take 1 capsule by mouth 2 times daily for 10 days. 100 mg Refills: 0 oxyCODONE 5 mg tablet Commonly known as: Roxicodone Take 1 tablet by mouth every 4 hours as needed for Pain (for severe pain not controlled by tylenol/ibuprofen). 5 mg Quantity: 5 tablet Refills: 0 Smoking Status at Discharge: Social History Tobacco Use Smoking Status Never Smokeless Tobacco Never Instructions Given to Patient at Discharge: Patient Instructions UROLOGY DISCHARGE INSTRUCTIONS CALL YOUR PHYSICIAN IF: You have a fever greater than 101 degrees F within one month of your surgery. You have diarrhea or vomiting for more than 24 hours, or stop having bowel movements or passing gas. You have worsening pain, not controlled with your pain medication. You develop redness, swelling, or new drainage from your wounds. You have difficulty passing your urine or starting a stream. You have any other acute change in your health status. MEDICATIONS You have been prescribed narcotic pain medications (oxycodone) to control your discomfort after surgery. For baseline pain control: Take ibuprofen 600 mg every 8 hours as needed. Take acetaminophen (Tylenol) 500-1000 mg every 6 hours as needed. For severe pain: Take oxycodone 5 mg every 4-6 hours as needed. Do NOT use alcohol, drive, or operate heavy or complex machinery while taking these medications, asthey make impair your ability to perform these activities safely. Narcotic pain medications may cause constipation. Stool softeners, such as Colace; mild laxatives, such as Milk of Magnesia, Sennakot, or Ducolax tabs; or enemas may be used if needed and are amgu-caz-yjevlnu medications available at most local pharmacies. Prunes or prune juice, taken daily, can also be helpful for constipation treatment or prevention and are available at most supermarkets. Please take antibiotic (Keflex) until drains are removed. Start Eliquis 5mg twice daily on Tuesday06/28/23. This medication is an anticoagulation medication that will make you bleed more than normal. Please be mindful of that and be careful. DRIVING RESTRICTIONS Do not operate a vehicle if you are too sore from surgery to enter or exit your vehicle comfortably, or if you are too sore to easily check your blind spot. No driving while using prescription pain medications. ACTIVITIES No heavy lifting. You may lift what is comfortable to lift with one arm. Nothing greater than 10 pounds (e.g., a full gallon jug) until re-evaluated by your physician. Discuss return to work or school with your physician. Avoid any straddling activities, such as bike riding, motorcycles, snowmobiles, ride on mowers etc. DO NOT sit straight or bending. Instead sit reclining or lay down when able (until your follow-up appointment with Dr. Cervantes). Wear your biker shorts as much as possible until your urology follow-up appointment. These shorts will help reduce swelling. DIET Eat a well-balanced diet. Fresh fruits, vegetables and fiber-containing foods are recommended. Thiswill assist in wound healing. WOUND CARE You can shower as usual in 24 hours and wash the incision area gently. Pat the incision dry with a clean, dry towel. Do not soak the wound (avoid spas, pools, and bathtubs) until it is fully healed.You may apply a small amount of bacitracin ointment on the wound for comfort. Keep the wound open to air if it is not draining. Do not remove sutures or will. Bruising and discoloration is normal at the base of the penis due to local anesthetic that was injected. You will go home with the 2 drains in your thighs. Please keep a detailed journal of daily output (left and right separately). You may use the table below. Until these drains come out, you will take a prophylactic antibiotic called Keflex (also called Cephalexin). Please take these antibiotics presc ribed. COMFORT Some incision soreness can be expected. Take your pain medication as needed and prescribed. Slowly decrease your use of pain medication as pain lessens. If your scrotum is swollen, you may wear a scrotal support. CONTACT INFORMATION To contact your provider or change your appointment, please call the Urology clinic at during business hours or during off-hours. FOLLOW-UP APPOINTMENT You will return to clinic in 1-[address] Cervantes. We will send you the date and time. Pain medication Information: Important considerations regarding narcotic pain medication: You may be given a prescription for a narcotic medication immediately following your surgery. Narcotics are prescribed for short-term use to help treat your pain. Initial prescriptions are typically for no longer than 2 weeks following your surgery. This will bedetermined by your surgeon. Narcotics have many side effects such as constipation, lightheadedness, dizziness, sedation, confusion, nausea and vomiting. Driving and the use of alcohol are strongly discouraged while you are using narcotic pain medications.Narcotics do not reduce inflammation, and inflammation is usually a major cause of pain after surgery. Non-steroidal anti-inflammatory drugs (NSAIDs) such as naproxen (Aleve) and ibuprofen (Advil, Motrin) are medications that can significantly reduce pain and inflammation. As you progress through your post-operative period, your pain should decrease and the use of narcotic medications should be less necessary. To reduce the chance of side effects, you may save your narcotic medication for nighttime use and instead use NSAIDs or acetaminophen (Tylenol) during the day. Alternative means of pain relief such as rest and relaxation, heating pads, positioning, as well asdecreasing stimulants such as coffee, tea, soft drinks, and nicotine may also help to alleviate pain. Use caution with heating pads and use only on low setting as your skin???s sensation may be altered due to surgery and you may not feel excessive heat until you are burned. If you continue to experience significant pain 5-7 days after your procedure, it may be necessary to be re-evaluated by your physician. Renewal requests should be called in to the clinic. Narcotic renewals may be requested during business hours, Tuesday to Tuesday. Due to patient safety, narcotic renewals will not be honored after hours or on weekends. It is best to make your request 2-3 days before you run out of your medication as it will take at least 24 hours for physician approval and nurse follow-up. Certain prescriptions, such as Percocet, oxycodone, Vicodin, and hydrocodone, cannot be called in to a pharmacy and must be picked up or mailed to you. If mailed to you, expect 2-5 business days prior to arrival. [facility] DRAIN CARE INSTRUCTIONS How do I care for the drains at home? Pin your drains to your clothing by using a safety pin through the plastic loop on the top of the bulb. If the drain is not attached to your clothing, it may pull out from under your skin. Also, a drain usually feels more comfortable when it???s attached. To care for the drain at home, you will have to empty the drain, change the dressing if applicable. See the following pages for instructions onhow to do this. What problems may I have with my [...] and keep the dressing clean and dry. Drain Care This device collects fluid, under suction, from your procedure area. The drain promotes healing andrecovery, and reduces the chance of infection. The drain will be in place until the drainage slows enough for your body to reabsorb fluid on its own. While you are hospitalized the nursing staff willcare for the drain and teach you to continue to do so at home. How to Empty Your Bulb Drain Note: Wash your hands thoroughly before emptying your drain(s). Have the plastic measuring cup from the hospital ready to collect and measure the drainage. Please measure the output at the same two times every 24 hours and record the amount. Unpin the drain from your clothing. Open the top of the drain. Turn the drain upside down and squeeze the contents of the bulb into themeasuring cup. Be sure to empty the bulb as completely as possible. Flush the contents in the toilet. Use the drain output log chart to record the amount of drainage twice a day or any time the bulb isfull. Record the total for 24 hours for each drain you have. If you have more than one drain, remember to record the drainage from each drain separately. To prevent infection, do not let the [...] procedure to reduce the risk of infection. Removal of the Tube The tube may be removed once the output lessens Please call your MD if the output becomes thicker or has a bad odor. Drainage Record NAME: Date of Surgery: Date: Time: If more than one drain, which one: Drainage Amount (per drain) Total Amount (per drain; in 24 hours) General Instructions None Future Appointments and Orders Future Appointments and Orders Future Appointments Provider Department Dept Phone 07/07/2023 10:00 AM Caroline Espinoza OT Occupational Therapy at [facility] Arrive at: [employer] Area [phone] Follow-Up: Future Appointments Date Time Provider Department Center 07/07/2023 10:00 AM Caroline Espinoza OT OT [facility] Primary Care Provider: Shannan Arellano APRN [phone] Unexpected Findings: None Call your doctor if: Please call your [...] managed by the Urology Team at [facility]. If you have any questions or concerns, please feel free to contact us. Provider Contact Information: Urology Clinic: [facility] (after business hours): Total time spent on discharge including oxyj-qz-isek time, care coordination, and discharge summarypreparation: 45 minutes Associated attestation - Ashley iVgil MD - 06/27/2023 11:45 AM EST I have seen and examined the patient and reviewed the history documented and I agree with the details as written. I have reviewed the available, pertinent laboratory data and imaging. The assessment and plan were formulated in discussion with me and I agree with them as documented. Ashley Vigil MD documented in this encounter Discharge Instructions * Patient Instructions* Collin Loya MD - 06/25/2023 10:31 AM EST Images from the original note were not included. UROLOGY DISCHARGE INSTRUCTIONS CALL YOUR PHYSICIAN IF: You have a fever greater than 101 degrees F within one month of your surgery. You have diarrhea or vomiting for more than 24 hours, or stop having bowel movements or passing gas. You have worsening pain, not controlled with your pain medication. You develop redness, swelling, or new drainage from your wounds. You have difficulty passing your urine or starting a stream. You have any other acute change in your health status. MEDICATIONS You have been prescribed narcotic pain medications (oxycodone) to control your discomfort after surgery. For baseline pain control: Take ibuprofen 600 mg every 8 hours as needed. Take acetaminophen (Tylenol) 500-1000 mg every 6 hours as needed. For severe pain: Take oxycodone 5 mg every 4-6 hours as needed. Do NOT use alcohol, drive, or operate heavy or complex machinery while taking these medications, asthey make impair your ability to perform these activities safely. Narcotic pain medications may cause constipation. Stool softeners, such as Colace; mild laxatives, such as Milk of Magnesia, Sennakot, or Ducolax tabs; or enemas may be used if needed and are pdjl-ekn-eqghyza medications available at most local pharmacies. Prunes or prune juice, taken daily, can also be helpful for constipation treatment or prevention and are available at most supermarkets. Please take antibiotic (Keflex) until drains are removed. Start Eliquis 5mg twice daily on Tuesday06/28/23. This medication is an anticoagulation medication that will make you bleed more than normal. Please be mindful of that and be careful. DRIVING RESTRICTIONS Do not operate a vehicle if you are too sore from surgery to enter or exit your vehicle comfortably, or if you are too sore to easily check your blind spot. No driving while using prescription pain medications. ACTIVITIES No heavy lifting. You may lift what is comfortable to lift with one arm. Nothing greater than 10 pounds (e.g., a full gallon jug) until re-evaluated by your physician. Discuss return to work or school with your physician. Avoid any straddling activities, such as bike riding, motorcycles, snowmobiles, ride on mowers etc. DO NOT sit straight or bending. Instead sit reclining or lay down when able (until your follow-up appointment with Dr. Cervantes). Wear your biker shorts as much as possible until your urology follow-up appointment. These shorts will help reduce swelling. DIET Eat a well-balanced diet. Fresh fruits, vegetables and fiber-containing foods are recommended. Thiswill assist in wound healing. WOUND CARE You can shower as usual in 24 hours and wash the incision area gently. Pat the incision dry with a clean, dry towel. Do not soak the wound (avoid spas, pools, and bathtubs) until it is fully healed.You may apply a small amount of bacitracin ointment on the wound for comfort. Keep the wound open to air if it is not draining. Do not remove sutures or will. Bruising and discoloration is normal at the base of the penis due to local anesthetic that was injected. You will go home with the 2 drains in your thighs. Please keep a detailed journal of daily output (left and right separately). You may use the table below. Until these drains come out, you will take a prophylactic antibiotic called Keflex (also called Cephalexin). Please take these antibiotics presc ribed. COMFORT Some incision soreness can be expected. Take your pain medication as needed and prescribed. Slowly decrease your use of pain medication as pain lessens. If your scrotum is swollen, you may wear a scrotal support. CONTACT INFORMATION To contact your provider or change your appointment, please call the Urology clinic at during business hours or during off-hours. FOLLOW-UP APPOINTMENT You will return to clinic in 1-[address] Cervantes. We will send you the date and time. Pain medication Information: Important considerations regarding narcotic pain medication: You may be given a prescription for a narcotic medication immediately following your surgery. Narcotics are prescribed for short-term use to help treat your pain. Initial prescriptions are typically for no longer than 2 weeks following your surgery. This will bedetermined by your surgeon. Narcotics have many side effects such as constipation, lightheadedness, dizziness, sedation, confusion, nausea and vomiting. Driving and the use of alcohol are strongly discouraged while you are using narcotic pain medications.Narcotics do not reduce inflammation, and inflammation is usually a major cause of pain after surgery. Non-steroidal anti-inflammatory drugs (NSAIDs) such as naproxen (Aleve) and ibuprofen (Advil, Motrin) are medications that can significantly reduce pain and inflammation. As you progress through your post-operative period, your pain should decrease and the use of narcotic medications should be less necessary. To reduce the chance of side effects, you may save your narcotic medication for nighttime use and instead use NSAIDs or acetaminophen (Tylenol) during the day. Alternative means of pain relief such as rest and relaxation, heating pads, positioning, as well asdecreasing stimulants such as coffee, tea, soft drinks, and nicotine may also help to alleviate pain. Use caution with heating pads and use only on low setting as your skin???s sensation may be altered due to surgery and you may not feel excessive heat until you are burned. If you continue to experience significant pain 5-7 days after your procedure, it may be necessary to be re-evaluated by your physician. Renewal requests should be called in to the clinic. Narcotic renewals may be requested during business hours, Tuesday to Tuesday. Due to patient safety, narcotic renewals will not be honored after hours or on weekends. It is best to make your request 2-3 days before you run out of your medication as it will take at least 24 hours for physician approval and nurse follow-up. Certain prescriptions, such as Percocet, oxycodone, Vicodin, and hydrocodone, cannot be called in to a pharmacy and must be picked up or mailed to you. If mailed to you, expect 2-5 business days prior to arrival. [facility] DRAIN CARE INSTRUCTIONS How do I care for the drains at home? Pin your drains to your clothing by using a safety pin through the plastic loop on the top of the bulb. If the drain is not attached to your clothing, it may pull out from under your skin. Also, a drain usually feels more comfortable when it???s attached. To care for the drain at home, you will have to empty the drain, change the dressing if applicable. See the following pages for instructions onhow to do this. What problems may I have with my [...] and keep the dressing clean and dry. Drain Care This device collects fluid, under suction, from your procedure area. The drain promotes healing andrecovery, and reduces the chance of infection. The drain will be in place until the drainage slows enough for your body to reabsorb fluid on its own. While you are hospitalized the nursing staff willcare for the drain and teach you to continue to do so at home. How to Empty Your Bulb Drain Note: Wash your hands thoroughly before emptying your drain(s). Have the plastic measuring cup from the hospital ready to collect and measure the drainage. Please measure the output at the same two times every 24 hours and record the amount. Unpin the drain from your clothing. Open the top of the drain. Turn the drain upside down and squeeze the contents of the bulb into themeasuring cup. Be sure to empty the bulb as completely as possible. Flush the contents in the toilet. Use the drain output log chart to record the amount of drainage twice a day or any time the bulb isfull. Record the total for 24 hours for each drain you have. If you have more than one drain, remember to record the drainage from each drain separately. To prevent infection, do not let the [...] procedure to reduce the risk of infection. Removal of the Tube The tube may be removed once the output lessens Please call your MD if the output becomes thicker or has a bad odor. Drainage Record NAME: Date of Surgery: Date: Time: If more than one drain, which one: Drainage Amount (per drain) Total Amount (per drain; in 24 hours) documented in this encounter Medications at Time of Discharge Medication Sig Dispensed Refills Start Date End Date oxyCODONE (Roxicodone) 5 mg tablet Take 1 tablet by mouth every 4 hours as needed for Pain (for severe pain not controlled by tylenol/ibuprofen). 5 tablet 06/26/2023 docusate sodium (Colace) 100 mg capsule Take 1 capsule by mouth 2 times daily for 10 days. 06/26/2023 07/06/2023 cephALEXin (Keflex) 500 mg capsule Take 1 capsule by mouth 3 times daily for 14 days. 42 capsule 06/26/2023 07/10/2023 apixaban (Eliquis) 5 mg tablet Take 1 tablet by mouth 2 times daily for 30 days. Starting Jun 28, 2023. 5mg twice a day 60 tablet 06/28/2023 07/28/2023 documented as of this encounter Progress Notes * Collin Loya MD - 06/26/2023 9:15 AM EST Urology Progress Note Patient: Eduardo Contreras : 1950 Room: [address] [place] [address] Admit date: 06/24/2023 Attending: Shelbie Cervantes MD ID: Eduardo Contreras is a 73 y.o. male 2 Days Post-Op s/p partial penectomy and lymph node dissection(bilateral inguinal, left pelvic) OR Findings 06/24/23: Negative urethroscopy. distal penile mass, ventral aspect of glans and distal aspect of urethra resected with remaining penis reconstructed. Bilateral inguinal lymph node dissection with sartorius muscle flap bilaterally. Palpable left inguinal lymph nodes. Right inguinal lymph node frozen sections negative. Laparoscopic pelvic lymph node dissection on the left performed. Past 24 hr Events: - NAEON - Black removed, voiding spontaneously with acceptable PVRs - Passing gas but still feels bloated and is burping - Pain well controlled - JPx2: total output 650cc/24hrs Current Medications: sodium chloride 0.9 % (flush) 5 mL Intravenous BID docusate sodium 100 mg Oral BID Objective: Last value Range last 24hrs Temperature Temp: 36.7 ??C (98.1 ??F) Temp: [36.7 ??C (98.1 ??F)-36.8 ??C (98.2 ??F)] Heart Rate Heart Rate: 55 Heart Rate: -- Blood Pressure BP: (!) 141/94 BP: (124-151)/(66-94) Respiratory Rate Resp: 18 Resp: [16-18] SpO2 SpO2: 92 % SpO2: [89 %-93 %] Intake/Output Summary (Last 24 hours) at 06/26/2023 0858 Last data filed at 06/26/2023 0852 Gross per 24 hour Intake 940 ml Output 2633 ml Net -1693 ml Physical Exam: Gen: NAD, awake/alert CV: regular rate Pulm: non-labored breathing on room air Abd: soft, non-tender, mildly-distended, incisions c/d/I without pus or drainage : bilateral upper thigh incisions c/d/I, bilateral drains with sanguinous fluid, penile incisionsc/d/I Ext: warm, well perfused, moving spontaneously Labs: Recent Labs 06/26/23 0035 06/25/23 0537 WBC 10.7* 10.3* HGB 13.6* 12.7* HCT 40.8 36.8* PLATELET 214 200 Recent Labs 06/26/23 0035 06/25/23 0537 NA 138 140 K 4.2 4.4 CL 104 106 CO2 21* 22 BUN 11 14 CREATININE 0.77* 0.82 GLUCOSE 152 162 CALCIUM 8.6 8.4* No results found for: SPGRAVITYUA, PHUADIP, PROTEINUADIP, GLUCOSEU, KETONESUA, UROBILIUADIP, BLOODUADIP, NITRATEUA, LEUKOESTERUA, WBCUA, BILIRUBINUA Imaging: None Micro: None A/P: Eduardo Contreras is a 73 y.o. male now 2 Days Post-Op s/p partial penectomy and lymph node dissection (bilateral inguinal, left pelvic) 06/24/23. Overall is doing well - pain is well controlled, is ambulating, and voiding spontaneously with normal PVRs. He has some burping and abdominal distention consistent with a mild ileus. Reassuringly he is passing flatus. Will see how breakfast and lunch goes, if he is feeling less distended/bloated and is tolerating PO he may be able to go home today vs. [place]. - maintain bike shorts - positional restrictions: avoid sitting up (should be laying flat or reclined) Dispo: floor status, Attempt Cardiopulmonary Resuscitation - Inpatient Plan discussed with Dr. Vigil, Urology attending. Collin Loya MD 06/26/2023 [id number] Associated attestation - Ashley Vigil MD - 06/27/2023 11:42 AM EST I have seen and examined the patient and reviewed the history documented and I agree with the details as written. I have reviewed the available, pertinent laboratory data and imaging. The assessment and plan were formulated in discussion with me and I agree with them as documented. Ashley Vigil MD * Nahomy Pugh PA - 06/25/2023 7:06 AM EST Urology Progress Note Patient: Eduardo Contreras : 1950 Room: [address] [place] [address] Admit date: 06/24/2023 Attending: Shelbie Cervantes MD ID: Eduardo Contreras is a 73 y.o. male 1 Day Post-Op s/p partial penectomy and lymph node dissection (bilateral inguinal, left pelvic) OR Findings 06/24/23: Negative urethroscopy. distal penile mass, ventral aspect of glans and distal aspect of urethra resected with remaining penis reconstructed. Bilateral inguinal lymph node dissection with sartorius muscle flap bilaterally. Palpable left inguinal lymph nodes. Right inguinal lymph node frozen sections negative. Laparoscopic pelvic lymph node dissection on the left performed. Past 24 hr Events: - NAEON - Complains of some gas pain - Pain well controlled - UOP overnight 2.4 L, Black draining clear yellow urine - RLQ drain - 40 cc, LLQ drain - 50 cc (both draining sanguineous fluid) Current Medications: sodium chloride 0.9 % (flush) 5 mL Intravenous BID docusate sodium 100 mg Oral BID acetaminophen 975 mg Oral Q8H Objective: Last value Range last 24hrs Temperature Temp: 36.3 ??C (97.3 ??F) Temp: [36.3 ??C (97.3 ??F)-37.8 ??C (100 ??F)] Heart Rate Heart Rate: 55 Heart Rate: [48-85] Blood Pressure BP: 104/66 BP: (68-141)/(33-85) Respiratory Rate Resp: 17 Resp: [10-17] SpO2 SpO2: 94 % SpO2: [91 %-100 %] Intake/Output Summary (Last 24 hours) at 06/25/2023 0706 Last data filed at 06/25/2023 0400 Gross per 24 hour Intake 2400 ml Output 2590 ml Net -190 ml Physical Exam: Gen: NAD, awake/alert CV: regular rate Pulm: non-labored breathing on room air Abd: soft, non-tender, mildly-distended, incisions c/d/I without pus or drainage : bilateral upper thigh incisions c/d/I, bilateral drains with sanguinous fluid, penile incisionsc/d/I with small amount of dry blood, Black draining clear yellow urine Ext: warm, well perfused, moving spontaneously Labs: Recent Labs 06/25/23 0537 WBC 10.3* HGB 12.7* HCT 36.8* PLATELET 200 Recent Labs 06/25/23 0537 NA 140 K 4.4 CL 106 CO2 22 BUN 14 CREATININE 0.82 GLUCOSE 162 CALCIUM 8.4* No results found for: SPGRAVITYUA, PHUADIP, PROTEINUADIP, GLUCOSEU, KETONESUA, UROBILIUADIP, BLOODUADIP, NITRATEUA, LEUKOESTERUA, WBCUA, BILIRUBINUA Imaging: None Micro: None A/P: Eduardo Contreras is a 73 y.o. male now 1 Day Post-Op s/p partial penectomy and lymph node dissection (bilateral inguinal, left pelvic) 06/24/23. Patient recovering appropriately. Pain is well controlled on current medication regimen. He is complaining of some gas pain this morning. He is tolerating a regular diet. He walked to the bathroom 1-2 times so far. Patient to wear bike shorts at least until his next urology follow-up in 1-2 weeks to help reduce swelling. Plan to remove Black today and monitor PVRs. This morning Black draining clear yellow urine. Labs and vitals signs stable. Patient to go home with bilateral Alex drains. Today's Plan: Remove Black, monitor PVRs Monitor pain control Continue bike shorts Neuro: po prn oxycodone CV: HDS, monitor vital signs Pulm: encourage IS/OOB, deep breathing FENGI: Regular diet mIVF (NaCl) 100 mL/hr - bowel meds: edith Colace, prn suppository : monitor urine output - Black removal 06/25 ID: s/p periop abx Heme: CRISTELA Endo: None Psych: None PPX: SCDs, deep breathing, cough, ambulation, bike shorts (until f/u) Dispo: floor status, Attempt Cardiopulmonary Resuscitation - Inpatient Plan discussed with Dr. Vigil, Urology attending. LEONOR Acosta 06/25/2023 [id number] Associated attestation - Ashley Vigil MD - 06/26/2023 7:41 AM EST I have seen and examined the patient and reviewed the history documented and I agree with the details as written. I have reviewed the available, pertinent laboratory data and imaging. The assessment and plan were formulated in discussion with me and I agree with them as documented. Ashley Vigil MD * Baron Hilliard IV, - 06/24/2023 9:32 PM EST UROLOGY POST-OP NOTE Eduardo Contreras is a 73 y.o. male s/p partial penilectomy, bilateral ILND and left pelvic, obturatorand iliac lymph node dissection. Subjective Seen and examined in PACU. Patient resting comfortably, pain well-controlled. Denies nausea/vomiting, chest pain, SOB. Objective Temp: [36.8 ??C (98.2 ??F)-37.8 ??C (100 ??F)] Heart Rate: [48-72] Resp: [10-16] BP: (68-137)/(33-85) SpO2: [91 %-100 %] Heart Rate from SpO2: [46 bpm-70 bpm] I/O this shift: In: - Out: 1500 [Urine:1400; Blood:100] Physical Exam GEN: NAD. Resting comfortably. CV: RRR, normal S1 S2 sounds. CHEST: CTAB. ABD/: Soft, nontender to light palpation, non-distended. Laparoscopic incisions open to air, c/d/I. Black in place. Compression shorts in place. EXTR: Moving spontaneously, warm. SCDs in place. Assessment/Plan Eduardo Contreras is a 73 y.o. male s/p partial penilectomy, bilateral ILND and left pelvic, obturatorand iliac lymph node dissection. Stable post-op and without acute complaints. - Pain well-controlled on current regimen. - Hemodynamically stable. - Voiding via black. - SCDs in place. - Continue post-op plan per primary team. Baron Hilliard IV, DO * Rachel Long RN - 06/24/2023 7:53 PM EST 1938 Pt arrived to PACU17 from OR. Connected to monitor, alarms set and reviewed. Airway maintainedwith a nasal airway, pt sedated. 4 abdominal lap sites open to air and CDI. Bilateral groin incisions open to air and CDI. Bilateral KEN drains to bulb suction. Compression shorts and socks on pt. Black in place and draining yellow urine adequately. BP low, anesthesia aware. Plan for Albumin and Neogtt. 1944 MD Bowen at bedside holding a jaw thrust for obstruction. George pushed by for low pressures and gtt started at 50mcg/min. Albumin brought to bedside and started. Narcan given per MD to try andarouse pt without effect. 2024 Nasal airway removed. 2114 Family at bedside. Pt denying pain and nausea. Clear liquids tolerated. VS remaining stable off of george gtt. 2129 MD Bowen following up with pt at bedside. 0 Report given to KIRA Garay for change of shift. documented in this encounter H&P Notes * Zana Scott MD - 06/24/2023 10:43 AM EST Patient Name: Eduardo Contreras Age: 73 y.o. Date of : 1950 Attending Provider: Shelbie Cervantes MD Eduardo Contreras is a 73 y.o. 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 No recent changes to health status. PET with: Makayla metastases in the left inguinal, left distal external iliac, and left anterior obturator regions. MEDICAL AND SURGICAL HISTORY History reviewed. No pertinent past medical history. Past Surgical History: Procedure Laterality Date PRO CYSTOURETHROSCOPY, BIOPSIES N/A 05/09/2023 CYSTO, URETHROSCOPY WITH BIOPSY (WRVU 2.59) performed by Shelbie Cervantes MD at [facility] OSC ALLERGIES No Known Allergies MEDICATIONS No current facility-administered medications on file prior to encounter. No current outpatient medications on file prior to encounter. PHYSICAL EXAM Temp: [36.8 ??C (98.2 ??F)] Heart Rate: [85] Resp: [16] BP: (141)/(75) SpO2: -- Heart Rate from SpO2: -- GEN: Resting comfortably in bed, conversant, NAD. CHEST: Normal work of breathing. CV: Sinus rhythm. 2+ pulses bilaterally. ABD: Soft, non-tender, non-distended. EXTR: Moving spontaneously. SKIN: Warm and dry. NEURO: Alert and follows commands. ASSESSMENT / PLAN 73 y.o. male presenting for partial penectomy and ILND left node dissection of pelvic, obturator and iliac nodes. Patient appears fit for surgery. The details, alternatives, risks, and benefits of the procedure were reviewed, and the patient wishes to proceed. Informed consent has been obtained. All questions were answered to the patient's satisfaction. Proceed with surgery. The patient's history and physical exam have been reviewed and completed. There has been no interval change from that of the pre-operative history and physical exam performed within the last 30 days. documented in this encounter Miscellaneous Notes * Plan of Care - Juliann Fraser RN - 06/26/2023 3:24 PM EST Reviewed AVS; pt, , and daughter returned verbalization of discharge instructions. Pt and educated on drain care. New Rx sent electronically to pt's home pharmacy. PIV removed. Patient left [facility] [place] in a wheelchair accompanied by [facility] [place] staff. Problem: Adult Inpatient Plan of Care Goal: Plan of Care Review 06/26/2023 1524 by Juliann Fraser RN Outcome: Outcome (s) achieved 06/26/2023 1350 by Juliann Fraser RN Outcome: Ongoing (Interventions Implemented as Appropriate) Goal: Patient-Specific Goal (Individualized) 06/26/2023 1524 by Juliann Fraser RN Outcome: Outcome (s) achieved 06/26/2023 1350 by Juliann Fraser RN Outcome: Ongoing (Interventions Implemented as Appropriate) Goal: Absence of Hospital-Acquired Illness or Injury 06/26/2023 1524 by Juliann Fraser RN Outcome: Outcome (s) achieved 06/26/2023 1350 by Juliann Fraser RN Outcome: Ongoing (Interventions Implemented as Appropriate) Goal: Optimal Comfort and Wellbeing 06/26/2023 1524 by Juliann Fraser RN Outcome: Outcome (s) achieved 06/26/2023 1350 by Juliann Fraser RN Outcome: Ongoing (Interventions Implemented as Appropriate) Goal: Readiness for Transition of Care 06/26/2023 1524 by Juliann Fraser RN Outcome: Outcome (s) achieved 06/26/2023 1350 by Juliann Fraser RN Outcome: Ongoing (Interventions Implemented as Appropriate) Problem: Fall Injury Risk Goal: Absence of Fall and Fall-Related Injury 06/26/2023 1524 by Juliann Fraser RN Outcome: Outcome (s) achieved 06/26/2023 1350 by Juliann Fraser RN Outcome: Ongoing (Interventions Implemented as Appropriate) Problem: Infection Goal: Absence of Infection Signs and Symptoms 06/26/2023 1524 by Juliann Fraser RN Outcome: Outcome (s) achieved 06/26/2023 1350 by Juliann Fraser RN Outcome: Ongoing (Interventions Implemented as Appropriate) * Plan of Care - Daphne Evans RN - 06/26/2023 6:50 AM EST OUTCOME EVALUATION NOTE: OUTCOME SUMMARY: Patient A&Ox4. Pain and nausea controlled with PRN and scheduled medications, see MAR for administrations. Voiding adequate amounts to toilet. PVR checked. KEN drains patent. Biker shorts in placeto support surgical site. Please see flowsheets for full assessment documentation, VS and I/Os. Patient ambulated in [place]ag[place] with nurse staff. Fall precautions in place. PLAN MOVING FORWARD: Pain control KEN drains management Mobilize Monitor VS, Labs, I/Os D/c planning INDIVIDUALIZED FALL PREVENTION: Patient is currently a high risk to fall. Patient educated on bed/chair alarm, demonstrates proper use of call choudhary and verbalizes understanding of fall preventions implemented. Patient-specific fall risk factors per assessment: [current deficits]: Hospital environment, recentprocedure, IV tube and drains, generalized weakness, fatigue, pain, medications Assistance [level of assistance required for transfers and ambulation]: 1 assist w/ FWW Supervision [direct monitoring required during toileting and ADLs]: 1 assistance with ADL's Surveillance [continuous indirect monitoring]: Masimo, purposeful rounding, bed alarm, visual checks. Patient-specific fall prevention interventions for sensory deficits provided, if applicable: [X] N/A CARE PLAN GOAL OUTCOME EVALUATION: Problem: Adult Inpatient Plan of Care Goal: Plan of Care Review Outcome: Ongoing (Interventions Implemented as Appropriate) Goal: Patient-Specific Goal (Individualized) Outcome: Ongoing (Interventions Implemented as Appropriate) Goal: Absence of Hospital-Acquired Illness or Injury Outcome: Ongoing (Interventions Implemented as Appropriate) Goal: Optimal Comfort and Wellbeing Outcome: Ongoing (Interventions Implemented as Appropriate) Goal: Readiness for Transition of Care Outcome: Ongoing (Interventions Implemented as Appropriate) Problem: Fall Injury Risk Goal: Absence of Fall and Fall-Related Injury Outcome: Ongoing (Interventions Implemented as Appropriate) Problem: Infection Goal: Absence of Infection Signs and Symptoms Outcome: Ongoing (Interventions Implemented as Appropriate) * Plan of Care - Juliann Fraser RN - 06/25/2023 12:57 PM EST OUTCOME EVALUATION NOTE: OUTCOME SUMMARY: Pt A&Ox4, VSS on RA. Pain controlled with scheduled and prn medications. PRN zofran given x1 for nausea. Pt ambulating in hallway x1 assist and walker. Black d/c this AM, next DTV at 2230. IVF running at 100 mL/hr. PLAN MOVING FORWARD: Pain management. KEN drain. IVF. D/c planning. INDIVIDUALIZED FALL PREVENTION INTERVENTIONS: Patient-specific fall risk factors per assessment: [current deficits]: Patient has recent surgery, has an actively infusing IV line, uses an ambulatory aid, has generalized weakness (or impairment), tubes/drains, opioids for pain. Assistance [level of assistance required for transfers and ambulation]: Up x1 assist and walker. Supervision [direct monitoring required during toileting and ADLs]: Eyes on, hands on. Surveillance [continuous indirect monitoring]: Hourly rounding, observation by staff, NKE at bedside. Assistive device, bed/chair alarm, family atbedside, urinal at bedside, environmental modifications, nonskid shoes/slippers when out of bed, bed in low position, upper position siderails raised x2, wheels locked, call light in reach, ID bands on. Patient-specific fall prevention interventions for sensory deficits provided, if applicable: [X] N/A CARE PLAN GOAL OUTCOME EVALUATION: Problem: Adult Inpatient Plan of Care Goal: Plan of Care Review Outcome: Ongoing (Interventions Implemented as Appropriate) Goal: Patient-Specific Goal (Individualized) Outcome: Ongoing (Interventions Implemented as Appropriate) Goal: Absence of Hospital-Acquired Illness or Injury Outcome: Ongoing (Interventions Implemented as Appropriate) Goal: Optimal Comfort and Wellbeing Outcome: Ongoing (Interventions Implemented as Appropriate) Goal: Readiness for Transition of Care Outcome: Ongoing (Interventions Implemented as Appropriate) Problem: Fall Injury Risk Goal: Absence of Fall and Fall-Related Injury Outcome: Ongoing (Interventions Implemented as Appropriate) Problem: Infection Goal: Absence of Infection Signs and Symptoms Outcome: Ongoing (Interventions Implemented as Appropriate) * Plan of Care - Christina Irene RN - 06/25/2023 4:18 AM EST OUTCOME EVALUATION NOTE: OUTCOME SUMMARY: Patient received from PACU at 0400. Vs checked. Order reviewed. IVF infusing. Initial assessment performed.Patient has black secured on stomach. B/L groin KEN are present.Fall precautions in place.Biker shorts in place to support surgical site, No drainage noticed. Patient asked for snacks and drinks, Both provided and patient tolerating well. No sign of pain, distress,N/V and discomfort noticed.Plan of care updated and to be continued. Patient Vitals for the past 8 hrs: BP Temp Temp src Pulse Resp SpO2 06/25/23 0407 104/66 36.3 ??C (97.3 ??F) Oral -- 17 94 % 06/25/23 0300 104/73 -- -- -- 15 100 % 06/24/23 2326 96/58 36.8 ??C (98.2 ??F) Temporal -- 14 99 % 06/24/23 2200 109/68 36.8 ??C (98.2 ??F) Temporal 55 13 94 % 06/24/232144 106/68 -- -- 63 14 93 % 06/24/23 213 112/66 -- -- 61 11 93 % 06/24/232114 115/62 -- -- 66 10 95 % 06/24/232099 106/85 -- -- 70 15 92 % 06/24/232044 133/75 -- -- 55 12 94 % 06/24/232029 133/73 -- -- 72 14 91 % 06/24/232024 -- -- -- 67 12 100 % PLAN MOVING FORWARD: Pain control Mobilize Monitor I/O D/c planning INDIVIDUALIZED FALL PREVENTION: Patient is currently a high risk to Fall. Patient educated on bed/chair alarm, demonstrates proper use of call choudhary and verbalizes understanding of fall preventions implemented. Patient-specific fall risk factors per assessment: [current deficits]: weakness, Pain, Medications,Hospital Environment, Decreased lighting, fatigue, recent procedure. Assistance [level of assistance required for transfers and ambulation]: 2 assist Supervision [direct monitoring required during toileting and ADLs]: 2 assistance with ADL's Surveillance [continuous indirect monitoring]: Bed alarm, Lewis monitor, Purposeful Rounding, Bedside Report Patient-specific fall prevention interventions for sensory deficits provided, if applicable: [X] N/A CPG GOAL OUTCOME EVALUATION: Problem: Adult Inpatient Plan of Care Goal: Plan of Care Review Outcome: Ongoing (Interventions Implemented as Appropriate) Goal: Absence of Hospital-Acquired Illness or Injury Outcome: Ongoing (Interventions Implemented as Appropriate) Goal: Readiness for Transition of Care Outcome: Ongoing (Interventions Implemented as Appropriate) Problem: Fall Injury Risk Goal: Absence of Fall and Fall-Related Injury Outcome: Ongoing (Interventions Implemented as Appropriate) Problem: Infection Goal: Absence of Infection Signs and Symptoms Outcome: Ongoing (Interventions Implemented as Appropriate) * Op Note - Zana Scott MD - 06/24/2023 12:31 PM EST [facility] Operative Note Patient Name: Eduardo Contreras : [id number] MR#: [id number] Case Date: 06/24/2023 Surgeon: Surgeon(s) and Role: * Shelbie Cervantes MD - Primary * Zana Scott MD - Resident - Assisting * Peter Hahn MD - Resident - Assisting Preoperative diagnosis: PENILE CANCER Postoperative diagnosis: PENILE CANCER Procedure(s) (LRB): PENILE AMPUTATION, PARTIAL (WRVU 11.01) (N/A) LYMPHADENECTOMY, INGUINOFEMORAL- ADRIEN (WRVU 13.62) (Bilateral) LAPAROSCOPIC LYMPHADENECTOMY (WRVU 17.08) (Bilateral) FLAP, MYOCUTANEOUS OR FASCIOCUTANEOUS, LOWER EXTREMITY (WRVU 19.04) (Bilateral) Findings: Negative urethroscopy. distal penile mass, ventral aspect of glans and distal aspect of urethra resected with remaining penis reconstructed. Bilateral inguinal lymph node dissection with sartorius muscle flap bilaterally. Palpable left inguinal lymph nodes. Right inguinal lymph node frozen sections negative. Laparoscopic pelvic lymph node dissection on the left performed. Anesthesia: General Estimated Blood Loss: 100 mL Specimens removed during surgery: Order Name Source Comment Collection Info Order Time SPECIMEN TO PATHOLOGY PENILE CANCER Foreskin excision No 06/24/2023 1:04 PM Time specimen removed from patient: 12:57 PM Number of tissue samples (in container) 1 Biospecimen to store? No SPECIMEN TO PATHOLOGY Freeze Blue area and proximal [place]ra [place] [phone] PENILE CANCER Penis Glans excision YES, Please perform frozen section No 06/24/2023 1:19 PM Time specimen removed from patient: 1:15 PM Number of tissue samples (in container) 1 Biospecimen to store? No SPECIMEN TO PATHOLOGY Freeze blue opposite [place] [phone] PENILE CANCER Additional Glans excision YES, Please perform frozen section 06/24/2023 1:19 PM Time specimen removed from patient: 1:17 PM Number of tissue samples (in container) 1 SPECIMEN TO PATHOLOGY [phone] PENILE CANCER Right Inguinal Lymph Nodes biopsy YES, Please perform frozen section No 06/24/2023 3:26 PM Number of tissue samples (in container) 1 Time specimen removed from patient: 3:25 PM Biospecimen to store? No SPECIMEN TO PATHOLOGY PENILE CANCER Left Inguinal Lymph Nodes biopsy No 06/24/2023 4:30 PM Time specimen removed from patient: 4:30 PM Number of tissue samples (in container) Multiple Biospecimen to store? No SPECIMEN TO PATHOLOGY PENILE CANCER Left Pelvic Node biopsy No 06/24/2023 6:57 PM Time specimen removed from patient: 6:56 PM Number of tissue samples (in container) 1 Biospecimen to store? No Drains: Bilateral 19 Scottish Alex drains in inguinal spaces, 16 Scottish Black catheter Surgical Closure: Primary Closure - skin incision is closed but with open spaces for wires, alfredo, drains or other devices Disposition: awakened from anesthesia, extubated and taken to the recovery room in a stable condition, having suffered no apparent untoward event. Condition: doing well without problems (Please see the Surgical Encounter Summary for any Implant and Specimen details pertinent to this patient.) HPI/Surgical Indications: Eduardo Contreras is a 73 y.o. 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 No recent changes to health status. PET with: Makayla metastases in the left inguinal, left distal external iliac, and left anterior obturator regions. Procedure Description: The patient was identified and greeted in the preoperative holding area. Consent was verified. He was taken to the operating room and placed supine on the OR table. Adequate anesthesia was induced. He was prepped and draped in the usual sterile fashion. Timeout was performed involving all members of the OR team confirming the patient's identity, laterality and planned procedure. The penile mass was palpated and a circumcision was performed. After removal of the prep use, cystoscopy was performed and an area of wide margin was marked on the ventral aspect of the penis. The catheter was inserted and the urethra was incised circumferentially at least 1 cm proximal to the areaof the mass. The urethra was then dissected off of the corpora cavernosa and the urethra and ventral aspect of the glans was removed. Deep stitches were placed in the corpus cavernosum and the remaining glans was folded on itself and sutured to the remaining urethra. The penile skin was then brought to the level of the urethra and stitched to the urethra and remaining glans in a circumferential fashion using 3-0 chromic suture. The catheter was reinserted and the balloon was filled with 10 cc. We then turned our attention to the inguinal lymph node dissections. We started on the left. Incision was made several centimeters below the inguinal ligament in a curvilinear fashion. The lymph nodepacket was from the skin with care taken to not jeopardize the blood flow of the skin. Dane carried our dissection down to the deep tissues of the leg down to the femoral sheath exposingthe saphenous vein, sartorius muscle and femoral artery and vein. The makayla packet was dissected off of the muscle as well as the saphenous vein starting inferiorly and moving superiorly and medial to lateral. The lymph node dissection was sent as a single specimen to pathology. The wound was copiously irrigated and a Alex drain was placed. The sartorius muscle was divided at the level of the ASIS and sutured to the transversalis fascia in a manner to cover the great vessels of the leg. Multiple deep dermal Vicryl sutures are placed to assist in reapproximating the skin. The skin was then stapled closed, drain was placed on suction and Tegaderm was placed on top of the incision. This procedure was then repeated on the right with the makayla packet on the right being sent for frozen section. This was negative. Given the right negative frozen section the decision was made to perform only aleft pelvic lymphadenectomy. Veress needle insufflation was performed at the planned supraumbilical port site. A 12mm optiview trocar was inserted. No bowel or vascular injury was noted in the abdomen. The abdomen was thoroughlyinsufflated to a pressure of 15 mm Hg. An additional 12 mm port as well as a 5 mm air seal port chichi 5 mm advertising sales assistant port were also inserted at the level of the umbilicus. Steep Trendelenberg position was achieved. Using the harmonic scalpel, the peritoneum was incised lateral to the medial umbilical ligament to the vas deferens. The external iliac vein was noted and the packet underneath it was taken, skeletonizing the obturator nerve and vessels with the lateral border being the pelvic sidewall. Care was taken to avoid damage to the obturator nerve or ureter. The lymph nodes were taken to the level of theiliac bifurcation. The nodes were then extracted via the midline incision. This was closed using a series of pxpeva-in-aatks sutures on UR 6 needles. The additional 12 mm port was closed using a Abdon Evans. Skin was closed using 4-0 Monocryl and Dermabond was applied. Bacitracin and Coban was applied to the penis. Compression stockings as well as bike shorts were placed and the patient was woken from anesthesia having suffered no untoward event. Dr. Cervantes as present and scrubbed for the entire procedure. Associated attestation - Shelbie Cervantes MD - 06/28/2023 6:35 PM EST Attestation: Case Date: 06/24/2023 - 06/25/2023 I performed the procedure with the assistance of the resident. I performed or directly supervised all critical aspects. Notes: Negative urethroscopy. distal penile mass, ventral aspect of glans and distal aspect of urethra resected with remaining penis reconstructed. Frozen section Margins negative Bilateral inguinal lymph node dissection with sartorius muscle flap bilaterally. Palpable left inguinal lymph nodes. Right inguinal lymph node frozen sections negative. Laparoscopic pelvic lymph node dissection on the left performed. SHELBIE CERVANTES MD 06/28/2023 documented in this encounter Plan of Treatment Upcoming Encounters Date Type Department Care Team (Late st Contact Info) Description 06/07/2024 1:00 PM EST TH Visit (TeleHealth) [place] [address] Shelbie Cervantes MD [facility] [place] [address] 06/11/2024 9:00 AM EST Office Visit [place] [address] Espinoza Caroline E, OT 07/10/2024 8:00 AM EST Office Visit [place] [address] Espinoza, Caroline E, OT 07/24/2024 10:00 AM EST Office Visit [place] [address] Espinoza, Caroline E, OT 08/07/2024 10:00 AM EST Office Visit [place] [address] Espinoza, Caroline E, OT 08/21/2024 10:00 AM EST Office Visit [place] [address] Espinoza, Caroline E, OT documented as of this encounter Procedures Procedure Name Priority Date/Time Associated Diagnosis Comments HEMOGRAM Timed 06/26/2023 12:35 AM EST DIFFERENTIAL, AUTOMATED Timed 06/26/2023 12:35 AM EST CBC (WITH DIFF) Timed 06/26/2023 12:35 AM EST BASIC METABOLIC PANEL Timed 06/26/2023 12:35 AM EST HEMOGRAM Timed 06/25/2023 5:37 AM EST DIFFERENTIAL, AUTOMATED Timed 06/25/2023 5:37 AM EST CBC (WITH DIFF) Timed 06/25/2023 5:37 AM EST BASIC METABOLIC PANEL Timed 06/25/2023 5:37 AM EST SPECIMEN TO PATHOLOGY Routine 06/24/2023 6:57 PM EST SPECIMEN TO PATHOLOGY Routine 06/24/2023 4:30 PM EST SPECIMEN TO PATHOLOGY STAT 06/24/2023 3:26 PM EST SPECIMEN TO PATHOLOGY Routine 06/24/2023 1:19 PM EST SPECIMEN TO PATHOLOGY Routine 06/24/2023 1:19 PM EST SPECIMEN TO PATHOLOGY Routine 06/24/2023 1:04 PM EST SURGICAL PATHOLOGY REPORT Routine 06/24/2023 12:57 PM EST Muscle-Skin Flap, Leg ([id number]) Yes 06/24/2023 11:31 AM EST PENILE CANCER Unlisted Laparoscopy Procedure Lymphatic System ([id number]) Yes 06/24/2023 11:31 AM EST PENILE CANCER Remove Groin Lymph Nodes Superf ([id number]) Yes 06/24/2023 11:31 AM EST PENILE CANCER Removal Penis, Partial ([id number]) Yes 06/24/2023 11:31 AM EST PENILE CANCER documented in this encounter Results * (ABNORMAL) Differential, Automated (06/26/2023 12:35 AM EST) Neutrophil % 83.0 % [facility] Neutrophil Absolute 8.87(H) 1.70 - 6.10 x10(3)/mc L [facility] Lymph % 10.6 % [facility] Lymphocytes Abs 1.1 0.9 - 3.2 x10(3)/mc L [facility] Monocyte % 5.8 % [facility] Monocyte Abs 0.6 0.3 - 0.9 x10(3)/ L [facility] Eos % 0.1 % [facility] Eosinophils Abs 0.0 0.0 - 0.4 x10(3)/ L [facility] Basophil % 0.2 % [facility] Baso Absolute 0.0 0.0 - 0.1 x10(3)/mc L [facility] Immature Gran % 0.30 % [facility] Comment: Immature granulocytes(IG's)percentage and absolute count will include metamyelocytes, myelocytes, and promyelocytes. Blood smears from CBCs yielding IG's will be scanned manually for concordance. If this scan disagrees with the automated IG or if promyelocytes are noted, a manual differential will be performed. Immature Gran Absolute 0.03 0.00 - 0.04 x10(3)/ L [facility] Blood 06/26/2023 12:3 5 AM EST 06/26/2023 12:48 AM EST Narrative Resulting Agency Comment Spec In Lab Zana Scott MD HEMATOLOGY OR DERABLES Performing Organization Address City/State/[facility] Co de Phone Number [facility] [place] [address] * (ABNORMAL) Hemogram (06/26/2023 12:35 AM EST) White Blood Cell 10.7(H) 4.0 - 9.5 x10(3)/mc L [facility] Red Blood Cell 4.49(L) 4.58 - 5.54 x10(6)/mc L [facility] Hemoglobin 13.6(L) 13.7 - 16.5 g/dL [facility] Hematocrit 40.8 40.5 - 48.5 % [facility] Mean Cell Volume 90.9 82.9 - 93.1 fL [facility] Mean Cell Hemoglobin 30.3 27.5 - 32.1 pg [facility] Mean Cell Hemoglobin Concentration 33.3 32.0 - 35.7 g/dL [facility] Platelet 214 145 - 357 x10(3)/mc L [facility] RDW Standard Deviation 41.8 36.0 - 45.0 fL [facility] RDW coefficient of variation 12.5 11.4 - 13.8 % [facility] Mean Platelet Volume 10.0 7.6 - 12.9 fL [facility] NRBC% auto 0.0 % [facility] NRBC Absolute 0.000 0.000 - 0.000 x10(3)/mc L [facility] Blood 06/26/2023 12:3 5 AM EST 06/26/2023 12:48 AM EST Narrative Resulting Agency Comment Spec In Lab Zana Scott MD HEMATOLOGY OR DERABLES Performing Organization Address City/State/[facility] Co de Phone Number [facility] [place] [address] * (ABNORMAL) Basic Metabolic Panel (non-fasting) (06/26/2023 12:35 AM EST) Glucose 152 65 - 199 mg/dL [facility] Comment:Diabetes: >=200 mg/d L plus symptoms Blood Urea Nitrogen 11 10 - 20 mg/dL [facility] Creatinine 0.77(L) 0.80 - 1.50 mg/dL [facility] Sodium 138 135 - 145 mmol/L [facility] Potassium 4.2 3.5 - 5.0 mmol/L [facility] Comment: Please note: ??Patients with WBC >100,000 may have falsely elevated Potassium levels. ??For accurate Potassium quantification in these patients send serum separator tube (gold top) for subsequent determinations. ??Contact the Clinical Chemistry Laboratory if there are any questions. Chloride 104 98 - 107 mmol/L [facility] Carbon Dioxide 21(L) 22 - 31 mmol/L [facility] Anion Gap 13 5 - 15 mmol/L [facility] Calcium 8.6 8.5 - 10.5 mg/dL [facility] Est Glomerular Filtration Rate 95 >=60 mL/min/1. 73 m?? [facility] Comment: This patient's estimated GFR [...] and symptoms in addition to eGFR. Blood 06/26/2023 12:3 5 AM EST 06/26/2023 12:47 AM EST Narrative Resulting Agency Comment Spec In Lab Shelbie Cervantes MD CHEMISTRY ORDERABLES [facility] [place] [address] * (ABNORMAL) Differential, Automated (06/25/2023 5:37 AM EST) Neutrophil % 84.3 % [facility] Neutrophil Absolute 8.72(H) 1.70 - 6.10 x10(3)/mc L [facility] Lymph % 9.5 % [facility] Lymphocytes Abs 1.0 0.9 - 3.2 x10(3)/mc L [facility] Monocyte % 5.6 % [facility] Monocyte Abs 0.6 0.3 - 0.9 x10(3)/mc L [facility] Eos % 0.0 % [facility] Eosinophils Abs 0.0 0.0 - 0.4 x10(3)/mc L [facility] Basophil % 0.1 % [facility] Baso Absolute 0.0 0.0 - 0.1 x10(3)/mc L [facility] Immature Gran % 0.50 % [facility] Comment: Immature granulocytes(IG's)percentage and absolute count will include metamyelocytes, myelocytes, and promyelocytes. Blood smears from CBCs yielding IG's will be scanned manually for concordance. If this scan disagrees with the automated IG or if promyelocytes are noted, a manual differential will be performed. Immature Gran Absolute 0.05(H) 0.00 - 0.04 x10(3)/mc L [facility] Blood 06/25/2023 5:37 AM EST 06/25/2023 5:48 AM EST Narrative Resulting Agency Comment Spec In Lab Zana Scott MD HEMATOLOGY OR DERABLES Performing Organization Address City/[facility]/ZIP Co de Phone Number [facility] [place] [address] * (ABNORMAL) Hemogram (06/25/2023 5:37 AM EST) White Blood Cell 10.3(H) 4.0 - 9.5 x10(3)/[facility] Red Blood Cell 4.08(L) 4.58 - 5.54 x10(6)/[facility] Hemoglobin 12.7(L) 13.7 - 16.5 g/dL [facility] Hematocrit 36.8(L) 40.5 - 48.5 % [facility] Mean Cell Volume 90.2 82.9 - 93.1 fL [facility] Mean Cell Hemoglobin 31.1 27.5 - 32.1 pg [facility] Mean Cell Hemoglobin Concentration 34.5 32.0 - 35.7 g/dL [facility] Platelet 200 145 - 357 x10(3)/ L [facility] RDW Standard Deviation 41.0 36.0 - 45.0 fL [facility] RDW coefficient of variation 12.3 11.4 - 13.8 % [facility] Mean Platelet Volume 10.0 7.6 - 12.9 fL [facility] NRBC% auto 0.0 % [facility] NRBC Absolute 0.000 0.000 - 0.000 x10(3)/ L [facility] Blood 06/25/2023 5:37 AM EST 06/25/2023 5:48 AM EST Narrative Resulting Agency Comment Spec In Lab Zana Scott MD HEMATOLOGY OR DERABLES Performing Organization Address City/[facility]/ZIP Co de Phone Number [facility] [place] [address] * (ABNORMAL) Basic Metabolic Panel (non-fasting) (06/25/2023 5:37 AM EST) Glucose 162 65 - 199 mg/dL [facility] Comment:Diabetes: >=200 mg/d L plus symptoms Blood Urea Nitrogen 14 10 - 20 mg/dL [facility] Creatinine 0.82 0.80 - 1.50 mg/dL [facility] Sodium 140 135 - 145 mmol/L [facility] Potassium 4.4 3.5 - 5.0 mmol/L [facility] Comment: Please note: ??Patients with WBC >100,000 may have falsely elevated Potassium levels. ??For accurate Potassium quantification in these patients send serum separator tube (gold top) for subsequent determinations. ??Contact the Clinical Chemistry Laboratory if there are any questions. Chloride 106 98 - 107 mmol/L [facility] Carbon Dioxide 22 22 - 31 mmol/L [facility] Anion Gap 12 5 - 15 mmol/L [facility] Calcium 8.4(L) 8.5 - 10.5 mg/dL [facility] Est Glomerular Filtration Rate 93 >=60 mL/min/1. 73 m?? [facility] Comment: This patient's estimated GFR [...] and symptoms in addition to eGFR. Blood 06/25/2023 5:37 AM EST 06/25/2023 5:48 AM EST Narrative Resulting Agency Comment Spec In Lab Shelbie Cervantes MD CHEMISTRY ORDERABLES [facility] [place] [address] * Specimen to Pathology (06/24/2023 6:57 PM EST) AP Specimen 06/24/2023 6:57 PM EST 06/24/2023 6:57 PM EST Narrative [facility] - 06/24/2023 6:57 PM EST Specimen requisition ordered. ??Separate Pathology report to follow Shelbie Cervantes MD PATHOLOGY/CYTOLOGY O RDJOSE ANGEL Performing Organization Address [facility] Co de Phone Number [facility] [place] [address] * Specimen to Pathology (06/24/2023 4:30 PM EST) AP Specimen 06/24/2023 4:30 PM EST 06/24/2023 4:30 PM EST Narrative [facility] - 06/24/2023 4:30 PM EST Specimen requisition ordered. ??Separate Pathology report to follow Shelbie Cervantes MD PATHOLOGY/CYTOLOGY O HERON Performing Organization Address [facility] Co de Phone Number [facility] [place] [address] * Specimen to Pathology (06/24/2023 3:26 PM EST) AP Specimen 06/24/2023 3:26 PM EST 06/24/2023 3:26 PM EST Narrative [facility] - 06/24/2023 3:26 PM EST Specimen requisition ordered. ??Separate Pathology report to follow Shelbie Cervantes MD PATHOLOGY/CYTOLOGY O RDJOSE ANGEL Performing Organization Address [facility] Co de Phone Number [facility] [place] [address] * Specimen to Pathology (06/24/2023 1:19 PM EST) AP Specimen 06/24/2023 1:19 PM EST 06/24/2023 1:19 PM EST Narrative [facility] - 06/24/2023 1:19 PM EST Specimen requisition ordered. ??Separate Pathology report to follow Shelbie Cervantes MD PATHOLOGY/CYTOLOGY O HERON Performing Organization Address [facility] Co de Phone Number [facility] [place] [address] * Specimen to Pathology (06/24/2023 1:19 PM EST) AP Specimen 06/24/2023 1:19 PM EST 06/24/2023 1:19 PM EST Narrative [facility] - 06/24/2023 1:19 PM EST Specimen requisition ordered. ??Separate Pathology report to follow Shelbie Cervantes MD PATHOLOGY/CYTOLOGY O HERON Performing Organization Address [facility] Co de Phone Number [facility] [place] [address] * Specimen to Pathology (06/24/2023 1:04 PM EST) AP Specimen 06/24/2023 1:04 PM EST 06/24/2023 1:04 PM EST Narrative [facility] - 06/24/2023 1:04 PM EST Specimen requisition ordered. ??Separate Pathology report to follow Shelbie Cervantes MD PATHOLOGY/CYTOLOGY O HERON Performing Organization Address [facility] [place] [address] * Surgical Pathology Report (06/24/2023 12:57 PM EST) Final Diagnosis [id number] ? Location: [facility]; [facility]; A The signing pathologist has (i) examined the relevant preparation(s) for the specimen(s) and (ii) rendered or confirmed the diagnosis(es). . ?Surgical Pathology DIAGNOSIS A - Penile foreskin, excision: ?No evidence of high-grade dysplasia or malignancy. 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 C - Additional glans penis, excision: ?No evidence of malignancy. D - Right inguinal lymph nodes, excision: ?Eight lymph nodes, no evidence of ?malignancy (0/8). E - Left inguinal lymph nodes, excision: ?Metastatic carcinoma in four of ten ?lymph nodes (4/10). F - Left pelvic lymph nodes, excision: ?Metastatic carcinoma in three of thirteen ?lymph nodes (3/13). CR-0 Electronically signed by: ?Terrell BARRON, Ignacio Ennis Verified: ??07/06/2023 11:48 ??Pathologist Performed at: ??-[facility] Dept. of Pathology, [place] [address] Field Clinical Engineer: Corbin Doll MD, AP, ??CLIA Certificate: [id number] SYNOPTIC Specimen ? Procedure: ??Wide local excision of ventral glans penis and distal aspect of ?urethra ? Foreskin: ??Cannot be determined - Foreskin separately removed (Specimen A) Tumor ? Tumor Focality: ??Unifocal ? Tumor Site: ??Glans ? Tumor Size: ??0.8 Centimeters (cm) ? 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 Histologic Grade: ??G3, poorly differentiated ? Tumor Extent: ??Glans ?Glans: ??Invades corpus spongiosum ? Lymphatic and / or Vascular Invasion: ??Not identified ? Perineural Invasion: ??Not identified Margins ? Margin Status for Invasive Carcinoma: ??Cannot be determined - Tumor ?with cautery artifact present focally at margin of blue-inked area of ?concern (section B2); Additional separately submitted glans penis (specimen ?C) free of tumor ? Margin Status for Noninvasive Carcinoma / Carcinoma in Situ: ??All margins ?negative for non-invasive carcinoma / carcinoma in situ Regional Lymph Nodes . SYNOPTIC ? Regional Lymph Node Status: ??Tumor present in regional lymph node(s) ?Number of Lymph Nodes with Tumor: ??7 ?Makayla Site(s) with Tumor: ??Inguinal - Left; ??Pelvic - Left ? Number of Inguinal Lymph Nodes with Tumor: ??4 ? Laterality of Inguinal Lymph Node(s) with Tumor: ??Unilateral ?Extranodal Extension: ??Not identified ? Number of Lymph Nodes Examined: ??31 pTNM Classification (AJCC 8th Edition) ? pT Category: ??pT2 ? pN Category: ??pN3 Special Studies ? p16 Immunohistochemistry: ??Positive Best Tumor Blocks for Future Studies ? Tumor Block(s): ??B3, B4, B6 ? Normal Block(s): ??N/A ? [facility] 2022 Q3 Release DISCUSSION The infiltrating carcinoma [...] cell carcinomas (ie, basaloid, warty, clear cell, lymphoepithelioma-like , or medullary subtypes). Scanned slides: [id number] [id number] [id number] B 2-4 [id number] B3-1 [id number] B4-1 [id number] B5-1 [id number] B6-1 [id number] E5-1 [id number] E12-1 [id number] E13-1 [id number] E14-1 [id number] F4-1 [id number] F7-1 [id number] F9-1 ADDITIONAL STUDIES Formalin-fixed, paraffin-embedded tissue sections are studied using the B-SA system technique with appropriate positive and negative controls. Block ? Antibody ?Result (Degree of immunoreactivity) B-2 ?CKAE1/3 ?Positive (focus of interest, margin) B-2 ?P16 ?Positive (focus of interest, margin) B-3 ?GATA3 ?Positive B-3 ?P40 ?Positive (diffuse nuclear ?immunoreactivity) B-3 ?P63 ?Positive (diffuse nuclear ?immunoreactivity) B-3 ?P53 ?Foci of nuclear immunoreactivity B-3 ?P16 ?Diffusely positive IHC studies provide the pathologist with adjunctive diagnostic information. Antibody specificity has been verified by testing antibodies on a series of in-house tissues with known immunohistochemical performance characteristics. The clinical . ADDITIONAL STUDIES interpretation of any antibody positive staining or its absence is evaluated within the context of clinical presentation, morphology, histopathological criteria and other diagnostic tests. SPECIMEN(S) SUBMITTED A - Foreskin, excision B - Penis, glans, excision ?? for frozen section C - Additional glans, excision ?? for frozen section D - Right inguinal lymph nodes, excision ?for frozen section E - Left inguinal lymph nodes, excision F - Left pelvic lymph nodes, excision CLINICAL INFORMATION Penile cancer SPECIMEN PROCESSING A - Labeled/Fixative: Foreskin, fresh. Quantity/Size: Single, 4.5 x 2.5 x 0.4 cm. Tissue Description: Irregular, not oriented baugh-steele wrinkled skin excision. No discrete lesions are grossly identified. Sections/Processing: Bisque Kiln Placer sections in 2 cassettes labeled A1-A2. B - Labeled/Fixative: Glans penis, fresh for frozen section. Quantity/Size/Weight: Single, 2.5 x 2.0 x 0.8 cm (overall size and weight). SPECIMEN DESCRIPTION ??Resection Specimen: Intact, partial excision of penis. ??Foreskin: Submitted separately as specimen A. ??Length: 2.5 cm. Diameter at glans: 1.5 cm Diameter at shaft: 0.9 cm LESION ??Location: Glans; resection margin marked with blue ink. ??Focality: Unifocal. ??Size: 0.8 x 0.5 x 0.5 cm. Area of submucosal ??thickening/induratio n. ??Color: Baugh-white. ??Consistency: Firm. The following tissue is submitted for frozen section: Proximal urethral margin, en face, submitted as BFS1. Blue-inked area of concern, perpendicular section, submitted as BFS2. Bisque Kiln Placer sections in 6 cassettes as follows: ?B1: BFS1 frozen section residual tissue ?B2: BFS2 frozen section residual tissue ?B3-B6: Longitudinal sections through urethra ?including the entirety of the blue inked area ?of concern C - Labeled/Fixative: Additional glans, blue opposite margin, fresh for frozen section. Quantity/Size: Single, 0.6 x 0.4 x 0.2 cm Tissue Description: Cauterized steele-pink tissue. Sections/Processing: The specimen is totally submitted for frozen section in 1 cassette labeled C1. D - Labeled/Fixative: Right inguinal lymph nodes, fresh for frozen section. Quantity/Size: Single, 8.5 x 6.5 x 2.5 cm. Tissue Description: Adipose tissue with multiple pink to baugh-steele ovoid, rubbery, partially fatty lymph nodes ranging from 0.5 cm, up to 3.5 cm. . SPECIMEN PROCESSING The following tissue is submitted for frozen section: Identified lymph nodes, which are dissected from the surrounding fat, and submitted as DFS1-DFS6. Bisque Kiln Placer sections in 15 cassettes as follows: ?D1: Four intact candidate lymph nodes, frozen section residual tissues, entirely ? submitted as DFS1 ?D2: Single candidate lymph node, bisected and entirely submitted as DFS2 ?D3: Single candidate lymph node, bisected and entirely submitted as DFS3 ?D4: Single candidate lymph node, serially sectioned, residual tissues ? career representative sections submitted as DFS4 ?D5: Single candidate lymph node serially sectioned and career representative sections ? submitted as DFS5 ?D6: Single candidate lymph node, serially sectioned and career representative sections ? submitted as DFS6 ?D7-D9: Remainder of the lymph node, career representative sections initially submitted as ? DFS4 ?D10-D11: Remainder of the lymph node, career representative sections initially submitted ? as DFS5 ?D12-D15: ??Remainder of the lymph node, career representative sections initially submitted ? as DFS6 E - Labeled/Fixative: Left inguinal lymph nodes, fresh. Quantity/Size: Single, 9.0 x 6.5 x 4.0 cm. Tissue Description: Aggregate yellow-brown, lobulated adipose tissue with multiple, irregular to rounded firm baugh-white lymph nodes, ranging from 0.5 cm, up to 6.5 cm. Bisque Kiln Placer sections in 14 cassettes as follows: ?E1: Two intact lymph node candidates, submitted in toto ?E2: One candidate lymph node, serially sectioned and entirely submitted ?E3: One candidate lymph node, serially sectioned and entirely submitted ?E4-E5: Two candidate lymph nodes each cassette, differentially inked and bisected ?E6-E11: One candidate lymph node, serially sectioned and entirely submitted ?E12-E14: Bisque Kiln Placer sections from each of three positive lymph nodes F - Labeled/Fixative: Left pelvic nodes, fresh. Quantity/Size: Fragments, 8.0 x 6.0 x 2.5 cm in aggregate. Tissue Description: Adipose tissue with multiple, irregular to ovoid yellow-brown lymph nodes ranging from 0.4 cm, up to 3.0 cm. Bisque Kiln Placer sections in 9 cassettes as follows: ?F1: Four intact candidate lymph nodes, submitted in toto ?F2: Three intact candidate lymph nodes, submitted in toto ?F3-F4: Two candidate lymph nodes each cassette, differentially inked and bisected ?F5: One candidate lymph node, serially sectioned ?F6-F7: One candidate lymph node, serially sectioned ?F8-F9: One lymph node candidate, career representative sections ??shb ?Frozen Section FROZEN SECTION DIAGNOSIS DFS1. Right inguinal lymph nodes: - Seven lymph nodes, negative for carcinoma (0/7). Note: fatty tissue with extensive folding artifacts. . FROZEN SECTION DIAGNOSIS 06/24/23 16:47/LL Electronically signed by: ?Souleymane Solano MD Verified: ??06/24/2023 16:54 ??Pathologist Performed at: ??-[facility] Dept. of Pathology, [place] [address] Field Clinical Engineer: Corbin Doll MD, FCAP, ??CLIA Certificate: [id number] This intraoperative consultation should be interpreted as a preliminary diagnosis pending review of the entire specimen and special studies, if any. A final Surgical Pathology report will follow this preliminary Frozen Section report(s). ?Frozen Section FROZEN SECTION DIAGNOSIS BFS1. Proximal urethral margin, excision: - Negative for high-grade dysplasia or carcinoma. BFS2. Blue inked area, excision: - Negative for carcinoma, tumor measures approximately 4 mm from margin. CFS1. Additional glans, excision: - Cauterized tissue, no definitive evidence of carcinoma. 06/24/23 14:10/LL Electronically signed by: ?Souleymane Solano MD Verified: ??06/24/2023 14:16 ??Pathologist Performed at: ??-[facility] Dept. of Pathology, [place] [address] Field Clinical Engineer: Corbin Doll MD, FCAP, ??CLIA Certificate: [id number] This intraoperative consultation should be interpreted as a preliminary diagnosis pending review of the entire specimen and special studies, if any. A final Surgical Pathology report will follow this preliminary Frozen Section report(s). 07/06/2023 11:48 AM EST [facility] LYMPH NODE SPECIMEN / Unknown 06/24/2023 12:57 PM EST 06/24/2023 12:57 PM EST PENILE STRUCTURE / Unknown 06/24/2023 12:57 PM EST 06/24/2023 12:57 PM EST PENILE STRUCTURE / Unknown 06/24/2023 12:57 PM EST 06/24/2023 12:57 PM EST LYMPH NODE SPECIMEN / Unknown 06/24/2023 12:57 PM EST 06/24/2023 12:57 PM EST LYMPH NODE SPECIMEN / Unknown 06/24/2023 12:57 PM EST 06/24/2023 12:57 PM EST LYMPH NODE SPECIMEN / Unknown 06/24/2023 12:57 PM EST 06/24/2023 12:57 PM EST Shelbie Cervantes MD PATHOLOGY/CYTOLOGY O RDERABLES [facility] [place] [address] documented in this encounter Visit Diagnoses Not on filedocumented in this encounter Admitting Diagnoses Diagnosis Penile cancer Malignant neoplasm of penis, part unspecified documented in this encounter Administered Medications Inactive Administered Medications - up to 3 most recent administrations Medication Order MAR Action Action Date Dose Rate Site acetaminophen (Tylenol) tablet 975 mg 975 mg, Oral, EVERY 8 HOURS, 3 doses, First dose on Tue06/24/23 at 2045, Last dose on 06/25/23 at 1245, Maximum dose of acetaminophen is 4,000 mg from all sources in 24 hours. When ordered for pain, acetaminophen should be given even when other ordered pain medications are indicated., Routine Given 06/25/2023 12:12 PM EST 975 mg Given 06/25/2023 5:00 AM EST 975 mg Given 06/24/2023 9:14 PM EST 975 mg albumin (human) 5% 250 mL intravenous solution 12.5 g, Intravenous, EVERY 30 MIN, 2 doses, First dose on Tue06/24/23 at 2014, Last dose on Tue06/24/23 at 2044, 1 bottle (unit) = 12.5 grams / 250 mL (Total Dose = 25 grams = 2 bottles), PACU Recovery, Routine New Bag 06/24/2023 8:58 PM EST 12.5 g New Bag 06/24/2023 8:11 PM EST 12.5 g calcium carbonate (TUMS) chewable tablet 500 mg 500 mg, Oral, 2 TIMES DAILY PRN, Starting on 06/25/23 at 1207, Until 06/26/23 at 1809, Heartburn, Routine Given 06/25/2023 7:48 PM EST 500 mg Given 06/25/2023 12:12 PM EST 500 mg docusate sodium (Colace) capsule 100 mg 100 mg, Oral, 2 TIMES DAILY, First dose on Tue06/24/23 at 2100, Until Discontinued, Routine Given 06/26/2023 8:09 AM EST 100 mg Given 06/25/2023 9:30 PM EST 100 mg Given 06/25/2023 8:41 AM EST 100 mg lidocaine (Xylocaine) 1% (10 mg/mL) injection 3 mg 3 mg (0.3 mL), Subcutaneous, ONCE PRN, 1 dose, Starting on Tue06/24/23 at 0852, Until Tue06/24/23 at 1943, for discomfort with PIV insertion, Day of Surgery (Day of Procedure), Routine Given 06/24/2023 7:43 PM EST 21 mLs naloxone (Narcan) (0.4 mg/mL) injection 0.04 mg 0.04 mg, Intravenous, EVERY 5 MIN PRN, 3 doses, Starting on Tue06/24/23 at 1903, Until Tue06/24/23 at 2206, Opioid Reversal, for respiratory rate less than 6 or unresponsive., May repeat every 5 minutes to increase respiratory rate. DO NOT exceed 0.12 mg total dose. Notify anesthesia immediately if administered., PACU Recovery, Routine Given 06/24/2023 7:59 PM EST 0.04 mg ondansetron (pf) (Zofran) (2 mg/mL) injection 4 mg 4 mg, Intravenous, EVERY 8 HOURS PRN, Starting on Tue06/24/23 at 2017, Until Tue06/26/23 at 1809, Nausea, May repeat times one in 30 minutes if ineffective. If multiple antiemetics are ordered, use ondansetron first., Recovery (Recovery-Hospital Unit) Given 06/26/2023 12:30 AM EST 4 mg Given 06/25/2023 12:03 PM EST 4 mg ondansetron (Zofran) tablet 4 mg 4 mg, Oral, EVERY 8 HOURS PRN, Starting on Tue06/24/23 at 2017, Until Tue06/26/23 at 1809, Nausea, Vomiting, If multiple antiemetics are ordered, use ondansetron first. PO Preferred. If patient unable to take PO, may give IV if ordered. May repeat times one in 45 minutes if ineffective., Recovery (Recovery-Hospital Unit), Routine oxyCODONE (Roxicodone) tablet 10 mg 10 mg, Oral, EVERY 4 HOURS PRN, Starting on Tue06/24/23 at 2018, Until Tue06/26/23 at 1809, Pain, severe pain (7-10), Routine oxyCODONE (Roxicodone) tablet 5 mg 5 mg, Oral, EVERY 4 HOURS PRN, Starting on Tue06/24/23 at 2019, Until Tue06/26/23 at 1809, Pain, moderate pain (4-6), Routine Given 06/26/2023 12:30 PM EST 5 mg Given 06/25/2023 7:49 PM EST 5 mg Given 06/25/2023 2:51 PM EST 5 mg PHENYLephrine (George-Synephrine) (80 mcg/mL) in sodium chloride 0.9% 250 mL infusion 0-80 mcg/min (0-60 mL/hr), Intravenous, CONTINUOUS, Starting on Tue06/24/23 at 2014, Until Tue06/24/23 at 2205, Titrate to maintain mean arterial pressure (MAP) greater than 65 mmHg. Start at 40 mcg/min. Increase/decrease by 20 mcg/min every 10 minutes. Do not exceed 180 mcg/min. Please call anesthesia provider if unable to maintain MAP goal as ordered. Per the Vasopressor Administration Policy, [place] 0337: A central line must be placed for the administration of vasopressor infusions lasting longer than 8 hours. Warning Vesicant/Irritant Medication , PACU Recovery Rate/Dose Change 06/24/2023 8:31 PM EST 20 mcg/min 15 mL/hr Rate/Dose Change 06/24/2023 8:20 PM EST 30 mcg/min 22.5 mL /hr Rate/Dose Change 06/24/2023 8:10 PM EST 40 mcg/min 30 mL/h r PHENYLephrine (George-Synephrine) 20 mg/250 mL (80 mcg/mL) infusion 1 dose, Starting on Tue06/24/23 at 1949, Until Tue06/24/23 at 2000, RONEL MEDINA: cabinet override Per the Vasopressor Administration Policy, [place] 2657: A central line must be placed for the administration of vasopressor infusions lasting longer than 8 hours. Warning Vesicant/Irritant Medication simethicone (Gas-X Chew) 80 mg chewable tablet 80 mg 80 mg, Oral, EVERY 6 HOURS PRN, Starting on Tue06/26/23 at 0054, Until Tue06/26/23 at 1809, Cramping, Routine Given 06/26/2023 1:13 AM EST 80 mg sodium chloride 0.9 % (flush) (BD PosiFlush Normal Saline 0.9) flush 5 mL 5 mL, Intravenous, 2 TIMES DAILY, First dose on Tue06/24/23 at 2100, Until Discontinued, Recovery (Recovery-Hospital Unit), Routine Given 06/25/2023 9:30 PM EST 5 mLs Given 06/25/2023 8:41 AM EST 5 mLs Given 06/24/2023 8:20 PM EST 5 mLs sodium chloride 0.9% infusion 1,000 mL, at 100 mL/hr, Intravenous, CONTINUOUS, Starting on Tue06/24/23 at 2045, Until Tue06/26/23 at 1114, Recovery (Recovery-Hospital Unit) New Bag 06/26/2023 10:04 AM EST 1,000 mLs 100 mL/hr New Bag 06/26/2023 12:44 AM EST 1,000 mLs 100 mL/hr New Bag 06/24/2023 8:51 PM EST 1,000 mLs 100 mL/hr thrombin (human)-fibrin-calcium (VistaSeal) kit PRN, Starting on Tue06/24/23 at 1659, Until Tue06/26/23 at 1809, Intra-Operative (Intra-Procedure), Routine Given 06/24/2023 4:59 PM EST 10 mLs 19- Surgical Site thrombin (human)-fibrin-calcium (VistaSeal) kit PRN, Starting on Tue06/24/23 at 1700, Until Tue06/26/23 at 1809, Intra-Operative (Intra-Procedure), Routine Given 06/24/2023 5:00 PM EST 10 mLs 19- Surgical Site documented in this encounter Active and Recently Administered Medications Times are shown in EST. Scheduled Medication Order 06/24/2023 06/25/2023 06/26/2023 acetaminophen (Tylenol) tablet 975 mg (COMPLETED) 975 mg, Oral, EVERY 8 HOURS, 3 doses, First dose on Tue06/24/23 at 2045, Last dose on Tue06/25/23 at 1245, Maximum dose of acetaminophen is 4,000 mg from all sources in 24 hours. When ordered for pain, acetaminophen should be given even when other ordered pain medications are indicated., Routine 2113 (Given - Provider: Rachel Long RN) 050 (Given - Provider: Christina Irene RN)121 (Given - Provider: Juliann Fraser RN) albumin (human) 5% 250 mL intravenous solution (COMPLETED) 12.5 g, Intravenous, EVERY 30 MIN, 2 doses, First dose on Tue06/24/23 at 2015, Last dose on Tue06/24/23 at 2044, 1 bottle (unit) = 12.5 grams / 250 mL (Total Dose = 25 grams = 2 bottles), PACU Recovery, Routine 2010 (New Bag - Provider: Rachel Long RN)2040 (Stopped - Provider: Rachel Long RN)2057 (New Bag - Provider: Rachel Long RN)2127 (Stopped - Provider: Rachel Long RN) ceFAZolin (Ancef) 2 g vial attach to sodium chloride 0.9% 100 mL Mini-Bag Plus (COMPLETED) 2 g, Intravenous, HOSPITAL CODER TO O.R., 1 dose, On Tue06/24/23 at 0915, Administer over 30 Minutes, Day of Surgery (Day of Procedure), Indication for (Active or Suspected): Prophylaxis 1148 (New Bag - Provider: Ashley Pat CRNA)1540 (Bolus - Provider: Ashley Pat CRNA) docusate sodium (Colace) capsule 100 mg 100 mg, Oral, 2 TIMES DAILY, First dose on Tue06/24/23 at 2100, Until Discontinued, Routine 2113 (Given - Provider: Rachel Long RN) 0841 (Given - Provider: Juliann Fraser RN)2130 (Given - Provider: Daphne Evans, KIRA) 0809 (Given - Provider: Juliann Fraser RN) sodium chloride 0.9 % (flush) (BD PosiFlush Normal Saline 0.9) flush 5 mL 5 mL, Intravenous, 2 TIMES DAILY, First dose on Tue06/24/23 at 2100, Until Discontinued, Recovery (Recovery-Hospital Unit), Routine 2019 (Given - Provider: Rachel Long RN) 0841 (Given - Provider: Juliann Fraser RN)2129 (Given - Provider: Daphne Evans, KIRA) 0810 (Not Given - Provider: Juliann Fraser RN - Reason: See comment - Comment: IV infusing) Continuous Medication Order 06/24/2023 06/25/2023 06/26/2023 lactated ringers infusion (CANCELED) 1,000 mL, at 100 mL/hr, Intravenous, CONTINUOUS, Starting on Tue06/24/23 at 0915, Until Tue06/24/23 at 2206, Day of Surgery (Day of Procedure) 1131 (New Bag - Provider: Ashley Pat CRNA)1245 (Anesthesia Volume Adjustment - Provider: Ashley Pat CRNA)1408 (Anesthesia Volume Adjustment - Provider: Ashley Pat CRNA)1605 (Anesthesia Volume Adjustment - Provider: Ashley Pat CRNA)1859 (Anesthesia Volume Adjustment - Provider: Jovanny Silva CRNA)2200 (Canceled Entry - Provider: Daphne Evans RN - Reason: Entered in Error) PHENYLephrine (George-Synephrine) (80 mcg/mL) in sodium chloride 0.9% 250 mL infusion (CANCELED) 0-80 mcg/min (0-60 mL/hr), Intravenous, CONTINUOUS, Starting on Tue06/24/23 at 2015, Until Tue06/24/23 at 2206, Titrate to maintain mean arterial pressure (MAP) greater than 65 mmHg. Start at 40 mcg/min. Increase/decrease by 20 mcg/min every 10 minutes. Do not exceed 180 mcg/min. Please call anesthesia provider if unable to maintain MAP goal as ordered. Per the Vasopressor Administration Policy, [place] 2657: A central line must be placed for the administration of vasopressor infusions lasting longer than 8 hours. Warning Vesicant/Irritant Medication , PACU Recovery 1999 (New Bag - Provider: Rachel Long RN)2009 (Rate/Dose Change - Provider: Rachel Long, KIRA)2019 (Rate/Dose Change - Provider: Rachel Long RN)2030 (Rate/Dose Change - Provider: Rachel Long RN)2044 (Paused - Provider: Rachel Long RN) sodium chloride 0.9% infusion (CANCELED) 1,000 mL, at 100 mL/hr, Intravenous, CONTINUOUS, Starting on Tue06/24/23 at 2045, Until Tue06/26/23 at 1114, Recovery (Recovery-Hospital Unit) 2050 (New Bag - Provider: Rachel Long RN) 0044 (New Bag - Provider: Daphne Evans, KIRA)1004 (New Bag - Provider: Marie Curiel RN)1114 (Stopped - Provider: Juliann Fraser, KIRA) PRN Medication Order 06/24/2023 06/25/2023 06/26/2023 bisacodyL (Dulcolax) suppository 10 mg 10 mg, Rectal, DAILY PRN, Starting on Tue06/24/23 at 2019, Until Tue06/26/23 at 1809, Constipation, Administer if needed per patient's routine or if no bowel movement within 48 hours to achieve: (1) One bowel movement at least every 48 hours, AND (2) Without straining. - If multiple PRN bowel medications ordered, start with magnesium hydroxide, then bisacodyL. - Multiple medications may be given concomitantly for constipation., Routine calcium carbonate (TUMS) chewable tablet 500 mg 500 mg, Oral, 2 TIMES DAILY PRN, Starting on 06/25/23 at 1207, Until Tue06/26/23 at 1809, Heartburn, Routine 1212 (Given - Provider: Juliann Fraser RN)1947 (Given - Provider: Cristiane Montana RN) lidocaine (Xylocaine) 1% (10 mg/mL) injection 3 mg (COMPLETED) 3 mg (0.3 mL), Subcutaneous, ONCE PRN, 1 dose, Starting on Tue06/24/23 at 0852, Until Tue06/24/23 at 1943, for discomfort with PIV insertion, Day of Surgery (Day of Procedure), Routine 1942 (Given - Provider: Shelbie Cervantes MD - Comment: Injected into surgical site.) lidocaine (Xylocaine) 1% (10 mg/mL) injection 3 mg 3 mg (0.3 mL), Subcutaneous, ONCE PRN, 1 dose, Starting on Tue06/24/23 at 2018, Until Tue06/26/23 at 1809, for discomfort with PIV insertion, Recovery (Recovery-Hospital Unit), Routine naloxone (Narcan) (0.4 mg/mL) injection 0.04 mg (CANCELED) 0.04 mg, Intravenous, EVERY 5 MIN PRN, 3 doses, Starting on Tue06/24/23 at 1903, Until Tue06/24/23 at 2206, Opioid Reversal, for respiratory rate less than 6 or unresponsive., May repeat every 5 minutes to increase respiratory rate. DO NOT exceed 0.12 mg total dose. Notify anesthesia immediately if administered., PACU Recovery, Routine 1958 (Given - Provider: Rachel Long RN) naloxone (Narcan) (0.4 mg/mL) injection 0.2 mg 0.2 mg, Intravenous, EVERY 1 MIN PRN, 10 doses, Starting on Tue06/24/23 at 2018, Until Tue06/26/23 at 1809, Opioid Reversal, If respiratory rate less than 6 OR the patient is unable to arouse OR SpO2 is declining, Give for respiratory rate of less than or equal to 6 and patient is heavily sedated or unarousable. May repeat every 60 seconds to increase respiratory rate. DO NOT exceed 2 mg total dose., Recovery (Recovery-Hospital Unit), Routine ondansetron (pf) (Zofran) (2 mg/mL) injection 4 mg(Linked Group 1) 4 mg, Intravenous, EVERY 8 HOURS PRN, Starting on Tue06/24/23 at 2018, Until 06/26/23 at 1809, Nausea, May repeat times one in 30 minutes if ineffective. If multiple antiemetics are ordered, use ondansetron first., Recovery (Recovery-Hospital Unit) 1203 (Given - Provider: Vicky Moore RN) 0030 (Given - Provider: Daphne Evans, KIRA) ondansetron (Zofran) tablet 4 mg(Linked Group 1) 4 mg, Oral, EVERY 8 HOURS PRN, Starting on Tue06/24/23 at 2017, Until 06/26/23 at 1809, Nausea, Vomiting, If multiple antiemetics are ordered, use ondansetron first. PO Preferred. If patient unable to take PO, may give IV if ordered. May repeat times one in 45 minutes if ineffective., Recovery (Recovery-Hospital Unit), Routine 1203 (See Alternative - Provider: Vicky Moore RN) 0030 (See Alternative - Provider: Daphne Evans, KIRA) oxyCODONE (Roxicodone) tablet 10 mg(Linked Group 2) 10 mg, Oral, EVERY 4 HOURS PRN, Starting on Tue06/24/23 at 2019, Until 06/26/23 at 1809, Pain, severe pain (7-10), Routine 1010 (See Alternative - Provider: Vicky Moore RN)1451 (See Alternative - Provider: Juliann Fraser, KIRA)1949 (See Alternative - Provider: Cristiane Montana RN) 1230 (See Alternative - Provider: Juliann Fraser, KIRA) oxyCODONE (Roxicodone) tablet 5 mg(Linked Group 2) 5 mg, Oral, EVERY 4 HOURS PRN, Starting on Tue06/24/23 at 2019, Until 06/26/23 at 1809, Pain, moderate pain (4-6), Routine 1010 (Given - Provider: Vicky M Ray, RN)1451 (Given - Provider: Juliann Fraser, KIRA)1949 (Given - Provider: Cristiane Montana RN) 1230 (Given - Provider: Juliann Fraser, KIRA) oxyCODONE (Roxicodone) tablet 5 mg 5 mg, Oral, EVERY 4 HOURS PRN, Starting on Tue06/24/23 at 2019, Until 06/26/23 at 1809, Pain, Breakthrough pain rescue dose, For moderate or severe pain (4-10) unrelieved at least 60 minutes after initial PRN dose was administered Max 3 doses/24 hours. If pain still unrelieved after 3rd rescue dose within 24 hours, contact provider., Routine simethicone (Gas-X Chew) 80 mg chewable tablet 80 mg 80 mg, Oral, EVERY 6 HOURS PRN, Starting on 06/26/23 at 0054, Until 06/26/23 at 1809, Cramping, Routine 0113 (Given - Provider: Daphne Evans RN) sodium chloride 0.9 % (flush) (BD PosiFlush Normal Saline 0.9) flush 5-20 mL 5-20 mL, Intravenous, EVERY 1 MIN PRN, Starting on Tue06/24/23 at 2018, Until 06/26/23 at 1809, flush, Flush pertains to all indwelling lines. Flush per protocol found in the job aid using the link provided on this medication record., Recovery (Recovery-Hospital Unit), Routine thrombin (human)-fibrin-calcium (VistaSeal) kit (CANCELED) PRN, Starting on Tue06/24/23 at 1659, Until 06/26/23 at 1809, Intra-Operative (Intra-Procedure), Routine 1659 (Given - Provider: Shelbie Cervantes MD - Comment: Right side RLQ) thrombin (human)-fibrin-calcium (VistaSeal) kit (CANCELED) PRN, Starting on Tue06/24/23 at 1700, Until 06/26/23 at 1809, Intra-Operative (Intra-Procedure), Routine 1700 (Given - Provider: Shelbie Cervantes MD - Comment: Left side LLQ) Linked Groups Order Group 1: ondansetron (Zofran) tablet 4 mgJump to med 4 mg, Oral, EVERY 8 HOURS PRN, Starting on Tue06/24/23 at 2017, Until 06/26/23 at 1809, Nausea, Vomiting, If multiple antiemetics are ordered, use ondansetron first. PO Preferred. If patient unable to take PO, may give IV if ordered. May repeat times one in 45 minutes if ineffective., Recovery (Recovery-Hospital Unit), Routine Or ondansetron (pf) (Zofran) (2 mg/mL) injection 4 mgJump to med 4 mg, Intravenous, EVERY 8 HOURS PRN, Starting on Tue06/24/23 at 2017, Until 06/26/23 at 1809, Nausea, May repeat times one in 30 minutes if ineffective. If multiple antiemetics are ordered, use ondansetron first., Recovery (Recovery-Hospital Unit) Group 2: oxyCODONE (Roxicodone) tablet 5 mgJump to med 5 mg, Oral, EVERY 4 HOURS PRN, Starting on Tue06/24/23 at 2018, Until 06/26/23 at 1809, Pain, moderate pain (4-6), Routine Or oxyCODONE (Roxicodone) tablet 10 mgJump to med 10 mg, Oral, EVERY 4 HOURS PRN, Starting on Tue06/24/23 at 2018, Until Tue06/26/23 at 1809, Pain, severe pain (7-10), Routine documented in this encounter Care Teams Cupola Tapper Helper Relationship Specialty Start Date End Date Shannan Arellano, GENERAL EDUCATION INSTRUCTOR [place] [address] PCP - General Family Medicine 02/03/23 documented as of this encounter
--- OUTSIDE RECORDS SUMMARY | 2024-06-04 17:31 | XMS_ITS | Encounter Summary ---
Author Organization [facility] Address [facility] [address] Care Team Providers Care Senior Contract Specialist Name Role Phone Shannan Arellano SAMPLER OVENS Primary Care Provider [phone] Reason for Visit * Physical Therapy (Routine) - Authorized Specialty Diagnoses / Procedures Referred By Marry kelsey Referred To Contact Physical Therapy Diagnoses Penile cancer Zachary Garcia MD [facility] [place] [address] [facility] [place] [address] Referral ID Status Reason Start Date Expiration Date Visits Requested Visits Authorized [id number] Authorized Evaluate and Treat 05/17/2023 06/15/2024 100 100 Encounter Details Date Type Department Care Team (Late st Contact Info) Description 07/07/2023 10:00 AM EST Office Visit [place] [address] Espinoza, Caroline E, OT Edema, unspecified type Social History Tobacco Use Types Packs/Day Years Used Date Smoking Tobacco: Never Smokeless Tobacco: Never Alcohol Use Standard Drinks/Week Comments Yes 1 (1 standard drink = 0.6 oz pur e alcohol) [facility] Inpatient Questions Answer Date Recorded Does Anyone [...] - Therapy - Caroline Espinoza, OT - 07/07/2023 10:00 AM ESTSummary: OT/CLT LE LYMPHEDEMA TREATMENT NOTE OT/CLT LE LYMPHEDEMA INITIAL EXAMINATION Date of Exam/First treatment: 05/31/23 Date of [...] still he states that they are annoying. Plan for adjuvant chemo or radiation pending. He has appointment today and is expecting results from surgery and plan moving forward. Treatment Diagnosis:Penile CA with pending Left inguinal [...] CURRENT ACTIVITY LEVEL:Active lifestyle and work. 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 PAIN: [...] No belly fluid noted. Incision healing well. Pieter still in. No unexpected redness . Normal post op swelling. 5) LE circumferences (cm) Right 05/31/23 Left 05/31/23 RIGHT 07/07/22 LEFT 07/07/22 Mid foot 22.8 23.2 23.3 23.1 Ankle 25.4 24 22.8 22.6 Calf 33 35.3 35 35.3 D 32.3 31.8 32.5 32 Knee 35.7 35.5 35.7 36.2 Knee +12 45.3 46.8 41.5 45.6 Upper thigh G 55 53.4 52.3 57 A-D Length 38 A-G Length 75 32 waist Recommended JUZO 20-30 MMhG compression short size II knee high Compression bike short. Recs today for towel padding at scrotal area as needed. Information given to order through lymphedema Lanx 7) mild intermittent scrotal edema. Occasional urinary [...] techniques: Rolling. Muscle pump HEP. elevation Therapy Intermediate Goals 12 weeks 1. Patient will demonstrate ability to maintain reduction in swelling utilizing all techniques taught. THERAPEUTIC INTERVENTIONS UTILIZED TODAY: OT/CLT initial evaluation Initial education and training for MLD sequence including deep diaphragmatic breathing and deep abdominal lymph node drainage. Patient measure and given information for juzo compression shorts size II . Patient will order through lymphedema Linea PLAN: OT/CLT SERVICES 2x/ month x 2 months. Adding or tapering visits as needed. Treatment: manual lymphatic drainage compression bandaging if indicated Exercise- muscle pump HEP teaching self care garment fitting Adjunct fluid management techniques Charges Minutes OT EVAL LOW (20644) OT EVAL MOD (27930) OT EVAL HIGH (78807) MANUAL THERAPY(29415) 45 SELF CARE/HOME MANAGEMENT (72135) `15 THERAPEUTIC/FUNCTIONAL ACTIVITIES(68908) THEREX NEUROMUSCULAR BINA(15678) THEREX: STRENGTH ROM (21124) Caroline Espinoza OT/CLT documented in this encounter Plan of Treatment Upcoming Encounters Date Type Department Care Team (Late st Contact Info) Description 06/07/2024 1:00 PM EST TH Visit (TeleHealth) [place] [address] Zachary Garcia MD [facility] [place] [address] 06/11/2024 9:00 AM EST Office Visit [place] [address] Caroline Espinoza OT 07/10/2024 8:00 AM EST Office Visit [place] [address] Caroline Espinoza OT 07/24/2024 10:00 AM EST Office Visit [place] [address] Caroline Espinoza OT 08/07/2024 10:00 AM EST Office Visit [place] [address] Caroline Espinoza OT 08/21/2024 10:00 AM EST Office Visit [place] [address] Caroline Espinoza OT documented as of this encounter Visit Diagnoses Diagnosis Edema, unspecified type documented in this encounter Care Teams Senior Contract Specialist Relationship Specialty Start Date End Date Shannan Arellano, SAMPLER [place] [address] PCP - General Family Medicine 02/03/23 documented as of this encounter
--- OUTSIDE RECORDS SUMMARY | 2024-06-04 17:31 | XMS_ITS | Encounter Summary ---
Author Organization [facility] Address [facility] [place] [address] Care Team Providers Care Grain Cleaner And Transfer Operator Name Role Phone Shannan Arellano APRN Primary Care Provider [phone] Encounter Details Date Type Department Care Team (Latest Contact Info) Description 07/15/2023 Travel Social History Tobacco Use Types Packs/Day [...] PM EST TH Visit (TeleHealth) [place] [address] Zachary Garcia MD [facility] [place] [address] 06/11/2024 9:00 AM EST Office [place] [address] Caroline Espinoza OT 07/10/2024 8:00 AM EST Office [place] [address] Espinoza, Caroline E, OT 07/24/2024 10:00 AM EST Office [place] [address] Espinoza, Caroline E, OT 08/07/2024 10:00 AM EST Office [place] [address] Espinoza, Caroline E, OT 08/21/2024 10:00 AM EST Office [place] [address] Espinoza, Caroline E, OT documented as of this encounter Visit Diagnoses Not on filedocumented in this encounter Care Teams Grain Cleaner And Transfer Operator Relationship Specialty Start Date End Date Shannan Arellano, CONSULTING APPLICATION ENGINEER [address] [address] PCP - General Family Medicine 02/03/23 documented as of this encounter
--- OUTSIDE RECORDS SUMMARY | 2024-06-04 17:31 | XMS_ITS | Encounter Summary ---
Author Organization [facility] Address [facility] [place] [address] Care Team Providers Care Medication Aide Name Role Phone Shannan Arellano APRN Primary Care Provider [phone] Encounter Details Date Type Department Care Team (Late st Contact Info) Description 07/07/2023 2:00 PM EST [place] [phone] Shelbie Garcia MD [facility] [place] [address] Cancer of penis Social History Tobacco Use Types Packs/Day Years Used Date Smoking Tobacco: Never Smokeless Tobacco: Never Alcohol Use Standard Drinks/Week Comments Yes 1 (1 standard drink = 0.6 oz pur e alcohol) [facility] Inpatient Questions Answer Date Recorded Does [...] Sign Reading Time Taken Comments Blood Pressure 110/77 07/07/2023 1:48 PM EST Pulse 85 07/07/2023 1:48 PM EST Temperature - - Respiratory Rate - - Oxygen Saturation 95% 07/07/2023 1:48 PM EST Inhaled Oxygen Concentration - - Weight 73.9 kg (163 lb) 07/07/2023 1:48 PM EST p t reported Height 172.7 cm (5' 8) 07/07/2023 1:48 PM EST Body Mass Index 24.78 07/07/2023 1:48 PM EST documented in this encounter Progress Notes * Shelbie Garcia MD - 07/07/2023 2:00 PM EST Images from the original note were not included. Patient Name: Ebony Contreras Date of Service: 07/07/2023 Primary Care Provider: Shannan Arellano APRN Reason [...] dissection Left lap pelvic node dissection Path: [id number] poorly differentiated penile cancer 4/10 Left inguinal and 3/13 Left pelvic nodes. 0/8 Right nodes. Margins Negative (to be confirmed at tumor board review) [facility] Department of Pathology and Laboratory Medicine Software Technician: Corbin Doll MD, FCAP CLIA Certificate: [id number] Name: EBONY CONTRERAS Provider: SHELBIE GARCIA Client: [facility] /Age/Sex: 1950 73 years Male Location: L2WDS; 0210; A The signing pathologist has (i) examined the relevant preparation(s) for the specimen(s); and (ii) rendered or confirmed the diagnosis(es). [facility] Printed: 07/06/2023 11:48 EST Dept. of Pathology and Laboratory Medicine [place] [address] Pathology Report Collected: 06/24/2023 12:57 EST Received: 06/24/2023 13:23 EST Surgical Pathology DIAGNOSIS A - Penile foreskin, excision: No evidence of high-grade dysplasia or malignancy. 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 C - Additional [...] Ennis Verified: 07/06/2023 11:48 Pathologist Performed at: -[facility] Dept. of Pathology, [place] [address] Software Technician: Corbin Doll MD, FCAP, [place] Certificate: [id number] SYNOPTIC Specimen Procedure: Wide local excision of [...] Block(s): B3, B4, B6 Normal Block(s): N/A [facility] 2022 Q3 Release DISCUSSION The infiltrating [...] well) ~ 2-300 cc from each drain Past Medical History: None Past Surgical History: None Medications: Reviewed Allergies: Reviewed Family History: There is no family history of Penile issues. Father ASCVD. 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 The patient has been for 30 years [...] due to its small size and location. Impression: [id number] poorly diff penile cancer sp local excision and bilateral node dissection. With negative margins 08/30 pelvic nodes positive. DOing well Minimal comorbidity Plan: Continue stockings Bike Shorts Culture Right and Left KEN Keflex to once a day Continue Eliquis 1 week for a check Tumor board Discussed his pathology All questions were answered documented in this encounter Plan of Treatment Upcoming Encounters Date Type Department Care Team (Late st Contact Info) Description 06/07/2024 1:00 PM EST TH Visit (TeleHealth) [place] [address] Shelbie Garcia MD [facility] [place] [address] 06/11/2024 9:00 AM EST Office [place] [phone] Caroline Espinoza OT 07/10/2024 8:00 AM EST Office [place] [address] Espinoza Caroline E, OT 07/24/2024 10:00 AM EST Office [place] [address] Espinoza, Caroline E, OT 08/07/2024 10:00 AM EST Office [place] [address] Espinoza, Caroline E, OT 08/21/2024 10:00 AM EST Office [place] [address] Espinoza, Caroline E, OT documented as of this encounter Visit Diagnoses Diagnosis Cancer of penis Malignant neoplasm of penis, part unspecified documented in this encounter Care Teams Medication Aide Relationship Specialty Start Date End Date Shannan Arellano, FIRER LOCOMOTIVE CRANE [address] [place] [address] PCP - General Family Medicine 02/03/23 documented as of this encounter
--- OUTSIDE RECORDS SUMMARY | 2024-06-04 17:31 | XMS_ITS | Encounter Summary ---
Author Organization [facility] [address] Care Team Providers Care Red Mud Thickener Operator Name Role Phone Shannan Arellano APRN Primary Care Provider [phone] Encounter Details Date Type Department Care Team (Late st Contact Info) Description 07/19/2023 Tele[place] [phone] Zo Arboleda, RN Social History Tobacco Use Types Packs/Day Years Used Date Smoking Tobacco: Never Smokeless Tobacco: Never Alcohol Use Standard Drinks/Week Comments Yes 1 (1 standard drink = 0.6 oz pur e alcohol) [facility] Inpatient Questions Answer Date Recorded Does [...] Progress Notes * Zo Arboleda RN - 07/19/2023 10:11 AM EST Urology resident camera control operator paged. documented in this encounter Miscellaneous Notes * Telephone Encounter - Zo Arboleda RN - 07/19/2023 10:09 AM EST Copied from [facility] #[id number]. Topic: Specialty Dept CRMs - Triage >> Jul 19, 2023 9:59 AM Allyson Alnoso wrote: Triage Message Specialist: Zachary Garcia MD Relationship (if other than patient-full name): Sylvie, spouse Symptom: Patient is here for another appointment. Patient is throwing up, has swelling on left sidemore than usual. The fluid that comes out into his drain is pink and hasnt been pink Has patient experienced symptom before yes If patient has experienced symptom before, when was the last time this occurred hasn't been pinkishfor awhile Is patient currently having symptom yes When did symptom begin last night Additional Comments: Patient is planning on staying at - wondering if possible to see Dr Garcia today while they are here. Please call to discuss. documented in this encounter Plan of Treatment Upcoming Encounters Date Type Department Care Team (Late st Contact Info) Description 06/07/2024 1:00 PM EST TH Visit (TeleHealth) [place] [address] Zachary Garcia MD [facility] [place] [address] 06/11/2024 9:00 AM EST Office Visit [place] [address] Tia Espinozayl E, OT 07/10/2024 8:00 AM EST Office Visit [place] [address] Espinoza Caroline E, OT 07/24/2024 10:00 AM EST Office Visit [place] [address] EspinozaTia de la torreyl E, OT 08/07/2024 10:00 AM EST Office Visit [place] [address] EspinozaTia de la torreyl E, OT 08/21/2024 10:00 AM EST Office Visit [place] [address] Caroline Espinoza OT documented as of this encounter Visit Diagnoses Not on filedocumented in this encounter Care Teams Red Mud Thickener Operator Relationship Specialty Start Date End Date Shannan Arellano, BEAN WEIGHER [address] [place] [address] PCP - General Family Medicine 02/03/23 documented as of this encounter
--- OUTSIDE RECORDS SUMMARY | 2024-06-04 17:31 | XMS_ITS | Encounter Summary ---
Author Organization [facility] Address [facility] [place] [address] Care Team Providers Care Neurosurgical Nurse Practitioner Name Role Phone Shannan Arellano GAYLE Primary Care Provider [phone] Reason for Visit * Auth/Cert (Routine) Specialty Diagnoses / Procedures Referred By Marry t Referred To Contact Diagnoses PENILE CANCER Procedures PRO REMOVAL PENIS, PARTIAL PRO REMOVE GROIN LYMPH NODES SUPERF PENILE AMPUTATION, PARTIAL (WRVU 11.01) LYMPHADENECTOMY, INGUINOFEMORAL- ADRIEN (WRVU 13.62) Shelbie Cervantes MD [facility] [place] [address] [facility] [place] Referral ID Status Reason Start Date Expiration Date Visits Re quested Visits Authorized [id number] 1 1 Encounter Details Date Type Department Care Team (Latest Contact Info) Description 06/24/2023 8:32 AM EST - 06/26/2023 4:09 PM [facility] Hospital Encounter Surgical Unit Level 2 [place] [address] Shelbie Cervantes MD [facility] [place] [address] Discharge Disposition: Home Social History Tobacco Use [...] Sign Reading Time Taken Comments Blood Pressure 141/94 06/26/2023 7:33 AM EST Pulse 55 06/24/2023 10:00 PM EST Temperature 36.7 ??C (98.1 ??F) 06/26/2023 7:33 AM ES T Respiratory Rate 18 06/26/2023 7:33 AM EST Oxygen Saturation 92% 06/26/2023 7:33 AM EST Inhaled Oxygen Concentration - - [...] Eduardo Contreras Patient Age: 73 y.o. Language: Cape Verdean Race: White Ethnicity: Not nor Admit date: [...] regions. Hospital Course: Patient was admitted to [facility] via the same day surgery program and [...] may be used if needed and are anrh-fnc-pepmgle medications available at most local pharmacies. Prunes [...] expect 2-5 business days prior to arrival. [facility] DRAIN CARE INSTRUCTIONS How do I care [...] AM Caroline Espinoza OT Occupational Therapy at [facility] Arrive at: [employer] Area [phone] Follow-Up: Future Appointments Date Time Provider Department Center 07/07/2023 10:00 AM Caroline Espinoza OT OT [facility] Primary Care Provider: Shannan Arellano APRN [phone] Unexpected Findings: None Call your doctor if: [...] was managed by the Urology Team at [facility]. If you have any questions or concerns, please feel free to contact us. Provider Contact Information: Urology Clinic: [facility] (after business hours): Total time spent on discharge including qgms-et-dssx time, care coordination, and discharge summarypreparation: 45 minutes Associated attestation - Ashley Vigil MD - 06/27/2023 11:45 AM EST I [...] may be used if needed and are vamg-kyz-jqcfmze medications available at most local pharmacies. Prunes [...] expect 2-5 business days prior to arrival. [facility] DRAIN CARE INSTRUCTIONS How do I care [...] Patient: Eduardo Contreras : 1950 Room: [address] [place] [address] Admit date: 06/24/2023 Attending: Shelbie Cervantes MD [...] Patient: Eduardo Contreras : 1950 Room: [address] [place] [address] Admit date: 06/24/2023 Attending: Shelbie Cervantes MD [...] aware. Plan for Albumin and Neogtt. 1944 Bowen, MD at bedside holding a jaw thrust for obstruction. George pushed by MD for low pressures and gtt started at 50mcg/min. Albumin brought to bedside and started. Narcan given per MD to try andarouse pt without effect. 2024 Nasal airway removed. 2114 Family at bedside. Pt denying pain and nausea. Clear liquids tolerated. VS remaining stable off of george gtt. 2129 MD Bowen following up with pt at bedside. 2299 Report given to KIRA Garay for change [...] 2.59) performed by Shelbie Cervantes MD at [facility] No Known Allergies MEDICATIONS No [...] home pharmacy. PIV removed. Patient left 2 [place] in a wheelchair accompanied by 2 [place] staff. Problem: Adult Inpatient Plan of Care [...] (98.2 ??F) Temporal 55 13 94 % 06/24/23 214 106/68 -- -- 63 14 93 % 06/24/23 2130 112/66 -- -- 61 11 93 % [...] Scott MD - 06/24/2023 12:31 PM EST [facility] Operative Note Patient Name: Eduardo Contreras : [id number] MR#: [id number] Case Date: 06/24/2023 Surgeon: Surgeon(s) and Role: * Sehlbie Cervantes MD - Primary * Zana Scott [...] [place] [phone] PENILE CANCER Penis Glans excision YES, Please perform frozen section No 06/24/2023 1:19 PM Time specimen removed from patient: 1:15 PM Number of tissue samples (in container) 1 Biospecimen to store? No SPECIMEN TO PATHOLOGY Freeze blue opposite margin [place] 27 [place] [phone] PENILE CANCER Additional Glans excision YES, Please [...] Biospecimen to store? No Drains: Bilateral 19 Barbadian Alex drains in inguinal spaces, 16 Barbadian Black catheter Surgical Closure: Primary Closure - [...] mm air seal port chichi 5 mm medical lab assistant port were also inserted at the [...] This was closed using a series of fwyuiv-gq-cksta sutures on UR 6 needles. The additional [...] PM EST TH Visit (TeleHealth) [place] [address] Shelbie Cervantes MD [facility] [place] [address] 06/11/2024 9:00 AM EST Office [place] [address] Espinoza, Caroline E, OT 07/10/2024 8:00 AM EST Office [place] [address] Espinoza, Caroline E, OT 07/24/2024 10:00 AM EST Office [place] [address] Espinoza, Caroline E, OT 08/07/2024 10:00 AM EST Office [place] [address] Espinoza, Caroline E, OT 08/21/2024 10:00 AM EST Office [place] [address] Espinoza, Caroline E, OT documented as of [...] 06/24/2023 12:57 PM EST Muscle-Skin Flap, Leg ([id number]) Yes 06/24/2023 11:31 AM EST PENILE CANCER Unlisted Laparoscopy Procedure Lymphatic System ([id number]) Yes 06/24/2023 11:31 AM EST PENILE CANCER Remove Groin Lymph Nodes Superf ([id number]) Yes 06/24/2023 11:31 AM EST PENILE CANCER Removal Penis, Partial (34047) Yes 06/24/2023 11:31 AM EST PENILE CANCER documented in this encounter Results * (ABNORMAL) Differential, Automated (06/26/2023 12:35 AM EST) Neutrophil % 83.0 % [facility] Neutrophil Absolute 8.87(H) 1.70 - 6.10 x10(3)/mc L [facility] Lymph % 10.6 % [facility] Lymphocytes Abs 1.1 0.9 - 3.2 x10(3)/ L [facility] Monocyte % 5.8 % [facility] Monocyte Abs 0.6 0.3 - 0.9 x10(3)/ L [facility] Eos % 0.1 % [facility] Eosinophils Abs 0.0 0.0 - 0.4 x10(3)/[facility] Basophil % 0.2 % [facility] Baso Absolute 0.0 0.0 - 0.1 x10(3)/ L [facility] Immature Gran % 0.30 % [facility] Comment: Immature granulocytes(IG's)percentage and absolute count will include metamyelocytes, myelocytes, and promyelocytes. Blood smears from CBCs yielding IG's will be scanned manually for concordance. If this scan disagrees with the automated IG or if promyelocytes are noted, a manual differential will be performed. Immature Gran Absolute 0.03 0.00 - 0.04 x10(3)/ L [facility] Blood 06/26/2023 12:3 5 AM EST 06/26/2023 12:48 AM EST Narrative Resulting Agency Comment Spec In Lab Zana Scott MD HEMATOLOGY OR DERABLES Performing Organization Address City/State/[facility] Co de Phone Number [facility] [place] [address] * (ABNORMAL) Hemogram (06/26/2023 12:35 AM EST) White Blood Cell 10.7(H) 4.0 - 9.5 x10(3)/mc L [facility] Red Blood Cell 4.49(L) 4.58 - 5.54 x10(6)/ L [facility] Hemoglobin 13.6(L) 13.7 - 16.5 g/dL [facility] Hematocrit 40.8 40.5 - 48.5 % [facility] Mean Cell Volume 90.9 82.9 - 93.1 fL [facility] Mean Cell Hemoglobin 30.3 27.5 - 32.1 pg [facility] Mean Cell Hemoglobin Concentration 33.3 32.0 - 35.7 g/dL [facility] Platelet 214 145 - 357 x10(3)/mc L [facility] RDW Standard Deviation 41.8 36.0 - 45.0 fL [facility] RDW coefficient of variation 12.5 11.4 - 13.8 % [facility] Mean Platelet Volume 10.0 7.6 - 12.9 fL [facility] NRBC% auto 0.0 % [facility] NRBC Absolute 0.000 0.000 - 0.000 x10(3)/mc L [facility] Blood 06/26/2023 12:3 5 AM EST 06/26/2023 12:48 AM EST Narrative Resulting Agency Comment Spec In Lab Zana Scott MD HEMATOLOGY OR DERABLES Performing Organization Address City/State/[facility] Co de Phone Number [facility] [place] [address] * (ABNORMAL) Basic Metabolic Panel (non-fasting) (06/26/2023 12:35 AM EST) Glucose 152 65 - 199 mg/dL [facility] Comment:Diabetes: >=200 mg/d L plus symptoms Blood Urea Nitrogen 11 10 - 20 mg/dL [facility] Creatinine 0.77(L) 0.80 - 1.50 mg/dL [facility] Sodium 138 135 - 145 mmol/L [facility] Potassium 4.2 3.5 - 5.0 mmol/L [facility] Comment: Please note: ??Patients with WBC >100,000 may have falsely elevated Potassium levels. ??For accurate Potassium quantification in these patients send serum separator tube (gold top) for subsequent determinations. ??Contact the Clinical Chemistry Laboratory if there are any questions. Chloride 104 98 - 107 mmol/L [facility] Carbon Dioxide 21(L) 22 - 31 mmol/L [facility] Anion Gap 13 5 - 15 mmol/L [facility] Calcium 8.6 8.5 - 10.5 mg/dL [facility] Est Glomerular Filtration Rate 95 >=60 mL/min/1. 73 m?? [facility] Comment: This patient's estimated GFR [...] In Lab Shelbie Cervantes MD CHEMISTRY ORDERABLES Performing Organization Address City/State/[facility] Co de Phone Number [facility] [place] [address] * (ABNORMAL) Differential, Automated (06/25/2023 5:37 AM EST) Neutrophil % 84.3 % [facility] Neutrophil Absolute 8.72(H) 1.70 - 6.10 x10(3)/mc L [facility] Lymph % 9.5 % [facility] Lymphocytes Abs 1.0 0.9 - 3.2 x10(3)/mc L [facility] Monocyte % 5.6 % [facility] Monocyte Abs 0.6 0.3 - 0.9 x10(3)/mc L [facility] Eos % 0.0 % [facility] Eosinophils Abs 0.0 0.0 - 0.4 x10(3)/mc L [facility] Basophil % 0.1 % [facility] Baso Absolute 0.0 0.0 - 0.1 x10(3)/mc L [facility] Immature Gran % 0.50 % [facility] Comment: Immature granulocytes(IG's)percentage and absolute count will include metamyelocytes, myelocytes, and promyelocytes. Blood smears from CBCs yielding IG's will be scanned manually for concordance. If this scan disagrees with the automated IG or if promyelocytes are noted, a manual differential will be performed. Immature Gran Absolute 0.05(H) 0.00 - 0.04 x10(3)/mc L [facility] Blood 06/25/2023 5:37 AM EST 06/25/2023 5:48 AM EST Narrative Resulting Agency Comment Spec In Lab Zana Scott MD HEMATOLOGY OR DERABLES Performing Organization Address City/[facility]/ZIP Co de Phone Number [facility] [place] [address] * (ABNORMAL) Hemogram (06/25/2023 5:37 AM EST) White Blood Cell 10.3(H) 4.0 - 9.5 x10(3)/ L [facility] Red Blood Cell 4.08(L) 4.58 - 5.54 x10(6)/ L [facility] Hemoglobin 12.7(L) 13.7 - 16.5 g/dL [facility] Hematocrit 36.8(L) 40.5 - 48.5 % [facility] Mean Cell Volume 90.2 82.9 - 93.1 fL [facility] Mean Cell Hemoglobin 31.1 27.5 - 32.1 pg [facility] Mean Cell Hemoglobin Concentration 34.5 32.0 - 35.7 g/dL [facility] Platelet 200 145 - 357 x10(3)/mc L [facility] RDW Standard Deviation 41.0 36.0 - 45.0 fL [facility] RDW coefficient of variation 12.3 11.4 - 13.8 % [facility] Mean Platelet Volume 10.0 7.6 - 12.9 fL [facility] NRBC% auto 0.0 % [facility] NRBC Absolute 0.000 0.000 - 0.000 x10(3)/mc L [facility] Blood 06/25/2023 5:37 AM EST 06/25/2023 5:48 AM EST Narrative Resulting Agency Comment Spec In Lab Zana Scott MD HEMATOLOGY OR DERABLES Performing Organization Address City/[facility]/ZIP Co de Phone Number [facility] [place] [address] * (ABNORMAL) Basic Metabolic Panel (non-fasting) (06/25/2023 5:37 AM EST) Glucose 162 65 - 199 mg/dL [facility] Comment:Diabetes: >=200 mg/d L plus symptoms Blood Urea Nitrogen 14 10 - 20 mg/dL [facility] Creatinine 0.82 0.80 - 1.50 mg/dL [facility] Sodium 140 135 - 145 mmol/L [facility] Potassium 4.4 3.5 - 5.0 mmol/L [facility] Comment: Please note: ??Patients with WBC >100,000 may have falsely elevated Potassium levels. ??For accurate Potassium quantification in these patients send serum separator tube (gold top) for subsequent determinations. ??Contact the Clinical Chemistry Laboratory if there are any questions. Chloride 106 98 - 107 mmol/L [facility] Carbon Dioxide 22 22 - 31 mmol/L [facility] Anion Gap 12 5 - 15 mmol/L [facility] Calcium 8.4(L) 8.5 - 10.5 mg/dL [facility] Est Glomerular Filtration Rate 93 >=60 mL/min/1. 73 m?? [facility] Comment: This patient's estimated GFR was [...] In Lab Shelbie Cervantes MD CHEMISTRY ORDERABLES [facility] [place] [address] * Specimen to Pathology (06/24/2023 6:57 PM EST) AP Specimen 06/24/2023 6:57 PM EST 06/24/2023 6:57 PM EST Narrative [facility] - 06/24/2023 6:57 PM EST Specimen requisition ordered. ??Separate Pathology report to follow Shelbie Cervantes MD PATHOLOGY/CYTOLOGY O RDJOSE ANGEL Performing Organization Address City/[facility]/ZIP Co de Phone Number [facility] [place] [address] * Specimen to Pathology (06/24/2023 4:30 PM EST) AP Specimen 06/24/2023 4:30 PM EST 06/24/2023 4:30 PM EST Narrative [facility] - 06/24/2023 4:30 PM EST Specimen requisition ordered. ??Separate Pathology report to follow Shelbie Cervantes MD PATHOLOGY/CYTOLOGY O RDJOSE ANGEL Performing Organization Address [facility] Co de Phone Number [facility] [place] [address] * Specimen to Pathology (06/24/2023 3:26 PM EST) AP Specimen 06/24/2023 3:26 PM EST 06/24/2023 3:26 PM EST Narrative [facility] - 06/24/2023 3:26 PM EST Specimen requisition ordered. ??Separate Pathology report to follow Shelbie Cervantes MD PATHOLOGY/CYTOLOGY O RDERAKENY Performing Organization Address [facility] Co de Phone Number [facility] [place] [place] [address] * Specimen to Pathology (06/24/2023 1:19 PM EST) AP Specimen 06/24/2023 1:19 PM EST 06/24/2023 1:19 PM EST Narrative [facility] - 06/24/2023 1:19 PM EST Specimen requisition ordered. ??Separate Pathology report to follow Shelbie Cervantes MD PATHOLOGY/CYTOLOGY O RDJOSE ANGEL Performing Organization Address City/[facility] Co de Phone Number [facility] [place] [place] [address] * Specimen to Pathology (06/24/2023 1:19 PM EST) AP Specimen 06/24/2023 1:19 PM EST 06/24/2023 1:19 PM EST Narrative [facility] - 06/24/2023 1:19 PM EST Specimen requisition ordered. ??Separate Pathology report to follow Shelbie Cervantes MD PATHOLOGY/CYTOLOGY O HERON Performing Organization Address [facility] [place] [address] * Specimen to Pathology (06/24/2023 1:04 PM EST) AP Specimen 06/24/2023 1:04 PM EST 06/24/2023 1:04 PM EST Narrative [facility] - 06/24/2023 1:04 PM EST Specimen requisition ordered. ??Separate Pathology report to follow Shelbie Cervantes MD PATHOLOGY/CYTOLOGY O HERON Performing Organization Address [facility] [place] [address] * Surgical Pathology Report (06/24/2023 12:57 PM EST) Final Diagnosis [id number] ? Location: [facility]; [facility]; A The signing pathologist has (i) examined the relevant preparation(s) for the specimen(s) and (ii) rendered or confirmed the diagnosis(es). . ?Surgical Pathology DIAGNOSIS A - Penile foreskin, excision: ?No evidence of high-grade dysplasia or malignancy. 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 C - Additional [...] Ennis Verified: ??07/06/2023 11:48 ??Pathologist Performed at: ??-[facility] Dept. of Pathology, [place] [address] Bulbs Farmworker: Corbin Doll MD, FCAP, ??CLIA Certificate: [id number] SYNOPTIC Specimen ? Procedure: ??Wide local excision [...] B4, B6 ? Normal Block(s): ??N/A ? [facility] 2022 Q3 Release DISCUSSION The infiltrating [...] lymphoepithelioma-like , or medullary subtypes). Scanned slides: [id number] B2-3 [id number] B 2-4 [id number] B3-1 [id number] B4-1 [id number] B5-1 [id number] B6-1 [id number] E5-1 [id number] E12-1 [id number] E13-1 [id number] E14-1 [id number] F4-1 [id number] F7-1 [id number] F9-1 ADDITIONAL STUDIES Formalin-fixed, paraffin-embedded tissue sections [...] No discrete lesions are grossly identified. Sections/Processing: Director Of Adult Epilepsy sections in 2 cassettes labeled A1-A2. B [...] of concern, perpendicular section, submitted as BFS2. Director Of Adult Epilepsy sections in 6 cassettes as follows: ?B1: [...] the surrounding fat, and submitted as DFS1-DFS6. Director Of Adult Epilepsy sections in 15 cassettes as follows: ?D1: Four intact candidate lymph nodes, frozen section residual tissues, entirely ? submitted as DFS1 ?D2: Single candidate lymph node, bisected and entirely submitted as DFS2 ?D3: Single candidate lymph node, bisected and entirely submitted as DFS3 ?D4: Single candidate lymph node, serially sectioned, residual tissues ? outreach representative sections submitted as DFS4 ?D5: Single candidate lymph node serially sectioned and outreach representative sections ? submitted as DFS5 ?D6: Single candidate lymph node, serially sectioned and outreach representative sections ? submitted as DFS6 ?D7-D9: Remainder of the lymph node, outreach representative sections initially submitted as ? DFS4 ?D10-D11: Remainder of the lymph node, outreach representative sections initially submitted ? as DFS5 ?D12-D15: ??Remainder of the lymph node, outreach representative sections initially submitted ? as DFS6 E - Labeled/Fixative: Left inguinal lymph nodes, fresh. Quantity/Size: Single, 9.0 x 6.5 x 4.0 cm. Tissue Description: Aggregate yellow-brown, lobulated adipose tissue with multiple, irregular to rounded firm baugh-white lymph nodes, ranging from 0.5 cm, up to 6.5 cm. Director Of Adult Epilepsy sections in 14 cassettes as follows: ?E1: Two intact lymph node candidates, submitted in toto ?E2: One candidate lymph node, serially sectioned and entirely submitted ?E3: One candidate lymph node, serially sectioned and entirely submitted ?E4-E5: Two candidate lymph nodes each cassette, differentially inked and bisected ?E6-E11: One candidate lymph node, serially sectioned and entirely submitted ?E12-E14: Director Of Adult Epilepsy sections from each of three positive lymph nodes F - Labeled/Fixative: Left pelvic nodes, fresh. Quantity/Size: Fragments, 8.0 x 6.0 x 2.5 cm in aggregate. Tissue Description: Adipose tissue with multiple, irregular to ovoid yellow-brown lymph nodes ranging from 0.4 cm, up to 3.0 cm. Director Of Adult Epilepsy sections in 9 cassettes as follows: ?F1: Four intact candidate lymph nodes, submitted in toto ?F2: Three intact candidate lymph nodes, submitted in toto ?F3-F4: Two candidate lymph nodes each cassette, differentially inked and bisected ?F5: One candidate lymph node, serially sectioned ?F6-F7: One candidate lymph node, serially sectioned ?F8-F9: One lymph node candidate, outreach representative sections ??shb ?Frozen Section FROZEN SECTION DIAGNOSIS DFS1. Right inguinal lymph nodes: - Seven lymph nodes, negative for carcinoma (0/7). Note: fatty tissue with extensive folding artifacts. . FROZEN SECTION DIAGNOSIS 06/24/23 16:47/LL Electronically signed by: ?Souleymane Solano MD Verified: ??06/24/2023 16:54 ??Pathologist Performed at: ??-[facility] Dept. of Pathology, [place], [place] [address] Bulbs Farmworker: Corbin Doll MD, AP, ??IA Certificate: [id number] This intraoperative consultation should be interpreted as [...] MD Verified: ??06/24/2023 14:16 ??Pathologist Performed at: ??-[facility] Dept. of Pathology, [place] [address] Bulbs Farmworker: Corbin Doll MD, FCAP, ??CLIA Certificate: [id number] This intraoperative consultation should be interpreted as a preliminary diagnosis pending review of the entire specimen and special studies, if any. A final Surgical Pathology report will follow this preliminary Frozen Section report(s). 07/06/2023 11:48 AM EST [facility] LYMPH NODE SPECIMEN / Unknown [...] EST Shelbie Cervantes MD PATHOLOGY/CYTOLOGY O RDERABLES [facility] [address] [place] [address] documented in this encounter Visit Diagnoses Diagnosis Penile cancer- Primary Malignant neoplasm of penis, part unspecified documented in this encounter Admitting Diagnoses Diagnosis Penile [...] Given 06/25/2023 8:41 AM EST 100 mg naloxone (Narcan) (0.4 mg/mL) injection 0.04 mg [...] Tue06/24/23 at 2018, Until Tue06/26/23 at 1809, Nausea, Vomiting, If multiple antiemetics are ordered, use ondansetron first. PO Preferred. If patient unable to take PO, may give IV if ordered. May repeat times one in 45 minutes if ineffective., Recovery (Recovery-Hospital Unit), Routine oxyCODONE (Roxicodone) tablet 10 mg 10 mg, Oral, EVERY 4 HOURS PRN, Starting on Tue06/24/23 at 2019, Until Tue06/26/23 at 1809, Pain, severe pain [...] 8:51 PM EST 1,000 mLs 100 mL/hr documented in this encounter Active and [...] Christina Irene RN)121 (Given - Provider: Juliann Fraser, KIRA) albumin (human) 5% 250 mL intravenous solution [...] mL Mini-Bag Plus (COMPLETED) 2 g, Intravenous, DISH UP PERSON TO O.R., 1 dose, On Tue06/24/23 at [...] Long RN) 0841 (Given - Provider: Juliann Fraser, KIRA)213 (Given - Provider: Daphne Evans RN) 0809 (Given - Provider: Juliann Fraser RN) sodium chloride 0.9 % (flush) (BD PosiFlush Normal Saline 0.9) flush 5 mL 5 mL, Intravenous, 2 TIMES DAILY, First dose on Tue06/24/23 at 2100, Until Discontinued, Recovery (Recovery-Hospital Unit), Routine 2019 (Given - Provider: Rachel Long RN) 0841 (Given - Provider: Juliann Fraser, KIRA)2130 (Given - Provider: Daphne Evans RN) 0810 (Not Given - Provider: Juliann Fraser [...] Long RN)2009 (Rate/Dose Change - Provider: Rachel Long RN)2019 (Rate/Dose Change - Provider: Rachel Long RN)2030 (Rate/Dose Change - Provider: Rachel Long RN)2044 (Paused - Provider: Rachel Long RN) sodium chloride 0.9% infusion (CANCELED) 1,000 mL, at 100 mL/hr, Intravenous, CONTINUOUS, Starting on Tue06/24/23 at 2045, Until 06/26/23 at 1114, Recovery (Recovery-Hospital Unit) 2050 (New Bag - Provider: Rachel Long RN) 004 (New Bag - Provider: Daphne Evans, KIRA)1004 (New Bag - Provider: Marie Curiel RN)111 (Stopped - Provider: Juliann Fraser RN) PRN Medication Order 06/24/2023 06/25/2023 06/26/2023 bisacodyL [...] 1207, Until 06/26/23 at 1809, Heartburn, Routine 1212 (Given - Provider: Juliann Fraser, KIRA)1948 (Given - Provider: Cristiane Montana RN) lidocaine (Xylocaine) 1% (10 mg/mL) injection 3 mg (COMPLETED) 3 mg (0.3 mL), Subcutaneous, ONCE PRN, 1 dose, Starting on Tue06/24/23 at 0852, Until Tue06/24/23 at 1943, for discomfort with PIV insertion, Day of Surgery (Day of Procedure), Routine 194 (Given - Provider: Shelbie Cervantes MD - Comment: Injected into surgical site.) lidocaine (Xylocaine) 1% (10 mg/mL) injection 3 mg 3 mg (0.3 mL), Subcutaneous, ONCE PRN, 1 dose, Starting on Tue06/24/23 at 2017, Until Tue06/26/23 at 180, for discomfort with PIV insertion, Recovery (Recovery-Hospital [...] Recovery, Routine 1958 (Given - Provider: Rachel Long, KIRA) naloxone (Narcan) (0.4 mg/mL) injection 0.2 mg 0.2 mg, Intravenous, EVERY 1 MIN PRN, 10 doses, Starting on Tue06/24/23 at 2017, Until Tue06/26/23 at 1809, Opioid Reversal, If [...] RN) 0030 (See Alternative - Provider: Daphne Evans RN) oxyCODONE (Roxicodone) tablet 10 mg(Linked Group 2) 10 mg, Oral, EVERY 4 HOURS PRN, Starting on Tue06/24/23 at 2018, Until 06/26/23 at 1809, Pain, severe pain (7-10), Routine 1010 (See Alternative - Provider: Vicky Moore RN)1451 (See Alternative - Provider: Juliann Fraser RN)1949 (See Alternative - Provider: Cristiane Montana RN) 1230 (See Alternative - Provider: Juliann Fraser RN) oxyCODONE (Roxicodone) tablet 5 mg(Linked Group 2) 5 mg, Oral, EVERY 4 HOURS PRN, Starting on Tue06/24/23 at 2019, Until 06/26/23 at 1809, Pain, moderate pain (4-6), Routine 1010 (Given - Provider: Vicky Moore RN)1451 (Given - Provider: Juliann Fraser RN)1949 (Given - Provider: Cristiane Montana RN) 1230 (Given - Provider: Juliann Fraser RN) oxyCODONE (Roxicodone) tablet 5 mg 5 mg, Oral, EVERY 4 HOURS PRN, Starting on Tue06/24/23 at 2018, Until 06/26/23 at 1809, Pain, Breakthrough pain [...] PRN, Starting on Tue06/26/23 at 0054, Until 06/26/23 at 1809, Cramping, [...] at 2018, Until 06/26/23 at 1809, Nausea, Vomiting, If [...] Routine documented in this encounter Care Teams Neurosurgical Nurse Practitioner Relationship Specialty Start Date End Date Shannan Arellano, VEHICLE SALES PROFESSIONAL [facility] [place] [address] PCP - General Family Medicine 02/03/23 documented as of this encounter
--- OUTSIDE RECORDS SUMMARY | 2024-06-04 17:31 | XMS_ITS | Encounter Summary ---
Author Organization [facility] Address [facility] [place] [address] Care Team Providers Care Valance Cutter Name Role Phone Shannan Arellano APRN Primary Care Provider [phone] Encounter Details Date Type Department Care Team (Latest Contact Info) Description 07/19/2023 Travel Social History Tobacco Use Types Packs/Day [...] PM EST TH Visit (TeleHealth) [place] [address] Zachary Gacria MD [facility] [place] [address] 06/11/2024 9:00 AM EST Office [place] [address] Caroline Espinoza OT 07/10/2024 8:00 AM EST Office [place] [address] Espinoza, Caroline E, OT 07/24/2024 10:00 AM EST Office [place] [address] Espinoza, Caroline E, OT 08/07/2024 10:00 AM EST Office [place] [address] Espinoza, Caroline E, OT 08/21/2024 10:00 AM EST Office [place] [address] Espinoza, Caroline E, OT documented as of this encounter Visit Diagnoses Not on filedocumented in this encounter Care Teams Valance Cutter Relationship Specialty Start Date End Date Shannan Arellano, HAND I CUTTER [address] [place] [address] PCP - General Family Medicine 02/03/23 documented as of this encounter
--- OUTSIDE RECORDS SUMMARY | 2024-06-04 17:31 | XMS_ITS | Encounter Summary ---
Author Organization [facility] Address [facility] [place] [address] Care Team Providers Care Mineral Ore Processing Labourer Name Role Phone Shannan Arellano APRN Primary Care Provider [phone] Encounter Details Date Type Department Care Team (Late Contact Info) Description 07/19/2023 Telephone [place] [id number] Celena Vivar Social History Tobacco Use Types Packs/Day Years [...] PM EST TH Visit (TeleHealth) [place] [address] Zachary Garcia MD [facility] [place] [address] 06/11/2024 9:00 AM EST Office Visit Occupational [place] [address] Espinoza, Caroline E, OT 07/10/2024 8:00 AM EST Office Visit Occup[place] [address] Espinoza, Caroline E, OT 07/24/2024 10:00 AM EST Office Visit Occup[place] [address] Espinoza, Caroline E, OT 08/07/2024 10:00 AM EST Office Visit Occup[place] [address] Espinoza, Caroline E, OT 08/21/2024 10:00 AM EST Office Visit Occup[place] [address] Espinoza, Caroline E, OT documented as of this encounter Visit Diagnoses Not on filedocumented in this encounter Care Teams Mineral Ore Processing Labourer Relationship Specialty Start Date End Date Shannan Arellano, [facility] [place] [address] PCP - General Family Medicine 02/03/23 documented as of this encounter
--- OUTSIDE RECORDS SUMMARY | 2024-06-04 17:32 | XMS_ITS | Encounter Summary ---
Author Organization [facility] Address [facility] [address] Care Team Providers Care Site Identification Specialist Name Role Phone Shannan Arellano DIGITAL CAMPAIGN SPECIALIST Primary Care Provider [phone] Reason for Referral * Diagnostic Test (Routine) - Closed Specialty Diagnoses / Procedures Referred By Marry kelsey Referred To Contact Radiology Diagnoses Penis cancer Procedures NM PET CT Skull Base to Mid-thigh Zachary Garcia MD [facility] [place] [address] Referral ID Status Reason Start Date Expiration Date V isits Requested Visits Authorized [id number] Closed Specialty Service Requested 06/04/2023 12/03/2024 1 1 Encounter Details Date Type Department Care Team (Late st Contact Info) Description 06/04/2023 [place] [address] Zachary Garcia MD [facility] [place] [address] Social History Tobacco Use Types Packs/Day Years Used Date Smoking Tobacco: Never Smokeless Tobacco: Never Alcohol Use Standard Drinks/Week Comments Yes 1 (1 standard drink = 0.6 oz pur e alcohol) Sex and Gender Information Value Date Recorded Sex Assigned at Not on file Gender Identity Not on file Sexual Orientation Not on file documented as of this encounter Miscellaneous Notes * Telephone Encounter - Zachary Garcia MD - 06/04/2023 11:45 AM EST Call to the patient Discussed with the patient the rationale for a PET scan we will arrange[facility] documented in this encounter Plan of Treatment Upcoming Encounters Date Type Department Care Team (Late st Contact Info) Description 06/07/2024 1:00 PM EST TH Visit (TeleHealth) [place] [address] Zachary Garcia MD [facility] [place] [address] 06/11/2024 9:00 AM EST Office Visit [place] [address] Espinoza, Caroline E, OT 07/10/2024 8:00 AM EST Office [place] [address] Espinoza, Caroline E, OT 07/24/2024 10:00 AM EST Office [place] [address] Espinoza, Caroline E, OT 08/07/2024 10:00 AM EST Office [place] [address] Espinoza, Caroline E, OT 08/21/2024 10:00 AM EST Office [place] [address] Espinoza, Caroline E, OT documented as of this encounter Results * NM PET CT Skull Base to Mid-thigh (06/21/2023 10:59 AM EST) Anatomical Region Laterality Modality Positron Emissio n Tomography (PET) Impressions 06/23/2023 2:49 PM EST 1. ??Mana metastases in the left inguinal, left distal external iliac, and left anterior obturator regions. 2. ??No distant sites of metastasis. 3. ??The primary malignancy in the distal urethra is not evident on this exam, likely due to its small size and location. Thank you for letting us participate in the care of this patient. ??If you are a health care provider and have any questions regarding this report, please contact the number below. ??For patients who have questions please contact the health lawn care specialist that requested your imaging first. ? Electronically signed by: Alfredo Everett MD, [facility] ([phone]), at 06/23/2023 2:49 PM Narrative 06/23/2023 2:49 PM EST EXAMINATION: NM PET CT STANDARD SKULL BASE TO MID-THIGH CLINICAL HISTORY: Cancer of the penis Hx of T2N2 penile cancer. ? metastatic disease. TECHNIQUE: Following IV injection of 58-qchqrf-0-deoxyglucose (FDG) a standard uptake of approximately 60 minutes, a noncontrast CT scan followed by a PET scan were acquired from the base of the skull to mid thighs. The noncontrast CT was used for anatomic localization and photon attenuation correction of the PET scan. Blood glucose level: 101 (mg/dL) FDG dose: 11.1 mCi COMPARISON: None FINDINGS: HEAD/NECK: Normal activity in all soft tissue regions of the neck and visualized lower head. No adenopathy. CHEST: Normal activity in all soft tissue regions. No adenopathy and no suspicious pulmonary nodule. Mild aortic calcifications. Small hiatal hernia. ABDOMEN/PELVIS: Cluster of several FDG avid lymph nodes in the left inguinal region (axial images 234-245), largest node measuring 15 x 14 mm (axial image 237). A 9 mm FDG avid lymph node in the left distal external iliac region (axial image 225), and a sub-5 mm FDG avid lymph node in the left anterior obturator region (axial image 223). The primary site of malignancy in the distal urethra is not evident on this exam. Diffuse hepatic steatosis. Simple right renal cyst. SKELETON/EXTREMITIES: Normal activity in all regions of the axial and visualized appendicular skeleton. Procedure Note Alfredo Everett MD - 06/23/2023 EXAMINATION: NM PET CT STANDARD SKULL BASE TO MID-THIGH CLINICAL HISTORY: Cancer of the penis Hx of T2N2 penile cancer. ? metastatic disease. TECHNIQUE: Following IV injection of 66-irbezv-7-deoxyglucose (FDG) astandard uptake of approximately 60 minutes, a noncontrast CT scan followed by aPET scan were acquired from the base of the skull to mid thighs. The noncontrast CTwas used for anatomic localization and photon attenuation correction of thePET scan. Blood glucose level: 101 (mg/dL) FDG dose: 11.1 mCi COMPARISON: None FINDINGS: HEAD/NECK: Normal activity in all soft tissue regions of the neck and visualizedlower head. No adenopathy. CHEST: Normal activity in all soft tissue regions. No adenopathy and no suspicious pulmonary nodule. Mild aorticcalcifications. Small hiatal hernia. ABDOMEN/PELVIS: Cluster of several FDG avid lymph nodes in the left inguinal region(axial images 234-245), largest node measuring 15 x 14 mm (axial image 237). A 9 mm FDG avid lymph node in the left distal external iliac region (axialimage 225), and a sub-5 mm FDG avid lymph node in the left anterior obturatorregion (axial image 223). The primary site of malignancy in the distal urethra is not evident onthis exam. Diffuse hepatic steatosis. Simple right renal cyst. SKELETON/EXTREMITIES: Normal activity in all regions of the axial and visualized appendicular skeleton. IMPRESSION 1. Mana metastases in the left inguinal, left distal external iliac, andleft anterior obturator regions. 2. No distant sites of metastasis. 3. The primary malignancy in the distal urethra is not evident on thisexam, likely due to its small size and location. Thank you for letting us participate in the care of this patient. If youare a health care provider and have any questions regarding this report,please contact the number below. For patients who have questions please contactthe health lawn care specialist that requested your imaging first. Electronically signed by: Alfredo Everett MD, [facility]([phone]), at 06/23/2023 2:49 PM Zachary Garcia MD IMG PET ORDERABLES documented in this encounter Visit Diagnoses Diagnosis Penis cancer- Primary Malignant neoplasm of penis, part unspecified Penis cancer Malignant neoplasm of penis, part unspecified documented in this encounter Care Teams Site Identification Specialist Relationship Specialty Start Date End Date Shannan Arellano, DIGITAL CAMPAIGN SPECIALIST [address] [place] [address] PCP - General Family Medicine 02/03/23 documented as of this encounter
--- OUTSIDE RECORDS SUMMARY | 2024-06-04 17:32 | XMS_ITS | Encounter Summary ---
[place] [address] Care Team Providers Care Mechanical Drafter Name Role Phone Shannan Arellano MANUFACTURING COORDINATOR Primary Care Provider [phone] Reason for Referral * Consultation (Routine) - Closed Specialty Diagnoses / Procedures Referred By Marry kelsey Referred To Contact Urology Diagnoses Malignant neoplasm of urethra Moisés Hardy MD [address] [place] [address] [facility] [place] [address] Referral ID Status Reason Start Date Expiration Date V isits Requested Visits Authorized [id number] Closed Consult, Test & Treat PCP Updated and/or Approved 02/03/2023 02/03/2024 6 6 Encounter Details Date Type Department Care Team (Latest Contact Info) Description 02/03/2023 Transcribe Orders eDH Incoming Referrals [phone] Moisés Hardy MD [address] [place] [address] Malignant neoplasm of urethra Social History Tobacco Use Types Packs/Day Years Used Date Smoking Tobacco: Never Assessed Sex and Gender Information Value Date Recorded Sex Assigned at Not on file Gender Identity Not on file Sexual Orientation Not on file documented as of this encounter Plan of Treatment Upcoming Encounters Date Type Department Care Team (Late st Contact Info) Description 06/07/2024 1:00 PM EST TH Visit (TeleHealth) [place] [address] Zachary Garcia MD [facility] [place] [address] 06/11/2024 9:00 AM EST Office [place] [address] Espinoza, Caroline E, OT 07/10/2024 8:00 AM EST Office [place] [address] Espinoza, Caroline E, OT 07/24/2024 10:00 AM EST Office [place] [address] Espinoza, Caroline E, OT 08/07/2024 10:00 AM EST Office [place] [address] Espinoza, Caroline E, OT 08/21/2024 10:00 AM EST Office [place] [address] Espinoza, Caroline E, OT Scheduled Referrals Name Type Priority Associated Diagnoses Orde r Schedule Referral to Urology Outpatient Referral Routine Malignant neoplasm of urethra Ordered: 02/03/2023 documented as of this encounter Visit Diagnoses Diagnosis Malignant neoplasm of urethra documented in this encounter Care Teams Mechanical Drafter Relationship Specialty Start Date End Date Shannan Arellano, MANUFACTURING COORDIN[place] [address] PCP - General Family Medicine 02/03/23 documented as of this encounter
--- OUTSIDE RECORDS SUMMARY | 2024-06-04 17:32 | XMS_ITS | Encounter Summary ---
Author Organization [facility] Address [facility] [place] [address] Care Team Providers Care Personnel Research Scientist Name Role Phone Shannan Arellano FASTENER TECHNOLOGIST Primary Care Provider [phone] Reason for Referral * Diagnostic Test (Routine) - Closed Specialty Diagnoses / Procedures Referred By Contac t Referred To Contact Radiology Diagnoses Penis cancer Procedures NM PET CT Skull Base to Mid-thigh Zachary Garcia MD [facility] [place] [address] Referral ID Status Reason Start Date Expiration Date V isits Requested Visits Authorized [id number] Closed Specialty Service Requested 06/04/2023 12/03/2024 1 1 Reason for Visit * Diagnostic Test (Routine) - Closed Specialty Diagnoses / Procedures Referred By Marry kelsey Referred To Contact Radiology Diagnoses Penis cancer Procedures NM PET CT Skull Base to Mid-thigh Zachary Garcia MD [facility] [place] [place] [address] Referral ID Status Reason Start Date Expiration Date V isits Requested Visits Authorized [id number] Closed Specialty Service Requested 06/04/2023 12/03/2024 1 1 Encounter Details Date Type Department Care Team (Latest Contact Info) Description 06/21/2023 9:24 AM EST - 06/21/2023 11:59 PM EST Hospital En[place] [address] Zachary Garcia MD [facility] [place] [address] Penis cancer Discharge Disposition: Home Social History [...] 06/28/2023 07/28/2023 documented as of this encounter Plan of Treatment Upcoming Encounters Date Type Department Care Team (Late st Contact Info) Description 06/07/2024 1:00 PM EST TH Visit (TeleHealth) [place] [address] Zachary Garcia MD [facility] [place] [address] 06/11/2024 9:00 AM EST Office Visit [place] [address] Caroline Espinoza OT 07/10/2024 8:00 AM EST Office Visit [place] [address] Caroline Espinoza OT 07/24/2024 10:00 AM EST Office [place] [address] Caroline Espinoza, OT 08/07/2024 10:00 AM EST Office [place] [address] Caroline Espinoza, OT 08/21/2024 10:00 AM EST Office [place] [address] Caroline Espinoza, OT documented as of this encounter Procedures Procedure Name Priority Date/Time Associated Diagnosis Comments NM PET CT SKULL BASE TO MID-THIGH ([facility]) Routine 06/21/2023 10:59 AM EST Penis cancer documented in this [...] who have questions please contact the health career services director that requested your imaging first. ? Electronically signed by: Alfredo Everett MD, [facility] ([phone]), at 06/23/2023 2:49 PM Narrative 06/23/2023 2:49 PM EST EXAMINATION: NM PET CT STANDARD SKULL BASE TO MID-THIGH CLINICAL HISTORY: Cancer of the penis Hx of T2N2 penile cancer. ? metastatic disease. TECHNIQUE: Following IV injection of 27-ivxbvn-6-deoxyglucose (FDG) a standard uptake of approximately 60 [...] metastatic disease. TECHNIQUE: Following IV injection of 07-aiiytg-7-deoxyglucose (FDG) astandard uptake of approximately 60 minutes, [...] patients who have questions please contactthe health career services director that requested your imaging first. Zachary Garcia [...] Intravenous, ONCE PRN, 1 dose, Starting on Tue06/21/23 at 0948, Until Tue06/21/23 at 0948, Per Protocol, Radiology Contrast, Routine Given 06/21/2023 9:48 AM EST 11.1 mCi Right Arm documented in this encounter Care Teams Personnel Research Scientist Relationship Specialty Start Date End Date Shannan Arellano, FASTENER TECHNOLOGIST [facility] [place] [address] PCP - General Family Medicine 02/03/23 documented as of this encounter
--- OUTSIDE RECORDS SUMMARY | 2024-06-04 17:32 | XMS_ITS | Clinical Summary ---
Author Organization [facility] Address [address] [place] [address] Care Team Providers Care Back Winder Name Role Phone Eusebio Montoya PA-C Primary Care Provider [phone] Social History Tobacco Use Types Packs/Day Years Used Date Smoking Tobacco: Never Assessed Interpersonal Safety Answer Date Record ed Physically Hurt Never 01/21/2020 Verbally Threaten Not on file 01/21/2020 Sex and Gender Information Value Date Recorded Sex Assigned at Not on file Legal Sex Male 15:38 EST Gender Identity Not on file Sexual Orientation Not on file Plan of Treatment Health Maintenance Due Date Last Done Comments Fall Risk Screening 2016 COVID-19 Vaccine ( season) 2024 RSV Immunization ( o r 60+ Years) (1 - 1-dose 75+ series) 2026 Hepatitis C Screen Completed 12/05/2020 Procedures Procedure Name Priority Date/Time Associated Diagnosis Comments HEPATITIS C AB W REFLEX TO HCV RNA BY PCR Routine 12/05/2020 8:50 EDT from Last 3 Months or Most Recently Relevant to Health Maintenance Results * HEPATITIS C AB W REFLEX TO HCV RNA BY PCR (12/05/2020 8:50 EDT) Hep C Antibody Negative Negative 12/08/2020 10:46 EDT [facility] Blood VENOUS BLOOD / Unknown 12/05/2020 8:50 EDT 12/05/2020 20:57 EDT us Provider Outr Resulting Lab CHEMISTRY & BLOOD GA S ORDERABLES Final Result [facility] [address] [place] [address] from Last 3 Months or Most Recently Relevant to Health Maintenance Insurance MEDICARE [employer] [place] Care Teams Back Winder Relationship Specialty Start Date End Date Eusebio [place] [address] PCP - General 04/23/19
--- OUTSIDE RECORDS SUMMARY | 2024-06-04 17:32 | XMS_ITS | Encounter Summary ---
Author Organization [facility] Address [address] [place] [address] Care Team Providers Care Middle School Coach Name Role Phone Eusebio Montoya PA-C Primary Care Provider [phone] Encounter Details Date Type Department Care Team (Late st Contact Info) Description 01/03/[address] [facility] Pathology & Laboratory Medicine - [facility] [address] [place] [address] Moisés Hardy MD [address] [place] [address] [place] [address] Unspecified urethral stricture, male, unspecified site Social History Tobacco Use Types Packs/Day Years [...] as of this encounter Plan of Treatment Not on file documented as of this encounter Procedures Procedure Name Priority Date/Time Associated Diagnosis Comments SURGICAL PATHOLOGY Today 01/03/2023 9: 13 EDT Unspecified urethral stricture, male, unspecified site documented in this encounter Results * SURGICAL PATHOLOGY (01/03/2023 9:13 EDT) Note to Patient The following pathology results have been interpreted by your pathologist and may be available to you before your health provider has had the opportunity to review them. Please allow time for your provider to receive these results and explore management options, if applicable. 01/07/2023 17:26 T [facility] Final Diagnosis A. 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 See comment. 01/07/2023 17:26 EDT [facility] Diagnosis Comment The biopsy shows sharp demarcation between a focus of basaloid penile intraepithelial neoplasia (PeIN) and adjacent mildly hyperplastic squamous epithelium. The surface squamous epithelium is focally disrupted in this area of PeIN, however, the underlying stroma shows the presence of highly atypical and miotically active cells in an altered vaguely myxoid stroma with a surrounding chronic inflammatory response. Immunohistochemical staining with p16 (a surrogate marker for oncogenic HPV) shows strong positive staining in the area of surface basaloid PeIN, and the cells in the subepithelial stroma are also strongly positive for p16 and p40 (a marker or squamous/urothelial differentiation). Although, artifactual displacement of carcinoma cells into the subepithelial stroma cannot be entirely excluded due to surface disruption of the epithelium, the stromal changes which suggest a desmoplastic stromal response together with the chorded growth pattern and degree of cytologic atypia favors subepithelial stromal invasion by carcinoma cells. Clinical correlation is necessary to understand whether this lesion is arising from the distal urethra or penile skin and how credit representative this biopsy is of the entire lesion/mass. Dr. Radha Gray, Dermatopathologist, has also reviewed this case in consultation together with the immunohistochemical stains and also favors invasive carcinoma with overlying PeIN 2/3. Power House Control Room Operator slides of this case including stains were reviewed at the [facility] intradepartmental consultation conference. Immunoperoxidase stains were performed on this case to further characterize the lesion. ANTIBODY(CLONE)(BLOCK ):RESULT P16 (E6H4TM, [place]) (block A1): strong block like staining in surface component, strong positive staining in subepithelial cells in stroma Keratin AE1-AE3 (AE1-AE3, [employer]) (block A1): positive in cells in stroma P40 (BC28, [employer]) (block A1): positive in cells in stroma Ki67 (MIB-1) (K2, Leica)(block A1): high proliferative activity in cells in stroma GATA3 (L50-823, [place]) (block A1): positive in epithelial cells in stroma CK7 (RN7, Leica) (block A1): negative in cells in stroma CK20 (Ks20.8, Leica) (block A1): negative in cells in stroma NKX3.1 (Rabbit Polyclonal, Biocare) (block A1): negative in cells in stroma SOX-10 (SP267, [employer]) (block A1): negative NKX3.1 (Rabbit Polyclonal, Bioc[employer]) (block A1): negative CEA Monoclonal (CEA31, [place]) (block A1): negative Mucin stain: negative CD34 (QBEnd/10, Leica) (block A1): negative in cells of interest in stroma CD68 (514H12, Leica) (block A1): negative in cells of interest in stroma NOTE: One or more of the reagents used in immunoperoxidase testing in this case may not have been cleared or approved by the U.S. Food and Drug Administration (FDA). The FDA has determined that such clearance or approval is not necessary. These tests are used for clinical purposes. They should not be regarded as investigational or for research. These reagents' performance characteristics have been determined by [facility] and/or by the referring laboratory. The positive and negative controls worked appropriately. If immunoperoxidase staining has been performed on alcohol fixed cytology specimens, which has not been fully validated, the assays should be interpreted with caution and correlated with clinical data. This laboratory is certified under the Clinical Laboratory Improvement Amendments of 1988 (CLIA-88) as qualified to perform high complexity clinical laboratory testing. 01/07/2023 17:26 [facility] Attestation There was significan t resident/fellow involvement in the diagnostic evaluation of this case. By the signature below, the attending physician certifies that they have personally conducted a gross and/or microscopic examination of the described specimens and rendered or confirmed the above diagnosis. 01/07/2023 17:26 [facility] at 1726 Clinical History Meatal stenosis 01/07/2023 17:26 [facility] Gross Description A. Received in formalin labelled with proper patient identification (initials N, J) and urethral meatal biopsy is a rubbery steele-cochran tissue, 0.3 x 0.2 x 0.2 cm entirely submitted in A1. LEONOR OCAMPO(ASCP) 01/04/2023 7:10 01/07/2023 17:26 EDT [facility] Resident/Fell ow: Honey Del Castillo MD 01/07/2023 17:26 EDT [facility] Performing Lab [facility] 01/07/2023 17:26 EDT [facility] Scanned Images 01/07/2023 17:26 EDT [facility] Tissue ENTIRE URETHRA / Unknown 01/03/2023 9:13 EDT 01/03/2023 18:09 EDT us Moisés Hardy MD PATHOLOGY ORDERABLES Birdie nunez Result [facility] [address] [place] [address] documented in this encounter Visit Diagnoses Diagnosis Unspecified urethral stricture, male, unspecified site documented in this encounter Care Teams Middle School Coach Relationship Specialty Start Date End Date Eusebio Montoya PA-C [address] [place] [address] PCP - General 04/23/19 documented as of this encounter
--- OUTSIDE RECORDS SUMMARY | 2024-06-04 17:32 | XMS_ITS | Encounter Summary ---
Author Organization [facility] [place] [address] Care Team Providers Care Satellite Manager Name Role Phone Shannan Arellano APRN Primary Care Provider [phone] Encounter Details Date Type Department Care Team (Late st Contact Info) Description 04/25/2023 [place] [address] Sarah Welch RN Social History Tobacco Use Types Packs/Day Years Used Date Smoking Tobacco: Never Smokeless Tobacco: Never Sex and Gender Information Value Date Recorded Sex Assigned at Not on file Gender Identity Not on file Sexual Orientation Not on file documented as of this encounter Miscellaneous Notes * Telephone Encounter - Sarah Welch RN - 04/25/2023 1:08 PM EST Patients Sylvie called, verified patients name and . Sylvie states patient plans to go to the lab at [facility] sometime this week for a urine culture to be done preop. This RN routed the orderto [facility]. documented in this encounter Plan of Treatment Upcoming Encounters Date Type Department Care Team (Late st Contact Info) Description 06/07/2024 1:00 PM EST TH Visit (TeleHealth) [place] [address] Zachary Garcia MD [facility] [place] [address] 06/11/2024 9:00 AM EST Office [place] [address] Espinoza, Caroline E, OT 07/10/2024 8:00 AM EST Office [place] [address] Espinoza, Caroline E, OT 07/24/2024 10:00 AM EST Office [place] [address] Espinoza, Caroline E, OT 08/07/2024 10:00 AM EST Office [place] [address] Espinoza, Caroline E, OT 08/21/2024 10:00 AM EST Office [place] [address] Espinoza, Caroline E, OT documented as of this encounter Visit Diagnoses Not on filedocumented in this encounter Care Teams Satellite Manager Relationship Specialty Start Date End Date Shannan Arellano, BALLET SOL[place]IST [place] [address] PCP - General Family Medicine 02/03/23 documented as of this encounter
--- OUTSIDE RECORDS SUMMARY | 2024-06-04 17:32 | XMS_ITS | Encounter Summary ---
Author Organization [facility] Address [facility] [place] [address] Care Team Providers Care Buffing Wheel Former Automatic Name Role Phone Shannan Arellano APRN Primary Care Provider [phone] Encounter Details Date Type Department Care Team (Late st Contact Info) Description 04/29/2023 [place] [address] Inna Anderson LNA Social History Tobacco Use Types Packs/Day Years Used Date Smoking Tobacco: Never Smokeless Tobacco: Never Sex and Gender Information Value Date Recorded Sex Assigned at Not on file Gender Identity Not on file Sexual Orientation Not on file documented as of this encounter Miscellaneous Notes * Telephone Encounter - Inna Anderson LNA - 04/29/2023 11:57 AM EST Attempted to reach patient about his most recent urine culture - per residents no treatment is needed at this time. documented in this encounter Plan of Treatment Upcoming Encounters Date Type Department Care Team (Late st Contact Info) Description 06/07/2024 1:00 PM EST TH Visit (TeleHealth) [place] [phone] Zachary Garcia MD [facility] [place] [address] 06/11/2024 9:00 AM EST Office Visit [place] [address] Caroline Espinoza OT 07/10/2024 8:00 AM EST Office [place] [address] Espinoza, Caroline E, OT 07/24/2024 10:00 AM EST Office [place] [address] Espinoza, Caroline E, OT 08/07/2024 10:00 AM EST Office Visit [place] [address] Espinoza, Caroline E, OT 08/21/2024 10:00 AM EST Office Visit [place] [address] Espinoza, Caroline E, OT documented as of this encounter Visit Diagnoses Not on filedocumented in this encounter Care Teams Buffing Wheel Former Automatic Relationship Specialty Start Date End Date Shannan Arellano, [place] [address] PCP - General Family Medicine 02/03/23 documented as of this encounter
--- OUTSIDE RECORDS SUMMARY | 2024-06-04 17:32 | XMS_ITS | Encounter Summary ---
Author Organization [facility] Address [facility] [address] Care Team Providers Care Maintenance Data Analyst Name Role Phone Shannan Arellano APRN Primary Care Provider [phone] Encounter Details Date Type Department Care Team (Late st Contact Info) Description 06/02/2023 Multidisciplinary Ca re Committee [place] [phone] Neo Wills MD [facility] [place] [address] Social History Tobacco Use Types Packs/Day Years Used Date Smoking Tobacco: Never Smokeless Tobacco: Never Alcohol Use Standard Drinks/Week Comments Yes 1 (1 standard drink = 0.6 oz pur e alcohol) Sex and Gender Information Value Date Recorded Sex Assigned at Not on file Gender Identity Not on file Sexual Orientation Not on file documented as of this encounter Progress Notes * Neo Wills MD - 06/02/2023 5:05 PM EST Presented at Tumor board 06/02/2023 Specialities Present Pathology Radiology Urologic Oncology Radiation Oncology Medical Oncology Brief history Eduardo Contreras is a 72 y.o. 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 Assuming this is normal, surgery would be the next step. Recommendation PET CT for makayla disease prior to surgery DISCLAIMER: The patient was discussed and the tumor board made recommendations but it is ultimatelyup to the treatment provider(s) and the patient to determine the patient???s care. documented in this encounter Plan of Treatment Upcoming Encounters Date Type Department Care Team (Late st Contact Info) Description 06/07/2024 1:00 PM EST TH Visit (TeleHealth) [place] [address] Zachary Garcia MD [facility] [place] [address] 06/11/2024 9:00 AM EST Office Visit Occup[place] [address] Espinoza, Caroline E, OT 07/10/2024 8:00 AM EST Office Visit [place] [address] Espinoza, Caroline E, OT 07/24/2024 10:00 AM EST Office Visit [place] [address] Espinoza, Caroline E, OT 08/07/2024 10:00 AM EST Office Visit [place] [address] Espinoza, Caroline E, OT 08/21/2024 10:00 AM EST Office Visit Occup[place] [address] Espinoza, Caroline E, OT documented as of this encounter Visit Diagnoses Not on filedocumented in this encounter Care Teams Maintenance Data Analyst Relationship Specialty Start Date End Date Shannan Arellano, [place] [address] PCP - General Family Medicine 02/03/23 documented as of this encounter
--- OUTSIDE RECORDS SUMMARY | 2024-06-04 17:32 | XMS_ITS | Encounter Summary ---
Author Organization [facility] Address [facility] [address] Care Team Providers Care Party Host/Hostess Name Role Phone Shannan Arellano APRN Primary Care Provider [phone] Encounter Details Date Type Department Care Team (Latest Contact Info) Description 03/15/2023 4:30 PM EDT - 03/15/2023 11:59 PM EDT Hospital [place] [address] Discharge Disposition: Home Social History Tobacco Use [...] PM EST TH Visit (TeleHealth) [place] [address] Zacahry Garcia MD [facility] [address] 06/11/2024 9:00 AM EST Office [place] [address] EspinozaCaroline de la torre, OT 07/10/2024 8:00 AM EST Office [place] [address] Caroline Espinoza, OT 07/24/2024 10:00 AM EST Office [place] [address] Caroline Espinoza OT 08/07/2024 10:00 AM EST Office [place] [address] Caroline Espinoza OT 08/21/2024 10:00 AM EST Office [place] [address] Caroline Espinoza OT documented as of this encounter Procedures Procedure Name Priority Date/Time Associated Diagnosis Comments SURGICAL PATHOLOGY REPORT Routine 03/15/2023 4:30 PM EDT documented in this encounter Results * Surgical Pathology Report (03/15/2023 4:30 PM EDT) Final Diagnosis [id number] ? Location: [facility]W The signing pathologist has (i) examined the relevant preparation(s) for the specimen(s) and (ii) rendered or confirmed the diagnosis(es). . ?Surgical Pathology DIAGNOSIS CONSULTATION CASE Outside slides labeled [id number]; collection date, 01/03/2023. Urethral meatus, biopsy: ?? Focus within subepithelial stroma suspicious for ?? invasive carcinoma (see Discussion). CR-0 Electronically signed by: ?Terrell BARRON, Ignacio Ennis Verified: ??03/18/2023 10:14 ??Pathologist Performed at: ??-[facility] [place], [place] [address] Produce Wrapper: Corbin Doll MD, FCAP, ??CLIA Certificate: [id number] DISCUSSION Within the dermis there are coalescing thin cords of atypical cells associated with a disrupted myxoid stroma. The stromal lesional cells have a P16+/P40+/CKAE1.3 +/ GATA3+/CK7-/CK20- /NKX3.1-/SOX10-/C EA-/CD34-/CD68- immunoprofile (extradepartmenta l studies) and a high proliferation index (KI67 study). The lesion is associated with a chronic inflammatory cell infiltrate and an overlying area of high-grade squamous dysplasia. The findings are suspicious for invasive carcinoma. Suggest clinical correlation and possible rebiopsy to further evaluate the lesion and confirm the suspicion of invasive carcinoma. Scanned slides: [id number] A1-1 SPECIMEN(S) SUBMITTED CONSULTATION CASE A - 15 slide(s) labeled [id number], collection date 01/03/2023. [id number] CARBON COPY: [facility] Surgical Pathology Department [facility], [facility], [address]nd Floor [address], [place] ??[address] CLINICAL INFORMATION Meatal stenosis SPECIMEN PROCESSING [facility] ([facility]) pathology slide(s) are reviewed. Refer to Diagnosis and Specimen Submitted for specific case information. For the full text of the [facility] report(s) please refer to the Chart Review Media tab in the electronic health record (eDH). 03/18/2023 10:14 AM EDT [facility] Consult Case 03/15/2023 4:30 PM EDT 03/15/2023 4:30 PM EDT Zachary Garcia MD PATHOLOGY/CYTOLOGY O RDERAKENY Performing Organization Address City/State/[facility] Co de Phone Number [facility] [place] [address] [place] [address] documented in this encounter Visit Diagnoses Not on filedocumented in this encounter Care Teams Party Host/Hostess Relationship Specialty Start Date End Date Shannan Arellano, CHEMICAL PROCESSING TECHNICIAN [place] [address] PCP - General Family Medicine 02/03/23 documented as of this encounter
--- OUTSIDE RECORDS SUMMARY | 2024-06-04 17:32 | XMS_ITS | Encounter Summary ---
Author Organization [facility] Address [facility] [address] Care Team Providers Care Coke Crusher Operator Name Role Phone Shannan Arellano APRN Primary Care Provider [phone] Encounter Details Date Type Department Care Team (Latest Contact Info) Description 06/21/2023 Travel Social History Tobacco Use Types Packs/Day [...] PM EST TH Visit (TeleHealth) Urology at [place] [phone] Zachary Garcia MD [facility] [place] [address] 06/11/2024 9:00 AM EST Office [place] [address] Espinoza, Caroline E, OT 07/10/2024 8:00 AM EST Office [place] [address] Espinoza, Caroline E, OT 07/24/2024 10:00 AM EST Office [place] [address] EspinozaTia de la torreyl E, OT 08/07/2024 10:00 AM EST Office [place] [address] Caroline Espinoza OT 08/21/2024 10:00 AM EST Office [place] [address] Caroline Espinoza OT documented as of this encounter Visit Diagnoses Not on filedocumented in this encounter Care Teams Coke Crusher Operator Relationship Specialty Start Date End Date Shannan Arellano, PAINTER AND GRADER [place] [address] PCP - General Family Medicine 02/03/23 documented as of this encounter
--- OUTSIDE RECORDS SUMMARY | 2024-06-04 17:32 | XMS_ITS | Encounter Summary ---
Author Organization Formerly [facility] [place] [address] Care Team Providers Care State Editor Name Role Phone Shannan Arellano APRN Primary Care Provider [phone] Encounter Details Date Type Department Care Team (Late st Contact Info) Description 04/14/2023 Orders [place] [id number] Zachary Garcia MD [facility] [place] [address] Urethral tumor Social History Tobacco Use Types Packs/Day Years [...] PM EST TH Visit (TeleHealth) [place] [address] Zachary Garcia MD [facility] [place] [address] 06/11/2024 9:00 AM EST Office Visit [place] [address] Caroline Espinoza, OT 07/10/2024 8:00 AM EST Office Visit [place] [address] Caroline Espinoza, OT 07/24/2024 10:00 AM EST Office Visit [place] [address] Caroline Espinoza OT 08/07/2024 10:00 AM EST Office Visit [place] [address] Caroline Espinoza, OT 08/21/2024 10:00 AM EST Office Visit [place] [address] Caroline Espinoza, OT documented as of this encounter Results * XR Pre MRI Orbits (Generic) (04/22/2023 2:47 PM EDT) Anatomical Region Laterality Modality Head N/A Digital Radiogra phy Impressions 04/22/2023 3:34 PM EDT A metallic density fragment projects ventral to the left maxillary sinus. No orbital metal seen. The skull base is intact. Thank you for letting us participate in the care of this patient. ??If you are a health care provider and have any questions regarding this report, please contact the number below. ??For patients who have questions please contact the health director critical care that requested your imaging first. ? Narrative 04/22/2023 3:34 PM EDT EXAMINATION: XR PRE MRI ORBITS (GENERIC) CLINICAL HISTORY: h/o metal fragments in eyes, needs MRI TECHNIQUE: 3 views of the skull COMPARISON: None FINDINGS: See impression. Procedure Note Moe Arauz MD - 04/22/2023 EXAMINATION: XR PRE MRI ORBITS (GENERIC) CLINICAL HISTORY: h/o metal fragments in eyes, needs MRI TECHNIQUE: 3 views of the skull COMPARISON: None FINDINGS: See impression. IMPRESSION A metallic density fragment projects ventral to the left maxillary sinus.No orbital metal seen. The skull base is intact. Thank you for letting us participate in the care of this patient. If youare a health care provider and have any questions regarding this report,please contact the number below. For patients who have questions please contactthe health director critical care that requested your imaging first. Zachary Garcia MD IMG DX ORDERABLES documented in this encounter Visit Diagnoses Diagnosis Urethral tumor Neoplasm of unspecified nature of other genitourinary organs Urethral tumor Neoplasm of unspecified nature of other genitourinary organs documented in this encounter Care Teams State Editor Relationship Specialty Start Date End Date Shannan Arellano, CAS[place] [address] [place] [address] PCP - General Family Medicine 02/03/23 documented as of this encounter
--- OUTSIDE RECORDS SUMMARY | 2024-06-04 17:32 | XMS_ITS | Encounter Summary ---
Author Organization [facility] Address [facility] [address] Care Team Providers Care Garnisher Name Role Phone Shannan Arellano CONTACT CENTRE SUPERVISOR Primary Care Provider [phone] Reason for Visit * Diagnostic Test (Routine) - Closed Specialty Diagnoses / Procedures Referred By Marry kelsey Referred To Contact Radiology Diagnoses Penis cancer Procedures NM PET CT Skull Base to Mid-thigh Zachayr Garcia MD [facility] [place] [address] Referral ID Status Reason Start Date Expiration Date V isits Requested Visits Authorized [id number] Closed Specialty Service Requested 06/04/2023 12/03/2024 1 1 Encounter Details Date Type Department Care Team (Latest Contact Info) Description 06/21/2023 9:24 AM EST - 06/21/2023 11:59 PM [facility] Hospital Encounter [place] [address] Zachary Garcia MD [facility] [place] [address] Discharge Disposition: Home Social History Tobacco Use [...] PM EST TH Visit (TeleHealth) [place] [address] Zachary Garcia MD [facility] [place] [address] 06/11/2024 9:00 AM EST Office Visit [place] [address] Espinoza Caroline E, OT 07/10/2024 8:00 AM EST Office Visit [place] [address] Espinoza Caroline E, OT 07/24/2024 10:00 AM EST Office Visit [place] [address] Espinoza Caroline E, OT 08/07/2024 10:00 AM EST Office Visit [place] [address] Espinoza Caroline E, OT 08/21/2024 10:00 AM EST Office Visit [place] [address] Espinoza, Caroline E, OT documented as of this encounter Procedures Procedure Name Priority Date/Time Associated Diagnosis Comments NM PET CT SKULL BASE TO MID-THIGH ([facility]) Routine 06/21/2023 10:59 AM EST Penis cancer POCT GLUCOSE Routine 06/21/2023 9:35 AM EST documented in this encounter Results * POCT Glucose (06/21/2023 9:35 AM EST) Glucose, POC 101 65 - 199 mg/dL [facility] Comment: Supplemental ranges: <140 mg/dL before meals <180 mg/dL all other times of the day Blood 06/21/2023 9:35 AM EST 06/21/2023 9:35 AM EST Zachary Garcia MD POINT OF CARE TEST O RDERABLES Performing Organization Address City/State/[facility] Co de Phone Number [facility] [place] [phone] documented in this encounter Visit Diagnoses Not on filedocumented in this encounter Care Teams Garnisher Relationship Specialty Start Date End Date Shannan Arellano, CONTACT CENTRE SUPERVISOR [place] [address] PCP - General Family Medicine 02/03/23 documented as of this encounter
--- OUTSIDE RECORDS SUMMARY | 2024-06-04 17:32 | XMS_ITS | Encounter Summary ---
Author Organization [facility] Address [address] [place] [address] Care Team Providers Care Joint Filler Name Role Phone Eusebio Montoya PA-C Primary Care Provider [phone] Encounter Details Date Type Department Care Team (Late st Contact Info) Description 04/23/2019 14:38 EST Hospital Encounter [address] [address] Unknown, Provider, Social History Tobacco Use Types Packs/Day Years [...] on file documented as of this encounter Visit Diagnoses Not on filedocumented in this encounter Care Teams Joint Filler Relationship Specialty Start Date End Date Eusebio Montoya [place] [address] PCP - General 04/23/19 documented as of this encounter
--- OUTSIDE RECORDS SUMMARY | 2024-06-04 17:32 | XMS_ITS | Encounter Summary ---
Author Organization [facility] Address [facility] [place] [address] Care Team Providers Care Milieu Coordinator Name Role Phone Shannan Arellano APRN Primary Care Provider [phone] Encounter Details Date Type Department Care Team (Latest Contact Info) Description 04/22/2023 Travel Social History Tobacco Use Types Packs/Day [...] PM EST TH Visit (TeleHealth) [place] [address] Zachary Garcia MD [facility] [place] [address] 06/11/2024 9:00 AM EST Office [place] [address] Caroline Espinoza, OT 07/10/2024 8:00 AM EST Office [place] [address] Caroline Espinoza, OT 07/24/2024 10:00 AM EST Office [place] [address] EspinozaCaroline de la torre, OT 08/07/2024 10:00 AM EST Office [place] [address] Caroline Espinoza OT 08/21/2024 10:00 AM EST Office [place] [address] Caroline Espinoza OT documented as of this encounter Visit Diagnoses Not on filedocumented in this encounter Care Teams Milieu Coordinator Relationship Specialty Start Date End Date Shannan Arellano, HYDROLOGIC MODELER [place] [address] [place] [address] PCP - General Family Medicine 02/03/23 documented as of this encounter
--- OUTSIDE RECORDS SUMMARY | 2024-06-04 17:32 | XMS_ITS | Encounter Summary ---
[place] [address] Care Team Providers Care Tnt Line Supervisor Name Role Phone Shannan Arellano GAYLE Primary Care Provider [phone] Reason for Referral * Diagnostic Test (Routine) - Closed Specialty Diagnoses / Procedures Referred By Marry t Referred To Contact Radiology Diagnoses Urethral tumor Procedures MRI Pelvis Soft Tissue (GI COMMERCIAL ANALYST) wwo Zachary Becker MD [facility] [place] [address] [place] [address] Referral ID Status Reason Start Date Expiration Date V isits Requested Visits Authorized [id number] Closed Specialty Service Requested 03/18/2023 09/15/2024 1 1 Reason for Visit * Consultation (Routine) - Closed Specialty Diagnoses / Procedures Referred By Marry t Referred To Contact Urology Diagnoses Malignant neoplasm of urethra Moisés Hardy MD [address] [place] [address] [place] [address] Referral ID Status Reason Start Date Expiration Date V isits Requested Visits Authorized [id number] Closed Consult, Test & Treat PCP Updated and/or Approved 02/03/2023 02/03/2024 6 6 Encounter Details Date Type Department Care Team (Latest Contact Info) Description 03/18/2023 8:40 AM EDT [place] [address] Zachary Garcia MD [facility] [place] [address] Urethral tumor (Primary Dx); Other symptoms and signs involving the genitourinary system Social History Tobacco Use Types Packs/Day Years Used Date Smoking Tobacco: Never Smokeless Tobacco: Never Tobacco Cessation:Counseling Given: Not Answered Sex and Gender Information Value Date Recorded Sex Assigned at Not on file Gender Identity Not on file Sexual Orientation Not on file documented as of this encounter Last Filed Vital Signs Vital Sign Reading Time Taken Comments Blood Pressure 121/75 03/18/2023 8:29 AM EDT Pulse 44 03/18/2023 8:29 AM EDT Temperature - - Respiratory Rate - - Oxygen Saturation - - Inhaled Oxygen Concentration - - Weight - - Height - - Body Mass Index - - documented in this encounter Progress Notes * Zachary Garcia MD - 03/18/2023 8:40 AM EDT Images from the original note were not included. Patient Name: Eduardo Contreras Date of Service: 03/18/2023 Primary Care Provider: Shannan Arellano APRN Reason for Visit: Eduardo Contreras is a 72 y.o. male who is referred Dr. 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 ~ 1 year ago He started to void spraying and noticed a lump about 3 months 01/03/2023 Cyto/urethral dilitation/Bx Final Diagnosis A. 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 See comment. Currently the patient is voided OK. Stream strong. has no irritative symptoms with minimal frequencyand nocturia x 1. The urinary stream is OK and the bladder is emptied completely. There is no hematuria.' He still has a lump. Thinks it is smaller. Erectile function is normal (occasional nit OK for intercourse) Appetite is good weight is stable. There is no bone pain. Past Medical History: None Past Surgical History: None Medications: Reviewed Allergies: Reviewed Family History: There is no family history of Penile issues. Father ASCVD. 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 The patient has been for 30 years with 6 children (between them) . The patient drinks rarely Tobacco: Never. Systems review: He can walk a mile. HEENT: Denies problems with vision, hearing, runny nose, epistaxis, sore throat, hoarseness Cardiovascular: Denies Chest pain, palpitations, shortness of breath, ankle swelling, claudication.Morning phlegm Respiratory: Denies cough, phlegm, hemoptysis,wheeze, Gastrointestinal: Denies nausea, difficulty swallowing, vomiting, hematemesis, constipation, diarrhea, blood per rectum Neurological: Denies dizziness, double vision, headache, weakness of one side of the body or the other,sudden loss of vision in one eye, Bones and muscles: Denies bone pain, radiating pain, muscle weakness or sore ness. All other systems negative. Physical Exam: Vital Signs are reviewed. The patient appears healthy and in no distress. The abdomen is benign. There are no masses or organomegaly. Bilateral groins normal External genitalia is normal with bilaterally descended testis. ~ 3cm Left spermatocoele/epididymalcyst. ~ 1cm firm (peasized nodule distal urethra/glans). Remained of urethra normal. Minor redness at meatus. Uncircumcised. 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 #2: Minimal comorbidity Plan: Path for review U/A Cytology MR Penis Cystoscopy/Biopsy I discussed the findings and the suspicion of a penile/urethral cancer. We will arrange for a MR to stage prior to manipulation and a cystoscopy and biopsy documented in this encounter Plan of Treatment Upcoming Encounters Date Type Department Care Team (Late st Contact Info) Description 06/07/2024 1:00 PM EST TH Visit (TeleHealth) Urology at [facility] [place] [address] Zachary Garcia MD [facility] [place] [address] 06/11/2024 9:00 AM EST Office [place] [address] Espinoza Caroline E, OT 07/10/2024 8:00 AM EST Office [place] [address] Espinoza, Caroline E, OT 07/24/2024 10:00 AM EST Office [place] [address] Espinoza, Caroline E, OT 08/07/2024 10:00 AM EST Office [place] [address] Espinoza, Caroline E, OT 08/21/2024 10:00 AM EST Office [place] [address] Espinoza, Caroline E, OT documented as of this encounter Procedures Procedure Name Priority Date/Time Associated Diagnosis Comments CYTOPATHOLOGY NON-GYNECOLOGICAL Routine 03/21/2023 12:01 PM EDT Urethral tumor NON-COMMERCIAL ANALYST FINAL REPORT Routine 03/18/2023 10:00 AM EDT URINE CULTURE Routine 03/18/2023 10:00 AM EDT documented in this encounter Results * MRI Pelvis Soft Tissue (GI COMMERCIAL ANALYST) wwo Contrast (04/22/2023 5:14 PM EDT) Anatomical Region Laterality Modality Pelvis Magnetic Resonan ce Impressions 04/27/2023 10:18 AM EST 1. ??Mass of the distal corpus spongiosum, 1.2 cm. No invasion of the corpora cavernosa or glans penis, within the limitations of image quality. 2. ??Suspicious left inguinal lymph nodes, largest 1.4 cm. Thank you for letting us participate in the care of this patient. ??If you are a health care provider and have any questions regarding this report, please contact the number below. ??For patients who have questions please contact the health manager medicare that requested your imaging first. ? Electronically signed by: Joni Velasquez MD, [facility] ([phone]), at 04/27/2023 10:18 AM Narrative 04/27/2023 10:18 AM EST EXAMINATION: MRI PELVIS SOFT TISSUE (GI COMMERCIAL ANALYST) WWO CONTRAST CLINICAL HISTORY: Distal Urethral cancer (just posterior to glans). Assess invasion of corpora spongiosum and tumor extent. Assess inguinal nodes. TECHNIQUE: MRI of the pelvis prior to and following the intravenous administration of 15 mL Dotarem. COMPARISON: None FINDINGS: Several sequences are degraded by motion artifact. Hyperenhancing nodule in the distal penis located in the corpus spongiosum measures 1.2 cm on series 11 image 72. This is located proximal to the glans. There does not appear to be invasion of the corpora cavernosa on series 9 images 10-13. No dilatation of the penile urethra. Enlarged left inguinal nodes measure 1.4 cm and 1.3 cm short axis. The larger (more superior) has irregular margins and is highly suspicious for metastatic disease. No other enlarged pelvic lymph nodes. There are small bilateral scrotal hydroceles. Metallic susceptibility artifact in the distal inguinal canals likely reflects vasectomy clips. There are bilateral varicoceles. The urinary bladder is unremarkable. Unremarkable prostate on these nondedicated images. No suspicious pelvic marrow lesions. No obstructive or inflammatory bowel process. There are small bilateral inguinal hernias containing fat. Procedure Note Joni Velasquez MD - 04/27/2023 EXAMINATION: MRI PELVIS SOFT TISSUE (GI COMMERCIAL ANALYST) WWO CONTRAST CLINICAL HISTORY: Distal Urethral cancer (just posterior to glans).Assess invasion of corpora spongiosum and tumor extent. Assess inguinal nodes. TECHNIQUE: MRI of the pelvis prior to and following the intravenous administration of15 mL Dotarem. COMPARISON: None FINDINGS: Several sequences are degraded by motion artifact. Hyperenhancing nodulein the distal penis located in the corpus spongiosum measures 1.2 cm on series 11image 72. This is located proximal to the glans. There does not appear to beinvasion of the corpora cavernosa on series 9 images 10-13. No dilatation of thepenile urethra. Enlarged left inguinal nodes measure 1.4 cm and 1.3 cm short axis. Thelarger (more superior) has irregular margins and is highly suspicious formetastatic disease. No other enlarged pelvic lymph nodes. There are small bilateral scrotal hydroceles. Metallic susceptibilityartifact in the distal inguinal canals likely reflects vasectomy clips. There are bilateral varicoceles. The urinary bladder is unremarkable. Unremarkable prostate on thesenondedicated images. No suspicious pelvic marrow lesions. No obstructive orinflammatory bowel process. There are small bilateral inguinal hernias containing fat. IMPRESSION 1. Mass of the distal corpus spongiosum, 1.2 cm. No invasion of thecorpora cavernosa or glans penis, within the limitations of image quality. 2. Suspicious left inguinal lymph nodes, largest 1.4 cm. Thank you for letting us participate in the care of this patient. If youare a health care provider and have any questions regarding this report,please contact the number below. For patients who have questions please contactthe health manager medicare that requested your imaging first. Electronically signed by: Joni Velasquez MD, [facility]([phone]), at 04/27/2023 10:18 AM Zachary Garcia MD G MRI ORDERABLES * Cytopathology Non-Gynecological (03/21/2023 12:01 PM EDT) AP Specimen 03/21/2023 12:0 1 PM EDT 03/21/2023 12:01 PM EDT Narrative [facility] - 03/21/2023 12:01 PM EDT Specimen requisition ordered. ??Separate Pathology report to follow Zachary Garcia MD PATHOLOGY/CYTOLOGY O RDERABLES [facility] [place] [address] * Non-Wet Cotton Feeder Final Report (03/18/2023 10:00 AM EDT) Diagnosis Discussion [id number] ? Location: The signing pathologist has (i) examined the relevant preparation(s) for the specimen(s) and (ii) rendered or confirmed the diagnosis(es). . ? Non-Wet Cotton Feeder Final DIAGNOSIS Suspicious for High Grade Urothelial Carcinoma See discussion. Electronically signed by: ?Diana BARRON, Jovanny Pearce Verified: ??03/21/2023 15:59 ??Pathologist Performed at: ??-[facility] Dept. of Pathology, [place] [address] 3D Animator: Corbin Doll MD, AP, ??CLIA Certificate: [id number] DISCUSSION Urine, voided: A few atypical urothelial cells with increased nuclear-cytoplas florencia ratios and nuclear hyperchromasia are present, suspicious for high grade urothelial carcinoma. Reference: Leighann EM, Xander MORALESI, Susanna DL. The Sindy System for Reporting Urinary Cytology, 2nd edition. [place]: Sanchez; 2021. CLINICAL INFORMATION Specimen Source : Urine, voided Pertinent Clinical Data and Significant Therapy: Hematuria Clinical Impression : Urethral tumor Pertinent Radiologic Findings ??: (not provided) Gross Description: Received fresh, approximately 70 mL total volume of clear, yellow fluid, with light flecks. Total Preparation: Liquid-Based Prep 1. 03/21/2023 3:59 PM EDT [facility] URINE SPECIMEN OBTAINED BY CLEAN CATCH PROCEDURE / Unknown 03/18/2023 10:00 AM EDT 03/18/2023 10:00 AM EDT Zachary Garcia MD PATHOLOGY/CYTOLOGY O [facility] [place] [address] [facility] [address] * Urine culture (03/18/2023 10:00 AM EDT) Urine Culture No growth (Less than 1,000 cfu/ml). [facility] Clean Catch Urine 03/18/2023 10:00 AM EDT 03/18/2023 11:51 AM EDT Narrative Resulting Agency Comment Spec In Lab Zachary Garcia MD MICROBIOLOGY - GENER AL ORDERABLES [facility] [place] [address] documented in this encounter Visit Diagnoses Diagnosis Urethral tumor- Primary Neoplasm of unspecified nature of other genitourinary organs Other symptoms and signs involving the genitourinary system Urethral tumor Neoplasm of unspecified nature of other genitourinary organs documented in this encounter Care Teams Tnt Line Supervisor Relationship Specialty Start Date End Date Shannan Arellano, [place] [address] PCP - General Family Medicine 02/03/23 documented as of this encounter
--- OUTSIDE RECORDS SUMMARY | 2024-06-04 17:32 | XMS_ITS | Encounter Summary ---
Author Organization [facility] Address [facility] [place] [address] Care Team Providers Care Aqua Ammonia Operator Name Role Phone Shannan Arellano APRN Primary Care Provider [phone] Encounter Details Date Type Department Care Team (Late st Contact Info) Description 05/09/2023 7:30 AM EST - 05/09/2023 8:55 AM EST Surgery [facility] [place] [phone] Shelbie Cervantes MD [facility] [place] [address] CYSTO, URETHROSCOPY WITH BIOPSY (WRVU 2.59) Social History Tobacco Use Types Packs/Day Years [...] Sign Reading Time Taken Comments Blood Pressure 123/74 05/09/2023 8:54 AM EST Pulse 41 05/09/2023 8:54 AM EST Temperature 36.1 ??C (97 ??F) 05/09/2023 8:40 AM EST Respiratory Rate 14 05/09/2023 8:54 AM EST Oxygen Saturation 98% 05/09/2023 8:54 AM EST Inhaled Oxygen Concentration - - Weight 74.4 kg (164 lb) 05/09/2023 6:32 AM EST Height 172.7 cm (5' 8) 05/09/2023 6:32 AM EST Body Mass Index 24.94 05/09/2023 6:32 AM EST documented in this encounter Discharge Instructions * Discharge Instructions* Celestina Chavez RN - 05/09/2023 8:49 AM EST General Anesthesia Discharge Instructions Go home and rest. You may be sleepy for several hours. Take it easy as sudden position changes may cause nausea and/or dizziness. Use caution on stairs. Do not smoke if you are alone. Follow a light to regular diet as tolerated today. If nausea occurs, start with clear liquids, and progress slowly to a regular diet. Do not drive, operate machinery, drink alcoholic beverages or make any legal decisions after havinggeneral anesthesia. The medications given change your reaction time and alter your judgement. IV site -- slight redness is normal, you can use warm compresses. If tenderness and redness increases or foul drainage occurs, please contact your M.D. Patients who have had endotracheal tubes/LMA (tubes used by the anesthesia staff to ensure a safe airway during your operation) may have a sore throat. This is normal and cold liquids or soothing lozenges will help ease this discomfort. Narcotic pain medications can cause constipation, please ask the surgeons office what they recommend for prevention of this. Some non-pharmaceutical means of constipation prevention include increasing intake of fluids, eating more fruits and vegetables as well as fruit juices. If you are uncomfortable and/or unable to urinate within 8 hours of discharge and it is before 5 pm, call your physician. If it is after 5pm go to the closest emergency room or call the hospital hoop driving machine operator at [phone] and ask for physician correctional security officer covering for your physician. Questions or problems after 5pm or on a weekend: Call the [facility] hoop driving machine operator at and ask for the physician correctional security officer covering for your doctor. At 0730 am you received 975 mg of acetaminophen- Your next dose should not be taken before 8 hours have passed or as advised by your provider. Next dose not before- 330 pm You should not take more than a total of 3000 mg of acetaminophen in a 24 hour period. * Patient Instructions* Neo Wills MD - 05/09/2023 7:39 AM EST UROLOGY DISCHARGE INSTRUCTIONS Call your doctor for: fevers greater than 100.5 severe nausea or vomiting increasing pain not controlled by pain medications increasing redness or drainage from incisions decreased urine output, inability to urinate, or if your catheter is no longer draining The number for questions is [phone] before 5 PM weekdays and [phone] after 5 PM and weekends. Activity level: No heavy lifting greater than 10 pounds (about equal to a full gallon jug) for the next 4 weeks or until cleared to do so at follow-up appointment. Otherwise activity as tolerated by comfort level. Diet: You may resume your regular diet as tolerated. Driving: No driving if you are still sore from surgery as it may limit your ability to react quickly if necessary. Shower/Bath: No restrictions You may seem some bleeding from the penis. If this becomes heavy/worse with passage of clots pleaselet us know. Staying hydrated will help as well Follow up Appointments: Follow-up appointment will be scheduled with Dr. Cervantes in 2 weeks. Appointment will be mailed to you. Please call [phone] (clinic number for appointments) to confirm date and time of your appointment if you do not receive it. documented in this encounter Progress Notes * Celestina Chavez RN - 05/09/2023 10:05 AM EST Discharge instructions and medications reviewed with patient and escort. All questions answered andwritten copy sent home with patient. Report given to KIRA Dobbins to complete discharge. * Shilpi Fisher RN - 05/09/2023 9:54 AM EST Patient ambulated to car for discharge accompanied by [facility] staff member. documented in this encounter H&P Notes * Neo Wills MD - 05/09/2023 7:36 AM EST Urology History and Physical: Eduardo Contreras is a 72 y.o. male with a history of meatal stenosis and penile lump s/p dilation andbiopsy in 12/2022 with pathology showing PeIN suspicious for underlying carcinoma. MR notable for 1.2cm mass of corpus spongiosum, L inguinal 1.4cm node Cytology: suspicious for HGUCC He presents today for cystoscopy and biopsy There have been no changes to his history. He denies fevers/chills, chest pain, SOB, and n/v. Anticoagulation: none Urine cx: 04/26/23 <10k GNR PMH: History reviewed. No pertinent past medical history. PSH: History reviewed. No pertinent surgical history. Allergies: No Known Allergies No data found. Physical Exam: Gen: NAD CV: S1 S2 Pulm: CTAB, respiratory effort normal Labs: No results for input(s): WBC, HGB, HCT, PLATELET in the last 7068 hours. No results for input(s): NA, K, CL, CO2, BUN, CREATININE in the last 7068 hours. Micro: Lab Results Component Value Date URINECULTURE No growth (Less than 1,000 cfu/ml). 03/18/2023 Imaging: Relevant imaging reviewed A/P: 72 y.o. male who presents today for above procedures. All risks, benefits, and alternatives have been explained, and questions answered. Proceed with scheduled procedure. 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 Unremarkable cystoscopy. Forceps/Leovn cut needle biopsies of mass. Left inguinal FNA x2 Plan: - 2 week FUV, requested Anesthesia: General Estimated Blood Loss: 5 mL Specimens removed during surgery: Order Name Source Comment Collection Info Order Time SPECIMEN TO PATHOLOGY Urethral cancer TRANSURETHRAL PENILE BIOPSY biopsy No 05/09/2023 8:33 AM Time specimen removed from patient: 8:23 AM Number of tissue samples (in container) 1 Biospecimen to store? No SPECIMEN TO PATHOLOGY Urethral cancer TRUCUT PENILE BIOPSY biopsy No 05/09/2023 8:33 AM Time specimen removed from patient: 8:24 AM Number of tissue samples (in container) 1 Biospecimen to store? No SPECIMEN TO PATHOLOGY Urethral cancer FINE NEEDLE ASPIRATION LEFT GROIN LYMPH NODES biopsy No 05/09/2023 8:33 AM Time specimen removed from patient: 8:33 AM Number of tissue samples (in container) 1 Biospecimen to store? No Drains: none Surgical Closure: Primary Closure - skin incision is completely closed without any wires, alfredo, drains or other devices Disposition: awakened from anesthesia, extubated and taken to the recovery room in a stable condition, having suffered no apparent untoward event. Condition: doing well without problems (Please see the Surgical Encounter Summary for any Implant and Specimen details pertinent to this patient.) HPI/Surgical Indications: Eduardo Contreras is a 72 y.o. male with a history of meatal stenosis and penile lump s/p dilation andbiopsy in 12/2022 with pathology showing PeIN suspicious for underlying carcinoma. MR notable for 1.2cm mass of corpus spongiosum, L inguinal 1.4cm node Cytology: suspicious for HGUCC He presents today for cystoscopy and biopsy There have been no changes to his history. He denies fevers/chills, chest pain, SOB, and n/v. Anticoagulation: none Urine cx: 04/26/23 <10k GNR Procedure Description: The patient was identified in the pre-operative holding area. Consent was verified. The patient wastaken to the operating room and placed supine on the operating table. General anesthesia was induced. The patient was then moved to the lithotomy position and prepped and draped in the usual sterile fashion. A timeout was performed involving all members of the OR team confirming the patient's identity and planned procedure. Preoperative antibiotics were administered. A left inguinal node was able to be palpated prior to cystoscopic portion of the case. A 22 Fr rigid cystoscope was attempted to be inserted into the meatus but would be not be accommodated. A pediatric cystoscope was then assembled and inserted without issue into the urethra; urethroscopy was notable for suspicious growth largely on the dorsal side of the urethra that was distal and located largely within the glans portion of the penis, approximately 0.5cm in largest dimension. The rest of theurethra was unremarkable. Then, the pediatric cystoscope was removed and the 22Fr rigid was attempted to be inserted. There was resistance so Mckayla sounds from 16 to 26Fr were used to calibrate the distal urethra. A 360 degree visual inspection of the bladder with 70-degree lens revealed a grossly normal bladder without tumors, foreign bodies, or stones. The ureteral orifices were noted to bein orthotopic position. Bladder urine with no debris. Using the pediatric scope, biopsy forceps were then used to sample some of the area of concern. This was placed in formalin and sent off for analysis. Given the difficulty of endoscopic biopsy obtainment, a Trucut needle was used to take 3 additional samples using careful palpation of the glans. These were also sent off as a separate sample. Compression gauze was then placed over the penis and weturned our attention to the left inguinal node. Using a 10cc syringe and an 18Ga needle, FNA was performed of the palpable left inguinal node twice. These aspiration samples were then washed out of the syringe into a cup of formalin and sent off for analysis. Compression of the groin was then held and the glans compression dressing was removed. The patient was then awoken without issue and taken to the recovery room. Dr. Cervantes, the attending surgeon, was present for the entire procedure. Associated attestation - Shelbie Cervantes MD - 05/09/2023 12:21 PM EST Attestation: Case Date: 05/09/2023 I performed the procedure with the assistance of the resident. I performed or directly supervised all critical aspects. Notes: Urethroscopy notable for distal urethral mass, anteriorly, not clearly a tumor. Essentially locatedwithin the glans with no proximal extension past the coronal sulcus on palpation, ~0.5cm. Unremarkable cystoscopy. Forceps/Levon cut needle biopsies of mass. 1cm Left inguinal node mobile, medical to Femoral artery. FNA x2 SHELBIE CERVANTES MD 05/09/2023 documented in this encounter Plan of Treatment Upcoming Encounters Date Type Department Care Team (Late st Contact Info) Description 06/07/2024 1:00 PM EST TH Visit (TeleHealth) [place] [address] Shelbie Cervantes MD [facility] [place] [address] 06/11/2024 9:00 AM EST Office [place] [address] Espinoza, Caroline E, OT 07/10/2024 8:00 AM EST Office [place] [address] Espinoza, Caroline E, OT 07/24/2024 10:00 AM EST Office [place] [address] Espinoza, Caroline E, OT 08/07/2024 10:00 AM EST Office [place] [address] Espinoza, Caroline E, OT 08/21/2024 10:00 AM EST Office [place] [address] Espinoza, Caroline E, OT documented as of this encounter Procedures Procedure Name Priority Date/Time Associated Diagnosis Comments NON-DYEING MACHINE BACK TENDER FINAL REPORT Routine 05/09/2023 9:01 AM EST SPECIMEN TO PATHOLOGY Routine 05/09/2023 8:33 AM EST SPECIMEN TO PATHOLOGY Routine 05/09/2023 8:33 AM EST SPECIMEN TO PATHOLOGY Routine 05/09/2023 8:33 AM EST SURGICAL PATHOLOGY REPORT Routine 05/09/2023 8:23 AM EST Cystourethroscopy, Biopsies ([id number]) Yes 05/09/2023 7:43 AM EST Urethral tumor CYSTO,URETHROSCOPY WITH BIOPSY Routine 05/09/2023 6:18 AM EST Urethral tumor documented in this encounter Results * (ABNORMAL) Non-Avionics Systems Technician Final Report (05/09/2023 9:01 AM EST) Diagnosis Discussion [id number] ? Location: [facility] The signing pathologist has (i) examined the relevant preparation(s) for the specimen(s) and (ii) rendered or confirmed the diagnosis(es). . ? Non-Avionics Systems Technician Final DIAGNOSIS Positive for Malignancy Electronically signed by: ?Ophelia BARRON, Quinten Zhang Verified: ??05/18/2023 14:18 ??Cytopathologist Performed at: ??-[facility] Dept. of Pathology, [place] [address] Transplant Surgeon: Corbin Doll MD, AP, ??CLIA Certificate: [id number] DISCUSSION Lymph node: left inguinal (FNA) - Carcinoma. The tumor resembles that which is present in the concurrent surgical penile biopsies. See also the concurrent surgical biopsies, -[id number]. --- Immunohistochemistry Studies --- Interpretation: ? Immunohistochemical assays were performed (on paraffin-embedded cell block sections fixed in 10% neutral buffered formalin for 6-72 hours) using the polymer technique with appropriate controls. The sections are studied for p40. The lesional cells are immunoreactive for p40. These immunohistochemical studies provide ancillary information and are used only in conjunction with standard diagnostic procedures. THIS RESULT REQUIRES PHYSICIAN/A.P.P. FOLLOW UP CLINICAL INFORMATION Specimen Source : Lymph node: left inguinal (FNA) Pertinent Clinical Data and Significant Therapy: 72M with suspected penile cancer Clinical Impression : FNA of L inguinal node Pertinent Radiologic Findings ??: (not provided) Gross Description: Received ??in Formalin approximately 45 mL total volume of ?? clear, colorless fluid, with light flecks. Total Preparation: Cell Block 1.(A) 05/18/2023 2:18 PM EST [facility] LYMPH NODE SPECIMEN / Unknown 05/09/2023 9:01 AM EST 05/09/2023 9:01 AM EST Shelbie Cervantes MD PATHOLOGY/CYTOLOGY [facility] Performing Organization Address City/[facility] Co de Phone Number [facility] [address] [place] [address] * Specimen to Pathology (05/09/2023 8:33 AM EST) AP Specimen 05/09/2023 8:33 AM EST 05/09/2023 8:33 AM EST Narrative [facility] - 05/09/2023 8:33 AM EST Specimen requisition ordered. ??Separate Pathology report to follow Shelbie Cervantes MD PATHOLOGY/CYTOLOGY [facility] Performing Organization Address City/[facility]/ZIP Co de Phone Number [facility] [place] [address] * Specimen to Pathology (05/09/2023 8:33 AM EST) AP Specimen 05/09/2023 8:33 AM EST 05/09/2023 8:33 AM EST Narrative [facility] - 05/09/2023 8:33 AM EST Specimen requisition ordered. ??Separate Pathology report to follow Shelbie Cervantes MD PATHOLOGY/CYTOLOGY [facility] Performing Organization Address [facility] Co de Phone Number [facility] [place] [address] * Specimen to Pathology (05/09/2023 8:33 AM EST) AP Specimen 05/09/2023 8:33 AM EST 05/09/2023 8:33 AM EST Narrative [facility] - 05/09/2023 8:33 AM EST Specimen requisition ordered. ??Separate Pathology report to follow Shelbie Cervantes MD PATHOLOGY/CYTOLOGY [facility] Performing Organization Address [facility] Co de Phone Number [facility] [place] [address] * (ABNORMAL) Surgical Pathology Report (05/09/2023 8:23 AM EST) Final Diagnosis [id number] ? Location: [facility] The signing pathologist has (i) examined the relevant preparation(s) for the specimen(s) and (ii) rendered or confirmed the diagnosis(es). . ?Surgical Pathology DIAGNOSIS A - Transurethral penile biopsy: - Invasive carcinoma. B - Trucut penile biopsy: - Invasive carcinoma, see discussion. Electronically signed by: ?Souleymane Solano MD Verified: ??05/17/2023 16:21 ??Pathologist Performed at: ??-[facility] Dept. of Pathology, [place] [address] Transplant Surgeon: Corbin Doll MD, FCAP, ??CLIA Certificate: [id number] DISCUSSION Sections of parts A and B show extensive infiltration of invasive carcinoma, with squamoid features and patchy areas of myxoid stroma. Prior case [id number] was reviewed, with similar morphology noted. See [id number] for concurrent left inguinal lymph node fine needle aspiration. THIS RESULT REQUIRES PHYSICIAN/A.P.P. FOLLOW UP ADDITIONAL STUDIES Immunohistochemistry Studies: Formalin-fixed, paraffin-embedded tissue sections are studied using the polymer technique with appropriate positive and negative controls. ?These IHC studies provide the pathologist with adjunctive diagnostic information. Antibody specificity has been verified by testing antibodies on a series of in-house tissues with known immunohistochemical performance characteristics. The clinical interpretation of any antibody positive staining or its absence is evaluated within the context of clinical presentation, morphology, histopathological criteria and other diagnostic tests. Block ? Antibody ?Result (Positive/Negative) A1 ? p40 ?Positive A1 ? CK AE1/AE3 ? Positive A1 ? SOX10 ?Negative SPECIMEN(S) SUBMITTED A - TRANSURETHRAL PENILE BIOPSY, biopsy (1) B - TRUCUT PENILE BIOPSY, biopsy (1) C - FINE NEEDLE ASPIRATION LEFT GROIN LYMPH NODES, biopsy (1) CLINICAL INFORMATION Urethral cancer SPECIMEN PROCESSING A - Labeled/Fixative: Transurethral penile biopsy, formalin. Quantity/Size: Two, <0.1 cm. Tissue Description: Soft, pink-white tissues. Sections/Processing: Submitted in toto ??in 1 cassette labeled A1. . SPECIMEN PROCESSING B - Labeled/Fixative: Levon-Cut penile biopsy, formalin. Quantity/Size: Three, ranging from 0.8 x 0.1 cm to 1.1 x 0.1 cm Tissue Description: Martinez-pink needle core biopsies. Sections/Processing: Entirely submitted in 1 cassette labeled B1. C - Labeled/Fixative: Fine-needle aspiration left groin lymph nodes, formalin. Quantity/Size: Multiple, <0.1 cm Tissue Description: White needle core biopsies. Sections/Processing: Cell block preparation. Entirely submitted in 1 cassette labeled C1. ??sns(A) 05/17/2023 4:21 PM EST [facility] LYMPH NODE SPECIMEN / Unknown 05/09/2023 8:23 AM EST 05/09/2023 8:23 AM EST BIOPSY SPECIMEN / Unknown 05/09/2023 8:23 AM EST 05/09/2023 8:23 AM EST LYMPH NODE SPECIMEN / Unknown 05/09/2023 8:23 AM EST 05/09/2023 8:23 AM EST Shelbie Cervantes MD PATHOLOGY/CYTOLOGY O RDERABLES [facility] [place] [address] [facility] [place] [address] documented in this encounter Visit Diagnoses Diagnosis Urethral tumor Neoplasm of unspecified nature of other genitourinary organs Urethral tumor Neoplasm of unspecified nature of other genitourinary organs documented in this encounter Administered Medications Inactive Administered Medications - up to 3 most recent administrations Medication Order MAR Action Action Date Dose Rate Site acetaminophen (Tylenol) tablet 975 mg 975 mg, Oral, ONCE, 1 dose, On Tue05/09/23 at 0715, Maximum dose of acetaminophen is 4,000 mg from all sources in 24 hours. When ordered for pain, acetaminophen should be given even when other ordered pain medications are indicated. , Routine Given 05/09/2023 7:28 AM EST 975 mg lactated ringers infusion 1,000 mL, at 100 mL/hr, Intravenous, CONTINUOUS, Starting on Tue05/09/23 at 0645, Until Tue05/09/23 at 1206, Day of Surgery (Day of Procedure) Restarted 05/09/2023 7:44 AM EST New Bag 05/09/2023 6:40 AM EST 1,000 mLs 100 mL/hr lidocaine (Xylocaine) 1% (10 mg/mL) injection 3 mg 3 mg (0.3 mL), Subcutaneous, ONCE PRN, 1 dose, Starting on Tue05/09/23 at 0618, Until Tue05/09/23 at 1206, for discomfort with PIV insertion, Day of Surgery (Day of Procedure), Routine sodium chloride 0.9 % (flush) (BD PosiFlush Normal Saline 0.9) flush 5-20 mL 5-20 mL, Intravenous, EVERY 1 MIN PRN, Starting on Tue05/09/23 at 0618, Until Tue05/09/23 at 1206, flush, Flush pertains to all indwelling lines. Flush per protocol found in the job aid using the link provided on this medication record., Day of Surgery (Day of Procedure), Routine documented in this encounter Active and Recently Administered Medications Times are shown in EST. Scheduled Medication Order 05/07/2023 05/08/2023 05/09/2023 acetaminophen (Tylenol) tablet 975 mg (COMPLETED) 975 mg, Oral, ONCE, 1 dose, On Tue05/09/23 at 0715, Maximum dose of acetaminophen is 4,000 mg from all sources in 24 hours. When ordered for pain, acetaminophen should be given even when other ordered pain medications are indicated. , Routine 0728 (Given - Provid er: Moni Wilhelm RN) ceFAZolin (Ancef) 2 g in dextrose 5% 100 mL infusion (COMPLETED) 2 g, Intravenous, ONCE, 1 dose, On Tue05/09/23 at 0800, Administer over 30 Minutes, Indication for (Active or Suspected): Prophylaxis 0750 (Given - Provid er: Samaria Muhammad CRNA) Continuous Medication Order 05/07/2023 05/08/2023 05/09/2023 lactated ringers infusion 1,000 mL, at 100 mL/hr, Intravenous, CONTINUOUS, Starting on Tue05/09/23 at 0645, Until Tue05/09/23 at 1206, Day of Surgery (Day of Procedure) 0640 (New Bag - Prov ider: Moni Wilhelm RN)0743 (Paused - Provider: Samaria Muhammad CRNA - Comment: Switch to gravity)0744 (Restarted - Provider: Samaria Muhammad CRNA)0834 (Anesthesia Volume Adjustment - Provider: Samaria Muhammad CRNA) PRN Medication Order 05/07/2023 05/08/2023 05/09/2023 lidocaine (Xylocaine) 1% (10 mg/mL) injection 3 mg 3 mg (0.3 mL), Subcutaneous, ONCE PRN, 1 dose, Starting on Tue05/09/23 at 0618, Until Tue05/09/23 at 1206, for discomfort with PIV insertion, Day of Surgery (Day of Procedure), Routine sodium chloride 0.9 % (flush) (BD PosiFlush Normal Saline 0.9) flush 5-20 mL 5-20 mL, Intravenous, EVERY 1 MIN PRN, Starting on Tue05/09/23 at 0618, Until Tue05/09/23 at 1206, flush, Flush pertains to all indwelling lines. Flush per protocol found in the job aid using the link provided on this medication record., Day of Surgery (Day of Procedure), Routine documented in this encounter Care Teams Aqua Ammonia Operator Relationship Specialty Start Date End Date Shannan Arellano, DRUG SAFETY PHYSICIAN [place] [address] [place] [address] PCP - General Family Medicine 02/03/23 documented as of this encounter
--- OUTSIDE RECORDS SUMMARY | 2024-06-04 17:32 | XMS_ITS | Encounter Summary ---
Author Organization [facility] Address [address] [place] [address] Care Team Providers Care Prep Manager Name Role Phone Eusebio Montoya PA-C Primary Care Provider [phone] Encounter Details Date Type Department Care Team (Late st Contact Info) Description 12/05/2020 Lab Requisition [facility] [place] Pathology [facility] Laboratory Medicine - [address] [id number] Outr Resulting Lab, Provider Social History Tobacco Use Types Packs/Day Years [...] RNA BY PCR Routine 12/05/2020 8:50 EDT documented in this encounter Results * HEPATITIS C AB W REFLEX TO HCV RNA BY PCR (12/05/2020 8:50 EDT) Hep C Antibody Negative Negative 12/08/2020 10:46 EDT [facility] Blood VENOUS BLOOD / Unknown 12/05/2020 8:50 EDT 12/05/2020 20:57 EDT us Provider Outr Resulting Lab CHEMISTRY & BLOOD GA S ORDERABLES Final Result [facility] [address] [place] [address] documented in this encounter Visit Diagnoses Not on filedocumented in this encounter Care Teams Prep Manager Relationship Specialty Start Date End Date Eusebio Montoya PA-C [address] [place] [id number] PCP - General 04/23/19 documented as of this encounter
--- OUTSIDE RECORDS SUMMARY | 2024-06-04 17:32 | XMS_ITS | Encounter Summary ---
Author Organization [facility] Address [facility] [address] Care Team Providers Care Warehouse Worker 2Nd Shift Name Role Phone Shannan Arellano APRN Primary Care Provider [phone] Encounter Details Date Type Department Care Team (Late st Contact Info) Description 05/09/2023 7:38 AM EST Anesthesia Event [place] [address] Jameson Hedrick MD [facility] [place] [address] Namita Jin MD [facility] [place] [address] Anesthesia Record Procedure Summary Procedure Name Responsible Anesthesiologist Anesthesia Start Time Anesthesia Stop Time CYSTO, URETHROSCOPY WITH BIOPSY (WRVU 2.59) (Bladder) Jameson Hedrick MD 05/09/23 0738 05/09/23 0844 Events Date Time Event Comment 05/09/2023 0655 0738 Start 0743 AN Verify 0743 An Start Data 0748 An Induction 0749 An Intubation 0749 Anesthesia Ready 0839 an stop data 0842 Recovery or ICU Handoff Camilla ent care was transferred to the destination unit staff after review of the patient's medical history, current anesthetic/surgical status and plan, according to the Provider Handoff Checklist. 0844 Stop Meds Name Total Midazolam 2 mg fentaNYL 100 mcg IV Lidocaine 170 mg Propofol 50 mg Propofol INF 357.12 mg Dexamethasone 8 mg Ondansetron 8 mg ePHEDrine 30 mg ceFAZolin (Ancef) 2 g in dextrose 5% 100 mL infusion 2 g lactated ringers infusion 900 mL * Agents Name O2 * Blood No blood administrations on file. Lines, Drains, and Airways Type Details Placement Removal PIV 05/09/23; 0639; oncy-buc-ldapkb catheter system; 20 gauge; metacarpal vein (top of hand), left; Anatomical Landmarks; topical anesthetic spray applied; 05/09/23; 1003 05/09/23 0639 by Moni Wilhelm RN 05/09/23 1003 by Shilpi Fisher RN Supraglottic LMA Type: iGel; LMA Size: 4; Removal Date: 06/24/23; Removal Time: 1202 05/09/23 0652 by Samaria Muhammad CRNA 06/24/23 1202 by Ashley Pat CRNA documented in this encounter Social History Tobacco Use Types Packs/Day Years Used Date Smoking Tobacco: Never Smokeless Tobacco: Never Alcohol Use Standard Drinks/Week Comments Yes 1 (1 standard drink = 0.6 oz pur e alcohol) Sex and Gender Information Value Date Recorded Sex Assigned at Not on file Gender Identity Not on file Sexual Orientation Not on file documented as of this encounter OR Notes * Anesthesia Postprocedure Evaluation - Jameson Hedrick MD - 05/09/2023 11:16 AM EST Department of Anesthesiology Post-procedure Note Patient: Eduardo Contreras Procedure Summary Date: 05/09/23 Room / Location: [facility] OR [address] [place] [address] OSC Anesthesia Start: 737 Anesthesia Stop: 843 Procedure: CYSTO, URETHROSCOPY WITH BIOPSY (WRVU 2.59) (Bladder) Diagnosis: Urethral tumor (Urethral cancer) Surgeons: Zachary Garcia MD Responsible Provider: Jameson Hedrick MD Anesthesia Type: general ASA Status: 1 All Anesthesia Providers: Anesthesiologist: Jameson Hedrick MD SENIOR SALES MANAGER: Samaria Muhammad CRNA Vitals Value Taken Time BP 155/81 05/09/23 0930 Temp 36.1 ??C (97 ??F) 05/09/23 0840 Pulse 49 05/09/23 0945 Resp 14 05/09/23 0930 SpO2 97 % 05/09/23 0945 Pain Level 0 05/09/23 0945 Patient Location: PACU/SDP Level of Consciousness: Awake and Alert Pain Management: Satisfactory Analgesia PONV: None Cardiovascular Status: At Baseline Respiratory Status: At Baseline Postoperative Fluid Status: Possible Anesthetic Complications: NONE apparent at time of evaluation Final Primary Anesthesia Type: General (The anesthetic type performed was the same as planned.) Comments: * Anesthesia Preprocedure Evaluation - Jameson Hedrick MD - 05/09/2023 6:46 AM EST Pre-Anesthesia Evaluation for: Eduardo herrera 72 y.o. male. Procedure(s): CYSTO, URETHROSCOPY WITH BIOPSY (VU 2.59) There are no problems to display for this patient. History reviewed. No pertinent past medical history. History reviewed. No pertinent surgical history. Social History Tobacco Use ??? Smoking status: Never ??? Smokeless tobacco: Never Substance Use Topics ??? Alcohol use: Yes Alcohol/week: 1.0 standard drink of alcohol Types: 1 Cans of beer per week Social History Substance and Sexual Activity Drug Use Never No Known Allergies Medications: MAR and/or home medications have been reviewed. Physical Exam: Preprocedure Vitals Current as of 05/09/23 0646 BP: 128/81 Pulse: 45 Resp: 18 SpO2: 95 Temp: 36.3 ??C (97.3 ??F) Height: 172.7 cm (5' 8) (05/09/23) Weight: 74.4 kg (164 lb) (05/09/23) BMI: 24.93 IBW: 68.4 kg (150 lb 12.1 oz) Last edited 05/09/23 0632 by MV Airway Assessment: Mallampati: I TM distance: >3 FB Neck ROM: full Cardiovascular Assessment: system normal Pulmonary Assessment: pulmonary exam normal Dental Assessment: - normal exam Misc Assessment: Last Filed Perioperative Cognitive Screening None Anesthesia Plan: ASA 1 general, with a(n) intravenous induction 72 y/o male, no significant medical history, presenting for cystourethroscopy with bladder bx. NKDA NPO adequate No prior anesthetics Plan for GA with LMA. Informed Consent: Anesthetic plan and risks discussed with patient. Plan discussed with SENIOR SALES MANAGER. Anesthesia Screening documented in this encounter Plan of Treatment Upcoming Encounters Date Type Department Care Team (Late st Contact Info) Description 06/07/2024 1:00 PM EST TH Visit (TeleHealth) [place] [address] Zachary Garcia MD [facility] [place] [address] 06/11/2024 9:00 AM EST Office Visit [place] [address] Espinoza, Caroline E, OT 07/10/2024 8:00 AM EST Office Visit [place] [address] Espinoza, Caroline E, OT 07/24/2024 10:00 AM EST Office Visit [place] [address] Espinoza, Caroline E, OT 08/07/2024 10:00 AM EST Office Visit [place] [address] Espinoza, Caroline E, OT 08/21/2024 10:00 AM EST Office Visit [place] [address] Espinoza, Caroline E, OT documented as of this encounter Visit Diagnoses Not on filedocumented in this encounter Administered Medications Inactive Administered Medications - up to 3 most recent administrations Medication Order MAR Action Action Date Dose Rate Site ceFAZolin (Ancef) 2 g in dextrose 5% 100 mL infusion 2 g, Intravenous, ONCE, 1 dose, On Tue05/09/23 at 0800, Administer over 30 Minutes, Indication for (Active or Suspected): Prophylaxis Given 05/09/2023 7:50 AM EST 2 g dexAMETHasone (Decadron) injection Intravenous, PRN, Starting on Tue05/09/23 at 0755, Until Tue05/09/23 at 0848, Anesthesia Intra-op, Routine Given 05/09/2023 7:55 AM EST 8 mg ePHEDrine sulfate (5 mg/mL) multi-dose injection Intravenous, PRN, Starting on Tue05/09/23 at 0800, Until Tue05/09/23 at 0848, Anesthesia Intra-op, Routine Given 05/09/2023 8:43 AM EST 5 mg Given 05/09/2023 8:38 AM EST 10 mg Given 05/09/2023 8:27 AM EST 5 mg fentaNYL (pf) (50 mcg/mL) multi-dose injection Intravenous, PRN, Starting on Tue05/09/23 at 0747, Until Tue05/09/23 at 0848, Anesthesia Intra-op, Routine Given 05/09/2023 8:31 AM EST 25 mcg Given 05/09/2023 8:13 AM EST 25 mcg Given 05/09/2023 7:54 AM EST 25 mcg lactated ringers infusion 1,000 mL, at 100 mL/hr, Intravenous, CONTINUOUS, Starting on Tue05/09/23 at 0645, Until Tue05/09/23 at 1206, Day of Surgery (Day of Procedure) Restarted 05/09/2023 7:44 AM EST New Bag 05/09/2023 6:40 AM EST 1,000 mLs 100 mL/hr lidocaine (pf) (Xylocaine) (20 mg/mL) 2% injection syringe Intravenous, PRN, Starting on Tue05/09/23 at 0748, Until Tue05/09/23 at 0848, Anesthesia Intra-op, Routine Given 05/09/2023 7:59 AM EST 20 mg Given 05/09/2023 7:49 AM EST 100 mg Given 05/09/2023 7:48 AM EST 50 mg midazolam (pf) (Versed) (1 mg/mL) multi-dose injection Intravenous, PRN, Starting on Tue05/09/23 at 0740, Until Tue05/09/23 at 0848, Anesthesia Intra-op, Routine Given 05/09/2023 7:40 AM EST 2 mg ondansetron (pf) (Zofran) (2 mg/mL) injection Intravenous, PRN, Starting on Tue05/09/23 at 0759, Until Tue05/09/23 at 0848, Anesthesia Intra-op, Routine Given 05/09/2023 8:30 AM EST 4 mg Given 05/09/2023 7:59 AM EST 4 mg propofoL (Diprivan) (10 mg/mL) infusion Intravenous, CONTINUOUS PRN, Starting on Tue05/09/23 at 0745, Until Tue05/09/23 at 0848, Anesthesia Intra-op, Routine New Bag 05/09/2023 7:45 AM EST 100 mcg/kg/min 44.64 mL/hr propofoL (Diprivan) 10 mg/mL bolus injection (Anesthesia) Intravenous, PRN, Starting on Tue05/09/23 at 0748, Until Tue05/09/23 at 0848, Anesthesia Intra-op Given 05/09/2023 7:48 AM EST 50 mg documented in this encounter Care Teams Warehouse Worker 2Nd Shift Relationship Specialty Start Date End Date Shannan Arellano, [employer] [place] [address] PCP - General Family Medicine 02/03/23 documented as of this encounter
--- OUTSIDE RECORDS SUMMARY | 2024-06-04 17:32 | XMS_ITS | Encounter Summary ---
Author Organization [facility] [address] Care Team Providers Care Receiving And Processing Supervisor Name Role Phone Shannan Arellano APRN Primary Care Provider Encounter Details Date Type Department Care Team (Late st Contact Info) Description 05/01/2023 [place] [phone] Sarah Welch RN Social History Tobacco Use Types Packs/Day Years Used Date Smoking Tobacco: Never Smokeless Tobacco: Never Sex and Gender Information Value Date Recorded Sex Assigned at Not on file Gender Identity Not on file Sexual Orientation Not on file documented as of this encounter Miscellaneous Notes * Telephone Encounter - Sarah Welch RN - 05/01/2023 10:51 AM EST This RN returned the patients call, verified name and . This RN informed the patient that the reason Ellie called was to inform him that his most recent urine culture required no treatment. Patient verbalized understanding and asked to confirm that his appointment at the [facility] with Dr. Garcia was still scheduled, this RN confirmed that it was. * Telephone Encounter - Sarah Welch RN - 05/01/2023 10:51 AM EST Copied from [facility] #[id number]. Topic: Specialty Dept CRMs - Generic Call >> Apr 29, 2023 1:11 PM Chela Jose wrote: Specialist: Zachary Garcia MD Relationship (if other than patient-full name): Self Reason for Call: Patient returning call from closed encounter 04-29-23, please call to assist. Thank you. documented in this encounter Plan of Treatment Upcoming Encounters Date Type Department Care Team (Late st Contact Info) Description 06/07/2024 1:00 PM EST TH Visit (TeleHealth) [place] [address] Zachary Garcia MD [facility] [place] [address] 06/11/2024 9:00 AM EST Office [place] [address] Espinoza, Caroline E, OT 07/10/2024 8:00 AM EST Office [place] [address] Espinoza, Caroline E, OT 07/24/2024 10:00 AM EST Office [place] [address] Espinoza, Caroline E, OT 08/07/2024 10:00 AM EST Office [place] [address] Espinoza, Caroline E, OT 08/21/2024 10:00 AM EST Office [place] [address] Espinoza, Caroline E, OT documented as of this encounter Visit Diagnoses Not on filedocumented in this encounter Care Teams Receiving And Processing Supervisor Relationship Specialty Start Date End Date Shannan Arellano APRN [facility] [place] [address] PCP - General Family Medicine 02/03/23 documented as of this encounter
--- OUTSIDE RECORDS SUMMARY | 2024-06-04 17:32 | XMS_ITS | Encounter Summary ---
Author Organization [facility] [place] [address] Care Team Providers Care Airline Managerial Supervisor Name Role Phone Shannan Arellano YARN COMBER Primary Care Provider [phone] Reason for Visit * Auth/Cert (Routine) Specialty Diagnoses / Procedures Referred By Marry t Referred To Contact Diagnoses PENILE CANCER Procedures PRO REMOVAL PENIS, PARTIAL PRO REMOVE GROIN LYMPH NODES SUPERF PENILE AMPUTATION, PARTIAL (WRVU 11.01) LYMPHADENECTOMY, INGUINOFEMORAL- ADRIEN (WRVU 13.62) Zachary Garcia MD [place] [address] [facility] Referral ID Status Reason Start Date Expiration Date Visits Re quested Visits Authorized [id number] 1 1 Encounter Details Date Type Department Care Team (Late st Contact Info) Description 06/24/2023 11:31 AM EST Anesthesia Event [place] [address] Kirill Wiseman MD [facility] [place] [address] Kimo Edge CRNA [facility] [place] [address] Anesthesia Record Procedure Summary Procedure Name Responsible Anesthesiologist Anesthesia Start Time Anesthesia Stop Time PENILE AMPUTATION, PARTIAL (WRVU 11.01) (Perineum) Kirill Wiseman MD 06/24/23 1131 06/24/23 1950 Events Date Time Event Comment 06/24/2023 1035 1131 AN Verify 1131 Start 1133 An Start Data 1136 Quick Note Pt monitored co ntinuously throughout induction. Vitals were not carrying into chart. Error message cleared from capsule and entered manually. 1142 An Induction 1144 An Intubation 1148 Anesthesia Ready 1202 Quick Note Tucking arms. B P cuff no longer reading accurately. Cuff repositioned. Cord exchanged. 1230 Break/Relief In I assumed ca re for Break Relief before which we: 1. Identified the patient 2. Identified the responsible provider(s) 3. Reviewed the pertinent medical history 4. Discussed the surgical plan and course 5. Reviewed intra-op anesthesia management and issues during anesthesia 6. Set expectations for the relief (and/or post-procedure) period 7. Allowed opportunity for questions and acknowledgement of understanding Nirali Smith CRNA 1257 Break/Relief Out 1407 an franc now 1504 Break/Relief In I assumed ca re for Break Relief before which we: 1. Identified the patient 2. Identified the responsible provider(s) 3. Reviewed the pertinent medical history 4. Discussed the surgical plan and course 5. Reviewed intra-op anesthesia management and issues during anesthesia 6. Set expectations for the relief (and/or post-procedure) period 7. Allowed opportunity for questions and acknowledgement of understanding Jacklyn Kern CRNA 1524 Break/Relief Out 1703 Quick Note Starting laparo scopic component 1802 Break/Relief In I assumed ca re for Break Relief before which we: 1. Identified the patient 2. Identified the responsible provider(s) 3. Reviewed the pertinent medical history 4. Discussed the surgical plan and course 5. Reviewed intra-op anesthesia management and issues during anesthesia 6. Set expectations for the relief (and/or post-procedure) period 7. Allowed opportunity for questions and acknowledgement of understanding Jacklyn Kern CRNA 1826 Break/Relief Out 1927 Extubation/LMA Out 193 an stop data 1940 Recovery or ICU Handoff Camilla ent care was transferred to the destination unit staff after review of the patient's medical history, current anesthetic/surgical status and plan, according to the Provider Handoff Checklist. 1950 Stop Meds Name Total fentaNYL 100 mcg IV Lidocaine 100 mg Propofol 150 mg Rocuronium 190 mg ePHEDrine 25 mg Ondansetron 4 mg Dexamethasone 8 mg ceFAZolin (Ancef) 2 g vial a ttach to sodium chloride 0.9% 100 mL Mini-Bag Plus 4 g propofol INF 1,640.58 mg PHENYLephrine INF 7,040 mcg sugammadex 200 mg glycopyrrolate 0.4 mg heparin 5000 units SQ 5,000 Units HYDROmorphone 2 mg lactated ringers infusion 2,000 mL * Agents Name O2 * Blood No blood administrations on file. Lines, Drains, and Airways Type Details Placement Removal Incision 06/24/23; 1231; penis 06/24/23 1 231 by Chayo Lara RN Incision 06/24/23; 1306; Left , anterior; abdomen; transverse; LLQ 06/24/23 1306 by Chayo Lara RN Incision 06/24/23; 1443; Righ t, lower; lower quadrant; transverse; RLQ 06/24/23 1443 by Chayo Lara RN Closed/Suction Drain 06/24/23; 1701; 4; Right, Anterior; Hip; Bulb (Drain #2); 15 Setswana 06/24/23 1701 by Chayo Lara RN Closed/Suction Drain 06/24/23; 1701; 3; Left, Anterior; LLQ; Bulb (Drain #1); 15 Setswana 06/24/23 1701 by Chayo Lara RN Incision 06/24/23; 1751; abdo men; laparoscopic punctures (specify); 3 Trocar Sites 06/24/23 1751 by Chayo Lara RN Supraglottic LMA Type: iGel; LMA Size: 4; Removal Date: 06/24/23; Removal Time: 1202 05/09/23 0652 by Samaria Muhammad, SYSTEMS SUPPORT SPECIALIST 06/24/23 1202 by Ashley Pat CRNA Urethral Catheter 06/24/23; Urologic surgery; indwelling double lumen catheter; 18; inserted at this facility; 1; 5; 5; 06/25/23; 0814 06/24/23 0000 by Amna Bocanegra RN 06/25/23 0814 by Juliann Fraser RN PIV 06/24/23; 0924; boji-lpo-ttwkmf catheter system; 20 gauge; cephalic vein (lateral side of arm), left; Anatomical Landmarks; KIRA Franklin; distraction, intradermal injection, tolerated well, appears comfortable; 06/26/23; 1525 06/24/23 0924 by Edwin Dubon RN 06/26/23 1525 by Juliann Fraser RN ETT Mask Ventilation: Ea sy (1); ETT Type: Oral; ETT Size: 7 mm; Mac Blade: 4; Notes: Asleep; Attempts: 1; Laryngoscopy Grade: 1; ETT Placement Verified By: Auscultation, Capnometry, Visual; Secured at Teeth: 23 cm; Inserted by: Vipul Pat; Removal Date: 06/24/23; Removal Time: 192606/24/23 1144 by Ashley Pat CRNA 06/24/231926 by Jovanny Silva CRNA PIV 06/24/23; 1156; qfkq-vrg-ffxqdf catheter system; 20 gauge; median vein (underside of arm), right; Anatomical Landmarks; [place]; tolerated well; 06/25/23; 1719 06/24/23 1156 by Ashley Pat CRNA 06/25/23 1719 by Juliann Fraser RN documented in this encounter Social History Tobacco Use Types Packs/Day Years Used Date Smoking Tobacco: Never Smokeless Tobacco: Never Alcohol Use Standard Drinks/Week Comments Yes 1 (1 standard drink = 0.6 oz pur e alcohol) DH IPV Inpatient Questions Answer Date Recorded [...] OR Notes * Anesthesia Postprocedure Evaluation - Bowen, Kirill Pearce MD - 06/24/2023 9:39 PM EST Department of Anesthesiology Post-procedure Note Patient: Eduardo Contreras Procedure Summary Date: 06/24/23 Room / Location: [facility] OR [address] [place] [address] MAIN OR Anesthesia Start: 1131 Anesthesia Stop: 1950 Procedures: PENILE AMPUTATION, PARTIAL (WRVU 11.01) (Perineum) LYMPHADENECTOMY, INGUINOFEMORAL- ADRIEN (WRVU 13.62) (Bilateral: Abdomen) LAPAROSCOPIC LYMPHADENECTOMY (WRVU 17.08) (Bilateral: Abdomen) FLAP, MYOCUTANEOUS OR FASCIOCUTANEOUS, LOWER EXTREMITY (WRVU 19.04) (Bilateral) Diagnosis: (PENILE CANCER) Surgeons: Zachary Garcia MD Responsible Provider: Kirill Wiseman MD Anesthesia Type: general ASA Status: 2 All Anesthesia Providers: Anesthesiologist: Kirill Wiseman MD; Jovanny Way MD SYSTEMS SUPPORT SPECIALIST: Jovanny Silva CRNA; Ashley Pat CRNA Anesthesia Staff: RESOURCE, ANESTHESIA Vitals Value Taken Time BP 112/66 06/24/232129 Temp 37.8 ??C (100 ??F) 06/24/231938 Pulse 68 06/24/232137 Resp 11 06/24/232137 SpO2 92 % 06/24/232137 Pain Level 0 06/24/231938 Vitals shown include unfiled device data. Patient Location: PACU/SD Level of Consciousness: Awake and Alert Pain Management: Satisfactory Analgesia PONV: None Cardiovascular Status: Hypotension (received treatment) Respiratory Status: Supplemental O2 (NC or FM) Postoperative Fluid Status: Intravascular EUvolemia Possible Anesthetic Complications: NONE apparent at time of evaluation Final Primary Anesthesia Type: General (The anesthetic type performed was the same as planned.) Comments: Slow emergence likely due to long anesthetic and propofol infusion. Required transient phenylephrine infusion. * Anesthesia Preprocedure Evaluation - Jovanny Way MD - 06/24/2023 10:34 AM EST Pre-Anesthesia Evaluation for: Eduardo Contreras a 73 y.o. male. Procedure(s): PENILE AMPUTATION, PARTIAL (WRVU 11.01) LYMPHADENECTOMY, INGUINOFEMORAL- ADRIEN (WRVU 13.62) There are no problems to display for this patient. History reviewed. No pertinent past medical history. Past Surgical History: Procedure Laterality Date ??? PRO CYSTOURETHROSCOPY, BIOPSIES N/A 05/09/2023 CYSTO, URETHROSCOPY WITH BIOPSY (WRVU 2.59) performed by Zachary Garcia MD at [facility] Social History Tobacco Use ??? Smoking status: Never ??? Smokeless tobacco: Never Substance Use Topics ??? Alcohol use: Yes Alcohol/week: 1.0 standard drink of alcohol Types: 1 Cans of beer per week Social History Substance and Sexual Activity Drug Use Never No Known Allergies Medications: MAR and/or home medications have been reviewed. Physical Exam: Preprocedure Vitals Current as of 06/24/23 1034 BP: 141/75 Pulse: 85 Resp: 16 SpO2: Temp: 36.8 ??C (98.2 ??F) Height: 172.7 cm (5' 8) (06/24/23) Weight: 73.9 kg (163 lb) (06/24/23) BMI: 24.78 IBW: 68.4 kg (150 lb 12.1 oz) Last edited 06/24/23 09 by BG Airway Assessment: Mallampati: I TM distance: >3 FB Neck ROM: full Cardiovascular Assessment: Rhythm: regular Rate: normal Pulmonary Assessment: unlabored breathing Dental Assessment: - normal exam Misc Assessment: IV access: Peripheral line Last Filed Perioperative Cognitive Screening None Anesthesia Plan: ASA 2 general, with a(n) intravenous induction 73 y/o male, no significant medical history, presenting for partial penectomy and lymph node biopsies NKDA NPO adequate Recent anesthetic at [facility] for cysto, no issues. Plan for GA with ETT, standard monitors. Region - Other Informed Consent: Anesthetic plan and risks discussed with patient. Use of blood products discussed with patient who consented to blood products. Plan discussed with SYSTEMS SUPPORT SPECIALIST and attending. Anesthesia Screening documented in this encounter Plan of Treatment Upcoming Encounters Date Type Department Care Team (Late st Contact Info) Description 06/07/2024 1:00 PM EST TH Visit (TeleHealth) [place] [address] Zachary Garcia MD [place] [address] 06/11/2024 9:00 AM EST Office [place] [address] Espinoza Caroline E, OT 07/10/2024 8:00 AM EST Office [place] [address] Espinoza Caroline E, OT 07/24/2024 10:00 AM EST Office [place] [address] Espinoza Caroline E, OT 08/07/2024 10:00 AM EST Office [place] [address] Espinoza Caroline E, OT 08/21/2024 10:00 AM EST Office [place] [address] Espinoza, Caroline E, OT documented as of this encounter Visit Diagnoses Not on filedocumented in this encounter Administered Medications Inactive Administered Medications - up to 3 most recent administrations Medication Order MAR Action Action Date Dose Rate Site ceFAZolin (Ancef) 2 g vial attach to sodium chloride 0.9% 100 mL Mini-Bag Plus 2 g, Intravenous, NOVELTY BALLOON ASSEMBLER AND PACKER TO O.R., 1 dose, On Tue06/24/23 at 0915, Administer over 30 Minutes, Day of Surgery (Day of Procedure), Indication for (Active or Suspected): Prophylaxis Bolus 06/24/2023 3:40 PM EST 2 g New Bag 06/24/2023 11:48 AM EST 2 g dexAMETHasone (Decadron) injection Intravenous, PRN, Starting on Tue06/24/23 at 1149, Until Tue06/24/23 at 195, Anesthesia Intra-op, Routine Given 06/24/2023 11:49 AM EST 8 mg ePHEDrine sulfate (5 mg/mL) multi-dose injection Intravenous, PRN, Starting on Tue06/24/23 at 1146, Until Tue06/24/23 at 1958, Anesthesia Intra-op, Routine Given 06/24/2023 5:26 PM EST 10 mg Given 06/24/2023 12:46 PM EST 5 mg Given 06/24/2023 11:46 AM EST 10 mg fentaNYL (pf) (50 mcg/mL) multi-dose injection Intravenous, PRN, Starting on Tue06/24/23 at 1142, Until Tue06/24/23 at 1958, Anesthesia Intra-op, Routine Given 06/24/2023 12:28 PM EST 50 mcg Given 06/24/2023 11:42 AM EST 50 mcg glycopyrrolate (Robinul) (0.2 mg/mL) multi-dose injection Intravenous, PRN, Starting on Tue06/24/23 at 1149, Until Tue06/24/23 at 1957, Anesthesia Intra-op, Routine Given 06/24/2023 1:17 PM EST 0.2 mg Given 06/24/2023 11:49 AM EST 0.2 mg heparin (pf) (porcine) (5,000 unit/mL) multidose injection Subcutaneous, PRN, Starting on Tue06/24/23 at 1225, Until Tue06/24/23 at 1957, Anesthesia Intra-op, Routine Given 06/24/2023 12:25 PM EST 5,000 Un its HYDROmorphone (Dilaudid) (2 mg/mL) multi-dose injection solution Intravenous, PRN, Starting on Tue06/24/23 at 1406, Until Tue06/24/23 at 1957, Anesthesia Intra-op, Routine Given 06/24/2023 5:35 PM EST 0.4 mg Given 06/24/2023 5:30 PM EST 0.4 mg Given 06/24/2023 4:24 PM EST 0.4 mg lactated ringers infusion 1,000 mL, at 100 mL/hr, Intravenous, CONTINUOUS, Starting on Tue06/24/23 at 0915, Until Tue06/24/23 at 2206, Day of Surgery (Day of Procedure) New Bag 06/24/2023 11:31 AM EST lidocaine (pf) (Xylocaine) (20 mg/mL) 2% injection syringe Intravenous, PRN, Starting on Tue06/24/23 at 1142, Until Tue06/24/23 at 195, Anesthesia Intra-op, Routine Given 06/24/2023 11:42 AM EST 100 mg ondansetron (pf) (Zofran) (2 mg/mL) injection Intravenous, PRN, Starting on Tue06/24/23 at 1858, Until Tue06/24/23 at 1957, Anesthesia Intra-op, Routine Given 06/24/2023 6:58 PM EST 4 mg PHENYLephrine (Hermes-Synephrine) (80 mcg/mL) in sodium chloride 0.9% 250 mL infusion Intravenous, CONTINUOUS PRN, Starting on Tue06/24/23 at 1149, Until Tue06/24/23 at 1957, Anesthesia Intra-op, Routine Rate/Dose Change 06/24/2023 3:35 PM EST 20 mcg/min 15 mL/hr Rate/Dose Change 06/24/2023 2:59 PM EST 30 mcg/min 22.5 mL /hr Restarted 06/24/2023 1:29 PM EST 10 mcg/min 7.5 mL/hr propofoL (Diprivan) (10 mg/mL) infusion Intravenous, CONTINUOUS PRN, Starting on Tue06/24/23 at 1144, Until Tue06/24/23 at 1957, Anesthesia Intra-op, Routine New Bag 06/24/2023 11:44 AM EST 50 mcg/kg/min 22.17 mL/hr propofoL (Diprivan) 10 mg/mL bolus injection (Anesthesia) Intravenous, PRN, Starting on Tue06/24/23 at 1142, Until Tue06/24/23 at 1957, Anesthesia Intra-op Given 06/24/2023 11:42 AM EST 150 mg rocuronium (Zemuron) (10 mg/mL) multi-dose injection Intravenous, PRN, Starting on Tue06/24/23 at 1143, Until Tue06/24/23 at 1957, Anesthesia Intra-op, Routine Given 06/24/2023 6:45 PM EST 10 mg Given 06/24/2023 5:53 PM EST 10 mg Given 06/24/2023 5:03 PM EST 20 mg sugammadex (Bridion) 100 mg/mL injection Intravenous, PRN, Starting on Tue06/24/23 at 1919, Until Tue06/24/23 at 1957, Anesthesia Intra-op, Routine Given 06/24/2023 7:19 PM EST 200 mg documented in this encounter Care Teams Airline Managerial Supervisor Relationship Specialty Start Date End Date Adan, Shannan B, [place] [address] PCP - General Family Medicine 02/03/23 documented as of this encounter
--- OUTSIDE RECORDS SUMMARY | 2024-06-04 17:32 | XMS_ITS | Encounter Summary ---
Author Organization [facility] [place] [address] Care Team Providers Care Accounting Representative Name Role Phone Shannan Arellano GAYLE Primary Care Provider Reason for Referral * Physical Therapy (Routine) - Authorized Specialty Diagnoses / Procedures Referred By Marry kelsey Referred To Contact Physical Therapy Diagnoses Penile cancer Zachary Garcia MD [facility] [place] [address] [facility] [place] [address] Referral ID Status Reason Start Date Expiration Date Visits Requested Visits Authorized [id number] Authorized Evaluate and Treat 05/17/2023 06/15/2024 100 100 Encounter Details Date Type Department Care Team (Late st Contact Info) Description 05/17/2023 [place] [phone] Zachary Garcia MD [facility] [place] [address] Penile cancer (Primary Dx) Social History Tobacco [...] PM EST TH Visit (TeleHealth) [place] [address] Zachary Garcia MD [facility] [place] [address] 06/11/2024 9:00 AM EST Office [place] [address] Espinoza, Caroline E, OT 07/10/2024 8:00 AM EST Office [place] [address] Espinoza, Caroline E, OT 07/24/2024 10:00 AM EST Office [place] [address] Espinoza, Caroline E, OT 08/07/2024 10:00 AM EST Office [place] [address] Espinoza, Caroline E, OT 08/21/2024 10:00 AM EST Office [place] [address] Espinoza, Caroline E, OT Scheduled Referrals Name Type Priority Associated Diagnoses Orde r Schedule Referral to Physical Therapy Outpatient Referral Routine Penile cancer Ordered: 05/17/2023 documented as of this encounter Visit Diagnoses Diagnosis Penile cancer- Primary Malignant neoplasm of penis, part unspecified documented in this encounter Care Teams Accounting Representative Relationship Specialty Start Date End Date Shannan [place] [address] PCP - General Family Medicine 02/03/23 documented as of this encounter
--- OUTSIDE RECORDS SUMMARY | 2024-06-04 17:32 | XMS_ITS | Encounter Summary ---
Author Organization [facility] Address [facility] [place] [address] Care Team Providers Care Therapeutic Activities Services Worker Name Role Phone Shannan Arellano APRN Primary Care Provider [phone] Encounter Details Date Type Department Care Team (Late st Contact Info) Description 05/10/2023 [place] [address] Neo Wills MD [facility] [place] [address] Urethral tumor (Primary Dx) Social History Tobacco Use Types [...] PM EST TH Visit (TeleHealth) [place] [address] Zachary Garcia MD [facility] [place] [address] 06/11/2024 9:00 AM EST Office Visit [place] [address] Caroline Espinoza OT 07/10/2024 8:00 AM EST Office Visit [place] [address] Espinoza, Caroline E, OT 07/24/2024 10:00 AM EST Office Visit [place] [address] Espinoza, Caroline E, OT 08/07/2024 10:00 AM EST Office Visit [place] [address] Espinoza, Caroline E, OT 08/21/2024 10:00 AM EST Office Visit [place] [address] Espinoza, Caroline E, OT documented as of this encounter Visit Diagnoses Diagnosis 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
--- OUTSIDE RECORDS SUMMARY | 2024-06-04 17:32 | XMS_ITS | Encounter Summary ---
Author Organization [facility] [place] [address] Care Team Providers Care Manager Research And Development Name Role Phone Shannan Arellano APRN Primary Care Provider [phone] Encounter Details Date Type Department Care Team (Late Contact Info) Description 05/17/2023 [place] [address] Zachary Garcia MD [facility] [place] [address] Social History Tobacco Use Types Packs/Day Years [...] Telephone Encounter - Zachary Garcia MD - 05/17/2023 5:00 PM EST Call to patient Briefly discussed pathology [id number] penile/urethral cancer Will need. Local excision of mass +/- partial penectomy/ Bilateral groin dissection/Left pelvic node dissection. Fitting for [facility] Tumor board. Keep TOV for 05/24/2023 documented in this encounter Plan of Treatment Upcoming Encounters Date Type Department Care Team (Late st Contact Info) Description 06/07/2024 1:00 PM EST TH Visit (TeleHealth) [place] [address] Zcahary Garcia MD [facility] [place] [address] 06/11/2024 9:00 AM EST Office Visit Occupational Therapy at [place] [phone] Espinoza, Caroline E, OT 07/10/2024 8:00 AM EST Office [place] [address] Espinoza, Caroline E, OT 07/24/2024 10:00 AM EST Office [place] [address] Espinoza, Caroline E, OT 08/07/2024 10:00 AM EST Office [place] [address] Espinoza, Caroline E, OT 08/21/2024 10:00 AM EST Office [place] [address] Espinoza, Caroline E, OT documented as of this encounter Visit Diagnoses Not on filedocumented in this encounter Care Teams Manager Research And Development Relationship Specialty Start Date End Date Shannan Arellano, ALLERGIST/IMMUNOLOGIST [place] [address] PCP - General Family Medicine 02/03/23 documented as of this encounter
--- OUTSIDE RECORDS SUMMARY | 2024-06-04 17:32 | XMS_ITS | Encounter Summary ---
Author Organization [facility] [place] [address] Care Team Providers Care Percussion Welding Machine Operator Name Role Phone Shannan Arellano APRN Primary Care Provider Encounter Details Date Type Department Care Team (Late st Contact Info) Description 05/27/2023 [place] [phone] Zo Arboleda RN Social History Tobacco Use [...] Progress Notes * Zo Arboleda RN - 06/07/2023 3:10 PM EST Patient notified per Dr. Garcia that he needs thigh-high stockings, patient verbalizes understanding. * Zo Arboleda RN - 05/27/2023 2:21 PM EST Returned call to Sylvie, patients was inquiring if she could measure the patient for the stockings herself and get them at her local pharmacy, wanted to confirm if Dr. Carbajal wanted knee-high stockings. Will confirm with Dr. Carbajal. documented in this encounter Miscellaneous Notes * Telephone Encounter - Zo Arboleda RN - 05/27/2023 2:16 PM EST Copied from [facility] #[id number]. Topic: Specialty Dept CRMs - Generic Call >> May 27, 2023 9:19 AM Laurel Hernandez wrote: Specialist: Urology -Dr Garcia Relationship (if other than patient-full name): Sylvie Contreras - Reason for Call: Sylvie would like to know where they are suppose to get the patient compression socks and also does the patient need them before surgery or after surgery. Sylvie asked you call her and not the patient. documented in this encounter Plan of Treatment Upcoming Encounters Date Type Department Care Team (Late st Contact Info) Description 06/07/2024 1:00 PM EST TH Visit (TeleHealth) [place] [address] Zachary Garcia MD [facility] [place] [address] 06/11/2024 9:00 AM EST Office [place] [address] EspinozaTia de la torreyl E, OT 07/10/2024 8:00 AM EST Office [place] [address] Espinoza, Caroline E, OT 07/24/2024 10:00 AM EST Office [place] [address] Espinoza Caroline E, OT 08/07/2024 10:00 AM EST Office [place] [address] Espinoza Caroline E, OT 08/21/2024 10:00 AM EST Office [place] [address] Espinoza Caroline E, OT documented as of this encounter Visit Diagnoses Not on filedocumented in this encounter Care Teams Percussion Welding Machine Operator Relationship Specialty Start Date End Date Shannan Arellano, HOUSING AND RESIDENCE LIFE DIRECTOR [place] [address] PCP - General Family Medicine 02/03/23 documented as of this encounter
--- OUTSIDE RECORDS SUMMARY | 2024-06-04 17:32 | XMS_ITS | Encounter Summary ---
Author Organization [facility] Address [address] [place] [address] Care Team Providers Care Supervisor [employer] Name Role Phone Yasmin Dominguez PA-C Primary Care Provider [phone] Encounter Details Date Type Department Care Team (Late st Contact Info) Description 04/23/2019 Results Only [facility] [phone] Maggie Guevara MD [address] [place], [place] [id number] Social History Tobacco Use Types Packs/Day Years [...] Priority Date/Time Associated Diagnosis Comments SURGICAL PATHOLOGY Routine 04/23/2019 16 :01 EST documented in this encounter Results * SURGICAL PATHOLOGY (04/23/2019 16:01 EST) Pathology Report: SURGICAL PATHOLOGY REPORT Reports generated via electronic interface contain original data; however they are lacking the format of the original report. Caution should be taken when reading/interpret ing unformatted reports. Name: ? EBONY CONTRERAS ? Accession #: ? [id number] ? : ? 1950 (Age: 68) ??M ? Collect Date: ? 04/23/2019 ? Location: ? [facility] ? Receive Date: ? 04/23/2019 ? Provider: MAGGIE GUEVARA MD Copy to: YASMIN DOMINGUEZ PAC ? Final Pathologic Diagnosis: A. COLON, ASCENDING, POLYP BIOPSY: - Colonic mucosa with focal serrated change. - Deeper sections x3 examined B. COLON, SIGMOID, POLYP, BIOPSY: - Hyperplastic polyp. Document reviewed and electronically signed by: BERT CRAIG MD Report ??Date: 04/25/2019 11:43 By the signature above, the attending physician certifies that he/she has personally conducted a gross and/or microscopic examination of the described specimens and rendered or confirmed the above diagnosis. Specimen(s) Received: A. ??Ascending colon polyp B. ??Sigmoid polyp Clinical History: Screening for colon cancer Gross Description: A. ?Received in formalin labelled with proper patient identification (initials N, J) and ascending colon polyp is a silver fragment of pink tissue (0.4 x 0.3 x 0.2 cm). The specimen is submitted entirely in A1. B. ?Received in formalin labelled with proper patient identification (initials N, J) and sigmoid polyp are two fragments of pink tissue measuring 0.2 cm and 0.3 cm in greatest dimension. The specimens are submitted entirely in B1. LEONOR Hsieh (ASCP) 04/23/2019 4:10 PM End of Report [facility] 04/23/2019 16:0 1 EST 04/23/2019 16:01 EST us Maggie Guevara MD PATHOLOGY ORDERABLES Fin al Result [facility] [address] [place] [address] documented in this encounter Visit Diagnoses Not on filedocumented in this encounter Care Teams Supervisor [employer] Relationship Specialty Start Date End Date Yasmin [place] [address] PCP - General 04/23/19 documented as of this encounter
--- OUTSIDE RECORDS SUMMARY | 2024-06-04 17:32 | XMS_ITS | Encounter Summary ---
Author Organization [facility] [place] [address] Care Team Providers Care Colon And Rectal Surgeon Name Role Phone Shannan Arellano GAYLE Primary Care Provider [phone] Reason for Referral * Diagnostic Test (Routine) - Closed Specialty Diagnoses / Procedures Referred By Contac t Referred To Contact Radiology Diagnoses Urethral tumor Procedures MRI Pelvis Soft Tissue (GI SLIP COVER OPERATOR) Zachary Eller MD [facility] [place] [address] [place] [address] Referral ID Status Reason Start Date Expiration Date V isits Requested Visits Authorized [id number] Closed Specialty Service Requested 03/18/2023 09/15/2024 1 1 Reason for Visit * Diagnostic Test (Routine) - Closed Specialty Diagnoses / Procedures Referred By Contac t Referred To Contact Radiology Diagnoses Urethral tumor Procedures MRI Pelvis Soft Tissue (GI SLIP COVER OPERATOR) Zachary Eller MD [facility] [place] [address] [place] [address] Referral ID Status Reason Start Date Expiration Date V isits Requested Visits Authorized [id number] Closed Specialty Service Requested 03/18/2023 09/15/2024 1 1 Encounter Details Date Type Department Care Team (Latest Contact Info) Description 04/22/2023 3:26 PM EDT - 04/22/2023 11:59 PM EDT [place] [address] Zachary Garcia MD [facility] [address] Urethral tumor Discharge Disposition: Home Social History Tobacco Use [...] PM EST TH Visit (TeleHealth) [place] [address] Zachary Garcia MD [facility] [place] [address] 06/11/2024 9:00 AM EST Office [place] [address] Espinoza, Caroline E, OT 07/10/2024 8:00 AM EST Office [place] [address] Espinoza, Caroline E, OT 07/24/2024 10:00 AM EST Office [place] [address] Espinoza, Caroline E, OT 08/07/2024 10:00 AM EST Office [place] [address] Espinoza, Caroline E, OT 08/21/2024 10:00 AM EST Office [place] [address] Espinoza, Caroline E, OT documented as of this encounter Procedures Procedure Name Priority Date/Time Associated Diagnosis Comments MRI PELVIS SOFT TISSUE (GI SLIP COVER OPERATOR) WWO CONTRAST Routine 04/22/2023 5:14 PM EDT Urethral tumor documented in this encounter Results * MRI Pelvis Soft Tissue (GI SLIP COVER OPERATOR) wwo Contrast (04/22/2023 5:14 PM EDT) Anatomical [...] who have questions please contact the health floor care technician that requested your imaging first. ? Electronically signed by: Joni Velasquez MD, [facility] ([phone]), at 04/27/2023 10:18 AM Narrative 04/27/2023 10:18 AM EST EXAMINATION: MRI PELVIS SOFT TISSUE (GI SLIP COVER OPERATOR) WWO CONTRAST CLINICAL HISTORY: Distal Urethral cancer [...] 04/27/2023 EXAMINATION: MRI PELVIS SOFT TISSUE (GI SLIP COVER OPERATOR) WWO CONTRAST CLINICAL HISTORY: Distal Urethral cancer [...] patients who have questions please contactthe health floor care technician that requested your imaging first. 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 documented in this encounter Administered Medications Inactive Administered Medications - up to 3 most recent administrations Medication Order MAR Action Action Date Dose Rate Site gadoterate meglumine (Dotarem) (0.5 mMol/mL) injection solution 0-100 mL 0-100 mL, Intravenous, ONCE PRN, 1 dose, Starting on Tue04/22/23 at 1621, Until Tue04/22/23 at 1703, Per Protocol, Radiology Contrast, Routine Given 04/22/2023 5:03 PM EDT 15 mLs documented in this encounter Care Teams Colon And Rectal Surgeon Relationship Specialty Start Date End Date Shannan Arellano, ART DEALER [address] [place] [address] PCP - General Family Medicine 02/03/23 documented as of this encounter
--- OUTSIDE RECORDS SUMMARY | 2024-06-04 17:32 | XMS_ITS | Encounter Summary ---
Author Organization [facility] Address [facility] [place] [address] Care Team Providers Care Technical Publications Manager Name Role Phone Shannan Arellano APRN Primary Care Provider [phone] Encounter Details Date Type Department Care Team (Latest Contact Info) Description 04/22/2023 2:28 PM EDT - 04/22/2023 3:25 PM EDT Hospital Encounter XRay at [address] [place] [address] Zachary Garcia MD [facility] [place] [address] Urethral tumor Discharge Disposition: Home Social History [...] PM EST TH Visit (TeleHealth) [place] [address] Zachary Garcia MD [facility] [place] [address] 06/11/2024 9:00 AM EST Office [place] [address] Caroline Espinoza OT 07/10/2024 8:00 AM EST Office [place] [address] EspinozaTia santiagoyl E, OT 07/24/2024 10:00 AM EST Office [place] [address] EspinozaCaroline santiago, OT 08/07/2024 10:00 AM EST Office [place] [address] EspinozaCaroline santiago, OT 08/21/2024 10:00 AM EST Office [place] [address] EspinozaTiayl E, OT documented as of this encounter Procedures Procedure Name Priority Date/Time Associated Diagnosis Comments XR PRE MRI ORBITS Routine 04/22/2023 2:4 7 PM EDT Urethral tumor documented in this encounter Results * XR Pre MRI [...] who have questions please contact the health managed care manager that requested your imaging first. ? Narrative [...] patients who have questions please contactthe health managed care manager that requested your imaging first. 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
--- OUTSIDE RECORDS SUMMARY | 2024-06-04 17:32 | XMS_ITS | Encounter Summary ---
Author Organization [facility] Address [facility] [place] [address] Care Team Providers Care Public Relations Associate Name Role Phone Shannan Arellano APRN Primary Care Provider [phone] Encounter Details Date Type Department Care Team (Late st Contact Info) Description 03/18/2023 [place] [address] Moe Arauz MD [facility] [place] [address] Social History Tobacco Use Types Packs/Day Years [...] PM EST TH Visit (TeleHealth) [place] [address] Zachary Garcia MD [facility] [place] [address] 06/11/2024 9:00 AM EST Office [place] [address] Caroline Espinoza, OT 07/10/2024 8:00 AM EST Office [place] [address] Caroline Espinoza, OT 07/24/2024 10:00 AM EST Office [place] [address] Espinoza Caroline E, OT 08/07/2024 10:00 AM EST Office [place] [address] Espinoza, Caroline E, OT 08/21/2024 10:00 AM EST Office [place] [address] Espinoza, Caroline E, OT documented as of this encounter Visit Diagnoses Not on filedocumented in this encounter Care Teams Public Relations Associate Relationship Specialty Start Date End Date Shannan Arellano, CHAR PULLER Guerre[facility] [place] [address] PCP - General Family Medicine 02/03/23 documented as of this encounter
--- OUTSIDE RECORDS SUMMARY | 2024-06-04 17:32 | XMS_ITS | Encounter Summary ---
Author Organization [facility] Address [facility] [place] [address] Care Team Providers Care Welt Stitch Cleaner Name Role Phone Shannan Arellano APRN Primary Care Provider [phone] Reason for Visit * Physical Therapy (Routine) - Authorized Specialty Diagnoses / Procedures Referred By Marry kelsey Referred To Contact Physical Therapy Diagnoses Penile cancer Zachary Garcia MD [facility] [place] [address] [facility] [place] [address] Referral ID Status Reason Start Date Expiration Date Visits Requested Visits Authorized [id number] Authorized Evaluate and Treat 05/17/2023 06/15/2024 100 100 Encounter Details Date Type Department Care Team (Late st Contact Info) Description 05/31/2023 9:00 AM EST Office [place] [address] Caroline Espinoza OT Edema, unspecified type (Primary Dx) Social [...] as of this encounter Miscellaneous Notes * Initial Evaluation - Caroline Espinoza OT - 05/31/2023 9:00 AM ESTSummary: OT/CLT INITIAL EVALUATION: LE OT/CLT LE LYMPHEDEMA INITIAL EXAMINATION Date of Exam/First treatment: 05/31/23 Date of Onset 03/18/23 Referring Provider: Zachary Garcia MD Diagnosis and pertinent co-morbidities: Penile CA Primary Insurance: Payor: MEDICARE / Plan: MEDICARE PART A & B / Product Type: *No Product type* / Medicare Cert Period: 05/31/23- 08/29/23 Penile CA No past medical history on file. CURRENT HISTORY: Eduardo Contreras is a 72 y.o. male with h/o penile CA. Referred by DR. Garcia. Patient presents today with concerns of swelling/lymphedema with upcoming node resection. Educationdeficits regarding lymphedema risk post lymph node dissection and if radiation is planned. Sitting for compression wear for post op. Plan for local excision of distal urethra with hypospadiac meatus, bilateral groin dissection. MRI show suspicious LEFT inguinal lymph nodes. Pending discussion at tumor board Cystoscopy and biopsy on 05/09/23 Surgery scheduled for 06/24/22 for inguinal dissection and penile tumor resection. \ Plan for adjuvant chemo or radiation pending. 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 PRECAUTIONS: Reviewed risks for lymphedema . Risks related to radiation fibrosis if radiation si part of treatment plan. SOCIAL SUPPORTS: Patient lives with spouse, 6 childern marreid 30 years. Does not smoke. And drinksrarely ENVIRONMENT: I at home with out DME PATIENT STATED GOAL: I want to get back to work and doing what I like to do. CURRENT ACTIVITY LEVEL:Active lifestyle and work. 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 PAIN: Occasional knee and back pain from OA reported. FUNCTIONAL LIMITATIONS: On a difficulty scale with 0 being unable to perform an activity, and 10 being able to perform at a pre injury/occurance level 10/10 HAND DOMINANCE: Patient is R hand dominant. CLINICAL FINDINGS: 1) GENERAL OBSERVATION Thin healthy male. Good postural and neck control and AROM noted. Both UE and LE 2) STRENGTH:WNL 3) SKIN/PALPATION: NO H/O CELLULITIS? No Fibrotic changes. No hyperpigmentation, hyperplasia, hyperkeratosis, or papillomas noted No belly fluid noted. , 5) LE circumferences (cm) Right 05/31/23 Left 05/31/23 Mid foot 22.8 23.2 Ankle 25.4 24 Calf 33 35.3 D 32.3 31.8 Knee 35.7 35.5 Knee +12 45.3 46.8 Upper thigh G 55 53.4 A-D Length 38 A-G Length 75 32 waist Recommended JUZO 20-30 MMhG compression short size II Information given to order through [email or web address] 7) no GENITAL EDEMA, SEXUAL DYSFUNCTION, or H/O UTI reported CLINICAL EVALUATION AND DIAGNOSIS: Penile Ca with [...] Clinical presentation: Stable Evolving Unstable X Notes: OT/CLT Evaluation completed today. OT/CLT goals and POC eastablished with patient who is in agreement with plan as stated. Clinical decision making of moderate complexity using standardized patient assessment instrument and measurable assessment of functional outcome. The patient's rehabilitation potential is good for [...] techniques: Rolling. Muscle pump HEP. elevation Therapy Tester Equipment Goals 12 weeks 1. Patient will demonstrate ability to maintain reduction in swelling utilizing all techniques taught. THERAPEUTIC INTERVENTIONS UTILIZED TODAY: OT/CLT initial evaluation Initial education and training for MLD sequence including deep diaphragmatic breathing and deep abdominal lymph node drainage. Patient measure and given information for juzo compression shorts size II . Patient will order through lymphedema [employer] PLAN: OT/CLT SERVICES1 visit two weeks after pednign surgery scheduled for 06/24/23 Adding or tapering visits as needed. Treatment: manual lymphatic drainage compression bandaging if indicated Exercise teaching self care garment fitting Adjunct fluid management techniques Charges Minutes OT EVAL LOW (90959) OT EVAL MOD (82138) 15 OT EVAL HIGH (52602) MANUAL THERAPY(53531) 15 SELF CARE/HOME MANAGEMENT (77037) 15 THERAPEUTIC/FUNCTIONAL ACTIVITIES(85906) THEREX NEUROMUSCULAR BINA(54090) THEREX: STRENGTH ROM (68040) 15 Caroline Espinoza OT/CLT documented in this encounter Plan of Treatment Upcoming Encounters Date Type Department Care Team (Late st Contact Info) Description 06/07/2024 1:00 PM EST TH Visit (TeleHealth) [place] [address] Zachary Garcia MD [facility] [place] [address] 06/11/2024 9:00 AM EST Office [place] [address] Caroline Espinoza OT 07/10/2024 8:00 AM EST Office [place] [address] Caroline Espinoza OT 07/24/2024 10:00 AM EST Office [place] [address] Caroline Espinoza, OT 08/07/2024 10:00 AM EST Office [place] [address] Caroline Espinoza OT 08/21/2024 10:00 AM EST Office [place] [address] Caroline Espinoza OT documented as of this encounter Procedures Procedure Name Priority Date/Time Associated Diagnosis Comments OT PLAN OF CARE CERT/RE-CERT Routine 05/31/2023 2:05 PM EST Edema, unspecified type documented in this encounter Visit Diagnoses Diagnosis Edema, unspecified type- Primary documented in this encounter Care Teams Welt Stitch Cleaner Relationship Specialty Start Date End Date Shannan Arellano, SEAPORT PLANNING MANAGER [address] [place] [address] PCP - General Family Medicine 02/03/23 documented as of this encounter
--- OUTSIDE RECORDS SUMMARY | 2024-06-04 17:32 | XMS_ITS | Encounter Summary ---
Author Organization [facility] Address [address] [place] [address] Care Team Providers Care Contact Representative Name Role Phone Eusebio Montoya PA-C Primary Care Provider [phone] Encounter Details Date Type Department Care Team (Late st Contact Info) Description 11/29/2020 Lab Requisition [facility] Pathology & Laboratory Medicine - [address] [address] Outr Resulting Lab, Provider Social History Tobacco [...] Procedure Name Priority Date/Time Associated Diagnosis Comments LYME AB Routine 11/28/2020 17:00 EDT documented in this encounter Results * LYME AB (11/28/2020 17:00 EDT) Lyme Ab Negative Negative 12/01/2020 10:55 EDT [facility] Comment:New 3rd generation a ssay in use 11/28/2019 Blood VENOUS BLOOD / Unknown 11/28/2020 17:00 EDT 11/30/2020 15:57 EDT us Provider Outr Resulting Lab IMMUNOLOGY AND SEROL OGY ORDERABLES Final Result [facility] [address] [place] [address] documented in this encounter Visit Diagnoses Not on filedocumented in this encounter Care Teams Contact Representative Relationship Specialty Start Date End Date Eusebio Montoya PA-C [address] [place] [address] PCP - General 04/23/19 documented as of this encounter
--- OUTSIDE RECORDS SUMMARY | 2024-06-04 17:32 | XMS_ITS | Encounter Summary ---
[facility] Organization [facility] Address [facility] Ramses [address]ran[address] [place] [address] Care Team Providers Care Buying Intern Name Role Phone Shannan Arellano APRN Primary Care Provider [phone] Encounter Details Date Type Department Care Team (Latest Contact Info) Description 05/09/2023 6:11 AM EST - 05/09/2023 9:54 AM EST Hospital Encounter Outpatient Surgery Center [facility] [place] [address] Shelbie Cervantes MD [facility] [place] [address] Urethral tumor Discharge Disposition: Home Social History [...] Sign Reading Time Taken Comments Blood Pressure 155/81 05/09/2023 9:30 AM EST Pulse 49 05/09/2023 9:45 AM EST Temperature 36.1 ??C (97 ??F) 05/09/2023 8:40 AM EST Respiratory Rate 14 05/09/2023 9:30 AM EST Oxygen Saturation 97% 05/09/2023 9:45 AM EST Inhaled Oxygen Concentration - - [...] closest emergency room or call the hospital complaint operator at [phone] and ask for physician application tester covering for your physician. Questions or problems after 5pm or on a weekend: Call the [facility] complaint operator at and ask for the physician application tester covering for your doctor. At 0730 am [...] longer draining The number for questions is [phone] before 5 PM weekdays and [phone] after 5 PM and weekends. Activity level: [...] will be mailed to you. Please call [phone] (clinic number for appointments) to confirm date [...] Wills MD - 05/09/2023 8:[address] [facility] Operative Note Patient Name: Eduardo Contreras : [id number] MR#: [id number] Case Date: 05/09/2023 Surgeon: Surgeon(s) and Role: [...] cystoscopy. Forceps/Levon cut needle biopsies of mass. Left inguinal [...] to be inserted. There was resistance so Chappell sounds from 16 to 26Fr were used [...] PM EST TH Visit (TeleHealth) [place] [address] Shelbie Cervantes MD [facility] [place] [address] 06/11/2024 9:00 AM EST Office [place] [address] Espinoza, Caroline E, OT 07/10/2024 8:00 AM EST Office [place] [address] Espinoza, Caroline E, OT 07/24/2024 10:00 AM EST Office [place] [address] Espinoza, Caroline E, OT 08/07/2024 10:00 AM EST Office [place] [address] Espinoza, Caroline E, OT 08/21/2024 10:00 AM EST Office [place] [address] Espinoza, Caroline E, OT documented as of this encounter Procedures Procedure Name Priority Date/Time Associated Diagnosis Comments NON-LIBRARY ATTENDANT FINAL REPORT Routine 05/09/2023 9:01 AM EST SPECIMEN TO PATHOLOGY Routine 05/09/2023 8:33 AM EST SPECIMEN TO PATHOLOGY Routine 05/09/2023 8:33 AM EST SPECIMEN TO PATHOLOGY Routine 05/09/2023 8:33 AM EST SURGICAL PATHOLOGY REPORT Routine 05/09/2023 8:23 AM EST Cystourethroscopy, Biopsies ([id number]) Yes 05/09/2023 7:43 AM EST Urethral tumor CYSTO,URETHROSCOPY WITH BIOPSY Routine 05/09/2023 6:18 AM EST Urethral tumor documented in this encounter Results * (ABNORMAL) Non-Sieve Grader Tender Final Report (05/09/2023 9:01 AM EST) Diagnosis Discussion [id number] ? Location: [facility] The signing pathologist has (i) examined the relevant preparation(s) for the specimen(s) and (ii) rendered or confirmed the diagnosis(es). . ? Non-Sieve Grader Tender Final DIAGNOSIS Positive for Malignancy Electronically signed by: ?Ophelia BARRON, Quinten Zhang Verified: ??05/18/2023 14:18 ??Cytopathologist Performed at: ??-[facility] Dept. of Pathology, [place] [address] Inventory Specialist Manager: Corbin Doll MD, FCAP, ??CLIA Certificate: [id number] DISCUSSION Lymph node: left inguinal (FNA) - Carcinoma. The tumor resembles that which is present in the concurrent surgical penile biopsies. See also the concurrent surgical biopsies, [id number]. --- Immunohistochemistry Studies --- Interpretation: ? Immunohistochemical [...] Cell Block 1.(A) 05/18/2023 2:18 PM EST [facility] LYMPH NODE SPECIMEN / Unknown 05/09/2023 9:01 AM EST 05/09/2023 9:01 AM EST Shelbie Cervantes MD PATHOLOGY/CYTOLOGY O HERON Performing Organization Address City/[facility] Co de Phone Number [facility] [address] [place] [address] * Specimen to Pathology (05/09/2023 8:33 AM EST) AP Specimen 05/09/2023 8:33 AM EST 05/09/2023 8:33 AM EST Narrative [facility] - 05/09/2023 8:33 AM EST Specimen requisition ordered. ??Separate Pathology report to follow Shelbie Cervantes MD PATHOLOGY/CYTOLOGY O HERON [facility] [place] [address] * Specimen to Pathology (05/09/2023 8:33 AM EST) AP Specimen 05/09/2023 8:33 AM EST 05/09/2023 8:33 AM EST Narrative [facility] - 05/09/2023 8:33 AM EST Specimen requisition ordered. ??Separate Pathology report to follow Shelbie Cervantes MD PATHOLOGY/CYTOLOGY O HERON Performing Organization Address City/[facility] Co de Phone Number [facility] [place] [address] * Specimen to Pathology (05/09/2023 8:33 AM EST) AP Specimen 05/09/2023 8:33 AM EST 05/09/2023 8:33 AM EST Narrative [facility] - 05/09/2023 8:33 AM EST Specimen requisition ordered. ??Separate Pathology report to follow Shelbie Cervantes MD PATHOLOGY/CYTOLOGY O HERON Performing Organization Address [facility] Co de Phone Number [facility] [place] [address] * (ABNORMAL) Surgical Pathology Report (05/09/2023 8:23 AM EST) Final Diagnosis [id number] ? Location: [facility] The signing pathologist has (i) examined the relevant preparation(s) for the specimen(s) and (ii) rendered or confirmed the diagnosis(es). . ?Surgical Pathology DIAGNOSIS A - Transurethral penile biopsy: - Invasive carcinoma. B - Trucut penile biopsy: - Invasive carcinoma, see discussion. Electronically signed by: ?Souleymane Solano MD Verified: ??05/17/2023 16:21 ??Pathologist Performed at: ??-[facility] Dept. of Pathology, [place] [address] Inventory Specialist Manager: Corbin Doll MD, AP, ??CLIA Certificate: [id number] DISCUSSION Sections of parts A and B show extensive infiltration of invasive carcinoma, with squamoid features and patchy areas of myxoid stroma. Prior case [id number] was reviewed, with similar morphology noted. See [id number] for concurrent left inguinal lymph node fine [...] labeled C1. ??sns(A) 05/17/2023 4:21 PM EST [facility] LYMPH NODE SPECIMEN / Unknown 05/09/2023 8:23 AM EST 05/09/2023 8:23 AM EST BIOPSY SPECIMEN / Unknown 05/09/2023 8:23 AM EST 05/09/2023 8:23 AM EST LYMPH NODE SPECIMEN / Unknown 05/09/2023 8:23 AM EST 05/09/2023 8:23 AM EST Shelbie Cervantes MD PATHOLOGY/CYTOLOGY O RDERABLES [facility] [place] [address] [facility] [place] [address] documented in this encounter Visit Diagnoses Diagnosis [...] Routine documented in this encounter Care Teams Buying Intern Relationship Specialty Start Date End Date Shannan Arellano, POULTRY F[place] [address] PCP - General Family Medicine 02/03/23 documented as of this encounter
--- OUTSIDE RECORDS SUMMARY | 2024-06-04 17:32 | XMS_ITS | Referral Summary ---
Author Organization [facility] Address [address] [place] [address] Care Team Providers Care Heel Pricker Name Role Phone Eusebio Montoya PA-C Primary Care Provider [phone] Social History Tobacco Use Types Packs/Day Years Used Date Smoking Tobacco: Never Assessed Interpersonal Safety Answer Date Record ed Physically Hurt Never 01/21/2020 Verbally Threaten Not on file 01/21/2020 Sex and Gender Information Value Date Recorded Sex Assigned at Not on file Legal Sex Male 15:38 EST Gender Identity Not on file Sexual Orientation Not on file Plan of Treatment Not on file Procedures Procedure Name Priority Date/Time Associated Diagnosis Comments HEPATITIS C AB W REFLEX TO HCV RNA BY PCR Routine 12/05/2020 8:50 EDT from Last 3 Months or Most Recently Relevant to Health Maintenance Results * HEPATITIS C AB W REFLEX TO HCV RNA BY PCR (12/05/2020 8:50 EDT) Hep C Antibody Negative Negative 12/08/2020 10:46 EDT [facility] Blood VENOUS BLOOD / Unknown 12/05/2020 8:50 EDT 12/05/2020 20:57 EDT us Provider Outr Resulting Lab CHEMISTRY & BLOOD GA S ORDERABLES Final Result [facility] [address] [place] [address] from Last 3 Months or Most Recently Relevant to Health Maintenance Insurance MEDICARE [employer] [place] Care Teams Heel Pricker Relationship Specialty Start Date End Date Eusebio Montoya, [address] [place] [address] PCP - General 04/23/19
--- OUTSIDE RECORDS SUMMARY | 2024-06-04 17:32 | XMS_ITS | Encounter Summary ---
Author Organization [facility] Address [facility] Ramses [facility] [address] Care Team Providers Care It Applications Manager Name Role Phone Shannan Arellano APRN Primary Care Provider [phone] Encounter Details Date Type Department Care Team (Latest Contact Info) Description 05/31/2023 Travel Social History Tobacco Use Types Packs/Day [...] PM EST TH Visit (TeleHealth) Urology at [place] [phone] Zachary Garcia MD [facility] [place] [address] 06/11/2024 9:00 AM EST Office [place] [address] Espinoza, Caroline E, OT 07/10/2024 8:00 AM EST Office [place] [address] Espinoza, Caroline E, OT 07/24/2024 10:00 AM EST Office [place] [address] EspinozaTia de la torreyl E, OT 08/07/2024 10:00 AM EST Office [place] [address] Caroline Espinoza OT 08/21/2024 10:00 AM EST Office [place] [address] Caroline Espinoza OT documented as of this encounter Visit Diagnoses Not on filedocumented in this encounter Care Teams It Applications Manager Relationship Specialty Start Date End Date Shannan Arellano, INFORMATION CLERK [employer] [place] [address] PCP - General Family Medicine 02/03/23 documented as of this encounter
--- OUTSIDE RECORDS SUMMARY | 2024-06-04 17:32 | XMS_ITS | Encounter Summary ---
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 Social History Tobacco Use Types Packs/Day Years [...] PM EST TH Visit (TeleHealth) [place] [address] Zachary Garcia MD [facility] [place] [address] 06/11/2024 9:00 AM EST Office Visit [place] [address] Caroline Espinoza, OT 07/10/2024 8:00 AM EST Office Visit [place] [address] Caroline Espinoza, OT 07/24/2024 10:00 AM EST Office Visit [place] [address] EspinozaTia santiagoyl E, OT 08/07/2024 10:00 AM EST Office Visit [place] [address] Espinoza, Caroline E, OT 08/21/2024 10:00 AM EST Office Visit [place] [address] Espinoza, Caroline E, OT documented as of this encounter Visit Diagnoses Diagnosis 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
--- OUTSIDE RECORDS SUMMARY | 2024-06-04 17:32 | XMS_ITS | Encounter Summary ---
Author Organization [facility] Address [facility] [place] [address] Care Team Providers Care Contact Center Assistant Name Role Phone Shannan Arellano APRN Primary Care Provider [phone] Encounter Details Date Type Department Care Team (Late Contact Info) Description 05/10/2023 Telephone Urology at [facility] [place] [phone] Zachary Garcia MD [facility] [place] [address] Social History Tobacco Use Types Packs/Day Years [...] Telephone Encounter - Sarah Welch RN - 05/10/2023 4:45 PM EST Copied from [facility] #[id number]. Topic: Specialty Dept CRMs - Generic Call >> May 10, 2023 8:23 AM Evelyne Brown wrote: Specialist: Radha Relationship (if other than patient-full name): Diane - [facility] Reason for Call: Diane calling stating that they need the patient's Specimen to Pathology order changed to cytology instead. Please call with any questions documented in this encounter Plan of Treatment Upcoming Encounters Date Type Department Care Team (Late Contact Info) Description 06/07/2024 1:00 PM EST TH Visit (TeleHealth) [place] [address] Zachary Garcia MD [facility] [place] [address] 06/11/2024 9:00 AM EST Office [place] [address] Espinoza, Caroline E, OT 07/10/2024 8:00 AM EST Office [place] [address] Espinoza, Caroline E, OT 07/24/2024 10:00 AM EST Office [place] [address] Espinoza, Caroline E, OT 08/07/2024 10:00 AM EST Office [place] [address] Espinoza, Caroline E, OT 08/21/2024 10:00 AM EST Office [place] [address] Espinoza, Caroline E, OT documented as of this encounter Visit Diagnoses Not on filedocumented in this encounter Care Teams Contact Center Assistant Relationship Specialty Start Date End Date Shannan Arellano [place] [address] PCP - General Family Medicine 02/03/23 documented as of this encounter
--- OUTSIDE RECORDS SUMMARY | 2024-06-04 17:32 | XMS_ITS | Encounter Summary ---
Author Organization [facility] Address [facility] [place] [address] Care Team Providers Care Print Production Associate Name Role Phone Shannan Arellano APRN Primary Care Provider [phone] Encounter Details Date Type Department Care Team (Latest Contact Info) Description 05/24/2023 2:40 PM EST TH Visit (TeleHealth) Urology at [facility] [place] [address] Shelbie Garcia MD [facility] [place] [address] History of penile cancer Social History Tobacco Use Types Packs/Day Years Used Date Smoking Tobacco: Never Smokeless Tobacco: Never Alcohol Use Standard Drinks/Week Comments Yes 1 (1 standard drink = 0.6 oz pur e alcohol) Sex and Gender Information Value Date Recorded Sex Assigned at Not on file Gender Identity Not on file Sexual Orientation Not on file documented as of this encounter Progress Notes * Shelbie Garcia MD - 05/24/2023 2:40 PM EST Images from the original note were not included. Patient Name: Ebony Contreras Date of Service: 05/24/2023 Primary Care Provider: Shannan Arellano APRN Reason for Visit: Ebony Contreras is a 72 y.o. male who [...] suspicious for underlying invasive carcinoma. See comment. 05/09/2023 Cystoscopy/penile biopsy/groin FNA Path Invasive carcinoma with squamoid features. LEFT Groin node FNA Positive [facility] Department of Pathology and Laboratory Medicine Mini Shifter: Corbin Doll MD, FCAP CLIA Certificate: [id number] Name: EBONY CONTRERAS Provider: SHELBIE GARCIA Client: [facility] /Age/Sex: 1950 72 years Male Location: [facility] The signing pathologist has (i) examined the relevant preparation(s) for the specimen(s); and (ii) rendered or confirmed the diagnosis(es). [facility] Printed: 05/17/2023 16:21 EST Dept. of Pathology and Laboratory Medicine [place] [address] Pathology Report Collected: 05/09/2023 08:23 EST Received: 05/09/2023 09:01 EST Surgical Pathology DIAGNOSIS A - Transurethral penile biopsy: - Invasive carcinoma. B - Trucut penile biopsy: - Invasive carcinoma, see discussion. Electronically signed by: Souleymane Solano MD Verified: 05/17/2023 16:21 Pathologist Performed at: -[facility] Dept. of Pathology, [place] [address] Mini Shifter: Corbin Doll MD, FCAP, CLIA Certificate: [id number] DISCUSSION Sections of parts A and B show extensive infiltration of invasive carcinoma, with squamoid features and patchy areas of myxoid stroma. Prior case [id number] was reviewed, with similar morphology noted. Currently the patient is voided OK. 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 The patient has been for 30 years with 6 children (between them) . The patient drinks rarely Tobacco: Never. Systems review: He can walk a mile. Physical Exam: Vital Signs are reviewed. The patient appears healthy and in no distress. 04/2023 The abdomen is benign. There are no masses or organomegaly. Left groain chotty ~ 1cm mibilenodes. Exam External genitalia is normal with bilaterally descended testis. ~ 3cm Left spermatocoele/epididymal cyst. ~ 1cm firm (peasized nodule distal urethra/glans). Remained of urethra normal. Minor redness at meatus. Uncircumcised. Labs none X-rays 04/22/2023 MR Groin IMPRESSION 1. Mass of the distal corpus spongiosum, 1.2 cm. No invasion of the corpora cavernosa or glans penis, within the limitations of image quality. 2. Suspicious left inguinal lymph nodes, largest 1.4 cm. 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 I discussed the natural history of penile cancer. I discussed that he would need control of the primary lesion which I think can be achieved by a local excision. That would likely preserve sexual function and sexual sensation. His glands would be smaller and he would be hypospadiac to approximately the mid shaft. I did discuss that this would be performed under control of frozen section and that there would be the potential for positive margins and the need for a partial penectomy. I discussed the plan for control of disease in the groin which I would recommend a bilateral inguinal node dissection and left laparoscopic pelvic node dissection plus or minus right pelvic node dissection dependent on frozen section of the right inguinal nodes. I discussed the procedure of node dis section and the challenging postoperative course with the need for prolonged drains risk of infection and flap problems as well as lymphedema. The patient will see a physical therapist for stocking measurement and I instructed him to buy bike shorts. I discussed the potential need for adjuvant chemotherapy or radiation depending on what the final pathology showed. All questions were answered documented in this encounter Plan of Treatment Upcoming Encounters Date Type Department Care Team (Late st Contact Info) Description 06/07/2024 1:00 PM EST TH Visit (TeleHealth) [place] [address] Shelbie Garcia MD [facility] [place] [address] 06/11/2024 9:00 AM EST Office [place] [address] EspinozaCaroline de la torre, OT 07/10/2024 8:00 AM EST Office [place] [address] Caroline Espinoza, OT 07/24/2024 10:00 AM EST Office [place] [address] EspinozaCaroline de la torre, OT 08/07/2024 10:00 AM EST Office [place] [address] Caroline Espinoza, OT 08/21/2024 10:00 AM EST Office [place] [address] Caroline Espinoza OT documented as of this encounter Visit Diagnoses Diagnosis History of penile cancer documented in this encounter Care Teams Print Production Associate Relationship Specialty Start Date End Date Shannan Arellano, WASHER BLANKET [address] [facility] [address] PCP - General Family Medicine 02/03/23 documented as of this encounter
--- OUTSIDE RECORDS SUMMARY | 2024-06-04 17:32 | XMS_ITS | Encounter Summary ---
Author Organization [facility] [place] [facility] [place] [address] Care Team Providers Care Salesperson Sewing Machines Name Role Phone Shannan Arellano APRN Primary Care Provider [phone] Encounter Details Date Type Department Care Team (Late st Contact Info) Description 05/10/2023 [place] [address] Celena Vivar Social History Tobacco Use Types [...] PM EST TH Visit (TeleHealth) [place] [address] Zachary Garcia MD [facility] [address] 06/11/2024 9:00 AM EST Office [place] [address] Caroline Espinoza, OT 07/10/2024 8:00 AM EST Office [place] [address] Caroline Espinoza, OT 07/24/2024 10:00 AM EST Office [place] [address] Caroline Espinoza, OT 08/07/2024 10:00 AM EST Office [place] [address] EspinozaTia santiagoyl E, OT 08/21/2024 10:00 AM EST Office [place] [address] Caroline Espinoza, OT documented as of this encounter Visit Diagnoses Not on filedocumented in this encounter Care Teams Salesperson Sewing Machines Relationship Specialty Start Date End Date Shannan Arellano, DIRECTOR OF PHILANTHROPY [place] [address] PCP - General Family Medicine 02/03/23 documented as of this encounter
--- OUTSIDE RECORDS SUMMARY | 2024-06-04 17:32 | XMS_ITS | Encounter Summary ---
Author Organization [facility] Address [facility] [place] [address] Care Team Providers Care Systems Trainer Name Role Phone Shannan Arellano APRN Primary Care Provider [phone] Encounter Details Date Type Department Care Team (Latest Contact Info) Description 03/18/2023 Travel Social History Tobacco Use Types Packs/Day [...] PM EST TH Visit (TeleHealth) [place] [address] Zachary Garcia MD [facility] [place] [address] 06/11/2024 9:00 AM EST Office [place] [address] Caroline Espinoza, OT 07/10/2024 8:00 AM EST Office [place] [address] Caroline Espinoza, OT 07/24/2024 10:00 AM EST Office [place] [address] EspinozaCaroline de la torre, OT 08/07/2024 10:00 AM EST Office [place] [address] Caroline Espinoza OT 08/21/2024 10:00 AM EST Office [place] [address] Caroline Espinoza OT documented as of this encounter Visit Diagnoses Not on filedocumented in this encounter Care Teams Systems Trainer Relationship Specialty Start Date End Date Shannan Arellano, [employer] [place] [address] [place] [address] PCP - General Family Medicine 02/03/23 documented as of this encounter
[2024-06-04 17:45] LABS: ALT 23 U/L (16-63); AST 26 U/L (15-37); Albumin 3.6 g/dL (3.4-5.0); Alkaline Phosphatase 63 U/L (46-116); BUN 20 mg/dL (7-18); Bilirubin, Total 0.25 mg/dL (0.2-1.0); CREATININE 1.1 mg/dL (0.70-1.30); Calcium 8.7 mg/dL (8.5-10.1); Chloride 107 mmol/L (98-107); Estimated GFR 71.32 (mL/min/1.73m2); Glucose 89 mg/dL (74-106); Potassium 4.2 mmol/L (3.5-5.1); Sodium 143 mmol/L (136-145); Total Protein 7.5 g/dL (6.4-8.2)
== END 2024-06-04 17:25 | disposition home or self-care (01) ==
LOC: LBO 17:25
PROVIDERS: PCP Nurse Practitioner Family; Visit Provider Urology
DX: C60.9 Malignant neoplasm of penis, unspecified (principal)
CPT/HCPCS: 36415; 80053

== ENCOUNTER 2025-04-23 13:12 | Outpatient (CLI) | payer MEDICARE, OTHER, SELFPAY ==
--- NOTE | 2025-04-23 08:43 | DI.RAD_ITS ---
Exam(s) XR SHOULDER LT COMPLETE 2+V EXAM: XR SHOULDER LT COMPLETE 2+V CLINICAL HISTORY: LEFT SHOULDER PAIN. TECHNIQUE: 2D digital imaging was performed of the left shoulder. Two images were obtained. Grashey and axillary views were obtained. COMPARISON: No exams were available for comparison FINDINGS: BONES: No acute fracture is present. No bony destructive lesion is seen. There is a subchondral cyst in the lateral aspect of the humeral head. JOINTS: No dislocation present. There are mild degenerative changes seen at both the acromioclavicular and glenohumeral joints. There is a small osteophyte at the inferior aspect of the humeral head. SOFT TISSUE: Normal. IMPRESSION: Osteoarthritis of the left shoulder. DATA REPOSITORY: RADIATION DOSE DELIVERED:
== END 2025-04-23 13:13 | disposition home or self-care (01) ==
LOC: DIORS 13:12
PROVIDERS: PCP Nurse Practitioner Family; Referring Provider Nurse Practitioner Family; Visit Provider Student in an Organized Health Care Education/Training Program
DX: M25.512 Pain in left shoulder (principal); M75.102 Unspecified rotator cuff tear or rupture of left shoulder, not specified as traumatic
CPT/HCPCS: 99213; 73030

== ENCOUNTER → 2025-05-20 03:48 | Outpatient (CLI) | payer MEDICARE, OTHER, SELFPAY ==
--- NOTE | 2025-05-20 14:25 | DI.RAD_ITS ---
Exam(s) XR EYE FOREIGN BODY EXAM: XR EYE FOREIGN BODY CLINICAL HISTORY: PRE MRI FB,LT SHOULDER PAIN, LT ROTATOR CUFF TEAR,H/O METAL EXPOSURE. TECHNIQUE: 2D digital imaging was performed. COMPARISON: No exams were available for comparison FINDINGS: Two views There is metallic foreign body density measuring 4 x 1 mm located in the anterior infraorbital soft tissues, anterior to the upper left maxillary sinus- inferior left orbit. IMPRESSION: Abnormal metallic foreign body as described above. DATA REPOSITORY: RADIATION DOSE DELIVERED:
== END ==
LOC: DI 03:48
PROVIDERS: PCP Nurse Practitioner Family; Visit Provider Student in an Organized Health Care Education/Training Program
DX: M75.102 Unspecified rotator cuff tear or rupture of left shoulder, not specified as traumatic (principal); R93.0 Abnormal findings on diagnostic imaging of skull and head, not elsewhere classified
CPT/HCPCS: 70030

== ENCOUNTER → 2025-05-30 00:50 | Outpatient (CLI) | payer MEDICARE, OTHER, SELFPAY ==
--- NOTE | 2025-05-30 06:45 | DI.CT_ITS ---
Exam(s) CT UPPER EXTREMITY LT WO EXAM: CT UPPER EXTREMITY LT WO CLINICAL HISTORY: L Shoulder pain,lt rotator cuff tear,m75.102 TECHNIQUE: Imaging Protocol: Axial computed tomography images with coronal and sagittal reformatted images were created and reviewed. CONTRAST MATERIAL: Noncontrast- COMPARISON: CR XR SHOULDER LT COMPLETE 2+V from 04/23/2025 FINDINGS: Bones: There is no evidence of fracture or dislocation. Bony alignment is satisfactory. No cellulitic or osteomyelitic changes are identified. There are degenerative cysts in the superior humeral head. No suspicious lesions. Joints: There is moderate spurring at the AC joint. The glenohumeral joint space is maintained however there is mild spurring at the glenoid. There is spurring at the inferior margin of the humeral head. There are faint calcifications which may correspond to labral calcifications. Soft Tissues: There is a large calcification in the supraspinatus tendon measuring 18 mm in length by 5 millimeters in width. There are faint calcifications in the supraspinatus tendon. There is no significant muscle atrophy. IMPRESSION: Degenerative changes of the AC joint and glenohumeral joint. Calcific tendinosis, greatest in the spine subscapularis. RADIATION DOSE DELIVERED: 145.82mGy.cm Total DLP DATA REPOSITORY: All CT scans at this facility are submitted to the National Radiology Data Registry (NRDR) Dose Index Registry (DIR) with the [employer] ([employer]). RADIATION OPTIMIZATION: All CT scans at this facility use at least one of these dose optimization techniques: automated exposure control; mA and/or kV adjustment per patient size (includes targeted exams where dose is matched to clinical indication); or iterative reconstruction.
== END ==
LOC: DI 00:50
PROVIDERS: PCP Nurse Practitioner Family; Visit Provider Student in an Organized Health Care Education/Training Program
DX: M19.012 Primary osteoarthritis, left shoulder (principal)
CPT/HCPCS: 73200

== ENCOUNTER → 2025-06-04 13:07 | Outpatient (BNVA) | payer MEDICARE, OTHER, SELFPAY | PROVIDERS: PCP Nurse Practitioner Family; Referring Provider Nurse Practitioner Family; Visit Provider Student in an Organized Health Care Education/Training Program | DX: M75.102 Unspecified rotator cuff tear or rupture of left shoulder, not specified as traumatic (principal) | CPT/HCPCS: 99213 ==